=== PATIENT | female | born 1970 | race Caucasian/White ===

== ENCOUNTER 2016-10-10 19:59 | Emergency (ER) | payer MEDICAID ==
[~2016-10-10] VITALS: Ht 172.7 cm; Wt 127.0 kg
[~2016-10-10 19:59] MED LIST: ACYCLOVIR 400M400 MG PO; AMOXICILLIN 50500 MG PO; AMOXICILLIN AND1 TA2 PO; AMOXIL500 M1 PO; AZO STANDARD97.5 MG PO; BACTRIM DS 8001 TAB PO; CIPRO 500MG TA500 MG PO; CLINDAMYCIN HC300 MG PO; Compazine10 MG PO; ESTRADIOL1 EAC3 TD; HYDROCHLOROTH12.5 M1 PO; HYDROCODONE-APA1 TA2 PO; IBU400 MG PO; KEFLEX 500MG.500 MG PO; LISINOPRIL HCTZ1 TAB PO; MEDROL 4MG. DOSE4 MG PO; PREMPRO 0.625 M1 TAB PO; QVAR0.08 MG/AC IH; TORADOL10 MG PO; TYLENOL 8 HOUR650 MG PO; VALIUM 5MG TABLE5 MG PO
--- OUTSIDE RECORDS SUMMARY | 2016-10-10 20:13 | External Medical Summary Rpt ---
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 Name Role Phone [facility] Unavailable Unavailable MEDICAL GROUP, [facility] HERNANDEZ TER, HERNANDEZ TER Unavailable Unavailable JAVIER L, JAVIER L Unavailable Unavailable [facility]available [facility], [facility] MAZARIEGOS ALL, MAZARIEGOS ALL Unavailable Unavailable GAGE, GAGE Unavailable Unavailable GAGE MOTLEY, Unavailable Unavailable GAGE MOTLEY JACOB ARELY, Unavailable Unavailable JACOB ARELY [place] [facility] YOLANDE TOMAS-Zuleyma Unavailable Unavailable CORBINYOLANDE-C CORBIN SPARROW JADEN, SPARROW JADEN Unavailable Unavailable TUCKER, TUCKER Unavailable Unavailable ARAGON, ARAGON Unavailable Unavailable FRYMAN, FRYMAN Unavailable Unavailable FRYMAN EUG, FRYMAN Unavailable Unavailable EUG JEFFRY REESE, JEFFRY Unavailable Unavailable HUGH ROSIBEL ROMAN MD, Unavailable Unavailable ROSIBEL CAPELLANPEL SHASTA, HARPEL Unavailable Unavailable SHASTA [facility] Unavailable Unavailable INC, [facility] Unavailable Unavailable [facility], [facility] Unavailable Unavailable HOSPITAL P, [facility] P [facility], Unavailable Unavailable [facility] CANTRELL AMA, CANTRELL Unavailable Unavailable [facility]MA [facility] Janes Jamison MD, Unavailable Unavailable Janes LOPEZ, Unavailable Unavailable EVENS LOPEZ, Unavailable Unavailable EVENS RAMÍREZ, Unavailable Unavailable HARPER RAMÍREZ [facility] Un[facility], [facility] RENEE PRA, RENEE PRA Unavailable Unavailable PICKLESIMER JR SANTOSH, Unavailable Unavailable [facility]LESIM[facility] JR SANTOSH SHANIKA HEN, SHANIKA Unavailable Unavailable HEN CUNNINGHAM, CUNNINGHAM Unavailable Unavailable SADEK MOH, SADEK MOH Unavailable Unavailable SCHULSTAD CAM, Unavailable Unavailable SCHULSTAD CAM MAURILIO, STONE Unavailable Unavailable SAVANNA BARKER, SAVANNA Unavailable Unavailable LUCERO Purpose Continuity of Care Document - 12-11-2012 through 2016 Problems Code Diagnosis DOS Provider Status [id number] PAIN IN 07-10-2016 [place] RIGHT [facility] SHOULDER C CENTE M5381 OTHER SPEC 07-10-2016 [place] DORSOPATHIE CHIROPRACTI S C CENTE OCCIPITO-AT HEATHER-AXIAL RGN M5386 OTHER 07-10-2016 [place] SPECIFIED [facility]IROPRACTI DORSOPATHIE C CENTE S LUMBAR REGION M5442 LUMBAGO 07-10-2016 [place] WITH [facility] SCIATICA C CENTE LEFT SIDE M546 PAIN IN 07-10-2016 [place] THORACIC [facility] SPINE C CENTE M9906 SEGMENTAL & 07-10-2016 [place] SOMATIC [facility] DYSFUNCTION C CENTE LOWER EXTREMITY [id number] ACUTE 06-29-2016 [facility] SUPPURATIVE PHYSICIANS OM W/O GROUP RUPT EAR DRUM RT EAR R109 UNSPECIFIED 06-29-2016 [facility] ABDOMINAL PHYSICIANS PAIN GROUP J40 BRONCHITIS 05-25-2016 [facility] NOT PHYSICIANS SPECIFIED GROUP ACUTE OR CHRONIC J0100 ACUTE 05-22-2016 [facility] MAXILLARY PHYSICIANS SINUSITIS GROUP UNSPECIFIED Z1231 ENCOUNTER 05-01-2016 [facility] NEOPLASM BREAST N951 MENOPAUSAL 04-25-2016 [facility] AND FEMALE PHYSICIANS CLIMACTERIC GROUP STATES D94316 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[facility] 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 AND 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 EXAM PHYSICIANS GENERAL RTN GROUP W/O ABNORMAL FIND Z1212 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[facility] SCREENING PHYSICIANS MALIGNANT GROUP NEOPLASM RECTUM J0390 ACUTE 04-13-2016 [facility] TONSILLITIS PHYSICIANS GROUP UNSPECIFIED M542 CERVICALGIA 03-30-2016 [place] [facility]ENT[facility] [id number] SPRAIN 03-30-2016 [place] LIGAMENTS CHIROPRACTI LUMBAR C CENTE SPINE INITIAL ENCOUNTER [id number] STRAIN 03-30-2016 [place] MUSCLE [facility]IROPRACTI FASCIA & C CENTE TENDON LOW BACK INITIAL R38347 PAIN IN 03-28-2016 [facility] M7989 OTHER 03-28-2016 [facility] SPECIFIED MEDICAL SOFT TISSUE IMAGING ASS DISORDERS 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 M654 RADIAL 03-15-2016 [facility] STYLOID PHYSICIANS TENOSYNOVIT GROUP IS DE QUERVAIN Q21687 GANGLION 03-15-2016 [facility] RIGHT WRIST PHYSICIANS GROUP N67950 GANGLION 03-15-2016 [facility] LEFT WRIST PHYSICIANS GROUP J029 ACUTE 03-07-2016 [facility] PHARYNGITIS PHYSICIANS GROUP UNSPECIFIED H64727 PAIN IN 03-07-2016 [facility] WRIST [facility] ASS Z01907 GANGLION 03-07-2016 [facility] RIGHT HAND PHYSICIANS GROUP U17921 GANGLION 03-07-2016 [facility] LEFT HAND PHYSICIANS GROUP A41407 PAIN IN 03-07-2016 [facility] M9903 SEGMENTAL & 01-21-2016 [place] SOMATIC CHIROPRACTI DYSFUNCTION C CENTE OF LUMBAR REGION M545 LOW BACK 01-11-2016 [place] PAIN [facility]IROPRACTI C CENTE I10 ESSENTIAL 01-04-2016 [facility] HYPERTENSIO INC N K1120 SIALOADENIT 01-04-2016 [facility], UNSPECIFIED PLLC K1121 ACUTE 01-04-2016 [facility] SIALOADENIT [facility] IS INC J329 CHRONIC 12-27-2015 [facility] J0140 ACUTE 11-22-2015 [facility] S MEDICAL UNSPECIFIED GROUP H6980 OTHER SPEC 11-09-2015 [facility] DISORDERS PHYSICIANS EUSTACHIAN GROUP TUBE UNS EAR V16935 UNSPECIFIED 11-09-2015 [facility] ASTHMA PHYSICIANS UNCOMPLICAT GROUP ED R5383 OTHER 11-09-2015 [facility] FATIGUE PHYSICIANS GROUP Z840 FAMILY 11-09-2015 [facility] HISTORY PHYSICIANS DISEASES GROUP SKIN & SUBQ TISSUE Z0100 ENCOUNTER 11-04-2015 [facility] EXAM EYES & GRE VISION W/O ABNORMAL FIND H6690 OTITIS 09-22-2015 [facility] MEDIA PHYSICIANS UNSPECIFIED GROUP UNSPECIFIED EAR J040 ACUTE 09-22-2015 [facility] LARYNGITIS PHYSICIANS GROUP U45263 OTHER ACUTE 09-12-2015 [facility] OM RECURRENT BILAT J0190 ACUTE 09-12-2015 [facility] J209 ACUTE 09-12-2015 [facility]IS [facility] D259 LEIOMYOMA 06-03-2015 [facility] UNSPECIFIED K660 PERITONEAL 06-03-2015 [facility] ADHESIONS [facility] POSTPROC INC POSTINFECTI ON N736 FEMALE 06-03-2015 [facility] PELVIC PHYSICIANS PERITONEAL GROUP ADHESIONS POSTINFECTI VE N800 ENDOMETRIOS 06-03-2015 [facility] IS OF LLC UTERUS N831 CORPUS 06-03-2015 [facility] LUTEUM CYST LLC N8320 UNSPECIFIED 06-03-2015 [facility] OVARIAN PHYSICIANS CYSTS GROUP N856 INTRAUTERIN 06-03-2015 [facility] E SYNECHIAE LLC N938 OTHER SPEC 06-03-2015 [facility] ABNORMAL PHYSICIANS UTERINE & GROUP VAGINAL BLEEDING R102 PELVIC AND 06-03-2015 [facility] PERINEAL [facility] PAIN INC B9689 OTH SPEC 05-24-2015 ROSIBEL Ceballos BACTERIAL JESSIE BOTELLO AGNT CAUSE DZ CLASSIFIED ELSW N760 ACUTE 05-24-2015 ROSIBEL ROMAN MD X74787 ENCOUNTER 05-24-2015 [facility] FOR OTHER [facility] PREPROCEDUR INC AL EXAMINATION N852 HYPERTROPHY 05-10-2015 [facility] N9489 OTH COND 05-04-2015 [facility] Ceballos ASSOC W/EB ROMAN MD GEN ORGN & MENSTRUAL CYCL 4019 UNSPECIFIED 02-03-2015 [facility] N 89801 ASTHMA, 02-03-2015 [facility] STATUS 5990 URINARY 02-03-2015 [facility] SITE NOT SPECIFIED 33162 ABDOMINAL 01-05-2015 [facility] PAIN OTHER [facility] SPECIFIED INC SITE 91135 OTHER 11-03-2014 [facility] SPECIFIED MEDICAL DISORDER OF IMAGING ASS KIDNEY AND URETER 52299 ABDOMINAL 11-03-2014 [facility] PAIN RIGHT [facility] UPPER INC QUADRANT V1301 PERSONAL 11-03-2014 [facility] HISTORY OF [facility] URINARY INC CALCULI 462 ACUTE 10-07-2014 [facility] PHARYNGITIS [facility] P 31402 ACUTE 10-07-2014 [facility] MENTION OF OBSTRUCTIO 01201 UNSPECIFIED 09-14-2014 ROSIBEL ROMAN MD AND VULVOVAGINI TIS 6262 EXCESSIVE 09-14-2014 ROSIBEL Ceballos OR MELANY ROMAN MD MENSTRUATIO N 0794 HUMAN 08-28-2014 [facility] VIRUS IN CCE & UNS SITE 6268 OTH D/O 08-28-2014 [facility] MENSTRUATIO [facility] N&OTH ABN INC BLEED FE GNT TRACT 6202 OTHER AND 08-27-2014 ROSIBEL Ceballos UNSPECREEMA ROMAN MD OVARIAN CYST V7283 OTHER 08-27-2014 [facility] SPECIFIED [facility] PRE-OPERATI INC VE EXAMINATION 6259 UNSPEC 08-25-2014 [facility] SYMPTOM [facility] ASSOC INC W/FEMALE GENITAL ORGANS 6272 SYMPTOMATIC 07-30-2014 ROSIBEL ROMAN MD MENOPAUSAL/ FEMALE CLIMACTERIC STATES V7612 OTHER 06-16-2014 [facility] SCREENING [facility] MAMMOGRAM INC 401.9 401.9 12-11-2012 [place] HYPERTENSIO [facility] 493.90 493.90 12-11-2012 [facility] K11.21 ACUTE SIALOADENIT IS N73.6 FEMALE [facility] PERITONEAL ADHESIONS (POSTINFECT DOMIN[facility]) R10.9 UNSPECIFIED ABDOMINAL PAIN R16.2 HEPATOMEGAL Y WITH SPLENOMEGAL Y, NOT ELSEWHERE CLASSIFIED Allergies, Adverse Reactions, Alerts Type Drug Allergy Adverse Reaction to Substance Substance Reaction Severity Erythromycin Unknown Unknown Chlorpheniramine Unknown Unknown Ibuprofen Unknown Unknown Hydrocodone Unknown Unknown Clinical Alert Notifications Alert Asthma: no influenza vaccine in the last 365 days Medications Na ND Rx Da Fi Fi Am Da Di Ph RX Ph St me C No te ll ll ou ys ag ar # ys at rm s nt no ma ic us Or Da si cy ia de te s n re d ES 00 03 04 8. 28 00 RI Ac TR 37 -1 -0 00 00 TE ti AD 84 3- 7- 0 01 ve IO 64 20 20 15 AI L 02 17 17 92 D 0. 6 37 PH 1 AR MG MA CY PA TC #3 H 93 8 AM 00 02 03 20 10 00 RI Ac OX 78 -2 -2 .0 00 TE ti IC 12 4- 4- 00 01 ve IL 61 20 20 17 AI LI 30 17 17 27 D N 5 55 PH 50 AR 0 MA MG CY CA #3 PS 93 UL 8 E LI 68 02 03 30 30 00 RI Ac SI 18 -2 -1 .0 00 TE ti NO 00 2- 7- 00 01 ve OR 52 20 20 16 AI IL 00 17 17 26 D -H [address] AR Z MA 20 CY -2 5 #3 MG 93 8 TA B ES 00 02 03 8. 28 00 RI Ac TR 37 -1 -1 00 00 TE ti AD 84 5- 0- 0 01 ve IO 64 20 20 15 AI L 02 17 17 92 D 0. 6 37 PH 1 AR MG MA CY PA TC #3 H 93 8 AM 66 01 02 20 10 00 RI Ac OX 68 -2 -2 .0 00 TE ti -C 51 6- 4- 00 01 ve LA 00 20 20 16 AI V 10 17 17 85 D 87 0 91 PH 5- AR 12 MA 5 CY MG #3 TA 93 BL 8 ET OR 59 01 02 10 5 00 RI Ac ED 74 -2 -2 .0 00 TE ti NI 60 6- 4- 00 01 ve SO 17 20 20 16 AI NE 50 17 17 85 D 6 92 PH 20 AR MA MG CY TA #3 BL 93 ET 8 LI 68 01 02 30 30 00 RI Ac SI 18 -1 -1 .0 00 TE ti NO 00 5- 0- 00 01 ve OR 52 20 20 16 AI IL 00 17 17 26 D -H [address] AR Z MA 20 CY -2 5 #3 MG 93 8 TA B AM 66 01 01 20 10 00 RI Ac OX 68 -0 -2 .0 00 TE ti -C 51 2- 7- 00 01 ve LA 00 20 20 16 AI V 10 17 17 49 D 87 0 65 PH 5- AR 12 MA 5 CY MG #3 TA 93 BL 8 ET ES 00 12 01 8. 28 00 RI Ac TR 37 -2 -2 00 00 TE ti AD 84 6- 0- 0 01 ve IO 64 20 20 15 AI L 02 16 17 92 D 0. 6 37 PH 1 AR MG MA CY PA TC #3 H 93 8 CL 65 12 01 20 10 00 RI Ac AR 86 -2 -2 .0 00 TE ti IT 20 2- 0- 00 01 ve HR 22 20 20 16 AI OM 66 16 17 36 D YC 0 13 PH IN AR MA 50 CY 0 MG #3 93 TA 8 BL ET OR 00 12 01 20 10 00 RI Ac OM 60 -2 -2 0. 00 TE ti ET 31 2- 0- 00 01 ve RAMIRES 58 20 20 0 16 AI ZI 65 16 17 36 D NE 4 14 PH -D AR M MA SY CY RU P #3 93 8 OR 00 12 01 10 5 00 RI Ac ED 14 -2 -2 .0 00 TE ti NI 39 2- 0- 00 01 ve SO 73 20 20 16 AI NE 80 16 17 36 D 1 15 PH 20 AR MA MG CY TA #3 BL 93 ET 8 AL 00 12 01 22 25 00 RI Ac BU 48 -2 -2 5. 00 TE ti TE 79 2- 0- 00 01 ve RO 90 20 20 0 16 AI L 42 16 17 36 D JUAREZ 5 17 PH L AR 1. MA 25 CY MG #3 /3 93 8 ML SO L AM 00 12 01 20 10 00 RI Ac OX 78 -1 -1 .0 00 TE ti IC 12 9- 3- 00 01 ve IL 61 20 20 16 AI LI 30 16 17 31 D N 5 64 PH 50 AR 0 MA MG CY CA #3 PS 93 UL 8 E LI 68 12 01 30 30 00 RI Ac SI 18 -1 -1 .0 00 TE ti NO 00 5- 3- 00 01 ve OR 52 20 20 16 AI IL 00 16 17 26 D -H [address] AR Z MA 20 CY -2 5 #3 MG 93 8 TA B SO 00 07 0 No DI 40 -1 UM 97 0- Lo 98 20 ng CH 30 13 er LO 9 RI Ac DE ti ve 0. 9% SO RUBY TI ON Sa 63 07 0 No li 80 -1 ne 70 0- Lo 10 20 ng Fl 07 13 er us 5 h Ac 10 ti ML ve Sy ri ng e Me 00 07 0 No th 00 -1 yl 90 0- Lo pr 19 20 ng ed 00 13 er ni 9 so Ac lo ti ne ve So d Juarez cc in a KE 00 07 0 No TO 40 -1 RO 93 0- Lo LA 79 20 ng C 50 13 er 30 1 Ac MG ti /M ve L AL AC 51 07 0 No ET 07 -1 AM 90 0- Lo IN 16 20 ng OP 19 13 er HE 9H N Ac W/ ti CO ve DE IN E #3 TA K CE 00 07 0 No FT 40 -1 RI 97 0- Lo AX 33 20 ng ON 30 13 er E 4 1 Ac GM ti ve AL So 00 07 0 No d 07 -1 Ch 47 0- Lo lo 10 20 ng ri 11 13 er de 3 Ac 0. ti 9% ve 50 ML Ad v Vital Signs 12-11-2012 05:25 Name Value Interpretat Reference Comment ion Range Body 99.1 [degF] Temperature BP 90 mm[Hg] Diastolic BP Systolic 164 mm[Hg] Heart 96 /min Rate/Pulse O2% 97 % Respiratory 22 /min Rate Results Labs Lab Lab Date Result Refere Interp Status Commen Order Detail nces retati t Range on STREP SCREEN (RAPID) (12-11-2012 04:31) STREP NEGATIV complet SCREEN 013 E ed (RAPID) 04:31 Procedures Procedure DOS Code Location Performer Comment [facility] 22822 [place] [facility] T[facility] 7 MANIPULAT [facility] SPINAL 1-2 REGIONS MANUAL 99173 [place] [facility] 7 TQS 1/> [facility] REGIONS TIC CENTE EACH 15 MINUTES THERAPEUT 39314 [facility] STONE IC 7 PHYSICIAN PROPHYLAC S GROUP TIC/DX INJECTION SUBQ/IM URNLS DIP 61660 [facility] 7 PHYSICIAN PHYSICIAN STICK/TAB S GROUP S GROUP LET RGNT NON-AUTO W/O MICRSCP INJECTION J0696 [facility] STONE 7 PHYSICIAN CEFTRIAXO S GROUP NE SODIUM PER 250 MG INJECTION J0696 [facility] STONE 6 PHYSICIAN CEFTRIAXO S GROUP NE SODIUM PER 250 MG THERAPEUT 36238 [facility] STONE IC 6 PHYSICIAN PROPHYLAC S GROUP TIC/DX INJECTION SUBQ/IM INJECTION J0696 [facility] FRYMAN 6 PHYSICIAN CEFTRIAXO S GROUP NE SODIUM PER 250 MG THERAPEUT 17275 [facility] FRYMAN IC 6 PHYSICIAN PROPHYLAC S GROUP TIC/DX INJECTION SUBQ/IM SCREENING G0202 [facility] MAMMOGRAP INC INC HY MICHELE INCL CAD WHEN PERFORMD COMPUTER- 62426 [facility] AIDED 6 [facility] DETECTION INC INC SCREENING MAMMOGRAP HY IADNA NOS 62943 BIO BIO 6 REFERNCE REFERNCE AMPLIFIED LABORATOR LABORATOR PROBE TQ IES IES EACH ORGANISM IADNA 91071 BIO BIO NEISSERIA 6 REFERNCE REFERNCE LABORATOR LABORATOR GONORRHOE IES IES AE AMPLIFIED PROBE TQ CYTP C/V 54228 BIO BIO AUTO THIN 6 REFERNCE REFERNCE LYR LABORATOR LABORATOR PREPJ SCR IES IES MNL RESCR PHYS IADNA 81363 [facility] NEISSERIA 6 PHYSICIAN PHYSICIAN S GROUP S GROUP GONORRHOE AE DIRECT PROBE TQ IADNA 07161 BIO BIO CHLAMYDIA 6 REFERNCE REFERNCE LABORATOR LABORATOR TRACHOMAT IES IES IS AMPLIFIED PROBE TQ URINLS 77547 [facility] HARPEL DIP 6 PHYSICIAN SHASTA STICK/TAB S GROUP LET REAGNT NON-AUTO MICRSCPY CULTURE 93568 [facility] HARPEL CHLAMYDIA 6 PHYSICIAN SHASTA ANY S GROUP SOURCE IADNA 16290 BIO BIO TRICHOMON 6 REFERNCE REFERNCE LABORATOR LABORATOR VAGINALIS IES IES AMPLIFIED PROBE TECH INJECTION J0696 [facility] FR[facility]MAN 6 PHYSICIAN EUG CEFTRIAXO S GROUP NE SODIUM PER 250 MG THERAPEUT 50506 [facility] FRYMAN IC 6 PHYSICIAN EUG PROPHYLAC S GROUP TIC/DX INJECTION SUBQ/IM MANUAL 66488 [place] [facility] THERAPY 6 AMA TQS 1/> [facility] REGIONS TIC CENTE EACH 15 MINUTES CHIROPRAC 99847 [place] CANT[facility] TIC 6 AMA MANIPULAT [facility]OP[facility] TX TIC CENTE SPINAL 3-4 REGIONS CHIROPRAC 69647 [place] CANTRELL TIC 6 AMA MANIPLTV CHIROPRAC TX TIC CENTE EXTRASPIN AL 1/> REGION MRI UPPER 61245 [facility] EXTREMITY INC INC OTH THAN JT W/O CONTR MATRL MANUAL 20042 [place] [facility] THERAPY 6 AMA TQS 1/> [facility] REGIONS TIC CENTE EACH 15 MINUTES APPL 74884 [place] C[facility] MODALITY 6 AMA 1/> AREAS CHIROPRAC TIC CENTE ULTRASOUN D EA 15 MIN [facility] 40724 [place] CANTRELL TIC 6 AMA MANIPULAT [facility] TX TIC CENTE SPINAL 3-4 REGIONS APPL 37118 [place] CANTRELL MODALITY 6 AMA 1/> AREAS CHIROPRAC ELEC TIC CENTE STIMJ UNATTENDE D APPL 31301 [place] CANTRELL MODALITY 6 AMA 1/> AREAS CHIROPRAC ELEC TIC CENTE STIMJ UNATTENDE D RADEX 70445 [facility] HAND 2 6 [facility] VIEWS INC INC MANUAL 25075 [place] CANTRELL THERAPY 6 AMA TQS 1/> CHIROPRAC REGIONS TIC CENTE EACH 15 MINUTES APPL 86909 [place] CANTRELL MODALITY 6 AMA 1/> AREAS CHIROPRAC TIC CENTE ULTRASOUN D EA 15 MIN CHIROPRAC 74659 [place] CANTRELL TIC 6 AMA MANIPULAT CHIROPRAC DOMINICK TX TIC CENTE SPINAL 3-4 REGIONS RADEX 04605 [facility] MAZARIEGOS ALL WRIST 2 6 MEDICAL VIEWS IMAGING ASS THERAPEUT 25186 [facility] IC 6 PHYSICIAN PHYSICIAN PROPHYLAC S GROUP S GROUP TIC/DX INJECTION SUBQ/IM APPL 20915 [place] CANTRELL MODALITY 6 AMA 1/> AREAS CHIROPRAC TIC CENTE ULTRASOUN D EA 15 MIN [facility]OP[facility]AC 74030 [place] CANTRELL TIC 6 AMA MANIPULAT CHIROPRAC [facility] TX TIC CENTE SPINAL 3-4 REGIONS MANUAL 04237 [place] CANT[facility]LL THERAPY 6 AMA TQS 1/> CHIROPRAC REGIONS TIC CENTE EACH 15 MINUTES APPL 96993 [place] CANTRELL MODALITY 6 AMA 1/> AREAS CHIROPRAC ELEC TIC CENTE STIMJ UNATTENDE D APPL 24821 [place] CANTRELL MODALITY 6 AMA 1/> AREAS CHIROPRAC ELEC TIC CENTE STIMJ UNATTENDE D MANUAL 36823 [place] CANT[facility]LL THERAPY 6 AMA TQS 1/> CHIROPRAC REGIONS TIC CENTE EACH 15 MINUTES APPL 94958 [place] CANTRELL MODALITY 6 AMA 1/> AREAS CHIROPRAC TIC CENTE ULTRASOUN D EA 15 MIN [facility]AC 36467 [place] CANTRELL TIC 6 AMA MANIPULAT CHIROPRAC [place] TX TIC CENTE SPINAL 3-4 REGIONS APPL 55257 [place] CANT[facility]LL MODALITY 6 AMA 1/> AREAS CHIROPRAC ELEC TIC CENTE STIMJ UNATTENDE D MANUAL 50491 [place] CANT[facility]LL THERAPY 6 AMA TQS 1/> CHIROPRAC REGIONS TIC CENTE EACH 15 MINUTES APPL 74117 [place] CANT[facility]LL MODALITY 6 AMA 1/> AREAS CHIROPRAC TIC CENTE ULTRASOUN D EA 15 MIN [facility]IROPRAC 84975 [place] CANTRELL TIC 6 AMA MANIPULAT CHIROPRAC [place] TX TIC CENTE SPINAL 3-4 REGIONS MANUAL 72956 [place] [facility] THERAPY 6 AMA TQS 1/> CHIROPRAC REGIONS TIC CENTE EACH 15 MINUTES APPL 21756 [place] CANT[facility]LL MODALITY 6 AMA 1/> AREAS CHIROPRAC TIC CENTE ULTRASOUN D EA 15 MIN [facility]OPRAC 25226 [place] CANT[facility]LL TIC 6 AMA MANIPULAT CHIROPRAC DOM[place] TX TIC CENTE SPINAL 3-4 REGIONS APPL 22505 [place] C[facility] MODALITY 6 AMA 1/> AREAS CHIROPRAC ELEC TIC CENTE STIMJ UNATTENDE D APPL 04356 [place] C[facility] MODALITY 6 AMA 1/> AREAS CHIROPRAC ELEC TIC CENTE STIMJ UNATTENDE D MANUAL 18517 [place] [facility] THERAPY 6 AMA TQS 1/> CHIROPRAC REGIONS TIC CENTE EACH 15 MINUTES APPL 60127 [place] [facility] MODALITY 6 AMA 1/> AREAS CHIROPRAC TIC CENTE ULTRASOUN D EA 15 MIN CHIROPRAC 91261 [place] C[facility] TIC 6 AMA MANIPULAT CHIROPRAC [facility] TX TIC CENTE SPINAL 3-4 REGIONS CHIROPRAC 54334 [place] C[facility] TIC 6 AMA MANIPLTV CHIROPRAC TX TIC CENTE EXTRASPIN AL 1/> REGION THERAPEUT 91446 [place] [facility] IC PX 1/> 6 AMA AREAS CHIROPRAC EACH 15 TIC CENTE MIN EXERCISES CHIROPRAC 98803 [place] [facility] TIC 6 AMA MANIPULAT CHIROPRAC [facility] TX TIC CENTE SPINAL 3-4 REGIONS APPL 05633 [place] [facility] MODALITY 6 AMA 1/> AREAS CHIROPRAC ELEC TIC CENTE STIMJ UNATTENDE D APPL 77033 [place] [facility] MODALITY 6 AMA 1/> AREAS CHIROPRAC TRACTION TIC CENTE MECHANICA L CHIROPRAC 90231 [place] [facility] TIC 6 AMA MANIPLTV CHIROPRAC TX TIC CENTE EXTRASPIN AL 1/> REGION MANUAL 14712 [place] [facility] THERAPY 6 AMA TQS 1/> [facility]RAC REGIONS TIC CENTE EACH 15 MINUTES APPL 94817 [place] [facility] MODALITY 6 AMA 1/> AREAS CHIROPRAC TIC CENTE ULTRASOUN D EA 15 MIN MANUAL 64232 [place] [facility] THERAPY 6 AMA TQS 1/> CHIROPRAC REGIONS TIC CENTE EACH 15 MINUTES APPL 89319 [place] [facility] MODALITY 6 AMA 1/> AREAS CHIROPRAC TIC CENTE ULTRASOUN D EA 15 MIN [facility]AC 16296 [place] [facility] TIC 6 AMA MANIPULAT CHIROPRAC [facility] TX TIC CENTE SPINAL 3-4 REGIONS APPL 87451 [place] [facility] MODALITY 6 AMA 1/> AREAS CHIROPRAC ELEC TIC CENTE STIMJ UNATTENDE D APPL 09473 [place] [facility] MODALITY 6 AMA 1/> AREAS CHIROPRAC TRACTION TIC CENTE MECHANICA L CHIROPRAC 00551 [place] [facility] TIC 6 AMA MANIPLTV CHIROPRAC TX TIC CENTE EXTRASPIN AL 1/> REGION APPL 40012 [place] [facility] MODALITY 6 AMA 1/> AREAS CHIROPRAC ELEC TIC CENTE STIMJ UNATTENDE D APPL 86973 [place] [facility] MODALITY 6 AMA 1/> AREAS CHIROPRAC TRACTION TIC CENTE MECHANICA L CHIROPRAC 50700 [place] [facility] TIC 6 AMA MANIPLTV CHIROPRAC TX TIC CENTE EXTRASPIN AL 1/> REGION MANUAL 99385 [place] [facility] THERAPY 6 AMA TQS 1/> CHIROPRAC REGIONS TIC CENTE EACH 15 MINUTES APPL 24490 [place] [facility] MODALITY 6 AMA 1/> AREAS CHIROPRAC TIC CENTE ULTRASOUN D EA 15 MIN CHIROPRAC 94918 [place] TIC 6 AMA MANIPULAT CHIROPRAC DOMINICK TX TIC CENTE SPINAL 3-4 REGIONS APPL 70262 [place] MODALITY 6 AMA 1/> AREAS [facility] ELEC TIC CENTE STIMJ UNATTENDE D APPL 17897 [place] MODALITY 6 AMA 1/> AREAS CHIROPRAC TRACTION TIC CENTE MECHANICA L CHIROPRAC 89398 [place] TIC 6 AMA MANIPLTV CHIROPRAC TX TIC CENTE EXTRASPIN AL 1/> REGION MANUAL 90063 [place] THERAPY 6 AMA TQS 1/> CHIROPRAC REGIONS TIC CENTE EACH 15 MINUTES APPL 45392 [place] MODALITY 6 AMA 1/> AREAS CHIROPRAC TIC CENTE ULTRASOUN D EA 15 MIN CHIROPRAC 04639 [place] TIC 6 AMA MANIPULAT CHIROPRAC [place] TIC CENTE SPINAL 3-4 REGIONS APPL 26263 [place] MODALITY 6 AMA 1/> AREAS CHIROPRAC ELEC TIC CENTE STIMJ UNATTENDE D APPL 44011 [place] MODALITY 6 AMA 1/> AREAS [facility]IR[facility] TRACTION TIC CENTE MECHANICA L RADEX 69015 [place] SPINE 6 AMA LUMBOSACR CHIROPRAC AL 2/3 TIC CENTE VIEWS CHIROPRAC 38878 [place] T[place] 6 AMA MANIPLTV CHIROPRAC TX TIC CENTE EXTRASPIN AL 1/> REGION MANUAL 05939 [place] THERAPY 6 AMA TQS 1/> CHIROPRAC REGIONS TIC CENTE EACH 15 MINUTES APPL 95941 [place] MODALITY 6 AMA 1/> AREAS CHIROPRAC TIC CENTE ULTRASOUN D EA 15 MIN CHIROPRAC 77669 [place] TIC 6 AMA MANIPULAT CHIROPRAC [place] TIC CENTE SPINAL 3-4 REGIONS CHIROPRAC 40720 [place] TIC 6 AMA MANIPULAT CHIROPRAC DOM[place] TIC CENTE SPINAL 3-4 REGIONS APPL 42091 [place] MODALITY 6 AMA 1/> AREAS CHIROPRAC TIC CENTE ULTRASOUN D EA 15 MIN MANUAL 10755 [place] THERAPY 6 AMA TQS 1/> CHIROPRAC REGIONS TIC CENTE EACH 15 MINUTES CHIROPRAC 57779 [place] TIC 6 AMA MANIPLTV CHIROPRAC TX TIC CENTE EXTRASPIN AL 1/> REGION APPL 50233 [place] MODALITY 6 AMA 1/> AREAS CHIROPRAC TRACTION TIC CENTE MECHANICA L APPL 95911 [place] MODALITY 6 AMA 1/> AREAS CHIROPRAC ELEC TIC CENTE STIMJ UNATTENDE D APPL 76048 [place] MODALITY 6 AMA 1/> AREAS CHIROPRAC ELEC TIC CENTE STIMJ UNATTENDE D APPL 39031 [place] MODALITY 6 AMA 1/> AREAS CHIROPRAC TRACTION TIC CENTE MECHANICA L CHIROPRAC 12268 [place] TIC 6 AMA MANIPLTV CHIROPRAC TX TIC CENTE EXTRASPIN AL 1/> REGION MANUAL 96351 [place] THERAPY 6 AMA TQS 1/> CHIROPRAC REGIONS TIC CENTE EACH 15 MINUTES APPL 54261 [place] MODALITY 6 AMA 1/> AREAS CHIROPRAC TIC CENTE ULTRASOUN D EA 15 MIN CHIROPRAC 45174 [place] TIC 6 AMA MANIPULAT CHIROPRAC DOMIN[place] TIC CENTE SPINAL 3-4 REGIONS APPL 32765 [place] MODALITY 6 AMA 1/> AREAS CHIROPRAC ELEC TIC CENTE STIMJ UNATTENDE D APPL 89763 [place] MODALITY 6 AMA 1/> AREAS CHIROPRAC TRACTION TIC CENTE MECHANICA L CHIROPRAC 64039 [place] TIC 6 AMA MANIPLTV CHIROPRAC TX TIC CENTE EXTRASPIN AL 1/> REGION MANUAL 38328 [place] THERAPY 6 AMA TQS 1/> CHIROPRAC REGIONS TIC CENTE EACH 15 MINUTES CHIROPRAC 47202 [place] TIC 6 AMA MANIPULAT CHIROPRAC DOMINICK TX TIC CENTE SPINAL 3-4 REGIONS MANUAL 73444 [place] THERAPY 6 AMA TQS 1/> CHIROPRAC REGIONS TIC CENTE EACH 15 MINUTES CHIROPRAC 85302 [place] TIC 6 AMA MANIPULAT CHIROPRAC DOMINICK TX TIC CENTE SPINAL 3-4 REGIONS APPL 40155 [place] CANT[place] MODALITY 6 AMA 1/> AREAS CHIROPRAC TRACTION TIC CENTE MECHANICA L CHIROPRAC 63009 [place] TIC 6 AMA MANIPLTV CHIROPRAC TX TIC CENTE EXTRASPIN AL 1/> REGION APPL 31951 [place] MODALITY 6 AMA 1/> AREAS CHIROPRAC ELEC TIC CENTE STIMJ UNATTENDE D APPL 11045 [place] MODALITY 6 1/> AREAS CHIROPRAC CHIROPRAC TRACTION TIC CENTE TIC CENTE MECHANICA L CHIROPRAC 40339 [place] TIC 6 AMA MANIPLTV CHIROPRAC TX TIC CENTE EXTRASPIN AL 1/> REGION THERAPEUT 03302 [place] CANT[place] IC PX 1/> 6 AMA AREAS CHIROPRAC EACH 15 TIC CENTE MIN EXERCISES MANUAL 31446 [place] C[place] THERAPY 6 AMA TQS 1/> CHIROPRAC REGIONS TIC CENTE EACH 15 MINUTES APPL 71511 [place] CANT[place] MODALITY 6 AMA 1/> AREAS CHIROPRAC TIC CENTE ULTRASOUN D EA 15 MIN CHIROPRAC 51182 [place] TIC 6 AMA MANIPULAT CHIROPRAC DOMINICK TX TIC CENTE SPINAL 3-4 REGIONS CHIROPRAC 92879 [place] TIC 6 AMA MANIPULAT CHIROPRAC DOMINICK TX TIC CENTE SPINAL 3-4 REGIONS MANUAL 88689 [place] CANT[place] THERAPY 6 AMA TQS 1/> CHIROPRAC REGIONS TIC CENTE EACH 15 MINUTES APPL 63427 [place] CANT[place] MODALITY 6 AMA 1/> AREAS CHIROPRAC TIC CENTE ULTRASOUN D EA 15 MIN APPL 71109 [place] MODALITY 6 1/> AREAS CHIROPRAC CHIROPRAC ELEC TIC CENTE TIC CENTE STIMJ UNATTENDE D APPL 49571 [place] CANT[place] MODALITY 6 AMA 1/> AREAS CHIROPRAC TRACTION TIC CENTE MECHANICA L CHIROPRAC 75468 [place] C[place] TIC 6 AMA MANIPLTV CHIROPRAC TX TIC CENTE EXTRASPIN AL 1/> REGION APPL 88982 [place] CANT[place] MODALITY 6 AMA 1/> AREAS CHIROPRAC ELEC TIC CENTE STIMJ UNATTENDE D APPL 60535 [place] MODALITY 6 1/> AREAS CHIROPRAC CHIROPRAC TRACTION TIC CENTE TIC CENTE MECHANICA L CHIROPRAC 22215 [place] TIC 6 AMA MANIPLTV CHIROPRAC TX TIC CENTE EXTRASPIN AL 1/> REGION MANUAL 88629 [place] C[place] THERAPY 6 AMA TQS 1/> CHIROPRAC REGIONS TIC CENTE EACH 15 MINUTES APPL 68931 [place] CANT[place] MODALITY 6 AMA 1/> AREAS CHIROPRAC TIC CENTE ULTRASOUN D EA 15 MIN CHIROPRAC 58110 [place] C[place] TIC 6 AMA MANIPULAT CHIROPRAC DOMINICK TX TIC CENTE SPINAL 3-4 REGIONS MANUAL 85156 [place] CANTRE[place] THERAPY 6 AMA TQS 1/> CHIROPRAC REGIONS TIC CENTE EACH 15 MINUTES APPL 97866 [place] MODALITY 6 1/> AREAS CHIROPRAC CHIROPRAC TIC CENTE TIC CENTE ULTRASOUN D EA 15 MIN CHIROPRAC 21137 [place] TIC 6 AMA MANIPULAT CHIROPRAC DOMINICK TX TIC CENTE SPINAL 3-4 REGIONS APPL 38755 [place] CANT[place] MODALITY 6 AMA 1/> AREAS CHIROPRAC ELEC TIC CENTE STIMJ UNATTENDE D APPL 19525 [place] CANT[place] MODALITY 6 AMA 1/> AREAS CHIROPRAC TRACTION TIC CENTE MECHANICA L CHIROPRAC 49761 JOSÉTHITYSHAWN BURDICKEL PRA TIC 6 MANIPLTV CHIROPRAC TX TIC CENTE EXTRASPIN AL 1/> REGION APPL 19202 [place] CANT[place] MODALITY 6 AMA 1/> AREAS CHIROPRAC ELEC TIC CENTE STIMJ UNATTENDE D APPL 69070 [place] MODALITY 6 1/> AREAS CHIROPRAC CHIROPRAC TRACTION TIC CENTE TIC CENTE MECHANICA L CHIROPRAC 25164 [place] TIC 6 AMA MANIPLTV CHIROPRAC TX TIC CENTE EXTRASPIN AL 1/> REGION MANUAL 92702 [place] CANT[place] THERAPY 6 AMA TQS 1/> CHIROPRAC REGIONS TIC CENTE EACH 15 MINUTES CHIROPRAC 01833 [place] CANT[place] TIC 6 AMA MANIPULAT CHIROPRAC DOMINICK TX TIC CENTE SPINAL 3-4 REGIONS MANUAL 16035 [place] CANTRELL THERAPY 6 AMA TQS 1/> CHIROPRAC REGIONS TIC CENTE EACH 15 MINUTES CHIROPRAC 23302 [place] CANT[place] TIC 6 AMA MANIPULAT CHIROPRAC DOMINICK TX TIC CENTE SPINAL 3-4 REGIONS APPL 19186 [place] CANTRELL MODALITY 6 AMA 1/> AREAS CHIROPRAC ELEC TIC CENTE STIMJ UNATTENDE D APPL 47127 [place] MODALITY 6 1/> AREAS CHIROPRAC CHIROPRAC TRACTION TIC CENTE TIC CENTE MECHANICA L CHIROPRAC 80906 [place] CANT[place] TIC 6 AMA MANIPLTV CHIROPRAC TX TIC CENTE EXTRASPIN AL 1/> REGION APPL 52080 [place] CANT[place] MODALITY 6 AMA 1/> AREAS CHIROPRAC ELEC TIC CENTE STIMJ UNATTENDE D APPL 85889 [place] CANT[place] MODALITY 6 AMA 1/> AREAS CHIROPRAC TRACTION TIC CENTE MECHANICA L CHIROPRAC 07803 [place] CANT[place] TIC 6 AMA MANIPLTV CHIROPRAC TX TIC CENTE EXTRASPIN AL 1/> REGION MANUAL 01757 [place] CANT[place] THERAPY 6 AMA TQS 1/> CHIROPRAC REGIONS TIC CENTE EACH 15 MINUTES CHIROPRAC 77309 [place] C[place] TIC 6 AMA MANIPULAT CHIROPRAC DOMINICK TX TIC CENTE SPINAL 3-4 REGIONS MANUAL 78357 [place] CANT[place] THERAPY 6 AMA TQS 1/> CHIROPRAC REGIONS TIC CENTE EACH 15 MINUTES CHIROPRAC 23256 [place] CANT[place] TIC 6 AMA MANIPULAT CHIROPRAC DOMINICK TX TIC CENTE SPINAL 3-4 REGIONS APPL 45268 [place] CANT[place] MODALITY 6 AMA 1/> AREAS CHIROPRAC ELEC TIC CENTE STIMJ UNATTENDE D APPL 57387 [place] CANT[place] MODALITY 6 AMA 1/> AREAS CHIROPRAC TRACTION TIC CENTE MECHANICA L CHIROPRAC 43527 [place] C[place] TIC 6 AMA MANIPLTV CHIROPRAC TX TIC CENTE EXTRASPIN AL 1/> [place] [address] [place] CANTRELL 1/> AREAS 6 AMA EACH 15 CHIROPRAC [place] [address] [place] CANTRELL 1/> AREAS 6 AMA EACH 15 CHIROPRAC MIN TIC CENTE NEUROMUSC REEDUCA APPL 88814 [place] CANT[place] MODALITY 6 AMA 1/> AREAS CHIROPRAC ELEC TIC CENTE STIMJ UNATTENDE D APPL 69367 [place] CANT[place] MODALITY 6 AMA 1/> AREAS CHIROPRAC TRACTION TIC CENTE MECHANICA L CHIROPRAC 35229 EMMIE CANTRELL TIC 6 AMA MANIPLTV CHIROPRAC TX TIC CENTE EXTRASPIN AL 1/> REGION MANUAL 64328 EMMIE CANTRELL THERAPY 6 AMA TQS 1/> CHIROPRAC REGIONS TIC CENTE EACH 15 MINUTES CHIROPRAC 20114 EMMIE CANTRELL TIC 6 AMA MANIPULAT CHIROPRAC DOMINICK TX TIC CENTE SPINAL 3-4 REGIONS IAADIADOO 11036 [facility] ORTHODOX SHANIKA 6 [facility] STREPTOCO MEDICAL CCUS GROUP GROUP A ANTINUCLE 07110 ANTONIO ALVAREZ AR 6 [facility] [place] [address] ANTONIO ALVAREZ THYROXINE 6 [facility] TOTAL INC INC COLLECTIO 51287 [facility] YOLANDE N VENOUS 6 PHYSICIAN STONE BLOOD S GROUP PA-Zuleyma ALANIZ VENIPUNCT URE BLOOD 07674 ANTONIO ALVAREZ COUNT 6 [facility] COMPLETE INC INC AUTO&AUTO DIFRNTL WBC DNA 33290 ANTONIO ALVAREZ ANTIBODY 6 [facility] [place]/DO INC INC UBLE STRANDED C-REACTIV 35064 ANTONIO ALVAREZ E PROTEIN 6 [place] [address] ANTONIO ALVAREZ THYROID 6 [facility] STIMULATI INC INC NG HORMONE TSH COMPREHEN 51360 ANTONIO ALVAREZ SIVE 6 [facility] METABOLIC INC INC PANEL SEDIMENTA 65367 ANTONIO ALVAREZ TION RATE 6 [facility] RBC INC INC NON-AUTOM ATED CREATINE 23842 ANTONIO ALVAREZ KINASE 6 [facility] TOTAL INC INC 25 39558 ANTONIO ALVAREZ HYDROXY 6 [facility] INCLUDES INC INC FRACTIONS IF PERFORMED OPHTH 88779 [facility] 6 GRE GRE XM&EVAL COMPRE NEW PT 1/> VST INJECTION J1040 [facility] JEFFRY 6 PHYSICIAN HUGH METHYLPRE S GROUP DNISOLONE ACETATE 80 MG INJECTION J0696 [facility] JEFFRY 6 PHYSICIAN HUGH CEFTRIAXO S GROUP NE SODIUM PER 250 MG THERAPEUT 67919 [facility] IC 6 PHYSICIAN HUGH PROPHYLAC S GROUP TIC/DX INJECTION SUBQ/IM THERAPEUT 14630 [facility] JEFFRY IC 6 PHYSICIAN HUGH PROPHYLAC S GROUP TIC/DX INJECTION SUBQ/IM INJECTION J0696 [facility] 6 PHYSICIAN HUGH CEFTRIAXO S GROUP NE SODIUM PER 250 MG INJECTION J1040 [facility] REG[facility]AL 6 PHYSICIAN HUGH METHYLPRE S GROUP DNISOLONE ACETATE 80 MG INJECTION J1100 [address] SONE SODIUM PHOSPHATE 1 MG THERAPEUT 53225 [facility] IC 6 [facility] TIC/DX INJECTION SUBQ/IM INJECTION J05[address] N G [place] E 955781 UNITS TOTAL 35352 [facility] SCHULSTAD ABDOMINAL 5 PHYSICIAN CAM S GROUP HYSTERECT W/[place] L[place] [address] [facility], PICKLESIM SURG 5 LLC ER [facility] PATHOLOGY GROSS&HUGH ROSCOPIC EXAM ANESTHESI 43522 [facility] SPARROW JADEN A 5 ANESTH INTRAPERI OF THE TONEAL BLUE LOWER ABD W/LAPS NOS COLLECTIO 92601 ANTONIO ALVAREZ N VENOUS 5 [facility] BLOOD INC INC VENIPUNCT URE CULTURE 20848 ANTONIO ALVAREZ BACTERIAL 5 [facility] INC INC QUANTTATI VE COLONY COUNT URINE SMR PRIM 94477 ROSIBEL ROMAN SRC WET 5 JESSIE MEDLEY NFCT AGT SUSCEPTIB 79116 ANTONIO ALVAREZ LTY STDY 5 [facility] ANTIMICRB INC INC IAL MICRO/AGA R DILUTJ BLOOD 51365 ANTONIO ALVAREZ COUNT 5 [facility] COMPLETE INC INC AUTO&AUTO DIFRNTL WBC GONADOTRO 80510 ANTONIO ALVAREZ PIN 5 [facility] CHORIONIC INC INC QUALITATI VE URNLS DIP 76803 ANTONIO ALVAREZ 5 [facility] STICK/TAB INC [place] [address] [facility] TRANSVAGI 5 MEDICAL ARELY NAL IMAGING ASS URINLS 89357 ROSIBEL ROMAN DIP 5 JESSIE BOTELLO SHASTA STICK/TAB LET REAGNT NON-AUTO MICRSCPY APPL 34830 EMMIE SALEEM MODALITY 5 GAR 1/> AREAS CHIROPRAC TRACTION TIC CENTE MECHANICA L CHIROPRAC 50394 [facility] SALE[place] TIC 5 GAR MANIPLTV CHIROPRAC TX TIC CENTE EXTRASPIN AL 1/> REGION CHIROPRAC 44382 [facility] S[place] TIC 5 GAR MANIPULAT CHIROPRAC DOMINICK TX TIC CENTE SPINAL 1-[address] [place] [address] CYNCUATE SALEEM 1/> AREAS 5 GAR EACH 15 CHIROPRAC MIN T[place] [address] CYNJAREDANA HARPER 1/> AREAS 5 GAR EACH 15 CHIROPRAC MIN [place] [address] [place] HARPER 1/> AREAS 5 GAR EACH 15 CHIROPRAC MINUTES TIC CENTE MASSAGE CHIROPRAC 28425 CYNC[place] SALEEM TIC 5 GAR MANIPLTV CHIROPRAC TX TIC CENTE EXTRASPIN AL 1/> REGION CHIROPRAC 08632 CY[place] S[place] TIC 5 GAR MANIPULAT CHIROPRAC DOMINICK TX TIC CENTE SPINAL 1-2 REGIONS CHIROPRAC 02178 CYNC[place] S[place]EM TIC 5 GAR MANIPULAT CHIROPRAC DOMINICK TX TIC CENTE SPINAL 1-[address] [place] [address] CYNJAREDANA HARPER 1/> AREAS 5 GAR EACH 15 CHIROPRAC MIN [place] [address] [place] HARPER 1/> AREAS 5 GAR EACH 15 CHIROPRAC MINUTES TIC CENTE MASSAGE URNLS DIP 91849 ANTONIO BELTRAN 5 [facility] D[facility] LET RGNT NON-AUTO W/O MICRSCP COMPREHEN 14097 ANTONIO ALVAREZ SIVE 5 [facility] METABOLIC INC INC PANEL COLLECTIO 81606 ANTONIO ALVAREZ N VENOUS 5 [facility] BLOOD INC INC VENIPUNCT URE BLOOD 18740 ANTONIO ALVAREZ COUNT 5 [facility] COMPLETE INC INC AUTO&AUTO DIFRNTL WBC URNLS DIP 16054 ANTONIO ALVAREZ 5 [facility] STICK/TAB INC INC LET REAGENT AUTO MICROSCOP Y BLOOD 82457 ANTONIO ALVAREZ COUNT 5 [facility] COMPLETE INC INC AUTO&AUTO DIFRNTL WBC URNLS DIP 93121 ANTONIO ALVAREZ 5 [facility] STICK/TAB INC INC LET REAGENT AUTO MICROSCOP Y COMPREHEN 84157 ANTONIO ALVAREZ SIVE 5 [facility] [place] [address] ANTONIO ALVAREZ ABDOMEN & 5 [facility] PELVIS INC INC W/O CONTRAST MATERIAL COMPREHEN 99732 ANTONIO ALVAREZ SIVE 5 [facility] METABOLIC INC INC PANEL UNCLASSIF J3490 ANTONIO ALVAREZ IED DRUGS 5 [facility] INC INC BLOOD 79312 ANTONIO ALVAREZ COUNT 5 [facility] COMPLETE INC INC AUTO&[place] [address] ANTONIO ALVAREZ INFUSION 5 [facility] THERAPY/P INC INC ROPHYLAXI S /DX 1ST TO 1 HR IMMUNOASS 39958 ANTONIO ALVAREZ AY NFCT 5 [facility] AGT ANTB INC INC QUAL/SEMI ANGIE 1 STEP SMR PRIM 66993 ROSIBEL ROMAN SRC WET 5 JESSIE VEGAS [facility] NFCT AGT HGB 97403 ROSIBEL ROMAN QUANTITAT 5 JESSIE VEGAS DOMINICK TRANSCUTA NEOUS BLOOD 12584 ANTONIO ALVAREZ COUNT 5 [facility] [place] [address] ANTONIO ALVAREZ INFUSION 5 [facility] THERAPY INC INC PROPHYLAX IS/DX EA HOUR UNCLASSIF J3490 ANTONIO ALVAREZ IED DRUGS 5 [facility] INC INC DILATION 35226 ROSIBEL ROMAN & 5 JESSIE VEGAS CURETTAGE DX&/THER NONOBSTET JACQUI BLOOD 67517 ANTONIO ALVAREZ COUNT 5 [facility] HEMATOCRI INC INC T COLLECTIO 63174 ANTONIO ALVAREZ N VENOUS 5 [facility] BLOOD INC INC VENIPUNCT URE INJECTION J2405 ANTONIO ALVAREZ 5 [facility] ONDANSETR INC INC ON HCL [place] 1 [place] [address] [facility], [facility], SURG 5 [facility] PATHOLOGY GROSS&HUGH ROSCOPIC EXAM ANESTHESI 49449 [facility] VAGINAL 5 ANESTH LUCERO OF THE PROCEDURE BLUE W/BIOPSY NOS CULTURE 33492 ANTONIO ALVAREZ BACTERIAL 5 [facility] INC INC QUANTTATI VE COLONY COUNT URINE URINE 43291 ANTONIO ALVAREZ 5 [facility] TEST INC INC VISUAL COLOR CMPRSN METHS COLLECTIO 19729 ANTONIO ALVAREZ N VENOUS 5 [facility] BLOOD INC INC VENIPUNCT URE BLOOD 30867 ANTONIO ALVAREZ COUNT 5 [facility] COMPLETE INC INC AUTO&AUTO DIFRNTL WBC URNLS DIP 58007 ANTONIO ALVAREZ 5 [facility] STICK/TAB INC INC LET REAGENT AUTO MICROSCOP Y BLOOD 51927 ANTONIO ALVAREZ COUNT 5 [facility] COMPLETE INC INC AUTO&[place] [address] ANTONIO ALVAREZ TRANSVAGI 5 [facility] NAL INC INC COLLECTIO 30007 ANTONIO ALVAREZ N VENOUS 5 [facility] BLOOD INC INC VENIPUNCT URE COMPUTER- 47187 ANTONIO ALVAREZ AIDED 5 [facility] DETECTION INC INC SCREENING MAMMOGRAP HY SCREENING G0202 ANTONIO ALVAREZ 5 [facility] MAMMOGRAP INC INC HY MICHELE INCL CAD WHEN PERFORMD Encounters Encounter Start End Date Code Location Performer Type Date OFFICE 59347 [facility] STONE OUTPATIEN 7 7 PHYSICIAN T VISIT S GROUP 25 MINUTES OFFICE 84290 [facility] OUTPATIEN 6 6 PHYSICIAN T VISIT S GROUP 15 MINUTES OFFICE 87104 [facility] [place] OUTPATIEN 6 6 PHYSICIAN T VISIT S GROUP 15 MINUTES HOSPITAL ANTONIO - 6 6 [facility] OUTPATIEN INC T PERIODIC 73585 [facility] HARPEL PREVENTIV 6 6 PHYSICIAN SHASTA E MED EST S GROUP PATIENT 40-64YRS OFFICE 37652 [facility] [place] OUTPATIEN 6 6 PHYSICIAN EUG T VISIT S GROUP 15 MINUTES HOSPITAL ANTONIO - 6 6 [facility] OUTPATIEN INC T OFFICE 46780 [facility] [place] OUTPATIEN 6 6 PHYSICIAN T NEW 30 S GROUP MINUTES HOSPITAL ANTONIO - 6 6 [facility] OUTPATIEN INC T OFFICE 95381 [facility] [place] OUTPATIEN 6 6 PHYSICIAN EUG T VISIT S GROUP 15 MINUTES OFFICE 78705 [facility] [place] OUTPATIEN 6 6 PHYSICIAN T VISIT GROUP 25 MINUTES OFFICE 06899 [place] CANTRELL OUTPATIEN 6 6 AMA T VISIT CHIROPRAC 15 TIC CENTE MINUTES OFFICE 75123 [facility] GAGE OUTPATIEN 6 6 PHYSICIAN T VISIT GROUP 15 MINUTES EMERGENCY 64479 [place] VILLALOBOS [facility] 6 6 PHYSICIAN DEPARTMEN S, PLLC T VISIT MODERATE SEVERITY HOSPITAL ANTONIO - 6 6 [facility] OUTPATIEN INC T OFFICE 44688 [place] CANTRELL OUTPATIEN 6 6 AMA T VISIT CHIROPRAC 15 TIC CENTE MINUTES EMERGENCY 92491 ANTONIO 6 6 [facility] DEPARTMEN INC T VISIT LOW/MODER SEVERITY OFFICE 41375 ANTONIO ALMONTE OUTPATIEN 6 6 [facility] 25 MINUTES OFFICE 58632 [facility] SHANIKA OUTPATIEN 6 6 [facility] T VISIT MEDICAL 15 GROUP MINUTES HOSPITAL ANTONIO - 6 6 [facility] OUTPATIEN INC T OFFICE 46750 [facility] [place] OUTPATIEN 6 6 PHYSICIAN STONE T VISIT S GROUP DOMINGO ALANIZ 25 MINUTES OFFICE 45106 ROSIBEL ROMAN OUTPATIEN 6 6 JESSIE BOTELLO SHASTA T VISIT 15 MINUTES OFFICE 91462 [facility] JEFFRY OUTPATIEN 6 6 PHYSICIAN HUGH T VISIT S GROUP 15 MINUTES OFFICE 56787 [facility] JEFFRY OUTPATIEN 6 6 PHYSICIAN HUGH T VISIT S GROUP 15 MINUTES OFFICE 32897 ANTONIO EASLEY OUTPATIEN 6 6 [facility] VISIT [facility] 15 MINUTES HOSPITAL ANTONIO - 5 6 [facility] INPATIENT INC OFFICE 19929 ROSIBEL ROMAN OUTPATIEN 5 5 JESSIE BOTELLO SHASTA T VISIT 15 MINUTES HOSPITAL ANTONIO - 5 5 [facility] OUTPATIEN INC T [facility]OSPITAL ANTONIO - 5 5 [facility] OUTPATIEN INC T OFFICE 91801 ROSIBEL ROMAN OUTPATIEN 5 5 JESSIE BOTELLO SHASTA T VISIT 25 MINUTES OFFICE 61557 EMMIE SALEEM OUTPATIEN 5 5 [facility] T VISIT CHIROPRAC 10 TIC CENTE MINUTES OFFICE 94465 ANTONIO BELTRAN OUTPATIEN 5 5 [facility] T VISIT [facility] 15 MINUTES HOSPITAL ANTONIO - 5 5 [facility] OUTPATIEN INC T EMERGENCY 10026 [place] JAMISON 5 5 PHYSICIAN HUGH DEPARTMEN S, PLLC T VISIT HIGH/URGE NT SEVERITY HOSPITAL ANTONIO - 5 5 [facility] OUTPATIEN INC T EMERGENCY 28474 ANTONIO 5 5 [facility] DEPARTMEN INC T VISIT MODERATE SEVERITY [facility]OSPITAL ANTONIO - 5 5 [facility] OUTPATIEN INC T EMERGENCY 09419 ANTONIO 5 5 [facility] T VISIT HIGH/URGE NT SEVERITY EMERGENCY 45249 ANTONIO Apodaca 5 5 [facility] T VISIT P MODERATE SEVERITY OFFICE 01228 ROSIBEL ROMAN OUTPATIEN 5 5 JESSIE VEGAS T VISIT 15 MINUTES HOSPITAL ANTONIO - 5 5 [facility] OUTPATIEN INC T HOSPITAL ANTONIO - 5 5 [facility] OUTPATIEN INC T OFFICE 97379 ROSIBEL ROMAN OUTPATIEN 5 5 JESSIE VEGAS T VISIT 15 MINUTES OFFICE 27330 ROSIBEL ROMAN OUTPATIEN 5 5 JESSIE VEGAS T VISIT 15 MINUTES HOSPITAL ANTONIO - 5 5 [facility] OUTPATIEN INC T OFFICE 59103 ROSIBEL ROMAN OUTPATIEN 5 5 JESSIE VEGAS T VISIT 15 MINUTES HOSPITAL ANTONIO - 5 5 [facility] OUTPATIEN INC T Emergency KAMILLE Jamison MD (ER) 3 05:26 3 05:27 [facility]
--- OUTSIDE RECORDS SUMMARY | 2016-10-10 20:13 | External Medical Summary Rpt ---
Author Author , Organization [employer] Address Unknown Phone Unavailable Care Team Providers Care Athletic Scout Name Role Phone [facility] Unavailable Unavailable MEDICAL GROUP, [facility] HERNANDEZ TER, HERNANDEZ TER Unavailable [...] ROSIBEL CAPELLANPEL SHASTA, HARPEL Unavailable Unavailable SHASTA [facility] Unavailable Unavailable INC, [facility] Unavailable Unavailable [facility], [facility] Unavailable Unavailable [facility]PITAL P, [facility] P [facility], Unavailable Unavailable [facility] CANTRELL AMA, CANTRELL Unavailable Unavailable [facility]MA [facility], [facility] Janes Jamison MD, Unavailable Unavailable Janes LOPEZ, Unavailable Unavailable EVENS LOPEZ, Unavailable Unavailable EVENS RAMÍREZ, Unavailable Unavailable HARPER RAMÍREZ [facility] Un[facility], [facility] RENEE PRA, RENEE PRA Unavailable Unavailable [facility] SANTOSH, Unavailable Unavailable [facility] SHANIKA HEN, SHANIKA Unavailable Unavailable HEN [place], C[place] Unavailable Unavailable SADEK MOH, SADEK MOH Unavailable Unavailable SCHULSTAD CAM, Unavailable Unavailable SCHULSTAD CAM MAURILIO, STONE Unavailable Unavailable SAVANNA BARKER, SAVANNA Unavailable Unavailable LUCERO Purpose Continuity of Care Document - 12-11-2012 through 2016 Problems Code Diagnosis DOS Provider Status [id number] PAIN IN 07-10-2016 [place] RIGHT CHIROPRACTI SHOULDER [...] SOMATIC CHIROPRACTI DYSFUNCTION C CENTE LOWER EXTREMITY [id number] ACUTE 06-29-2016 [facility] SUPPURATIVE PHYSICIANS OM W/O GROUP RUPT EAR DRUM RT EAR R109 UNSPECIFIED 06-29-2016 [facility] ABDOMINAL PHYSICIANS PAIN GROUP J40 BRONCHITIS 05-25-2016 [facility] NOT PHYSICIANS SPECIFIED GROUP ACUTE OR CHRONIC J0100 ACUTE 05-22-2016 [facility] MAXILLARY PHYSICIANS SINUSITIS GROUP UNSPECIFIED Z1231 ENCOUNTER 05-01-2016 [place] SCRE[facility]AMMO MALIG IMAGING ASS NEOPLASM BREAST N951 MENOPAUSAL 04-25-2016 [facility] AND FEMALE PHYSICIANS CLIMACTERIC GROUP STATES V04248 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[facility] LOG CUTTER EXAM PHYSICIANS GENERAL RTN GROUP W/O ABNORMAL FIND Z1212 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[facility] SCREENING PHYSICIANS MALIGNANT GROUP NEOPLASM RECTUM J0390 ACUTE 04-13-2016 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 STYLOID PHYSICIANS TENOSYNOVIT GROUP IS DE QUERVAIN G72694 GANGLION 03-15-2016 [facility] RIGHT WRIST PHYSICIANS GROUP S48127 GANGLION 03-15-2016 [facility] LEFT WRIST PHYSICIANS GROUP J029 ACUTE 03-07-2016 [facility] PHARYNGITIS PHYSICIANS GROUP UNSPECIFIED C31588 PAIN IN 03-07-2016 [place] LEFT WRIST [facility] P56808 GANGLION 03-07-2016 [facility] RIGHT HAND PHYSICIANS GROUP O39954 GANGLION 03-07-2016 [facility] LEFT HAND PHYSICIANS GROUP O15049 PAIN IN 03-07-2016 [facility] M9903 SEGMENTAL & 01-21-2016 [place] SOMATIC CHIROPRACTI DYSFUNCTION C CENTE OF LUMBAR REGION M545 LOW BACK 01-11-2016 [place] PAIN CHIROPRACTI C CENTE I10 ESSENTIAL 01-04-[address] [facility] HYPERTENSIO INC N K1120 SIALOADENIT 01-04-2016 [facility], UNSPECIFIED PLLC K1121 ACUTE 01-04-2016 [facility] IS INC J329 CHRONIC 12-27-2015 [facility] AC[facility] 11-22-2015 [facility] S MEDICAL UNSPECIFIED GROUP H6980 OTHER SPEC 11-09-2015 [facility] DISORDERS PHYSICIANS EUSTACHIAN GROUP TUBE UNS EAR [id number] UNSPECIFIED 11-09-2015 [facility] ASTHMA PHYSICIANS UNCOMPLICAT GROUP ED R5383 OTHER 11-09-2015 [facility] FATIGUE PHYSICIANS GROUP Z840 FAMILY 11-09-2015 [facility] HISTORY PHYSICIANS DISEASES GROUP SKIN & SUBQ TISSUE Z0100 ENCOUNTER 11-04-2015 [facility] EXAM EYES & GRE VISION W/O ABNORMAL FIND H6690 OTITIS 09-22-2015 [facility] MEDIA PHYSICIANS UNSPECIFIED GROUP UNSPECIFIED EAR J040 ACUTE 09-22-2015 [facility] LARYNGITIS PHYSICIANS GROUP [id number] OTHER ACUTE 09-12-2015 [facility] DOMINICK OM RECURRENT BILAT J0190 ACUTE 09-12-2015 [facility] J209 ACUTE 09-12-2015 [facility] D259 LEIOMYOMA 06-03-2015 [facility] OF UTERUS LLC UNSPECIFIED K660 PERITONEAL 06-03-2015 [facility]IONS [facility] POSTPROC INC POSTINFECTI ON N736 FEMALE 06-03-2015 [facility] PELVIC PHYSICIANS PERITONEAL GROUP ADHESIONS POSTINFECTI VE N800 ENDOMETRIOS 06-03-2015 [facility] IS OF LLC UTERUS N831 CORPUS 06-03-2015 [facility] LUTEUM CYST LLC N8320 UNSPECIFIED 06-03-2015 [facility] OVARIAN PHYSICIANS CYSTS GROUP N856 INTRAUTERIN 06-03-2015 [facility] E SYNECHIAE LLC N938 OTHER SPEC 06-03-2015 [facility] ABNORMAL PHYSICIANS UTERINE & GROUP VAGINAL BLEEDING R102 PELVIC AND 06-03-2015 [facility] PERINEAL [facility] PAIN INC B9689 OTH SPEC 05-24-2015 ROSIBEL Ceballos BACTERIAL JESSIE BOTELLO AGNT CAUSE DZ CLASSIFIED ELSW N760 ACUTE 05-24-2015 ROSIBEL ROMAN MD L36682 ENCOUNTER 05-24-2015 [facility] FOR OTHER [facility] PREPROCEDUR INC AL EXAMINATION N852 HYPERTROPHY 05-10-2015 [place] [facility] N9489 OTH COND 05-04-2015 [facility] Ceballos ASSOC W/EB ROMAN MD GEN ORGN & MENSTRUAL CYCL 4019 UNSPECIFIED 02-03-2015 [facility] N 31147 ASTHMA, 02-03-2015 [facility] UNSPECIFIED STATUS 5990 URINARY 02-03-2015 [facility] SITE NOT SPECIFIED 67956 ABDOMINAL 01-05-2015 [facility] PAIN OTHER [facility] SPECIFIED INC SITE 34459 OTHER 11-03-2014 [place] SPECIFIED MEDICAL DISORDER OF IMAGING ASS KIDNEY AND URETER 68950 ABDOMINAL 11-03-2014 [facility] PAIN RIGHT [facility] UPPER INC QUADRANT V1301 PERSONAL 11-03-2014 [facility] HISTORY OF [facility] URINARY INC CALCULI 462 ACUTE 10-07-2014 [facility] PHARYNGITIS [facility] P 26496 ACUTE 10-07-2014 [facility] MENTION OF OBSTRUCTIO 41514 UNSPECIFIED 09-14-2014 ROSIBEL ROMAN MD AND VULVOVAGINI TIS 6262 EXCESSIVE 09-14-2014 ROSIBEL Ceabllos OR MELANY ROMAN MD MENSTRUATIO N 0794 [...] [facility] MAMMOGRAM INC 401.9 401.9 12-11-2012 [place] HYPERTENSIO [facility] 493.90 493.90 12-11-2012 [facility] K11.21 ACUTE SIALOADENIT IS N73.6 FEMALE [...] NO 00 2- 7- 00 01 ve TN 52 20 20 16 AI [place] 00 [...] MG #3 TA 93 BL 8 ET TN 59 01 02 10 5 00 RI [...] NO 00 5- 0- 00 01 ve TN 52 20 20 16 AI [place] 00 [...] MG #3 93 TA 8 BL ET TN 00 12 01 20 10 00 RI Ac OM 60 -2 -2 0. 00 TE ti ET 31 2- 0- 00 01 ve RAMIRES 58 20 20 0 16 AI ZI 65 16 17 36 D NE 4 14 PH -D AR M MA SY CY RU P #3 93 8 TN 00 12 01 10 5 00 RI [...] NO 00 5- 3- 00 01 ve TN 52 20 20 16 AI [place] 00 [...] Procedure DOS Code Location Performer Comment CHIROPRAC 63002 [place] TUCKER TIC 7 MANIPULAT CHIROPRAC DOMINICK TX TIC CENTE SPINAL 1-2 REGIONS MANUAL 90664 [place] T[facility]ER THERAPY 7 TQS 1/> CH[facility]OP[facility]AC REGIONS TIC CENTE EACH 15 MINUTES THERAPEUT 12934 [facility] STONE IC 7 PHYSICIAN PROPHYLAC S GROUP TIC/DX INJECTION SUBQ/IM URNLS DIP 47287 [facility] 7 PHYSICIAN PHYSICIAN STICK/TAB S GROUP S GROUP LET RGNT NON-AUTO W/O MICRSCP INJECTION J0696 [facility] STONE 7 PHYSICIAN CEFTRIAXO S GROUP NE SODIUM PER 250 MG INJECTION J0696 [facility] STONE 6 PHYSICIAN CEFTRIAXO S GROUP NE SODIUM PER 250 MG THERAPEUT 02599 [facility] STONE IC 6 PHYSICIAN PROPHYLAC S GROUP TIC/DX INJECTION SUBQ/IM INJECTION J0696 [facility] [place] 6 PHYSICIAN CEFTRIAXO S GROUP NE SODIUM PER 250 MG THERAPEUT 44639 [facility] [place] IC 6 PHYSICIAN PROPHYLAC S GROUP TIC/DX INJECTION SUBQ/IM SCREENING G0202 [facility] 6 [facility] MAMMOGRAP INC INC HY MICHELE INCL CAD WHEN PERFORMD COMPUTER- 39019 [facility] AL[facility] AIDED 6 [facility] DETECTION INC INC SCREENING MAMMOGRAP HY IADNA NOS 54929 BIO BIO 6 REFERNCE REFERNCE AMPLIFIED LABORATOR LABORATOR PROBE TQ IES IES EACH ORGANISM IADNA 51497 BIO BIO NEISSERIA 6 REFERNCE REFERNCE LABORATOR LABORATOR GONORRHOE IES IES AE AMPLIFIED PROBE TQ CYTP C/V 84086 BIO BIO AUTO THIN 6 REFERNCE REFERNCE LYR LABORATOR LABORATOR PREPJ SCR IES IES MNL RESCR PHYS IADNA 53510 [facility] NEISSERIA 6 PHYSICIAN PHYSICIAN S GROUP S GROUP GONORRHOE AE DIRECT PROBE TQ IADNA 18769 BIO BIO CHLAMYDIA 6 REFERNCE REFERNCE LABORATOR LABORATOR TRACHOMAT IES IES IS AMPLIFIED PROBE TQ URINLS 00864 [facility] HARPE[place] DIP 6 PHYSICIAN SHASTA STICK/TAB S GROUP LET REAGNT NON-AUTO MICRSCPY CULTURE 88560 [facility] HAR[place]L CHLAMYDIA 6 PHYSICIAN SHASTA ANY S GROUP SOURCE IADNA 03637 BIO BIO TRICHOMON 6 REFERNCE REFERNCE LABORATOR LABORATOR VAGINALIS IES IES AMPLIFIED PROBE TECH INJECTION J0696 [facility] [place] 6 PHYSICIAN EUG CEFTRIAXO S GROUP NE SODIUM PER 250 MG THERAPEUT 84142 [facility] [place] IC 6 PHYSICIAN EUG PROPHYLAC S GROUP TIC/DX INJECTION SUBQ/IM MANUAL 18183 [place] CANTRELL THERAPY 6 AMA TQS 1/> CHIROPRAC REGIONS TIC CENTE EACH 15 MINUTES CHIROPRAC 47795 [place] CANTRELL TIC 6 AMA MANIPULAT CHIROPRAC DOMINICK TX TIC CENTE SPINAL 3-4 REGIONS CHIROPRAC 84401 [place] CANTRELL TIC 6 AMA MANIPLTV CHIROPRAC TX TIC CENTE EXTRASPIN AL 1/> REGION MRI UPPER 30793 [facility] 6 [facility] EXTREMITY INC INC OTH THAN JT W/O CONTR MATRL MANUAL 17598 [place] CANTRELL THERAPY 6 AMA TQS 1/> [facility] REGIONS TIC CENTE EACH 15 MINUTES APPL 25325 [place] CANTRELL MODALITY 6 AMA 1/> AREAS CHIROPRAC TIC CENTE ULTRASOUN D EA 15 MIN CHIROPRAC 67415 [place] CANTRELL TIC 6 AMA MANIPULAT CHIROPRAC DOMINICK TX TIC CENTE SPINAL 3-4 REGIONS APPL 09183 [place] CANTRELL MODALITY 6 AMA 1/> AREAS CHIROPRAC ELEC TIC CENTE STIMJ UNATTENDE D APPL 61575 [place] CANTRELL MODALITY 6 AMA 1/> AREAS CHIROPRAC ELEC TIC CENTE STIMJ UNATTENDE D RADEX 43679 [facility] HAND 2 6 [facility] VIEWS INC INC MANUAL 48546 [place] CANTRELL THERAPY 6 AMA TQS 1/> CHIROPRAC REGIONS TIC CENTE EACH 15 MINUTES APPL 56442 [place] CANTRELL MODALITY 6 AMA 1/> AREAS CHIROPRAC TIC CENTE ULTRASOUN D EA 15 MIN CHIROPRAC 59266 [place] CANTRELL TIC 6 AMA MANIPULAT CHIROPRAC DOMINICK TX TIC CENTE SPINAL 3-4 REGIONS RADEX 34328 [place] MAZARIEGOS ALL WRIST 2 6 MEDICAL VIEWS IMAGING ASS THERAPEUT 94443 [facility] IC 6 PHYSICIAN PHYSICIAN PROPHYLAC S GROUP S GROUP TIC/DX INJECTION SUBQ/IM APPL 77650 [place] CANTRELL MODALITY 6 AMA 1/> AREAS CHIROPRAC TIC CENTE ULTRASOUN D EA 15 MIN CHIROPRAC 87098 [place] CANTRELL TIC 6 AMA MANIPULAT CHIROPRAC DOMINICK TX TIC CENTE SPINAL 3-4 REGIONS MANUAL 39448 [place] CANTRELL THERAPY 6 AMA TQS 1/> CHIROPRAC REGIONS TIC CENTE EACH 15 MINUTES APPL 34065 [place] CANTRELL MODALITY 6 AMA 1/> AREAS CHIROPRAC ELEC TIC CENTE STIMJ UNATTENDE D APPL 29589 [place] CANTRELL MODALITY 6 AMA 1/> AREAS CHIROPRAC ELEC TIC CENTE STIMJ UNATTENDE D MANUAL 83804 [place] CANTRELL THERAPY 6 AMA TQS 1/> CHIROPRAC REGIONS TIC CENTE EACH 15 MINUTES APPL 35430 [place] CANTRELL MODALITY 6 AMA 1/> AREAS CHIROPRAC TIC CENTE ULTRASOUN D EA 15 MIN CHIROPRAC 34785 [place] CANTRELL TIC 6 AMA MANIPULAT CHIROPRAC DOMINICK TX TIC CENTE SPINAL 3-4 REGIONS APPL 56243 [place] CANTRELL MODALITY 6 AMA 1/> AREAS CHIROPRAC ELEC TIC CENTE STIMJ UNATTENDE D MANUAL 49420 [place] CANTRELL THERAPY 6 AMA TQS 1/> CHIROPRAC REGIONS TIC CENTE EACH 15 MINUTES APPL 72712 [place] CANTRELL MODALITY 6 AMA 1/> AREAS CHIROPRAC TIC CENTE ULTRASOUN D EA 15 MIN CHIROPRAC 93912 [place] CANTRELL TIC 6 AMA MANIPULAT CHIROPRAC DOMINICK TX TIC CENTE SPINAL 3-4 REGIONS MANUAL 11999 [place] CANTRELL THERAPY 6 AMA TQS 1/> CHIROPRAC REGIONS TIC CENTE EACH 15 MINUTES APPL 09201 [place] CANTRELL MODALITY 6 AMA 1/> AREAS CHIROPRAC TIC CENTE ULTRASOUN D EA 15 MIN CHIROPRAC 06987 [place] CANTRELL TIC 6 AMA MANIPULAT CHIROPRAC DOMINICK TX TIC CENTE SPINAL 3-4 REGIONS APPL 61107 [place] CANTRELL MODALITY 6 AMA 1/> AREAS CHIROPRAC ELEC TIC CENTE STIMJ UNATTENDE D APPL 77610 [place] CANTRELL MODALITY 6 AMA 1/> AREAS CHIROPRAC ELEC TIC CENTE STIMJ UNATTENDE D MANUAL 59712 [place] CANTRELL THERAPY 6 AMA TQS 1/> CHIROPRAC REGIONS TIC CENTE EACH 15 MINUTES APPL 04721 [place] CANTRELL MODALITY 6 AMA 1/> AREAS CHIROPRAC TIC CENTE ULTRASOUN D EA 15 MIN CHIROPRAC 29769 [place] CANTRELL TIC 6 AMA MANIPULAT CHIROPRAC DOMINICK TX TIC CENTE SPINAL 3-4 REGIONS CHIROPRAC 25446 [place] CANTRELL TIC 6 AMA MANIPLTV CHIROPRAC TX TIC CENTE EXTRASPIN AL 1/> REGION THERAPEUT 40280 [place] CANTRELL IC PX 1/> 6 AMA AREAS CHIROPRAC EACH 15 TIC CENTE MIN EXERCISES CHIROPRAC 02005 [place] CANTRELL TIC 6 AMA MANIPULAT CHIROPRAC DOMINICK TX TIC CENTE SPINAL 3-4 REGIONS APPL 61169 [place] CANTRELL MODALITY 6 AMA 1/> AREAS CHIROPRAC ELEC TIC CENTE STIMJ UNATTENDE D APPL 56648 [place] CANTRELL MODALITY 6 AMA 1/> AREAS CHIROPRAC TRACTION TIC CENTE MECHANICA L CHIROPRAC 40214 [place] CANTRELL TIC 6 AMA MANIPLTV CHIROPRAC TX TIC CENTE EXTRASPIN AL 1/> REGION MANUAL 40468 [place] CANTRELL THERAPY 6 AMA TQS 1/> CHIROPRAC REGIONS TIC CENTE EACH 15 MINUTES APPL 82035 [place] CANTRELL MODALITY 6 AMA 1/> AREAS CHIROPRAC TIC CENTE ULTRASOUN D EA 15 MIN MANUAL 79079 [place] CANTRELL THERAPY 6 AMA TQS 1/> CHIROPRAC REGIONS TIC CENTE EACH 15 MINUTES APPL 10428 [place] CANTRELL MODALITY 6 AMA 1/> AREAS CHIROPRAC TIC CENTE ULTRASOUN D EA 15 MIN CHIROPRAC 06474 [place] CANTRELL TIC 6 AMA MANIPULAT CHIROPRAC DOMINICK TX TIC CENTE SPINAL 3-4 REGIONS APPL 07167 [place] CANTRELL MODALITY 6 AMA 1/> AREAS CHIROPRAC ELEC TIC CENTE STIMJ UNATTENDE D APPL 64269 [place] CANTRELL MODALITY 6 AMA 1/> AREAS CHIROPRAC TRACTION TIC CENTE MECHANICA L CHIROPRAC 19426 [place] CANTRELL TIC 6 AMA MANIPLTV CHIROPRAC TX TIC CENTE EXTRASPIN AL 1/> REGION APPL 41286 [place] CANTRELL MODALITY 6 AMA 1/> AREAS CHIROPRAC ELEC TIC CENTE STIMJ UNATTENDE D APPL 56811 [place] CANTRELL MODALITY 6 AMA 1/> AREAS CHIROPRAC TRACTION TIC CENTE MECHANICA L CHIROPRAC 25999 [place] CANTRELL TIC 6 AMA MANIPLTV CHIROPRAC TX TIC CENTE EXTRASPIN AL 1/> REGION MANUAL 35671 [place] CANTRELL THERAPY 6 AMA TQS 1/> CHIROPRAC REGIONS TIC CENTE EACH 15 MINUTES APPL 26354 [place] CANTRELL MODALITY 6 AMA 1/> AREAS CHIROPRAC TIC CENTE ULTRASOUN D EA 15 MIN CHIROPRAC 79201 [place] CANTRELL TIC 6 AMA MANIPULAT CHIROPRAC DOMINICK TX TIC CENTE SPINAL 3-4 REGIONS APPL 73059 [place] CANTRELL MODALITY 6 AMA 1/> AREAS CHIROPRAC ELEC TIC CENTE STIMJ UNATTENDE D APPL 47091 [place] CANTRELL MODALITY 6 AMA 1/> AREAS CHIROPRAC TRACTION TIC CENTE MECHANICA L CHIROPRAC 68351 [place] CANTRELL TIC 6 AMA MANIPLTV CHIROPRAC TX TIC CENTE EXTRASPIN AL 1/> REGION MANUAL 75766 [place] CANTRELL THERAPY 6 AMA TQS 1/> CHIROPRAC REGIONS TIC CENTE EACH 15 MINUTES APPL 81874 [place] CANTRELL MODALITY 6 AMA 1/> AREAS CHIROPRAC TIC CENTE ULTRASOUN D EA 15 MIN CHIROPRAC 41061 [place] CANTRELL TIC 6 AMA MANIPULAT CHIROPRAC DOMINICK TX TIC CENTE SPINAL 3-4 REGIONS APPL 38158 [place] CANTRELL MODALITY 6 AMA 1/> AREAS CHIROPRAC ELEC TIC CENTE STIMJ UNATTENDE D APPL 28794 [place] CANTRELL MODALITY 6 AMA 1/> AREAS CHIROPRAC TRACTION TIC CENTE MECHANICA L RADEX 79924 [place] CANTRELL SPINE 6 AMA LUMBOSACR CHIROPRAC AL 2/3 TIC CENTE VIEWS CHIROPRAC 40623 [place] CANTRELL TIC 6 AMA MANIPLTV CHIROPRAC TX TIC CENTE EXTRASPIN AL 1/> REGION MANUAL 75707 [place] CANTRELL THERAPY 6 AMA TQS 1/> CHIROPRAC REGIONS TIC CENTE EACH 15 MINUTES APPL 38525 [place] CANTRELL MODALITY 6 AMA 1/> AREAS CHIROPRAC TIC CENTE ULTRASOUN D EA 15 MIN CHIROPRAC 52808 [place] CANTRELL TIC 6 AMA MANIPULAT CHIROPRAC DOMINICK TX TIC CENTE SPINAL 3-4 REGIONS CHIROPRAC 45582 [place] CANTRELL TIC 6 AMA MANIPULAT CHIROPRAC DOMINICK TX TIC CENTE SPINAL 3-4 REGIONS APPL 75275 [place] CANTRELL MODALITY 6 AMA 1/> AREAS CHIROPRAC TIC CENTE ULTRASOUN D EA 15 MIN MANUAL 85475 [place] CANTRELL THERAPY 6 AMA TQS 1/> CHIROPRAC REGIONS TIC CENTE EACH 15 MINUTES CHIROPRAC 47723 [place] CANTRELL TIC 6 AMA MANIPLTV CHIROPRAC TX TIC CENTE EXTRASPIN AL 1/> REGION APPL 37893 [place] CANTRELL MODALITY 6 AMA 1/> AREAS CHIROPRAC TRACTION TIC CENTE MECHANICA L APPL 04308 [place] CANTRELL MODALITY 6 AMA 1/> AREAS CHIROPRAC ELEC TIC CENTE STIMJ UNATTENDE D APPL 57103 [place] CANTRELL MODALITY 6 AMA 1/> AREAS CHIROPRAC ELEC TIC CENTE STIMJ UNATTENDE D APPL 02241 [place] CANTRELL MODALITY 6 AMA 1/> AREAS CHIROPRAC TRACTION TIC CENTE MECHANICA L CHIROPRAC 63555 [place] CANT[place]LL TIC 6 AMA MANIPLTV CHIROPRAC TX TIC CENTE EXTRASPIN AL 1/> REGION MANUAL 75806 [place] CANTRELL THERAPY 6 AMA TQS 1/> CHIROPRAC REGIONS TIC CENTE EACH 15 MINUTES APPL 10033 [place] CANTRELL MODALITY 6 AMA 1/> AREAS CHIROPRAC TIC CENTE ULTRASOUN D EA 15 MIN CHIROPRAC 98864 [place] CANTRELL TIC 6 AMA MANIPULAT CHIROPRAC DOMINICK TX TIC CENTE SPINAL 3-4 REGIONS APPL 16554 [place] CANTRELL MODALITY 6 AMA 1/> AREAS CHIROPRAC ELEC TIC CENTE STIMJ UNATTENDE D APPL 02177 [place] CANTRELL MODALITY 6 AMA 1/> AREAS CHIROPRAC TRACTION TIC CENTE MECHANICA L CHIROPRAC 64645 [place] CANTRELL TIC 6 AMA MANIPLTV CHIROPRAC TX TIC CENTE EXTRASPIN AL 1/> REGION MANUAL 20414 [place] CANTRELL THERAPY 6 AMA TQS 1/> CHIROPRAC REGIONS TIC CENTE EACH 15 MINUTES CHIROPRAC 98414 [place] CANTRELL TIC 6 AMA MANIPULAT CHIROPRAC DOMINICK TX TIC CENTE SPINAL 3-4 REGIONS MANUAL 45801 [place] CANTRELL THERAPY 6 AMA TQS 1/> CHIROPRAC REGIONS TIC CENTE EACH 15 MINUTES CHIROPRAC 87966 [place] CANTRELL TIC 6 AMA MANIPULAT CHIROPRAC DOMINICK TX T[place] CENT[place] SPINAL 3-4 REGIONS APPL 65857 [place] MODALITY 6 AMA 1/> AREAS CHIROPRAC TRACTION TIC CENTE MECHANICA L CHIROPRAC 66119 [place] TIC 6 AMA MANIPLTV CHIROPRAC TX TIC CENTE EXTRASPIN AL 1/> REGION APPL 32466 [place] MODALITY 6 AMA 1/> AREAS CHIROPRAC ELEC TIC CENTE STIMJ UNATTENDE D APPL 02897 [place] MODALITY 6 1/> AREAS CHIROPRAC CHIROPRAC TRACTION TIC CENTE TIC CENTE MECHANICA L CHIROPRAC 31626 [place] TIC 6 AMA MANIPLTV CHIROPRAC TX TIC CENTE EXTRASPIN AL 1/> REGION THERAPEUT 89883 [place] IC PX 1/> 6 AMA AREAS CHIROPRAC EACH 15 TIC CENTE MIN EXERCISES MANUAL 06463 [place] THERAPY 6 AMA TQS 1/> CHIROPRAC REGIONS TIC CENTE EACH 15 MINUTES APPL 84235 [place] MODALITY 6 AMA 1/> AREAS CHIROPRAC TIC CENTE ULTRASOUN D EA 15 MIN [facility]IROPRAC 86036 [place] TIC 6 AMA MANIPULAT CHIROPRAC [place] T[place] CENT[place] SPINAL 3-4 REGIONS CHIROPRAC 55541 [place] TIC 6 AMA MANIPULAT CHIROPRAC [place] TIC CENT[place] SPINAL 3-4 REGIONS MANUAL 20180 [place] THERAPY 6 AMA TQS 1/> CHIROPRAC REGIONS TIC CENTE EACH 15 MINUTES APPL 04161 [place] MODALITY 6 AMA 1/> AREAS CHIROPRAC TIC CENTE ULTRASOUN D EA 15 MIN APPL 59386 [place] MODALITY 6 1/> AREAS CHIROPRAC CHIROPRAC ELEC TIC CENTE TIC CENTE STIMJ UNATTENDE D APPL 92649 [place] MODALITY 6 AMA 1/> AREAS CHIROPRAC TRACTION TIC CENTE MECHANICA L CHIROPRAC 27779 [place] TIC 6 AMA MANIPLTV CHIROPRAC TX TIC CENTE EXTRASPIN AL 1/> REGION APPL 91547 [place] MODALITY 6 AMA 1/> AREAS CHIROPRAC ELEC TIC CENTE STIMJ UNATTENDE D APPL 58585 [place] MODALITY 6 1/> AREAS CHIROPRAC CHIROPRAC TRACTION TIC CENTE TIC CENTE MECHANICA L CHIROPRAC 49899 [place] TIC 6 AMA MANIPLTV CHIROPRAC TX TIC CENTE EXTRASPIN AL 1/> REGION MANUAL 77774 [place] THERAPY 6 AMA TQS 1/> CHIROPRAC REGIONS TIC CENTE EACH 15 MINUTES APPL 04087 [place] MODALITY 6 AMA 1/> AREAS CHIROPRAC TIC CENTE ULTRASOUN D EA 15 MIN CHIROPRAC 55496 [place] TIC 6 AMA MANIPULAT CHIROPRAC [place] TIC CENTE SPINAL 3-4 REGIONS MANUAL 46619 [place] THERAPY 6 AMA TQS 1/> CHIROPRAC REGIONS TIC CENTE EACH 15 MINUTES APPL 11367 [place] MODALITY 6 1/> AREAS CHIROPRAC CHIROPRAC TIC CENTE TIC CENTE ULTRASOUN D EA 15 MIN CHIROPRAC 67146 [place] TIC 6 AMA MANIPULAT CHIROPRAC [place] TIC CENTE SPINAL 3-4 REGIONS APPL 95108 [place] MODALITY 6 AMA 1/> AREAS CHIROPRAC ELEC TIC CENTE STIMJ UNATTENDE D APPL 83785 [place] MODALITY 6 AMA 1/> AREAS CHIROPRAC TRACTION TIC CENTE MECHANICA L CHIROPRAC 23324 JOSÉTHITYSHAWN BURDICKEL PRA TIC 6 MANIPLTV CHIROPRAC TX TIC CENTE EXTRASPIN AL 1/> REGION APPL 37597 [place] MODALITY 6 AMA 1/> AREAS CHIROPRAC ELEC TIC CENTE STIMJ UNATTENDE D APPL 06289 [place] MODALITY 6 1/> AREAS CHIROPRAC CHIROPRAC TRACTION TIC CENTE TIC CENTE MECHANICA L CHIROPRAC 24632 [place] TIC 6 AMA MANIPLTV CHIROPRAC TX TIC CENTE EXTRASPIN AL 1/> REGION MANUAL 41781 [place] THERAPY 6 AMA TQS 1/> CHIROPRAC REGIONS TIC CENTE EACH 15 MINUTES CHIROPRAC 28305 [place] TIC 6 AMA MANIPULAT CHIROPRAC DOM[place] TIC CENTE SPINAL 3-4 REGIONS MANUAL 36876 [place] THERAPY 6 AMA TQS 1/> CHIROPRAC REGIONS TIC CENTE EACH 15 MINUTES CHIROPRAC 10817 [place] TIC 6 AMA MANIPULAT CHIROPRAC [place] TIC CENTE SPINAL 3-4 REGIONS APPL 76773 [place] MODALITY 6 AMA 1/> AREAS CHIROPRAC ELEC TIC CENTE STIMJ UNATTENDE D APPL 13835 [place] MODALITY 6 1/> AREAS CHIROPRAC CHIROPRAC TRACTION TIC CENTE TIC CENTE MECHANICA L CHIROPRAC 71674 [place] TIC 6 AMA MANIPLTV CHIROPRAC TX TIC CENTE EXTRASPIN AL 1/> REGION APPL 29428 [place] MODALITY 6 AMA 1/> AREAS CHIROPRAC ELEC TIC CENTE STIMJ UNATTENDE D APPL 75213 [place] MODALITY 6 AMA 1/> AREAS CHIROPRAC TRACTION TIC CENTE MECHANICA L CHIROPRAC 15043 [place] TIC 6 AMA MANIPLTV CHIROPRAC TX TIC CENTE EXTRASPIN AL 1/> REGION MANUAL 93971 [place] THERAPY 6 AMA TQS 1/> CHIROPRAC REGIONS TIC CENTE EACH 15 MINUTES CHIROPRAC 13557 [place] TIC 6 AMA MANIPULAT CHIROPRAC DOM[place] TX TIC CENTE SPINAL 3-4 REGIONS MANUAL 35355 [place] THERAPY 6 AMA TQS 1/> CHIROPRAC REGIONS TIC CENTE EACH 15 MINUTES CHIROPRAC 34269 [place] TIC 6 AMA MANIPULAT CHIROPRAC DOMINICK TX TIC CENTE SPINAL 3-4 REGIONS APPL 69734 [place] C[place] MODALITY 6 AMA 1/> AREAS CHIROPRAC ELEC TIC CENTE STIMJ UNATTENDE D APPL 04999 [place] MODALITY 6 AMA 1/> AREAS CHIROPRAC TRACTION TIC CENTE MECHANICA L CHIROPRAC 63777 [place]RE[place] TIC 6 AMA MANIPLTV CHIROPRAC TX TIC CENTE EXTRASPIN AL 1/> [place] [address] [place] 1/> AREAS 6 AMA EACH 15 CHIROPRAC [place] [address] [place] C[place] 1/> AREAS 6 AMA EACH 15 CHIROPRAC MIN TIC CENTE NEUROMUSC REEDUCA APPL 04584 [place] MODALITY 6 AMA 1/> AREAS CHIROPRAC ELEC TIC CENTE STIMJ UNATTENDE D APPL 45176 [place] MODALITY 6 AMA 1/> AREAS CHIROPRAC TRACTION TIC CENTE MECHANICA L CHIROPRAC 38465 EMMIE CANTRELL TIC 6 AMA MANIPLTV CHIROPRAC TX TIC CENTE EXTRASPIN AL 1/> REGION MANUAL 98006 EMMIE CANTRELL THERAPY 6 AMA TQS 1/> CHIROPRAC REGIONS TIC CENTE EACH 15 MINUTES CHIROPRAC 15403 EMMIE CANTRELL TIC 6 AMA MANIPULAT CHIROPRAC DOMINICK TX TIC CENTE SPINAL 3-4 REGIONS IAADIADOO 74872 ORTHODOXY SHANIKA 6 [facility] STREPT[facility] MEDICAL CCUS GROUP GROUP A ANTINUCLE 80845 ANTONIO ALVAREZ AR 6 [facility] [place] [address] ANTONIO ALVAREZ THYROXINE 6 [facility] TOTAL INC INC COLLECTIO 63274 [facility] YOLANDE N VENOUS 6 PHYSICIAN STONE BLOOD S GROUP PA-Zuleyma ALANIZ VENIPUNCT URE BLOOD 34572 ANTONIO ALVAREZ COUNT 6 [facility] COMPLETE INC INC AUTO&AUTO DIFRNTL WBC DNA 16902 ANTONIO ALVAREZ ANTIBODY 6 [facility] PILOT POINT/DO INC INC UBLE STRANDED C-REACTIV 75199 ANTONIO ALVAREZ E PROTEIN 6 [place] [address] ANTONIO ALVAREZ THYROID 6 [facility] STIMULATI INC INC NG HORMONE TSH COMPREHEN 71217 ANTONIO ALVAREZ SIVE 6 [facility] METABOLIC INC INC PANEL SEDIMENTA 82201 ANTONIO ALVAREZ TION RATE 6 [facility] RBC INC INC NON-AUTOM ATED CREATINE 54697 ANTONIO ALVAREZ KINASE 6 [facility] TOTAL INC INC 25 55229 ANTONIO ALVAREZ HYDROXY 6 [facility] INCLUDES INC INC FRACTIONS IF PERFORMED OPHTH 96661 [facility] 6 GRE GRE XM&EVAL COMPRE NEW PT 1/> VST INJECTION J1040 [facility] JEFFRY 6 PHYSICIAN HUGH METHYLPRE S GROUP DNISOLONE ACETATE 80 MG INJECTION J0696 [facility] JEFFRY 6 PHYSICIAN HUGH CEFTRIAXO S GROUP NE SODIUM PER 250 MG THERAPEUT 89435 [facility] IC 6 PHYSICIAN HUGH PROPHYLAC S GROUP TIC/DX INJECTION SUBQ/IM THERAPEUT 18627 [facility] JEFFRY IC 6 PHYSICIAN HUGH PROPHYLAC S GROUP TIC/DX INJECTION SUBQ/IM INJECTION J0696 [facility] 6 PHYSICIAN HUGH CEFTRIAXO S GROUP NE SODIUM PER 250 MG INJECTION J1040 [facility] 6 PHYSICIAN HUGH METHYLPRE S GROUP DNISOLONE ACETATE 80 MG INJECTION J[address] SONE SODIUM PHOSPHATE 1 [address] [facility] IC 6 [facility] TIC/DX INJECTION SUBQ/IM INJECTION J05[address] N G BENZATH[place] E 147194 UNITS TOTAL 08217 [facility] SCHULSTAD ABDOMINAL 5 PHYSICIAN CAM S GROUP HYSTERECT W/[place] L[place] [address] [facility], PICKLESIM SURG 5 LLC ER [facility] PATHOLOGY GROSS&HUGH ROSCOPIC EXAM ANESTHESI 53092 [facility]EN A 5 ANESTH INTRAPERI OF THE TONEAL BLUE LOWER ABD W/LAPS NOS COLLECTIO 22893 ANTONIO ALVAREZ N VENOUS 5 [facility] BLOOD INC INC VENIPUNCT URE CULTURE 20181 ANTONIO ALVAREZ BACTERIAL 5 [facility] INC INC QUANTTATI VE COLONY COUNT URINE SMR PRIM 49670 ROSIBEL ROMAN SRC WET 5 JESSIE MEDLEY NFCT AGT SUSCEPTIB 98599 ANTONIO ALVAREZ LTY STDY 5 [facility] ANTIMICRB INC INC IAL MICRO/AGA R DILUTJ BLOOD 41001 ANTONIO ALVAREZ COUNT 5 [facility] COMPLETE INC INC AUTO&AUTO DIFRNTL WBC GONADOTRO 05847 ANTONIO ALVAREZ PIN 5 [facility] CHORIONIC INC INC QUALITATI VE URNLS DIP 16391 ANTONIO ALVAREZ 5 [facility] STICK/TAB INC [place] [address] [facility]AMES TRANSVAGI 5 MEDICAL ARELY NAL IMAGING ASS URINLS 88395 ROSIBEL ROMAN DIP 5 JESSIE BOTELLO SHASTA STICK/TAB LET REAGNT NON-AUTO MICRSCPY APPL 18963 EMMIE SALEEM MODALITY 5 GAR 1/> AREAS CHIROPRAC TRACTION TIC CENTE MECHANICA L CHIROPRAC 49579 CYNCUATE SALEEM TIC 5 GAR MANIPLTV CHIROPRAC TX TIC CENTE EXTRASPIN AL 1/> REGION CHIROPRAC 63907 CYNCUATE SALEEM TIC 5 GAR MANIPULAT CHIROPRAC DOMINICK TX TIC CENTE SPINAL 1-[address] [place] [address] CYNCUATE SALEEM 1/> AREAS 5 GAR EACH 15 CHIROPRAC [place] [address] CYNJAREDANA HARPER 1/> AREAS 5 GAR EACH 15 CHIROPRAC [place] [address] [place] HARPER 1/> AREAS 5 GAR EACH 15 CHIROPRAC MINUTES TIC CENTE MASSAGE CHIROPRAC 49400 CYNCUATE SALEEM TIC 5 GAR MANIPLTV CHIROPRAC TX TIC CENTE EXTRASPIN AL 1/> REGION CHIROPRAC 15729 CYNCUATE SALEEM TIC 5 GAR MANIPULAT CHIROPRAC DOMINICK TX TIC CENTE SPINAL 1-2 REGIONS CHIROPRAC 73785 CYNCUATE SALEEM TIC 5 GAR MANIPULAT CHIROPRAC DOMINICK TX TIC CENTE SPINAL 1-[address] [place] [address] CYNJAREDANA HARPER 1/> AREAS 5 GAR EACH 15 CHIROPRAC MIN [place] [address] [place] HARPER 1/> AREAS 5 GAR EACH 15 CHIROPRAC MINUTES TIC CENTE MASSAGE URNLS DIP 51834 ANTONIO BELTRAN 5 [facility] LET RGNT NON-AUTO W/O MICRSCP COMPREHEN 50610 ANTONIO ALVAREZ SIVE 5 [facility] METABOLIC INC INC PANEL COLLECTIO 57148 ANTONIO ALVAREZ N VENOUS 5 [facility] BLOOD INC INC VENIPUNCT URE BLOOD 91387 ANTONIO ALVAREZ COUNT 5 [facility] COMPLETE INC INC AUTO&AUTO DIFRNTL WBC URNLS DIP 79825 ANTONIO ALVAREZ 5 [facility] STICK/TAB INC INC LET REAGENT AUTO MICROSCOP Y BLOOD 31371 ANTONIO ALVAREZ COUNT 5 [facility] COMPLETE INC INC AUTO&AUTO DIFRNTL WBC URNLS DIP 48451 ANTONIO ALVAREZ 5 [facility] STICK/TAB INC INC LET REAGENT AUTO MICROSCOP Y COMPREHEN 66835 ANTONIO ALVAREZ SIVE 5 [facility] [address] ANTONIO ALVAREZ ABDOMEN & 5 [facility] PELVIS INC INC W/O CONTRAST MATERIAL COMPREHEN 14340 ANTONIO ALVAREZ SIVE 5 [facility] METABOLIC INC INC PANEL UNCLASSIF J3490 ANTONIO ALVAREZ IED DRUGS 5 [facility] INC INC BLOOD 00752 ANTONIO ALVAREZ COUNT 5 [facility] COMPLETE INC INC AUTO&[place] [address] ANTONIO ALVAREZ INFUSION 5 [facility] THERAPY/P INC INC ROPHYLAXI S /DX 1ST TO 1 HR IMMUNOASS 34230 ANTONIO ALVAREZ AY NFCT 5 [facility] AGT ANTB INC INC QUAL/SEMI ANGIE 1 STEP SMR PRIM 99947 ROSIBEL ROMAN SRC WET 5 JESSIE VEGAS [facility] NFCT AGT HGB 84186 ROSIBEL ROMAN QUANTITAT 5 JSESIE VEGAS DOMINICK TRANSCUTA NEOUS BLOOD 01513 ANTONIO ALVAREZ COUNT 5 [facility] [place] [address] ANTONIO ALVAREZ INFUSION 5 [facility] THERAPY INC INC PROPHYLAX IS/DX EA HOUR UNCLASSIF J3490 ANTONIO ALVAREZ IED DRUGS 5 [facility] INC INC DILATION 62728 ROSIBEL ROMAN & 5 JESSIE VEGAS CURETTAGE DX&/THER NONOBSTET JACQUI BLOOD 34461 ANTONIO ALVAREZ COUNT 5 [facility] HEMATOCRI INC INC T COLLECTIO 45111 ANTONIO ALVAREZ N VENOUS 5 [facility] BLOOD INC INC VENIPUNCT URE INJECTION J2405 ANTONIO ALVAREZ 5 [facility] ONDANSETR INC INC ON HCL [place] 1 [place] [address] [facility], [facility], SURG 5 [facility] GROSS&HUGH ROSCOPIC EXAM ANESTHESI 54195 [facility] VAGINAL 5 ANESTH LUCERO OF THE PROCEDURE BLUE W/BIOPSY NOS CULTURE 63700 ANTONIO ALVAREZ BACTERIAL 5 [facility] INC INC QUANTTATI VE COLONY COUNT URINE URINE 80541 ANTONIO ALVAREZ 5 [facility] TEST INC INC VISUAL COLOR CMPRSN METHS COLLECTIO 52828 ANTONIO ALVAREZ N VENOUS 5 [facility] BLOOD INC INC VENIPUNCT URE BLOOD 34999 ANTONIO ALVAREZ COUNT 5 [facility] COMPLETE INC INC AUTO&AUTO DIFRNTL WBC URNLS DIP 29969 ANTONIO ALVAREZ 5 [facility] STICK/TAB INC INC LET REAGENT AUTO MICROSCOP Y BLOOD 14198 ANTONIO ALVAREZ COUNT 5 [facility] COMPLETE INC INC AUTO&[place] [address] ANTONIO ALVAREZ TRANSVAGI 5 [facility] NAL INC INC COLLECTIO 67970 ANTONIO ALVAREZ N VENOUS 5 [facility] BLOOD INC INC VENIPUNCT URE COMPUTER- 75682 ANTONIO ALVAREZ AIDED 5 [facility] DETECTION INC INC SCREENING MAMMOGRAP HY SCREENING G0202 ANTONIO ALVAREZ 5 [facility] MAMMOGRAP INC INC HY MICHELE INCL CAD WHEN PERFORMD Encounters Encounter Start End Date Code Location Performer Type Date OFFICE 92124 [facility] STONE OUTPATIEN 7 7 PHYSICIAN T VISIT S GROUP 25 MINUTES OFFICE 32353 [facility] OUTPATIEN 6 6 PHYSICIAN T VISIT S GROUP 15 MINUTES OFFICE 32918 [facility] [place] OUTPATIEN 6 6 PHYSICIAN T VISIT S GROUP 15 MINUTES [facility] AN[facility]IO - 6 6 [facility] OUTPATIEN INC T PERIODIC 73694 [facility] [place] PREVENTIV 6 6 PHYSICIAN SHASTA E MED EST S GROUP PATIENT 40-64YRS OFFICE 41941 [facility] [place] OUTPATIEN 6 6 PHYSICIAN EUG T VISIT S GROUP 15 MINUTES HOSPITAL ANTONIO - 6 6 [facility] OUTPATIEN INC T OFFICE 54588 [facility] [place] OUTPATIEN 6 6 PHYSICIAN T NEW 30 S GROUP MINUTES [facility]OSPITAL ANTONIO - 6 6 [facility] OUTPATIEN INC T OFFICE 61520 [facility] [place] OUTPATIEN 6 6 PHYSICIAN EUG T VISIT S GROUP 15 MINUTES OFFICE 51668 [facility] [place] OUTPATIEN 6 6 PHYSICIAN T VISIT GROUP 25 MINUTES OFFICE 00341 [place] CANTRE[place] OUTPATIEN 6 6 AMA T VISIT CHIROPRAC 15 TIC CENTE MINUTES OFFICE 63204 [facility] [place] OUTPATIEN 6 6 PHYSICIAN T VISIT GROUP 15 MINUTES EMERGENCY 31985 ALYSIA VILLALOBOS [facility] 6 6 [facility]YSICIAN DEPART[facility] T VISIT MODERATE SEVERITY [facility]OSPITAL ANTONIO - 6 6 [facility] OUTPATIEN INC T OFFICE 62303 [place] CANTRELL OUTPATIEN 6 6 AMA T VISIT CHIROPRAC 15 TIC CENTE MINUTES EMERGENCY 80309 ANTONIO 6 6 [facility] DEPARTMEN INC T VISIT LOW/MODER SEVERITY OFFICE 08506 ANTONIO ALMONTE OUTPATIEN 6 6 [facility] 25 MINUTES OFFICE 27950 ORTHODOXY SHANIKA OUTPATIEN 6 6 [facility]ALTH [facility] T VISIT MEDICAL 15 GROUP MINUTES HOSPITAL ANTONIO - 6 6 [facility] OUTPATIEN INC T OFFICE 51737 [facility] YOLANDE OUTPATIEN 6 6 PHYSICIAN STONE T VISIT S GROUP DOMINGO ALANIZ 25 MINUTES OFFICE 85441 ROSIBEL ROMAN OUTPATIEN 6 6 JESSIE BOTELLO SHASTA T VISIT 15 MINUTES OFFICE 73623 [facility] JEFFRY OUTPATIEN 6 6 PHYSICIAN HUGH T VISIT S GROUP 15 MINUTES OFFICE 26304 [facility] JEFFRY OUTPATIEN 6 6 PHYSICIAN HUGH T VISIT S GROUP 15 MINUTES OFFICE 25593 ANTONIO EASLEY OUTPATIEN 6 6 [facility] VISIT [facility] 15 MINUTES HOSPITAL ANTONIO - 5 6 [facility] INPATIENT INC OFFICE 09749 ROSIBEL ROMAN OUTPATIEN 5 5 JESSIE BOTELLO SHASTA T VISIT 15 MINUTES HOSPITAL ANTONIO - 5 5 [facility] OUTPATIEN INC T [facility]OSPITAL ANTONIO - 5 5 [facility] OUTPATIEN INC T OFFICE 34231 ROSIBEL ROMAN OUTPATIEN 5 5 JESSIE BOTELLO SHASTA T VISIT 25 MINUTES OFFICE 26223 EMMIE SALEEM OUTPATIEN 5 5 [facility] T VISIT CHIROPRAC 10 TIC CENTE MINUTES OFFICE 63922 ANTONIO BELTRAN OUTPATIEN 5 5 [facility] T VISIT [facility] 15 MINUT[facility] HOSPITAL ANTONIO - 5 5 [facility] OUTPATIEN INC T EMERGENCY 17687 ALYSIA JAMISON 5 5 PHYSICIAN HU[facility]PART[facility] T VISIT HIGH/URGE NT SEVERITY [facility]OSPITAL ANTONIO - 5 5 [facility] OUTPATIEN INC T EMERGENCY 21621 ANTONIO 5 5 [facility] DEPARTMEN INC T VISIT MODERATE SEVERITY [facility]OSPITAL ANTONIO - 5 5 [facility] OUTPATIEN INC T EMERGENCY 92207 ANTONIO 5 5 [facility] T VISIT HIGH/URGE NT SEVERITY EMERGENCY 78296 ANTONIO Apodaca 5 5 [facility] T VISIT P MODERATE SEVERITY OFFICE 75798 ROSIBEL ROMAN OUTPATIEN 5 5 JESSIE VEGAS T VISIT 15 MINUTES HOSPITAL ANTONIO - 5 5 [facility] OUTPATIEN INC T HOSPITAL ANTONIO - 5 5 [facility] OUTPATIEN INC T OFFICE 78600 ROSIBEL ROMAN OUTPATIEN 5 5 JESSIE VEGAS T VISIT 15 MINUTES OFFICE 10788 ROSIBEL ROMAN OUTPATIEN 5 5 JESSIE VEGAS T VISIT 15 MINUTES HOSPITAL ANTONIO - 5 5 [facility] OUTPATIEN INC T OFFICE 99914 ROSIBEL ROMAN OUTPATIEN 5 5 JESSIE VEGAS T VISIT 15 MINUTES HOSPITAL ANTONIO - 5 5 [facility] OUTPATIEN INC T Emergency KAMILLE Jamison MD (ER) 3 05:26 3 05:27 [facility]
--- OUTSIDE RECORDS SUMMARY | 2016-10-10 20:16 | External Medical Summary Rpt ---
Author Author , Organization [employer] Address Unknown Phone Unavailable Care Team Providers Care Valve Maker Name Role Phone [facility], [facility] BEINEKE HARINDER, BEINEKE Unavailable Unavailable HARINDER HERNANDEZ TER, HERNANDEZ TER Unavailable Unavailable JAVIER L, JAVIER L Unavailable Unavailable [facility], [facility] MAZARIEGOS ALL, MAZARIEGOS ALL Unavailable Unavailable GAGE, GAGE Unavailable Unavailable GAGE MOTLEY, Unavailable Unavailable GAGE MOTLEY JACOB, JACOB Unavailable Unavailable JACOB ARELY, Unavailable Unavailable JACOB ARELY [place] [facility] YOLANDE THORPE PA-C Unavailable Unavailable CORBINYOLANDE PA-C CORBIN SPARROW JADEN, SPARROW JADEN Unavailable Unavailable TUCKER, TUCKER Unavailable Unavailable ARAGON, ARAGON Unavailable Unavailable FRYMAN, FRYMAN Unavailable Unavailable FRYMAN EUG, FRYMAN Unavailable Unavailable EUG JEFFRY HUGH, JEFFRY Unavailable Unavailable HUGH ROSIBEL ROMAN MD, Unavailable Unavailable JESSIE LOPEZ MD Unavailable Unavailable [facility] Unavailable Unavailable INC, [facility], [facility] Un[facility], Unavailable Unavailable [facility] CANTRELL AMA, CANTRELL Unavailable Unavailable [facility]MA [facility], Unavailable Unavailable [facility], Unavailable Unavailable [facility] HARPER GAR, Unavailable Unavailable HARPER [facility] Un[facility], [facility] RENEE PRA, RENEE PRA Unavailable Unavailable PICKLESIMER JR SANTOSH, Unavailable Unavailable PICKLESIMER JR SANTOSH SHANIKA HEN, SHANIKA Unavailable Unavailable HEN CUNNINGHAM, CUNNINGHAM Unavailable Unavailable SADEK MOH, SADEK MOH Unavailable Unavailable SCHULSTAD CAM, Unavailable Unavailable SCHULSTAD CAM STONE, STONE Unavailable Unavailable SAVANNA BARKER, SAVANNA Unavailable Brandee BARKER Purpose Continuity of Care Document - 06-16-2014 through 2016 Problems Code Diagnosis DOS Provider Status [id number] PAIN IN 07-10-2016 [place] RIGHT [facility] SHOULDER [...] SOMATIC CHIROPRACTI DYSFUNCTION C CENTE LOWER EXTREMITY [id number] ACUTE 06-29-2016 [facility] SUPPURATIVE PHYSICIANS OM W/O GROUP RUPT EAR DRUM RT EAR R109 UNSPECIFIED 06-29-2016 [facility] ABDOMINAL PHYSICIANS PAIN GROUP J40 BRONCHITIS 05-25-2016 [facility] NOT PHYSICIANS SPECIFIED GROUP ACUTE OR CHRONIC J0100 ACUTE 05-22-2016 [facility] MAXILLARY PHYSICIANS SINUSITIS GROUP UNSPECIFIED Z1231 ENCOUNTER 05-01-2016 [place] [facility] MALIG [facility]AGING ASS NEOPLASM BREAST N951 MENOPAUSAL 04-25-2016 [facility] AND FEMALE PHYSICIANS CLIMACTERIC GROUP STATES G60378 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[facility] 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 PHYSICIANS GENERAL RTN GROUP W/O ABNORMAL FIND Z1212 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[facility] SCREENING PHYSICIANS MALIGNANT GROUP NEOPLASM RECTUM J0390 ACUTE 04-13-2016 [facility] TONSILLITIS PHYSICIANS GROUP UNSPECIFIED M542 CERVICALGIA 03-30-2016 [place] [facility] [id number] SPRAIN 03-30-2016 [place] LIGAMENTS CHIROPRACTI LUMBAR C CENTE SPINE INITIAL ENCOUNTER [id number] STRAIN 03-30-2016 [place] MUSCLE [facility]IR[facility]I FASCIA & C CENTE TENDON LOW BACK INITIAL F13992 PAIN IN 03-28-2016 [place] [facility] M7989 OTHER 03-28-2016 [place] SPECIFIED MEDICAL SOFT TISSUE IMAGING ASS DISORDERS 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 M654 RADIAL 03-15-2016 [facility] STYLOID PHYSICIANS TENOSYNOVIT GROUP IS DE QUERVAIN M99869 GANGLION 03-15-2016 [facility] RIGHT WRIST PHYSICIANS GROUP W34799 GANGLION 03-15-2016 [facility] LEFT WRIST PHYSICIANS GROUP J029 ACUTE 03-07-2016 [facility] PHARYNGITIS PHYSICIANS GROUP UNSPECIFIED C96007 PAIN IN 03-07-2016 [place] [facility]RI[facility] Z50208 GANGLION 03-07-2016 [facility] RIGHT HAND PHYSICIANS GROUP O89332 GANGLION 03-07-2016 [facility] LEFT HAND PHYSICIANS GROUP T27726 PAIN IN 03-07-2016 [facility] M9903 SEGMENTAL & 01-21-2016 [place] SOMATIC CH[facility]OP[facility] DYSFUNCTION C CENTE OF LUMBAR REGION M545 LOW BACK 01-11-2016 [place] PAIN [facility]OP[facility]I C CENTE I10 ESSENTIAL 01-04-2016 [facility] HYPERTENSIO INC N K1120 SIALOADENIT 01-04-2016 [facility], UNSPECIFIED PLLC K1121 ACUTE 01-04-2016 [facility] IS INC J329 CHRONIC 12-27-2015 [facility] SINUSITIS [facility] J0140 ACUTE 11-22-2015 [facility] S MEDICAL UNSPECIFIED GROUP H6980 OTHER SPEC 11-09-2015 [facility] DISORDERS PHYSICIANS EUSTACHIAN GROUP TUBE UNS EAR T36651 UNSPECIFIED 11-09-2015 [facility] ASTHMA PHYSICIANS UNCOMPLICAT GROUP ED R5383 OTHER 11-09-2015 [facility] FATIGUE PHYSICIANS GROUP Z840 FAMILY 11-09-2015 [facility] HISTORY PHYSICIANS DISEASES GROUP SKIN & SUBQ TISSUE Z0100 ENCOUNTER 11-04-2015 [facility] EX[facility] EYES & GRE VISION W/O ABNORMAL FIND H6690 OTITIS 09-22-2015 [facility] MEDIA PHYSICIANS UNSPECIFIED GROUP UNSPECIFIED EAR J040 ACUTE 09-22-2015 [facility] LARYNGITIS PHYSICIANS GROUP Q98232 OTHER ACUTE 09-12-2015 [facility] DOMINICK OM RECURRENT BILAT J0190 ACUTE 09-12-2015 [facility] SINUSITIS [facility] J209 ACUTE 09-12-2015 [facility] BRONCHITIS [facility] D259 LEIOMYOMA 06-03-2015 [facility] UNSPECIFIED K660 PERITONEAL 06-03-2015 [facility] ADHESIONS [facility] POSTPROC INC POSTINFECTI ON N736 FEMALE 06-03-2015 [facility] PELVIC PHYSICIANS PERITONEAL GROUP ADHESIONS POSTINFECTI VE N800 ENDOMETRIOS 06-03-2015 [facility] IS OF LLC UTERUS N831 CORPUS 06-03-2015 [facility] LUTEUM CYST LLC N8320 UNSPECIFIED 06-03-2015 [facility] OVARIAN PHYSICIANS CYSTS GROUP N856 INTRAUTERIN 06-03-2015 [facility] E SYNECHIAE LLC N938 OTHER SPEC 06-03-2015 [facility] ABNORMAL PHYSICIANS UTERINE & GROUP VAGINAL BLEEDING R102 PELVIC AND 06-03-2015 [facility] PERINEAL [facility] PAIN INC B9689 OTH SPEC 05-24-2015 [facility] Ceballos BACTERIAL JESSIE BOTELLO AGNT CAUSE DZ CLASSIFIED ELSW N760 ACUTE 05-24-2015 ROSIBEL Ceballos VAGINIXENA ROMAN MD R50122 ENCOUNTER 05-24-2015 [facility] FOR OTHER [facility] PREPROCEDUR INC AL EXAMINATION N852 HYPERTROPHY 05-10-2015 [place] [facility] N9489 OTH COND 05-04-2015 [facility] Ceballos ASSOC W/FE JESSIE BOTELLO GEN ORGN & MENSTRUAL CYCL 4019 UNSPECIFIED 02-03-2015 [facility] N 36609 ASTHMA, 02-03-2015 [facility] UNSPECIFIED [facility] UNSPECIFIED STATUS 5990 URINARY 02-03-2015 [facility] SITE NOT SPECIFIED 46960 ABDOMINAL 01-05-2015 [facility] PAIN OTHER [facility] SPECIFIED INC SITE 50111 OTHER 11-03-2014 [place] SPECIFIED MEDICAL DISORDER OF IMAGING ASS KIDNEY AND URETER 90880 ABDOMINAL 11-03-2014 [facility] PAIN RIGHT [facility] UPPER INC QUADRANT V1301 PERSONAL 11-03-2014 [facility] HISTORY OF [facility] URINARY INC CALCULI 462 ACUTE 10-07-2014 [facility] PHARYNGITIS [facility] P 43378 ACUTE 10-07-2014 [place] LARYNGITIS, [facility] P MENTION OF OBSTRUCTIO 32317 UNSPECIFIED 09-14-2014 ROSIB[facility] Ceballos VAGINIXENA ROMAN MD AND VULVOVAGINI TIS 6262 EXCESSIVE 09-14-2014 ROS[facility] Ceballos OR MELANY ROMAN MD MENSTRUATIO N 0794 HUMAN 08-28-2014 [facility] VIRUS IN CCE & UNS SITE 6268 OT D/O 08-28-2014 [facility] MENSTRUATIO [facility] N&OTH ABN INC BLEED FE GNT TRACT 6202 OTHER AND 08-27-2014 ROSIBEL Ceballos UNSPECIFIED JESSIE BOTELLO OVARIAN CYST V7283 OTHER 08-27-2014 [facility] SPECIFIED [facility] PRE-OPERATI INC VE EXAMINATION 6259 UNSPEC 08-25-2014 [facility] SYMPTOM [facility] ASSOC INC W/FEMALE GENITAL ORGANS 6272 SYMPTOMATIC 07-30-2014 ROSIBEL ROMAN MD MENOPAUSAL/ FEMALE CLIMACTERIC STATES V7612 OTHER 06-16-2014 [facility] SCREENING [facility] MAMMOGRAM INC Medications Na ND Rx Da Fi Fi [...] NO 00 2- 7- 00 01 ve IA 52 20 20 16 AI IL 00 [...] MG #3 TA 93 BL 8 ET IA 59 01 02 10 5 00 RI [...] NO 00 5- 0- 00 01 ve IA 52 20 20 16 AI IL 00 [...] MG #3 TA 93 BL 8 ET CL 65 12 01 20 10 00 RI Ac AR 86 -2 -2 .0 00 TE ti IT 20 2- 0- 00 01 ve HR 22 20 20 16 AI OM 66 16 17 36 D YC 0 13 PH IN AR MA 50 CY 0 MG #3 93 TA 8 BL ET IA 00 12 01 20 10 00 RI Ac OM 60 -2 -2 0. 00 TE ti ET 31 2- 0- 00 01 ve RAMIRES 58 20 20 0 16 AI ZI 65 16 17 36 D NE 4 14 PH -D AR M MA SY CY RU P #3 93 8 IA 00 12 01 10 5 00 RI [...] AI L 42 16 17 36 D GASCA 5 17 PH L AR 1. MA 25 CY MG #3 /3 93 8 ML SO L ES 00 12 01 8. 28 00 RI Ac TR 37 -2 -2 00 00 TE ti AD 84 6- 0- 0 01 ve IO 64 20 20 15 AI L 02 16 17 92 D 0. 6 37 PH 1 AR MG MA CY PA TC #3 H 93 8 AM 00 12 01 20 10 00 [...] NO 00 5- 3- 00 01 ve IA 52 20 20 16 AI IL 00 16 17 26 D -H [address] AR Z MA 20 CY -2 5 #3 MG 93 8 TA B Procedures Procedure DOS Code Location Performer Comment CH[facility] 63840 [place] [facility] T[facility] 7 MANIPULAT [facility] [place] TIC CENTE SPINAL 1-2 REGIONS MANUAL 84507 [place] [facility]AP[facility] 7 TQS 1/> [facility] REGIONS TIC CENTE EACH 15 MINUTES URNLS DIP 32556 [facility] 7 PHYSICIAN PHYSICIAN STICK/TAB S GROUP S GROUP LET RGNT NON-AUTO W/O MICRSCP THERAPEUT 08656 [facility] STONE IC 7 PHYSICIAN PROPHYLAC S GROUP TIC/DX INJECTION SUBQ/IM INJECTION J0696 [facility] STONE 7 PHYSICIAN CEFTRIAXO S GROUP NE SODIUM PER 250 MG INJECTION J0696 [facility] STONE 6 PHYSICIAN CEFTRIAXO S GROUP NE SODIUM PER 250 MG THERAPEUT 71202 [facility] STONE IC 6 PHYSICIAN PROPHYLAC S GROUP TIC/DX INJECTION SUBQ/IM THERAPEUT 92509 [facility] FRYMAN IC 6 PHYSICIAN PROPHYLAC S GROUP TIC/DX INJECTION SUBQ/IM INJECTION J0696 [facility] FRYMAN 6 PHYSICIAN CEFTRIAXO S GROUP NE SODIUM PER 250 MG SCREENING G0202 [facility] 6 [facility] MAMMOGRAP INC INC HY MICHELE INCL CAD WHEN PERFORMD COMPUTER- 57582 [facility] AIDED 6 [facility] DETECTION INC INC SCREENING MAMMOGRAP HY CULTURE 43404 [facility] HARPEL CHLAMYDIA 6 PHYSICIAN SHASTA ANY S GROUP SOURCE IADNA 25442 BIO BIO CHLAMYDIA 6 REFERNCE 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 TRACHOMAT IES IES IS AMPLIFIED PROBE TQ URINLS 89016 [facility] HARPEL DIP 6 PHYSICIAN SHASTA STICK/TAB S GROUP LET REAGNT NON-AUTO MICRSCPY IADNA 16421 [facility] NEISSERIA 6 PHYSICIAN PHYSICIAN S GROUP S GROUP GONORRHOE AE DIRECT PROBE TQ CYTP C/V 69526 BIO BIO AUTO THIN 6 REFERNCE REFERNCE LYR LABORATOR LABORATOR PREPJ SCR IES IES MNL RESCR PHYS IADNA 21151 BIO BIO NEISSERIA 6 REFERNCE REFERNCE LABORATOR LABORATOR GONORRHOE IES IES AE AMPLIFIED PROBE TQ IADNA NOS 14160 BIO BIO 6 REFERNCE REFERNCE AMPLIFIED LABORATOR LABORATOR PROBE TQ IES IES EACH ORGANISM IADNA 27867 BIO BIO TRICHOMON 6 REFERNCE REFERNCE LABORATOR LABORATOR VAGINALIS IES IES AMPLIFIED PROBE TECH THERAPEUT 25994 [facility] IC 6 PHYSICIAN EUG PROPHYLAC S GROUP TIC/DX INJECTION SUBQ/IM INJECTION J0696 [facility] FR[facility] 6 PHYSICIAN EUG CEFTRIAXO S GROUP NE SODIUM PER 250 MG CHIROPRAC 43123 [place] CANTRELL TIC 6 AMA MANIPULAT CHIROPRAC [place] TX TIC CENTE SPINAL 3-4 REGIONS MANUAL 02024 [place] CANTRELL THERAPY 6 AMA TQS 1/> CHIROPRAC REGIONS TIC CENTE EACH 15 MINUTES CHIROPRAC 38065 [place] CANTRELL TIC 6 AMA MANIPLTV CHIROPRAC TX TIC CENTE EXTRASPIN AL 1/> REGION MRI UPPER 87176 [place] JACOB 6 MEDICAL EXTREMITY IMAGING OTH THAN ASS JT W/O CONTR MATRL APPL 12916 [place] CANTRELL MODALITY 6 AMA 1/> AREAS CHIROPRAC ELEC TIC CENTE STIMJ UNATTENDE D CHIROPRAC 21643 [place] CANTRELL TIC 6 AMA MANIPULAT CHIROPRAC [place] TX TIC CENTE SPINAL 3-4 REGIONS APPL 51713 [place] CANTRELL MODALITY 6 AMA 1/> AREAS CHIROPRAC TIC CENTE ULTRASOUN D EA 15 MIN MANUAL 55692 [place] CANTRELL THERAPY 6 AMA TQS 1/> CHIROPRAC REGIONS TIC CENTE EACH 15 MINUTES THERAPEUT 05520 [facility] IC 6 PHYSICIAN PHYSICIAN PROPHYLAC S GROUP S GROUP TIC/DX INJECTION SUBQ/IM RADEX 28152 [place] MAZARIEGOS ALL HAND 2 6 MEDICAL VIEWS IMAGING ASS RADEX 22975 [place] MAZARIEGOS ALL WRIST 2 6 MEDICAL VIEWS IMAGING ASS APPL 78980 [place] CANTRELL MODALITY 6 AMA 1/> AREAS CHIROPRAC ELEC TIC CENTE STIMJ UNATTENDE D CHIROPRAC 54961 [place] CANTRELL TIC 6 AMA MANIPULAT CHIROPRAC [place] TX TIC CENTE SPINAL 3-4 REGIONS APPL 70891 [place] CANTRELL MODALITY 6 AMA 1/> AREAS CHIROPRAC TIC CENTE ULTRASOUN D EA 15 MIN MANUAL 66619 [place] CANTRELL THERAPY 6 AMA TQS 1/> CHIROPRAC REGIONS TIC CENTE EACH 15 MINUTES CHIROPRAC 36784 [place] CANTRELL TIC 6 AMA MANIPULAT CHIROPRAC DOM[place] TX TIC CENTE SPINAL 3-4 REGIONS APPL 02147 [place] CANTRELL MODALITY 6 AMA 1/> AREAS CHIROPRAC TIC CENTE ULTRASOUN D EA 15 MIN MANUAL 77425 [place] CANTRELL THERAPY 6 AMA TQS 1/> CHIROPRAC REGIONS TIC CENTE EACH 15 MINUTES APPL 00449 [place] CANTRELL MODALITY 6 AMA 1/> AREAS CHIROPRAC ELEC TIC CENTE STIMJ UNATTENDE D APPL 53613 [place] CANTRELL MODALITY 6 AMA 1/> AREAS CHIROPRAC ELEC TIC CENTE STIMJ UNATTENDE D CHIROPRAC 97895 [place] CANTRELL TIC 6 AMA MANIPULAT CHIROPRAC [place] TX TIC CENTE SPINAL 3-4 REGIONS APPL 46282 [place] CANTRELL MODALITY 6 AMA 1/> AREAS CHIROPRAC TIC CENTE ULTRASOUN D EA 15 MIN MANUAL 07341 [place] CANTRELL THERAPY 6 AMA TQS 1/> CHIROPRAC REGIONS TIC CENTE EACH 15 MINUTES CHIROPRAC 77094 [place] CANTRELL TIC 6 AMA MANIPULAT CHIROPRAC DOM[place] TX TIC CENTE SPINAL 3-4 REGIONS APPL 25132 [place] CANTRELL MODALITY 6 AMA 1/> AREAS CHIROPRAC TIC CENTE ULTRASOUN D EA 15 MIN MANUAL 97393 [place] CANTRELL THERAPY 6 AMA TQS 1/> CHIROPRAC REGIONS TIC CENTE EACH 15 MINUTES APPL 52306 [place] CANTRELL MODALITY 6 AMA 1/> AREAS CHIROPRAC ELEC TIC CENTE STIMJ UNATTENDE D APPL 86564 [place] CANTRELL MODALITY 6 AMA 1/> AREAS CHIROPRAC ELEC TIC CENTE STIMJ UNATTENDE D CHIROPRAC 52002 [place] CANTRELL TIC 6 AMA MANIPULAT CHIROPRAC DOM[place] TX TIC CENTE SPINAL 3-4 REGIONS APPL 60176 [place] CANTRELL MODALITY 6 AMA 1/> AREAS CHIROPRAC TIC CENTE ULTRASOUN D EA 15 MIN MANUAL 71577 [place] CANTRELL THERAPY 6 AMA TQS 1/> CHIROPRAC REGIONS TIC CENTE EACH 15 MINUTES CHIROPRAC 81372 [place] CANTRELL TIC 6 AMA MANIPLTV CHIROPRAC TX TIC CENTE EXTRASPIN AL 1/> REGION APPL 36445 [place] CANTRELL MODALITY 6 AMA 1/> AREAS CHIROPRAC ELEC TIC CENTE STIMJ UNATTENDE D CHIROPRAC 38654 [place] CANTRELL TIC 6 AMA MANIPULAT CHIROPRAC DOM[place] TX TIC CENTE SPINAL 3-4 REGIONS APPL 30949 [place] CANTRELL MODALITY 6 AMA 1/> AREAS CHIROPRAC TIC CENTE ULTRASOUN D EA 15 MIN MANUAL 95355 [place] CANTRELL THERAPY 6 AMA TQS 1/> CHIROPRAC REGIONS TIC CENTE EACH 15 MINUTES THERAPEUT 27345 [place] CANTRE[facility] IC PX 1/> 6 AMA AREAS CHIROPRAC EACH 15 TIC CENTE MIN EXERCISES CHIROPRAC 05138 [place] CANT[facility] TIC 6 AMA MANIPLTV CHIROPRAC TX TIC CENTE EXTRASPIN AL 1/> REGION APPL 09842 [place] CANT[facility]LL MODALITY 6 AMA 1/> AREAS CHIROPRAC TRACTION TIC CENTE MECHANICA L APPL 20770 [place] CANTRELL MODALITY 6 AMA 1/> AREAS CHIROPRAC ELEC TIC CENTE STIMJ UNATTENDE D MANUAL 56603 [place] CANT[facility]LL THERAPY 6 AMA TQS 1/> CHIROPRAC REGIONS TIC CENTE EACH 15 MINUTES CHIROPRAC 83882 [place] CANT[facility]LL TIC 6 AMA MANIPULAT CHIROPRAC DOM[place] TX TIC CENTE SPINAL 3-4 REGIONS APPL 26282 [place] CANTRELL MODALITY 6 AMA 1/> AREAS CHIROPRAC TIC CENTE ULTRASOUN D EA 15 MIN CHIROPRAC 38511 [place] CANT[facility]LL TIC 6 AMA MANIPLTV CHIROPRAC TX TIC CENTE EXTRASPIN AL 1/> REGION APPL 59644 [place] CANT[facility]LL MODALITY 6 AMA 1/> AREAS CHIROPRAC TRACTION TIC CENTE MECHANICA L APPL 18092 [place] CANTRELL MODALITY 6 AMA 1/> AREAS CHIROPRAC ELEC TIC CENTE STIMJ UNATTENDE D CHIROPRAC 59590 [place] CANTRELL TIC 6 AMA MANIPULAT CHIROPRAC DOM[place] TX TIC CENTE SPINAL 3-4 REGIONS APPL 41856 [place] CANTRELL MODALITY 6 AMA 1/> AREAS CHIROPRAC TIC CENTE ULTRASOUN D EA 15 MIN MANUAL 60440 [place] C[facility]LL THERAPY 6 AMA TQS 1/> CHIROPRAC REGIONS TIC CENTE EACH 15 MINUTES CHIROPRAC 63941 [place] CANT[facility]LL TIC 6 AMA MANIPULAT CHIROPRAC DOM[place] TX TIC CENTE SPINAL 3-4 REGIONS APPL 41286 [place] CANTRELL MODALITY 6 AMA 1/> AREAS CHIROPRAC TIC CENTE ULTRASOUN D EA 15 MIN MANUAL 00286 [place] CANT[facility]LL THERAPY 6 AMA TQS 1/> CHIROPRAC REGIONS TIC CENTE EACH 15 MINUTES CHIROPRAC 44680 [place] CANT[facility]LL TIC 6 AMA MANIPLTV CHIROPRAC TX TIC CENTE EXTRASPIN AL 1/> REGION APPL 13147 [place] CANT[facility]LL MODALITY 6 AMA 1/> AREAS CHIROPRAC TRACTION TIC CENTE MECHANICA L APPL 74200 [place] CANTRELL MODALITY 6 AMA 1/> AREAS CHIROPRAC ELEC TIC CENTE STIMJ UNATTENDE D CHIROPRAC 84281 [place] CANT[facility]LL TIC 6 AMA MANIPLTV CHIROPRAC TX TIC CENTE EXTRASPIN AL 1/> REGION APPL 59145 [place] CANT[facility]LL MODALITY 6 AMA 1/> AREAS CHIROPRAC TRACTION TIC CENTE MECHANICA L APPL 26271 [place] CANT[facility]LL MODALITY 6 AMA 1/> AREAS CHIROPRAC ELEC TIC CENTE STIMJ UNATTENDE D CHIROPRAC 76333 [place] CANT[facility]LL TIC 6 AMA MANIPULAT CHIROPRAC DOMIN[place] TX TIC CENTE SPINAL 3-4 REGIONS APPL 07703 [place] CANT[facility]LL MODALITY 6 AMA 1/> AREAS CHIROPRAC TIC CENTE ULTRASOUN D EA 15 MIN MANUAL 80695 [place] CANT[facility]LL THERAPY 6 AMA TQS 1/> CHIROPRAC REGIONS TIC CENTE EACH 15 MINUTES CHIROPRAC 75054 [place] CANT[place]LL TIC 6 AMA MANIPULAT CHIROPRAC DOMIN[place] TX TIC CENTE SPINAL 3-4 REGIONS APPL 03799 [place] CANT[facility]LL MODALITY 6 AMA 1/> AREAS CHIROPRAC TIC CENTE ULTRASOUN D EA 15 MIN MANUAL 26699 [place] CANT[facility]LL THERAPY 6 AMA TQS 1/> CHIROPRAC REGIONS TIC CENTE EACH 15 MINUTES CHIROPRAC 02910 [place] C[facility] TIC 6 AMA MANIPLTV CHIROPRAC TX TIC CENTE EXTRASPIN AL 1/> REGION RADEX 30915 [place] [facility] SPINE 6 AMA LUMBOSACR CHIROPRAC AL 2/3 TIC CENTE VIEWS APPL 23348 [place] [facility] MODALITY 6 AMA 1/> AREAS CHIROPRAC TRACTION TIC CENTE MECHANICA L APPL 99897 [place] CANT[facility] MODALITY 6 AMA 1/> AREAS CHIROPRAC ELEC TIC CENTE STIMJ UNATTENDE D APPL 79270 [place] CANT[facility] MODALITY 6 AMA 1/> AREAS CHIROPRAC ELEC TIC CENTE STIMJ UNATTENDE D APPL 98615 [place] CANT[place]LL MODALITY 6 AMA 1/> AREAS CHIROPRAC TRACTION TIC CENTE MECHANICA L CHIROPRAC 27416 [place] [facility] TIC 6 AMA MANIPLTV CHIROPRAC TX TIC CENTE EXTRASPIN AL 1/> REGION MANUAL 37077 [place] C[facility] THERAPY 6 AMA TQS 1/> CHIROPRAC REGIONS TIC CENTE EACH 15 MINUTES APPL 56191 [place] C[facility] MODALITY 6 AMA 1/> AREAS CHIROPRAC TIC CENTE ULTRASOUN D EA 15 MIN CHIROPRAC 88828 [place] TIC 6 AMA MANIPULAT CHIROPRAC DOM[place] TX TIC CENTE SPINAL 3-4 REGIONS CHIROPRAC 20656 [place] TIC 6 AMA MANIPULAT CHIROPRAC DOMIN[place] TX TIC CENTE SPINAL 3-4 REGIONS APPL 88526 [place] [facility] MODALITY 6 AMA 1/> AREAS CHIROPRAC TIC CENTE ULTRASOUN D EA 15 MIN MANUAL 75973 [place] C[facility] THERAPY 6 AMA TQS 1/> CHIROPRAC REGIONS TIC CENTE EACH 15 MINUTES CHIROPRAC 30929 [place] TIC 6 AMA MANIPLTV CHIROPRAC TX TIC CENTE EXTRASPIN AL 1/> REGION APPL 43595 [place] C[facility] MODALITY 6 AMA 1/> AREAS CHIROPRAC TRACTION TIC CENTE MECHANICA L APPL 12513 [place] C[facility] MODALITY 6 AMA 1/> AREAS CHIROPRAC ELEC TIC CENTE STIMJ UNATTENDE D CHIROPRAC 63737 [place] TIC 6 AMA MANIPLTV CHIROPRAC TX TIC CENTE EXTRASPIN AL 1/> REGION APPL 76321 [place] CANT[facility] MODALITY 6 AMA 1/> AREAS CHIROPRAC TRACTION TIC CENTE MECHANICA L APPL 32454 [place] CANT[facility] MODALITY 6 AMA 1/> AREAS CHIROPRAC ELEC TIC CENTE STIMJ UNATTENDE D CHIROPRAC 85858 [place] CANT[place] TIC 6 AMA MANIPULAT CHIROPRAC DOMIN[place] TX TIC CENTE SPINAL 3-4 REGIONS MANUAL 54998 [place] CANT[facility] THERAPY 6 AMA TQS 1/> CHIROPRAC REGIONS TIC CENTE EACH 15 MINUTES CHIROPRAC 96688 [place] C[place] TIC 6 AMA MANIPULAT CHIROPRAC [place] TIC CENTE SPINAL 3-4 REGIONS MANUAL 52493 [place] THERAPY 6 AMA TQS 1/> CHIROPRAC REGIONS TIC CENTE EACH 15 MINUTES CHIROPRAC 35449 [place] TIC 6 AMA MANIPLTV CHIROPRAC TX TIC CENTE EXTRASPIN AL 1/> REGION APPL 01556 [place] MODALITY 6 AMA 1/> AREAS CHIROPRAC TRACTION TIC CENTE MECHANICA L CHIROPRAC 15252 [place] TIC 6 AMA MANIPLTV CHIROPRAC TX TIC CENTE EXTRASPIN AL 1/> REGION APPL 92232 [place] MODALITY 6 1/> AREAS CHIROPRAC CHIROPRAC TRACTION TIC CENTE TIC CENTE MECHANICA L APPL 98694 [place] MODALITY 6 AMA 1/> AREAS CHIROPRAC ELEC TIC CENTE STIMJ UNATTENDE D CHIROPRAC 51138 [place] TIC 6 AMA MANIPULAT CHIROPRAC [place] TIC CENT[place] SPINAL 3-4 REGIONS APPL 24369 [place] MODALITY 6 AMA 1/> AREAS CHIROPRAC TIC CENTE ULTRASOUN D EA 15 MIN MANUAL 09369 [place] THERAPY 6 AMA TQS 1/> CHIROPRAC REGIONS TIC CENTE EACH 15 MINUTES THERAPEUT 56548 [place] IC PX 1/> 6 AMA AREAS CHIROPRAC EACH 15 TIC CENTE MIN EXERCISES CHIROPRAC 42683 [place] TIC 6 AMA MANIPULAT CHIROPRAC [place] TIC CENTE SPINAL 3-4 REGIONS APPL 51719 [place] MODALITY 6 AMA 1/> AREAS CHIROPRAC TIC CENTE ULTRASOUN D EA 15 MIN MANUAL 11340 [place] THERAPY 6 AMA TQS 1/> CHIROPRAC REGIONS TIC CENTE EACH 15 MINUTES CHIROPRAC 32451 [place] TIC 6 AMA MANIPLTV CHIROPRAC TX TIC CENTE EXTRASPIN AL 1/> REGION APPL 39777 [place] MODALITY 6 AMA 1/> AREAS CHIROPRAC TRACTION TIC CENTE MECHANICA L APPL 25327 [place] MODALITY 6 1/> AREAS CHIROPRAC CHIROPRAC ELEC TIC CENTE TIC CENTE STIMJ UNATTENDE D CHIROPRAC 51072 [place] TIC 6 AMA MANIPLTV CHIROPRAC TX TIC CENTE EXTRASPIN AL 1/> REGION APPL 81301 [place] MODALITY 6 1/> AREAS CHIROPRAC CHIROPRAC TRACTION TIC CENTE TIC CENTE MECHANICA L APPL 77407 [place] MODALITY 6 AMA 1/> AREAS CHIROPRAC ELEC TIC CENTE STIMJ UNATTENDE D CHIROPRAC 42522 [place] TIC 6 AMA MANIPULAT CHIROPRAC [place] TIC CENTE SPINAL 3-4 REGIONS APPL 05637 [place] MODALITY 6 AMA 1/> AREAS CHIROPRAC TIC CENTE ULTRASOUN D EA 15 MIN MANUAL 86526 [place] THERAPY 6 AMA TQS 1/> CHIROPRAC REGIONS TIC CENTE EACH 15 MINUTES CHIROPRAC 22461 [place] TIC 6 AMA MANIPULAT CHIROPRAC DOMINICK TX TIC CENTE SPINAL 3-4 REGIONS APPL 78635 [place] MODALITY 6 1/> AREAS CHIROPRAC CHIROPRAC TIC CENTE TIC CENTE ULTRASOUN D EA 15 MIN MANUAL 36580 [place] THERAPY 6 AMA TQS 1/> CHIROPRAC REGIONS TIC CENTE EACH 15 MINUTES CHIROPRAC 29935 [place] BURDICKEL PRA TIC 6 MANIPLTV CHIROPRAC TX TIC CENTE EXTRASPIN AL 1/> REGION APPL 63174 [place] MODALITY 6 AMA 1/> AREAS CHIROPRAC TRACTION TIC CENTE MECHANICA L APPL 81470 [place] MODALITY 6 AMA 1/> AREAS CHIROPRAC ELEC TIC CENTE STIMJ UNATTENDE D CHIROPRAC 58657 [place] TIC 6 AMA MANIPLTV CHIROPRAC TX TIC CENTE EXTRASPIN AL 1/> REGION APPL 67372 [place] MODALITY 6 1/> AREAS CHIROPRAC CHIROPRAC TRACTION TIC CENTE TIC CENTE MECHANICA L APPL 78531 [place] MODALITY 6 AMA 1/> AREAS CHIROPRAC ELEC TIC CENTE STIMJ UNATTENDE D CHIROPRAC 49193 [place] TIC 6 AMA MANIPULAT CHIROPRAC DOMINICK TX TIC CENTE SPINAL 3-4 REGIONS MANUAL 81386 [place] THERAPY 6 AMA TQS 1/> CHIROPRAC REGIONS TIC CENTE EACH 15 MINUTES CHIROPRAC 16678 [place] TIC 6 AMA MANIPLTV CHIROPRAC TX TIC CENTE EXTRASPIN AL 1/> REGION APPL 07971 [place] MODALITY 6 1/> AREAS CHIROPRAC CHIROPRAC TRACTION TIC CENTE TIC CENTE MECHANICA L APPL 43604 [place] MODALITY 6 AMA 1/> AREAS CHIROPRAC ELEC TIC CENTE STIMJ UNATTENDE D CHIROPRAC 97760 [place] CANTRELL TIC 6 AMA MANIPULAT CHIROPRAC [place] TIC CENTE SPINAL 3-4 REGIONS MANUAL 51799 [place] CANTRELL THERAPY 6 AMA TQS 1/> CHIROPRAC REGIONS TIC CENTE EACH 15 MINUTES CHIROPRAC 52153 [place] CANTRELL TIC 6 AMA MANIPULAT CHIROPRAC [place] TX TIC CENTE SPINAL 3-4 REGIONS MANUAL 86197 [place] CANTRELL THERAPY 6 AMA TQS 1/> CHIROPRAC REGIONS TIC CENTE EACH 15 MINUTES CHIROPRAC 03063 [place] CANTRELL TIC 6 AMA MANIPLTV CHIROPRAC TX TIC CENTE EXTRASPIN AL 1/> REGION APPL 11717 [place] CANTRELL MODALITY 6 AMA 1/> AREAS CHIROPRAC TRACTION TIC CENTE MECHANICA L APPL 82376 [place] CANTRELL MODALITY 6 AMA 1/> AREAS CHIROPRAC ELEC TIC CENTE STIMJ UNATTENDE D CHIROPRAC 63655 [place] CANTRELL TIC 6 AMA MANIPLTV CHIROPRAC TX TIC CENTE EXTRASPIN AL 1/> REGION APPL 69446 [place] CANTRELL MODALITY 6 AMA 1/> AREAS CHIROPRAC TRACTION TIC CENTE MECHANICA L APPL 27507 [place] CANTRELL MODALITY 6 AMA 1/> AREAS CHIROPRAC ELEC TIC CENTE STIMJ UNATTENDE D CHIROPRAC 01243 [place] CANTRELL TIC 6 AMA MANIPULAT CHIROPRAC DOMINICK TX TIC CENTE SPINAL 3-4 REGIONS MANUAL 77827 [place] CANTRELL THERAPY 6 AMA TQS 1/> CHIROPRAC REGIONS TIC [place]ENT[place] [address] [place] CANTRELL 1/> AREAS 6 AMA EACH 15 [place]OPR[place] [address] [place] CANTRELL 1/> AREAS 6 AMA EACH 15 CHIROPRAC MIN TIC CENTE NEUROMUSC REEDUCA CHIROPRAC 33561 [place] CANTRELL TIC 6 AMA MANIPLTV CHIROPRAC TX TIC CENTE EXTRASPIN AL 1/> REGION APPL 83816 [place] CANTRELL MODALITY 6 AMA 1/> AREAS CHIROPRAC TRACTION TIC CENTE MECHANICA L APPL 21082 [place] CANTRELL MODALITY 6 AMA 1/> AREAS CHIROPRAC ELEC TIC CENTE STIMJ UNATTENDE D CHIROPRAC 43243 EMMIE CANTRELL TIC 6 AMA MANIPULAT CHIROPRAC DOMINICK TX TIC CENTE SPINAL 3-4 REGIONS MANUAL 96704 EMMIE CANTRELL THERAPY 6 AMA TQS 1/> CHIROPRAC REGIONS TIC CENTE EACH 15 MINUTES IAADIADOO 16440 RESTORATIONISM SHANIKA 6 [facility] STREPTOCO MEDICAL CCUS GROUP GROUP A BLOOD 19637 ANTONIO ALVAREZ COUNT 6 [facility] COMPLETE INC INC AUTO&AUTO DIFRNTL WBC 25 14600 ANTONIO ALVAREZ HYDROXY 6 [facility] INCLUDES INC INC FRACTIONS IF PERFORMED CREATINE 79796 ANTONIO ALVAREZ KINASE 6 [facility] TOTAL INC INC SEDIMENTA 14881 ANTONIO ALVAREZ TION RATE 6 [facility] RBC INC INC NON-AUTOM ATED COMPREHEN 81842 ANTONIO ALVAREZ SIVE 6 [facility] [address] ANTONIO ALVAREZ THYROID 6 [facility] STIMULATI INC INC NG HORMONE TSH C-REACTIV 54557 ANTONIO ALVAREZ E PROTEIN 6 [facility] INC INC DNA 58180 ANTONIO ALVAREZ ANTIBODY 6 [facility] NUNAKAUYARMIUT/DO INC INC UBLE STRANDED COLLECTIO 81354 [facility] YOLANDE N VENOUS 6 PHYSICIAN STONE BLOOD S GROUP PA-[place] [address] ANTONIO ALVAREZ THYROXINE 6 [facility] TOTAL INC INC ANTINUCLE 75454 ANTONIO ALVAREZ AR 6 [facility] ANTIBODIE INC INC S TYSHAWN OPHTH 36876 [facility] 6 GRE GRE XM&EVAL COMPRE NEW PT 1/> VST THERAPEUT 61648 [facility] JEFFRY IC 6 PHYSICIAN HUGH PROPHYLAC S GROUP TIC/DX INJECTION SUBQ/IM INJECTION J0696 [facility] JEFFRY 6 PHYSICIAN HUGH CEFTRIAXO S GROUP NE SODIUM PER 250 MG INJECTION J1040 [facility] 6 PHYSICIAN HUGH METHYLPRE S GROUP DNISOLONE ACETATE 80 MG INJECTION J1040 [facility] 6 PHYSICIAN HUGH METHYLPRE S GROUP DNISOLONE ACETATE 80 MG INJECTION J0696 [facility] 6 PHYSICIAN HUGH CEFTRIAXO S GROUP NE SODIUM PER 250 MG THERAPEUT 71230 [facility] IC 6 PHYSICIAN HUGH PROPHYLAC S GROUP TIC/DX INJECTION SUBQ/IM INJECTION J0561 [facility] 6 [facility] N G BENZATHIN E 426698 UNITS THERAPEUT 05173 [facility] IC 6 [facility] TIC/DX INJECTION SUBQ/IM INJECTION J1100 [address] SONE SODIUM PHOSPHATE 1 [place] V 11440 [facility], PICKLESIM SURG 5 [facility] GROSS&HUGH ROSCOPIC EXAM ANESTHESI 24297 [facility] SPARROW JADEN A 5 ANESTH INTRAPERI OF THE TONEAL BLUE LOWER ABD W/LAPS NOS TOTAL 74497 [facility] SCHULSTAD ABDOMINAL 5 PHYSICIAN CAM S GROUP HYSTERECT W/WO RMVL TUBE OVARY COLLECTIO 06731 ANTONIO ALVAREZ N VENOUS 5 [facility] BLOOD INC INC VENIPUNCT URE SMR PRIM 59106 ROSIBEL ROMAN SRC WET 5 JESSIE MEDLEY NFCT AGT CULTURE 21623 ANTONIO ALVAREZ BACTERIAL 5 [facility] INC INC QUANTTATI VE COLONY COUNT URINE URNLS DIP 01520 ANTONIO ALVAREZ 5 [facility] STICK/TAB INC INC LET REAGENT AUTO MICROSCOP Y GONADOTRO 21988 ANTONIO ALVAREZ PIN 5 [facility] CHORIONIC INC INC QUALITATI VE BLOOD 64696 ANTONIO ALVAREZ COUNT 5 [facility] COMPLETE INC INC AUTO&AUTO DIFRNTL WBC SUSCEPTIB 70320 ANTONIO ALVAREZ LTY STDY 5 [facility] ANTIMICRB INC INC IAL MICRO/[place] [address] ANTONIO ALVAREZ TRANSVAGI 5 [facility] NAL INC INC URINLS 62214 ROSIBEL ROMAN DIP 5 JESSIE BOTELLO SHASTA STICK/TAB LET REAGNT NON-AUTO MICRSCPY CHIROPRAC 22255 EMMIE SALEEM TIC 5 GAR MANIPULAT CHIROPRAC DOMINICK TX TIC CENTE SPINAL 1-2 REGIONS CHIROPRAC 36570 EMMIE SALEEM TIC 5 GAR MANIPLTV CHIROPRAC TX TIC CENTE EXTRASPIN AL 1/> REGION APPL 86073 EMMIE SALEEM MODALITY 5 GAR 1/> AREAS [place]IROPRAC [place] [address] EMMIE HARPER 1/> AREAS 5 GAR EACH 15 CHIROPRAC [place] [address] CYNCUATE SALEEM 1/> AREAS 5 GAR EACH 15 CHIROPRAC MIN TIC CENTE NEUROMUSC REEDUCA CHIROPRAC 21036 EMMIE SALEEM TIC 5 GAR MANIPULAT CHIROPRAC DOMINICK TX TIC CENTE SPINAL 1-2 REGIONS CHIROPRAC 79486 EMMIE SALEEM TIC 5 GAR MANIPLTV CHIROPRAC TX TIC CENTE EXTRASPIN AL 1/> [place] [address] CYNCUATE SALEEM 1/> AREAS 5 GAR EACH 15 CHIROPRAC [place] [address] CYNCUATE SALEEM 1/> AREAS 5 GAR EACH 15 CHIROPRAC MINUTES TIC CENTE MASSAGE CHIROPRAC 58076 EMMIE SALEEM TIC 5 GAR MANIPULAT CHIROPRAC DOMINICK TX TIC CENTE SPINAL 1-[place] [address] EMMIE SALEEM 1/> AREAS 5 GAR EACH 15 CHIROPRAC MIN TIC CENTE NEUROMUSC REEDUCA URNLS DIP 39814 ANTONIO BELTRAN 5 [facility] STICK/[facility] LET RGNT NON-AUTO W/O MICRSCP COLLECTIO 47824 ANTONIO ALVAREZ N VENOUS 5 [facility] BLOOD INC INC VENIPUNCT URE COMPREHEN 59529 ANTONIO ALVAREZ SIVE 5 [facility] METABOLIC INC INC PANEL URNLS DIP 86406 ANTONIO ALVAREZ 5 [facility] STICK/TAB INC INC LET REAGENT AUTO MICROSCOP Y BLOOD 58075 ANTONIO ALVAREZ COUNT 5 [facility] COMPLETE INC INC AUTO&AUTO DIFRNTL WBC URNLS DIP 49736 ANTONIO ALVAREZ 5 [facility] STICK/TAB INC INC LET REAGENT AUTO MICROSCOP Y BLOOD 56028 ANTONIO ALVAREZ COUNT 5 [facility] COMPLETE INC INC AUTO&AUTO DIFRNTL WBC COMPREHEN 95023 ANTONIO ALVAREZ SIVE 5 [facility] [place] [address] [facility] ABDOMEN & 5 MEDICAL ARELY PELVIS IMAGING W/O ASS CONTRAST MATERIAL IMMUNOASS 16402 ANTONIO ALVAREZ AY NFCT 5 [facility] AGT ANTB INC INC QUAL/SEMI ANGIE 1 STEP UNCLASSIF J3490 ANTONIO ANTONIO IED DRUGS 5 [facility] INC INC COMPREHEN 24186 ANTONIO ALVAREZ SIVE 5 [facility] [place] [address] ANTONIODIAZ ALVAREZ INFUSION 5 [facility] THERAPY/P INC INC ROPHYLAXI S /DX 1ST TO 1 HR BLOOD 30466 ANTONIO ALVAREZ COUNT 5 [facility] COMPLETE INC INC AUTO&AUTO DIFRNTL WBC HGB 92335 ROSIBEL ROMAN QUANTITAT 5 JESSIE VEGAS DOMINICK TRANSCUTA NEOUS SMR PRIM 36972 ROSIBEL ROMAN SRC WET 5 JESSIE VEGAS [facility] [place] [address] [facility], [facility], SURG 5 [facility] PATHOLOGY GROSS&HUGH ROSCOPIC EXAM ANESTHESI 39422 [facility] SAVANNA A VAGINAL 5 ANESTH LUCERO OF THE PROCEDURE BLUE W/BIOPSY NOS BLOOD 47939 ANTONIODIAZ UGARTEON COUNT 5 [facility] HEMOGLOBI INC INC N UNCLASSIF J3490 ANTONIO ALVAREZ IED DRUGS 5 [place] [address] ANTONIODIAZ ALVAREZ INFUSION 5 [facility] THERAPY INC INC PROPHYLAX IS/DX EA HOUR INJECTION J2405 ANTONIO ANTONIO 5 [facility] ONDANSETR INC INC ON HCL PER 1 MG COLLECTIO 61689 ANTONIO ALVAREZ N VENOUS 5 [facility] BLOOD INC INC VENIPUNCT URE BLOOD 21767 ANTONIO ALVAREZ COUNT 5 [facility] HEMATOCRI INC INC T DILATION 70527 ANTONIO ALVAREZ & 5 [facility] CURETTAGE INC INC DX&/THER NONOBSTET JACQUI URNLS DIP 00681 ANTONIO ALVAREZ 5 [facility] STICK/TAB INC INC LET REAGENT AUTO MICROSCOP Y BLOOD 43798 ANTONIO ALVAREZ COUNT 5 [facility] COMPLETE INC INC AUTO&AUTO DIFRNTL WBC URINE 62673 ANTONIO ALVAREZ 5 [facility] TEST INC INC VISUAL COLOR CMPRSN METHS CULTURE 82479 ANTONIO ALVAREZ BACTERIAL 5 [facility] INC INC QUANTTATI VE COLONY COUNT URINE COLLECTIO 47076 ANTONIO ALVAREZ N VENOUS 5 [facility] BLOOD INC INC VENIPUNCT URE COLLECTIO 35093 ANTONIO ALVAREZ N VENOUS 5 [facility] [place] [address] [facility] TRANSVAGI 5 MEDICAL HARINDER NAL IMAGING ASS BLOOD 01112 ANTONIO ALVAREZ COUNT 5 [facility] COMPLETE INC INC AUTO&AUTO DIFRNTL WBC COMPUTER- 78800 ANTONIO ALVAREZ AIDED 5 [facility] DETECTION INC INC SCREENING MAMMOGRAP HY SCREENING G0202 ANTONIO ALVAREZ 5 [facility] MAMMOGRAP INC INC HY MICHELE INCL CAD WHEN PERFORMD Encounters Encounter Start End Date Code Location Performer Type Date OFFICE 07208 [facility] OUTPATIEN 7 7 PHYSICIAN T VISIT S GROUP 25 MINUTES OFFICE 86718 [facility] OUTPATIEN 6 6 PHYSICIAN T VISIT S GROUP 15 MINUTES OFFICE 32012 [facility] [place] OUTPATIEN 6 6 PHYSICIAN T VISIT S GROUP 15 MINUTES [facility]OSPITAL ANTONIO - 6 6 [facility] OUTPATI[facility] INC T PERIODIC 47673 [facility] [place] PREVENTIV 6 6 PHYSICIAN SHASTA E MED EST S GROUP PATIENT 40-64YRS OFFICE 08631 [facility] [place] OUTPATIEN 6 6 PHYSICIAN EUG T VISIT S GROUP 15 MINUTES HOSPITAL ANTONIO - 6 6 [facility] OUTPAT[facility] INC T OFFICE 62996 [facility] [place] OUTPATIEN 6 6 PHYSICIAN T NEW 30 S GROUP MINUTES HOSPITAL ANTONIO - 6 6 [facility] OUTPATI[facility] INC T OFFICE 70673 [facility] [place] OUTPATIEN 6 6 PHYSICIAN EUG T VISIT S GROUP 15 MINUTES OFFICE 50179 [facility] [place] OUTPATIEN 6 6 PHYSICIAN T VISIT GROUP 25 MINUTES OFFICE 97097 [place] T[place] OUTPATIEN 6 6 AMA T VISIT [facility]IROPRAC 15 TIC CENTE MINUTES OFFICE 93916 [facility] [place] OUTPATIEN 6 6 PHYSICIAN T VISIT GROUP 15 MINUTES [facility]ERGENCY 63042 [facility] DEPARTMEN S, PLL[facility] T VISIT MODERATE SEVERITY [facility]OSPITAL ANTONIO - 6 6 [facility] OUTPATIEN INC T EMERGENCY 26423 ANTONIO 6 6 [facility] DEPARTMEN INC T VISIT LOW/MODER SEVERITY OFFICE 73604 EMMIE CANTRELL OUTPATIEN 6 6 AMA T VISIT [facility]IROP[facility] 15 TIC CENTE MINUTES OFFICE 83414 ANTONIO GERMANETT OUTPATIEN 6 6 [facility] 25 MINUTES OFFICE 95368 RESTORATIONISM SHANIKA OUTPATIEN 6 6 [facility]ALTH [facility] T VISIT MEDICAL 15 GROUP MINUTES OFFICE 48940 [facility] YOLANDE OUTPATIEN 6 6 PHYSICIAN STONE T VISIT S GROUP PA-C CORBIN 25 MINUTES HOSPITAL ANTONIO - 6 6 [facility] OUTPATIEN INC T OFFICE 13803 ROSIBEL ROMAN OUTPATIEN 6 6 JESSIE BOTELLO SHASTA T VISIT 15 MINUTES OFFICE 92872 [facility] JEFFRY OUTPATIEN 6 6 PHYSICIAN HUGH T VISIT S GROUP 15 MINUTES OFFICE 69687 [facility] JEFFRY OUTPATIEN 6 6 PHYSICIAN HUGH T VISIT S GROUP 15 MINUTES OFFICE 77816 ANTONIO EASLEY OUTPATIEN 6 6 [facility] VISIT [facility] 15 MINUTES HOSPITAL ANTONIO - 5 6 [facility] INPATIENT [facility] ANTONIO - 5 5 [facility] OUTPATIEN INC T OFFICE 20681 ROSIBEL ROMAN OUTPATIEN 5 5 JESSIE BOTELLO SHASTA T VISIT 15 MINUTES HOSPITAL ANTONIO - 5 5 [facility] OUTPATIEN INC T OFFICE 35085 ROSIBEL ROMAN OUTPATIEN 5 5 JESSIE BOTELLO SHASTA T VISIT 25 MINUTES OFFICE 80296 EMMIE SALEEM OUTPATIEN 5 5 [facility] T VISIT [facility] 10 TIC CENTE MINUTES OFFICE 99509 ANTONIO BELTRAN OUTPATIEN 5 5 [facility] VISIT [facility] 15 MINUTES HOSPITAL ANTONIO - 5 5 [facility] OUTPATIEN INC T EMERGENCY 01622 ALYSIA TERAN 5 5 PHYSICIAN HUGH DEPARTMEN S, [facility] T VISIT HIGH/URGE NT SEVERITY HOSPITAL ANTONIO - 5 5 [facility] OUTPATIEN INC T EMERGENCY 56198 ANTONIO 5 5 [facility] DEPARTMEN INC T VISIT MODERATE SEVERITY EMERGENCY 85291 ANTONIO 5 5 [facility] DEPARTMEN INC T VISIT HIGH/URGE NT SEVERITY HOSPITAL ANTONIO - 5 5 [facility] OUTPATIEN INC T EMERGENCY 11063 ANTONIO Apodaca 5 5 [facility] T VISIT P MODERATE SEVERITY OFFICE 16152 ROSIBEL ROSALESPATIEN 5 5 JESSIE VEGAS T VISIT 15 MINUTES HOSPITAL ANTONIO - 5 5 [facility] OUTPATIEN [facility] ANTONIO - 5 5 [facility] OUTPATIEN INC T OFFICE 60771 ROSIBEL ROMAN OUTPATIEN 5 5 JESSIE VEGAS T VISIT 15 MINUTES OFFICE 89029 ROSIBEL ROMAN OUTPATIEN 5 5 JESSIE VEGAS T VISIT 15 MINUTES HOSPITAL ANTONIO - 5 5 [facility] OUTPATIEN [facility] T OFFICE 70755 ROSIBEL ROMAN OUTPATIEN 5 5 JESSIE VEGAS T VISIT 15 MINUTES HOSPITAL ANTONIO - 5 5 [facility] OUTPATIEN INC T
--- OUTSIDE RECORDS SUMMARY | 2016-10-10 20:16 | External Medical Summary Rpt ---
Author Author , Organization [employer] Address Unknown Phone Unavailable Care Team Providers Care Clerk Rating Name Role Phone [facility] Unavailable Unavailable MEDICAL GROUP, [facility] BEINEKE HARINDER, BEINEKE Unavailable Unavailable [...] Unavailable JESSIE LOPEZ MD Unavailable Unavailable [facility] Unavailable Unavailable INC, [facility] Unavailable Unavailable HOSPITAL, [facility] Unavailable Unavailable HOSPITAL P, [facility]PITAL P [facility], Unavailable Unavailable [facility] CANTRELL AMA, CANTRELL Unavailable Unavailable [facility]MA [facility], [facility], Unavailable Unavailable [...] 2016 Problems Code Diagnosis DOS Provider Status [id number] PAIN IN 07-10-2016 [place] RIGHT [facility]IROP[facility]CTI SHOULDER [...] SOMATIC CHIROPRACTI DYSFUNCTION C CENTE LOWER EXTREMITY [id number] ACUTE 06-29-2016 [facility] SUPPURATIVE PHYSICIANS OM W/O GROUP RUPT EAR DRUM RT EAR R109 UNSPECIFIED 06-29-2016 [facility] ABDOMINAL PHYSICIANS PAIN GROUP J40 BRONCHITIS 05-25-2016 [facility] NOT PHYSICIANS SPECIFIED GROUP ACUTE OR CHRONIC J0100 ACUTE 05-22-2016 [facility] MAXILLARY PHYSICIANS SINUSITIS GROUP UNSPECIFIED Z1231 ENCOUNTER 05-01-2016 [place] [facility]CRE[facility] MAMMO MALIG IMAGING ASS NEOPLASM BREAST N951 MENOPAUSAL 04-25-2016 [facility] AND FEMALE PHYSICIANS CLIMACTERIC GROUP STATES [id number] 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[facility] ELECTRONIC ORGAN TECHNICIAN EXAM PHYSICIANS GENERAL RTN GROUP W/O ABNORMAL FIND Z1212 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[facility] SCREENING PHYSICIANS MALIGNANT GROUP NEOPLASM RECTUM J0390 ACUTE 04-13-2016 [facility] TONSILLITIS PHYSICIANS GROUP UNSPECIFIED M542 CERVICALGIA 03-30-2016 [place] CHIROP[facility] C CENTE [id number] SPRAIN 03-30-2016 [place] LIGAMENTS CHIROPRACTI LUMBAR C CENTE SPINE INITIAL ENCOUNTER [id number] STRAIN 03-30-2016 [place] MUSCLE CHIROPRACTI FASCIA & C CENTE TENDON LOW BACK INITIAL Z80885 PAIN IN 03-28-2016 [place] [facility] M7989 OTHER 03-28-2016 [place] SPECIFIED MEDICAL SOFT TISSUE IMAGING ASS DISORDERS 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 M654 RADIAL 03-15-2016 [facility] STYLOID PHYSICIANS TENOSYNOVIT GROUP IS DE QUERVAIN B36618 GANGLION 03-15-2016 [facility] RIGHT WRIST PHYSICIANS GROUP X74006 GANGLION 03-15-2016 [facility] LEFT WRIST PHYSICIANS GROUP J029 ACUTE 03-07-2016 [facility] PHARYNGITIS PHYSICIANS GROUP UNSPECIFIED P93711 PAIN IN 03-07-2016 [place] LEFT WRIST MEDICAL IMAGING ASS R68752 GANGLION 03-07-2016 [facility] RIGHT HAND PHYSICIANS GROUP [id number] GANGLION 03-07-2016 [facility] LEFT HAND PHYSICIANS GROUP J87797 PAIN IN 03-07-2016 [place] [facility] M9903 SEGMENTAL & 01-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 HYPERTENSIO INC N K1120 SIALOADENIT 01-04-2016 [place] [facility], UNSPECIFIED PLLC K1121 ACUTE 01-04-2016 [place] [facility] IS INC J329 CHRONIC 12-27-[address] [place] [address] [facility] J0140 ACUTE 11-22-2015 [facility] S MEDICAL UNSPECIFIED GROUP H6980 OTHER SPEC 11-09-2015 [facility] DISORDERS PHYSICIANS EUSTACHIAN GROUP TUBE UNS EAR A15823 UNSPECIFIED 11-09-2015 [facility] ASTHMA PHYSICIANS UNCOMPLICAT GROUP ED R5383 OTHER 11-09-2015 [facility] FATIGUE PHYSICIANS GROUP Z840 FAMILY 11-09-2015 [facility] HISTORY PHYSICIANS DISEASES GROUP SKIN & SUBQ TISSUE Z0100 ENCOUNTER 11-04-2015 [place] EXAM EYES & GRE VISION W/O ABNORMAL FIND H6690 OTITIS 09-22-2015 [facility] MEDIA PHYSICIANS UNSPECIFIED GROUP UNSPECIFIED EAR J040 ACUTE 09-22-2015 [facility] LARYNGITIS PHYSICIANS GROUP [id number] OTHER ACUTE 09-12-2015 [facility] DOMINICK OM RECURRENT BILAT J0190 ACUTE 09-12-[address] [place] [address] [facility] J209 ACUTE 09-12-[address] [place] [address] [facility] D259 LEIOMYOMA 06-03-2015 [facility] UNSPECIFIED K660 PERITONEAL 06-03-2015 [place] ADHESIONS [facility] POSTPROC INC POSTINFECTI ON N736 FEMALE 06-03-2015 [facility] PELVIC PHYSICIANS PERITONEAL GROUP ADHESIONS POSTINFECTI VE N800 ENDOMETRIOS 06-03-2015 [facility] IS OF [facility] UTERUS N831 CORPUS 06-03-2015 [facility] LUTEUM [facility]ST [facility] N8320 UNSPECIFIED 06-03-2015 [facility] OVARIAN PHYSICIANS CYSTS GROUP N856 INTRAUTERIN 06-03-2015 [facility] E [facility]NECH[facility] N938 OTHER SPEC 06-03-2015 [facility] ABNORMAL PHYSICIANS UTERINE & GROUP VAGINAL BLEEDING R102 PELVIC AND 06-03-2015 [facility] PAIN INC B9689 OTH SPEC 05-24-2015 [facility] C[facility]all[facility] BACTERIAL JESSIE BOTELLO AGNT CAUSE DZ CLASSIFIED ELSW N760 ACUTE 05-24-2015 [facility] Ceballos VAGINIXENA ROMAN MD B99486 ENCOUNTER 05-24-2015 [facility] FOR OTHER [facility] PREPROCEDUR INC AL EXAMINATION N852 HYPERTROPHY 05-10-2015 [place] [facility] N9489 OTH COND 05-04-2015 [facility] ASSOC W/FE JESSIE BOTELLO GEN ORGN & MENSTRUAL CYCL 4019 UNSPECIFIED 02-03-2015 [facility] N 89397 ASTHMA, 02-03-2015 [place] UNSPECIFIED [facility] UNSPECIFIED STATUS 5990 URINARY 02-03-2015 [facility] INFECTION HOSPITAL SITE NOT SPECIFIED 90345 ABDOMINAL 01-05-2015 [facility] PAIN OTHER [facility] SPECIFIED INC SITE 95188 OTHER 11-03-2014 [place] SPECIFIED MEDICAL DISORDER OF IMAGING ASS KIDNEY AND URETER 46968 ABDOMINAL 11-03-2014 [facility] PAIN RIGHT [facility] UPPER INC QUADRANT V1301 PERSONAL 11-03-2014 [facility] HISTORY OF [facility] URINARY INC CALCULI 462 ACUTE 10-07-2014 [place] PHARYNGITIS [facility] P 06067 ACUTE 10-07-2014 [place] LARYNGITIS, [facility] P MENTION OF OBSTRUCTIO 57458 UNSPECIFIED 09-14-2014 [facility] Ceballos VAGINIXENA ROMAN MD [...] NO 00 2- 7- 00 01 ve AR 52 20 20 16 AI IL 00 [...] MG #3 TA 93 [address] 8 ET AR 59 01 02 10 5 00 RI [...] NO 00 5- 0- 00 01 ve AR 52 20 20 16 AI IL 00 [...] MG #3 93 TA 8 BL ET AR 00 12 01 20 10 00 RI Ac OM 60 -2 -2 0. 00 TE ti ET 31 2- 0- 00 01 ve RAMIRES 58 20 20 0 16 AI ZI 65 16 17 36 D NE 4 14 PH -D AR M MA SY CY RU P #3 93 8 AR 00 12 01 10 5 00 RI [...] NO 00 5- 3- 00 01 ve AR 52 20 20 16 AI IL 00 16 17 26 D -H [address] AR Z MA 20 CY -2 5 #3 MG 93 8 TA B Procedures Procedure DOS Code Location Performer Comment CH[facility]OP[facility]AC 55261 [place] [facility] TIC 7 MANIPULAT CH[facility]OP[facility] [place] TIC CENTE SPINAL 1-2 REGIONS MANUAL 05158 [place] [facility] THERAPY 7 TQS 1/> [facility] REGIONS TIC CENTE EACH 15 MINUTES URNLS DIP 31017 [facility] 7 PHYSICIAN PHYSICIAN STICK/TAB S GROUP S GROUP LET RGNT NON-AUTO W/O MICRSCP THERAPEUT 00655 [facility] STONE IC 7 PHYSICIAN PROPHYLAC S GROUP TIC/DX INJECTION SUBQ/IM INJECTION J0696 [facility] STONE 7 PHYSICIAN CEFTRIAXO S GROUP NE SODIUM PER 250 MG INJECTION J0696 [facility] STONE 6 PHYSICIAN CEFTRIAXO S GROUP NE SODIUM PER 250 MG THERAPEUT 52693 [facility] STONE IC 6 PHYSICIAN PROPHYLAC S GROUP TIC/DX INJECTION SUBQ/IM THERAPEUT 50756 [facility] FRYMAN IC 6 PHYSICIAN PROPHYLAC S GROUP TIC/DX INJECTION SUBQ/IM INJECTION J0696 [facility] FRYMAN 6 PHYSICIAN CEFTRIAXO S GROUP NE SODIUM PER 250 MG SCREENING G0202 [facility] 6 [facility] MAMMOGRAP INC INC HY MICHELE INCL CAD WHEN PERFORMD COMPUTER- 74873 [facility] ALVAREZ AIDED 6 [facility] DETECTION INC INC SCREENING MAMMOGRAP HY CULTURE 93277 [facility] HARPEL CHLAMYDIA 6 PHYSICIAN SHASTA ANY S GROUP SOURCE IADNA 52192 BIO BIO CHLAMYDIA 6 REFERNCE REFERNCE 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 TRACHOMAT IES IES IS AMPLIFIED PROBE TQ URINLS 71872 [facility] HARPEL DIP 6 PHYSICIAN SHASTA STICK/TAB S GROUP LET REAGNT NON-AUTO MICRSCPY IADNA 07739 [facility] NEISSERIA 6 PHYSICIAN PHYSICIAN S GROUP S GROUP GONORRHOE AE DIRECT PROBE TQ CYTP C/V 98085 BIO BIO AUTO THIN 6 REFERNCE REFERNCE LYR LABORATOR LABORATOR PREPJ SCR IES IES MNL RESCR PHYS IADNA 51712 BIO BIO NEISSERIA 6 REFERNCE REFERNCE LABORATOR LABORATOR GONORRHOE IES IES AE AMPLIFIED PROBE TQ IADNA NOS 30631 BIO BIO 6 REFERNCE REFERNCE AMPLIFIED LABORATOR LABORATOR PROBE TQ IES IES EACH ORGANISM IADNA 60152 BIO BIO TRICHOMON 6 REFERNCE REFERNCE LABORATOR LABORATOR VAGINALIS IES IES AMPLIFIED PROBE TECH THERAPEUT 37489 [facility] FRYMAN IC 6 PHYSICIAN EUG PROPHYLAC S GROUP TIC/DX INJECTION SUBQ/IM INJECTION J0696 [facility] FRYMAN 6 PHYSICIAN EUG CEFTRIAXO S GROUP NE SODIUM PER 250 MG CHIROPRAC 93219 [place] CANTRELL TIC 6 AMA MANIPULAT CHIROPRAC DOM[place] TX TIC CENTE SPINAL 3-4 REGIONS MANUAL 08551 [place] CANTRELL THERAPY 6 AMA TQS 1/> CHIROPRAC REGIONS TIC CENTE EACH 15 MINUTES CHIROPRAC 90253 [place] CANTRELL TIC 6 AMA MANIPLTV CHIROPRAC TX TIC CENTE EXTRASPIN AL 1/> REGION MRI UPPER 05768 [place] JACOB 6 MEDICAL EXTREMITY IMAGING OTH THAN ASS JT W/O CONTR MATRL APPL 00716 [place] CANTRELL MODALITY 6 AMA 1/> AREAS CHIROPRAC ELEC TIC CENTE STIMJ UNATTENDE D CHIROPRAC 94936 [place] CANTRELL TIC 6 AMA MANIPULAT CHIROPRAC DOM[place] TX TIC CENTE SPINAL 3-4 REGIONS APPL 27936 [place] CANTRELL MODALITY 6 AMA 1/> AREAS CHIROPRAC TIC CENTE ULTRASOUN D EA 15 MIN MANUAL 84830 [place] CANTRELL THERAPY 6 AMA TQS 1/> [facility] REGIONS TIC CENTE EACH 15 MINUTES THERAPEUT 41774 [facility] IC 6 PHYSICIAN PHYSICIAN PROPHYLAC S GROUP S GROUP TIC/DX INJECTION SUBQ/IM RADEX 78347 [place] MAZARIEGOS ALL HAND 2 6 MEDICAL VIEWS IMAGING ASS RADEX 42002 [place] MAZARIEGOS ALL WRIST 2 6 MEDICAL VIEWS IMAGING ASS APPL 86522 [place] CANTRELL MODALITY 6 AMA 1/> AREAS CHIROPRAC ELEC TIC CENTE STIMJ UNATTENDE D CHIROPRAC 76710 [place] CANTRELL TIC 6 AMA MANIPULAT CHIROPRAC DOMIN[place] TX TIC CENTE SPINAL 3-4 REGIONS APPL 42461 [place] CANTRELL MODALITY 6 AMA 1/> AREAS CHIROPRAC TIC CENTE ULTRASOUN D EA 15 MIN MANUAL 60238 [place] CANTRELL THERAPY 6 AMA TQS 1/> CHIROPRAC REGIONS TIC CENTE EACH 15 MINUTES CHIROPRAC 71145 [place] CANTRELL TIC 6 AMA MANIPULAT CHIROPRAC DOMIN[place] TX TIC CENTE SPINAL 3-4 REGIONS APPL 53851 [place] CANTRELL MODALITY 6 AMA 1/> AREAS CHIROPRAC TIC CENTE ULTRASOUN D EA 15 MIN MANUAL 41566 [place] CANTRELL THERAPY 6 AMA TQS 1/> CHIROPRAC REGIONS TIC CENTE EACH 15 MINUTES APPL 24872 [place] CANTRELL MODALITY 6 AMA 1/> AREAS CHIROPRAC ELEC TIC CENTE STIMJ UNATTENDE D APPL 72998 [place] CANTRELL MODALITY 6 AMA 1/> AREAS CHIROPRAC ELEC TIC CENTE STIMJ UNATTENDE D CHIROPRAC 60398 [place] CANTRELL TIC 6 AMA MANIPULAT CHIROPRAC DOMIN[place] TX TIC CENTE SPINAL 3-4 REGIONS APPL 11311 [place] CANTRELL MODALITY 6 AMA 1/> AREAS CHIROPRAC TIC CENTE ULTRASOUN D EA 15 MIN MANUAL 40560 [place] CANTRELL THERAPY 6 AMA TQS 1/> CHIROPRAC REGIONS TIC CENTE EACH 15 MINUTES CHIROPRAC 63564 [place] CANTRELL TIC 6 AMA MANIPULAT CHIROPRAC DOMIN[place] TX TIC CENTE SPINAL 3-4 REGIONS APPL 82908 [place] CANTRELL MODALITY 6 AMA 1/> AREAS CHIROPRAC TIC CENTE ULTRASOUN D EA 15 MIN MANUAL 16456 [place] CANTRELL THERAPY 6 AMA TQS 1/> CHIROPRAC REGIONS TIC CENTE EACH 15 MINUTES APPL 55777 [place] CANTRELL MODALITY 6 AMA 1/> AREAS CHIROPRAC ELEC TIC CENTE STIMJ UNATTENDE D APPL 76931 [place] CANTRELL MODALITY 6 AMA 1/> AREAS CHIROPRAC ELEC TIC CENTE STIMJ UNATTENDE D CHIROPRAC 78456 [place] CANTRELL TIC 6 AMA MANIPULAT CHIROPRAC DOMIN[place] TX TIC CENTE SPINAL 3-4 REGIONS APPL 35074 [place] CANTRELL MODALITY 6 AMA 1/> AREAS CHIROPRAC TIC CENTE ULTRASOUN D EA 15 MIN MANUAL 43586 [place] CANTRELL THERAPY 6 AMA TQS 1/> CHIROPRAC REGIONS TIC CENTE EACH 15 MINUTES CHIROPRAC 03235 [place] CANTRELL TIC 6 AMA MANIPLTV CHIROPRAC TX TIC CENTE EXTRASPIN AL 1/> REGION APPL 93572 [place] CANTRELL MODALITY 6 AMA 1/> AREAS CHIROPRAC ELEC TIC CENTE STIMJ UNATTENDE D CHIROPRAC 69423 [place] CANTRELL TIC 6 AMA MANIPULAT CHIROPRAC DOMIN[place] TX TIC CENTE SPINAL 3-4 REGIONS APPL 07205 [place] CANTRELL MODALITY 6 AMA 1/> AREAS CHIROPRAC TIC CENTE ULTRASOUN D EA 15 MIN MANUAL 77421 [place] CANTRELL THERAPY 6 AMA TQS 1/> CHIROPRAC REGIONS TIC CENTE EACH 15 MINUTES THERAPEUT 90186 [place] CANTRELL IC PX 1/> 6 AMA AREAS CHIROPRAC EACH 15 TIC CENTE MIN EXERCISES CHIROPRAC 70394 [place] CANTRELL TIC 6 AMA MANIPLTV CHIROPRAC TX TIC CENTE EXTRASPIN AL 1/> REGION APPL 83532 [place] CANTRELL MODALITY 6 AMA 1/> AREAS CHIROPRAC TRACTION TIC CENTE MECHANICA L APPL 15426 [place] CANTRELL MODALITY 6 AMA 1/> AREAS CHIROPRAC ELEC TIC CENTE STIMJ UNATTENDE D MANUAL 84773 [place] CANTRELL THERAPY 6 AMA TQS 1/> CHIROPRAC REGIONS TIC CENTE EACH 15 MINUTES CHIROPRAC 34328 [place] CANTRELL TIC 6 AMA MANIPULAT CHIROPRAC DOMIN[place] TX TIC CENTE SPINAL 3-4 REGIONS APPL 54635 [place] CANTRELL MODALITY 6 AMA 1/> AREAS CHIROPRAC TIC CENTE ULTRASOUN D EA 15 MIN CHIROPRAC 94964 [place] CANTRELL TIC 6 AMA MANIPLTV CHIROPRAC TX TIC CENTE EXTRASPIN AL 1/> REGION APPL 96804 [place] CANTRELL MODALITY 6 AMA 1/> AREAS CHIROPRAC TRACTION TIC CENTE MECHANICA L APPL 33151 [place] CANTRELL MODALITY 6 AMA 1/> AREAS CHIROPRAC ELEC TIC CENTE STIMJ UNATTENDE D CHIROPRAC 38092 [place] CANTRELL TIC 6 AMA MANIPULAT CHIROPRAC DOMIN[place] TX TIC CENTE SPINAL 3-4 REGIONS APPL 52331 [place] CANTRELL MODALITY 6 AMA 1/> AREAS CHIROPRAC TIC CENTE ULTRASOUN D EA 15 MIN MANUAL 94804 [place] CANTRELL THERAPY 6 AMA TQS 1/> CHIROPRAC REGIONS TIC CENTE EACH 15 MINUTES CHIROPRAC 00824 [place] CANTRELL TIC 6 AMA MANIPULAT CHIROPRAC DOMIN[place] TX TIC CENTE SPINAL 3-4 REGIONS APPL 40991 [place] CANTRELL MODALITY 6 AMA 1/> AREAS CHIROPRAC TIC CENTE ULTRASOUN D EA 15 MIN MANUAL 56793 [place] CANTRELL THERAPY 6 AMA TQS 1/> CHIROPRAC REGIONS TIC CENTE EACH 15 MINUTES CHIROPRAC 45968 [place] CANTRELL TIC 6 AMA MANIPLTV CHIROPRAC TX TIC CENTE EXTRASPIN AL 1/> REGION APPL 29253 [place] CANTRELL MODALITY 6 AMA 1/> AREAS CHIROPRAC TRACTION TIC CENTE MECHANICA L APPL 58399 [place] CANTRELL MODALITY 6 AMA 1/> AREAS CHIROPRAC ELEC TIC CENTE STIMJ UNATTENDE D CHIROPRAC 05574 [place] CANTRELL TIC 6 AMA MANIPLTV CHIROPRAC TX TIC CENTE EXTRASPIN AL 1/> REGION APPL 02136 [place] CANTRELL MODALITY 6 AMA 1/> AREAS CHIROPRAC TRACTION TIC CENTE MECHANICA L APPL 36656 [place] CANTRELL MODALITY 6 AMA 1/> AREAS CHIROPRAC ELEC TIC CENTE STIMJ UNATTENDE D CHIROPRAC 04417 [place] CANTRELL TIC 6 AMA MANIPULAT CHIROPRAC DOMIN[place] TX TIC CENTE SPINAL 3-4 REGIONS APPL 70926 [place] CANTRELL MODALITY 6 AMA 1/> AREAS CHIROPRAC TIC CENTE ULTRASOUN D EA 15 MIN MANUAL 11497 [place] CANTRELL THERAPY 6 AMA TQS 1/> CHIROPRAC REGIONS TIC CENTE EACH 15 MINUTES CHIROPRAC 55187 [place] CANTRELL TIC 6 AMA MANIPULAT CHIROPRAC DOMIN[place] TX TIC CENTE SPINAL 3-4 REGIONS APPL 48071 [place] CANTRELL MODALITY 6 AMA 1/> AREAS CHIROPRAC TIC CENTE ULTRASOUN D EA 15 MIN MANUAL 10908 [place] CANTRELL THERAPY 6 AMA TQS 1/> CHIROPRAC REGIONS TIC CENTE EACH 15 MINUTES CHIROPRAC 03542 [place] CANTRELL TIC 6 AMA MANIPLTV CHIROPRAC TX TIC CENTE EXTRASPIN AL 1/> REGION RADEX 95030 [place] CANTRELL SPINE 6 AMA LUMBOSACR CHIROPRAC AL 2/3 TIC CENTE VIEWS APPL 00461 [place] CANTRELL MODALITY 6 AMA 1/> AREAS CHIROPRAC TRACTION TIC CENTE MECHANICA L APPL 90787 [place] CANTRELL MODALITY 6 AMA 1/> AREAS CHIROPRAC ELEC TIC CENTE STIMJ UNATTENDE D APPL 48889 [place] CANTRELL MODALITY 6 AMA 1/> AREAS CHIROPRAC ELEC TIC CENTE STIMJ UNATTENDE D APPL 95155 [place] CANTRELL MODALITY 6 AMA 1/> AREAS CHIROPRAC TRACTION TIC CENTE MECHANICA L CHIROPRAC 64554 [place] CANTRELL TIC 6 AMA MANIPLTV CHIROPRAC TX TIC CENTE EXTRASPIN AL 1/> REGION MANUAL 97415 [place] CANTRELL THERAPY 6 AMA TQS 1/> CHIROPRAC REGIONS TIC CENTE EACH 15 MINUTES APPL 49904 [place] CANTRELL MODALITY 6 AMA 1/> AREAS CHIROPRAC TIC CENTE ULTRASOUN D EA 15 MIN CHIROPRAC 65545 [place] CANT[place]LL TIC 6 AMA MANIPULAT CHIROPRAC DOMIN[place] TX TIC CENTE SPINAL 3-4 REGIONS CHIROPRAC 02099 [place] CANTRELL TIC 6 AMA MANIPULAT CHIROPRAC DOMIN[place] TX TIC CENTE SPINAL 3-4 REGIONS APPL 30095 [place] CANTRELL MODALITY 6 AMA 1/> AREAS CHIROPRAC TIC CENTE ULTRASOUN D EA 15 MIN MANUAL 20863 [place] CANTRELL THERAPY 6 AMA TQS 1/> CHIROPRAC REGIONS TIC CENTE EACH 15 MINUTES CHIROPRAC 20674 [place] CANTRELL TIC 6 AMA MANIPLTV CHIROPRAC TX TIC CENTE EXTRASPIN AL 1/> REGION APPL 92025 [place] CANTRELL MODALITY 6 AMA 1/> AREAS CHIROPRAC TRACTION TIC CENTE MECHANICA L APPL 06291 [place] CANTRELL MODALITY 6 AMA 1/> AREAS CHIROPRAC ELEC TIC CENTE STIMJ UNATTENDE D CHIROPRAC 10151 [place] CANTRELL TIC 6 AMA MANIPLTV CHIROPRAC TX TIC CENTE EXTRASPIN AL 1/> REGION APPL 65162 [place] CANTRELL MODALITY 6 AMA 1/> AREAS CHIROPRAC TRACTION TIC CENTE MECHANICA L APPL 88364 [place] CANTRELL MODALITY 6 AMA 1/> AREAS CHIROPRAC ELEC TIC CENTE STIMJ UNATTENDE D CHIROPRAC 36729 [place] CANTRELL TIC 6 AMA MANIPULAT CHIROPRAC DOMIN[place] TX TIC CENTE SPINAL 3-4 REGIONS MANUAL 51121 [place] CANTRELL THERAPY 6 AMA TQS 1/> CHIROPRAC REGIONS TIC CENTE EACH 15 MINUTES CHIROPRAC 73562 [place] CANT[place]LL TIC 6 AMA MANIPULAT CHIROPRAC DOMIN[place] TX TIC CENTE SPINAL 3-4 REGIONS MANUAL 85716 [place] CANTRELL THERAPY 6 AMA TQS 1/> CHIROPRAC REGIONS TIC CENTE EACH 15 MINUTES CHIROPRAC 15627 [place] CANT[place]LL TIC 6 AMA MANIPLTV CHIROPRAC TX TIC CENTE EXTRASPIN AL 1/> REGION APPL 41239 [place] CANTRELL MODALITY 6 AMA 1/> AREAS CHIROPRAC TRACTION TIC CENTE MECHANICA L CHIROPRAC 94830 [place] CANTRELL TIC 6 AMA MANIPLTV CHIROPRAC TX TIC CENTE EXTRASPIN AL 1/> REGION APPL 52934 [place] MODALITY 6 1/> AREAS CHIROPRAC CHIROPRAC TRACTION TIC CENTE TIC CENTE MECHANICA L APPL 37639 [place] CANTRELL MODALITY 6 AMA 1/> AREAS CHIROPRAC ELEC TIC CENTE STIMJ UNATTENDE D CHIROPRAC 64442 [place] CANTRELL TIC 6 AMA MANIPULAT CHIROPRAC DOMIN[place] TX TIC CENTE SPINAL 3-4 REGIONS APPL 26260 [place] CANTRELL MODALITY 6 AMA 1/> AREAS CHIROPRAC TIC CENTE ULTRASOUN D EA 15 MIN MANUAL 92163 [place] CANTRELL THERAPY 6 AMA TQS 1/> CHIROPRAC REGIONS TIC CENTE EACH 15 MINUTES THERAPEUT 68317 [place] CANT[place] IC PX 1/> 6 AMA AREAS CHIROPRAC EACH 15 TIC CENTE MIN EXERCISES CHIROPRAC 55749 [place] CANT[place]LL TIC 6 AMA MANIPULAT CHIROPRAC DOMIN[place] TX TIC CENTE SPINAL 3-4 REGIONS APPL 33212 [place] CANTRELL MODALITY 6 AMA 1/> AREAS CHIROPRAC TIC CENTE ULTRASOUN D EA 15 MIN MANUAL 22429 [place] CANTRELL THERAPY 6 AMA TQS 1/> CHIROPRAC REGIONS TIC CENTE EACH 15 MINUTES CHIROPRAC 24284 [place] CANTRELL TIC 6 AMA MANIPLTV CHIROPRAC TX TIC CENTE EXTRASPIN AL 1/> REGION APPL 98518 [place] CANTRELL MODALITY 6 AMA 1/> AREAS CHIROPRAC TRACTION TIC CENTE MECHANICA L APPL 23324 [place] MODALITY 6 1/> AREAS CHIROPRAC CHIROPRAC ELEC TIC CENTE TIC CENTE STIMJ UNATTENDE D CHIROPRAC 07474 [place] CANT[place]LL TIC 6 AMA MANIPLTV CHIROPRAC TX TIC CENTE EXTRASPIN AL 1/> REGION APPL 74089 [place] MODALITY 6 1/> AREAS [facility] CHIROPRAC TRACTION TIC CENTE TIC CENTE MECHANICA L APPL 15448 [place] CANTRE[place] MODALITY 6 AMA 1/> AREAS [facility]OP[facility] ELEC TIC CENTE STIMJ UNATTENDE D CHIROPRAC 61243 [place] CANT[place] TIC 6 AMA MANIPULAT CHIROPRAC DOMINICK TX TIC CENTE SPINAL 3-4 REGIONS APPL 96689 [place] CANT[place] MODALITY 6 AMA 1/> AREAS CHIROPRAC TIC CENTE ULTRASOUN D EA 15 MIN MANUAL 32579 [place] CANT[place] THERAPY 6 AMA TQS 1/> CH[facility] REGIONS TIC CENTE EACH 15 MINUTES CHIROPRAC 33869 [place] CANT[place] TIC 6 AMA MANIPULAT CHIROPRAC DOMIN[place] TIC CENTE SPINAL 3-4 REGIONS APPL 88019 [place] MODALITY 6 1/> AREAS CHIROPR[facility] CHIROPRAC TIC CENTE TIC CENTE ULTRASOUN D EA 15 MIN MANUAL 09282 [place] CANT[place] THERAPY 6 AMA TQS 1/> CHIROPRAC REGIONS TIC CENTE EACH 15 MINUTES CHIROPRAC 58563 [place] BURDICKEL PRA TIC 6 MANIPLTV [facility]IR[facility]AC TX TIC CENTE EXTRASPIN AL 1/> REGION APPL 14791 [place] CANT[place] MODALITY 6 AMA 1/> AREAS CHIROPRAC TRACTION TIC CENTE MECHANICA L APPL 33060 [place] C[place] MODALITY 6 AMA 1/> AREAS CHIROPRAC ELEC TIC CENTE STIMJ UNATTENDE D CHIROPRAC 53585 [place] CANT[place] TIC 6 AMA MANIPLTV CHIROPRAC TX TIC CENTE EXTRASPIN AL 1/> REGION APPL 09059 [place] MODALITY 6 1/> AREAS [facility]IROPR[facility] CHIROPRAC TRACTION TIC CENTE TIC CENTE MECHANICA L APPL 03601 [place] CANT[place] MODALITY 6 AMA 1/> AREAS CHIROPRAC ELEC TIC CENTE STIMJ UNATTENDE D CHIROPRAC 36784 [place] CANT[place] TIC 6 AMA MANIPULAT CHIROPRAC DOMINICK TX TIC CENTE SPINAL 3-4 REGIONS MANUAL 55084 [place] CANT[place] THERAPY 6 AMA TQS 1/> CHIROPRAC REGIONS TIC CENTE EACH 15 MINUTES CHIROPRAC 49521 [place] CANT[place] TIC 6 AMA MANIPLTV CHIROPRAC TX TIC CENTE EXTRASPIN AL 1/> REGION APPL 51500 [place] MODALITY 6 1/> AREAS CHIROPRAC CHIROPRAC TRACTION TIC CENTE TIC CENTE MECHANICA L APPL 52438 [place] CANT[place] MODALITY 6 AMA 1/> AREAS CHIROPRAC ELEC TIC CENTE STIMJ UNATTENDE D CHIROPRAC 80793 [place] CANT[place]LL TIC 6 AMA MANIPULAT CHIROPRAC DOMINICK TX TIC CENTE SPINAL 3-4 REGIONS MANUAL 18411 [place] CANT[place] THERAPY 6 AMA TQS 1/> CHIROPRAC REGIONS TIC CENTE EACH 15 MINUTES CHIROPRAC 04369 [place] CANT[place] TIC 6 AMA MANIPULAT CHIROPRAC DOMINICK TX TIC CENTE SPINAL 3-4 REGIONS MANUAL 85890 [place] CANT[place] THERAPY 6 AMA TQS 1/> CHIROPRAC REGIONS TIC CENTE EACH 15 MINUTES CHIROPRAC 17844 [place] C[place] TIC 6 AMA MANIPLTV CHIROPRAC TX TIC CENTE EXTRASPIN AL 1/> REGION APPL 56368 [place] C[place] MODALITY 6 AMA 1/> AREAS CHIROPRAC TRACTION TIC CENTE MECHANICA L APPL 58146 [place] CANT[place] MODALITY 6 AMA 1/> AREAS CHIROPRAC ELEC TIC CENTE STIMJ UNATTENDE D CHIROPRAC 66535 [place] CANT[place]LL TIC 6 AMA MANIPLTV CHIROPRAC TX TIC CENTE EXTRASPIN AL 1/> REGION APPL 95809 [place] C[place] MODALITY 6 AMA 1/> AREAS CHIROPRAC TRACTION TIC CENTE MECHANICA L APPL 96335 [place] CANT[place] MODALITY 6 AMA 1/> AREAS CHIROPRAC ELEC TIC CENTE STIMJ UNATTENDE D CHIROPRAC 64031 [place] CANT[place] TIC 6 AMA MANIPULAT CHIROPRAC DOMINICK TX TIC CENTE SPINAL 3-4 REGIONS MANUAL 65740 [place] CANTRELL THERAPY 6 AMA TQS 1/> CHIROPRAC REGIONS TIC CENTE [place] [address] [place] [address] [place] CANTRELL 1/> AREAS 6 AMA EACH 15 CHIROPRAC [place] [address] [place] CANTRELL 1/> AREAS 6 AMA EACH 15 CHIROPRAC MIN TIC CENTE NEUROMUSC REEDUCA CHIROPRAC 24177 [place] CANT[place] TIC 6 AMA MANIPLTV CHIROPRAC TX TIC CENTE EXTRASPIN AL 1/> REGION APPL 16041 [place] CANT[place] MODALITY 6 AMA 1/> AREAS CHIROPRAC TRACTION TIC CENTE MECHANICA L APPL 64972 [place] CANT[place] MODALITY 6 AMA 1/> AREAS CHIROPRAC ELEC TIC CENTE STIMJ UNATTENDE D CHIROPRAC 87879 EMMIE CANTRELL TIC 6 AMA MANIPULAT CHIROPRAC DOMINICK TX TIC CENTE SPINAL 3-4 REGIONS MANUAL 82079 EMMIE CANTRELL THERAPY 6 AMA TQS 1/> CHIROPRAC REGIONS TIC CENTE EACH 15 MINUTES IAADIADOO 49143 GNOSTICIST SHANIKA 6 [facility] CCUS [facility] GROUP A BLOOD 40111 ANTONIO ALVAREZ COUNT 6 [facility] COMPLETE INC INC AUTO&AUTO DIFRNTL WBC 25 [id number] ANTON[facility] HYDROXY 6 [facility] INCLUDES INC INC FRACTIONS IF PERFORMED CREATINE 47377 ANTONIO [facility] KINASE 6 [facility] TOTAL INC INC SEDIMENTA 00339 ANTONIO ALVAREZ TION RATE [facility] RBC INC INC NON-AUTOM ATED COMPREHEN 63128 ANTONIO ALVAREZ SIVE 6 [facility] [address] ANTONIO ALVAREZ THYROID 6 [facility] STIMULATI INC INC NG HORMONE TSH C-REACTIV 95246 ANTONIO ALVAREZ E PROTEIN 6 [facility] INC INC DNA 70734 ANTONIO ALVAREZ ANTIBODY 6 [facility] [place] INC INC UBLE STRANDED COLLECTIO 25328 [facility] YOLANDE N VENOUS 6 PHYSICIAN STONE BLOOD S GROUP PA-[place] [address] ANTONIO ALVAREZ THYROXINE 6 [facility] TOTAL INC INC ANTINUCLE 94924 ANTONIO ALVAREZ AR 6 [facility] ANTIBODIE INC INC S TYSHAWN OPHTH 00319 [facility] 6 GRE GRE XM&EVAL COMPRE NEW PT 1/> VST THERAPEUT 91630 [facility] JEFFRY IC 6 PHYSICIAN HUGH PROPHYLAC S GROUP TIC/DX INJECTION SUBQ/IM INJECTION [id number] [facility] JEFFRY 6 PHYSICIAN HUGH CEFTRIAXO S GROUP NE SODIUM PER 250 MG INJECTION J1040 [facility] 6 PHYSICIAN HUGH METHYLPRE S GROUP DNISOLONE ACETATE 80 MG INJECTION J1040 [facility] 6 PHYSICIAN HUGH METHYLPRE S GROUP DNISOLONE ACETATE 80 MG INJECTION J0696 [facility] 6 PHYSICIAN HUGH CEFTRIAXO S GROUP NE SODIUM PER 250 MG THERAPEUT 07961 [facility] IC 6 PHYSICIAN HUGH PROPHYLAC S GROUP TIC/DX INJECTION SUBQ/IM INJECTION J05[address] [facility] 6 [facility] N G BENZATHIN E 976602 UNITS THERAPEUT [address] [facility] IC 6 [facility] TIC/DX INJECTION SUBQ/IM INJECTION J1100 [address] SONE SODIUM PHOSPHATE 1 MG LEVEL V 49428 [facility], PICKLESIM SURG 5 [facility] GROSS&HUGH ROSCOPIC EXAM ANESTHESI 53734 [facility] SPARROW JADEN A 5 ANESTH INTRAPERI OF THE TONEAL BLUE LOWER ABD W/LAPS NOS TOTAL 55254 [facility] SCHULSTAD ABDOMINAL 5 PHYSICIAN CAM S GROUP HYSTERECT W/WO RMVL TUBE OVARY COLLECTIO 90766 ANTONIO ALVAREZ N VENOUS 5 [facility] BLOOD INC INC VENIPUNCT URE SMR PRIM 20142 ROSIBEL ROMAN SRC WET 5 JESSIE MEDLEY NFCT AGT CULTURE 90126 ANTONIO ALVAREZ BACTERIAL 5 [facility] INC INC QUANTTATI VE COLONY COUNT URINE URNLS DIP 33169 ANTONIO ALVAREZ 5 [facility] STICK/TAB INC INC LET REAGENT AUTO MICROSCOP Y GONADOTRO 92526 ANTONIO ALVAREZ PIN 5 [facility] CHORIONIC INC INC QUALITATI VE BLOOD 16577 ANTONIO ALVAREZ COUNT 5 [facility] COMPLETE INC INC AUTO&AUTO DIFRNTL WBC SUSCEPTIB 75846 ANTONIO ALVAREZ LTY STDY 5 [facility] ANTIMICRB INC INC IAL MICRO/[place] [address] ANTONIO ALVAREZ TRANSVAGI 5 [facility] NAL INC INC URINLS 51555 ROSIBEL ROMAN DIP 5 JESSIE BOTELLO SHASTA STICK/TAB LET REAGNT NON-AUTO MICRSCPY CHIROPRAC 05318 EMMIE SALEEM TIC 5 GAR MANIPULAT CHIROPRAC DOMINICK TX TIC CENTE SPINAL 1-2 REGIONS CHIROPRAC 04071 EMMIE SALEEM TIC 5 GAR MANIPLTV CHIROPRAC TX TIC CENTE EXTRASPIN AL 1/> REGION APPL 70612 EMMIE SALEEM MODALITY 5 GAR 1/> AREAS [place]IROPRAC [place] [address] EMMIE HARPER 1/> AREAS 5 GAR EACH 15 CHIROPRAC MIN [place] [address] CYNCUATE SALEEM 1/> AREAS 5 GAR EACH 15 CHIROPRAC MIN TIC CENTE NEUROMUSC REEDUCA CHIROPRAC 06777 EMMIE SALEEM TIC 5 GAR MANIPULAT CHIROPRAC DOMINICK TX TIC CENTE SPINAL 1-2 REGIONS CHIROPRAC 35748 EMMIE SALEEM TIC 5 GAR MANIPLTV CHIROPRAC TX TIC CENTE EXTRASPIN AL 1/> [place] [address] CYNCUATE SALEEM 1/> AREAS 5 GAR EACH 15 CHIROPRAC [place] [address] CYNCUATE SALEEM 1/> AREAS 5 GAR EACH 15 CHIROPRAC MINUTES TIC CENTE MASSAGE CHIROPRAC 20673 EMMIE SALEEM TIC 5 GAR MANIPULAT CHIROPRAC DOMIINCK TX TIC CENTE SPINAL 1-2 [place] [address] EMMIE SALEEM 1/> AREAS 5 GAR EACH 15 CHIROPRAC MIN TIC CENTE NEUROMUSC REEDUCA URNLS DIP 66116 ANTONIO BELTRAN 5 [facility] STICK/[facility] LET RGNT NON-AUTO W/O MICRSCP COLLECTIO 51707 ANTONIO ALVAREZ N VENOUS 5 [facility] BLOOD INC INC VENIPUNCT URE COMPREHEN 59305 ANTONIO ALVAREZ SIVE 5 [facility] METABOLIC INC INC PANEL URNLS DIP 67271 ANTONIO ALVAREZ 5 [facility] STICK/TAB INC INC LET REAGENT AUTO MICROSCOP Y BLOOD 10073 ANTONIO ALVAREZ COUNT 5 [facility] COMPLETE INC INC AUTO&AUTO DIFRNTL WBC URNLS DIP 49814 ANTONIO ALVAREZ 5 [facility] STICK/TAB INC INC LET REAGENT AUTO MICROSCOP Y BLOOD 26506 ANTONIO ALVAREZ COUNT 5 [facility] COMPLETE INC INC AUTO&AUTO DIFRNTL WBC COMPREHEN 13363 ANTONIO ALVAREZ SIVE 5 [facility] [place] [address] [facility] ABDOMEN & 5 MEDICAL ARELY PELVIS IMAGING W/O ASS CONTRAST MATERIAL IMMUNOASS 46914 ANTONIO ALVAREZ AY NFCT 5 [facility] AGT ANTB INC INC QUAL/SEMI ANGIE 1 STEP UNCLASSIF J3490 ANTONIO ANTONIO IED DRUGS 5 [facility] INC INC COMPREHEN 81301 ANTONIO ALVAREZ SIVE 5 [facility] [place] [address] ANTONIODIAZ ALVAREZ INFUSION 5 [facility] THERAPY/P INC INC ROPHYLAXI S /DX 1ST TO 1 HR BLOOD 67340 ANTONIO ALVAREZ COUNT 5 [facility] COMPLETE INC INC AUTO&AUTO DIFRNTL WBC HGB 05798 ROSIBEL ROMAN QUANTITAT 5 JESSIE VEGAS DOMINICK TRANSCUTA NEOUS SMR PRIM 51976 ROSIBEL ROMAN SRC WET 5 JESSIE VEGAS [facility] [place] [address] P&C LABS, P&C LABS, SURG 5 [facility] PATHOLOGY GROSS&HUGH ROSCOPIC EXAM ANESTHESI 22398 [facility] SAVANNA A VAGINAL 5 ANESTH LUCERO OF THE PROCEDURE BLUE W/BIOPSY NOS BLOOD 76974 ANTONIODIAZ UGARTEON COUNT 5 [facility] HEMOGLOBI INC INC N UNCLASSIF J3490 ANTONIO ALVAREZ IED DRUGS 5 [place] [address] ANTONIODIAZ ALVAREZ INFUSION 5 [facility] THERAPY INC INC PROPHYLAX IS/DX EA HOUR INJECTION J2405 ANTONIO ANTONIO 5 [facility] ONDANSETR INC INC ON HCL PER 1 MG COLLECTIO 51881 ANTONIO ALVAREZ N VENOUS 5 [facility] BLOOD INC INC VENIPUNCT URE BLOOD 90713 ANTONIO ALVAREZ COUNT 5 [facility] HEMATOCRI INC INC T DILATION 61900 ANTONIO ALVAREZ & 5 [facility] CURETTAGE INC INC DX&/THER NONOBSTET JACQUI URNLS DIP 53260 ANTONIO ALVAREZ 5 [facility] STICK/TAB INC INC LET REAGENT AUTO MICROSCOP Y BLOOD 21592 ANTONIO ALVAREZ COUNT 5 [facility] COMPLETE INC INC AUTO&AUTO DIFRNTL WBC URINE 25545 ANTONIO ALVAREZ 5 [facility] TEST INC INC VISUAL COLOR CMPRSN METHS CULTURE 94733 ANTONIO ALVAREZ BACTERIAL 5 [facility] INC INC QUANTTATI VE COLONY COUNT URINE COLLECTIO 80207 ANTONIO ALVAREZ N VENOUS 5 [facility] BLOOD INC INC VENIPUNCT URE COLLECTIO 25051 ANTONIO ALVAREZ N VENOUS 5 [facility] [place] [address] [facility] TRANSVAGI 5 MEDICAL HARINDER NAL IMAGING ASS BLOOD 86804 ANTONIO ALVAREZ COUNT 5 [facility] COMPLETE INC INC AUTO&AUTO DIFRNTL WBC COMPUTER- 87782 ANTONIO ALVAREZ AIDED 5 [facility] DETECTION INC INC SCREENING MAMMOGRAP HY SCREENING G0202 ANTONIO ALVAREZ 5 [facility] MAMMOGRAP INC INC HY MICHELE INCL CAD WHEN PERFORMD Encounters Encounter Start End Date Code Location Performer Type Date OFFICE 92303 [facility] STONE OUTPATIEN 7 7 PHYSICIAN T VISIT S GROUP 25 MINUTES OFFICE 27145 [facility] OUTPATIEN 6 6 PHYSICIAN T VISIT S GROUP 15 MINUTES OFFICE 12218 [facility] FRYMAN OUTPATIEN 6 6 PHYSICIAN T VISIT S GROUP 15 MINUTES HOSPITAL ANTONIO - 6 6 [facility] OUTPATIEN INC T PERIODIC 86993 [facility] HARPEL PREVENTIV 6 6 PHYSICIAN SHASTA E MED EST S GROUP PATIENT 40-64YRS OFFICE 96057 [facility] [place] OUTPATIEN 6 6 PHYSICIAN EUG T VISIT S GROUP 15 MINUTES HOSPITAL ANTONIO - 6 6 [facility] OUTPATIEN INC T OFFICE 76050 [facility] [place] OUTPATIEN 6 6 PHYSICIAN T NEW 30 S GROUP MINUTES HOSPITAL ANTONIO - 6 6 [facility] OUTPATIEN INC T OFFICE 17555 [facility] [place]MAN OUTPATIEN 6 6 PHYSICIAN EUG T VISIT S GROUP 15 MINUTES OFFICE 80511 [facility] [place] OUTPATIEN 6 6 PHYSICIAN T VISIT GROUP 25 MINUTES OFFICE 64473 [facility] OUTPATIEN 6 6 AMA T VISIT CHIROPRAC 15 TIC CENTE MINUTES OFFICE 23734 [facility] GAGE OUTPATIEN 6 6 PHYSICIAN T VISIT GROUP 15 MINUTES EMERGENCY 50006 [facility] 6 6 [facility] T VISIT MODERATE SEVERITY HOSPITAL ANTONIO - 6 6 [facility] OUTPATIEN INC T EMERGENCY 60404 ANTONIO 6 6 [facility] DEPARTMEN INC T VISIT LOW/MODER SEVERITY OFFICE 68410 EMMIE CANTRELL OUTPATIEN 6 6 AMA T VISIT CHIROPRAC 15 TIC CENTE MINUTES OFFICE 04560 ANTONIO GERMANETT OUTPATIEN 6 6 [facility] 25 MINUTES OFFICE 98960 [facility] OUTPATIEN 6 6 [facility] T VISIT MEDICAL 15 GROUP MINUTES OFFICE 28345 [facility] YOLANDE OUTPATIEN 6 6 PHYSICIAN STONE T VISIT S GROUP PA-C CORBIN 25 MINUTES HOSPITAL ANTONIO - 6 6 [facility] OUTPATIEN INC T OFFICE 12160 ROSIBEL ROMAN OUTPATIEN 6 6 JESSIE BOTELLO SHASTA T VISIT 15 MINUTES OFFICE 48730 [facility] JEFFRY OUTPATIEN 6 6 PHYSICIAN HUGH T VISIT S GROUP 15 MINUTES OFFICE 22991 [facility] JEFFRY OUTPATIEN 6 6 PHYSICIAN HUGH T VISIT S GROUP 15 MINUTES OFFICE 73832 ANTONIO EASLEY OUTPATIEN 6 6 [facility] VISIT [facility] 15 MINUTES HOSPITAL ANTONIO - 5 6 [facility] INPATIENT [facility] ANTONIO - 5 5 [facility] OUTPATIEN INC T OFFICE 15256 ROSIBEL ROMAN OUTPATIEN 5 5 JESSIE BOTELLO SHASTA T VISIT 15 MINUTES HOSPITAL ANTONIO - 5 5 [facility] OUTPATIEN INC T OFFICE 75281 ROSIBEL ROMAN OUTPATIEN 5 5 JESSIE BOTELLO SHASTA T VISIT 25 MINUTES OFFICE 28836 EMMIE SALEEM OUTPATIEN 5 5 [facility] T VISIT CHIROPRAC 10 TIC CENTE MINUTES OFFICE 62991 ANTONIO BELTRAN OUTPATIEN 5 5 [facility] VISIT [facility] 15 MINUTES HOSPITAL ANTONIO - 5 5 [facility] OUTPATIEN INC T EMERGENCY 88379 ALYSIA TERAN 5 5 PHYSICIAN HUGH DEPARTMEN S, [facility] T VISIT HIGH/URGE NT SEVERITY HOSPITAL ANTONIO - 5 5 [facility] OUTPATIEN INC T EMERGENCY 35470 ANTONIO 5 5 [facility] DEPARTMEN INC T VISIT MODERATE SEVERITY EMERGENCY 09368 ANTONIO 5 5 [facility]PART[facility] T VISIT HIGH/URGE NT SEVERITY HOSPITAL ANTONIO - 5 5 [facility] OUTPATIEN INC T EMERGENCY 15225 ANTONIO Apodaca [address] [facility] T VISIT P MODERATE SEVERITY OFFICE 94981 ROSIBEL ROSALESPATIEN 5 5 JESSIE VEGAS T VISIT 15 MINUTES HOSPITAL ANTONIO - 5 5 [facility] OUTPATIEN [facility] ANTONIO - 5 5 [facility] OUTPATIEN INC T OFFICE 62404 ROSIBEL ROMAN OUTPATIEN 5 5 JESSIE VEGAS T VISIT 15 MINUTES OFFICE 05929 ROSIBEL ROMAN OUTPATIEN 5 5 JESSIE VEGAS T VISIT 15 MINUTES HOSPITAL ANTONIO - 5 5 [facility] OUTPATIEN [facility] T OFFICE 88242 ROSIBEL ROMAN OUTPATIEN 5 5 JESSIE VEGAS T VISIT 15 MINUTES HOSPITAL ANTONIO - 5 5 [facility] OUTPATIEN INC T
--- OUTSIDE RECORDS SUMMARY | 2016-10-10 20:17 | External Medical Summary Rpt ---
Author Author OMAIRA Webb, [employer] Organization [employer] Address Unknown Phone Unavailable
--- OUTSIDE RECORDS SUMMARY | 2016-10-10 20:17 | External Medical Summary Rpt ---
Demographics Preferred Language Iraqi Marital Status Unknown Jain Affiliation Unknown Race Unknown Ethnic Group Unknown Author Author , Organization [employer] Address Unknown Phone Unavailable Purpose Continuity of Care Document - through 2016 Immunization No patient found.
--- OUTSIDE RECORDS SUMMARY | 2016-10-10 20:17 | External Medical Summary Rpt ---
Demographics Preferred Language Prydeinig Marital Status Unknown Mandaeism Affiliation Unknown Race Unknown Ethnic Group Unknown Author Author , Organization [employer] Address Unknown Phone Unavailable Purpose Continuity of Care Document - through 2016 Immunization No patient found.
--- NOTE | 2016-10-10 20:30 | Urgent Treatment Center Report ---
History of Present Issue Date/Time Seen by Provider 10/10/162014 Visit Reason Pt arrived:Walked Presenting Problem:PT C/O LEFT FOOT PAIN X10 DAYS. PT ADVISES SHE STEPPED OFF HER FRONT PORCH AND TWISTED HER FOOT. PT DENIES ANY ANKLE PAIN Location if Accident: Onset of symptoms date/time:/ or onset unknown for:MEDICAL HX UNKNOWN Have you (or family members/close friends) recently traveled outside the [place]? N If Yes, where/when: Have you had exposure to infectious disease within the past month? TB? Other? Specify: c/o left foot pain progressively getting worse over the last 10 days. Reporting she stepped off her porch and twisted her foot, not ankle. "Just felt sprained". Continued to work 14 hour shifts, tried dedra wrap, different muscle rubs including tiger balm but pain has continued to get worse each day. Today pain "approaching 10 out of 10 and I am not one to cry but I cried today". Pain located on lateral/little toe side of foot starting at toe and radiating back to mid foot. Described as constant ache w/ intermittent sharp "turn my stomach" pain w/ certain movements. Feels best flat on the floor, pain with lifting foot off floor. Limping but only able to walk on heel. Denies N/T. Swelling worse after accident but still "some" at times. Source patient Exam Limitations clinical condition (pain) ALLERGIES Coded Allergies: erythromycin base (Intermediate, I-HIVES 06/03/15) ibuprofen (Intermediate, SWELLING 06/03/15) levofloxacin (From LEVAQUIN) (S-DIFF. BREATHING 01/04/16) Home Medications Active Scripts Clindamycin Hcl (Clindamycin 300MG) 300 MG PO Q8 #21 CAP Prov: 01/04/16 Reported Medications LISINOPRIL/HYDROCHLOROTHIAZIDE (Lisinopril-Hctz 20-25 MG Tab) 1 TAB PO DAILY #30 AMOXICILLIN/POTASSIUM CLAV (Amox Tr-K Clv 875-125 MG Tab) 1 TAB PO BID #20 Estradiol 1 EACH TD 2 X WEEK #16 History Medical History General CAD? No Angina: No GA: No Hypertension? Yes Hyperlipidemia? No CHF? No DVT? No PE? No COPD? No Asthma? Yes Anemia? No GERD? No Gastric ulcers? No GI Bleed? No Hernia? No Thyroid Problems? No Hypothyroidism? No CVA? No Seizures? No Diabetes? No Renal Insuffiency? No UTI? Yes Stones? Yes BPH? No GB Disease: Yes Nephritic Syndrome? No Asplenia? No Hepatitis? No Sickle Cell Disease? No Arthritis? No Migraines? No Cataracts? No Glaucoma? No MRSA? No HIV? No TB? No Anxiety? No Depression? No Cancer? No More? No Immunization HX DT/Tetanus < 1 Year Ago Flu Refused Pneumonia Refuses Surgical Hx Previous Surgery?Y C SECTION X 2 TUBAL ORAL SURGERY/WISDOM TEETH GALLBLADDER PARTIAL HYST Family History Family HX Diabetes Yes CAD Yes Hypertension Yes Hyperlipidemia No Cancer Yes TB No Social History Smoking Hx Smoker: Never Smoker Tobacco: No Packs/day N/A Alcohol Alcohol: No Review of Systems All Other Systems Reviewed and Negative Musculoskeletal see HPI, denies other (ankle, leg or other pain) Skin see HPI Psychiatric/Neurological see HPI Physical Exam Vital Signs Vital Signs Date Time Temp Pulse Resp B/P Pulse O2 O2 Flow FiO2 Ox Delivery Rate 10/10 2009 99.5 90 20 108/65 97 General Appearance mild distress (seen limping, guarding foot) Respiratory Status No: respiratory distress. Cardiovascular no peripheral edema Peripheral Pulses Pulses normal Yes (pedal) Back gait abnormality (limp, favoring lt foot) Extremities normal range of motion (all digits), limited range of motion (pain worse w/ dorsiflexion), swelling (lateral left foot), tenderness 5th metatarsal and cuboid Neurologic alert, no motor/sensory deficits Skin normal color, warm/dry, abrasion to top of lt mid foot region, pt reporting d/t tape/DEDRA and not accident Medical Decision Making LABS/Meds/Orders Pt receiving controlled substance in ED? No Results/Orders Current Medication Orders Sig/Asher Start time Last Medication Dose Route Stop Time Status Admin Acetaminophen 0 .STK-MED ONE 10/11 2015 DC PO Acetaminophen 975 MG ONCE ONE 10/10 2014 DC 10/10 PO 10/10 2016 2018 Orders Procedure Date/time Status STABILIZE JOINT 10/10 2101 Active FOOT-LT-3 VIEWS 10/10 2012 Active XRAY/CT/US XRAY/CT/US XRAY foot (left) XR interpretation by reviewed by me (w/ Dr. Jamison, CAMILO BOTELLO) Xray Results questionable fracture base of 5th metatarsal Departure Departure Time of Disposition 2101 Disposition DC Home or Self Care(routine) Clinical Impression Primary Impression: Fracture of fifth metatarsal bone of left foot Qualifiers: Encounter type: initial encounter Fracture type: closed Fracture alignment: nondisplaced Qualified Code: S92.355A - Nondisplaced fracture of fifth metatarsal bone, left foot, initial encounter for closed fracture Condition STABLE Referrals TUCKER MONIQUE (Family) Call office tomorrow for final xray results and additional POC. Patient Instructions DI for Foot Fracture, How to Use a Walking Boot Additional Instructions * weight bearing as tolerated but ONLY in walking boot * Rest * ice 15-20 mins 3-4 times a day * walking boot until told otherwise by ortho or PCP * Elevate as discussed as much as possible to help reduce swelling and therefore , pain * tylenol every 4 hours as needed as long as your primary care provider has told you it is ok to take Follow up IMMEDIATELY for new or worsening symptoms AND call primary care in morning for final xray results Discharge Counseling Counseled pt/family regarding diagnosis, test results, medications/RX, home care, follow up needs at [phone]
[2016-10-10 21:05] VITALS: BP 108/65
--- NOTE | 2016-10-11 05:15 | RADIOLOGY REPORT PS360 ---
FOOT-LT-3 VIEWS HISTORY: Posttraumatic pain TWISTED FOOT X10 DAYS AGO STEPPING OFF PORCH; INCREASE TEVIN ORDERING PHYSICIAN: CARLOS AMADOR APRN PATIENT AGE: 46 years COMPARISON: None FINDINGS: No fracture or dislocation. No lytic or blastic change. There is normal mineralization.. The joint spaces are well-preserved. . No erosive changes evident. Hypertrophic changes are present at the Achilles insertion, plantar aspect of the calcaneus, and at the base of the fifth metatarsal. Minimal osteoarthritic changes involve the first metatarsophalangeal joint. IMPRESSION: 1. No acute finding. 2. Mild degenerative changes
== END 2016-10-10 21:06 | disposition home or self-care (01) ==
LOC: UTC 19:59
DX: S92.355A Nondisplaced fracture of fifth metatarsal bone, left foot, initial encounter for closed fracture (principal); W17.89XA Other fall from one level to another, initial encounter

== ENCOUNTER 2016-10-16 19:33 | Emergency (ER) | payer MEDICAID ==
[~2016-10-16] VITALS: Ht 172.7 cm; Wt 117.9 kg
--- OUTSIDE RECORDS SUMMARY | 2016-10-16 19:42 | External Medical Summary Rpt ---
Author Author , Organization [employer] Address Unknown Phone Unavailable Care Team Providers Care Ramp Service Employee Name Role Phone [facility] Un[facility], [facility] BEINEKE HARINDER, BEINEKE Unavailable Unavailable [...] Unavailable JESSIE LOPEZ MD Unavailable Unavailable SHASTA [facility] Unavailable Unavailable INC, [facility] Unavailable [facility]available H[facility]PITAL, [facility] Unavailable Unavailable [facility]PITAL P, [facility]ITAL P [facility], Unavailable Unavailable [facility] CANTRELL AMA, CANTRELL Unavailable Unavailable [facility] Janes Jamison MD, Unavailable Unavailable Janes LOPEZ, Unavailable Unavailable EVENS LOPEZ, Unavailable Unavailable EVENS RAMÍREZ, Unavailable Unavailable HARPER RAMÍREZ [facility] Un[facility] Unavailable Unavailable PLL[facility], [facility], [facility] RENEE PRA, RENEE PRA Unavailable Unavailable PICKLESIMER JR SANTOSH, Unavailable Unavailable PICKLESIMER JR SANTOSH SHANIKA HEN, SHANIKA Unavailable Unavailable HEN [place]UN[place], CUNNINGHAM Unavailable Unavailable SADEK MOH, SADEK MOH Unavailable Unavailable SCHULSTAD CAM, Unavailable Unavailable SCHULSTAD CAM STONE, STONE Unavailable Unavailable SAVANNA MANZOF, SAVANNA Unavailable Unavailable L[facility] Purpose Continuity of Care Document - 12-11-2012 through 2016 Problems Code Diagnosis DOS Provider Status [id number] PAIN IN 07-10-2016 [place] RIGHT CHIROPRACTI SHOULDER [...] SOMATIC CHIROPRACTI DYSFUNCTION C CENTE LOWER EXTREMITY [id number] ACUTE 06-29-2016 [facility] SUPPURATIVE PHYSICIANS OM W/O GROUP RUPT EAR DRUM RT EAR R109 UNSPECIFIED 06-29-2016 [facility] ABDOMINAL PHYSICIANS PAIN GROUP J40 BRONCHITIS 05-25-2016 [facility] NOT PHYSICIANS SPECIFIED GROUP ACUTE OR CHRONIC J0100 ACUTE 05-22-2016 [facility] MAXILLARY PHYSICIANS SINUSITIS GROUP UNSPECIFIED Z1231 ENCOUNTER 05-01-2016 [facility]IG IMAGING ASS NEOPLASM BREAST N951 MENOPAUSAL 04-25-2016 [facility] AND FEMALE PHYSICIANS CLIMACTERIC GROUP STATES C75299 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[facility]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 GENERAL RTN GROUP W/O ABNORMAL FIND Z1212 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[facility] SCREENING PHYSICIANS MALIGNANT GROUP NEOPLASM RECTUM J0390 ACUTE 04-13-2016 [facility] TONSILLITIS PHYSICIANS GROUP UNSPECIFIED M542 CERVICALGIA 03-30-2016 [place] CHIROPRACTI C CENTE D796IZT SPRAIN 03-30-2016 [place] LIGAMENTS CHIROPRACTI LUMBAR C CENTE SPINE INITIAL ENCOUNTER [id number] STRAIN 03-30-2016 [place] MUSCLE CHIROPRACTI FASCIA & C CENTE TENDON LOW BACK INITIAL J88236 PAIN IN 03-28-2016 [facility] M7989 OTHER 03-28-2016 [facility] SPECIFIED MEDICAL SOFT TISSUE IMAGING ASS DISORDERS 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 M654 RADIAL 03-15-2016 [facility] STYLOID PHYSICIANS TENOSYNOVIT GROUP IS DE QUERVAIN W51397 GANGLION 03-15-2016 [facility] RIGHT WRIST PHYSICIANS GROUP E31883 GANGLION 03-15-2016 [facility] LEFT WRIST PHYSICIANS GROUP J029 ACUTE 03-07-2016 [facility] PHARYNGITIS PHYSICIANS GROUP UNSPECIFIED C89199 PAIN IN 03-07-2016 [place] WRIST [facility] E01023 GANGLION 03-07-2016 [facility] RIGHT HAND PHYSICIANS GROUP I70139 GANGLION 03-07-2016 [facility] LEFT HAND PHYSICIANS GROUP P11679 PAIN IN 03-07-2016 [facility] M9903 SEGMENTAL & 01-21-2016 [place] SOMATIC CHIROPRACTI DYSFUNCTION C CENTE OF LUMBAR REGION M545 LOW BACK 01-11-2016 [place] PAIN CHIROPRACTI C CENTE I10 ESSENTIAL 01-04-2016 [facility] HYP[facility] N K1120 SIALOADENIT 01-04-2016 [facility], UNSPECIFIED PLLC K1121 ACUTE 01-04-2016 [facility] IS INC J329 CHRONIC 12-27-2015 [facility] J0140 ACUTE 11-22-2015 [facility] MEDICAL UNSPECIFIED GROUP H6980 OTHER SPEC 11-09-2015 [facility] DISORDERS PHYSICIANS EUSTACHIAN GROUP TUBE UNS EAR N44765 UNSPECIFIED 11-09-2015 [facility] ASTHMA PHYSICIANS UNCOMPLICAT GROUP ED R5383 OTHER 11-09-2015 [facility] FATIGUE PHYSICIANS GROUP Z840 FAMILY 11-09-2015 [facility] HISTORY PHYSICIANS DISEASES GROUP SKIN & SUBQ TISSUE Z0100 ENCOUNTER 11-04-2015 [facility] EXAM EYES & GRE VISION W/O ABNORMAL FIND H6690 OTITIS 09-22-2015 [facility] MEDIA PHYSICIANS UNSPECIFIED GROUP UNSPECIFIED EAR J040 ACUTE 09-22-2015 [facility] LARYNGITIS PHYSICIANS GROUP L84390 OTHER ACUTE 09-12-2015 [facility] DOMINICK OM RECURRENT BILAT J0190 ACUTE 09-12-2015 [facility] SINUSITIS [facility] UNSPECIFIED HOSPITAL J209 ACUTE 09-12-2015 [facility] BRONCHITIS [facility] D259 LEIOMYOMA 06-03-2015 [facility] UNSPECIFIED K660 PERITONEAL 06-03-2015 [facility]HESIONS [facility] POSTPROC INC POSTINFECTI ON N736 FEMALE 06-03-2015 [facility] PELVIC PHYSICIANS PERITONEAL GROUP ADHESIONS POSTINFECTI VE N800 ENDOMETRIOS 06-03-2015 [facility] IS OF LLC UTERUS N831 CORPUS 06-03-2015 [facility] LUTEUM CYST LLC N8320 UNSPECIFIED 06-03-2015 [facility] OVARIAN PHYSICIANS CYSTS GROUP N856 INTRAUTERIN 06-03-2015 [facility] E SYNECHIAE LLC N938 OTHER SPEC 06-03-2015 [facility] ABNORMAL PHYSICIANS UTERINE & GROUP VAGINAL BLEEDING R102 PELVIC AND 06-03-2015 [facility] PERINEAL [facility] PAIN INC B9689 OTH SPEC 05-24-2015 [facility] Ceballos BACTERIAL JESSIE BOTELLO AGNT CAUSE DZ CLASSIFIED ELSW N760 ACUTE 05-24-2015 ROSIBEL ROMAN MD A93117 ENCOUNTER 05-24-2015 [facility] FOR OTHER [facility] PREPROCEDUR INC AL EXAMINATION N852 HYPERTROPHY 05-10-2015 [place] [facility] N9489 OTH COND 05-04-2015 [facility] Ceballos ASSOC W/EB ROMAN MD GEN ORGN & MENSTRUAL CYCL 4019 UNSPECIFIED 02-03-2015 [facility] N 81403 ASTHMA, 02-03-2015 [facility] UNSPECIFIED [facility] UNSPECIFIED STATUS 5990 URINARY 02-03-2015 [facility] TRACT [facility] IN[facility]CTION [facility] SITE NOT SPECIFIED 33849 ABDOMINAL 01-05-2015 [facility] PAIN OTHER [facility] SPECIFIED INC SITE 35939 OTHER 11-03-2014 [place] SPECIFIED MEDICAL DISORDER OF IMAGING ASS KIDNEY AND URETER 82926 ABDOMINAL 11-03-2014 [facility] PAIN RIGHT [facility] UPPER INC QUADRANT V1301 PERSONAL 11-03-2014 [facility] HISTORY OF [facility] URINARY INC CALCULI 462 ACUTE 10-07-[address] [facility] P 80391 ACUTE 10-07-2014 [facility] LARYNGITIS, [facility] P MENTION OF OBSTRUCTIO 58186 UNSPECIFIED 09-14-2014 [facility] ROMAN MD AND VULVOVAGINI TIS 6262 EXCESSIVE 09-14-2014 [facility] Ceballos OR FREQUENT JESSIE BOTELLO MENSTRUATIO N 0794 HUMAN 08-28-2014 [facility] [...] STATES V7612 OTHER 06-16-2014 [facility] SCREENING [facility] MAMMOGRAM INC 401.9 401.9 12-11-2012 [place] HYPERTENSIO [facility] NOS Hospital 493.90 493.90 12-11-2012 [place] ASTHMA, [facility] UNSPECIFIED Hospital K11.21 ACUTE SIALOADENIT IS N73.6 FEMALE [...] te s n re d ES 00 04 05 8. 28 00 RI Ac TR 37 -1 -1 00 00 TE ti AD 84 3- 2- 0 01 ve IO 64 20 20 15 AI L 02 17 17 92 D 0. 6 37 PH 1 AR MG MA CY PA TC #3 H 93 8 ES 00 03 04 8. 28 00 [...] NO 00 2- 7- 00 01 ve SD 52 20 20 16 AI IL 00 [...] MG #3 TA 93 BL 8 ET SD 59 01 02 10 5 00 RI [...] NO 00 5- 0- 00 01 ve SD 52 20 20 16 AI IL 00 [...] CY PA TC #3 H 93 8 SD 00 12 01 20 10 00 RI Ac OM 60 -2 -2 0. 00 TE ti ET 31 2- 0- 00 01 ve RAMIRES 58 20 20 0 16 AI ZI 65 16 17 36 D NE 4 14 PH -D AR M MA SY CY RU P #3 93 8 SD 00 12 01 10 5 00 RI [...] #3 /3 93 8 ML SO L CL 65 12 01 20 10 00 RI Ac AR 86 -2 -2 .0 00 TE ti IT 20 2- 0- 00 01 ve HR 22 20 20 16 AI OM 66 16 17 36 D YC 0 13 PH IN AR MA 50 CY 0 MG #3 93 TA 8 BL ET AM 00 12 01 20 10 00 [...] NO 00 5- 3- 00 01 ve SD 52 20 20 16 AI IL 00 [...] Procedures Procedure DOS Code Location Performer Comment MANUAL 23847 [place] [facility] 7 TQS 1/> CHIROPRAC REGIONS TIC CENTE EACH 15 MINUTES CHIROPRAC 30642 [place] [facility] TIC 7 MANIPULAT CHIROPRAC DOMINICK TX TIC CENTE SPINAL 1-2 REGIONS INJECTION J0696 [facility] STONE 7 PHYSICIAN CEFTRIAXO S GROUP NE SODIUM PER 250 MG URNLS DIP 86402 [facility] 7 PHYSICIAN PHYSICIAN STICK/TAB S GROUP S GROUP LET RGNT NON-AUTO W/O MICRSCP THERAPEUT 75015 [facility] STONE IC 7 PHYSICIAN PROPHYLAC S GROUP TIC/DX INJECTION SUBQ/IM THERAPEUT 15037 [facility] STONE IC 6 PHYSICIAN PROPHYLAC S GROUP TIC/DX INJECTION SUBQ/IM INJECTION J0696 [facility] STONE 6 PHYSICIAN CEFTRIAXO S GROUP NE SODIUM PER 250 MG INJECTION J0696 [facility] FRYMAN 6 PHYSICIAN CEFTRIAXO S GROUP NE SODIUM PER 250 MG THERAPEUT 07458 [facility] FRYMAN IC 6 PHYSICIAN PROPHYLAC S GROUP TIC/DX INJECTION SUBQ/IM COMPUTER- 89478 [facility] AIDED 6 [facility] DETECTION INC INC SCREENING MAMMOGRAP HY SCREENING G0202 [facility] 6 [facility] MAMMOGRAP INC INC HY MICHELE INCL CAD WHEN PERFORMD IADNA 22710 BIO BIO TRICHOMON 6 REFERNCE REFERNCE LABORATOR LABORATOR VAGINALIS IES IES AMPLIFIED PROBE TECH CULTURE 52560 [facility] HARPEL CHLAMYDIA 6 PHYSICIAN SHASTA ANY S GROUP SOURCE CYTP C/V 09575 BIO BIO AUTO THIN 6 REFERNCE REFERNCE LYR LABORATOR LABORATOR PREPJ SCR IES IES MNL RESCR PHYS IADNA 84254 BIO BIO CHLAMYDIA 6 REFERNCE REFERNCE LABORATOR LABORATOR TRACHOMAT IES IES IS AMPLIFIED PROBE TQ URINLS 94074 [facility] HARPEL DIP 6 PHYSICIAN SHASTA STICK/TAB S GROUP LET REAGNT NON-AUTO MICRSCPY IADNA 76582 [facility] NEISSERIA 6 PHYSICIAN PHYSICIAN S GROUP S GROUP GONORRHOE AE DIRECT PROBE TQ IADNA 82257 BIO BIO NEISSERIA 6 REFERNCE REFERNCE LABORATOR LABORATOR GONORRHOE IES IES AE AMPLIFIED PROBE TQ IADNA NOS 55332 BIO BIO 6 REFERNCE REFERNCE AMPLIFIED LABORATOR LABORATOR PROBE TQ IES IES EACH ORGANISM THERAPEUT 64222 [facility] FRYMAN IC 6 PHYSICIAN EUG PROPHYLAC S GROUP TIC/DX INJECTION SUBQ/IM INJECTION J0696 [facility] FRYMAN 6 PHYSICIAN EUG CEFTRIAXO S GROUP NE SODIUM PER 250 MG MANUAL 15995 [facility] CANTRELL THERAPY 6 AMA TQS 1/> CHIROPRAC REGIONS TIC CENTE EACH 15 MINUTES CHIROPRAC 22309 EMMIE CANTRELL TIC 6 AMA MANIPULAT CHIROPRAC DOMINICK TX TIC CENTE SPINAL 3-4 REGIONS CHIROPRAC 84801 EMMIE CANTRELL TIC 6 AMA MANIPLTV CHIROPRAC TX TIC CENTE EXTRASPIN AL 1/> REGION MRI UPPER 74306 [facility] JAMES 6 MEDICAL EXTREMITY IMAGING OTH THAN ASS JT W/O CONTR MATRL APPL 93625 EMMIE CANTRELL MODALITY 6 AMA 1/> AREAS CHIROPRAC ELEC TIC CENTE STIMJ UNATTENDE D CHIROPRAC 35544 EMMIE CANTRELL TIC 6 AMA MANIPULAT CHIROPRAC DOMINICK TX TIC CENTE SPINAL 3-4 REGIONS MANUAL 52831 [place] CANTRELL THERAPY 6 AMA TQS 1/> CHIROPRAC REGIONS TIC CENTE EACH 15 MINUTES APPL 76174 [place] CANTRELL MODALITY 6 AMA 1/> AREAS CHIROPRAC TIC CENTE ULTRASOUN D EA 15 MIN APPL 87867 [place] CANTRELL MODALITY 6 AMA 1/> AREAS CHIROPRAC TIC CENTE ULTRASOUN D EA 15 MIN MANUAL 21645 [place] CANTRELL THERAPY 6 AMA TQS 1/> CHIROPRAC REGIONS TIC CENTE EACH 15 MINUTES CHIROPRAC 33933 [place] CANTRELL TIC 6 AMA MANIPULAT CHIROPRAC DOMINICK TX TIC CENTE SPINAL 3-4 REGIONS RADEX 50736 [place] MAZARIEGOS ALL HAND 2 6 MEDICAL VIEWS IMAGING ASS THERAPEUT 13744 [facility] IC 6 PHYSICIAN PHYSICIAN PROPHYLAC S GROUP S GROUP TIC/DX INJECTION SUBQ/IM APPL 55487 [place] CANTRELL MODALITY 6 AMA 1/> AREAS CHIROPRAC ELEC TIC CENTE STIMJ UNATTENDE D RADEX 53995 [place] MAZARIEGOS ALL WRIST 2 6 MEDICAL VIEWS IMAGING ASS APPL 85460 [place] CANTRELL MODALITY 6 AMA 1/> AREAS CHIROPRAC ELEC TIC CENTE STIMJ UNATTENDE D CHIROPRAC 05775 [place] CANTRELL TIC 6 AMA MANIPULAT CHIROPRAC DOMINICK TX TIC CENTE SPINAL 3-4 REGIONS MANUAL 50845 [place] CANTRELL THERAPY 6 AMA TQS 1/> CHIROPRAC REGIONS TIC CENTE EACH 15 MINUTES APPL 57431 [place] CANTRELL MODALITY 6 AMA 1/> AREAS CHIROPRAC TIC CENTE ULTRASOUN D EA 15 MIN APPL 77491 [place] CANTRELL MODALITY 6 AMA 1/> AREAS CHIROPRAC TIC CENTE ULTRASOUN D EA 15 MIN MANUAL 91170 [place] CANTRELL THERAPY 6 AMA TQS 1/> CHIROPRAC REGIONS TIC CENTE EACH 15 MINUTES CHIROPRAC 86422 [place] CANTRELL TIC 6 AMA MANIPULAT CHIROPRAC DOMINICK TX TIC CENTE SPINAL 3-4 REGIONS APPL 86580 [place] CANTRELL MODALITY 6 AMA 1/> AREAS CHIROPRAC ELEC TIC CENTE STIMJ UNATTENDE D APPL 83676 [place] CANTRELL MODALITY 6 AMA 1/> AREAS CHIROPRAC ELEC TIC CENTE STIMJ UNATTENDE D CHIROPRAC 47064 [place] CANTRELL TIC 6 AMA MANIPULAT CHIROPRAC DOMINICK TX TIC CENTE SPINAL 3-4 REGIONS MANUAL 06172 [place] CANTRELL THERAPY 6 AMA TQS 1/> CHIROPRAC REGIONS TIC CENTE EACH 15 MINUTES APPL 24744 [place] CANTRELL MODALITY 6 AMA 1/> AREAS CHIROPRAC TIC CENTE ULTRASOUN D EA 15 MIN APPL 31556 [place] CANTRELL MODALITY 6 AMA 1/> AREAS CHIROPRAC TIC CENTE ULTRASOUN D EA 15 MIN MANUAL 57666 [place] CANTRELL THERAPY 6 AMA TQS 1/> CHIROPRAC REGIONS TIC CENTE EACH 15 MINUTES CHIROPRAC 68984 [place] CANTRELL TIC 6 AMA MANIPULAT CHIROPRAC DOMINICK TX TIC CENTE SPINAL 3-4 REGIONS APPL 03759 [place] CANTRELL MODALITY 6 AMA 1/> AREAS CHIROPRAC ELEC TIC CENTE STIMJ UNATTENDE D APPL 59039 [place] CANTRELL MODALITY 6 AMA 1/> AREAS CHIROPRAC ELEC TIC CENTE STIMJ UNATTENDE D CHIROPRAC 38953 [place] CANTRELL TIC 6 AMA MANIPLTV CHIROPRAC TX TIC CENTE EXTRASPIN AL 1/> REGION CHIROPRAC 69835 [place] CANTRELL TIC 6 AMA MANIPULAT CHIROPRAC DOMINICK TX TIC CENTE SPINAL 3-4 REGIONS MANUAL 79869 [place] CANTRELL THERAPY 6 AMA TQS 1/> CHIROPRAC REGIONS TIC CENTE EACH 15 MINUTES APPL 28557 [place] CANTRELL MODALITY 6 AMA 1/> AREAS CHIROPRAC TIC CENTE ULTRASOUN D EA 15 MIN THERAPEUT 72082 [place] CANTRELL IC PX 1/> 6 AMA AREAS CHIROPRAC EACH 15 TIC CENTE MIN EXERCISES APPL 50012 [place] CANTRELL MODALITY 6 AMA 1/> AREAS CHIROPRAC TIC CENTE ULTRASOUN D EA 15 MIN CHIROPRAC 12083 [place] CANTRELL TIC 6 AMA MANIPULAT CHIROPRAC DOMINICK TX TIC CENTE SPINAL 3-4 REGIONS MANUAL 82296 [place] CANTRELL THERAPY 6 AMA TQS 1/> CHIROPRAC REGIONS TIC CENTE EACH 15 MINUTES CHIROPRAC 65351 [place] CANTRELL TIC 6 AMA MANIPLTV CHIROPRAC TX TIC CENTE EXTRASPIN AL 1/> REGION APPL 09880 [place] CANTRELL MODALITY 6 AMA 1/> AREAS CHIROPRAC ELEC TIC CENTE STIMJ UNATTENDE D APPL 57754 [place] CANTRELL MODALITY 6 AMA 1/> AREAS CHIROPRAC TRACTION TIC CENTE MECHANICA L APPL 66949 [place] CANTRELL MODALITY 6 AMA 1/> AREAS CHIROPRAC TRACTION TIC CENTE MECHANICA L CHIROPRAC 14122 [place] CANTRELL TIC 6 AMA MANIPLTV CHIROPRAC TX TIC CENTE EXTRASPIN AL 1/> REGION APPL 11336 [place] CANTRELL MODALITY 6 AMA 1/> AREAS CHIROPRAC ELEC TIC CENTE STIMJ UNATTENDE D CHIROPRAC 10985 [place] CANTRELL TIC 6 AMA MANIPULAT CHIROPRAC DOMINICK TX TIC CENTE SPINAL 3-4 REGIONS MANUAL 20914 [place] CANTRELL THERAPY 6 AMA TQS 1/> CHIROPRAC REGIONS TIC CENTE EACH 15 MINUTES APPL 14087 [place] CANTRELL MODALITY 6 AMA 1/> AREAS CHIROPRAC TIC CENTE ULTRASOUN D EA 15 MIN APPL 60923 [place] CANTRELL MODALITY 6 AMA 1/> AREAS CHIROPRAC TIC CENTE ULTRASOUN D EA 15 MIN CHIROPRAC 13590 [place] CANTRELL TIC 6 AMA MANIPULAT CHIROPRAC DOMINICK TX TIC CENTE SPINAL 3-4 REGIONS MANUAL 76136 [place] CANTRELL THERAPY 6 AMA TQS 1/> CHIROPRAC REGIONS TIC CENTE EACH 15 MINUTES APPL 42028 [place] CANTRELL MODALITY 6 AMA 1/> AREAS CHIROPRAC ELEC TIC CENTE STIMJ UNATTENDE D CHIROPRAC 65414 [place] CANTRELL TIC 6 AMA MANIPLTV CHIROPRAC TX TIC CENTE EXTRASPIN AL 1/> REGION APPL 11547 [place] CANTRELL MODALITY 6 AMA 1/> AREAS CHIROPRAC TRACTION TIC CENTE MECHANICA L APPL 96791 [place] CANTRELL MODALITY 6 AMA 1/> AREAS CHIROPRAC TRACTION TIC CENTE MECHANICA L CHIROPRAC 64484 [place] CANTRELL TIC 6 AMA MANIPLTV CHIROPRAC TX TIC CENTE EXTRASPIN AL 1/> REGION APPL 89245 [place] CANTRELL MODALITY 6 AMA 1/> AREAS CHIROPRAC ELEC TIC CENTE STIMJ UNATTENDE D CHIROPRAC 82725 [place] CANTRELL TIC 6 AMA MANIPULAT CHIROPRAC DOMINICK TX TIC CENTE SPINAL 3-4 REGIONS APPL 87439 [place] CANTRELL MODALITY 6 AMA 1/> AREAS CHIROPRAC TIC CENTE ULTRASOUN D EA 15 MIN MANUAL 79876 [place] CANTRELL THERAPY 6 AMA TQS 1/> CHIROPRAC REGIONS TIC CENTE EACH 15 MINUTES MANUAL 37347 [place] CANTRELL THERAPY 6 AMA TQS 1/> CHIROPRAC REGIONS TIC CENTE EACH 15 MINUTES APPL 92426 [place] CANTRELL MODALITY 6 AMA 1/> AREAS CHIROPRAC TIC CENTE ULTRASOUN D EA 15 MIN CHIROPRAC 65656 [place] CANTRELL TIC 6 AMA MANIPULAT CHIROPRAC DOMINICK TX TIC CENTE SPINAL 3-4 REGIONS APPL 02083 [place] CANTRELL MODALITY 6 AMA 1/> AREAS CHIROPRAC ELEC TIC CENTE STIMJ UNATTENDE D CHIROPRAC 75572 [place] CANTRELL TIC 6 AMA MANIPLTV CHIROPRAC TX TIC CENTE EXTRASPIN AL 1/> REGION APPL 84119 [place] CANTRELL MODALITY 6 AMA 1/> AREAS CHIROPRAC TRACTION TIC CENTE MECHANICA L RADEX 33799 [place] CANTRELL SPINE 6 AMA LUMBOSACR CHIROPRAC AL 2/3 TIC CENTE VIEWS APPL 58948 [place] CANTRELL MODALITY 6 AMA 1/> AREAS CHIROPRAC TRACTION TIC CENTE MECHANICA L CHIROPRAC 39868 [place] CANT[facility]LL TIC 6 AMA MANIPLTV CHIROPRAC TX TIC CENTE EXTRASPIN AL 1/> REGION APPL 44476 [place] CANT[place]LL MODALITY 6 AMA 1/> AREAS CHIROPRAC ELEC TIC CENTE STIMJ UNATTENDE D CHIROPRAC 22492 [place] CANTRELL TIC 6 AMA MANIPULAT CHIROPRAC DOMINICK TX TIC CENTE SPINAL 3-4 REGIONS APPL 05714 [place] CANTRELL MODALITY 6 AMA 1/> AREAS CHIROPRAC TIC CENTE ULTRASOUN D EA 15 MIN MANUAL 36890 [place] CANTRELL THERAPY 6 AMA TQS 1/> CHIROPRAC REGIONS TIC CENTE EACH 15 MINUTES APPL 78891 [place] CANTRELL MODALITY 6 AMA 1/> AREAS CHIROPRAC TIC CENTE ULTRASOUN D EA 15 MIN MANUAL 68664 [place] CANTRELL THERAPY 6 AMA TQS 1/> CHIROPRAC REGIONS TIC CENTE EACH 15 MINUTES APPL 08573 [place] CANTRELL MODALITY 6 AMA 1/> AREAS CHIROPRAC ELEC TIC CENTE STIMJ UNATTENDE D CHIROPRAC 50448 [place] CANTRELL TIC 6 AMA MANIPLTV CHIROPRAC TX TIC CENTE EXTRASPIN AL 1/> REGION APPL 56210 [place] CANTRELL MODALITY 6 AMA 1/> AREAS CHIROPRAC TRACTION TIC CENTE MECHANICA L CHIROPRAC 30530 [place] CANTRELL TIC 6 AMA MANIPULAT CHIROPRAC DOMINICK TX TIC CENTE SPINAL 3-4 REGIONS APPL 65886 [place] CANTRELL MODALITY 6 AMA 1/> AREAS CHIROPRAC TRACTION TIC CENTE MECHANICA L CHIROPRAC 12806 [place] CANTRELL TIC 6 AMA MANIPLTV CHIROPRAC TX TIC CENTE EXTRASPIN AL 1/> REGION APPL 42129 [place] CANTRELL MODALITY 6 AMA 1/> AREAS CHIROPRAC ELEC TIC CENTE STIMJ UNATTENDE D MANUAL 73605 [place] CANTRELL THERAPY 6 AMA TQS 1/> CHIROPRAC REGIONS TIC CENTE EACH 15 MINUTES CHIROPRAC 34961 [place] CANTRELL TIC 6 AMA MANIPULAT CHIROPRAC DOMINICK TX TIC CENTE SPINAL 3-4 REGIONS CHIROPRAC 36271 [place] CANTRELL TIC 6 AMA MANIPULAT CHIROPRAC DOMINICK TX TIC CENTE SPINAL 3-4 REGIONS MANUAL 01170 [place] CANTRELL THERAPY 6 AMA TQS 1/> [facility] REGIONS TIC CENTE EACH 15 MINUTES [facility] 50025 [place] TIC 6 AMA MANIPLTV [facility] TX TIC CENTE EXTRASPIN AL 1/> REGION APPL 44907 [place] MODALITY 6 AMA 1/> AREAS CHIROPRAC TRACTION TIC CENTE MECHANICA L APPL 72252 [place] MODALITY 6 1/> AREAS [facility]OP[facility] CHIROPRAC TRACTION TIC CENTE TIC CENTE MECHANICA L CHIROPRAC 21957 [place] TIC 6 AMA MANIPLTV CHIROP[facility]AC TX TIC CENTE EXTRASPIN AL 1/> REGION APPL 12741 [place] MODALITY 6 AMA 1/> AREAS [facility] ELEC TIC CENTE STIMJ UNATTENDE D MANUAL 34662 [place] THERAPY 6 AMA TQS 1/> [facility] REGIONS TIC CENTE EACH 15 MINUTES [facility]OP[facility]AC 59082 [place] TIC 6 AMA MANIPULAT CHIROPRAC DOM[place] TX TIC CENTE SPINAL 3-4 REGIONS APPL 82667 [place] MODALITY 6 AMA 1/> AREAS [facility]OP[facility] TIC CENTE ULTRASOUN D EA 15 MIN THERAPEUT 63991 [place] IC PX 1/> 6 AMA AREAS [facility] EACH 15 TIC CENTE MIN EXERCISES APPL 15080 [place] MODALITY 6 AMA 1/> AREAS [facility] TIC CENTE ULTRASOUN D EA 15 MIN [facility]OP[facility]AC 06513 [place] TIC 6 AMA MANIPULAT [facility]IR[facility] [place] TIC CENTE SPINAL 3-4 REGIONS MANUAL 53047 [place] THERAPY 6 AMA TQS 1/> CHIROPRAC REGIONS TIC CENTE EACH 15 MINUTES APPL 26661 [place] MODALITY 6 1/> AREAS [facility] CHIROPRAC ELEC TIC CENTE TIC CENTE STIMJ UNATTENDE D [facility]IROPRAC 85227 [place] TIC 6 AMA MANIPLTV CHIROPRAC TX TIC CENTE EXTRASPIN AL 1/> REGION APPL 00524 [place] MODALITY 6 AMA 1/> AREAS [facility] TRACTION TIC CENTE MECHANICA L APPL 20407 [place] MODALITY 6 1/> AREAS [facility]OPR[facility] CHIROPRAC TRACTION TIC CENTE TIC CENTE MECHANICA L CHIROPRAC 40125 [place] TIC 6 AMA MANIPLTV CHIROPRAC TX TIC CENTE EXTRASPIN AL 1/> REGION APPL 92031 [place] MODALITY 6 AMA 1/> AREAS [facility] ELEC TIC CENTE STIMJ UNATTENDE D MANUAL 36827 [place] THERAPY 6 AMA TQS 1/> CH[facility] REGIONS TIC CENTE EACH 15 MINUTES CHIROPRAC 62576 [place] TIC 6 AMA MANIPULAT CHIROPRAC DOMIN[place] TX TIC CENTE SPINAL 3-4 REGIONS APPL 50440 [place] MODALITY 6 AMA 1/> AREAS CHIROPRAC TIC CENTE ULTRASOUN D EA 15 MIN APPL 31583 [place] MODALITY 6 1/> AREAS CHIROPRAC CHIROPRAC TIC CENTE TIC CENTE ULTRASOUN D EA 15 MIN [facility]IROP[facility]AC 74917 [place] TIC 6 AMA MANIPULAT CHIROPRAC DOMINICK TX TIC CENTE SPINAL 3-4 REGIONS MANUAL 07811 [place] THERAPY 6 AMA TQS 1/> CHIROPRAC REGIONS TIC CENTE EACH 15 MINUTES CHIROPRAC 14841 EMMIE RENEE PRA TIC 6 MANIPLTV [facility] TX TIC CENTE EXTRASPIN AL 1/> REGION APPL 77010 [place] MODALITY 6 AMA 1/> AREAS [facility] ELEC TIC CENTE STIMJ UNATTENDE D APPL 77843 [place] MODALITY 6 AMA 1/> AREAS CHIROPRAC TRACTION TIC CENTE MECHANICA L APPL 51246 [place] MODALITY 6 1/> AREAS CHIROPRAC CHIROPRAC TRACTION TIC CENTE TIC CENTE MECHANICA L APPL 24456 [place] MODALITY 6 AMA 1/> AREAS CHIROPRAC ELEC TIC CENTE STIMJ UNATTENDE D [facility]IROPRAC 54708 [place] TIC 6 AMA MANIPLTV CHIROPRAC TX TIC CENTE EXTRASPIN AL 1/> REGION MANUAL 48968 [place] THERAPY 6 AMA TQS 1/> CHIROPRAC REGIONS TIC CENTE EACH 15 MINUTES CHIROPRAC 82476 [place] TIC 6 AMA MANIPULAT CHIROPRAC DOMINICK TX TIC CENTE SPINAL 3-4 REGIONS CHIROPRAC 44095 [place] TIC 6 AMA MANIPULAT CHIROPRAC DOMINICK TX TIC CENTE SPINAL 3-4 REGIONS MANUAL 28695 [place] THERAPY 6 AMA TQS 1/> CHIROPRAC REGIONS TIC CENTE EACH 15 MINUTES CHIROPRAC 31405 [place] TIC 6 AMA MANIPLTV CHIROPRAC TX TIC CENTE EXTRASPIN AL 1/> REGION APPL 19898 [place] MODALITY 6 AMA 1/> AREAS CHIROPRAC ELEC TIC CENTE STIMJ UNATTENDE D APPL 37797 [place] MODALITY 6 1/> AREAS CHIROPRAC CHIROPRAC TRACTION TIC CENTE TIC CENTE MECHANICA L APPL 32612 [place] MODALITY 6 AMA 1/> AREAS CHIROPRAC TRACTION TIC CENTE MECHANICA L APPL 54106 [place] CANTRELL MODALITY 6 AMA 1/> AREAS CHIROPRAC ELEC TIC CENTE STIMJ UNATTENDE D CHIROPRAC 54436 [place] CANT[place] TIC 6 AMA MANIPLTV CHIROPRAC TX TIC CENTE EXTRASPIN AL 1/> REGION MANUAL 97668 [place] CANTRE[place] THERAPY 6 AMA TQS 1/> CHIROPRAC REGIONS TIC CENTE EACH 15 MINUTES CHIROPRAC 87837 [place] CANRTELL TIC 6 AMA MANIPULAT CHIROPRAC DOMINICK TX TIC CENTE SPINAL 3-4 REGIONS CHIROPRAC 23118 [place] CANT[place] TIC 6 AMA MANIPULAT CHIROPRAC DOMINICK TX TIC CENTE SPINAL 3-4 REGIONS MANUAL 43298 [place] CANTRELL THERAPY 6 AMA TQS 1/> CHIROPRAC REGIONS T[place] [address] [place] CANTRELL 1/> AREAS 6 AMA EACH 15 CHIROPRAC MIN TIC CENTE NEUROMUSC REEDUCA CHIROPRAC 68283 [place] CANTRELL TIC 6 AMA MANIPLTV CHIROPRAC TX TIC CENTE EXTRASPIN AL 1/> REGION APPL 38173 [place] CANT[place]LL MODALITY 6 AMA 1/> AREAS CHIROPRAC ELEC TIC CENTE STIMJ UNATTENDE D APPL 38876 [place] CANTRELL MODALITY 6 AMA 1/> AREAS CHIROPRAC TRACTION TIC CENTE MECHANICA L APPL 17302 EMMIE CANTRELL MODALITY 6 AMA 1/> AREAS CHIROPRAC TRACTION TIC CENTE MECHANICA L APPL 24718 EMMIE CANTRELL MODALITY 6 AMA 1/> AREAS CHIROPRAC ELEC TIC CENTE STIMJ UNATTENDE D CHIROPRAC 59573 EMMIE CANTRELL TIC 6 AMA MANIPLTV CHIROPRAC TX TIC CENTE EXTRASPIN AL 1/> [place] [address] EMMIE CANTRELL 1/> AREAS 6 AMA EACH 15 CHIROPRAC MIN TIC CENTE NEUROMUSC REEDUCA MANUAL 82965 EMMIE CANTRELL THERAPY 6 AMA TQS 1/> CHIROPRAC REGIONS TIC CENTE EACH 15 MINUTES CHIROPRAC 24647 EMMIE CANTRELL TIC 6 AMA MANIPULAT CHIROPRAC DOMINICK TX TIC CENTE SPINAL 3-4 REGIONS IAADIADOO 90909 JEHOVAH'S WITNESS SHANIKA 6 [facility] GROUP A BLOOD 08240 ANTONIO ALVAREZ COUNT 6 [facility] COMPLETE INC INC AUTO&AUTO DIFRNTL WBC SEDIMENTA 61477 ANTONIO ALVAREZ TION RATE 6 [facility] RBC INC INC NON-AUTOM ATED 25 36831 ANTONIO ALVAREZ HYDROXY 6 [facility] INCLUDES INC INC FRACTIONS IF PERFORMED CREATINE 91780 ANTONIO ALVAREZ KINASE 6 [facility] [place] [address] ANTONIO ALVAREZ THYROXINE 6 [facility] TOTAL INC INC ANTINUCLE 67298 ANTONIO ALVAREZ AR 6 [facility] ANTIBODIE INC INC S TYSHAWN COMPREHEN 03423 ANTONIO ALVAREZ SIVE 6 [facility] [place] [address] ANTONIO ALVAREZ THYROID 6 [facility] STIMULATI INC INC NG HORMONE TSH C-REACTIV 13249 ANTONIO ALVAREZ E PROTEIN 6 [facility] INC INC DNA 95487 ANTONIO ALVAREZ ANTIBODY 6 [facility] NUNAPITCHUK/DO INC INC UBLE STRANDED COLLECTIO 47864 [facility] YOLANDE N VENOUS 6 PHYSICIAN STONE BLOOD S GROUP DOMINGO ALANIZ VENIPUNCT URE OPHTH 07685 [facility] 6 GRE GRE XM&EVAL COMPRE NEW PT 1/> VST INJECTION J0696 [facility] JEFFRY 6 PHYSICIAN HUGH CEFTRIAXO S GROUP NE SODIUM PER 250 MG THERAPEUT 09778 [facility] JEFFRY IC 6 PHYSICIAN HUGH PROPHYLAC S GROUP TIC/DX INJECTION SUBQ/IM INJECTION J1040 [facility] JEFFRY 6 PHYSICIAN HUGH METHYLPRE S GROUP DNISOLONE ACETATE 80 MG INJECTION J1040 [facility] JEFFRY 6 PHYSICIAN HUGH METHYLPRE S GROUP DNISOLONE ACETATE 80 MG THERAPEUT 39354 [facility] JEFFRY IC 6 PHYSICIAN HUGH PROPHYLAC S GROUP TIC/DX INJECTION SUBQ/IM INJECTION J0696 [facility] JEFFYR 6 PHYSICIAN HUGH CEFTRIAXO S GROUP NE SODIUM PER 250 MG INJECTION J1100 [facility] 6 [facility] SONE SODIUM PHOSPHATE 1 MG THERAPEUT 05306 [facility] IC 6 [facility] TIC/DX INJECTION SUBQ/IM INJECTION J05[address] G [place] E 114511 UNITS ANESTHESI 82876 [facility] SPARROW JADEN A 5 ANESTH INTRAPERI OF THE TONEAL BLUE LOWER ABD W/LAPS NOS TOTAL 76396 [facility] SCHULSTAD ABDOMINAL 5 PHYSICIAN CAM S GROUP HYSTERECT W/[place] L[place] [address] [facility], PICKLESIM SURG 5 [facility] ER [facility] PATHOLOGY GROSS&HUGH ROSCOPIC EXAM COLLECTIO 01266 ANTONIO ALVAREZ N VENOUS 5 [facility] BLOOD INC INC VENIPUNCT URE URNLS DIP 06928 ANTONIO ALVAREZ 5 [facility] STICK/TAB INC INC LET REAGENT AUTO MICROSCOP Y SMR PRIM 34976 ROSIBEL ROMAN SRC WET 5 JESSIE MEDLEY NFCT AGT CULTURE 89816 ANTONIO ALVAREZ BACTERIAL 5 [facility] INC INC QUANTTATI VE COLONY COUNT URINE SUSCEPTIB 45942 ANTONIO ALVAREZ LTY STDY 5 [facility] ANTIMICRB INC INC IAL MICRO/AGA R DILUTJ BLOOD 36816 ANTONIO ALVAREZ COUNT 5 [facility] COMPLETE INC INC AUTO&AUTO DIFRNTL WBC GONADOTRO 52322 ANTONIO ALVAREZ PIN 5 [facility] [place] [address] ANTONIO ALVAREZ TRANSVAGI 5 [facility] NAL INC INC URINLS 28776 ROSIBEL ROMAN DIP 5 JESSIE VEGAS STICK/[place] [address] TYLERTYSHAWN SALEEM 1/> AREAS 5 GAR EACH 15 CHIROPRAC MIN TIC CENTE NEUROMUSC REEDUCA APPL 16529 EMMIE SALEEM MODALITY 5 GAR 1/> AREAS CHIROPRAC TRACTION TIC CENTE MECHANICA L CHIROPRAC 79810 JOSÉJAREDTYSHAWN SALEEM TIC 5 GAR MANIPLTV CHIROPRAC TX TIC CENTE EXTRASPIN AL 1/> REGION CHIROPRAC 58219 CYNCUATE HARPER TIC 5 GAR MANIPULAT CHIROPRAC DOMINICK TX TIC CENTE SPINAL 1-2 REGIONS CHIROPRAC 33308 EMMIE HARPER TIC 5 GAR MANIPULAT CHIROPRAC DOMINICK TX TIC CENTE SPINAL 1-2 REGIONS CHIROPRAC 50415 EMMIE HARPER TIC 5 GAR MANIPLTV CHIROPRAC TX TIC CENTE EXTRASPIN AL 1/> [place] [address] JOSÉJAREDTYSHAWN SALEEM 1/> AREAS 5 GAR EACH 15 CHIROPRAC [place] [address] JOSÉJAREDTYSHAWN SALEEM 1/> AREAS 5 GAR EACH 15 [place] [address] CYNCUATE SALEEM 1/> AREAS 5 GAR EACH 15 [place] [address] EMMIE SALEEM 1/> AREAS 5 GAR EACH 15 CHIROPRAC MIN TIC CENTE NEUROMUSC REEDUCA CHIROPRAC 15007 EMMIE SALEEM TIC 5 GAR MANIPULAT CHIROPRAC DOMINICK TX TIC CENTE SPINAL 1-2 REGIONS URNLS DIP 90352 ANTONIO BELTRAN 5 [facility] STICK/[facility] LET RGNT NON-AUTO W/O MICRSCP COMPREHEN 99718 ANTONIO ALVAREZ SIVE 5 [facility] METABOLIC INC INC PANEL URNLS DIP 02131 ANTONIO ALVAREZ 5 [facility] STICK/TAB INC INC LET REAGENT AUTO MICROSCOP Y COLLECTIO 11191 ANTONIO Cevallos VENOUS 5 [facility] BLOOD INC INC VENIPUNCT URE BLOOD 83257 ANTONIO ALVAREZ COUNT 5 [facility] COMPLETE INC INC AUTO&AUTO DIFRNTL WBC BLOOD 59489 ANTONIO ALVAREZ COUNT 5 [facility] COMPLETE INC INC AUTO&[place] [address] [facility] COCHRANUTCHER ABDOMEN & 5 MEDICAL ARELY PELVIS IMAGING W/O ASS CONTRAST MATERIAL COMPREHEN 36809 ANTONIO ALVAREZ SIVE 5 [facility] METABOLIC INC INC PANEL URNLS DIP 01329 ANTONIO ALVAREZ 5 [facility] STICK/TAB INC [place] [address] ANTONIODIAZ ALVAREZ INFUSION 5 [facility] THERAPY/P INC INC ROPHYLAXI S /DX 1ST TO 1 HR COMPREHEN 13980 ANTONIO ALVAREZ SIVE 5 [facility] METABOLIC INC INC PANEL IMMUNOASS 26584 ANTONIODIAZ ALVAREZ AY NFCT 5 [facility] AGT ANTB INC INC QUAL/SEMI ANGIE 1 STEP BLOOD 57748 ANTONIODIAZ ALVAREZ COUNT 5 [facility] COMPLETE INC INC AUTO&AUTO DIFRNTL WBC UNCLASSIF J3490 ANTONIO ALVAREZ IED DRUGS 5 [facility] INC INC SMR PRIM 36687 ROSIBEL ROMAN SRC WET 5 JESSIE [place] NFCT AGT HGB 87201 ROSIBEL ROMAN QUANTITAT 5 JESSIE VEGAS DOMINICK TRANSCUTA NEOUS UNCLASSIF J3490 ANTONIO ALVAREZ IED DRUGS 5 [place] [address] ANTONIO ALVAREZ INFUSION 5 [facility] THERAPY INC INC PROPHYLAX IS/DX EA HOUR BLOOD 95475 ANTONIO ANTONIO COUNT 5 [facility] HEMOGLOBI INC INC N ANESTHESI 10813 [facility] VAGINAL 5 ANESTH LUCERO OF THE PROCEDURE BLUE W/BIOPSY NOS DILATION 55096 ANTONIO ANTONIO & 5 [facility] CURETTAGE INC INC DX&/THER NONOBSTET JACQUI BLOOD 01403 ANTONIO ALVAREZ COUNT 5 [facility] HEMATOCRI INC INC T INJECTION J2405 ANTONIO ANTONIO 5 [facility] ONDANSETR INC INC ON HCL PER 1 MG COLLECTIO 65581 ANTONIO ALVAREZ N VENOUS 5 [facility] [place]OD [place] [address] [facility], [facility], SURG 5 [facility] PATHOLOGY GROSS&HUGH ROSCOPIC EXAM COLLECTIO 90510 ANTONIO ALVAREZ N VENOUS 5 [facility] BLOOD INC INC VENIPUNCT URE URNLS DIP 29072 ANTONIO ALVAREZ 5 [facility] STICK/TAB INC INC LET REAGENT AUTO MICROSCOP Y BLOOD 72173 ANTONIO ALVAREZ COUNT 5 [facility] COMPLETE INC INC AUTO&AUTO DIFRNTL WBC URINE 36605 ANTONIO ALVAREZ 5 [facility] TEST INC INC VISUAL COLOR CMPRSN METHS CULTURE 87421 ANTONIO ALVAREZ BACTERIAL 5 [facility] INC INC QUANTTATI VE COLONY COUNT URINE BLOOD 16283 ANTONIO ALVAREZ COUNT 5 [facility] COMPLETE INC INC AUTO&[place] [address] [facility] TRANSVAGI 5 MEDICAL HARINDER NAL IMAGING ASS COLLECTIO 34976 ANTONIO ALVAREZ N VENOUS 5 [facility] BLOOD INC INC VENIPUNCT URE COMPUTER- 04412 ANTONIO ALVAREZ AIDED 5 [facility] DETECTION INC INC SCREENING MAMMOGRAP HY SCREENING G0202 ANTONIO ALVAREZ 5 [facility] MAMMOGRAP INC INC HY MICHELE INCL CAD WHEN PERFORMD Encounters Encounter Start End Date Code Location Performer Type Date OFFICE 57407 [facility] STONE OUTPATIEN 7 7 PHYSICIAN T VISIT S GROUP 25 MINUTES OFFICE 75053 [facility] OUTPATIEN 6 6 PHYSICIAN T VISIT S GROUP 15 MINUTES OFFICE 92662 [facility] [place] OUTPATIEN 6 6 PHYSICIAN T VISIT S GROUP 15 MINUTES HOSPITAL NATONIO - 6 6 [facility] OUTPATIEN INC T PERIODIC 42369 [facility] HARPEL PREVENTIV 6 6 PHYSICIAN SHASTA E MED EST S GROUP PATIENT 40-64YRS OFFICE 09665 [facility] [place] OUTPATIEN 6 6 PHYSICIAN EUG T VISIT S GROUP 15 MINUTES HOSPITAL ANTONIO - 6 6 [facility] OUTPATIEN INC T OFFICE 54126 [facility] [place] OUTPATIEN 6 6 PHYSICIAN T NEW 30 S GROUP MINUTES OFFICE 00584 [facility] [place] OUTPATIEN 6 6 PHYSICIAN EUG T VISIT S GROUP 15 MINUTES HOSPITAL ANTONIO - 6 6 [facility] OUTPATIEN INC T OFFICE 71783 [facility] [place] OUTPATIEN 6 6 PHYSICIAN T VISIT GROUP 25 MINUTES OFFICE 58850 [place] CANTRELL OUTPATIEN 6 6 AMA T VISIT CHIROPRAC 15 TIC CENTE MINUTES OFFICE 42153 [facility] GAGE OUTPATIEN 6 6 PHYSICIAN T VISIT GROUP 15 MINUTES EMERGENCY 04320 [place] VILLALOBOS [facility] 6 6 [facility]YSICIAN DEPARTMEN [facility] PLL[facility] T VISIT MODERATE SEVERITY HOSPITAL ANTONIO - 6 6 [facility] OUTPATIEN INC T OFFICE 10865 [place] CANTRELL OUTPATIEN 6 6 AMA T VISIT CHIROPRAC 15 TIC CENTE MINUTES EMERGENCY 57358 ANTONIO 6 6 [facility] DEPARTMEN INC T VISIT LOW/MODER SEVERITY OFFICE 47995 ANTONIO ALMONTE OUTPATIEN 6 6 [facility] T VISIT HOSPITAL 25 MINUTES OFFICE 60706 [facility] OUTPATIEN 6 6 [facility] T VISIT MEDICAL 15 GROUP MINUTES OFFICE 78745 [facility] YOLANDE OUTPATIEN 6 6 PHYSICIAN STONE T VISIT S GROUP PA-Zuleyma CORBIN 25 MINUTES [facility] ANTONIO - 6 6 [facility] OUTPATIEN INC T OFFICE 44479 ROSIBEL ROMAN OUTPATIEN 6 6 JESSIE BOTELLO SHASAT T VISIT 15 MINUTES OFFICE 14149 [facility] JEFFRY OUTPATIEN 6 6 PHYSICIAN HUGH T VISIT S GROUP 15 MINUTES OFFICE 70742 [facility] JEFFRY OUTPATIEN 6 6 PHYSICIAN HUGH T VISIT S GROUP 15 MINUTES OFFICE 81931 ANTONIO EASLEY OUTPATIEN 6 6 [facility] 15 MINUTES HOSPITAL ANTONIO - 5 6 [facility] INPATIENT [facility] ANTONIO - 5 5 [facility] OUTPATIEN INC T OFFICE 74867 ROSIBEL ROMAN OUTPATIEN 5 5 JESSIE BOTELLO SHASTA T VISIT 15 MINUTES [facility] ANTONIO - 5 5 [facility] OUTPATIEN INC T OFFICE 58226 ROSIBEL ROMAN OUTPATIEN 5 5 JESSIE BOTELLO SHASTA T VISIT 25 MINUTES OFFICE 77990 EMMIE SALEEM OUTPATIEN 5 5 GAR T VISIT CHIROPRAC 10 TIC CENTE MINUTES OFFICE 94952 ANTONIO BELTRAN OUTPATIEN 5 5 [facility] 15 MINUTES [facility] ANTONIO - 5 5 [facility] OUTPATIEN INC T EMERGENCY 44595 [place] JAMISON 5 5 PHYSICIAN HU[facility] DEPARTMEN S[facility] PLL[facility] T VISIT HIGH/URGE NT SEVERITY [facility]OSPITAL ANTONIO - 5 5 [facility] OUTPATIEN INC T EMERGENCY 20832 [facility] 5 [facility] T VISIT MODERATE SEVERITY EMERGENCY 06199 ANTONIO 5 5 [facility] DEPARTMEN INC T VISIT HIGH/URGE NT SEVERITY EMERGENCY 50305 ANTONIO JAVIER L 5 5 [facility] T VISIT P MODERATE SEVERITY HOSPITAL ANTONIO - 5 5 [facility] OUTPATIEN INC T OFFICE 03174 ROSIBEL ROMAN OUTPATIEN 5 5 JESSIE VEGAS T VISIT 15 MINUTES HOSPITAL ANTONIO - 5 5 [facility] OUTPATIEN INC T OFFICE 16801 ROSIBEL ROMAN OUTPATIEN 5 5 JESSIE VEGAS T VISIT 15 MINUTES HOSPITAL ANTONIO - 5 5 [facility] OUTPATI[facility] INC T HOSPITAL ANTONIO - 5 5 [facility] OUTPATIEN INC T OFFICE 84456 ROSIBEL ROMAN OUTPATIEN 5 5 JESSIE VEGAS T VISIT 15 MINUTES OFFICE 34121 ROSIBEL ROMAN OUTPATIEN 5 5 JESSIE VEGAS T VISIT 15 MINUTES HOSPITAL ANTONIO - 5 5 [facility] OUTPATIEN INC T Emergency KAMILLE Jamison MD (ER) 3 05:26 3 05:27 [facility]
--- OUTSIDE RECORDS SUMMARY | 2016-10-16 19:42 | External Medical Summary Rpt ---
Author Author , Organization [employer] Address Unknown Phone Unavailable Care Team Providers Care Toolman Name Role Phone [facility] Unavailable Unavailable MEDICAL GROUP, [facility] BEINEKE HARINDER, BEINEKE Unavailable [...] Unavailable JESSIE LOPEZ MD Unavailable Unavailable SHASTA [facility] Unavailable Unavailable INC, [facility], [facility] Unavailable Un[facility] P, [facility], Unavailable Unavailable [facility] CANTRELL AMA, CANTRELL Unavailable Unavailable [facility] Janes Jamison MD, Unavailable Unavailable Janes LOPEZ, Unavailable Unavailable EVENS LOPEZ, Unavailable Unavailable EVENS RAMÍREZ, Unavailable Unavailable HARPER RAMÍREZ [facility] Un[facility], Unavailable Unavailable PLL[facility], [facility], [facility] R[facility] PRA, RENEE PRA Unavailable Unavailable PICKLESIMER JR SANTOSH, Unavailable Unavailable [facility]LESIM[facility] JR SANTOSH SHANIKA HEN, SHANIKA Unavailable Unavailable HEN [place]UN[place]AM, CUNNINGHAM Unavailable Unavailable SADEK MOH, SADEK MOH Unavailable Unavailable SCHULSTAD CAM, Unavailable Unavailable SCHULSTAD CAM STONE, STONE Unavailable Unavailable SAVANNA MANZOF, SAVANNA Unavailable Unavailable LUCERO Purpose Continuity of Care Document - 12-11-2012 through 2016 Problems Code Diagnosis DOS Provider Status [id number] PAIN IN 07-10-2016 [place] RIGHT CHIROPRACTI SHOULDER [...] SOMATIC CHIROPRACTI DYSFUNCTION C CENTE LOWER EXTREMITY [id number] ACUTE 06-29-2016 [facility] SUPPURATIVE PHYSICIANS OM W/O GROUP RUPT EAR DRUM RT EAR R109 UNSPECIFIED 06-29-2016 [facility] ABDOMINAL PHYSICIANS PAIN GROUP J40 BRONCHITIS 05-25-2016 [facility] NOT PHYSICIANS SPECIFIED GROUP ACUTE OR CHRONIC J0100 ACUTE 05-22-2016 [facility] MAXILLARY PHYSICIANS SINUSITIS GROUP UNSPECIFIED Z1231 ENCOUNTER 05-01-2016 [place] [facility] MALIG IMAGING ASS NEOPLASM BREAST N951 MENOPAUSAL 04-25-2016 [facility] AND [facility]EM[facility] PHYSICIANS CLIMACTERIC GROUP STATES [id number] 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[facility] 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 EXAM PHYSICIANS GENERAL RTN GROUP W/O ABNORMAL FIND Z1212 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[facility] SCREENING PHYSICIANS MALIGNANT GROUP NEOPLASM RECTUM J0390 ACUTE 04-13-2016 [facility] TONSILLITIS PHYSICIANS GROUP UNSPECIFIED M542 CERVICALGIA 03-30-2016 [place] CHIROPRACTI C CENTE [id number] SPRAIN 03-30-2016 [place] LIGAMENTS CHIROPRACTI LUMBAR C CENTE SPINE INITIAL ENCOUNTER [id number] STRAIN 03-30-2016 [place] MUSCLE CHIROPRACTI FASCIA & C CENTE TENDON LOW BACK INITIAL Z71914 PAIN IN 03-28-2016 [facility] M7989 OTHER 03-28-2016 [place] SPECIFIED MEDICAL SOFT TISSUE IMAGING ASS DISORDERS 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 M654 RADIAL 03-15-2016 [facility] STYLOID PHYSICIANS TENOSYNOVIT GROUP IS DE QUERVAIN [id number] GANGLION 03-15-2016 [facility] RIGHT WRIST PHYSICIANS GROUP [id number] GANGLION 03-15-2016 [facility] LEFT WRIST PHYSICIANS GROUP J029 ACUTE 03-07-2016 [facility] PHARYNGITIS PHYSICIANS GROUP UNSPECIFIED [id number] PAIN IN 03-07-2016 [place] LEFT WRIST [facility] V68261 GANGLION 03-07-2016 [facility] RIGHT HAND PHYSICIANS GROUP M17358 GANGLION 03-07-2016 [facility] LEFT HAND PHYSICIANS GROUP [id number] PAIN IN 03-07-2016 [facility] M9903 SEGMENTAL & 01-21-2016 [place] SOMATIC CHIROPRACTI DYSFUNCTION C CENTE OF LUMBAR REGION M545 LOW BACK 01-11-2016 [place] PAIN CHIROPRACTI C CENTE I10 ESSENTIAL 01-04-2016 [facility] HYPERT[facility] N K1120 SIALOADENIT 01-04-2016 [facility], UNSPECIFIED PLLC K1121 ACUTE 01-04-2016 [facility] IS INC J329 CHRONIC 12-27-2015 [facility] J[facility]40 ACUTE 11-22-2015 [facility] MEDICAL UNSPECIFIED GROUP H6980 OTHER SPEC 11-09-2015 [facility] DISORDERS PHYSICIANS EUSTACHIAN GROUP TUBE UNS EAR Z85948 UNSPECIFIED 11-09-2015 [facility] ASTHMA PHYSICIANS UNCOMPLICAT GROUP ED R5383 OTHER 11-09-2015 [facility] FATIGUE PHYSICIANS GROUP Z840 FAMILY 11-09-2015 [facility] HISTORY PHYSICIANS DISEASES GROUP SKIN & SUBQ TISSUE Z0100 ENCOUNTER 11-04-2015 [facility] EXAM EYES & GRE VISION W/O ABNORMAL FIND H6690 OTITIS 09-22-2015 [facility] MEDIA PHYSICIANS UNSPECIFIED GROUP UNSPECIFIED EAR J040 ACUTE 09-22-2015 [facility] LARYNGITIS PHYSICIANS GROUP [id number] OTHER ACUTE 09-12-2015 [facility] DOMINICK OM RECURRENT BILAT J0190 ACUTE 09-12-2015 [facility] SINUSITIS [facility]PEC[facility]IED [facility]PITAL J209 ACUTE 09-12-2015 [facility] BRONCHITIS [facility] D259 LEIOMYOMA 06-03-2015 [facility] UNSPECIFIED K660 PERITONEAL 06-03-2015 [facility] ADHESIONS [facility] POSTPROC INC POSTINFECTI ON N736 FEMALE 06-03-2015 [facility] PELVIC PHYSICIANS PERITONEAL GROUP ADHESIONS POSTINFECTI VE N800 ENDOMETRIOS 06-03-2015 [facility] IS OF LLC UTERUS N831 CORPUS 06-03-2015 [facility] LUTEUM CYST LLC N8320 UNSPECIFIED 06-03-2015 [facility] OVARIAN PHYSICIANS CYSTS GROUP N856 INTRAUTERIN 06-03-2015 [facility] E SYNECHIAE LLC N938 OTHER SPEC 06-03-2015 [facility] ABNORMAL PHYSICIANS UTERINE & GROUP VAGINAL BLEEDING R102 PELVIC AND 06-03-2015 [facility] PERINEAL [facility] PAIN INC B9689 OTH SPEC 05-24-2015 [facility] Ceballos BACTERIAL JESSEI BOTELLO AGNT CAUSE DZ CLASSIFIED ELSW N760 ACUTE 05-24-2015 ROS[facility] ROMAN MD F47781 ENCOUNTER 05-24-2015 [facility] FOR OTHER [facility] PREPROCEDUR INC AL EXAMINATION N852 HYPERTROPHY 05-10-2015 [place] [facility] N9489 OTH COND 05-04-2015 [facility] Ceballos ASSOC W/EB ROMAN MD GEN ORGN & MENSTRUAL CYCL 4019 UNSPECIFIED 02-03-2015 [facility] N 51470 ASTHMA, 02-03-2015 [facility] UNSPECIFIED [facility] UNSPECIFIED STATUS 5990 URINARY 02-03-2015 [facility] TRACT [facility] SITE NOT SPECIFIED 16149 ABDOMINAL 01-05-2015 [facility] PAIN OTHER [facility] SPECIFIED INC SITE 54727 OTHER 11-03-2014 [place] SPECIFIED MEDICAL DISORDER OF IMAGING ASS KIDNEY AND URETER 85283 ABDOMINAL 11-03-2014 [facility] PAIN RIGHT [facility] UPPER INC QUADRANT V1301 PERSONAL 11-03-2014 [facility] HISTORY OF [facility] URINARY INC CALCULI 462 ACUTE 10-07-2014 [facility] PHARYNGITIS [facility] P 31927 ACUTE 10-07-2014 [place] LARYNGITIS, [facility] P MENTION OF OBSTRUCTIO 00734 UNSPECIFIED 09-14-2014 [facility] ROMAN MD AND VULVOVAGINI [...] STATES V7612 OTHER 06-16-2014 [facility] SCREENING [facility] MAMMOGRAM INC 401.9 401.9 12-11-2012 [place] HYPERTENSIO [facility] NOS Hospital 493.90 493.90 12-11-2012 [place] ASTHMA, [facility] UNSPECIFIED Hospital K11.21 ACUTE SIALOADENIT IS N73.6 [...] NO 00 2- 7- 00 01 ve DE 52 20 20 16 AI [place] 00 [...] MG #3 TA 93 [address] 8 ET DE 59 01 02 10 5 00 RI [...] NO 00 5- 0- 00 01 ve DE 52 20 20 16 AI [place] 00 [...] CY PA TC #3 H 93 8 DE 00 12 01 20 10 00 RI Ac OM 60 -2 -2 0. 00 TE ti ET 31 2- 0- 00 01 ve RAMIRES 58 20 20 0 16 AI ZI 65 16 17 36 D NE 4 14 PH -D AR M MA SY CY RU P #3 93 8 DE 00 12 01 10 5 00 RI [...] NO 00 5- 3- 00 01 ve DE 52 20 20 16 AI [place] 00 [...] Procedure DOS Code Location Performer Comment MANUAL 20057 [place] TUCKER THERAPY 7 TQS 1/> CHIROPRAC REGIONS TIC CENTE EACH 15 MINUTES CHIROPRAC 09214 [place] T[facility]ER TIC 7 MANIPULAT CHIROPRAC DOMINICK TX TIC CENTE SPINAL 1-2 REGIONS INJECTION J0696 [facility] STONE 7 PHYSICIAN CEFTRIAXO S GROUP NE SODIUM PER 250 MG URNLS DIP 67876 [facility] 7 PHYSICIAN PHYSICIAN STICK/TAB S GROUP S GROUP LET RGNT NON-AUTO W/O MICRSCP THERAPEUT 95929 [facility] STONE IC 7 PHYSICIAN PROPHYLAC S GROUP TIC/DX INJECTION SUBQ/IM THERAPEUT 17565 [facility] STONE IC 6 PHYSICIAN PROPHYLAC S GROUP TIC/DX INJECTION SUBQ/IM INJECTION J0696 [facility] STONE 6 PHYSICIAN CEFTRIAXO S GROUP NE SODIUM PER 250 MG INJECTION J0696 [facility] FRYMAN 6 PHYSICIAN CEFTRIAXO S GROUP NE SODIUM PER 250 MG THERAPEUT 61654 [facility] FRYMAN IC 6 PHYSICIAN PROPHYLAC S GROUP TIC/DX INJECTION SUBQ/IM COMPUTER- 39657 [facility] ALVARE[facility] AIDED 6 [facility] DETECTION INC INC SCREENING MAMMOGRAP HY SCREENING G0202 [facility] ALV[facility]Z 6 [facility] MAMMOGRAP INC INC HY MICHELE INCL CAD WHEN PERFORMD IADNA 69668 BIO BIO TRICHOMON 6 REFERNCE REFERNCE 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 VAGINALIS IES IES AMPLIFIED PROBE TECH CULTURE 58488 [facility] HARPEL CHLAMYDIA 6 PHYSICIAN SHASTA ANY S GROUP SOURCE CYTP C/V 32551 BIO BIO AUTO THIN 6 REFERNCE REFERNCE LYR LABORATOR LABORATOR PREPJ SCR IES IES MNL RESCR PHYS IADNA 43330 BIO BIO CHLAMYDIA 6 REFERNCE REFERNCE LABORATOR LABORATOR TRACHOMAT IES IES IS AMPLIFIED PROBE TQ URINLS 52057 [facility] HARPEL DIP 6 PHYSICIAN SHASTA STICK/TAB S GROUP LET REAGNT NON-AUTO MICRSCPY IADNA 75083 [facility] NEISSERIA 6 PHYSICIAN PHYSICIAN S GROUP S GROUP GONORRHOE AE DIRECT PROBE TQ IADNA 47188 BIO BIO NEISSERIA 6 REFERNCE REFERNCE LABORATOR LABORATOR GONORRHOE IES IES AE AMPLIFIED PROBE TQ IADNA NOS 98576 BIO BIO 6 REFERNCE REFERNCE AMPLIFIED LABORATOR LABORATOR PROBE TQ IES IES EACH ORGANISM THERAPEUT 32714 [facility] FRYMAN IC 6 PHYSICIAN EUG PROPHYLAC S GROUP TIC/DX INJECTION SUBQ/IM INJECTION J0696 [facility] FRYMAN 6 PHYSICIAN EUG CEFTRIAXO S GROUP NE SODIUM PER 250 MG MANUAL 58590 EMMIE CANTRELL THERAPY 6 AMA TQS 1/> CHIROPRAC REGIONS TIC CENTE EACH 15 MINUTES CHIROPRAC 18558 EMMIE CANTRELL TIC 6 AMA MANIPULAT CHIROPRAC DOMINICK TX TIC CENTE SPINAL 3-4 REGIONS CHIROPRAC 95584 EMMIE CANTRELL TIC 6 AMA MANIPLTV CHIROPRAC TX TIC CENTE EXTRASPIN AL 1/> REGION MRI UPPER 11934 [facility] JAMES 6 MEDICAL EXTREMITY IMAGING OTH THAN ASS JT W/O CONTR MATRL APPL 88483 EMMIE CANTRELL MODALITY 6 AMA 1/> AREAS CHIROPRAC ELEC TIC CENTE STIMJ UNATTENDE D CHIROPRAC 65953 EMMIE CANTRELL TIC 6 AMA MANIPULAT CHIROPRAC DOMINICK TX TIC CENTE SPINAL 3-4 REGIONS MANUAL 96320 [place] CANTRELL THERAPY 6 AMA TQS 1/> CHIROPRAC REGIONS TIC CENTE EACH 15 MINUTES APPL 57732 [place] CANTRELL MODALITY 6 AMA 1/> AREAS CHIROPRAC TIC CENTE ULTRASOUN D EA 15 MIN APPL 49263 [place] CANTRELL MODALITY 6 AMA 1/> AREAS CHIROPRAC TIC CENTE ULTRASOUN D EA 15 MIN MANUAL 24356 [place] CANTRELL THERAPY 6 AMA TQS 1/> CHIROPRAC REGIONS TIC CENTE EACH 15 MINUTES CHIROPRAC 07049 [place] CANTRELL TIC 6 AMA MANIPULAT CHIROPRAC DOMINICK TX TIC CENTE SPINAL 3-4 REGIONS RADEX 90226 [place] MAZARIEGOS ALL HAND 2 6 MEDICAL VIEWS IMAGING ASS THERAPEUT 04091 [facility] IC 6 PHYSICIAN PHYSICIAN PROPHYLAC S GROUP S GROUP TIC/DX INJECTION SUBQ/IM APPL 31748 [place] CANTRELL MODALITY 6 AMA 1/> AREAS CHIROPRAC ELEC TIC CENTE STIMJ UNATTENDE D RADEX 78747 [place] MAZARIEGOS ALL WRIST 2 6 MEDICAL VIEWS IMAGING ASS APPL 80385 [place] CANTRELL MODALITY 6 AMA 1/> AREAS CHIROPRAC ELEC TIC CENTE STIMJ UNATTENDE D CHIROPRAC 32323 [place] CANTRELL TIC 6 AMA MANIPULAT CHIROPRAC DOMINICK TX TIC CENTE SPINAL 3-4 REGIONS MANUAL 02976 [place] CANTRELL THERAPY 6 AMA TQS 1/> CHIROPRAC REGIONS TIC CENTE EACH 15 MINUTES APPL 97025 [place] CANTRELL MODALITY 6 AMA 1/> AREAS CHIROPRAC TIC CENTE ULTRASOUN D EA 15 MIN APPL 27618 [place] CANTRELL MODALITY 6 AMA 1/> AREAS CHIROPRAC TIC CENTE ULTRASOUN D EA 15 MIN MANUAL 83579 [place] CANTRELL THERAPY 6 AMA TQS 1/> CHIROPRAC REGIONS TIC CENTE EACH 15 MINUTES CHIROPRAC 83219 [place] CANTRELL TIC 6 AMA MANIPULAT CHIROPRAC DOMINICK TX TIC CENTE SPINAL 3-4 REGIONS APPL 32773 [place] CANTRELL MODALITY 6 AMA 1/> AREAS CHIROPRAC ELEC TIC CENTE STIMJ UNATTENDE D APPL 76632 [place] CANTRELL MODALITY 6 AMA 1/> AREAS CHIROPRAC ELEC TIC CENTE STIMJ UNATTENDE D CHIROPRAC 58615 [place] CANTRELL TIC 6 AMA MANIPULAT CHIROPRAC DOMINICK TX TIC CENTE SPINAL 3-4 REGIONS MANUAL 47368 [place] CANTRELL THERAPY 6 AMA TQS 1/> CHIROPRAC REGIONS TIC CENTE EACH 15 MINUTES APPL 52735 [place] CANTRELL MODALITY 6 AMA 1/> AREAS CHIROPRAC TIC CENTE ULTRASOUN D EA 15 MIN APPL 33503 [place] CANTRELL MODALITY 6 AMA 1/> AREAS CHIROPRAC TIC CENTE ULTRASOUN D EA 15 MIN MANUAL 66844 [place] CANTRELL THERAPY 6 AMA TQS 1/> CHIROPRAC REGIONS TIC CENTE EACH 15 MINUTES CHIROPRAC 26755 [place] CANTRELL TIC 6 AMA MANIPULAT CHIROPRAC DOMINICK TX TIC CENTE SPINAL 3-4 REGIONS APPL 98167 [place] CANTRELL MODALITY 6 AMA 1/> AREAS CHIROPRAC ELEC TIC CENTE STIMJ UNATTENDE D APPL 79733 [place] CANTRELL MODALITY 6 AMA 1/> AREAS CHIROPRAC ELEC TIC CENTE STIMJ UNATTENDE D CHIROPRAC 74729 [place] CANTRELL TIC 6 AMA MANIPLTV CHIROPRAC TX TIC CENTE EXTRASPIN AL 1/> REGION CHIROPRAC 11155 [place] CANTRELL TIC 6 AMA MANIPULAT CHIROPRAC DOMINICK TX TIC CENTE SPINAL 3-4 REGIONS MANUAL 13331 [place] CANTRELL THERAPY 6 AMA TQS 1/> CHIROPRAC REGIONS TIC CENTE EACH 15 MINUTES APPL 57968 [place] CANTRELL MODALITY 6 AMA 1/> AREAS CHIROPRAC TIC CENTE ULTRASOUN D EA 15 MIN THERAPEUT 60034 [place] CANTRELL IC PX 1/> 6 AMA AREAS CHIROPRAC EACH 15 TIC CENTE MIN EXERCISES APPL 41273 [place] CANTRELL MODALITY 6 AMA 1/> AREAS CHIROPRAC TIC CENTE ULTRASOUN D EA 15 MIN CHIROPRAC 72474 [place] CANTRELL TIC 6 AMA MANIPULAT CHIROPRAC DOMINICK TX TIC CENTE SPINAL 3-4 REGIONS MANUAL 08295 [place] CANTRELL THERAPY 6 AMA TQS 1/> CHIROPRAC REGIONS TIC CENTE EACH 15 MINUTES CHIROPRAC 40111 [place] CANTRELL TIC 6 AMA MANIPLTV CHIROPRAC TX TIC CENTE EXTRASPIN AL 1/> REGION APPL 62944 [place] CANTRELL MODALITY 6 AMA 1/> AREAS CHIROPRAC ELEC TIC CENTE STIMJ UNATTENDE D APPL 64818 [place] CANTRELL MODALITY 6 AMA 1/> AREAS CHIROPRAC TRACTION TIC CENTE MECHANICA L APPL 86038 [place] CATNRELL MODALITY 6 AMA 1/> AREAS CHIROPRAC TRACTION TIC CENTE MECHANICA L CHIROPRAC 79299 [place] CANTRELL TIC 6 AMA MANIPLTV CHIROPRAC TX TIC CENTE EXTRASPIN AL 1/> REGION APPL 17729 [place] CANTRELL MODALITY 6 AMA 1/> AREAS CHIROPRAC ELEC TIC CENTE STIMJ UNATTENDE D CHIROPRAC 98435 [place] CANTRELL TIC 6 AMA MANIPULAT CHIROPRAC DOMINICK TX TIC CENTE SPINAL 3-4 REGIONS MANUAL 79874 [place] CANTRELL THERAPY 6 AMA TQS 1/> CHIROPRAC REGIONS TIC CENTE EACH 15 MINUTES APPL 32269 [place] CANTRELL MODALITY 6 AMA 1/> AREAS CHIROPRAC TIC CENTE ULTRASOUN D EA 15 MIN APPL 51728 [place] CANTRELL MODALITY 6 AMA 1/> AREAS CHIROPRAC TIC CENTE ULTRASOUN D EA 15 MIN CHIROPRAC 44539 [place] CANTRELL TIC 6 AMA MANIPULAT CHIROPRAC DOMINICK TX TIC CENTE SPINAL 3-4 REGIONS MANUAL 60656 [place] CANTRELL THERAPY 6 AMA TQS 1/> CHIROPRAC REGIONS TIC CENTE EACH 15 MINUTES APPL 99383 [place] CANTRELL MODALITY 6 AMA 1/> AREAS CHIROPRAC ELEC TIC CENTE STIMJ UNATTENDE D CHIROPRAC 32155 [place] CANTRELL TIC 6 AMA MANIPLTV CHIROPRAC TX TIC CENTE EXTRASPIN AL 1/> REGION APPL 11118 [place] CANTRELL MODALITY 6 AMA 1/> AREAS CHIROPRAC TRACTION TIC CENTE MECHANICA L APPL 06429 [place] CANTRELL MODALITY 6 AMA 1/> AREAS CHIROPRAC TRACTION TIC CENTE MECHANICA L CHIROPRAC 69286 [place] CANTRELL TIC 6 AMA MANIPLTV CHIROPRAC TX TIC CENTE EXTRASPIN AL 1/> REGION APPL 48411 [place] CANTRELL MODALITY 6 AMA 1/> AREAS CHIROPRAC ELEC TIC CENTE STIMJ UNATTENDE D CHIROPRAC 46860 [place] CANTRELL TIC 6 AMA MANIPULAT CHIROPRAC DOMINICK TX TIC CENTE SPINAL 3-4 REGIONS APPL 27767 [place] CANTRELL MODALITY 6 AMA 1/> AREAS CHIROPRAC TIC CENTE ULTRASOUN D EA 15 MIN MANUAL 46848 [place] CANTRELL THERAPY 6 AMA TQS 1/> CHIROPRAC REGIONS TIC CENTE EACH 15 MINUTES MANUAL 09026 [place] CANTRELL THERAPY 6 AMA TQS 1/> CHIROPRAC REGIONS TIC CENTE EACH 15 MINUTES APPL 75479 [place] CANTRELL MODALITY 6 AMA 1/> AREAS CHIROPRAC TIC CENTE ULTRASOUN D EA 15 MIN CHIROPRAC 80609 [place] CANTRELL TIC 6 AMA MANIPULAT CHIROPRAC DOMINICK TX TIC CENTE SPINAL 3-4 REGIONS APPL 94002 [place] CANTRELL MODALITY 6 AMA 1/> AREAS CHIROPRAC ELEC TIC CENTE STIMJ UNATTENDE D CHIROPRAC 20459 [place] CANTRELL TIC 6 AMA MANIPLTV CHIROPRAC TX TIC CENTE EXTRASPIN AL 1/> REGION APPL 06347 [place] CANTRELL MODALITY 6 AMA 1/> AREAS CHIROPRAC TRACTION TIC CENTE MECHANICA L RADEX 20630 [place] CANTRELL SPINE 6 AMA LUMBOSACR CHIROPRAC AL 2/3 TIC CENTE VIEWS APPL 13878 [place] CANTRELL MODALITY 6 AMA 1/> AREAS CHIROPRAC TRACTION TIC CENTE MECHANICA L CHIROPRAC 83282 [place] CANTRELL TIC 6 AMA MANIPLTV CHIROPRAC TX TIC CENTE EXTRASPIN AL 1/> REGION APPL 15184 [place] CANTRELL MODALITY 6 AMA 1/> AREAS CHIROPRAC ELEC TIC CENTE STIMJ UNATTENDE D CHIROPRAC 65798 [place] CANTRELL TIC 6 AMA MANIPULAT CHIROPRAC DOMINICK TX TIC CENTE SPINAL 3-4 REGIONS APPL 81483 [place] CANTRELL MODALITY 6 AMA 1/> AREAS CHIROPRAC TIC CENTE ULTRASOUN D EA 15 MIN MANUAL 84183 [place] CANTRELL THERAPY 6 AMA TQS 1/> CHIROPRAC REGIONS TIC CENTE EACH 15 MINUTES APPL 98446 [place] CANTRELL MODALITY 6 AMA 1/> AREAS CHIROPRAC TIC CENTE ULTRASOUN D EA 15 MIN MANUAL 81442 [place] CANTRELL THERAPY 6 AMA TQS 1/> CHIROPRAC REGIONS TIC CENTE EACH 15 MINUTES APPL 60022 [place] CANTRELL MODALITY 6 AMA 1/> AREAS CHIROPRAC ELEC TIC CENTE STIMJ UNATTENDE D CHIROPRAC 45881 [place] CANTRELL TIC 6 AMA MANIPLTV CHIROPRAC TX TIC CENTE EXTRASPIN AL 1/> REGION APPL 88394 [place] CANTRELL MODALITY 6 AMA 1/> AREAS CHIROPRAC TRACTION TIC CENTE MECHANICA L CHIROPRAC 44472 [place] CANTRELL TIC 6 AMA MANIPULAT CHIROPRAC DOMINICK TX TIC CENTE SPINAL 3-4 REGIONS APPL 25135 [place] CANTRELL MODALITY 6 AMA 1/> AREAS CHIROPRAC TRACTION TIC CENTE MECHANICA L CHIROPRAC 79344 [place] CANTRELL TIC 6 AMA MANIPLTV CHIROPRAC TX TIC CENTE EXTRASPIN AL 1/> REGION APPL 84050 [place] CANTRELL MODALITY 6 AMA 1/> AREAS CHIROPRAC ELEC TIC CENTE STIMJ UNATTENDE D MANUAL 39783 [place] CANTRELL THERAPY 6 AMA TQS 1/> CHIROPRAC REGIONS TIC CENTE EACH 15 MINUTES CHIROPRAC 75837 [place] CANTRELL TIC 6 AMA MANIPULAT CHIROPRAC DOMINICK TX TIC CENTE SPINAL 3-4 REGIONS CHIROPRAC 19558 [place] CANTRELL TIC 6 AMA MANIPULAT CHIROPRAC DOMINICK TX TIC CENTE SPINAL 3-4 REGIONS MANUAL 94502 [place] CANTRELL THERAPY 6 AMA TQS 1/> CHIROPRAC REGIONS TIC CENTE EACH 15 MINUTES CHIROPRAC 21272 [place] CANTRELL TIC 6 AMA MANIPLTV CHIROPRAC TX TIC CENTE EXTRASPIN AL 1/> REGION APPL 17973 [place] CANTRELL MODALITY 6 AMA 1/> AREAS CHIROPRAC TRACTION TIC CENTE MECHANICA L APPL 68554 [place] MODALITY 6 1/> AREAS CHIROPRAC CHIROPRAC TRACTION TIC CENTE TIC CENTE MECHANICA L CHIROPRAC 71760 [place] CANTRELL TIC 6 AMA MANIPLTV CHIROPRAC TX TIC CENTE EXTRASPIN AL 1/> REGION APPL 06702 [place] CANT[place] MODALITY 6 AMA 1/> AREAS [facility] ELEC TIC CENTE STIMJ UNATTENDE D MANUAL 98774 [place] CANT[place] THERAPY 6 AMA TQS 1/> CHIROPRAC REGIONS TIC CENTE EACH 15 MINUTES [place]AC 04038 [place] CANT[place] TIC 6 AMA MANIPULAT CHIROPRAC DOMINICK TX TIC CENTE SPINAL 3-4 REGIONS APPL 06231 [place] CANTRE[place] MODALITY 6 AMA 1/> AREAS [facility] TIC CENTE ULTRASOUN D EA 15 MIN THERAPEUT 19767 [place] CANTRE[place] IC PX 1/> 6 AMA AREAS CHIROPR[facility] EACH 15 TIC CENTE MIN EXERCISES APPL 05949 [place] CANT[place] MODALITY 6 AMA 1/> AREAS [facility] TIC CENTE ULTRASOUN D EA 15 MIN CHIROPRAC 65371 [place] CANT[place] TIC 6 AMA MANIPULAT CHIROPRAC DOMINICK TX TIC CENTE SPINAL 3-4 REGIONS MANUAL 15455 [place] CANT[place] THERAPY 6 AMA TQS 1/> CHIROPRAC REGIONS TIC CENTE EACH 15 MINUTES APPL 45631 [place] MODALITY 6 1/> AREAS [facility] CHIROPRAC ELEC TIC CENTE TIC CENTE STIMJ UNATTENDE D CHIROPRAC 66910 [place] CANT[place] TIC 6 AMA MANIPLTV CHIROPRAC TX TIC CENTE EXTRASPIN AL 1/> REGION APPL 12105 [place] CANT[place] MODALITY 6 AMA 1/> AREAS CHIROPRAC TRACTION TIC CENTE MECHANICA L APPL 47946 [place] MODALITY 6 1/> AREAS CHIROPRAC CHIROPRAC TRACTION TIC CENTE TIC CENTE MECHANICA L CHIROPRAC 03263 [place] CANTRE[place] TIC 6 AMA MANIPLTV CHIROPRAC TX TIC CENTE EXTRASPIN AL 1/> REGION APPL 12626 [place] CANT[place] MODALITY 6 AMA 1/> AREAS CHIROPRAC ELEC TIC CENTE STIMJ UNATTENDE D MANUAL 94413 [place] CANT[place] THERAPY 6 AMA TQS 1/> CHIROPRAC REGIONS TIC CENTE EACH 15 MINUTES CHIROPRAC 96929 [place] CANT[place] TIC 6 AMA MANIPULAT CHIROPRAC DOMINICK TX TIC CENTE SPINAL 3-4 REGIONS APPL 85434 [place] CANTRE[place] MODALITY 6 AMA 1/> AREAS CHIROPRAC TIC CENTE ULTRASOUN D EA 15 MIN APPL 41201 [place] MODALITY 6 1/> AREAS CHIROPRAC CHIROPRAC TIC CENTE TIC CENTE ULTRASOUN D EA 15 MIN CHIROPRAC 53806 [place] CANTRELL TIC 6 AMA MANIPULAT CHIROPRAC DOMINICK TX TIC CENTE SPINAL 3-4 REGIONS MANUAL 09605 [place] CANTRE[place] THERAPY 6 AMA TQS 1/> CHIROPRAC REGIONS TIC CENTE EACH 15 MINUTES CHIROPRAC 23166 EMMIE RENEE PRA TIC 6 MANIPLTV CHIROPRAC TX TIC CENTE EXTRASPIN AL 1/> REGION APPL 12080 [place] CANT[place] MODALITY 6 AMA 1/> AREAS CHIROPRAC ELEC TIC CENTE STIMJ UNATTENDE D APPL 62189 [place] CANT[place] MODALITY 6 AMA 1/> AREAS CHIROPRAC TRACTION TIC CENTE MECHANICA L APPL 60602 [place] MODALITY 6 1/> AREAS CHIROPRAC CHIROPRAC TRACTION TIC CENTE TIC CENTE MECHANICA L APPL 16331 [place] CANT[place] MODALITY 6 AMA 1/> AREAS CHIROPRAC ELEC TIC CENTE STIMJ UNATTENDE D CHIROPRAC 22587 [place] CANT[place] TIC 6 AMA MANIPLTV CHIROPRAC TX TIC CENTE EXTRASPIN AL 1/> REGION MANUAL 53288 [place] CANTRE[place] THERAPY 6 AMA TQS 1/> CHIROPRAC REGIONS TIC CENTE EACH 15 MINUTES CHIROPRAC 46978 [place] CANT[place] TIC 6 AMA MANIPULAT CHIROPRAC DOMINICK TX TIC CENTE SPINAL 3-4 REGIONS CHIROPRAC 13385 [place] CANTRE[place] TIC 6 AMA MANIPULAT CHIROPRAC DOMINICK TX TIC CENTE SPINAL 3-4 REGIONS MANUAL 15502 [place] CANTRE[place] THERAPY 6 AMA TQS 1/> CHIROPRAC REGIONS TIC CENTE EACH 15 MINUTES CHIROPRAC 37149 [place] CANT[place] TIC 6 AMA MANIPLTV CHIROPRAC TX TIC CENTE EXTRASPIN AL 1/> REGION APPL 17906 [place] CANTRE[place] MODALITY 6 AMA 1/> AREAS CHIROPRAC ELEC TIC CENTE STIMJ UNATTENDE D APPL 72262 [place] MODALITY 6 1/> AREAS CHIROPRAC CHIROPRAC TRACTION TIC CENTE TIC CENTE MECHANICA L APPL 31354 [place] CANTRELL MODALITY 6 AMA 1/> AREAS CHIROPRAC TRACTION TIC CENTE MECHANICA L APPL 64026 [place] CANTRE[place] MODALITY 6 AMA 1/> AREAS CHIROPRAC ELEC TIC CENTE STIMJ UNATTENDE D CHIROPRAC 15743 [place] CANTRE[place] TIC 6 AMA MANIPLTV CHIROPRAC TX TIC CENTE EXTRASPIN AL 1/> REGION MANUAL 63706 [place] CANTRE[place] THERAPY 6 AMA TQS 1/> CHIROPRAC REGIONS TIC CENTE EACH 15 MINUTES CHIROPRAC 33006 [place] CANTRELL TIC 6 AMA MANIPULAT CHIROPRAC DOMINICK TX TIC CENTE SPINAL 3-4 REGIONS [place]OPRAC 16523 [place] CANTRELL TIC 6 AMA MANIPULAT CHIROPRAC [place] TIC CENT[place] SPINAL 3-4 REGIONS MANUAL 62063 [place] CANTRELL THERAPY 6 AMA TQS 1/> CHIROPRAC REGIONS TIC CENT[place] 15 [place] [address] [place] CANTRELL 1/> AREAS 6 AMA EACH 15 CHIROPRAC MIN TIC CENTE NEUROMUSC REEDUCA CHIROPRAC 26412 [place] CANTRELL TIC 6 AMA MANIPLTV CHIROPRAC TX TIC CENTE EXTRASPIN AL 1/> REGION APPL 37354 [place] CANTRELL MODALITY 6 AMA 1/> AREAS CHIROPRAC ELEC TIC CENTE STIMJ UNATTENDE D APPL 63240 [place] CANTRELL MODALITY 6 AMA 1/> AREAS CHIROPRAC TRACTION TIC CENTE MECHANICA L APPL 14248 EMMIE CANTRELL MODALITY 6 AMA 1/> AREAS CHIROPRAC TRACTION TIC CENTE MECHANICA L APPL 62049 EMMIE CANTRELL MODALITY 6 AMA 1/> AREAS CHIROPRAC ELEC TIC CENTE STIMJ UNATTENDE D CHIROPRAC 49245 EMMIE CANTRELL TIC 6 AMA MANIPLTV CHIROPRAC TX TIC CENTE EXTRASPIN AL 1/> [place] [address] EMMIE CANTRELL 1/> AREAS 6 AMA EACH 15 CHIROPRAC MIN TIC CENTE NEUROMUSC REEDUCA MANUAL 16838 EMMIE CANTRELL THERAPY 6 AMA TQS 1/> CHIROPRAC REGIONS TIC CENTE EACH 15 MINUTES CHIROPRAC 87484 EMMIE CANTRELL TIC 6 AMA MANIPULAT CHIROPRAC DOMINICK TX TIC CENTE SPINAL 3-4 REGIONS IAADIADOO 73303 TEMPLE SHANIKA 6 [facility] CC[facility] GROUP GROUP A BLOOD 43460 ANTONIO ALVAREZ COUNT 6 [facility] COMPLETE INC INC AUTO&AUTO DIFRNTL WBC SEDIMENTA 59331 ANTONIO ALVAREZ TION RATE 6 [facility] RBC INC INC NON-AUTOM ATED 25 84718 ANTONIO ALVAREZ HYDROXY 6 [facility] INCLUDES INC INC FRACTIONS IF PERFORMED CREATINE 02328 ANTONIO ALVAREZ KINASE 6 [facility] [place] [address] ANTONIO ALVAREZ THYROXINE 6 [facility] TOTAL INC INC ANTINUCLE 90440 ANTONIO ALVAREZ AR 6 [facility] ANTIBODIE INC INC S TYSHAWN COMPREHEN 32887 ANTONIO ALVAREZ SIVE 6 [facility] [address] ANTONIO ALVAREZ THYROID 6 [facility] STIMULATI INC INC NG HORMONE TSH C-REACTIV 06488 ANTONIO ALVAREZ E PROTEIN 6 [facility] INC INC DNA 01449 ANTONIO ALVAREZ ANTIBODY 6 [facility] YOMBA SHOSHONE/DO INC INC UBLE STRANDED COLLECTIO 88881 [facility] YOLANDE N VENOUS 6 PHYSICIAN STONE BLOOD S GROUP DOMINGO ALANIZ VENIPUNCT URE OPHTH 95503 [facility] 6 GRE GRE XM&EVAL COMPRE NEW PT 1/> VST INJECTION J0696 [facility] JEFFRY 6 PHYSICIAN HUGH CEFTRIAXO S GROUP NE SODIUM PER 250 MG THERAPEUT 16017 [facility] JEFFRY IC 6 PHYSICIAN HUGH PROPHYLAC S GROUP TIC/DX INJECTION SUBQ/IM INJECTION J1040 [facility] JEFFRY 6 PHYSICIAN HUGH METHYLPRE S GROUP DNISOLONE ACETATE 80 MG INJECTION J1040 [facility] JEFFRY 6 PHYSICIAN HUGH METHYLPRE S GROUP DNISOLONE ACETATE 80 MG THERAPEUT 25810 [facility] JEFFRY IC 6 PHYSICIAN HUGH PROPHYLAC S GROUP TIC/DX INJECTION SUBQ/IM INJECTION J0696 [facility] JEFFRY 6 PHYSICIAN HUGH CEFTRIAXO S GROUP NE SODIUM PER 250 MG INJECTION J1100 [facility] 6 [facility] SONE SODIUM PHOSPHATE 1 MG THERAPEUT 78647 [facility] IC 6 [facility] TIC/DX INJECTION SUBQ/IM INJECTION [id number] G [place] E 227269 UNITS ANESTHESI 94137 [facility] SPARROW JADEN A 5 ANESTH INTRAPERI OF THE TONEAL BLUE LOWER ABD W/LAPS NOS TOTAL 95848 [facility] SCHULSTAD ABDOMINAL 5 PHYSICIAN CAM S GROUP HYSTERECT W/[place] [address] [facility], PICKLESIM SURG 5 [facility] ER [facility] PATHOLOGY GROSS&HUGH ROSCOPIC EXAM COLLECTIO 86816 ANTONIO ALVAREZ N VENOUS 5 [facility] BLOOD INC INC VENIPUNCT URE URNLS DIP 41347 ANTONIO ALVAREZ 5 [facility] STICK/TAB INC INC LET REAGENT AUTO MICROSCOP Y SMR PRIM 26259 ROSIBEL ROMAN SRC WET 5 JESSIE MEDLEY NFCT AGT CULTURE 54463 ANTONIO ALVAREZ BACTERIAL 5 [facility] INC INC QUANTTATI VE COLONY COUNT URINE SUSCEPTIB 77871 ANTONIO ALVAREZ LTY STDY 5 [facility] ANTIMICRB INC INC IAL MICRO/AGA R DILUTJ BLOOD 61233 ANTONIO ALVAREZ COUNT 5 [facility] COMPLETE INC INC AUTO&AUTO DIFRNTL WBC GONADOTRO 64434 ANTONIO ALVAREZ PIN 5 [facility] [place] [address] ANTONIO ALVAREZ TRANSVAGI 5 [facility] NAL INC INC URINLS 27242 ROSIBEL ROMAN DIP 5 JESSIE VEGAS STICK/TAB [place] [address] TYLERTYSHAWN SALEEM 1/> AREAS 5 GAR EACH 15 CHIROPRAC MIN TIC CENTE NEUROMUSC REEDUCA APPL 81538 EMMIE SALEEM MODALITY 5 GAR 1/> AREAS CHIROPRAC TRACTION TIC CENTE MECHANICA L CHIROPRAC 80862 JOSÉJAREDTYSHAWN SALEEM TIC 5 GAR MANIPLTV CHIROPRAC TX TIC CENTE EXTRASPIN AL 1/> REGION CHIROPRAC 48667 CYNCUATE HARPER TIC 5 GAR MANIPULAT CHIROPRAC DOMINICK TX TIC CENTE SPINAL 1-2 REGIONS CHIROPRAC 24038 EMMIE HARPER TIC 5 GAR MANIPULAT CHIROPRAC DOMINICK TX TIC CENTE SPINAL 1-2 REGIONS CHIROPRAC 83633 EMMIE HARPER TIC 5 GAR MANIPLTV CHIROPRAC TX TIC CENTE EXTRASPIN AL 1/> [place] [address] JOSÉJAREDTYSHAWN SALEEM 1/> AREAS 5 GAR EACH 15 CHIROPRAC [place] [address] JOSÉJAREDTYSHAWN SALEEM 1/> AREAS 5 GAR EACH 15 [place]OPRAC [place] [address] CYNCUATE SALEEM 1/> AREAS 5 GAR EACH 15 [place]IROPRAC [place] [address] EMMIE SALEEM 1/> AREAS 5 GAR EACH 15 CHIROPRAC MIN TIC CENTE NEUROMUSC REEDUCA CHIROPRAC 96810 EMMIE SALEEM TIC 5 GAR MANIPULAT CHIROPRAC DOMINICK TX TIC CENTE SPINAL 1-2 REGIONS URNLS DIP 34277 ANTONIO BELTRAN 5 [facility] STICK/[facility] LET RGNT NON-AUTO W/O MICRSCP COMPREHEN 73354 ANTONIO ALVAREZ SIVE 5 [facility] METABOLIC INC INC PANEL URNLS DIP 43736 ANTONIO ALVAREZ 5 [facility] STICK/TAB INC INC LET REAGENT AUTO MICROSCOP Y COLLECTIO 37831 ANTONIO eCvallos VENOUS 5 [facility] BLOOD INC INC VENIPUNCT URE BLOOD 64961 ANTONIO ALVAREZ COUNT 5 [facility] COMPLETE INC INC AUTO&AUTO DIFRNTL WBC BLOOD 08606 ANTONIO ALVAREZ COUNT 5 [facility] COMPLETE INC INC AUTO&[place] [address] [facility]URENT COCHRANUTCHER ABDOMEN & 5 MEDICAL ARELY PELVIS IMAGING W/O ASS CONTRAST MATERIAL COMPREHEN 11193 ANTONIO ALVAREZ SIVE 5 [facility] METABOLIC INC INC PANEL URNLS DIP 99981 ANTONIO ALVAREZ 5 [facility] STICK/TAB INC [place] [address] ANTONIOIDAZ ALVAREZ INFUSION 5 [facility] THERAPY/P INC INC ROPHYLAXI S /DX 1ST TO 1 HR COMPREHEN 77621 ANTONIO ALVAREZ SIVE 5 [facility] METABOLIC INC INC PANEL IMMUNOASS 74101 ANTONIODIAZ ALVAREZ AY NFCT 5 [facility] AGT ANTB INC INC QUAL/SEMI ANGIE 1 STEP BLOOD 26839 ANTONIODIAZ ALVAREZ COUNT 5 [facility] COMPLETE INC INC AUTO&AUTO DIFRNTL WBC UNCLASSIF J3490 ANTONIO ALVAREZ IED DRUGS 5 [facility] INC INC SMR PRIM 11543 ROSIBEL ROMAN SRC WET 5 JESSIE VE[place]AS [place] NFCT AGT HGB 53652 ROSIBEL ROMAN QUANTITAT 5 JESSIE VEGAS DOMINICK TRANSCUTA NEOUS UNCLASSIF J3490 ANTONIO ALVAREZ IED DRUGS 5 [place] [address] ANTONIO ALVAREZ INFUSION 5 [facility] THERAPY INC INC PROPHYLAX IS/DX EA HOUR BLOOD 13617 ANTONIO ANTONIO COUNT 5 [facility] HEMOGLOBI INC INC N ANESTHESI 27147 [facility] VAGINAL 5 ANESTH LUCERO OF THE PROCEDURE BLUE W/BIOPSY NOS DILATION 79528 ANTONIO ANTONIO & 5 [facility] CURETTAGE INC INC DX&/THER NONOBSTET JACQUI BLOOD 99274 ANTONIO ALVAREZ COUNT 5 [facility] HEMATOCRI INC INC T INJECTION J2405 ANTONIO ANTONIO 5 [facility] ONDANSETR INC INC ON HCL PER 1 MG COLLECTIO 21387 ANTONIO ALVAREZ N VENOUS 5 [facility] [place]LOOD [place] [address] [facility], [facility], SURG 5 [facility] PATHOLOGY GROSS&HUGH ROSCOPIC EXAM COLLECTIO 77047 ANTONIO ALVAREZ N VENOUS 5 [facility] BLOOD INC INC VENIPUNCT URE URNLS DIP 25582 ANTONIO ALVAREZ 5 [facility] STICK/TAB INC INC LET REAGENT AUTO MICROSCOP Y BLOOD 28148 ANTONIO ALVAREZ COUNT 5 [facility] COMPLETE INC INC AUTO&AUTO DIFRNTL WBC URINE 60969 ANTONIO ALVAREZ 5 [facility] TEST INC INC VISUAL COLOR CMPRSN METHS CULTURE 77663 ANTONIO ALVAREZ BACTERIAL 5 [facility] INC INC QUANTTATI VE COLONY COUNT URINE BLOOD 46885 ANTONIO ALVAREZ COUNT 5 [facility] COMPLETE INC INC AUTO&[place] [address] [facility] TRANSVAGI 5 MEDICAL HARINDER NAL IMAGING ASS COLLECTIO 29373 ANTONIO ALVAREZ N VENOUS 5 [facility] BLOOD INC INC VENIPUNCT URE COMPUTER- 49658 ANTONIO ALVAREZ AIDED 5 [facility] DETECTION INC INC SCREENING MAMMOGRAP HY SCREENING G0202 ANTONIO ALVAREZ 5 [facility] MAMMOGRAP INC INC HY MICHELE INCL CAD WHEN PERFORMD Encounters Encounter Start End Date Code Location Performer Type Date OFFICE 63102 [facility] STONE OUTPATIEN 7 7 PHYSICIAN T VISIT S GROUP 25 MINUTES OFFICE 91111 [facility] OUTPATIEN 6 6 PHYSICIAN T VISIT S GROUP 15 MINUTES OFFICE 55856 [facility] [place] OUTPATIEN 6 6 PHYSICIAN T VISIT S GROUP 15 MINUTES HOSPITAL ANTONIO - 6 6 [facility] OUTPATIEN INC T PERIODIC 53403 [facility] HARPEL PREVENTIV 6 6 PHYSICIAN SHASTA E MED EST S GROUP PATIENT 40-64YRS OFFICE 52546 [facility] [place] OUTPATIEN 6 6 PHYSICIAN EUG T VISIT S GROUP 15 MINUTES HOSPITAL ANTONIO - 6 6 [facility] OUTPATIEN INC T OFFICE 32465 [facility] [place] OUTPATIEN 6 6 PHYSICIAN T NEW 30 S GROUP MINUTES OFFICE 40029 [facility] [place] OUTPATIEN 6 6 PHYSICIAN EUG T VISIT S GROUP 15 MINUTES HOSPITAL ANTONIO - 6 6 [facility] OUTPATIEN INC T OFFICE 39390 [facility] [place] OUTPATIEN 6 6 PHYSICIAN T VISIT GROUP 25 MINUTES OFFICE 31705 [place] CANTRELL OUTPATIEN 6 6 AMA T VISIT CHIROPRAC 15 TIC CENTE MINUTES OFFICE 87052 [facility] GAGE OUTPATIEN 6 6 PHYSICIAN T VISIT GROUP 15 MINUTES EMERGENCY 53548 [place] [facility] 6 6 PHYSICIAN DEPARTMEN [facility] PLL[facility] T VISIT MODERATE SEVERITY HOSPITAL ANTONIO - 6 6 [facility] OUTPATIEN INC T OFFICE 53887 [place] CANTRELL OUTPATIEN 6 6 AMA T VISIT CHIROPRAC 15 TIC CENTE MINUTES EMERGENCY 70519 ANTONIO 6 6 [facility] DEPARTMEN INC T VISIT LOW/MODER SEVERITY OFFICE 67332 ANTONIO ALMONTE OUTPATIEN 6 6 [facility] T VISIT HOSPITAL 25 MINUTES OFFICE 59673 TEMPLE SHANIKA OUTPATIEN 6 6 HEALTH HEN T VISIT MEDICAL 15 GROUP MINUTES OFFICE 19141 [facility] YOLANDE OUTPATIEN 6 6 PHYSICIAN STONE T VISIT S GROUP PA-Zuleyma CORBIN 25 MINUTES [facility] ANTONIO - 6 6 [facility] OUTPATIEN INC T OFFICE 39571 ROSIBEL ROMAN OUTPATIEN 6 6 JESSIE BOTELLO SHASTA T VISIT 15 MINUTES OFFICE 65738 [facility] JEFFRY OUTPATIEN 6 6 PHYSICIAN HUGH T VISIT S GROUP 15 MINUTES OFFICE 34573 [facility] JEFFRY OUTPATIEN 6 6 PHYSICIAN HUGH T VISIT S GROUP 15 MINUTES OFFICE 83317 ANTONIO EASLEY OUTPATIEN 6 6 [facility] 15 MINUTES HOSPITAL ANTONIO - 5 6 [facility] ANTONIO - 5 5 [facility] OUTPATIEN INC T OFFICE 10098 ROSIBEL ROMAN OUTPATIEN 5 5 JESSIE BOTELLO SHASTA T VISIT 15 MINUTES [facility] ANTONIO - 5 5 [facility] OUTPATIEN INC T OFFICE 10906 ROSIBEL ROMAN OUTPATIEN 5 5 JESSIE BOTELLO SHASTA T VISIT 25 MINUTES OFFICE 76573 EMMIE SALEEM OUTPATIEN 5 5 GAR T VISIT CHIROPRAC 10 TIC CENTE MINUTES OFFICE 24868 ANTONIO BELTRAN OUTPATIEN [address] [facility] 15 MINUTES [facility] ANTONIO - 5 5 [facility] OUTPATIEN INC T EMERGENCY 29041 [place] JAMISON 5 5 PHYSICIAN [facility] DEPARTMEN [facility] T VISIT HIGH/URGE NT SEVERITY HOSPITAL ANTONIO - 5 5 [facility] OUTPATIEN INC T EMERGENCY 20013 [facility]TONIO 5 5 [facility] MODERATE SEVERITY EMERGENCY 34633 ANTONIO 5 5 [facility] DEPARTMEN INC T VISIT HIGH/URGE NT SEVERITY EMERGENCY 84363 ANTONIO JAVIER L 5 5 [facility] T VISIT P MODERATE SEVERITY HOSPITAL ANTONIO - 5 5 [facility] OUTPATIEN INC T OFFICE 14836 ROSIBEL ROMAN OUTPATIEN 5 5 JESSIE VEGAS T VISIT 15 MINUTES HOSPITAL ANTONIO - 5 5 [facility] OUTPATIEN INC T OFFICE 22256 ROSIBEL ROMAN OUTPATIEN 5 5 JESSIE VGEAS T VISIT 15 MINUTES HOSPITAL ANTONIO - 5 5 [facility] OUTPATIEN INC T HOSPITAL ANTONIO - 5 5 [facility] OUTPATIEN INC T OFFICE 32052 ROSIBEL ROMAN OUTPATIEN 5 5 JESSIE VEGAS T VISIT 15 MINUTES OFFICE 03488 ROSIBEL ROMAN OUTPATIEN 5 5 JESSIE VEGAS T VISIT 15 MINUTES HOSPITAL ANTONIO - 5 5 [facility] OUTPATIEN INC T Emergency KAMILLE Jamison MD (ER) 3 05:26 3 05:27 [facility]
--- OUTSIDE RECORDS SUMMARY | 2016-10-16 19:46 | External Medical Summary Rpt ---
Author Author , Organization [employer] Address Unknown Phone Unavailable Care Team Providers Care Machine Ii Cutter Name Role Phone [facility] Unavailable Un[facility], [facility] BEINEKE HARINDER, BEINEKE Unavailable Unavailable [...] Unavailable JESSIE LOPEZ MD Unavailable Unavailable [facility] Unavailable Unavailable INC, [facility] Unavailable [facility]available [facility], [facility] Unavailable Unavailable [facility]OSPITAL P, [facility], Unavailable Unavailable [facility] CANTRELL AMA, CANTRELL Unavailable Unavailable [facility], Unavailable Unavailable [...] 2016 Problems Code Diagnosis DOS Provider Status [id number] PAIN IN 07-10-2016 [place] RIGHT [facility] SHOULDER [...] SOMATIC CHIROPRACTI DYSFUNCTION C CENTE LOWER EXTREMITY [id number] ACUTE 06-29-2016 [facility] SUPPURATIVE PHYSICIANS OM W/O GROUP RUPT EAR DRUM RT EAR R109 UNSPECIFIED 06-29-2016 [facility] ABDOMINAL PHYSICIANS PAIN GROUP J40 BRONCHITIS 05-25-2016 [facility] NOT PHYSICIANS SPECIFIED GROUP ACUTE OR CHRONIC J0100 ACUTE 05-22-2016 [facility] MAXILLARY PHYSICIANS SINUSITIS GROUP UNSPECIFIED Z1231 ENCOUNTER 05-01-2016 [facility] NEOPLASM BREAST N951 MENOPAUSAL 04-25-2016 [facility] AND FEMALE PHYSICIANS CLIMACTERIC GROUP STATES [id number] 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[facility] DAY CARE PROVIDER EXAM PHYSICIANS GENERAL RTN GROUP W/O ABNORMAL FIND Z1212 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[facility] SCREENING PHYSICIANS MALIGNANT GROUP NEOPLASM RECTUM J0390 ACUTE 04-13-2016 [facility] TONSILLITIS PHYSICIANS GROUP UNSPECIFIED M542 CERVICALGIA 03-30-2016 [place] [facility] [id number] SPRAIN 03-30-2016 [place] LIGAMENTS CHIROPRACTI LUMBAR C CENTE SPINE INITIAL ENCOUNTER [id number] STRAIN 03-30-2016 [place] MUSCLE CHIROPRACTI FASCIA & C CENTE TENDON LOW BACK INITIAL [id number] PAIN IN 03-28-2016 [facility] M7989 OTHER 03-28-2016 [facility] SPECIFIED [facility]ICAL SOFT TISSUE IMAGING ASS DISORDERS 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 M654 RADIAL 03-15-2016 [facility] STYLOID PHYSICIANS TENOSYNOVIT GROUP IS DE QUERVAIN K10442 GANGLION 03-15-2016 [facility] RIGHT WRIST PHYSICIANS GROUP P00122 GANGLION 03-15-2016 [facility] LEFT WRIST PHYSICIANS GROUP J029 ACUTE 03-07-2016 [facility] PHARYNGITIS PHYSICIANS GROUP UNSPECIFIED [id number] PAIN IN 03-07-2016 [facility] V21338 GANGLION 03-07-2016 [facility] RIGHT HAND PHYSICIANS GROUP [id number] GANGLION 03-07-2016 [facility] LEFT HAND PHYSICIANS GROUP S94557 PAIN IN 03-07-2016 [facility] M9903 SEGMENTAL & 01-21-2016 [place] SOMATIC CH[facility]OP[facility] DYSFUNCTION C CENTE OF LUMBAR REGION M545 LOW BACK 01-11-2016 [place] PAIN CHIROPRACTI C CENTE I10 ESSENTIAL 01-04-2016 [facility] HYPERTENSIO INC N K1120 SIALOADENIT 01-04-2016 [facility], UNSPECIFIED PLLC K1121 ACUTE 01-04-2016 [place] [facility] IS INC J329 CHRONIC 12-27-2015 [place] SINUSITIS [facility] J0140 ACUTE 11-22-2015 [facility] S MEDICAL UNSPECIFIED GROUP H6980 OTHER SPEC 11-09-2015 [facility] DISORDERS PHYSICIANS EUSTACHIAN GROUP TUBE UNS EAR Y83035 UNSPECIFIED 11-09-2015 [facility] ASTHMA PHYSICIANS UNCOMPLICAT GROUP ED R5383 OTHER 11-09-2015 [facility] FATIGUE PHYSICIANS GROUP Z840 FAMILY 11-09-2015 [facility] HISTORY PHYSICIANS DISEASES GROUP SKIN & SUBQ TISSUE Z0100 ENCOUNTER 11-04-2015 [facility] EX[facility]YES [facility] GRE VISION W/O ABNORMAL FIND H6690 OTITIS 09-22-2015 [facility] MEDIA PHYSICIANS UNSPECIFIED GROUP UNSPECIFIED EAR J040 ACUTE 09-22-2015 [facility] LARYNGITIS PHYSICIANS GROUP [id number] OTHER ACUTE 09-12-2015 [facility] DOMINICK OM RECURRENT BILAT J0190 ACUTE 09-12-2015 [place] SINUSITIS [facility] J209 ACUTE 09-12-2015 [place] BRONCHITIS [facility] D259 LEIOMYOMA 06-03-2015 [facility] UNSPECIFIED K660 PERITONEAL 06-03-2015 [place] ADHESIONS [facility] POSTPROC INC POSTINFECTI ON N736 FEMALE 06-03-2015 [facility] PELVIC PHYSICIANS PERITONEAL GROUP ADHESIONS POSTINFECTI VE N800 ENDOMETRIOS 06-03-2015 [facility] IS OF [facility] UTERUS N831 CORPUS 06-03-2015 [facility] L[facility]ST [facility] N8320 UNSPECIFIED 06-03-2015 [facility] OVARIAN PHYSICIANS CYSTS GROUP N856 INTRAUTERIN 06-03-2015 [facility] E [facility]NECH[facility] N938 OTHER SPEC 06-03-2015 [facility] ABNORMAL PHYSICIANS UTERINE & GROUP VAGINAL BLEEDING R102 PELVIC AND 06-03-2015 [facility] PAIN INC B9689 OTH SPEC 05-24-2015 [facility] C[facility]all[facility] BACTERIAL JESSIE BOTELLO AGNT CAUSE DZ CLASSIFIED ELSW N760 ACUTE 05-24-2015 [facility] Ceballos VAGINIXENA ROMAN MD K21623 ENCOUNTER 05-24-2015 [facility] FOR OTHER [facility] PREPROCEDUR INC AL EXAMINATION N852 HYPERTROPHY 05-10-2015 [place] [facility] N9489 OTH COND 05-04-2015 [facility] ASSOC W/FE JESSIE BOTELLO GEN ORGN & MENSTRUAL CYCL 4019 UNSPECIFIED 02-03-2015 [facility] N 82232 ASTHMA, 02-03-2015 [place] UNSPECIFIED [facility] UNSPECIFIED STATUS 5990 URINARY 02-03-2015 [facility] INFECTION HOSPITAL SITE NOT SPECIFIED 02687 ABDOMINAL 01-05-2015 [facility] PAIN OTHER [facility] SPECIFIED INC SITE 81476 OTHER 11-03-2014 [place] SPECIFIED [facility]ICAL DISORDER OF IMAGING ASS KIDNEY AND URETER 16625 ABDOMINAL 11-03-2014 [facility] PAIN RIGHT [facility] UPPER INC QUADRANT V1301 PERSONAL 11-03-2014 [facility] HISTORY OF [facility] URINARY INC CALCULI 462 ACUTE 10-07-2014 [place] PHARYNGITIS [facility] P 52792 ACUTE 10-07-2014 [place] LARYNGITIS, [facility] P MENTION OF OBSTRUCTIO 06296 UNSPECIFIED 09-14-2014 [facility] Ceballos VAGINIXENA ROMAN MD [...] NO 00 2- 7- 00 01 ve IL 52 20 20 16 AI IL 00 [...] MG #3 TA 93 BL 8 ET IL 59 01 02 10 5 00 RI [...] NO 00 5- 0- 00 01 ve IL 52 20 20 16 AI IL 00 [...] MG #3 TA 93 BL 8 ET AL 00 12 01 22 25 00 [...] MG #3 93 TA 8 BL ET IL 00 12 01 20 10 00 RI Ac OM 60 -2 -2 0. 00 TE ti ET 31 2- 0- 00 01 ve RAMIRES 58 20 20 0 16 AI ZI 65 16 17 36 D NE 4 14 PH -D AR M MA SY CY RU P #3 93 8 IL 00 12 01 10 5 00 RI Ac ED 14 -2 -2 .0 00 TE ti NI 39 2- 0- 00 01 ve SO 73 20 20 16 AI NE 80 16 17 36 D 1 15 PH 20 AR MA MG CY TA #3 BL 93 ET 8 AM 00 12 01 20 10 [...] NO 00 5- 3- 00 01 ve IL 52 20 20 16 AI IL 00 16 17 26 D -H [address] AR Z MA 20 CY -2 5 #3 MG 93 8 TA B Procedures Procedure DOS Code Location Performer Comment MANUAL 68411 [place] [facility] 7 TQS 1/> [facility] REGIONS TIC CENTE EACH 15 MINUTES CHIROP[facility]AC 11092 [place] [facility] TIC 7 MANIPULAT CHIROPRAC DOMINICK TX TIC CENTE SPINAL 1-2 REGIONS INJECTION J0696 [facility] STONE 7 PHYSICIAN CEFTRIAXO S GROUP NE SODIUM PER 250 MG URNLS DIP 70371 [facility] 7 PHYSICIAN PHYSICIAN STICK/TAB S GROUP S GROUP LET RGNT NON-AUTO W/O MICRSCP THERAPEUT 93091 [facility] STONE IC 7 PHYSICIAN PROPHYLAC S GROUP TIC/DX INJECTION SUBQ/IM THERAPEUT 67135 [facility] STONE IC 6 PHYSICIAN PROPHYLAC S GROUP TIC/DX INJECTION SUBQ/IM INJECTION J0696 [facility] STONE 6 PHYSICIAN CEFTRIAXO S GROUP NE SODIUM PER 250 MG INJECTION J0696 [facility] FRYMAN 6 PHYSICIAN CEFTRIAXO S GROUP NE SODIUM PER 250 MG THERAPEUT 08898 [facility] FRYMAN IC 6 PHYSICIAN PROPHYLAC S GROUP TIC/DX INJECTION SUBQ/IM SCREENING G0202 [facility] MAMMOGRAP INC INC HY MICHELE INCL CAD WHEN PERFORMD COMPUTER- 16271 [facility] AIDED 6 [facility] DETECTION INC INC SCREENING MAMMOGRAP HY CULTURE 38930 [facility] HARPEL CHLAMYDIA 6 PHYSICIAN SHASTA ANY S GROUP SOURCE CYTP C/V 03053 BIO BIO AUTO THIN 6 REFERNCE REFERNCE LYR LABORATOR LABORATOR PREPJ SCR IES IES MNL RESCR PHYS IADNA 44401 BIO BIO TRICHOMON 6 REFERNCE REFERNCE LABORATOR LABORATOR VAGINALIS IES IES AMPLIFIED PROBE TECH IADNA 28223 BIO BIO CHLAMYDIA 6 REFERNCE REFERNCE LABORATOR LABORATOR TRACHOMAT IES IES IS AMPLIFIED PROBE TQ URINLS 01716 [facility] HARPEL DIP 6 PHYSICIAN SHASTA STICK/TAB S GROUP LET REAGNT NON-AUTO MICRSCPY IADNA 48478 [facility] NEISSERIA 6 PHYSICIAN PHYSICIAN S GROUP S GROUP GONORRHOE AE DIRECT PROBE TQ IADNA 60110 BIO BIO NEISSERIA 6 REFERNCE REFERNCE LABORATOR LABORATOR GONORRHOE IES IES AE AMPLIFIED PROBE TQ IADNA NOS 06194 BIO BIO 6 REFERNCE REFERNCE AMPLIFIED LABORATOR LABORATOR PROBE TQ IES IES EACH ORGANISM INJECTION J0696 [facility] FRYMAN 6 PHYSICIAN EUG CEFTRIAXO S GROUP NE SODIUM PER 250 MG THERAPEUT 01355 [facility] FRYMAN IC 6 PHYSICIAN EUG PROPHYLAC S GROUP TIC/DX INJECTION SUBQ/IM MANUAL 28801 [place] CANTRELL THERAPY 6 AMA TQS 1/> CHIROPRAC REGIONS TIC CENTE EACH 15 MINUTES CHIROPRAC 39959 [place] CANTRELL TIC 6 AMA MANIPULAT CHIROPRAC DOMINICK TX TIC CENTE SPINAL 3-4 REGIONS CHIROPRAC 27209 [place] CANTRELL TIC 6 AMA MANIPLTV CHIROPRAC TX TIC CENTE EXTRASPIN AL 1/> REGION MRI UPPER 30837 [place] [facility] 6 MEDICAL EXTREMITY IMAGING OTH THAN ASS JT W/O CONTR MATRL APPL 94724 [place] CANTRELL MODALITY 6 AMA 1/> AREAS CHIROPRAC ELEC TIC CENTE STIMJ UNATTENDE D CHIROPRAC 83826 [place] CANTRELL TIC 6 AMA MANIPULAT CHIROPRAC DOMINICK TX TIC CENTE SPINAL 3-4 REGIONS MANUAL 52509 [place] CANTRELL THERAPY 6 AMA TQS 1/> CHIROPRAC REGIONS TIC CENTE EACH 15 MINUTES APPL 50852 [place] CANTRELL MODALITY 6 AMA 1/> AREAS CHIROPRAC TIC CENTE ULTRASOUN D EA 15 MIN APPL 39028 [place] CANTRELL MODALITY 6 AMA 1/> AREAS CHIROPRAC TIC CENTE ULTRASOUN D EA 15 MIN MANUAL 09361 [place] CANTRELL THERAPY 6 AMA TQS 1/> CHIROPRAC REGIONS TIC CENTE EACH 15 MINUTES CHIROPRAC 83774 [place] CANTRELL TIC 6 AMA MANIPULAT CHIROPRAC DOMINICK TX TIC CENTE SPINAL 3-4 REGIONS RADEX 89548 [place] MAZARIEG[facility] ALL WRIST 2 6 MEDICAL VIEWS IMAGING ASS THERAPEUT 21550 [facility] IC 6 PHYSICIAN PHYSICIAN PROPHYLAC S GROUP S GROUP TIC/DX INJECTION SUBQ/IM RADEX 68260 [place] MAZARIE[facility] ALL HAND 2 6 MEDICAL VIEWS IMAGING ASS APPL 78705 [place] CANTRELL MODALITY 6 AMA 1/> AREAS CHIROPRAC ELEC TIC CENTE STIMJ UNATTENDE D APPL 68334 [place] CANTRELL MODALITY 6 AMA 1/> AREAS CHIROPRAC ELEC TIC CENTE STIMJ UNATTENDE D CHIROPRAC 17837 [place] CANTRELL TIC 6 AMA MANIPULAT CHIROPRAC DOMINICK TX TIC CENTE SPINAL 3-4 REGIONS MANUAL 99924 [place] CANTRELL THERAPY 6 AMA TQS 1/> CHIROPRAC REGIONS TIC CENTE EACH 15 MINUTES APPL 56674 [place] CANTRELL MODALITY 6 AMA 1/> AREAS CHIROPRAC TIC CENTE ULTRASOUN D EA 15 MIN APPL 89497 [place] CANTRELL MODALITY 6 AMA 1/> AREAS CHIROPRAC TIC CENTE ULTRASOUN D EA 15 MIN MANUAL 09540 [place] CANTRELL THERAPY 6 AMA TQS 1/> CHIROPRAC REGIONS TIC CENTE EACH 15 MINUTES CHIROPRAC 34168 [place] CANTRELL TIC 6 AMA MANIPULAT CHIROPRAC DOMINICK TX TIC CENTE SPINAL 3-4 REGIONS APPL 85467 [place] CANTRELL MODALITY 6 AMA 1/> AREAS CHIROPRAC ELEC TIC CENTE STIMJ UNATTENDE D APPL 74917 [place] CANTRELL MODALITY 6 AMA 1/> AREAS CHIROPRAC ELEC TIC CENTE STIMJ UNATTENDE D CHIROPRAC 09034 [place] CANTRELL TIC 6 AMA MANIPULAT CHIROPRAC DOMINICK TX TIC CENTE SPINAL 3-4 REGIONS MANUAL 62338 [place] CANTRELL THERAPY 6 AMA TQS 1/> CHIROPRAC REGIONS TIC CENTE EACH 15 MINUTES APPL 37030 [place] CANTRELL MODALITY 6 AMA 1/> AREAS CHIROPRAC TIC CENTE ULTRASOUN D EA 15 MIN APPL 22972 [place] CANTRELL MODALITY 6 AMA 1/> AREAS CHIROPRAC TIC CENTE ULTRASOUN D EA 15 MIN MANUAL 20008 [place] CANTRELL THERAPY 6 AMA TQS 1/> CHIROPRAC REGIONS TIC CENTE EACH 15 MINUTES CHIROPRAC 48073 [place] CANTRELL TIC 6 AMA MANIPULAT CHIROPRAC DOMINICK TX TIC CENTE SPINAL 3-4 REGIONS APPL 96362 [place] CANTRELL MODALITY 6 AMA 1/> AREAS CHIROPRAC ELEC TIC CENTE STIMJ UNATTENDE D APPL 35690 [place] CANTRELL MODALITY 6 AMA 1/> AREAS CHIROPRAC ELEC TIC CENTE STIMJ UNATTENDE D CHIROPRAC 99370 [place] ACNTRELL TIC 6 AMA MANIPLTV CHIROPRAC TX TIC CENTE EXTRASPIN AL 1/> REGION CHIROPRAC 52122 [place] CANTRELL TIC 6 AMA MANIPULAT CHIROPRAC DOMINICK TX TIC CENTE SPINAL 3-4 REGIONS MANUAL 09343 [place] CANTRELL THERAPY 6 AMA TQS 1/> CHIROPRAC REGIONS TIC CENTE EACH 15 MINUTES APPL 93511 [place] CANTRELL MODALITY 6 AMA 1/> AREAS CHIROPRAC TIC CENTE ULTRASOUN D EA 15 MIN THERAPEUT 70019 [place] CANTRELL IC PX 1/> 6 AMA AREAS CHIROPRAC EACH 15 TIC CENTE MIN EXERCISES APPL 41145 [place] CANTRELL MODALITY 6 AMA 1/> AREAS CHIROPRAC TIC CENTE ULTRASOUN D EA 15 MIN MANUAL 06513 [place] CANTRELL THERAPY 6 AMA TQS 1/> CHIROPRAC REGIONS TIC CENTE EACH 15 MINUTES CHIROPRAC 60149 [place] CANTRELL TIC 6 AMA MANIPULAT CHIROPRAC DOMINICK TX TIC CENTE SPINAL 3-4 REGIONS CHIROPRAC 26430 [place] CANTRELL TIC 6 AMA MANIPLTV CHIROPRAC TX TIC CENTE EXTRASPIN AL 1/> REGION APPL 92151 [place] CANTRLEL MODALITY 6 AMA 1/> AREAS CHIROPRAC ELEC TIC CENTE STIMJ UNATTENDE D APPL 49600 [place] CANTRELL MODALITY 6 AMA 1/> AREAS CHIROPRAC TRACTION TIC CENTE MECHANICA L APPL 71120 [place] CANTRELL MODALITY 6 AMA 1/> AREAS CHIROPRAC TRACTION TIC CENTE MECHANICA L APPL 51005 [place] CANTRELL MODALITY 6 AMA 1/> AREAS CHIROPRAC ELEC TIC CENTE STIMJ UNATTENDE D CHIROPRAC 31020 [place] CANTRELL TIC 6 AMA MANIPLTV CHIROPRAC TX TIC CENTE EXTRASPIN AL 1/> REGION CHIROPRAC 32402 [place] CANTRELL TIC 6 AMA MANIPULAT CHIROPRAC DOMINICK TX TIC CENTE SPINAL 3-4 REGIONS MANUAL 97805 [place] CANTRELL THERAPY 6 AMA TQS 1/> CHIROPRAC REGIONS TIC CENTE EACH 15 MINUTES APPL 78834 [place] CANTRELL MODALITY 6 AMA 1/> AREAS CHIROPRAC TIC CENTE ULTRASOUN D EA 15 MIN APPL 18870 [place] CANTRELL MODALITY 6 AMA 1/> AREAS CHIROPRAC TIC CENTE ULTRASOUN D EA 15 MIN MANUAL 53707 [place] CANTRELL THERAPY 6 AMA TQS 1/> CHIROPRAC REGIONS TIC CENTE EACH 15 MINUTES CHIROPRAC 62084 [place] CANTRELL TIC 6 AMA MANIPULAT CHIROPRAC DOMINICK TX TIC CENTE SPINAL 3-4 REGIONS CHIROPRAC 04751 [place] CANTRELL TIC 6 AMA MANIPLTV CHIROPRAC TX TIC CENTE EXTRASPIN AL 1/> REGION APPL 68867 [place] CANTRELL MODALITY 6 AMA 1/> AREAS CHIROPRAC ELEC TIC CENTE STIMJ UNATTENDE D APPL 75643 [place] CANTRELL MODALITY 6 AMA 1/> AREAS CHIROPRAC TRACTION TIC CENTE MECHANICA L APPL 42572 [place] CANTRELL MODALITY 6 AMA 1/> AREAS CHIROPRAC ELEC TIC CENTE STIMJ UNATTENDE D APPL 82414 [place] CANTRELL MODALITY 6 AMA 1/> AREAS CHIROPRAC TRACTION TIC CENTE MECHANICA L CHIROPRAC 99013 [place] CANTRELL TIC 6 AMA MANIPLTV CHIROPRAC TX TIC CENTE EXTRASPIN AL 1/> REGION CHIROPRAC 42798 [place] CANTRELL TIC 6 AMA MANIPULAT CHIROPRAC DOMINICK TX TIC CENTE SPINAL 3-4 REGIONS MANUAL 54935 [place] CANTRELL THERAPY 6 AMA TQS 1/> CHIROPRAC REGIONS TIC CENTE EACH 15 MINUTES APPL 84423 [place] CANTRELL MODALITY 6 AMA 1/> AREAS CHIROPRAC TIC CENTE ULTRASOUN D EA 15 MIN APPL 75205 [place] CANTRELL MODALITY 6 AMA 1/> AREAS CHIROPRAC TIC CENTE ULTRASOUN D EA 15 MIN MANUAL 55799 [place] CANTRELL THERAPY 6 AMA TQS 1/> CHIROPRAC REGIONS TIC CENTE EACH 15 MINUTES CHIROPRAC 09060 [place] CANTRELL TIC 6 AMA MANIPULAT CHIROPRAC DOMINICK TX TIC CENTE SPINAL 3-4 REGIONS RADEX 32723 [place] CANT[facility]LL SPINE 6 AMA LUMBOSACR CHIROPRAC AL 2/3 TIC CENTE VIEWS CHIROPRAC 16140 [place] CANT[facility]LL TIC 6 AMA MANIPLTV CHIROPRAC TX TIC CENTE EXTRASPIN AL 1/> REGION APPL 19548 [place] CANTRELL MODALITY 6 AMA 1/> AREAS CHIROPRAC TRACTION TIC CENTE MECHANICA L APPL 09410 [place] CANTRELL MODALITY 6 AMA 1/> AREAS CHIROPRAC ELEC TIC CENTE STIMJ UNATTENDE D APPL 14932 [place] CANTRELL MODALITY 6 AMA 1/> AREAS CHIROPRAC ELEC TIC CENTE STIMJ UNATTENDE D APPL 54120 [place] CANTRLEL MODALITY 6 AMA 1/> AREAS CHIROPRAC TRACTION TIC CENTE MECHANICA L CHIROPRAC 02231 [place] CANTRELL TIC 6 AMA MANIPLTV CHIROPRAC TX TIC CENTE EXTRASPIN AL 1/> REGION CHIROPRAC 48864 [place] CANT[place]LL TIC 6 AMA MANIPULAT CHIROPRAC DOMINICK TX TIC CENTE SPINAL 3-4 REGIONS MANUAL 93406 [place] CANTRELL THERAPY 6 AMA TQS 1/> CHIROPRAC REGIONS TIC CENTE EACH 15 MINUTES APPL 36034 [place] CANTRELL MODALITY 6 AMA 1/> AREAS CHIROPRAC TIC CENTE ULTRASOUN D EA 15 MIN APPL 59363 [place] CANTRELL MODALITY 6 AMA 1/> AREAS CHIROPRAC TIC CENTE ULTRASOUN D EA 15 MIN CHIROPRAC 38241 [place] CANT[place]LL TIC 6 AMA MANIPULAT CHIROPRAC DOMINICK TX TIC CENTE SPINAL 3-4 REGIONS MANUAL 71977 [place] CANT[facility]LL THERAPY 6 AMA TQS 1/> CHIROPRAC REGIONS TIC CENTE EACH 15 MINUTES CHIROPRAC 11041 [place] CANT[facility]LL TIC 6 AMA MANIPLTV CHIROPRAC TX TIC CENTE EXTRASPIN AL /> REGION APPL 46967 [place] CANT[facility]LL MODALITY 6 AMA 1/> AREAS CHIROPRAC ELEC TIC CENTE STIMJ UNATTENDE D APPL 63875 [place] CANTRELL MODALITY 6 AMA 1/> AREAS CHIROPRAC TRACTION TIC CENTE MECHANICA L APPL 90677 [place] CANTRELL MODALITY 6 AMA 1/> AREAS CHIROPRAC ELEC TIC CENTE STIMJ UNATTENDE D APPL 97924 [place] CANTRELL MODALITY 6 AMA 1/> AREAS CHIROPRAC TRACTION TIC CENTE MECHANICA L CHIROPRAC 58909 [place] CANTRELL TIC 6 AMA MANIPLTV CHIROPRAC TX TIC CENTE EXTRASPIN AL 1/> REGION MANUAL 35684 [place] CANTRELL THERAPY 6 AMA TQS 1/> CHIROPRAC REGIONS TIC CENTE EACH 15 MINUTES CHIROPRAC 37651 [place] CANTRELL TIC 6 AMA MANIPULAT CHIROPRAC DOMINICK TX TIC CENTE SPINAL 3-4 REGIONS CHIROPRAC 80385 [place] CANTRELL TIC 6 AMA MANIPULAT CHIROPRAC DOMINICK TX TIC CENTE SPINAL 3-4 REGIONS MANUAL 67592 [place] CANTRELL THERAPY 6 AMA TQS 1/> CHIROPRAC REGIONS TIC CENTE EACH 15 MINUTES CHIROPRAC 25892 [place] CANTRELL TIC 6 AMA MANIPLTV CHIROPRAC TX TIC CENTE EXTRASPIN AL 1/> REGION APPL 72475 [place] CANTRELL MODALITY 6 AMA 1/> AREAS CHIROPRAC TRACTION TIC CENTE MECHANICA L APPL 02080 [place] MODALITY 6 1/> AREAS CHIROPRAC CHIROPRAC TRACTION TIC CENTE TIC CENTE MECHANICA L APPL 60936 [place] CANTRELL MODALITY 6 AMA 1/> AREAS CHIROPRAC ELEC TIC CENTE STIMJ UNATTENDE D CHIROPRAC 44995 [place] CANTRELL TIC 6 AMA MANIPLTV CHIROPRAC TX TIC CENTE EXTRASPIN AL 1/> REGION MANUAL 53583 [place] CANTRELL THERAPY 6 AMA TQS 1/> CHIROPRAC REGIONS TIC CENTE EACH 15 MINUTES CHIROPRAC 50393 [place] CANTRELL TIC 6 AMA MANIPULAT CHIROPRAC DOMINICK TX TIC CENTE SPINAL 3-4 REGIONS APPL 35980 [place] CANTRELL MODALITY 6 AMA 1/> AREAS CHIROPRAC TIC CENTE ULTRASOUN D EA 15 MIN THERAPEUT 70995 [place] CANTRELL IC PX 1/> 6 AMA AREAS CHIROPRAC EACH 15 TIC CENTE MIN EXERCISES APPL 22631 [place] CANTRELL MODALITY 6 AMA 1/> AREAS CHIROPRAC TIC CENTE ULTRASOUN D EA 15 MIN CHIROPRAC 28032 [place] CANT[place]LL TIC 6 AMA MANIPULAT CHIROPRAC DOMINICK TX TIC CENTE SPINAL 3-4 REGIONS MANUAL 41108 [place] CANTRELL THERAPY 6 AMA TQS 1/> CHIROPRAC REGIONS TIC CENTE EACH 15 MINUTES CHIROPRAC 92051 [place] CANTRELL TIC 6 AMA MANIPLTV CHIROPRAC TX TIC CENTE EXTRASPIN AL 1/> REGION APPL 36933 [place] MODALITY 6 1/> AREAS CHIROPRAC CHIROPRAC ELEC TIC CENTE TIC CENTE STIMJ UNATTENDE D APPL 27007 [place]ANT[place] MODALITY 6 AMA 1/> AREAS CHIROPRAC TRACTION TIC CENTE MECHANICA L APPL 32354 [place] MODALITY 6 1/> AREAS [facility]IROP[facility] CHIROPRAC TRACTION TIC CENTE TIC CENTE MECHANICA L APPL 72281 [place] CANT[place] MODALITY 6 AMA 1/> AREAS CHIROPRAC ELEC TIC CENTE STIMJ UNATTENDE D CHIROPRAC 17101 [place] TIC 6 AMA MANIPLTV CHIROPRAC TX TIC CENTE EXTRASPIN AL 1/> REGION CHIROPRAC 36906 [place] TIC 6 AMA MANIPULAT CHIROPRAC DOMINICK TX TIC CENTE SPINAL 3-4 REGIONS MANUAL 24951 [place]ANT[place] THERAPY 6 AMA TQS 1/> CHIROPRAC REGIONS TIC CENTE EACH 15 MINUTES APPL 20268 [place] MODALITY 6 AMA 1/> AREAS CHIROPRAC TIC CENTE ULTRASOUN D EA 15 MIN APPL 02539 [place] MODALITY 6 1/> AREAS CHIROPRAC CHIROPRAC TIC CENTE TIC CENTE ULTRASOUN D EA 15 MIN MANUAL 88287 [place] CANT[place] THERAPY 6 AMA TQS 1/> CHIROPRAC REGIONS TIC CENTE EACH 15 MINUTES CHIROPRAC 56532 [place] TIC 6 AMA MANIPULAT CHIROPRAC DOMINICK TX TIC CENTE SPINAL 3-4 REGIONS CHIROPRAC 53475 [place] PRA TIC 6 MANIPLTV CHIROPRAC TX TIC CENTE EXTRASPIN AL 1/> REGION APPL 86261 [place] MODALITY 6 AMA 1/> AREAS CHIROPRAC ELEC TIC CENTE STIMJ UNATTENDE D APPL 90600 [place] MODALITY 6 AMA 1/> AREAS CHIROPRAC TRACTION TIC CENTE MECHANICA L APPL 40700 [place] MODALITY 6 AMA 1/> AREAS CHIROPRAC ELEC TIC CENTE STIMJ UNATTENDE D APPL 32058 [place] MODALITY 6 1/> AREAS CHIROPRAC CHIROPRAC TRACTION TIC CENTE TIC CENTE MECHANICA L CHIROPRAC 24114 [place] TIC 6 AMA MANIPLTV CHIROPRAC TX TIC CENTE EXTRASPIN AL 1/> REGION CHIROPRAC 24902 [place] TIC 6 AMA MANIPULAT CHIROPRAC DOMINICK TX TIC CENTE SPINAL 3-4 REGIONS MANUAL 42111 [place] C[place] THERAPY 6 AMA TQS 1/> CHIROPRAC REGIONS TIC CENTE EACH 15 MINUTES MANUAL 90688 [place] THERAPY 6 AMA TQS 1/> CHIROPRAC REGIONS TIC CENTE EACH 15 MINUTES CHIROPRAC 67456 [place] TIC 6 AMA MANIPULAT CHIROPRAC DOMINICK TX TIC CENTE SPINAL 3-4 REGIONS CHIROPRAC 87900 [place]ANT[place] TIC 6 AMA MANIPLTV CHIROPRAC TX TIC CENTE EXTRASPIN AL 1/> REGION APPL 95061 [place] MODALITY 6 1/> AREAS CHIROPRAC CHIROPRAC TRACTION TIC CENTE TIC CENTE MECHANICA L APPL 67299 [place] MODALITY 6 AMA 1/> AREAS CHIROPRAC ELEC TIC CENTE STIMJ UNATTENDE D APPL 57651 [place] MODALITY 6 AMA 1/> AREAS CHIROPRAC ELEC TIC CENTE STIMJ UNATTENDE D APPL 52848 [place] MODALITY 6 AMA 1/> AREAS CHIROPRAC TRACTION TIC CENTE MECHANICA L CHIROPRAC 75227 [place] TIC 6 AMA MANIPLTV CHIROPRAC TX TIC CENTE EXTRASPIN AL 1/> REGION CHIROPRAC 29634 [place] TIC 6 AMA MANIPULAT CHIROPRAC DOMINICK TX TIC CENTE SPINAL 3-4 REGIONS MANUAL 49081 [place] THERAPY 6 AMA TQS 1/> CHIROPRAC REGIONS TIC CENTE EACH 15 MINUTES MANUAL 38079 [place] C[place] THERAPY 6 AMA TQS 1/> CHIROPRAC REGIONS TIC CENTE EACH 15 MINUTES CHIROPRAC 21588 [place] TIC 6 AMA MANIPULAT CHIROPRAC DOMINICK TX TIC CENT[place] SPINAL 3-[place] [address] [place] CANT[place] 1/> AREAS 6 AMA EACH 15 CHIROPRAC MIN TIC CENTE NEUROMUSC REEDUCA CHIROPRAC 60639 [place] TIC 6 AMA MANIPLTV CHIROPRAC TX TIC CENTE EXTRASPIN AL 1/> REGION APPL 99687 [place] MODALITY 6 AMA 1/> AREAS CHIROPRAC TRACTION TIC CENTE MECHANICA L APPL 24026 [place] MODALITY 6 AMA 1/> AREAS CHIROPRAC ELEC TIC CENTE STIMJ UNATTENDE D APPL 90015 [place] MODALITY 6 AMA 1/> AREAS CHIROPRAC ELEC TIC CENTE STIMJ UNATTENDE D APPL 46575 [place] MODALITY 6 AMA 1/> AREAS CHIROPRAC TRACTION TIC CENTE MECHANICA L CHIROPRAC 60773 EMMIE CANTRELL TIC 6 AMA MANIPLTV CHIROPRAC TX TIC CENTE EXTRASPIN AL 1/> [place] [address] EMMIE HUFFELL 1/> AREAS 6 AMA EACH 15 CHIROPRAC MIN TIC CENTE NEUROMUSC REEDUCA CHIROPRAC 67238 EMMIE CANTRELL TIC 6 AMA MANIPULAT CHIROPRAC DOMINICK TX TIC CENTE SPINAL 3-4 REGIONS MANUAL 47866 EMMIE CANTRELL THERAPY 6 AMA TQS 1/> CHIROPRAC REGIONS TIC CENTE EACH 15 MINUTES IAADIADOO 29710 [facility] A BLOOD 73843 ANTONIO ALVAREZ COUNT 6 [facility] COMPLETE INC INC AUTO&AUTO DIFRNTL WBC SEDIMENTA [id number] ANTONIO ALVAREZ TIDIAZ RATE 6 [facility] RBC INC INC NON-AUTOM ATED 25 [id number] ANTONIO ALVAREZ HYDROXY 6 [facility] INCLUDES INC INC FRACTIONS IF PERFORMED CREATINE 90246 ANTONIO ALVAREZ KINASE 6 [facility] [place] [address] ANTONIO ALVAREZ THYROXINE 6 [facility] TOTAL INC INC ANTINUCLE 30580 ANTONIO ALVAREZ AR 6 [facility] ANTIBODIE INC INC S TYSHAWN COLLECTIO 76079 [facility] LANIER N VENOUS 6 PHYSICIAN STONE BLOOD S GROUP PA-[place] [address] ANTONIO ALVAREZ THYROID 6 [facility] STIMULATI INC INC NG HORMONE TSH C-REACTIV 66296 ANTONIO ALVAREZ E PROTEIN 6 [facility] INC INC DNA 57320 ANTONIO ALVAREZ ANTIBODY 6 [facility] [place]/DO INC INC UBLE STRANDED COMPREHEN 27695 ANTONIO ALVAREZ SIVE 6 [facility] METABOLIC INC INC PANEL OPHTH 90902 [facility] 6 GRE GRE XM&EVAL COMPRE NEW PT 1/> VST THERAPEUT 90394 [facility] JEFFRY IC 6 PHYSICIAN HUGH PROPHYLAC S GROUP TIC/DX INJECTION SUBQ/IM INJECTION J0696 [facility] JEFFRY 6 PHYSICIAN HUGH CEFTRIAXO S GROUP NE SODIUM PER 250 MG INJECTION J1040 [facility] JEFFRY 6 PHYSICIAN HUGH METHYLPRE S GROUP DNISOLONE ACETATE 80 MG INJECTION J1040 [facility] JEFFRY 6 PHYSICIAN HUGH METHYLPRE S GROUP DNISOLONE ACETATE 80 MG THERAPEUT 87120 [facility] JEFFRY IC 6 PHYSICIAN HUGH PROPHYLAC S GROUP TIC/DX INJECTION SUBQ/IM INJECTION J0696 [facility] JEFFRY 6 PHYSICIAN HUGH CEFTRIAXO S GROUP NE SODIUM PER 250 MG INJECTION J1100 [facility] SODIUM PHOSPHATE 1 MG THERAPEUT 88979 [facility] IC 6 [facility] TIC/DX INJECTION SUBQ/IM INJECTION J0561 [address] [place] E [id number] [place] [address] [facility], PICKLESIM SURG 5 [facility] GROSS&HUGH ROSCOPIC EXAM TOTAL 06284 [facility] SCHULSTAD ABDOMINAL 5 PHYSICIAN CAM S GROUP HYSTERECT W/WO RMVL TUBE OVARY ANESTHESI 52349 [facility] SP[facility]OW JADEN A 5 ANESTH INTRAPERI OF THE TONEAL BLUE LOWER ABD W/LAPS NOS COLLECTIO 34503 ANTONIO Cevallos VENOUS 5 [facility] BLOOD INC INC VENIPUNCT URE SMR PRIM 52695 ROSIBEL ROMAN SRC WET 5 JESSIE BOTELLO [facility] NFCT AGT CULTURE 62782 ANTONIO ALVAREZ BACTERIAL 5 [facility] INC INC QUANTTATI VE COLONY COUNT URINE URNLS DIP 89716 AN[facility] ALVAREZ 5 [facility] STICK/TAB INC INC LET REAGENT AUTO MICROSCOP Y BLOOD 05277 ANTONIO ALVAREZ COUNT 5 [facility] COMPLETE INC INC AUTO&AUTO DIFRNTL WBC GONADOTRO 72513 ANTONIO ALVAREZ PIN 5 [facility] CHORIONIC INC INC QUALITATI VE SUSCEPTIB 18831 ANTONIO ALVAREZ LTY STDY 5 [facility] ANTIMICRB INC INC IAL MICRO/AGA R DILUTJ 04945 ANTONIO UGARTEON TRANSVAGI 5 [facility] NAL INC INC URINLS 12292 ROSIBEL ROMAN DIP 5 JESSIE BOTELLO SHASTA STICK/TAB [place] [address] EMMIE HARPER 1/> AREAS 5 GAR EACH 15 CHIROPRAC MIN TIC CENTE NEUROMUSC REEDUCA APPL 67191 CYNCUATE HARPER MODALITY 5 GAR 1/> AREAS CHIROPRAC TRACTION TIC CENTE MECHANICA L CHIROPRAC 11226 CYNCUATE HARPER TIC 5 GAR MANIPULAT CHIROPRAC DOMINICK TX TIC CENTE SPINAL 1-2 REGIONS CHIROPRAC 65827 CYNCUATE HARPER TIC 5 GAR MANIPLTV CHIROPRAC TX TIC CENTE EXTRASPIN AL 1/> REGION CHIROPRAC 76715 CYNCUATE HARPER TIC 5 GAR MANIPLTV CHIROPRAC TX TIC CENTE EXTRASPIN AL 1/> REGION CHIROPRAC 46713 CYNCUATE HARPER TIC 5 GAR MANIPULAT CHIROPRAC DOMINICK TX TIC CENTE SPINAL 1-[address] [place] [address] CYNCUATE HARPER 1/> AREAS 5 GAR EACH 15 CHIROPRAC MIN [place] [address] CYNCUATE HARPER 1/> AREAS 5 GAR EACH 15 [place]OPR[place] [address] CYNJAREDANA HARPER 1/> AREAS 5 GAR EACH 15 [place]OPR[place] [address] CYNJAREDANA HARPER 1/> AREAS 5 GAR EACH 15 CHIROPRAC MIN TIC CENTE NEUROMUSC REEDUCA CHIROPRAC 68415 CYNCUATE HARPER TIC 5 GAR MANIPULAT CHIROPRAC DOMINICK TX TIC CENTE SPINAL 1-2 REGIONS URNLS DIP 64769 ANTONIO FRYMAN 5 [facility] STICK/TAB HOSPITAL LET RGNT NON-AUTO W/O MICRSCP COMPREHEN 15354 ANTONIO UGARTEON SIVE 5 [facility] METABOLIC INC INC PANEL COLLECTIO 93768 ANTONIO ALVAREZ N VENOUS 5 [facility] BLOOD INC INC VENIPUNCT URE URNLS DIP 12624 ANTONIO ALVAREZ 5 [facility] STICK/TAB INC INC LET REAGENT AUTO MICROSCOP Y BLOOD 00063 ANTONIO ALVAREZ COUNT 5 [facility] COMPLETE INC INC AUTO&AUTO DIFRNTL WBC BLOOD 56113 ANTONIO ALVAREZ COUNT 5 [facility] COMPLETE INC INC AUTO&AUTO DIFRNTL WBC URNLS DIP 20780 ANTONIO ALVAREZ 5 [facility] STICK/TAB INC [place] [address] [facility] COCHRANJACOB ABDOMEN & 5 MEDICAL ARELY PELVIS IMAGING W/O ASS CONTRAST MATERIAL COMPREHEN 04613 ANTONIO ALVAREZ SIVE 5 [facility] METABOLIC INC INC PANEL COMPREHEN 35755 ANTONIO ALVAREZ SIVE 5 [facility] [place] [address] ANTONIO ALVAREZ INFUSION 5 [facility] THERAPY/P INC INC ROPHYLAXI S /DX 1ST TO 1 HR IMMUNOASS 25528 ANTONIO ALVAREZ AY NFCT 5 [facility] AGT ANTB INC INC QUAL/SEMI ANGIE 1 STEP BLOOD 73967 ANTONIO ALVAREZ COUNT 5 [facility] COMPLETE INC INC AUTO&AUTO DIFRNTL WBC UNCLASSIF J3490 ANTONIO ALVAREZ IED DRUGS 5 [facility] INC INC SMR PRIM 79712 ROSIBEL ROMAN SRC WET 5 JESSIE VEGAS [facility] NFCT AGT HGB 27818 ROSIBEL ROMAN QUANTITAT 5 J[place] [address] ANTONIO ALVAREZ INFUSION 5 [facility] THERAPY INC INC PROPHYLAX IS/DX EA HOUR UNCLASSIF J3490 ANTONIO ALVAREZ IED DRUGS 5 [facility] INC INC BLOOD 84326 ANTONIO ALVAREZ COUNT 5 [facility] HEMOGLOBI INC INC N INJECTION J2405 ANTONIODIAZ ALVAREZ 5 [facility] ONDANSETR INC INC ON HCL PER 1 MG BLOOD 19424 ANTONIO ALVAREZ COUNT 5 [facility] [place] [address] P&[facility] LABS, P&C LABS, SURG 5 [facility] PATH[facility]Y GROSS&HUGH ROSCOPIC EXAM COLLECTIO 83293 ANTONIO ALVAREZ N VENOUS 5 [facility] BLOOD INC INC VENIPUNCT URE DILATION 68218 ANTONIO ALVAREZ & 5 [facility] CURETTAGE INC INC DX&/THER NONOBSTET JACQUI ANESTHESI 78203 [facility] VAGINAL 5 ANESTH LUCERO OF THE PROCEDURE BLUE W/BIOPSY NOS COLLECTIO 73142 ANTONIO ALVAREZ N VENOUS 5 [facility] BLOOD INC INC VENIPUNCT URE BLOOD 94418 ANTONIO ALVAREZ COUNT 5 [facility] COMPLETE INC INC AUTO&AUTO DIFRNTL WBC URNLS DIP 02745 ANTONIO ALVAREZ 5 [facility] STICK/TAB INC INC LET REAGENT AUTO MICROSCOP Y CULTURE 05037 ANTONIO ALVAREZ BACTERIAL 5 [facility] INC INC QUANTTATI VE COLONY COUNT URINE URINE 00029 ANTONIO ALVAREZ 5 [facility] TEST INC INC VISUAL COLOR CMPRSN METHS 79111 [facility] TRANSVAGI 5 MEDICAL HARINDER NAL IMAGING ASS BLOOD 69458 ANTONIO ALVAREZ COUNT 5 [facility] COMPLETE INC INC AUTO&AUTO DIFRNTL WBC COLLECTIO 70185 ANTONIO ALVAREZ N VENOUS 5 [facility] BLOOD INC INC VENIPUNCT URE SCREENING G0202 ANTONIO ALVAREZ 5 [facility] MAMMOGRAP INC INC HY MICHELE INCL CAD WHEN PERFORMD COMPUTER- 31573 ANTONIO ALVAREZ AIDED 5 [facility] DETECTION INC INC SCREENING MAMMOGRAP HY Encounters Encounter Start End Date Code Location Performer Type Date OFFICE 03159 [facility] STONE OUTPATIEN 7 7 PHYSICIAN T VISIT S GROUP 25 MINUTES OFFICE 78669 H OUTPATIEN 6 6 PHYSICIAN T VISIT S GROUP 15 MINUTES OFFICE 43305 [facility] FRYMAN OUTPATIEN 6 6 PHYSICIAN T VISIT S GROUP 15 MINUTES [facility]OSPITAL ANTONIO - 6 6 [facility] OUTPATIEN INC T PERIODIC 91717 [facility] HARPEL PREVENTIV 6 6 PHYSICIAN SHASTA E MED EST S GROUP PATIENT 40-64YRS OFFICE 57705 [facility] FRYMAN OUTPATIEN 6 6 PHYSICIAN EUG T VISIT S GROUP 15 MINUTES HOSPITAL ANTONIO - 6 6 [facility] OUTPATIEN INC T OFFICE 12911 [facility] [place] OUTPATIEN 6 6 PHYSICIAN T NEW 30 S GROUP MINUTES HOSPITAL ANTONIO - 6 6 [facility] OUTPATIEN INC T OFFICE 75959 [facility] FRYMAN OUTPATIEN 6 6 PHYSICIAN EUG T VISIT S GROUP 15 MINUTES OFFICE 62111 [facility] [place] OUTPATIEN 6 6 PHYSICIAN T VISIT GROUP 25 MINUTES OFFICE 37831 JOSÉTHITYSHAWN CANTRELL OUTPATIEN 6 6 AMA T VISIT CHIROPRAC 15 TIC CENTE MINUTES OFFICE 87526 [facility] GAGE OUTPATIEN 6 6 PHYSICIAN T VISIT GROUP 15 MINUTES EMERGENCY 30983 ANTONIO 6 6 [facility] DEPARTMEN INC T VISIT LOW/MODER SEVERITY HOSPITAL ANTONIO - 6 6 [facility] OUTPATIEN INC T EMERGENCY 88109 [facility] 6 6 PHYSICIAN DEPARTMEN S, PLL[facility] T VISIT MODERATE SEVERITY OFFICE 43632 EMMIE CANTRELL OUTPATIEN 6 6 AMA T VISIT CHIROPRAC 15 TIC CENTE MINUTES OFFICE 62137 ANTONIO ALMONTE OUTPATIEN 6 6 [facility] 25 MINUTES OFFICE 83974 [facility] 6 6 [facility] T VISIT MEDICAL 15 GROUP MINUTES HOSPITAL ANTONIO - 6 6 [facility] OUTPATIEN INC T OFFICE 76639 [facility] YOLANDE OUTPATIEN 6 6 PHYSICIAN STONE T VISIT S GROUP DOMINGO ALANIZ 25 MINUTES OFFICE 78486 ROSIBEL ROMAN OUTPATIEN 6 6 JESSIE BOTELLO SHASTA T VISIT 15 MINUTES OFFICE 95697 [facility] JEFFRY OUTPATIEN 6 6 PHYSICIAN HUGH T VISIT S GROUP 15 MINUTES OFFICE 57778 [facility] JEFFRY OUTPATIEN 6 6 PHYSICIAN HUGH T VISIT S GROUP 15 MINUTES OFFICE 49473 ANTONIO EASLEY OUTPATIEN 6 6 [facility] ANTONIO - 5 6 [facility] INPATIENT INC OFFICE 72000 ROSIBEL ROMAN OUTPATIEN 5 5 JESSIE BOTELLO SHASTA T VISIT 15 MINUTES HOSPITAL ANTONIO - 5 5 [facility] OUTPATIEN INC T HOSPITAL ANTONIO - 5 5 [facility] OUTPATIEN INC T OFFICE 05951 ROSIBEL ROMAN OUTPATIEN 5 5 JESSIE BOTELLO SHASTA T VISIT 25 MINUTES OFFICE 56191 EMMIE SALEEM OUTPATIEN 5 5 [facility] T VISIT CHIROPRAC 10 TIC CENTE MINUTES OFFICE 92839 ANTONIO BELTRAN OUTPATIEN 5 5 [facility] VISIT [facility] 15 MINUTES [facility] AN[facility] - 5 5 [facility] OUTPATIEN INC T EMERGENCY 14992 [facility] TERAN 5 5 PHYSICIAN HUGH DEPARTMEN [facility], [facility] T VISIT HIGH/URGE NT SEVERITY HOSPITAL ANTONIO - 5 5 [facility] OUTPATIEN INC T EMERGENCY 47546 ANTONIO 5 5 [facility] DEPARTMEN INC T VISIT MODERATE SEVERITY EMERGENCY 06264 ANTONIO Apodaca 5 5 [facility] T VISIT P MODERATE SEVERITY EMERGENCY 34640 ANTONIO 5 5 [facility] T VISIT HIGH/URGE NT SEVERITY [facility] AN[facility] - 5 5 [facility] T OFFICE 61328 ROSIBEL ROMAN OUTPATIEN 5 5 JESSIE VEGAS T VISIT 15 MINUTES HOSPITAL ANTONIO - 5 5 [facility] OUTPATIEN [facility] T OFFICE 36862 ROSIBEL ROMAN OUTPATIEN 5 5 JESSIE VEGAS T VISIT 15 MINUTES HOSPITAL ANTONIO - 5 5 [facility] OUTPATIEN [facility] T HOSPITAL ANTONIO - 5 5 [facility] OUTPATIEN [facility] T OFFICE 38693 ROSIBEL ROMAN OUTPATIEN 5 5 JESSIE VEGAS T VISIT 15 MINUTES OFFICE 36743 ROSIBEL ROMAN OUTPATIEN 5 5 JESSIE VEGAS T VISIT 15 MINUTES HOSPITAL ANTONIO - 5 5 [facility] OUTPATIEN [facility] T
--- OUTSIDE RECORDS SUMMARY | 2016-10-16 19:46 | External Medical Summary Rpt ---
Demographics Preferred Language Swazi Marital Status Unknown Shinto Affiliation Unknown Race Unknown Ethnic Group Unknown Author Author , Organization [employer] Address Unknown Phone Unavailable Purpose Continuity of Care Document - through 2016 Immunization No patient found.
--- OUTSIDE RECORDS SUMMARY | 2016-10-16 19:46 | External Medical Summary Rpt ---
Demographics Preferred Language Luxembourger Marital Status Unknown Anabaptism Affiliation Unknown Race Unknown Ethnic Group Unknown Author Author , Organization [employer] Address Unknown Phone Unavailable Purpose Continuity of Care Document - through 2016 Immunization No patient found.
--- OUTSIDE RECORDS SUMMARY | 2016-10-16 19:46 | External Medical Summary Rpt ---
Author Author , Organization [employer] Address Unknown Phone Unavailable Care Team Providers Care Hay Stacker Operator Name Role Phone [facility] Unavailable Unavailable MEDICAL GROUP, [facility] BEINEKE HARINDER, BEINEKE Unavailable [...] Unavailable JESSIE LOPEZ MD Unavailable Unavailable SHASTA [facility] Unavailable Unavailable INC, [facility] Unavailable [facility]available [facility]PITAL, [facility] Unavailable Unavailable [facility]PITAL P, [facility] P [facility], Unavailable Unavailable [facility] CANTRELL AMA, CANTRELL Unavailable Unavailable [facility], Unavailable Unavailable [facility], Unavailable Unavailable [facility], Unavailable Unavailable [facility] Un[facility], [facility] RNEEE PRA, RENEE PRA Unavailable Unavailable PICKLESIMER JR SANTOSH, Unavailable Unavailable [facility]ICKLESIMER JR SANTOSH SHANIKA HEN, SHANIKA Unavailable Unavailable HEN CUNNINGHAM, CUNNINGHAM Unavailable Unavailable SADEK MOH, SADEK MOH Unavailable Unavailable SCHULSTAD CAM, Unavailable Unavailable SCHULSTAD CAM STONE, STONE Unavailable Unavailable SAVANNA BARKER, SAVANNA Unavailable Brandee BARKER Purpose Continuity of Care Document - 06-16-2014 through 2016 Problems Code Diagnosis DOS Provider Status [id number] PAIN IN 07-10-2016 [place] RIGHT CHIROPRACTI SHOULDER [...] SOMATIC CHIROPRACTI DYSFUNCTION C CENTE LOWER EXTREMITY [id number] ACUTE 06-29-2016 [facility] SUPPURATIVE PHYSICIANS OM W/O GROUP RUPT EAR DRUM RT EAR R109 UNSPECIFIED 06-29-2016 [facility] ABDOMINAL PHYSICIANS PAIN GROUP J40 BRONCHITIS 05-25-2016 [facility] NOT PHYSICIANS SPECIFIED GROUP ACUTE OR CHRONIC J0100 ACUTE 05-22-2016 [facility] MAXILLARY PHYSICIANS SINUSITIS GROUP UNSPECIFIED Z1231 ENCOUNTER 05-01-2016 [place] SCREENING MEDICAL MAMMO MALIG IMAGING ASS NEOPLASM BREAST N951 MENOPAUSAL 04-25-2016 [facility] AND FEMALE PHYSICIANS CLIMACTERIC GROUP STATES [id number] 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[facility] 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 GENERAL RTN GROUP W/O ABNORMAL FIND Z1212 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[facility] SCREENING PHYSICIANS MALIGNANT GROUP NEOPLASM RECTUM J0390 ACUTE 04-13-2016 [facility] TONSILLITIS PHYSICIANS GROUP UNSPECIFIED M542 CERVICALGIA 03-30-2016 [place] CHIROPRACTI C CENTE N252EED SPRAIN 03-30-2016 [place] LIGAMENTS CHIROPRACTI LUMBAR C CENTE SPINE INITIAL ENCOUNTER [id number] STRAIN 03-30-2016 [place] MUSCLE CHIROPRACTI FASCIA & C CENTE TENDON LOW BACK INITIAL W61696 PAIN IN 03-28-2016 [place] LEFT HAND MEDICAL IMAGING ASS M7989 OTHER 03-28-2016 [place] SPECIFIED MEDICAL SOFT TISSUE IMAGING ASS DISORDERS 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 M654 RADIAL 03-15-2016 [facility] STYLOID PHYSICIANS TENOSYNOVIT GROUP IS DE QUERVAIN A72964 GANGLION 03-15-2016 [facility] RIGHT WRIST PHYSICIANS GROUP [id number] GANGLION 03-15-2016 [facility] LEFT WRIST PHYSICIANS GROUP J029 ACUTE 03-07-2016 [facility] PHARYNGITIS PHYSICIANS GROUP UNSPECIFIED B80751 PAIN IN 03-07-2016 [place] LEFT WRIST MEDICAL IMAGING ASS [id number] GANGLION 03-07-2016 [facility] RIGHT HAND PHYSICIANS GROUP X59493 GANGLION 03-07-2016 [facility] LEFT HAND PHYSICIANS GROUP L65317 PAIN IN 03-07-2016 [place] [facility]ICAL [facility] ASS M9903 SEGMENTAL & 01-21-2016 [place] SOMATIC CHIROPRACTI DYSFUNCTION C CENTE OF LUMBAR REGION M545 LOW BACK 01-11-2016 [place] PAIN CHIROPRACTI C CENTE I10 ESSENTIAL 01-04-2016 [facility] HYPERTENSIO INC N K1120 SIALOADENIT 01-04-2016 [facility], UNSPECIFIED PLLC K1121 ACUTE 01-04-2016 [facility]IALOADENIT [facility] IS INC J329 CHRONIC 12-27-2015 [facility] SINUSITIS [facility] J0140 ACUTE 11-22-2015 [facility] S MEDICAL UNSPECIFIED GROUP H6980 OTHER SPEC 11-09-2015 [facility] DISORDERS PHYSICIANS EUSTACHIAN GROUP TUBE UNS EAR Y87885 UNSPECIFIED 11-09-2015 [facility] ASTHMA PHYSICIANS UNCOMPLICAT GROUP ED R5383 OTHER 11-09-2015 [facility] FATIGUE PHYSICIANS GROUP Z840 FAMILY 11-09-2015 [facility] HISTORY PHYSICIANS DISEASES GROUP SKIN & SUBQ TISSUE Z0100 ENCOUNTER 11-04-2015 [facility] EXAM EYES & GRE VISION W/O ABNORMAL FIND H6690 OTITIS 09-22-2015 [facility] MEDIA PHYSICIANS UNSPECIFIED GROUP UNSPECIFIED EAR J040 ACUTE 09-22-2015 [facility] LARYNGITIS PHYSICIANS GROUP [id number] OTHER ACUTE 09-12-2015 [facility] DOMINICK OM RECURRENT BILAT J0190 ACUTE 09-12-2015 [facility] SINUSITIS [facility] J209 ACUTE 09-12-2015 [facility] BRONCHITIS [facility] D259 LEIOMYOMA 06-03-2015 [facility] OF [facility] LLC UNSPECIFIED K660 PERITONEAL 06-03-2015 [facility] ADHESIONS [facility] POSTPROC INC POSTINFECTI ON N736 FEMALE 06-03-2015 [facility] PELVIC PHYSICIANS PERITONEAL GROUP ADHESIONS POSTINFECTI VE N800 ENDOMETRIOS 06-03-2015 [facility] IS OF LLC UTERUS N831 CORPUS 06-03-2015 [facility] LUTEUM CYST LLC N8320 UNSPECIFIED 06-03-2015 [facility] OVARIAN PHYSICIANS CYSTS GROUP N856 INTRAUTERIN 06-03-2015 [facility] E SYNECHIAE LLC N938 OTHER SPEC 06-03-2015 [facility] ABNORMAL PHYSICIANS UTERINE & GROUP VAGINAL BLEEDING R102 PELVIC AND 06-03-2015 [facility] PERINEAL [facility] PAIN INC B9689 OTH SPEC 05-24-2015 [facility] Ceballos BACTERIAL JESSIE BOTELLO AGNT CAUSE DZ CLASSIFIED ELSW N760 ACUTE 05-24-2015 [facility] Ceballos VAGINIXENA ROMAN MD B08152 ENCOUNTER 05-24-2015 [facility] FOR OTHER [facility] PREPROCEDUR INC AL EXAMINATION N852 HYPERTROPHY 05-10-2015 [place] [facility] N9489 OTH COND 05-04-2015 [facility] Ceball[facility] ASSOC W/FE JESSIE BOTELLO GEN ORGN & MENSTRUAL CYCL 4019 UNSPECIFIED 02-03-2015 [facility] N 73710 ASTHMA, 02-03-2015 [facility] UNSPECIFIED [facility] UNSPECIFIED STATUS 5990 URINARY 02-03-2015 [facility] SITE NOT SPECIFIED 54815 ABDOMINAL 01-05-2015 [facility] PAIN OTHER [facility] SPECIFIED INC SITE 64761 OTHER 11-03-2014 [place] SPECIFIED MEDICAL DISORDER OF IMAGING ASS KIDNEY AND URETER 90031 ABDOMINAL 11-03-2014 [facility] PAIN RIGHT [facility] UPPER INC QUADRANT V1301 PERSONAL 11-03-2014 [facility] HISTORY OF [facility] URINARY INC CALCULI 462 ACUTE 10-07-2014 [facility] PHARYNGITIS [facility] P 56711 ACUTE 10-07-2014 [facility] LARYNG[address], [facility] P MENTION OF OBSTRUCTIO 40630 UNSPECIFIED 09-14-2014 ROSIBEL Ceballos VAGINIXENA ROMAN MD [...] NO 00 2- 7- 00 01 ve MS 52 20 20 16 AI [place] 00 [...] MG #3 TA 93 BL 8 ET MS 59 01 02 10 5 00 RI [...] NO 00 5- 0- 00 01 ve MS 52 20 20 16 AI IL 00 [...] MG #3 93 TA 8 BL ET MS 00 12 01 20 10 00 RI Ac OM 60 -2 -2 0. 00 TE ti ET 31 2- 0- 00 01 ve RAMIRES 58 20 20 0 16 AI ZI 65 16 17 36 D NE 4 14 PH -D AR M MA SY CY RU P #3 93 8 MS 00 12 01 10 5 00 RI [...] NO 00 5- 3- 00 01 ve MS 52 20 20 16 AI IL 00 16 17 26 D -H [address] AR Z MA 20 CY -2 5 #3 MG 93 8 TA B Procedures Procedure DOS Code Location Performer Comment MANUAL 51328 [place] [facility] THERAP[facility] 7 TQS 1/> CH[facility]OP[facility] REGIONS TIC CENTE EACH 15 MINUTES CHIROPRAC 11292 [place] T[facility] TIC 7 MANIPULAT CHIROPRAC DOMINICK TX TIC CENTE SPINAL 1-2 REGIONS INJECTION J0696 [facility] STONE 7 PHYSICIAN CEFTRIAXO S GROUP NE SODIUM PER 250 MG URNLS DIP 80749 [facility] 7 PHYSICIAN PHYSICIAN STICK/TAB S GROUP S GROUP LET RGNT NON-AUTO W/O MICRSCP THERAPEUT 72063 [facility] STONE IC 7 PHYSICIAN PROPHYLAC S GROUP TIC/DX INJECTION SUBQ/IM THERAPEUT 22209 [facility] STONE IC 6 PHYSICIAN PROPHYLAC S GROUP TIC/DX INJECTION SUBQ/IM INJECTION J0696 [facility] STONE 6 PHYSICIAN CEFTRIAXO S GROUP NE SODIUM PER 250 MG INJECTION J0696 [facility] FRYMAN 6 PHYSICIAN CEFTRIAXO S GROUP NE SODIUM PER 250 MG THERAPEUT 66401 [facility] FRYMAN IC 6 PHYSICIAN PROPHYLAC S GROUP TIC/DX INJECTION SUBQ/IM SCREENING G0202 [facility] 6 [facility] MAMMOGRAP INC INC HY MICHELE INCL CAD WHEN PERFORMD COMPUTER- 02410 [facility] AIDED 6 [facility] DETECTION INC INC SCREENING MAMMOGRAP HY CULTURE 70222 [facility] HARPEL CHLAMYDIA 6 PHYSICIAN SHASTA ANY S GROUP SOURCE CYTP C/V 77354 BIO BIO AUTO THIN 6 REFERNCE REFERNCE LYR 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 LABORATOR PREPJ SCR IES IES MNL RESCR PHYS IADNA 66578 BIO BIO TRICHOMON 6 REFERNCE REFERNCE LABORATOR LABORATOR VAGINALIS IES IES AMPLIFIED PROBE TECH IADNA 41650 BIO BIO CHLAMYDIA 6 REFERNCE REFERNCE LABORATOR LABORATOR TRACHOMAT IES IES IS AMPLIFIED PROBE TQ URINLS 16718 [facility] HARPEL DIP 6 PHYSICIAN SHASTA STICK/TAB S GROUP LET REAGNT NON-AUTO MICRSCPY IADNA 47635 [facility] NEISSERIA 6 PHYSICIAN PHYSICIAN S GROUP S GROUP GONORRHOE AE DIRECT PROBE TQ IADNA 79906 BIO BIO NEISSERIA 6 REFERNCE REFERNCE LABORATOR LABORATOR GONORRHOE IES IES AE AMPLIFIED PROBE TQ IADNA NOS 67429 BIO BIO 6 REFERNCE REFERNCE AMPLIFIED LABORATOR LABORATOR PROBE TQ IES IES EACH ORGANISM INJECTION J0696 [facility] FRYMAN 6 PHYSICIAN EUG CEFTRIAXO S GROUP NE SODIUM PER 250 MG THERAPEUT 46984 [facility] FRYMAN IC 6 PHYSICIAN EUG PROPHYLAC S GROUP TIC/DX INJECTION SUBQ/IM MANUAL 07996 [place] CANTRELL THERAPY 6 AMA TQS 1/> CHIROPRAC REGIONS TIC CENTE EACH 15 MINUTES CHIROPRAC 88345 [place] CANTRELL TIC 6 AMA MANIPULAT CHIROPRAC DOMINICK TX TIC CENTE SPINAL 3-4 REGIONS CHIROPRAC 73543 [place] CANTRELL TIC 6 AMA MANIPLTV CHIROPRAC TX TIC CENTE EXTRASPIN AL 1/> REGION MRI UPPER 05161 [place] JACOB 6 MEDICAL EXTREMITY IMAGING OTH THAN ASS JT W/O CONTR MATRL APPL 63235 [place] CANTRELL MODALITY 6 AMA 1/> AREAS CHIROPRAC ELEC TIC CENTE STIMJ UNATTENDE D CHIROPRAC 34480 [place] CANTRELL TIC 6 AMA MANIPULAT CHIROPRAC DOMINICK TX TIC CENTE SPINAL 3-4 REGIONS MANUAL 68157 [place] CANTRELL THERAPY 6 AMA TQS 1/> CHIROPRAC REGIONS TIC CENTE EACH 15 MINUTES APPL 15415 [place] CANTRELL MODALITY 6 AMA 1/> AREAS CHIROPRAC TIC CENTE ULTRASOUN D EA 15 MIN APPL 29137 [place] CANTRELL MODALITY 6 AMA 1/> AREAS CHIROPRAC TIC CENTE ULTRASOUN D EA 15 MIN MANUAL 16351 [place] CANTRELL THERAPY 6 AMA TQS 1/> CHIROPRAC REGIONS TIC CENTE EACH 15 MINUTES CHIROPRAC 43080 [place] CANTRELL TIC 6 AMA MANIPULAT CHIROPRAC DOMINICK TX TIC CENTE SPINAL 3-4 REGIONS RADEX 38073 [place] MAZARIEGOS ALL WRIST 2 6 MEDICAL VIEWS IMAGING ASS THERAPEUT 83926 [facility] IC 6 PHYSICIAN PHYSICIAN PROPHYLAC S GROUP S GROUP TIC/DX INJECTION SUBQ/IM RADEX 83904 [place] MAZARIEGOS ALL HAND 2 6 MEDICAL VIEWS IMAGING ASS APPL 49430 [place] CANTRELL MODALITY 6 AMA 1/> AREAS CHIROPRAC ELEC TIC CENTE STIMJ UNATTENDE D APPL 48057 [place] CANTRELL MODALITY 6 AMA 1/> AREAS CHIROPRAC ELEC TIC CENTE STIMJ UNATTENDE D CHIROPRAC 82896 [place] CANTRELL TIC 6 AMA MANIPULAT CHIROPRAC DOMINICK TX TIC CENTE SPINAL 3-4 REGIONS MANUAL 15637 [place] CANTRELL THERAPY 6 AMA TQS 1/> CHIROPRAC REGIONS TIC CENTE EACH 15 MINUTES APPL 99265 [place] CANTRELL MODALITY 6 AMA 1/> AREAS CHIROPRAC TIC CENTE ULTRASOUN D EA 15 MIN APPL 77732 [place] CANTRELL MODALITY 6 AMA 1/> AREAS CHIROPRAC TIC CENTE ULTRASOUN D EA 15 MIN MANUAL 73662 [place] CANTRELL THERAPY 6 AMA TQS 1/> CHIROPRAC REGIONS TIC CENTE EACH 15 MINUTES CHIROPRAC 20671 [place] CANTRELL TIC 6 AMA MANIPULAT CHIROPRAC DOMINICK TX TIC CENTE SPINAL 3-4 REGIONS APPL 67065 [place] CANTRELL MODALITY 6 AMA 1/> AREAS CHIROPRAC ELEC TIC CENTE STIMJ UNATTENDE D APPL 11073 [place] CANTRELL MODALITY 6 AMA 1/> AREAS CHIROPRAC ELEC TIC CENTE STIMJ UNATTENDE D CHIROPRAC 96588 [place] CANTRELL TIC 6 AMA MANIPULAT CHIROPRAC DOMINICK TX TIC CENTE SPINAL 3-4 REGIONS MANUAL 68972 [place] CANTRELL THERAPY 6 AMA TQS 1/> CHIROPRAC REGIONS TIC CENTE EACH 15 MINUTES APPL 36776 [place] CANTRELL MODALITY 6 AMA 1/> AREAS CHIROPRAC TIC CENTE ULTRASOUN D EA 15 MIN APPL 42539 [place] CANTRELL MODALITY 6 AMA 1/> AREAS CHIROPRAC TIC CENTE ULTRASOUN D EA 15 MIN MANUAL 34946 [place] CANTRELL THERAPY 6 AMA TQS 1/> CHIROPRAC REGIONS TIC CENTE EACH 15 MINUTES CHIROPRAC 69165 [place] CANTRELL TIC 6 AMA MANIPULAT CHIROPRAC DOMINICK TX TIC CENTE SPINAL 3-4 REGIONS APPL 62520 [place] CANTRELL MODALITY 6 AMA 1/> AREAS CHIROPRAC ELEC TIC CENTE STIMJ UNATTENDE D APPL 40069 [place] CANTRELL MODALITY 6 AMA 1/> AREAS CHIROPRAC ELEC TIC CENTE STIMJ UNATTENDE D CHIROPRAC 27630 [place] CANTRELL TIC 6 AMA MANIPLTV CHIROPRAC TX TIC CENTE EXTRASPIN AL 1/> REGION CHIROPRAC 98623 [place] CANTRELL TIC 6 AMA MANIPULAT CHIROPRAC DOMINICK TX TIC CENTE SPINAL 3-4 REGIONS MANUAL 93105 [place] CANTRELL THERAPY 6 AMA TQS 1/> CHIROPRAC REGIONS TIC CENTE EACH 15 MINUTES APPL 01523 [place] CANTRELL MODALITY 6 AMA 1/> AREAS CHIROPRAC TIC CENTE ULTRASOUN D EA 15 MIN THERAPEUT 65144 [place] CANTRELL IC PX 1/> 6 AMA AREAS CHIROPRAC EACH 15 TIC CENTE MIN EXERCISES APPL 72152 [place] CANTRELL MODALITY 6 AMA 1/> AREAS CHIROPRAC TIC CENTE ULTRASOUN D EA 15 MIN MANUAL 78289 [place] CANTRELL THERAPY 6 AMA TQS 1/> CHIROPRAC REGIONS TIC CENTE EACH 15 MINUTES CHIROPRAC 60792 [place] CANTRELL TIC 6 AMA MANIPULAT CHIROPRAC DOMINICK TX TIC CENTE SPINAL 3-4 REGIONS CHIROPRAC 44726 [place] CANTRELL TIC 6 AMA MANIPLTV CHIROPRAC TX TIC CENTE EXTRASPIN AL 1/> REGION APPL 81497 [place] CANTRELL MODALITY 6 AMA 1/> AREAS CHIROPRAC ELEC TIC CENTE STIMJ UNATTENDE D APPL 74771 [place] CANTRELL MODALITY 6 AMA 1/> AREAS CHIROPRAC TRACTION TIC CENTE MECHANICA L APPL 08891 [place] CANTRELL MODALITY 6 AMA 1/> AREAS CHIROPRAC TRACTION TIC CENTE MECHANICA L APPL 66320 [place] CANTRELL MODALITY 6 AMA 1/> AREAS CHIROPRAC ELEC TIC CENTE STIMJ UNATTENDE D CHIROPRAC 55058 [place] CANTRELL TIC 6 AMA MANIPLTV CHIROPRAC TX TIC CENTE EXTRASPIN AL 1/> REGION CHIROPRAC 03929 [place] CANTRELL TIC 6 AMA MANIPULAT CHIROPRAC DOMINICK TX TIC CENTE SPINAL 3-4 REGIONS MANUAL 30274 [place] CANTRELL THERAPY 6 AMA TQS 1/> CHIROPRAC REGIONS TIC CENTE EACH 15 MINUTES APPL 89139 [place] CANTRELL MODALITY 6 AMA 1/> AREAS CHIROPRAC TIC CENTE ULTRASOUN D EA 15 MIN APPL 89208 [place] CANTRELL MODALITY 6 AMA 1/> AREAS CHIROPRAC TIC CENTE ULTRASOUN D EA 15 MIN MANUAL 32996 [place] CANTRELL THERAPY 6 AMA TQS 1/> CHIROPRAC REGIONS TIC CENTE EACH 15 MINUTES CHIROPRAC 64538 [place] CANTRELL TIC 6 AMA MANIPULAT CHIROPRAC DOMINICK TX TIC CENTE SPINAL 3-4 REGIONS CHIROPRAC 30492 [place] CANTRELL TIC 6 AMA MANIPLTV CHIROPRAC TX TIC CENTE EXTRASPIN AL 1/> REGION APPL 67349 [place] CANTRELL MODALITY 6 AMA 1/> AREAS CHIROPRAC ELEC TIC CENTE STIMJ UNATTENDE D APPL 29703 [place] CANTRELL MODALITY 6 AMA 1/> AREAS CHIROPRAC TRACTION TIC CENTE MECHANICA L APPL 45604 [place] CANTRELL MODALITY 6 AMA 1/> AREAS CHIROPRAC ELEC TIC CENTE STIMJ UNATTENDE D APPL 48367 [place] CANTRELL MODALITY 6 AMA 1/> AREAS CHIROPRAC TRACTION TIC CENTE MECHANICA L CHIROPRAC 31513 [place] CANTRELL TIC 6 AMA MANIPLTV CHIROPRAC TX TIC CENTE EXTRASPIN AL 1/> REGION CHIROPRAC 63886 [place] CANTRELL TIC 6 AMA MANIPULAT CHIROPRAC DOMINICK TX TIC CENTE SPINAL 3-4 REGIONS MANUAL 00280 [place] CANTRELL THERAPY 6 AMA TQS 1/> CHIROPRAC REGIONS TIC CENTE EACH 15 MINUTES APPL 05184 [place] CANTRELL MODALITY 6 AMA 1/> AREAS CHIROPRAC TIC CENTE ULTRASOUN D EA 15 MIN APPL 06993 [place] CANTRELL MODALITY 6 AMA 1/> AREAS CHIROPRAC TIC CENTE ULTRASOUN D EA 15 MIN MANUAL 76470 [place] CANTRELL THERAPY 6 AMA TQS 1/> CHIROPRAC REGIONS TIC CENTE EACH 15 MINUTES CHIROPRAC 39694 [place] CANTRELL TIC 6 AMA MANIPULAT CHIROPRAC DOMINICK TX TIC CENTE SPINAL 3-4 REGIONS RADEX 78194 [place] CANT[facility] SPINE 6 AMA LUMBOSACR CHIROPRAC AL 2/3 TIC CENTE VIEWS CHIROPRAC 07904 [place] CANT[facility]LL TIC 6 AMA MANIPLTV CHIROPRAC TX TIC CENTE EXTRASPIN AL 1/> REGION APPL 41623 [place] CANT[facility]LL MODALITY 6 AMA 1/> AREAS CHIROPRAC TRACTION TIC CENTE MECHANICA L APPL 18699 [place] CANTRELL MODALITY 6 AMA 1/> AREAS CHIROPRAC ELEC TIC CENTE STIMJ UNATTENDE D APPL 49117 [place] CANT[place]LL MODALITY 6 AMA 1/> AREAS CHIROPRAC ELEC TIC CENTE STIMJ UNATTENDE D APPL 93160 [place] CANTRELL MODALITY 6 AMA 1/> AREAS CHIROPRAC TRACTION TIC CENTE MECHANICA L CHIROPRAC 66348 [place] CANT[place]LL TIC 6 AMA MANIPLTV CHIROPRAC TX TIC CENTE EXTRASPIN AL 1/> REGION CHIROPRAC 10726 [place] CANT[place]LL TIC 6 AMA MANIPULAT CHIROPRAC DOMINICK TX TIC CENTE SPINAL 3-4 REGIONS MANUAL 86900 [place] CANT[facility]LL THERAPY 6 AMA TQS 1/> CHIROPRAC REGIONS TIC CENTE EACH 15 MINUTES APPL 93692 [place] CANTRELL MODALITY 6 AMA 1/> AREAS CHIROPRAC TIC CENTE ULTRASOUN D EA 15 MIN APPL 41854 [place] CANTRELL MODALITY 6 AMA 1/> AREAS CHIROPRAC TIC CENTE ULTRASOUN D EA 15 MIN CHIROPRAC 18374 [place] CANTRELL TIC 6 AMA MANIPULAT CHIROPRAC DOMNIICK TX TIC CENTE SPINAL 3-4 REGIONS MANUAL 01015 [place] CANT[place]LL THERAPY 6 AMA TQS 1/> CHIROPRAC REGIONS TIC CENTE EACH 15 MINUTES CHIROPRAC 94183 [place] CANTRELL TIC 6 AMA MANIPLTV CHIROPRAC TX TIC CENTE EXTRASPIN AL /> REGION APPL 12880 [place] CANTRELL MODALITY 6 AMA 1/> AREAS CHIROPRAC ELEC TIC CENTE STIMJ UNATTENDE D APPL 70112 [place] CANTRELL MODALITY 6 AMA 1/> AREAS CHIROPRAC TRACTION TIC CENTE MECHANICA L APPL 77493 [place] CANTRELL MODALITY 6 AMA 1/> AREAS CHIROPRAC ELEC TIC CENTE STIMJ UNATTENDE D APPL 61161 [place] CANT[place]LL MODALITY 6 AMA 1/> AREAS CHIROPRAC TRACTION TIC CENTE MECHANICA L CHIROPRAC 37581 [place] CANT[place]LL TIC 6 AMA MANIPLTV CHIROPRAC TX TIC CENTE EXTRASPIN AL 1/> REGION MANUAL 64269 [place] CANTRELL THERAPY 6 AMA TQS 1/> CHIROPRAC REGIONS TIC CENTE EACH 15 MINUTES CHIROPRAC 01472 [place] CANT[place]LL TIC 6 AMA MANIPULAT CHIROPRAC DOMINICK TX TIC CENTE SPINAL 3-4 REGIONS CHIROPRAC 83828 [place] CANTRELL TIC 6 AMA MANIPULAT CHIROPRAC DOMINICK TX TIC CENTE SPINAL 3-4 REGIONS MANUAL 82571 [place] CANTRELL THERAPY 6 AMA TQS 1/> CHIROPRAC REGIONS TIC CENTE EACH 15 MINUTES CHIROPRAC 29611 [place] CANTRELL TIC 6 AMA MANIPLTV CHIROPRAC TX TIC CENTE EXTRASPIN AL 1/> REGION APPL 70376 [place] CANTRELL MODALITY 6 AMA 1/> AREAS CHIROPRAC TRACTION TIC CENTE MECHANICA L APPL 79864 [place] MODALITY 6 1/> AREAS CHIROPRAC CHIROPRAC TRACTION TIC CENTE TIC CENTE MECHANICA L APPL 02479 [place] CANTRELL MODALITY 6 AMA 1/> AREAS CHIROPRAC ELEC TIC CENTE STIMJ UNATTENDE D CHIROPRAC 91299 [place] CANTRELL TIC 6 AMA MANIPLTV CHIROPRAC TX TIC CENTE EXTRASPIN AL 1/> REGION MANUAL 23305 [place] CANTRELL THERAPY 6 AMA TQS 1/> CHIROPRAC REGIONS TIC CENTE EACH 15 MINUTES CHIROPRAC 16953 [place] CANTRELL TIC 6 AMA MANIPULAT CHIROPRAC DOMINICK TX TIC CENTE SPINAL 3-4 REGIONS APPL 30817 [place] CANTRELL MODALITY 6 AMA 1/> AREAS CHIROPRAC TIC CENTE ULTRASOUN D EA 15 MIN THERAPEUT 58110 [place] CANT[place] IC PX 1/> 6 AMA AREAS CHIROPRAC EACH 15 TIC CENTE MIN EXERCISES APPL 01122 [place] CANT[facility]LL MODALITY 6 AMA 1/> AREAS CHIROPRAC TIC CENTE ULTRASOUN D EA 15 MIN CHIROPRAC 53741 [place] TIC 6 AMA MANIPULAT CHIROPRAC DOMINICK TX TIC CENTE SPINAL 3-4 REGIONS MANUAL 53705 [place] THERAPY 6 AMA TQS 1/> CHIROPRAC REGIONS TIC CENTE EACH 15 MINUTES CHIROPRAC 52933 [place] TIC 6 AMA MANIPLTV CHIROPRAC TX TIC CENTE EXTRASPIN AL 1/> REGION APPL 64256 [place] MODALITY 6 1/> AREAS CHIROPRAC CHIROPRAC ELEC TIC CENTE TIC CENTE STIMJ UNATTENDE D APPL 65268 [place] MODALITY 6 AMA 1/> AREAS CHIROPRAC TRACTION TIC CENTE MECHANICA L APPL 43348 [place] MODALITY 6 1/> AREAS CHIROPRAC CHIROPRAC TRACTION TIC CENTE TIC CENTE MECHANICA L APPL 90378 [place] MODALITY 6 AMA 1/> AREAS CHIROPRAC ELEC TIC CENTE STIMJ UNATTENDE D CHIROPRAC 55879 [place] TIC 6 AMA MANIPLTV CHIROPRAC TX TIC CENTE EXTRASPIN AL 1/> REGION CHIROPRAC 17861 [place] TIC 6 AMA MANIPULAT CHIROPRAC DOMINICK TX TIC CENTE SPINAL 3-4 REGIONS MANUAL 61810 [place] THERAPY 6 AMA TQS 1/> CHIROPRAC REGIONS TIC CENTE EACH 15 MINUTES APPL 97059 [place] MODALITY 6 AMA 1/> AREAS CHIROPRAC TIC CENTE ULTRASOUN D EA 15 MIN APPL 67285 [place] MODALITY 6 1/> AREAS CHIROPRAC CHIROPRAC TIC CENTE TIC CENTE ULTRASOUN D EA 15 MIN MANUAL 51685 [place] THERAPY 6 AMA TQS 1/> CHIROPRAC REGIONS TIC CENTE EACH 15 MINUTES CHIROPRAC 51090 [place] TIC 6 AMA MANIPULAT CHIROPRAC DOMINICK TX TIC CENTE SPINAL 3-4 REGIONS CHIROPRAC 30866 [place] PRA TIC 6 MANIPLTV CHIROPRAC TX TIC CENTE EXTRASPIN AL 1/> REGION APPL 13025 [place] MODALITY 6 AMA 1/> AREAS CHIROPRAC ELEC TIC CENTE STIMJ UNATTENDE D APPL 22185 [place] MODALITY 6 AMA 1/> AREAS CHIROPRAC TRACTION TIC CENTE MECHANICA L APPL 35580 [place] MODALITY 6 AMA 1/> AREAS CHIROPRAC ELEC TIC CENTE STIMJ UNATTENDE D APPL 37713 [place] MODALITY 6 1/> AREAS CHIROPRAC CHIROPRAC TRACTION TIC CENTE TIC CENTE MECHANICA L CHIROPRAC 36329 [place] TIC 6 AMA MANIPLTV CHIROPRAC TX TIC CENTE EXTRASPIN AL 1/> REGION CHIROPRAC 53884 [place] TIC 6 AMA MANIPULAT CHIROPRAC DOMINICK TX TIC CENTE SPINAL 3-4 REGIONS MANUAL 04275 [place] THERAPY 6 AMA TQS 1/> CHIROPRAC REGIONS TIC CENTE EACH 15 MINUTES MANUAL 02126 [place] THERAPY 6 AMA TQS 1/> CHIROPRAC REGIONS TIC CENTE EACH 15 MINUTES CHIROPRAC 12435 [place] TIC 6 AMA MANIPULAT CHIROPRAC DOMINICK TX TIC CENTE SPINAL 3-4 REGIONS CHIROPRAC 84861 [place] TIC 6 AMA MANIPLTV CHIROPRAC TX TIC CENTE EXTRASPIN AL 1/> REGION APPL 22529 [place] MODALITY 6 1/> AREAS CHIROPRAC CHIROPRAC TRACTION TIC CENTE TIC CENTE MECHANICA L APPL 00479 [place] MODALITY 6 AMA 1/> AREAS CHIROPRAC ELEC TIC CENTE STIMJ UNATTENDE D APPL 16619 [place] MODALITY 6 AMA 1/> AREAS CHIROPRAC ELEC TIC CENTE STIMJ UNATTENDE D APPL 58653 [place] MODALITY 6 AMA 1/> AREAS CHIROPRAC TRACTION TIC CENTE MECHANICA L CHIROPRAC 31390 [place] TIC 6 AMA MANIPLTV CHIROPRAC TX TIC CENTE EXTRASPIN AL 1/> REGION CHIROPRAC 28853 [place] TIC 6 AMA MANIPULAT CHIROPRAC DOMINICK TX TIC CENTE SPINAL 3-4 REGIONS MANUAL 52232 [place] THERAPY 6 AMA TQS 1/> CHIROPRAC REGIONS TIC CENTE EACH 15 MINUTES MANUAL 75793 [place] THERAPY 6 AMA TQS 1/> CHIROPRAC REGIONS TIC CENTE EACH 15 MINUTES CHIROPRAC 44383 [place] TIC 6 AMA MANIPULAT CHIROPRAC DOMINICK TX TIC C[place] SPINAL 3-[place] [address] [place] 1/> AREAS 6 AMA EACH 15 CHIROPRAC MIN TIC CENTE NEUROMUSC REEDUCA CHIROPRAC 67803 [place] TIC 6 AMA MANIPLTV CHIROPRAC TX TIC CENTE EXTRASPIN AL 1/> REGION APPL 21078 [place] MODALITY 6 AMA 1/> AREAS CHIROPRAC TRACTION TIC CENTE MECHANICA L APPL 50472 [place] MODALITY 6 AMA 1/> AREAS CHIROPRAC ELEC TIC CENTE STIMJ UNATTENDE D APPL 65846 [place] MODALITY 6 AMA 1/> AREAS CHIROPRAC ELEC TIC CENTE STIMJ UNATTENDE D APPL 85982 [place] MODALITY 6 AMA 1/> AREAS CHIROPRAC TRACTION TIC CENTE MECHANICA L CHIROPRAC 26911 EMMIE CANTRELL TIC 6 AMA MANIPLTV CHIROPRAC TX TIC CENTE EXTRASPIN AL 1/> [place] [address] EMMIE HUFFELL 1/> AREAS 6 AMA EACH 15 CHIROPRAC MIN TIC CENTE NEUROMUSC REEDUCA CHIROPRAC 43403 EMMIE CANTRELL TIC 6 AMA MANIPULAT CHIROPRAC DOMINICK TX TIC CENTE SPINAL 3-4 REGIONS MANUAL 48476 EMMIE CANTRELL THERAPY 6 AMA TQS 1/> CHIROPRAC REGIONS TIC CENTE EACH 15 MINUTES IAADIADOO 08414 SI[facility] SHANIKA 6 [facility] CC[facility] GROUP GROUP A BLOOD 10583 ANTONIO ALVAREZ COUNT 6 [facility] COMPLETE INC INC AUTO&AUTO DIFRNTL WBC SEDIMENTA 73206 ANTONIO ALVAREZ TIDIAZ RATE 6 [facility] RBC INC INC NON-AUTOM ATED 25 21508 ANTONIO ALVAREZ HYDROXY 6 [facility] INCLUDES INC INC FRACTIONS IF PERFORMED CREATINE 55213 ANTONIO ALVAREZ KINASE 6 [facility] [place] [address] ANTONIO ALVAREZ THYROXINE 6 [facility] TOTAL INC INC ANTINUCLE 85238 ANTONIO ALVAREZ AR 6 [facility] ANTIBODIE INC INC S TYSHAWN COLLECTIO 92361 [facility] LANIER N VENOUS 6 PHYSICIAN STONE BLOOD S GROUP [place] [address] ANTONIO ALVAREZ THYROID 6 [facility] STIMULATI INC INC NG HORMONE TSH C-REACTIV 51850 ANTONIO ALVAREZ E PROTEIN 6 [facility] INC INC DNA 90693 ANTONIO ALVAREZ ANTIBODY 6 [facility] COW CREEK/DO INC INC UBLE STRANDED COMPREHEN 16279 ANTONIO ALVAREZ SIVE 6 [facility] METABOLIC INC INC PANEL OPHTH 34396 [facility] 6 GRE GRE XM&EVAL COMPRE NEW PT 1/> VST THERAPEUT 94006 [facility] JEFFRY IC 6 PHYSICIAN HUGH PROPHYLAC S GROUP TIC/DX INJECTION SUBQ/IM INJECTION J0696 [facility] JEFFRY 6 PHYSICIAN HUGH CEFTRIAXO S GROUP NE SODIUM PER 250 MG INJECTION J1040 [facility] JEFFRY 6 PHYSICIAN HUGH METHYLPRE S GROUP DNISOLONE ACETATE 80 MG INJECTION J1040 [facility] JEFFRY 6 PHYSICIAN HUGH METHYLPRE S GROUP DNISOLONE ACETATE 80 MG THERAPEUT 54311 [facility] JEFFRY IC 6 PHYSICIAN HUGH PROPHYLAC S GROUP TIC/DX INJECTION SUBQ/IM INJECTION J0696 [facility] JEFFRY 6 PHYSICIAN HUGH CEFTRIAXO S GROUP NE SODIUM PER 250 MG INJECTION J1100 [facility]IS[facility] 6 [facility] SONE SODIUM PHOSPHATE 1 MG THERAPEUT 30572 [facility] IC 6 [facility] TIC/DX INJECTION SUBQ/IM INJECTION J0561 [address] G [place] E [id number] [place] [address] P&[facility] LABS, PICKLESIM SURG 5 [facility] PATHOLOGY GROSS&HUGH ROSCOPIC EXAM TOTAL 74561 [facility] SCHULSTAD ABDOMINAL 5 PHYSICIAN CAM S GROUP HYSTERECT W/WO RMVL TUBE OVARY ANESTHESI 95533 [facility] A 5 ANESTH INTRAPERI OF THE TONEAL BLUE LOWER ABD W/LAPS NOS COLLECTIO 94516 ANTONIO Cevallos VENOUS 5 [facility] BLOOD INC INC VENIPUNCT URE SMR PRIM 51354 ROSIBEL ROMAN SRC WET 5 JESSIE BOTELLO [facility] NFCT AGT CULTURE 45614 ANTONIO ALVAREZ BACTERIAL 5 [facility] INC INC QUANTTATI VE COLONY COUNT URINE URNLS DIP 50037 ANTONIO ALVAREZ 5 [facility] STICK/TAB INC INC LET REAGENT AUTO MICROSCOP Y BLOOD 51352 ANTONIO ALVAREZ COUNT 5 [facility] COMPLETE INC INC AUTO&AUTO DIFRNTL WBC GONADOTRO 07026 ANTONIO ALVAREZ PIN 5 [facility] CHORIONIC INC INC QUALITATI VE SUSCEPTIB 65247 ANTONIO ALVAREZ LTY STDY 5 [facility] ANTIMICRB INC INC IAL MICRO/AGA R DILUTJ 37579 ANTONIO UGARTEON TRANSVAGI 5 [facility] NAL INC INC URINLS 61993 ROSIBEL ROMAN DIP 5 JESSIE BOTELLO SHASTA STICK/TAB [place] [address] EMMIE HARPER 1/> AREAS 5 GAR EACH 15 CHIROPRAC MIN TIC CENTE NEUROMUSC REEDUCA APPL 29612 CYNCUATE HARPER MODALITY 5 GAR 1/> AREAS CHIROPRAC TRACTION TIC CENTE MECHANICA L CHIROPRAC 39912 CYNCUATE HARPER TIC 5 GAR MANIPULAT CHIROPRAC DOMINICK TX TIC CENTE SPINAL 1-2 REGIONS CHIROPRAC 50047 CYNCUATE HARPER TIC 5 GAR MANIPLTV CHIROPRAC TX TIC CENTE EXTRASPIN AL 1/> REGION CHIROPRAC 06040 CYNCUATE HARPER TIC 5 GAR MANIPLTV CHIROPRAC TX TIC CENTE EXTRASPIN AL 1/> REGION CHIROPRAC 62200 CYNCUATE HARPER TIC 5 GAR MANIPULAT CHIROPRAC DOMINICK TX TIC CENTE SPINAL 1-2 [place] [address] CYNCUATE HARPER 1/> AREAS 5 GAR EACH 15 CHIROPRAC MIN [place] [address] CYNCUATE HARPER 1/> AREAS 5 GAR EACH 15 [place]OP[place] [address] CYNJAREDANA HARPER 1/> AREAS 5 GAR EACH 15 [place]OPR[place] [address] CYNJAREDANA HARPER 1/> AREAS 5 GAR EACH 15 CHIROPRAC MIN TIC CENTE NEUROMUSC REEDUCA CHIROPRAC 08875 CYNCUATE HARPER TIC 5 GAR MANIPULAT CHIROPRAC DOMINICK TX TIC CENTE SPINAL 1-2 REGIONS URNLS DIP 63010 ANTONIO FRYMAN 5 [facility] STICK/TAB HOSPITAL LET RGNT NON-AUTO W/O MICRSCP COMPREHEN 19120 ANTONIO UGARTEON SIVE 5 [facility] METABOLIC INC INC PANEL COLLECTIO 21754 ANTONIO ALVAREZ N VENOUS 5 [facility] BLOOD INC INC VENIPUNCT URE URNLS DIP 80621 ANTONIO ALVAREZ 5 [facility] STICK/TAB INC INC LET REAGENT AUTO MICROSCOP Y BLOOD 65562 ANTONIO ALVAREZ COUNT 5 [facility] COMPLETE INC INC AUTO&AUTO DIFRNTL WBC BLOOD 87134 ANTONIO ALVAREZ COUNT 5 [facility] COMPLETE INC INC AUTO&AUTO DIFRNTL WBC URNLS DIP 97462 ANTONIO ALVAREZ 5 [facility] STICK/TAB INC [place] [address] [facility] [place] COCHRANJACOB ABDOMEN & 5 MEDICAL ARELY PELVIS IMAGING W/O ASS CONTRAST MATERIAL COMPREHEN 30615 ANTONIO ALVAREZ SIVE 5 [facility] METABOLIC INC INC PANEL COMPREHEN 19787 ANTONIO ALVAREZ SIVE 5 [facility] [place] [address] ANTONIO ALVAREZ INFUSION 5 [facility] THERAPY/P INC INC ROPHYLAXI S /DX 1ST TO 1 HR IMMUNOASS 20259 ANTONIO ALVAREZ AY NFCT 5 [facility] AGT ANTB INC INC QUAL/SEMI ANGIE 1 STEP BLOOD 73126 ANTONIO ALVAREZ COUNT 5 [facility] COMPLETE INC INC AUTO&AUTO DIFRNTL WBC UNCLASSIF J3490 ANTONIO ALVAREZ IED DRUGS 5 [facility] INC INC SMR PRIM 67333 ROSIBEL ROMAN SRC WET 5 [facility] NFCT AGT HGB 06894 ROSIBEL ROMAN QUANTITAT 5 [place] [address] ANTONIO ALVAREZ INFUSION 5 [facility] THERAPY INC INC PROPHYLAX IS/DX EA HOUR UNCLASSIF J3490 ANTONIO ALVAREZ IED DRUGS 5 [facility] INC INC BLOOD 06230 ANTONIO ALVAREZ COUNT 5 [facility] HEMOGLOBI INC INC N INJECTION J2405 ANTONIODIAZ ALVAREZ 5 [facility] ONDANSETR INC INC ON HCL PER 1 MG BLOOD 94276 ANTONIO ALVAREZ COUNT 5 [facility] [place] [address] P&C LABS, P&C LABS, SURG 5 [facility] PATHOLOGY GROSS&HUGH ROSCOPIC EXAM COLLECTIO 68251 ANTONIO ALVAREZ N VENOUS 5 [facility] BLOOD INC INC VENIPUNCT URE DILATION 42177 ANTONIO ALVAREZ & 5 [facility] CURETTAGE INC INC DX&/THER NONOBSTET JACQUI ANESTHESI 59707 [facility] VAGINAL 5 ANESTH LUCERO OF THE PROCEDURE BLUE W/BIOPSY NOS COLLECTIO 98364 ANTONIO ALVAREZ N VENOUS 5 [facility] BLOOD INC INC VENIPUNCT URE BLOOD 58601 ANTONIO ALVAREZ COUNT 5 [facility] COMPLETE INC INC AUTO&AUTO DIFRNTL WBC URNLS DIP 06556 ANTONIO ALVAREZ 5 [facility] STICK/TAB INC INC LET REAGENT AUTO MICROSCOP Y CULTURE 53204 ANTONIO ALVAREZ BACTERIAL 5 [facility] INC INC QUANTTATI VE COLONY COUNT URINE URINE 51044 ANTONIO ALVAREZ 5 [facility] H[facility] TEST INC INC VISUAL COLOR CMPRSN METHS 59583 [facility] TRANSVAGI 5 MEDICAL HARINDER NAL IMAGING ASS BLOOD 84674 ANTONIO ALVAREZ COUNT 5 [facility] COMPLETE INC INC AUTO&AUTO DIFRNTL WBC COLLECTIO 43598 ANTONIO ALVAREZ N VENOUS 5 [facility] BLOOD INC INC VENIPUNCT URE SCREENING G0202 ANTONIO ALVAREZ 5 [facility] MAMMOGRAP INC INC HY MICHELE INCL CAD WHEN PERFORMD COMPUTER- 37231 ANTONIO ALVAREZ AIDED 5 [facility] DETECTION INC INC SCREENING MAMMOGRAP HY Encounters Encounter Start End Date Code Location Performer Type Date OFFICE 83521 [facility] STONE OUTPATIEN 7 7 PHYSICIAN T VISIT S GROUP 25 MINUTES OFFICE 78075 H OUTPATIEN 6 6 PHYSICIAN T VISIT S GROUP 15 MINUTES OFFICE 57622 [facility] FRYMAN OUTPATIEN 6 6 PHYSICIAN T VISIT S GROUP 15 MINUTES HOSPITAL ANTONIO - 6 6 [facility] OUTPATIEN INC T PERIODIC 37210 [facility] HARPEL PREVENTIV 6 6 PHYSICIAN SHASTA E MED EST S GROUP PATIENT 40-64YRS OFFICE 84150 [facility] FRYMAN OUTPATIEN 6 6 PHYSICIAN EUG T VISIT S GROUP 15 MINUTES HOSPITAL ANTONIO - 6 6 [facility] OUTPATIEN INC T OFFICE 86060 [facility] [place] OUTPATIEN 6 6 PHYSICIAN T NEW 30 S GROUP MINUTES HOSPITAL ANTONIO - 6 6 [facility] OUTPATIEN INC T OFFICE 95889 [facility] FRYMAN OUTPATIEN 6 6 PHYSICIAN EUG T VISIT S GROUP 15 MINUTES OFFICE 62059 [facility] ARAGON OUTPATIEN 6 6 PHYSICIAN T VISIT GROUP 25 MINUTES OFFICE 37640 JOSÉTHITYSHAWN CANTRELL OUTPATIEN 6 6 AMA T VISIT CHIROPRAC 15 TIC CENTE MINUTES OFFICE 83670 [facility] GAGE OUTPATIEN 6 6 PHYSICIAN T VISIT GROUP 15 MINUTES EMERGENCY 95190 ANTONIO 6 6 [facility] DEPARTMEN INC T VISIT LOW/MODER SEVERITY HOSPITAL ANTONIO - 6 6 [facility] OUTPATIEN INC T EMERGENCY 22776 ALYSIA VILLALOBOS [facility] 6 6 [facility]YSICIAN DEPARTMEN [facility] T VISIT MODERATE SEVERITY OFFICE 83756 EMMIE CANTRELL OUTPATIEN 6 6 AMA T VISIT CHIROPRAC 15 TIC CENTE MINUTES OFFICE 81492 ANTONIO ALMONTE OUTPATIEN 6 6 [facility] 25 MINUTES OFFICE 46816 [facility] SHANIKA OUTPATIEN 6 6 [facility] T VISIT MEDICAL 15 GROUP MINUTES HOSPITAL ANTONIO - 6 6 [facility] OUTPATIEN INC T OFFICE 33942 [facility] YOLANDE OUTPATIEN 6 6 PHYSICIAN STONE T VISIT S GROUP DOMINGO ALANIZ 25 MINUTES OFFICE 01101 ROSIBEL ROMAN OUTPATIEN 6 6 JESSIE BOTELLO SHASTA T VISIT 15 MINUTES OFFICE 54605 [facility] JEFFRY OUTPATIEN 6 6 PHYSICIAN HUGH T VISIT S GROUP 15 MINUTES OFFICE 41631 [facility] JEFFRY OUTPATIEN 6 6 PHYSICIAN HUGH T VISIT S GROUP 15 MINUTES OFFICE 47175 ANTONIO EASLEY OUTPATIEN 6 6 [facility] 15 [facility] ANTONIO - 5 6 [facility] INPATIENT INC OFFICE 42124 ROSIBEL ROMAN OUTPATIEN 5 5 JESSIE BOTELLO SHASTA T VISIT 15 MINUTES HOSPITAL ANTONIO - 5 5 [facility] OUTPATIEN INC T HOSPITAL ANTONIO - 5 5 [facility] OUTPATIEN INC T OFFICE 84787 ROSIBEL ROMAN OUTPATIEN 5 5 JESSIE BOTELLO SHASTA T VISIT 25 MINUTES OFFICE 96359 EMMIE SALEEM OUTPATIEN 5 5 [facility] T VISIT CHIROPRAC 10 TIC CENTE MINUTES OFFICE 83455 ANTONIO BELTRAN OUTPATIEN [address] [facility] - 5 5 [facility] OUTPATIEN INC T EMERGENCY 47948 ALYSIA TERAN 5 5 PHYSICIAN HUGH DEPARTMEN S, [facility] T VISIT HIGH/URGE NT SEVERITY HOSPITAL ANTONIO - 5 5 [facility] OUTPATIEN INC T EMERGENCY 54156 ANTONIO 5 5 [facility] DEPARTMEN INC T VISIT MODERATE SEVERITY EMERGENCY 90697 ANTONIO Apodaca 5 5 [facility] T VISIT P MODERATE SEVERITY EMERGENCY 44182 ANTONIO 5 5 [facility] T VISIT HIGH/URGE NT SEVERITY [facility] - 5 5 [facility] T OFFICE 42153 ROSIBEL ROMAN OUTPATIEN 5 5 JESSIE VEGAS T VISIT 15 MINUTES HOSPITAL ANTONIO - 5 5 [facility] OUTPATIEN [facility] T OFFICE 95198 ROSIBEL ROMAN OUTPATIEN 5 5 JESSIE VEGAS T VISIT 15 MINUTES HOSPITAL ANTNOIO - 5 5 [facility] OUTPATIEN [facility] T HOSPITAL ANTONIO - 5 5 [facility] OUTPATIEN [facility] T OFFICE 56243 ROSIBEL ROMAN OUTPATIEN 5 5 JESSIE VEGAS T VISIT 15 MINUTES OFFICE 24466 ROSIBEL ROMAN OUTPATIEN 5 5 JESSIE VEGAS T VISIT 15 MINUTES HOSPITAL ANTONIO - 5 5 [facility] OUTPATIEN [facility] T
--- NOTE | 2016-10-16 19:57 | Urgent Treatment Center Report ---
History of Present Issue Date/Time Seen by Provider 10/16/161946 Visit Reason Pt arrived:Walked Presenting Problem:P/T C/O OF CHILLS, BODYACHES, SORE THROAT AND SORE EARS FOR 2 DAYS Location if Accident: Onset of symptoms date/time:10/14/16/ or onset unknown for:MEDICAL HX UNKNOWN Have you (or family members/close friends) recently traveled outside the [place]? N If Yes, where/when: Have you had exposure to infectious disease within the past month? TB? Other? Specify: c/o not feeling well since yesterday evening "and going down hill every since". Started w/ general malaise and sore throat yesterday. Today, aches, chills, subjective fever, worsening sore throat, bilateral ear pressure. Tylenol helps "somewhat". Multiple sick contacts. "With everything from strep, to ear infections, to colds. you name it and I have been around it.". Source patient Exam Limitations no limitations ALLERGIES Coded Allergies: erythromycin base (Intermediate, I-HIVES 06/03/15) ibuprofen (Intermediate, SWELLING 06/03/15) levofloxacin (From LEVAQUIN) (S-DIFF. BREATHING 01/04/16) Home Medications Active Scripts Clindamycin Hcl (Clindamycin 300MG) 300 MG PO Q8 #21 CAP Prov: 01/04/16 Reported Medications LISINOPRIL/HYDROCHLOROTHIAZIDE (Lisinopril-Hctz 20-25 MG Tab) 1 TAB PO DAILY #30 AMOXICILLIN/POTASSIUM CLAV (Amox Tr-K Clv 875-125 MG Tab) 1 TAB PO BID #20 Estradiol 1 EACH TD 2 X WEEK #16 History Medical History General CAD? No Angina: No [place]: No Hypertension? Yes Hyperlipidemia? No CHF? No DVT? No PE? No COPD? No Asthma? Yes Anemia? No GERD? No Gastric ulcers? No GI Bleed? No Hernia? No Thyroid Problems? No Hypothyroidism? No CVA? No Seizures? No Diabetes? No Renal Insuffiency? No UTI? Yes Stones? Yes BPH? No GB Disease: Yes Nephritic Syndrome? No Asplenia? No Hepatitis? No Sickle Cell Disease? No Arthritis? No Migraines? No Cataracts? No Glaucoma? No MRSA? No HIV? No TB? No Anxiety? No Depression? No Cancer? No More? No Immunization HX DT/Tetanus < 1 Year Ago Flu Refused Pneumonia Refuses Surgical Hx Previous Surgery?Y C SECTION X 2 TUBAL ORAL SURGERY/WISDOM TEETH GALLBLADDER PARTIAL HYST Family History Family HX Diabetes Yes CAD Yes Hypertension Yes Hyperlipidemia No Cancer Yes TB No Social History Smoking Hx Smoker: Never Smoker Tobacco: No Packs/day N/A Alcohol Alcohol: No Review of Systems All Other Systems Reviewed and Negative Constitutional see HPI Eyes denies drainage ENT see HPI, nose discharge, nose congestion, other (hoarse). denies: ear discharge , throat swelling. Respiratory cough (mild, occasional), denies shortness of breath, denies stridor, denies wheezing Cardiovascular denies chest pain Gastrointestinal denies no symptoms reported Musculoskeletal see HPI Skin denies rash Psychiatric/Neurological denies headache, denies other (dizziness) Physical Exam Vital Signs Vital Signs Date Time Temp Pulse Resp B/P Pulse O2 O2 Flow FiO2 Ox Delivery Rate 10/17 1939 97.9 95 20 151/90 97 General Appearance no apparent distress, obese Eye Exam - bilateral eye normal exam Ear, Nose, Throat normal ENT inspection (x/ mild nasal congestion) Neck non-tender, supple Respiratory Status No: respiratory distress (no cough in clinic). Lung Sounds anterior: lungs clear. posterior: lungs clear. bilateral: lungs clear. Cardiovascular regular rate/rhythm, no peripheral edema, no murmur Neurologic normal exam Skin normal color, warm/dry Lymphatic no adenopathy (anterior cervical) Medical Decision Making LABS/Meds/Orders Pt receiving controlled substance in ED? No Results/Orders Laboratory Tests 10/16/161939: Influenza Type A Ag NOT DETECTED, Influenza Type B Ag NOT DETECTED, Group A Strep Screen NOT DETECTED Orders Procedure Date/time Status [facility] STREP SCREEN 10/17 1943 Complete [facility] FLU A,B 10/17 1943 Complete Departure Departure Time of Disposition 2016 Disposition DC Home or Self Care(routine) Clinical Impression Primary Impression: Upper respiratory infection, viral Condition STABLE Referrals Yaquelin BOTELLO,Heath Frazier (Family) Follow up IMMEDIATELY for new or worsening symptoms OR no noticeable improvement over the next 48-72 hours. 911 for difficulty breathing or swallowing. Patient Instructions DI for Viral Upper Respiratory Infection -- Adult Additional Instructions * No sign of bacterial infection. Likely viral. Virus can take 7-14 days to run their course * Monitor Temp. Tylenol every 4 hours as needed and/or ibuprofen every 6 hours as needed (as long as your primary care doctor has told you that it is ok to take both) for fever/aches/pain. ER if fever no less than 101 despite tylenol and ibuprofen * Encourage fluids, water, gatorade, powerade, pedialyte if infant/toddler/child * warm salt water gargles * warm fluids * sore throat lozenges * sleep elevated * humidifier/vaporizer * flonase 2 sprays each nostril daily but may take 2-3 days to notice improvement with it. * Bromfed may cause drowsiness. Know how it effects you (or your child) before driving, caring for small children, or sending your child to school * * Your throat swab was sent for culture. Those results are typically sent to your primary care. Be sure to follow up in 2-3 days if no improvement so they can review those results and treat if necessary. If you don't have primary care, I recommend you get one but in the mean time, you will have to return to a walk in clinic. Follow up IMMEDIATELY for new or worsening symptoms OR no noticeable improvement over the next 48-72 hours. 911 for difficulty breathing or swallowing. Discharge Counseling Counseled pt/family regarding diagnosis, test results, medications/RX, home care, follow up needs at 2018
[2016-10-16 20:10] LABS: UTC STREP SCREEN NOT DETECTED (NOTDETECTED)
[2016-10-16 20:19] VITALS: BP 151/90
== END 2016-10-16 20:21 | disposition home or self-care (01) ==
LOC: UTC 19:33
PROVIDERS: Nurse Practitioner Family
DX: J06.9 Acute upper respiratory infection, unspecified (principal); I10 Essential (primary) hypertension

== ENCOUNTER 2017-01-12 09:41 | Emergency (ER) | payer MEDICAID ==
[~2017-01-12] VITALS: Ht 172.7 cm; Wt 131.1 kg
[~2017-01-12 09:41] MED LIST changes: +CARVEDILOL3.125 M1 PO; +FUROSEMIDE 40MG40 M1 PO
--- OUTSIDE RECORDS SUMMARY | 2017-01-12 09:52 | External Medical Summary Rpt ---
Author Author , OMAIRA Hannah OMAIRA Address Unknown Phone [email or web address] Care Team Providers Care Fishery Division Chief Name Role Phone [facility] Unavailable Unavailable MEDICAL GROUP, [facility] HERNANDEZ TER, HERNANDEZ TER Unavailable Unavailable JAVIER L, JAVIER L Unavailable Unavailable BESSON, BESSON Unavailable Unavailable [facility]available [facility]available [facility], [facility] MAZARIEGOS, MAZARIEGOS Unavailable Unavailable MAZARIEGOS ALL, MAZARIEGOS ALL Unavailable Unavailable TYSON, TYSON Unavailable Unavailable GAGE, GAGE Unavailable Unavailable GAGE MOTLEY, Unavailable Unavailable GAGE MOTLEY JACOB ARELY, Unavailable Unavailable JACOB ARELY [place] [facility] YOLANDE TOMAS-Zuleyma Unavailable Unavailable YOLANDE ALANIZ-C CORBIN SPARROW JADEN, SPARROW JADEN Unavailable Unavailable TUCKER, TUCKER Unavailable Unavailable ARAGON, ARAGON Unavailable Unavailable FRYMAN, FRYMAN Unavailable Unavailable FRYMAN EUG, FRYMAN Unavailable Unavailable EUG JEFFRY HUGH, JEFFRY Unavailable Unavailable HUGH ROSIBEL ROMAN MD, Unavailable Unavailable ROSIBEL ROMAN SHASTA, HARPEL Unavailable Unavailable SHASTA [facility] Unavailable Unavailable INC, [facility] Unavailable [facility]available H[facility]PITAL, [facility] Unavailable Unavailable HOSPITAL P, [facility] P [facility], Unavailable Unavailable [facility] CANTRELL AMA, CANTRELL Unavailable Unavailable AMA DEY, DEY Unavailable Unavailable [facility] Un[facility], [facility] Janes Jamison MD, Unavailable Unavailable Janes LOPEZ, Unavailable Unavailable EVENS LOPEZ, Unavailable Unavailable EVENS RAMÍREZ, Unavailable Unavailable HARPER RAMÍREZ [facility] Un[facility] Unavailable Unavailable [facility], [facility] MARSHALL, [facility] RENEE PRA, RENEE PRA Unavailable Unavailable PICKLESIMER JR SANTOSH, Unavailable Unavailable [facility] SHANIKA HEN, SHANIKA Unavailable Unavailable HEN CUNNINGHAM, CUNNINGHAM Unavailable Unavailable SADEK MOH, SADEK MOH Unavailable Unavailable SCHULSTAD CAM, Unavailable Unavailable SCHULSTAD CAM STONE, STONE Unavailable Unavailable SAVANNA LUCERO, SAVANNA Unavailable Unavailable LUCERO Purpose Continuity of Care Document - 12-11-2012 through 2016 Problems Code Diagnosis DOS Provider Status R002 PALPITATION 12-01-2016 [facility] MARSHALL, [facility] R079 CHEST PAIN 12-01-2016 [facility] E8770 FLUID 11-29-2016 [facility] OVERLOAD [facility] UNSPECIFIED INC Z0389 ENCOUNTER 11-16-2016 [facility] OT MEDICAL SUSPCT DZ & IMAGING ASS COND RULED OUT [id number] SPRAIN UNS 10-20-2016 [facility] LIGAMENT PHYSICIANS LEFT ANKLE GROUP INITIAL ENCOUNTER I10 ESSENTIAL 10-16-2016 [place] PRIMARY [facility] HYPERTENSIO INC N J069 ACUTE UPPER 10-16-2016 [facility] RESPIRATORY INC INFECTION UNSPECIFIED [id number] PRIMARY 10-10-2016 [facility] OSTEOARTHRI MEDICAL TIS LEFT IMAGING ASS ANKLE AND FOOT J51336 PAIN IN 10-10-2016 [place] RIGHT CHIROPRACTI SHOULDER C CENTE M5381 OTHER SPEC 10-10-2016 [place] DORSOPATHIE CHIROPRACTI S C CENTE OCCIPITO-AT HEATHER-AXIAL RGN M5386 OTHER 10-10-2016 [place] SPECIFIED CHIROPRACTI DORSOPATHIE C CENTE S LUMBAR REGION M5442 LUMBAGO 10-10-2016 [place] WITH CHIROPRACTI SCIATICA C CENTE LEFT SIDE M546 PAIN IN 10-10-2016 [place] THORACIC CHIROPRACTI SPINE C CENTE Q29178 PAIN IN 10-10-2016 [facility] LEFT FOOT MEDICAL IMAGING ASS M9906 SEGMENTAL & 10-10-2016 [place] SOMATIC CHIROPRACTI DYSFUNCTION C CENTE LOWER EXTREMITY J0101 ACUTE 07-28-2016 [facility] RECURRENT PHYSICIANS MAXILLARY GROUP SINUSITIS J040 ACUTE 07-28-2016 [facility] LARYNGITIS PHYSICIANS GROUP [id number] ACUTE 06-29-2016 [facility] SUPPURATIVE PHYSICIANS OM W/O GROUP RUPT EAR DRUM RT EAR R109 UNSPECIFIED 06-29-2016 [facility] ABDOMINAL PHYSICIANS PAIN GROUP J0100 ACUTE 06-05-2016 [facility] MAXILLARY PHYSICIANS SINUSITIS GROUP UNSPECIFIED J40 BRONCHITIS 05-25-2016 [facility] NOT PHYSICIANS SPECIFIED GROUP ACUTE OR CHRONIC J029 ACUTE 05-04-2016 [facility] PHARYNGITIS PHYSICIANS GROUP UNSPECIFIED Z1231 ENCOUNTER 05-01-2016 [facility] SCREENING MEDICAL MAMMO MALIG IMAGING ASS NEOPLASM BREAST N951 MENOPAUSAL 04-25-2016 [facility] AND FEMALE PHYSICIANS CLIMACTERIC GROUP STATES X28730 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[facility] PHOTOGRAPHERS' MODEL EXAM PHYSICIANS GENERAL RTN GROUP W/O ABNORMAL FIND Z1212 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[facility] SCREENING PHYSICIANS MALIGNANT GROUP NEOPLASM RECTUM J0390 ACUTE 04-13-2016 [facility] TONSILLITIS PHYSICIANS GROUP UNSPECIFIED M542 CERVICALGIA 03-30-2016 [place] CHIROPRACTI C CENTE K890FLH SPRAIN 03-30-2016 [place] LIGAMENTS CHIROPRACTI LUMBAR C CENTE SPINE INITIAL ENCOUNTER P95601M STRAIN 03-30-2016 [place] MUSCLE CHIROPRACTI FASCIA & C CENTE TENDON LOW BACK INITIAL M45282 PAIN IN 03-28-2016 [facility] LEFT HAND MEDICAL IMAGING ASS M7989 OTHER 03-28-2016 [facility] SPECIFIED MEDICAL SOFT TISSUE IMAGING ASS DISORDERS 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 M654 RADIAL 03-15-2016 [facility] STYLOID PHYSICIANS TENOSYNOVIT GROUP IS DE QUERVAIN E62858 GANGLION 03-15-2016 [facility] RIGHT WRIST PHYSICIANS GROUP H73049 GANGLION 03-15-2016 [facility] LEFT WRIST PHYSICIANS GROUP W71571 PAIN IN 03-07-2016 [facility] LEFT WRIST MEDICAL IMAGING ASS P19583 GANGLION 03-07-2016 [facility] RIGHT HAND PHYSICIANS GROUP G22185 GANGLION 03-07-2016 [facility] LEFT HAND PHYSICIANS GROUP P61333 PAIN IN 03-07-2016 [facility] RIGHT HAND MEDICAL IMAGING ASS M9903 SEGMENTAL & 01-21-2016 [place] SOMATIC CHIROPRACTI DYSFUNCTION C CENTE OF LUMBAR REGION M545 LOW BACK 01-11-2016 [place] PAIN CHIROPRACTI C CENTE K1120 SIALOADENIT 01-04-2016 [facility] IS [facility]YSICIANS, UNSPECIFIED PLLC K1121 ACUTE 01-04-2016 [place] [facility]ADENIT [facility] IS INC J329 CHRONIC 12-27-2015 [place] SINUSITIS [facility] J0140 ACUTE 11-22-2015 [facility] UNSPECIFIED GROUP H6980 OTHER SPEC 11-09-2015 [facility] DISORDERS PHYSICIANS EUSTACHIAN GROUP TUBE UNS EAR M13496 UNSPECIFIED 11-09-2015 [facility] ASTHMA PHYSICIANS UNCOMPLICAT GROUP ED R5383 OTHER 11-09-2015 [facility] FATIGUE PHYSICIANS GROUP Z840 FAMILY 11-09-2015 [facility] HISTORY PHYSICIANS DISEASES GROUP SKIN & SUBQ TISSUE Z0100 ENCOUNTER 11-04-2015 [place] EXAM EYES & GRE VISION W/O ABNORMAL FIND H6690 OTITIS 09-22-2015 [facility] MEDIA PHYSICIANS UNSPECIFIED GROUP UNSPECIFIED EAR D12013 OTHER ACUTE 09-12-2015 [facility] DOMINICK OM RECURRENT BILAT J0190 ACUTE 09-12-2015 [place] [facility] J209 ACUTE 09-12-2015 [place] BRONCHITIS [facility] D259 LEIOMYOMA 06-03-2015 [facility] OF UTERUS LLC UNSPECIFIED K660 PERITONEAL 06-03-2015 [place] ADHESIONS [facility] POSTPROC INC POSTINFECTI ON N736 FEMALE 06-03-2015 [facility] PELVIC PHYSICIANS PERITONEAL GROUP ADHESIONS POSTINFECTI VE N800 ENDOMETRIOS 06-03-2015 [facility] IS OF LLC UTERUS N831 CORPUS 06-03-2015 [facility] LUTEUM CYST LLC N8320 UNSPECIFIED 06-03-2015 [facility] OVARIAN PHYSICIANS CYSTS GROUP N856 INTRAUTERIN 06-03-2015 [facility] E SYNECHIAE LLC N938 OTHER SPEC 06-03-2015 [facility] ABNORMAL PHYSICIANS UTERINE & GROUP VAGINAL BLEEDING R102 PELVIC AND 06-03-2015 [place] PERINEAL [facility] PAIN INC B9689 OTH SPEC 05-24-2015 ROSIBEL Ceballos BACTERIAL JESSIE BOTELLO AGNT CAUSE DZ CLASSIFIED ELSW N760 ACUTE 05-24-2015 ROSIB[facility] Ceballos VAGINITIS JESSIE BOTELLO X72587 ENCOUNTER 05-24-2015 [place] FOR OTHER [facility] PREPROCEDUR INC AL EXAMINATION N852 HYPERTROPHY 05-10-2015 [facility] IM[facility] ASS N9489 OTH COND 05-04-2015 ROSIBEL Ceballos ASSOC W/FE JESSIE BOTELLO GEN ORGN & MENSTRUAL CYCL 4019 UNSPECIFIED 02-03-2015 [facility] N 34936 ASTHMA, 02-03-2015 [place] UNSPECIFIED [facility] UNSPECIFIED STATUS 5990 URINARY 02-03-2015 [place] [facility] IN[facility]OSPITAL SITE NOT SPECIFIED 49512 ABDOMINAL 01-05-2015 [facility] PAIN OTHER [facility] SPECIFIED INC SITE 66927 OTHER 11-03-2014 [facility] SPECIFIED MEDICAL DISORDER OF IMAGING ASS KIDNEY AND URETER 47584 ABDOMINAL 11-03-2014 [facility] PAIN RIGHT [facility] UPPER INC QUADRANT V1301 PERSONAL 11-03-2014 [facility] HISTORY OF [facility] URINARY INC CALCULI 462 ACUTE 10-07-2014 [place] PHARYNGITIS [facility] P 52092 ACUTE 10-07-2014 [place] LARYNGITIS, [facility] P MENTION OF OBSTRUCTIO 12369 UNSPECIFIED 09-14-2014 ROSIBEL Ceballos VAGINITIS JESSIE BOTELLO AND VULVOVAGINI TIS 6262 EXCESSIVE 09-14-2014 ROSIBEL [...] CLIMACTERIC STATES V7612 OTHER 06-16-2014 [facility] SCREENING [facility] MAMMOGRAM INC 401.9 401.9 12-11-2012 [facility] 493.90 493.90 12-11-2012 [facility] Allergies, Adverse Reactions, Alerts Type Drug Allergy Adverse Reaction to Substance Substance Reaction Severity Erythromycin Unknown Unknown Chlorpheniramine Unknown Unknown Ibuprofen Unknown Unknown Hydrocodone Unknown Unknown Medications Na ND Rx Da Fi Fi Am Da Di Ph RX Ph St me C No te ll ll ou ys ag ar # ys at s nt no ma ic us Or Da si cy ia de te s n re d FU 00 06 07 30 30 00 RI Ac RO 37 -1 -1 .0 00 TE ti SE 80 5- 4- 00 01 ve OR 21 20 20 18 AI DE 61 17 17 81 D 0 64 PH 40 AR MA MG CY TA #3 BL 93 ET 8 PO 00 06 07 30 30 00 RI Ac TA 78 -1 -1 .0 00 TE ti SS 15 5- 4- 00 01 ve IU 72 20 20 18 AI M 00 17 17 81 D CL 1 65 PH AR ER MA CY 20 #3 ME 93 Q 8 TA BL ET ES 00 06 07 8. 28 00 RI Ac TR 37 -1 -1 00 00 TE ti AD 84 5- 4- 0 01 ve IO 64 20 20 15 AI L 02 17 17 92 D 0. 6 37 PH 1 AR MG MA CY PA TC #3 H 93 8 CA 68 06 07 60 30 00 RI Ac RV 38 -2 -1 .0 00 TE ti ED 20 0- 4- 00 01 ve IL 09 20 20 18 AI OL 20 17 17 87 D 1 43 PH 3. AR 12 MA 5 CY MG #3 TA 93 BL 8 ET LI 68 06 07 30 30 00 RI Ac SI 18 -1 -1 .0 00 TE ti NO 00 9- 4- 00 01 ve FL 52 20 20 17 AI IL 00 17 17 85 D -H [address] AR Z MA 20 CY -2 5 #3 MG 93 8 TA B LI 68 05 06 30 30 00 RI Ac SI 18 -2 -1 .0 00 TE ti NO 00 3- 6- 00 01 ve FL 52 20 20 17 AI IL 00 17 17 85 D -H [address] AR Z MA 20 CY -2 5 #3 MG 93 8 TA B ES 00 05 06 8. 28 00 RI Ac TR 37 -1 -0 00 00 TE ti AD 84 6- 9- 0 01 ve IO 64 20 20 15 AI L 02 17 17 92 D 0. 6 37 PH 1 AR MG MA CY PA TC #3 H 93 8 LI 68 04 05 30 30 00 RI Ac SI 18 -2 -1 .0 00 TE ti NO 00 6- 9- 00 01 ve FL 52 20 20 17 AI IL 00 17 17 85 D -H [address] AR Z MA 20 CY -2 5 #3 MG 93 8 TA B ES 00 04 05 8. 28 00 [...] NO 00 2- 7- 00 01 ve FL 52 20 20 16 AI IL 00 [...] CY PA TC #3 H 93 8 FL 59 01 02 10 5 00 RI Ac ED 74 -2 -2 .0 00 TE ti NI 60 6- 4- 00 01 ve SO 17 20 20 16 AI NE 50 17 17 85 D 6 92 PH 20 AR MA MG CY TA #3 BL 93 ET 8 AM 66 01 02 20 10 00 RI Ac OX 68 -2 -2 .0 00 TE ti -C 51 6- 4- 00 01 ve LA 00 20 20 16 AI V 10 17 17 85 D 87 0 91 PH 5- AR 12 MA 5 CY MG #3 TA 93 BL 8 ET LI 68 01 02 30 30 00 RI Ac SI 18 -1 -1 .0 00 TE ti NO 00 5- 0- 00 01 ve FL 52 20 20 16 AI IL 00 [...] MG #3 93 TA 8 BL ET FL 00 12 01 20 10 00 RI Ac OM 60 -2 -2 0. 00 TE ti ET 31 2- 0- 00 01 ve RAMIRES 58 20 20 0 16 AI ZI 65 16 17 36 D NE 4 14 PH -D AR M MA SY CY RU P #3 93 8 FL 00 12 01 10 5 00 RI Ac ED 14 -2 -2 .0 00 TE ti NI 39 2- 0- 00 01 ve SO 73 20 20 16 AI NE 80 16 17 36 D 1 15 PH 20 AR MA MG CY TA #3 BL 93 ET 8 LI 68 12 01 30 30 00 RI Ac SI 18 -1 -1 .0 00 TE ti NO 00 5- 3- 00 01 ve FL 52 20 20 16 AI IL 00 16 17 26 D -H [address] AR Z MA 20 CY -2 5 #3 MG 93 8 TA B AM 00 12 01 20 10 00 RI Ac OX 78 -1 -1 .0 00 TE ti IC 12 9- 3- 00 01 ve IL 61 20 20 16 AI LI 30 16 17 31 D N 5 64 PH 50 AR 0 MA MG CY CA #3 PS 93 UL 8 E SO 00 07 0 No DI 40 [...] Order Detail nces retati t Range on Influenza virus A+B Ag [Presence] in Unspecified specimen (10-16-2016 19:40) Influen NOT NOT complet za 017 DETECTE DETECTD ed virus A 19:40 D Ag [Presen ce] in Unspeci fied specime n INFLUEN NOT NOT complet ZA B 017 DETECTE DETECTD ed ANTIGEN 19:40 D Streptococcus pyogenes Ag [Presence] in Unspecified specimen (10-16-2016 19:40) Strepto NOT NOTDETE complet coccus 017 DETECTE CTED ed pyogene 19:40 D s Ag [Presen ce] in Unspeci fied specime n STREP SCREEN (RAPID) (12-11-2012 04:31) STREP NEGATIV complet SCREEN 013 E ed (RAPID) 04:31 Procedures Procedure DOS Code Location Performer Comment ECG 78505 ALYSIA DEY ROUTINE 7 PHYSICIAN ECG S, PLLC W/LEAST 12 LDS I&R ONLY RADIOLOGI 88458 [facility] 7 MEDICAL EXAMINATI IMAGING ON CHEST ASS SINGLE VIEW FRONTAL ECHO 85032 [facility] ALVAREZ TTHRC R-T 7 [facility] 2D INC INC W/WOM-MOD E COMPL SPEC&COLR D ECG 52410 AN[facility]IO TREADWELL ROUTINE 7 [facility] W/LEAST P 12 LDS I&R ONLY ECG 18578 [facility] ALVAREZ ROUTINE 7 [facility] ECG INC INC W/LEAST 12 LDS TRCG ONLY W/O I&R RHYTHM 63071 [facility] STONE ECG 1-3 7 PHYSICIAN LEADS S GROUP W/INTERPR ETATION & REPORT BLOOD 70811 [facility]IO COUNT 7 [facility] COMPLETE INC INC AUTO&AUTO DIFRNTL WBC COLLECTIO 74779 [facility] STONE N VENOUS 7 PHYSICIAN BLOOD S GROUP VENIPUNCT URE COMPREHEN 40514 [facility] ALVAREZ SIVE 7 [facility] METABOLIC INC INC PANEL NATRIURET 07756 [facility]IO IC 7 [facility] PEPTIDE INC INC RADIOLOGI 33100 [facility] EXAM 7 MEDICAL CHEST 2 IMAGING VIEWS ASS FRONTAL&L ATERAL IAADIADOO 51741 [facility] ALVAREZ 7 [facility] INFLUENZA INC INC IAADIADOO 95869 [facility] ANTONIO 7 [facility] STREPTOCO INC INC CCUS GROUP A MANUAL 93065 [place] [facility] THERAPY 7 TQS 1/> CHIROPRAC REGIONS TIC CENTE EACH 15 MINUTES RADEX 18579 [facility] FOOT 7 MEDICAL COMPLETE IMAGING MINIMUM 3 ASS VIEWS CHIROPRAC 65668 [place] T[facility]ER TIC 7 MANIPLTV CHIROPRAC TX TIC CENTE EXTRASPIN AL 1/> [place] [address] [place] T[facility]ER 1/> AREAS 7 EACH 15 CHIROPRAC MIN TIC CENTE NEUROMUSC REEDUCA CHIROPRAC 29696 [place] T[facility] TIC 7 MANIPULAT CHIROPRAC DOMINICK TX TIC CENTE SPINAL 1-2 REGIONS THERAPEUT 41494 [facility] [place] IC 7 PHYSICIAN PROPHYLAC S GROUP TIC/DX INJECTION SUBQ/IM INJECTION J1100 [facility] 7 PHYSICIAN DEXAMETHO S GROUP SONE SODIUM PHOSPHATE 1 MG MANUAL 47026 EMMIE TUCKER THERAPY 7 TQS 1/> CHIROPRAC REGIONS TIC CENTE EACH 15 MINUTES CHIROPRAC 30180 EMMIE TUCKER TIC 7 MANIPULAT CHIROPRAC DOMINICK TX TIC CENTE SPINAL 1-2 REGIONS THERAPEUT 98499 [facility] STONE IC 7 PHYSICIAN PROPHYLAC S GROUP TIC/DX INJECTION SUBQ/IM URNLS DIP 37358 [facility] 7 PHYSICIAN PHYSICIAN STICK/TAB S GROUP S GROUP LET RGNT NON-AUTO W/O MICRSCP INJECTION J0696 [facility] STONE 7 PHYSICIAN CEFTRIAXO S GROUP NE SODIUM PER 250 MG INJECTION J0696 [facility] STONE 6 PHYSICIAN CEFTRIAXO S GROUP NE SODIUM PER 250 MG THERAPEUT 75489 [facility] ST[facility] IC 6 PHYSICIAN PROPHYLAC S GROUP TIC/DX INJECTION SUBQ/IM THERAPEUT 62789 [facility] FRYMAN IC 6 PHYSICIAN PROPHYLAC S GROUP TIC/DX INJECTION SUBQ/IM INJECTION J0696 [facility] FRYMAN 6 PHYSICIAN CEFTRIAXO S GROUP NE SODIUM PER 250 MG SCREENING G0202 [facility] JACOB 6 MEDICAL ARELY MAMMOGRAP IMAGING HY MICHELE ASS INCL CAD WHEN PERFORMD COMPUTER- 48298 [facility] AIDED 6 MEDICAL ARELY DETECTION IMAGING ASS SCREENING MAMMOGRAP HY URINLS 16130 [facility] HARPEL DIP 6 PHYSICIAN SHASTA STICK/TAB S GROUP LET REAGNT NON-AUTO MICRSCPY CULTURE 52138 [facility] HAR[facility] CHLAMYDIA 6 PHYSICIAN SHASTA ANY S GROUP SOURCE CYTP C/V 84240 BIO BIO AUTO THIN 6 REFERNCE REFERNCE LYR LABORATOR LABORATOR PREPJ SCR IES IES MNL RESCR PHYS IADNA 68586 BIO BIO TRICHOMON 6 REFERNCE REFERNCE LABORATOR LABORATOR VAGINALIS IES IES AMPLIFIED PROBE TECH IADNA 94235 BIO BIO CHLAMYDIA 6 REFERNCE REFERNCE LABORATOR LABORATOR TRACHOMAT IES IES IS AMPLIFIED PROBE TQ IADNA 25145 [facility] NEISSERIA 6 PHYSICIAN PHYSICIAN S GROUP S GROUP GONORRHOE AE DIRECT PROBE TQ IADNA 47804 BIO BIO NEISSERIA 6 REFERNCE REFERNCE LABORATOR LABORATOR GONORRHOE IES IES AE AMPLIFIED PROBE TQ IADNA NOS 63742 BIO BIO 6 REFERNCE REFERNCE AMPLIFIED LABORATOR LABORATOR PROBE TQ IES IES EACH ORGANISM INJECTION J0696 [facility] FRYMAN 6 PHYSICIAN EUG CEFTRIAXO S GROUP NE SODIUM PER 250 MG THERAPEUT 35344 [facility] FR[facility]MAN IC 6 PHYSICIAN EUG PROPHYLAC S GROUP TIC/DX INJECTION SUBQ/IM CHIROPRAC 55801 [place] CANTRELL TIC 6 AMA MANIPLTV CHIROPRAC TX TIC CENTE EXTRASPIN AL 1/> REGION CHIROPRAC 22107 [place] CANTRELL TIC 6 AMA MANIPULAT CHIROPRAC DOMINICK TX TIC CENTE SPINAL 3-4 REGIONS MANUAL 55162 [place] CANTRELL THERAPY 6 AMA TQS 1/> CHIROPRAC REGIONS TIC CENTE EACH 15 MINUTES MRI UPPER 12658 [facility] ALVAREZ 6 [facility] EXTREMITY INC INC OTH THAN JT W/O CONTR MATRL APPL 79015 [place] CANTRELL MODALITY 6 AMA 1/> AREAS CHIROPRAC TIC CENTE ULTRASOUN D EA 15 MIN APPL 88845 [place] CANTRELL MODALITY 6 AMA 1/> AREAS CHIROPRAC ELEC TIC CENTE STIMJ UNATTENDE D CHIROPRAC 76932 [place] CANTRELL TIC 6 AMA MANIPULAT CHIROPRAC DOMINICK TX TIC CENTE SPINAL 3-4 REGIONS MANUAL 08930 [place] CANTRELL THERAPY 6 AMA TQS 1/> CHIROPRAC REGIONS TIC CENTE EACH 15 MINUTES MANUAL 72492 [place] CANTRELL THERAPY 6 AMA TQS 1/> CHIROPRAC REGIONS TIC CENTE EACH 15 MINUTES CHIROPRAC 80105 [place] CANTRELL TIC 6 AMA MANIPULAT CHIROPRAC DOMINICK TX TIC CENTE SPINAL 3-4 REGIONS APPL 83848 [place] CANTRELL MODALITY 6 AMA 1/> AREAS CHIROPRAC ELEC TIC CENTE STIMJ UNATTENDE D THERAPEUT 39190 [facility] IC 6 PHYSICIAN PHYSICIAN PROPHYLAC S GROUP S GROUP TIC/DX INJECTION SUBQ/IM APPL 81049 [place] CANTRELL MODALITY 6 AMA 1/> AREAS CHIROPRAC TIC CENTE ULTRASOUN D EA 15 MIN RADEX 28334 LAURENT MAZARIEGOS ALL WRIST 2 6 MEDICAL VIEWS IMAGING ASS RADEX 01653 [facility]IO ALVAREZ HAND 2 6 [facility] VIEWS INC INC APPL 82725 [place] CANTRELL MODALITY 6 AMA 1/> AREAS CHIROPRAC TIC CENTE ULTRASOUN D EA 15 MIN APPL 19311 [place] CANTRELL MODALITY 6 AMA 1/> AREAS CHIROPRAC ELEC TIC CENTE STIMJ UNATTENDE D MANUAL 69759 [place] CANTRELL THERAPY 6 AMA TQS 1/> CHIROPRAC REGIONS TIC CENTE EACH 15 MINUTES CHIROPRAC 09344 [place] CANTRELL TIC 6 AMA MANIPULAT CHIROPRAC DOMINICK TX TIC CENTE SPINAL 3-4 REGIONS CHIROPRAC 76312 [place] CANTRELL TIC 6 AMA MANIPULAT CHIROPRAC DOMINICK TX TIC CENTE SPINAL 3-4 REGIONS MANUAL 91572 [place] CANTRELL THERAPY 6 AMA TQS 1/> CHIROPRAC REGIONS TIC CENTE EACH 15 MINUTES APPL 18679 [place] CANTRELL MODALITY 6 AMA 1/> AREAS CHIROPRAC TIC CENTE ULTRASOUN D EA 15 MIN APPL 58680 [place] CANTRELL MODALITY 6 AMA 1/> AREAS CHIROPRAC ELEC TIC CENTE STIMJ UNATTENDE D APPL 78713 [place] CANTRELL MODALITY 6 AMA 1/> AREAS CHIROPRAC TIC CENTE ULTRASOUN D EA 15 MIN APPL 21534 [place] CANTRELL MODALITY 6 AMA 1/> AREAS CHIROPRAC ELEC TIC CENTE STIMJ UNATTENDE D MANUAL 09250 [place] CANTRELL THERAPY 6 AMA TQS 1/> CHIROPRAC REGIONS TIC CENTE EACH 15 MINUTES CHIROPRAC 00473 [place] CANTRELL TIC 6 AMA MANIPULAT CHIROPRAC DOMINICK TX TIC CENTE SPINAL 3-4 REGIONS CHIROPRAC 08587 [place] CANTRELL TIC 6 AMA MANIPULAT CHIROPRAC DOMINICK TX TIC CENTE SPINAL 3-4 REGIONS MANUAL 80467 [place] CANTRELL THERAPY 6 AMA TQS 1/> CHIROPRAC REGIONS TIC CENTE EACH 15 MINUTES APPL 06017 [place] CANTRELL MODALITY 6 AMA 1/> AREAS CHIROPRAC ELEC TIC CENTE STIMJ UNATTENDE D APPL 15197 [place] CANTRELL MODALITY 6 AMA 1/> AREAS CHIROPRAC TIC CENTE ULTRASOUN D EA 15 MIN APPL 08357 [place] CANTRELL MODALITY 6 AMA 1/> AREAS CHIROPRAC TIC CENTE ULTRASOUN D EA 15 MIN CHIROPRAC 48231 [place] CANTRELL TIC 6 AMA MANIPLTV CHIROPRAC TX TIC CENTE EXTRASPIN AL 1/> REGION APPL 65951 [place] CANTRELL MODALITY 6 AMA 1/> AREAS CHIROPRAC ELEC TIC CENTE STIMJ UNATTENDE D THERAPEUT 50188 [place] CANTRELL IC PX 1/> 6 AMA AREAS CHIROPRAC EACH 15 TIC CENTE MIN EXERCISES MANUAL 40872 [place] CANTRELL THERAPY 6 AMA TQS 1/> CHIROPRAC REGIONS TIC CENTE EACH 15 MINUTES CHIROPRAC 98699 [place] CANTRELL TIC 6 AMA MANIPULAT CHIROPRAC DOMINICK TX TIC CENTE SPINAL 3-4 REGIONS MANUAL 20978 [place] THERAPY 6 AMA TQS 1/> CHIROPRAC REGIONS TIC CENTE EACH 15 MINUTES CHIROPRAC 15159 [place] TIC 6 AMA MANIPULAT CHIROPRAC DOMINICK TX TIC CENTE SPINAL 3-4 REGIONS APPL 67650 [place] MODALITY 6 AMA 1/> AREAS CHIROPRAC TRACTION TIC CENTE MECHANICA L APPL 50529 [place] MODALITY 6 AMA 1/> AREAS CHIROPRAC ELEC TIC CENTE STIMJ UNATTENDE D CHIROPRAC 49440 [place] TIC 6 AMA MANIPLTV CHIROPRAC TX TIC CENTE EXTRASPIN AL 1/> REGION APPL 04351 [place] MODALITY 6 AMA 1/> AREAS CHIROPRAC TIC CENTE ULTRASOUN D EA 15 MIN APPL 02867 [place] MODALITY 6 AMA 1/> AREAS CHIROPRAC TIC CENTE ULTRASOUN D EA 15 MIN CHIROPRAC 11378 [place] TIC 6 AMA MANIPLTV CHIROPRAC TX TIC CENTE EXTRASPIN AL 1/> REGION APPL 06227 [place] MODALITY 6 AMA 1/> AREAS CHIROPRAC ELEC TIC CENTE STIMJ UNATTENDE D APPL 91725 [place] MODALITY 6 AMA 1/> AREAS CHIROPRAC TRACTION TIC CENTE MECHANICA L MANUAL 79896 [place] THERAPY 6 AMA TQS 1/> CHIROPRAC REGIONS TIC CENTE EACH 15 MINUTES CHIROPRAC 24601 [place] TIC 6 AMA MANIPULAT CHIROPRAC DOMINICK TX TIC CENTE SPINAL 3-4 REGIONS CHIROPRAC 98262 [place] TIC 6 AMA MANIPULAT CHIROPRAC DOMINICK TX TIC CENTE SPINAL 3-4 REGIONS MANUAL 93561 [place] THERAPY 6 AMA TQS 1/> CHIROPRAC REGIONS TIC CENTE EACH 15 MINUTES APPL 26769 [place] MODALITY 6 AMA 1/> AREAS CHIROPRAC TRACTION TIC CENTE MECHANICA L APPL 81370 [place] MODALITY 6 AMA 1/> AREAS CHIROPRAC ELEC TIC CENTE STIMJ UNATTENDE D CHIROPRAC 12720 [place] TIC 6 AMA MANIPLTV CHIROPRAC TX TIC CENTE EXTRASPIN AL 1/> REGION APPL 24467 [place] MODALITY 6 AMA 1/> AREAS CHIROPRAC TIC CENTE ULTRASOUN D EA 15 MIN APPL 70628 [place] MODALITY 6 AMA 1/> AREAS CHIROPRAC TIC CENTE ULTRASOUN D EA 15 MIN CHIROPRAC 70494 [place] TIC 6 AMA MANIPLTV CHIROPRAC TX TIC CENTE EXTRASPIN AL 1/> REGION APPL 99562 [place] MODALITY 6 AMA 1/> AREAS CHIROPRAC TRACTION TIC CENTE MECHANICA L APPL 70141 [place] MODALITY 6 AMA 1/> AREAS CHIROPRAC ELEC TIC CENTE STIMJ UNATTENDE D MANUAL 12906 [place] THERAPY 6 AMA TQS 1/> CHIROPRAC REGIONS TIC CENTE EACH 15 MINUTES CHIROPRAC 59093 [place] TIC 6 AMA MANIPULAT CHIROPRAC DOMINICK TX TIC CENTE SPINAL 3-4 REGIONS CHIROPRAC 99095 [place] TIC 6 AMA MANIPULAT CHIROPRAC DOMINICK TX TIC CENTE SPINAL 3-4 REGIONS MANUAL 69407 [place] THERAPY 6 AMA TQS 1/> CHIROPRAC REGIONS TIC CENTE EACH 15 MINUTES APPL 69397 [place] MODALITY 6 AMA 1/> AREAS CHIROPRAC TIC CENTE ULTRASOUN D EA 15 MIN APPL 96456 [place] MODALITY 6 AMA 1/> AREAS CHIROPRAC TRACTION TIC CENTE MECHANICA L RADEX 76289 [place] SPINE 6 AMA LUMBOSACR CHIROPRAC AL 2/3 TIC CENTE VIEWS APPL 43615 [place] MODALITY 6 AMA 1/> AREAS CHIROPRAC ELEC TIC CENTE STIMJ UNATTENDE D CHIROPRAC 93630 [place] TIC 6 AMA MANIPLTV CHIROPRAC TX TIC CENTE EXTRASPIN AL 1/> REGION CHIROPRAC 99140 [place] C[place] TIC 6 AMA MANIPLTV CHIROPRAC TX TIC CENTE EXTRASPIN AL 1/> REGION APPL 31684 [place] MODALITY 6 AMA 1/> AREAS CHIROPRAC TIC CENTE ULTRASOUN D EA 15 MIN APPL 41987 [place] CANT[place] MODALITY 6 AMA 1/> AREAS CHIROPRAC ELEC TIC CENTE STIMJ UNATTENDE D APPL 56052 [place] MODALITY 6 AMA 1/> AREAS CHIROPRAC TRACTION TIC CENTE MECHANICA L MANUAL 21285 [place] THERAPY 6 AMA TQS 1/> CHIROPRAC REGIONS TIC CENTE EACH 15 MINUTES CHIROPRAC 90671 [place] TIC 6 AMA MANIPULAT CHIROPRAC DOMINICK TX TIC CENTE SPINAL 3-4 REGIONS CHIROPRAC 11148 [place] C[place] TIC 6 AMA MANIPULAT CHIROPRAC DOMINICK TX TIC CENTE SPINAL 3-4 REGIONS MANUAL 49540 [place] THERAPY 6 AMA TQS 1/> CHIROPRAC REGIONS TIC CENTE EACH 15 MINUTES APPL 79629 [place] CANT[place] MODALITY 6 AMA 1/> AREAS CHIROPRAC TRACTION TIC CENTE MECHANICA L APPL 99257 [place] CANT[place] MODALITY 6 AMA 1/> AREAS CHIROPRAC ELEC TIC CENTE STIMJ UNATTENDE D APPL 30381 [place] CANT[place] MODALITY 6 AMA 1/> AREAS CHIROPRAC TIC CENTE ULTRASOUN D EA 15 MIN CHIROPRAC 70608 [place] CANT[place] TIC 6 AMA MANIPLTV CHIROPRAC TX TIC CENTE EXTRASPIN AL 1/> REGION CHIROPRAC 46402 [place] CANT[place] TIC 6 AMA MANIPLTV CHIROPRAC TX TIC CENTE EXTRASPIN AL 1/> REGION APPL 77258 [place] CANT[place] MODALITY 6 AMA 1/> AREAS CHIROPRAC ELEC TIC CENTE STIMJ UNATTENDE D APPL 63512 [place] CANT[place] MODALITY 6 AMA 1/> AREAS CHIROPRAC TRACTION TIC CENTE MECHANICA L MANUAL 76351 [place] CANT[place] THERAPY 6 AMA TQS 1/> CHIROPRAC REGIONS TIC CENTE EACH 15 MINUTES CHIROPRAC 94964 [place] CANT[place] TIC 6 AMA MANIPULAT CHIROPRAC DOMINICK TX TIC CENTE SPINAL 3-4 REGIONS CHIROPRAC 22664 [place] CANT[place] TIC 6 AMA MANIPULAT CHIROPRAC DOMINICK TX TIC CENTE SPINAL 3-4 REGIONS MANUAL 27576 [place] CANT[place] THERAPY 6 AMA TQS 1/> CHIROPRAC REGIONS TIC CENTE EACH 15 MINUTES APPL 96854 [place] CANT[place] MODALITY 6 AMA 1/> AREAS CHIROPRAC TRACTION TIC CENTE MECHANICA L CHIROPRAC 49753 [place] C[place] TIC 6 AMA MANIPLTV CHIROPRAC TX TIC CENTE EXTRASPIN AL 1/> REGION CHIROPRAC 83780 [place] C[place] TIC 6 AMA MANIPLTV CHIROPRAC TX TIC CENTE EXTRASPIN AL 1/> REGION APPL 80724 [place] CANT[place] MODALITY 6 AMA 1/> AREAS CHIROPRAC TIC CENTE ULTRASOUN D EA 15 MIN THERAPEUT 93164 [place] CANT[place] IC PX 1/> 6 AMA AREAS CHIROPRAC EACH 15 TIC CENTE MIN EXERCISES APPL 28727 [place] MODALITY 6 1/> AREAS CHIROPRAC CHIROPRAC TRACTION TIC CENTE TIC CENTE MECHANICA L APPL 70803 [place] CANT[place] MODALITY 6 AMA 1/> AREAS CHIROPRAC ELEC TIC CENTE STIMJ UNATTENDE D MANUAL 10740 [place] CANT[place] THERAPY 6 AMA TQS 1/> CHIROPRAC REGIONS TIC CENTE EACH 15 MINUTES CHIROPRAC 21977 [place] CANT[place] TIC 6 AMA MANIPULAT CHIROPRAC DOMINICK TX TIC CENTE SPINAL 3-4 REGIONS CHIROPRAC 75351 [place] CANT[place] TIC 6 AMA MANIPULAT CHIROPRAC DOMINICK TX TIC CENTE SPINAL 3-4 REGIONS MANUAL 75104 [place] CANTRE[place] THERAPY 6 AMA TQS 1/> CHIROPRAC REGIONS TIC CENTE EACH 15 MINUTES APPL 10110 [place] MODALITY 6 1/> AREAS CHIROPRAC CHIROPRAC ELEC TIC CENTE TIC CENTE STIMJ UNATTENDE D APPL 74545 [place] CANT[place] MODALITY 6 AMA 1/> AREAS CHIROPRAC TRACTION TIC CENTE MECHANICA L APPL 39838 [place] CANT[place] MODALITY 6 AMA 1/> AREAS CHIROPRAC TIC CENTE ULTRASOUN D EA 15 MIN CHIROPRAC 37438 [place] CANT[place] TIC 6 AMA MANIPLTV CHIROPRAC TX TIC CENTE EXTRASPIN AL 1/> REGION CHIROPRAC 12256 [place] CANT[place] TIC 6 AMA MANIPLTV CHIROPRAC TX TIC CENTE EXTRASPIN AL 1/> REGION APPL 78362 [place] CANT[place]LL MODALITY 6 AMA 1/> AREAS CHIROPRAC TIC CENTE ULTRASOUN D EA 15 MIN APPL 50384 [place] MODALITY 6 1/> AREAS CHIROPRAC CHIROPRAC TRACTION TIC CENTE TIC CENTE MECHANICA L APPL 47937 [place] CANT[place] MODALITY 6 AMA 1/> AREAS CHIROPRAC ELEC TIC CENTE STIMJ UNATTENDE D MANUAL 22039 [place] CANT[place] THERAPY 6 AMA TQS 1/> CHIROPRAC REGIONS TIC CENTE EACH 15 MINUTES CHIROPRAC 58794 [place] CANT[place] TIC 6 AMA MANIPULAT CHIROPRAC DOMINICK TX TIC CENTE SPINAL 3-4 REGIONS CHIROPRAC 24590 [place] CANT[place] TIC 6 AMA MANIPULAT CHIROPRAC DOMINICK TX TIC CENTE SPINAL 3-4 REGIONS MANUAL 01409 [place] CANTRE[place] THERAPY 6 AMA TQS 1/> CHIROPRAC REGIONS TIC CENTE EACH 15 MINUTES APPL 26038 [place] CANT[place] MODALITY 6 AMA 1/> AREAS CHIROPRAC ELEC TIC CENTE STIMJ UNATTENDE D APPL 29205 [place] CANT[place] MODALITY 6 AMA 1/> AREAS CHIROPRAC TRACTION TIC CENTE MECHANICA L APPL 54979 CY[place] MODALITY 6 1/> AREAS CHIROPRAC CHIROPRAC TIC CENTE TIC CENTE ULTRASOUN D EA 15 MIN CHIROPRAC 06822 EMMIE RENEE PRA TIC 6 MANIPLTV CHIROPRAC TX TIC CENTE EXTRASPIN AL 1/> REGION CHIROPRAC 78303 [place] CANT[place] TIC 6 AMA MANIPLTV CHIROPRAC TX TIC CENTE EXTRASPIN AL 1/> REGION APPL 67116 [place] CANT[place] MODALITY 6 AMA 1/> AREAS CHIROPRAC ELEC TIC CENTE STIMJ UNATTENDE D APPL 43397 [place] MODALITY 6 1/> AREAS CHIROPRAC CHIROPRAC TRACTION TIC CENTE TIC CENTE MECHANICA L MANUAL 55361 [place] CANTRELL THERAPY 6 AMA TQS 1/> CHIROPRAC REGIONS TIC CENTE EACH 15 MINUTES CHIROPRAC 04099 [place] CANT[place] TIC 6 AMA MANIPULAT CHIROPRAC DOMINICK TX TIC CENTE SPINAL 3-4 REGIONS MANUAL 34491 [place] CANT[place]LL THERAPY 6 AMA TQS 1/> CHIROPRAC REGIONS TIC CENTE EACH 15 MINUTES CHIROPRAC 03291 [place] CANT[place] TIC 6 AMA MANIPULAT CHIROPRAC DOMINICK TX TIC CENTE SPINAL 3-4 REGIONS APPL 89920 CY[place] MODALITY 6 1/> AREAS CHIROPRAC CHIROPRAC TRACTION TIC CENTE TIC CENTE MECHANICA L CHIROPRAC 24956 [place] CANT[place] TIC 6 AMA MANIPLTV CHIROPRAC TX TIC CENTE EXTRASPIN AL 1/> REGION APPL 17120 [place] CANT[place] MODALITY 6 AMA 1/> AREAS CHIROPRAC ELEC TIC CENTE STIMJ UNATTENDE D CHIROPRAC 91723 [place] CANT[place] TIC 6 AMA MANIPLTV CHIROPRAC TX TIC CENTE EXTRASPIN AL 1/> REGION APPL 00963 [place] CANT[place] MODALITY 6 AMA 1/> AREAS CHIROPRAC TRACTION TIC CENTE MECHANICA L APPL 40654 [place] CANT[place] MODALITY 6 AMA 1/> AREAS CHIROPRAC ELEC TIC CENTE STIMJ UNATTENDE D CHIROPRAC 96617 [place] CANT[place] TIC 6 AMA MANIPULAT CHIROPRAC DOMINICK TX TIC CENTE SPINAL 3-4 REGIONS MANUAL 18631 [place] CANTRE[place] THERAPY 6 AMA TQS 1/> CHIROPRAC REGIONS TIC CENTE EACH 15 MINUTES MANUAL 77839 [place] CANTRE[place] THERAPY 6 AMA TQS 1/> CHIROPRAC REGIONS TIC CENTE EACH 15 MINUTES CHIROPRAC 89311 [place] C[place] TIC 6 AMA MANIPULAT CHIROPRAC DOMINIKC TX TIC CENTE SPINAL 3-4 REGIONS APPL 95796 [place] CANT[place] MODALITY 6 AMA 1/> AREAS CHIROPRAC ELEC TIC CENTE STIMJ UNATTENDE D APPL 82842 [place] CANT[place] MODALITY 6 AMA 1/> AREAS CHIROPR[place] [address] [place] CANT[place]LL 1/> AREAS 6 AMA EACH 15 CHIROPRAC MIN TIC CENTE NEUROMUSC REEDUCA CHIROPRAC 30404 [place] CANT[place] TIC 6 AMA MANIPLTV CHIROPRAC TX TIC CENTE EXTRASPIN AL 1/> REGION CHIROPRAC 97587 [place] CANT[place] TIC 6 AMA MANIPLTV CHIROPRAC TX TIC CENTE EXTRASPIN AL 1/> [place] [address] [place] CANTRELL 1/> AREAS 6 AMA EACH 15 CHIROPRAC MIN TIC CENTE NEUROMUSC REEDUCA APPL 17132 [place] CANT[place] MODALITY 6 AMA 1/> AREAS CHIROPRAC TRACTION TIC CENTE MECHANICA L APPL 06164 [place] CANT[place] MODALITY 6 AMA 1/> AREAS CHIROPRAC ELEC TIC CENTE STIMJ UNATTENDE D CHIROPRAC 89430 [place] CANT[place] TIC 6 AMA MANIPULAT CHIROPRAC DOMINICK TX TIC CENTE SPINAL 3-4 REGIONS MANUAL 92196 JOSÉJAREDTYSHAWN CANTRELL THERAPY 6 AMA TQS 1/> CHIROPRAC REGIONS TIC CENTE EACH 15 MINUTES IAADIADOO 20814 GNOSTICISM SHANIKA 6 [facility] [address] [facility] [place] [address] ANTONIO ALVAREZ THYROXINE 6 [facility] TOTAL INC INC ANTINUCLE 46295 ANTONIO ALVAREZ AR 6 [facility] ANTIBODIE INC INC S TYSHAWN DNA 12704 ANTONIO ALVAREZ ANTIBODY 6 [facility] INC UBLE STRANDED 25 10964 ANTONIO ALVAREZ HYDROXY 6 [facility] INCLUDES INC INC FRACTIONS IF PERFORMED CREATINE 66912 ANTONIO ALVAREZ KINASE 6 [facility] TOTAL INC INC COLLECTIO 90026 [facility] N VENOUS 6 PHYSICIAN STONE BLOOD S GROUP PA-C CORBIN VENIPUNCT URE COMPREHEN 41485 ANTONIO ALVAREZ SIVE 6 [facility] METABOLIC INC INC PANEL C-REACTIV 88534 ANTONIO ALVAREZ E PROTEIN 6 [place] [address] ANTONIO ALVAREZ THYROID 6 [facility] STIMULATI INC INC NG HORMONE TSH SEDIMENTA 94102 ANTONIO ALVAREZ TION RATE 6 [facility] RBC INC INC NON-AUTOM ATED BLOOD 58733 ANTONIO ALVAREZ COUNT 6 [facility] COMPLETE INC INC AUTO&AUTO DIFRNTL WBC OPHTH 04007 [facility] 6 GRE GRE XM&EVAL COMPRE NEW PT 1/> VST INJECTION J1040 [facility] JEFFRY 6 PHYSICIAN HUGH METHYLPRE S GROUP DNISOLONE ACETATE 80 MG INJECTION J0696 [facility] JEFFRY 6 PHYSICIAN HUGH CEFTRIAXO S GROUP NE SODIUM PER 250 MG THERAPEUT 52018 [facility] JEFFRY IC 6 PHYSICIAN HUGH PROPHYLAC S GROUP TIC/DX INJECTION SUBQ/IM THERAPEUT 62742 [facility] JEFFRY IC 6 PHYSICIAN HGUH PROPHYLAC S GROUP TIC/DX INJECTION SUBQ/IM INJECTION J0696 [facility] JEFFRY 6 PHYSICIAN HUGH CEFTRIAXO S GROUP NE SODIUM PER 250 MG INJECTION J1040 [facility] 6 PHYSICIAN HUGH METHYLPRE S GROUP DNISOLONE ACETATE 80 MG INJECTION J0561 [address] [place] 755521 UNITS INJECTION J[address] [facility] SODI[facility] PHOSPHATE 1 MG THERAPEUT 87786 [facility] IC 6 [facility] TIC/DX INJECTION SUBQ/IM TOTAL 56985 [facility] SCHULSTAD ABDOMINAL 5 PHYSICIAN CAM S GROUP HYSTERECT W/[place] [address] [facility], PICKLESIM SURG 5 [facility] PATHOLOGY GROSS&HUGH ROSCOPIC EXAM ANESTHESI 88978 PENDING SALE TO [facility] A 5 ANESTH INTRAPERI OF THE TONEAL BLUE LOWER ABD W/LAPS NOS SUSCEPTIB 66750 ANTONIO ALVAREZ LTY STDY 5 [facility] ANTIMICRB INC INC IAL MICRO/AGA R DILUTJ SMR PRIM 17226 ROSIBEL ROMAN SRC WET 5 JESSIE BOTELLO [facility] NFCT AGT CULTURE 78158 ANTONIO ALVAREZ BACTERIAL 5 [facility] INC INC QUANTTATI VE COLONY COUNT URINE COLLECTIO 28142 ANTONIO ALVAREZ N VENOUS 5 [facility] BLOOD INC INC VENIPUNCT URE BLOOD 80807 ANTONIO ALVAREZ COUNT 5 [facility] COMPLETE INC INC AUTO&AUTO DIFRNTL WBC URNLS DIP 69760 ANTONIO ALVAREZ 5 [facility] STICK/TAB INC INC LET REAGENT AUTO MICROSCOP Y GONADOTRO 74262 ANTONIO ALVAREZ PIN 5 [facility] [place] [address] [facility] TRANSVAGI 5 MEDICAL ARELY NAL IMAGING ASS URINLS 25303 ROSIBEL ROMAN DIP 5 JESSIE VEGAS STICK/TAB LET REAGNT NON-AUTO MICRSCPY CHIROPRAC 58091 EMMIE SALEEM TIC 5 GAR MANIPLTV CHIROPRAC TX TIC CENTE EXTRASPIN AL 1/> [place] [address] EMMIE SALEEM 1/> AREAS 5 GAR EACH 15 CHIROPRAC MIN TIC CENTE NEUROMUSC REEDUCA CHIROPRAC 22074 EMMIE SALEEM TIC 5 GAR MANIPULAT CHIROPRAC DOMINICK TX TIC CENTE SPINAL 1-2 REGIONS APPL 57963 EMMIE SALEEM MODALITY 5 GAR 1/> AREAS CHIROPRAC TRACTION TIC CENTE MECHANICA L CHIROPRAC 43539 EMMIE SALEEM TIC 5 GAR MANIPULAT CHIROPRAC DOMINICK TX TIC CENTE SPINAL 1-2 [place] [address] EMMIE HARPER 1/> AREAS 5 GAR EACH 15 CHIROPRAC MIN TIC CENTE NEUROMUSC REEDUCA CHIROPRAC 59975 EMMIE SALEEM TIC 5 GAR MANIPLTV CHIROPRAC TX TIC CENTE EXTRASPIN AL 1/> [place] [address] EMMIE HARPER 1/> AREAS 5 GAR EACH 15 [place] [address] EMMIE HARPER 1/> AREAS 5 GAR EACH 15 [place]IROP[place] [address] EMMIE HARPER 1/> AREAS 5 GAR EACH 15 CHIROPRAC MIN TIC CENTE NEUROMUSC REEDUCA CHIROPRAC 21315 EMMIE SALEEM TIC 5 GAR MANIPULAT CHIROPRAC DOMINICK TX TIC CENTE SPINAL 1-2 REGIONS URNLS DIP 53505 ANTONIO BELTRAN 5 [facility] LET RGNT NON-AUTO W/O MICRSCP COMPREHEN 97768 ANTONIO ALVAREZ SIVE 5 [facility] METABOLIC INC INC PANEL COLLECTIO 82056 ANTONIO ALVAREZ N VENOUS 5 [facility] BLOOD INC INC VENIPUNCT URE URNLS DIP 04928 ANTONIO ALVAREZ 5 [facility] STICK/TAB INC INC LET REAGENT AUTO MICROSCOP Y BLOOD 42124 ANTONIO ALVAREZ COUNT 5 [facility] COMPLETE INC INC AUTO&AUTO DIFRNTL WBC URNLS DIP 08335 ANTONIO ALVAREZ 5 [facility] STICK/TAB INC [place] [address] ANTONIO ALVAREZ ABDOMEN & 5 [facility] PELVIS INC INC W/O CONTRAST MATERIAL COMPREHEN 19689 ANTONIO ALVAREZ SIVE 5 [facility] METABOLIC INC INC PANEL BLOOD 32820 ANTONIO ALVAREZ COUNT 5 [facility] COMPLETE INC INC AUTO&AUTO DIFRNTL WBC BLOOD 06950 ANTONIO ALVAREZ COUNT 5 [facility] COMPLETE INC INC AUTO&AUTO DIFRNTL WBC UNCLASSIF J3490 ANTONIO ALVAREZ IED DRUGS 5 [facility] INC INC COMPREHEN 38299 ANTONIO ALVAREZ SIVE 5 [facility] METABOLIC INC INC PANEL IMMUNOASS 65975 ANTONIO ALVAREZ AY NFCT 5 [facility] AGT ANTB INC INC QUAL/SEMI ANGIE 1 [place] [address] ANTONIO ANTONIO INFUSION 5 [facility] THERAPY/P INC INC ROPHYLAXI S /DX 1ST TO 1 HR HGB 23624 ROSIBEL ROMAN QUANTITAT 5 JESSIE VEGAS DOMINICK TRANSCUTA NEOUS SMR PRIM 49159 ROSIBEL ROMAN SRC WET 5 JESSIE BOTELLO [facility] NFCT AGT UNCLASSIF J3490 ANTONIO ANTONIO IED DRUGS 5 [facility] INC INC ANESTHESI 81146 [facility] A VAGINAL 5 ANESTH LUCERO OF THE PROCEDURE BLUE W/BIOPSY NOS INJECTION J2405 ANTONIO ALVAREZ 5 [facility] ONDANSETR INC INC ON HCL [place] 1 [place] [address] [facility], [facility]C LABS, SURG 5 [facility] PATHOLOGY GROSS&HUGH ROSCOPIC EXAM BLOOD 60302 ANTONIO ALVAREZ COUNT 5 [facility] HEMATOCRI INC INC T BLOOD 81155 ANTONIO ANTONIO COUNT 5 [facility] [place] [address] ANTONIO ANTONIO INFUSION 5 [facility] THERAPY INC INC PROPHYLAX IS/DX EA HOUR DILATION 59647 ROSIBEL ROMAN & 5 JESSIE VEGAS CURETTAGE DX&/THER NONOBSTET JACQUI COLLECTIO 17600 ANTONIO ALVAREZ N VENOUS 5 [facility] BLOOD INC INC VENIPUNCT URE COLLECTIO 33313 ANTONIO ALVAREZ N VENOUS 5 [facility] BLOOD INC INC VENIPUNCT URE URINE 02686 ANTONIO ALVAREZ 5 [facility] TEST INC INC VISUAL COLOR CMPRSN METHS BLOOD 99157 ANTONIO ALVAREZ COUNT 5 [facility] COMPLETE INC INC AUTO&AUTO DIFRNTL WBC URNLS DIP 61493 ANTONIO ALVAREZ 5 [facility] STICK/TAB INC INC LET REAGENT AUTO MICROSCOP Y CULTURE 74231 ANTONIO ALVAREZ BACTERIAL 5 [facility] INC INC QUANTTATI VE COLONY COUNT URINE BLOOD 24656 ANTONIO ALVAREZ COUNT 5 [facility] COMPLETE INC INC AUTO&[place] [address] ANTONIO ALVAREZ TRANSVAGI 5 [facility] NAL INC INC COLLECTIO 31377 ANTONIO ALVAREZ N VENOUS 5 [facility] BLOOD INC INC VENIPUNCT URE SCREENING G0202 ANTONIO ALVAREZ 5 [facility] MAMMOGRAP INC INC HY MICHELE INCL CAD WHEN PERFORMD 72907 ANTONIO ALVAREZ AIDED 5 [facility] DETECTION INC INC SCREENING MAMMOGRAP HY Encounters Encounter Start End Date Code Location Performer Type Date EMERGENCY 85743 [place] DEY DEPT 7 7 PHYSICIAN VISIT S, PLLC HIGH SEVERITY& THREAT [facility] ANTONIO - 7 7 [facility] OUTPATIEN INC T OFFICE 70868 [facility] STONE OUTPATIEN 7 7 PHYSICIAN T VISIT S GROUP 15 MINUTES OFFICE 65310 [facility] OUTPATIEN 7 7 PHYSICIAN T VISIT S GROUP 25 MINUTES [facility] ANTONIO - 7 7 [facility] OUTPATIEN INC T OFFICE 95181 [facility] OUTPATIEN 7 7 PHYSICIAN T VISIT S GROUP 15 MINUTES [facility] ANTONIO - 7 7 [facility] OUTPATIEN INC T OFFICE 87674 ANTONIO OUTPATIEN 7 7 [facility] T VISIT 5 INC MINUTES OFFICE 46535 [facility] [place] OUTPATIEN 7 7 PHYSICIAN T VISIT S GROUP 25 MINUTES OFFICE 84039 [facility] OUTPATIEN 7 7 PHYSICIAN T VISIT S GROUP 25 MINUTES OFFICE 87544 [facility] OUTPATIEN 7 7 PHYSICIAN T VISIT S GROUP 25 MINUTES OFFICE 21728 [facility] OUTPATIEN 6 6 PHYSICIAN T VISIT S GROUP 15 MINUTES OFFICE 33440 [facility] [place] OUTPATIEN 6 6 PHYSICIAN T VISIT S GROUP 15 MINUTES OFFICE 38412 [facility] [place] OUTPATIEN 6 6 PHYSICIAN T VISIT S GROUP 25 MINUTES [facility]OSPITAL ANTONIO - 6 6 [facility] OUTPATIEN INC T PERIODIC 10149 [facility] PREVENTIV 6 6 PHYSICIAN SHASTA E MED EST S GROUP PATIENT 40-64YRS OFFICE 15375 [facility] [place] OUTPATIEN 6 6 PHYSICIAN EUG T VISIT S GROUP 15 MINUTES [facility]OSPITAL ANTONIO - 6 6 [facility] OUTPATIEN INC T OFFICE 49994 [facility] OUTPATIEN 6 6 PHYSICIAN T NEW 30 S GROUP MINUTES HOSPITAL ANTONIO - 6 6 [facility] OUTPATIEN INC T OFFICE 18527 [facility] OUTPATIEN 6 6 PHYSICIAN EUG T VISIT S GROUP 15 MINUTES OFFICE 32325 [facility] [place] OUTPATIEN 6 6 PHYSICIAN T VISIT GROUP 25 MINUTES OFFICE 28695 EMMIE CANTRELL OUTPATIEN 6 6 AMA T VISIT CHIROPRAC 15 TIC CENTE MINUTES OFFICE 64971 [facility] [place] OUTPATIEN 6 6 PHYSICIAN T VISIT GROUP 15 MINUTES EMERGENCY 06231 ANTONIO 6 6 [facility] DEPARTMEN INC T VISIT LOW/MODER SEVERITY EMERGENCY 92066 [facility] 6 6 PHYSICIAN DEPARTMEN S, PLLC T VISIT MODERATE SEVERITY HOSPITAL ANTONIO - 6 6 [facility] OUTPATIEN INC T OFFICE 30216 EMMIE CANTRELL OUTPATIEN 6 6 AMA T VISIT CHIROPRAC 15 TIC CENTE MINUTES OFFICE 27524 ANTONIO ALMONTE OUTPATIEN 6 6 [facility] T VISIT HOSPITAL 25 MINUTES OFFICE 69755 GNOSTICISM SHANIKA OUTPATIEN 6 6 [facility]ALTH [facility] T VISIT MEDICAL 15 GROUP MINUTES OFFICE 44923 [facility] OUTPATIEN 6 6 PHYSICIAN STONE T VISIT S GROUP DOMINGO ALANIZ 25 MINUTES [facility] ANTONIO - 6 6 [facility] OUTPATIEN INC T OFFICE 59637 ROSIBEL ROMAN OUTPATIEN 6 6 JESSIE BOTELLO SHASTA T VISIT 15 MINUTES OFFICE 40714 [facility] JEFFRY OUTPATIEN 6 6 PHYSICIAN HUGH T VISIT S GROUP 15 MINUTES OFFICE 55609 [facility] JEFFRY OUTPATIEN 6 6 PHYSICIAN HUGH T VISIT S GROUP 15 MINUTES OFFICE 34041 ANTONIO HERNANDEZ [facility] OUTPATIEN 6 6 [facility] 15 MINUTES [facility]OSPITAL ANTONIO - 5 6 [facility] INPATIENT INC [facility] ANTONIO - 5 5 [facility] OUTPATIEN INC T OFFICE 24103 ROSIBEL ROMAN OUTPATIEN 5 5 JESSIE BOTELLO SHASTA T VISIT 15 MINUTES HOSPITAL ANTONIO - 5 5 [facility] OUTPATIEN INC T OFFICE 83542 ROSIBEL ROMAN OUTPATIEN 5 5 JESSIE VEGAS T VISIT 25 MINUTES OFFICE 68327 EMMIE SALEEM OUTPATIEN 5 5 [facility] T VISIT CHIROPRAC 10 TIC CENTE MINUTES OFFICE 35190 ANTONIO BELTRAN OUTPATIEN 5 5 [facility] T VISIT HOSPITAL 15 MINUTES HOSPITAL ANTONIO - 5 5 [facility] OUTPAT[facility]EN [facility] T [facility]OSPITAL ANTONIO - 5 5 [facility] OUTPATIEN INC T EMERGENCY 87053 ANTONIO 5 5 [facility] T VISIT MODERATE SEVERITY EMERGENCY 03101 [place] JAMISON 5 5 PHYSICIAN [facility] T VISIT HIGH/URGE NT SEVERITY HOSPITAL ANTONIO - 5 5 [facility] OUTPATIEN [facility] T EMERGENCY 57251 ANTONIO Apodaca 5 5 [facility] T VISIT P MODERATE SEVERITY EMERGENCY 99966 ANTONIO 5 5 [facility] T VISIT HIGH/URGE NT SEVERITY OFFICE 67300 ROSIBEL ROMAN OUTPATIEN 5 5 JESSIE VEGAS T VISIT 15 MINUTES HOSPITAL ANTONIO - 5 5 [facility] T [facility]PITAL ANTONIO - 5 5 [facility] OUTPATIEN INC T OFFICE 81194 ROSIBEL ROMAN OUTPATIEN 5 5 JESSIE VEGAS T VISIT 15 MINUTES OFFICE 56099 ROSIBEL ROMAN OUTPATIEN 5 5 JESSIE VEGAS T VISIT 15 MINUTES HOSPITAL ANTONIO - 5 5 [facility] OUTPATIEN INC T OFFICE 60060 ROSIBEL ROMAN OUTPATIEN 5 5 JESSIE VEGAS T VISIT 15 MINUTES HOSPITAL ANTONIO - 5 5 [facility] OUTPATIEN INC T Emergency KAMILLE Jamison MD (ER) 3 05:26 3 05:27 [facility]
--- OUTSIDE RECORDS SUMMARY | 2017-01-12 09:52 | External Medical Summary Rpt ---
Author Author , OMAIRA Hannah OMAIRA Address Unknown Phone [email or web address] Care Team Providers Care Netsuite Consultant Name Role Phone [facility] Unavailable Unavailable MEDICAL GROUP, [facility] HERNANDEZ TER, HERNANDEZ TER Unavailable [...] ROSIBEL ROMAN SHASTA, HARPEL Unavailable Unavailable SHASTA [facility] Unavailable Unavailable INC, [facility] Unavailable Unavailable HOSPITAL, [facility] Unavailable Unavailable HOSPITAL P, [facility] H[facility]PITAL P [facility], Unavailable Unavailable [facility] CANTRELL AMA, CANTRELL Unavailable Unavailable AMA DEY, DEY Unavailable Unavailable [facility] Janes Jamison MD, Unavailable Unavailable Janes OLPEZ, Unavailable Unavailable EVENS LOPEZ, Unavailable Unavailable EVENS RAMÍREZ, Unavailable Unavailable HARPER RAMÍREZ [facility] Unavailable Unavailable [facility], ALYSIA MARSHALL, [facility] RENEE PRA, RENEE PRA Unavailable Unavailable [facility] [...] Provider Status R002 PALPITATION 12-01-2016 [facility] MARSHALL, [facility] R079 CHEST PAIN 12-01-2016 [place] [facility] E8770 FLUID 11-29-2016 [facility] OVERLOAD [facility] UNSPECIFIED INC Z0389 ENCOUNTER 11-16-2016 [facility] OT MEDICAL SUSPCT DZ & IMAGING ASS COND RULED OUT [id number] SPRAIN UNS 10-20-2016 [facility] LIGAMENT PHYSICIANS LEFT ANKLE GROUP INITIAL ENCOUNTER I10 ESSENTIAL 10-16-2016 [facility] HYPERTENSIO INC N J069 ACUTE UPPER 10-16-2016 [facility] RESPIRATORY INC INFECTION UNSPECIFIED [id number] PRIMARY 10-10-2016 [place] [facility] LEFT IMAGING ASS ANKLE AND FOOT V14764 PAIN IN 10-10-2016 [place] RIGHT CHIROPRACTI SHOULDER C CENTE M5381 OTHER SPEC 10-10-2016 [place] DORSOPATHIE CHIROPRACTI S C CENTE OCCIPITO-AT HEATHER-AXIAL RGN M5386 OTHER 10-10-2016 [place] SPECIFIED CHIROPRACTI DORSOPATHIE C CENTE S LUMBAR REGION M5442 LUMBAGO 10-10-2016 [place] WITH CHIROPRACTI SCIATICA C CENTE LEFT SIDE M546 PAIN IN 10-10-2016 [place] THORACIC CHIROPRACTI SPINE C CENTE [id number] PAIN IN 10-10-2016 [place] LEFT FOOT MEDICAL IM[facility]ING ASS M9906 SEGMENTAL & 10-10-2016 [place] SOMATIC CHIROPRACTI DYSFUNCTION C CENTE LOWER EXTREMITY J0101 ACUTE 07-28-2016 [facility] RECURRENT PHYSICIANS MAXILLARY GROUP SINUSITIS J040 ACUTE 07-28-2016 [facility] LARYNGITIS PHYSICIANS GROUP U69397 ACUTE 06-29-2016 [facility] SUPPURATIVE PHYSICIANS OM W/O GROUP RUPT EAR DRUM RT EAR R109 UNSPECIFIED 06-29-2016 [facility] ABDOMINAL PHYSICIANS PAIN GROUP J0100 ACUTE 06-05-2016 [facility] MAXILLARY PHYSICIANS SINUSITIS GROUP UNSPECIFIED J40 BRONCHITIS 05-25-2016 [facility] NOT PHYSICIANS SPECIFIED GROUP ACUTE OR CHRONIC J029 ACUTE 05-04-2016 [facility] PHARYNGITIS PHYSICIANS GROUP UNSPECIFIED Z1231 ENCOUNTER 05-01-2016 [place] SCREENING [facility]ICAL MAMMO MALIG IMAGING ASS NEOPLASM BREAST N951 MENOPAUSAL 04-25-2016 [facility] AND FEMALE PHYSICIANS CLIMACTERIC GROUP STATES [id number] 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[facility] BREWER HELPER EXAM PHYSICIANS GENERAL RTN GROUP W/O ABNORMAL FIND Z1212 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[facility] SCREENING PHYSICIANS MALIGNANT GROUP NEOPLASM RECTUM J0390 ACUTE 04-13-2016 [facility] TONSILLITIS PHYSICIANS GROUP UNSPECIFIED M542 CERVICALGIA 03-30-2016 [place] CHIROPRACTI C CENTE H397HBI SPRAIN 03-30-2016 [place] LIGAMENTS CHIROPRACTI LUMBAR C CENTE SPINE INITIAL ENCOUNTER [id number] STRAIN 03-30-2016 [place] MUSCLE CHIROPRACTI FASCIA & C CENTE TENDON LOW BACK INITIAL F83073 PAIN IN 03-28-2016 [place] [facility] HAND [facility] M7989 OTHER 03-28-2016 [place] SPECIFIED MEDICAL SOFT TISSUE IMAGING ASS DISORDERS 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 M654 RADIAL 03-15-2016 [facility] STYLOID PHYSICIANS TENOSYNOVIT GROUP IS DE QUERVAIN Y81630 GANGLION 03-15-2016 [facility] RIGHT WRIST PHYSICIANS GROUP O59794 GANGLION 03-15-2016 [facility] LEFT WRIST PHYSICIANS GROUP S91695 PAIN IN 03-07-2016 [place] LEFT WRIST MEDICAL IMAGING ASS J58231 GANGLION 03-07-2016 [facility] RIGHT HAND PHYSICIANS GROUP V54538 GANGLION 03-07-2016 [facility] LEFT HAND PHYSICIANS GROUP F16355 PAIN IN 03-07-2016 [place] [facility] HAND [facility]ICAL IM[facility] ASS M9903 SEGMENTAL & 01-21-2016 [place] SOMATIC CHIROPRACTI DYSFUNCTION C CENTE OF LUMBAR REGION M545 LOW BACK 01-11-2016 [place] PAIN CHIROPRACTI C CENTE K1120 SIALOADENIT 01-04-2016 [facility]IC[facility]ANS, UNSPECIFIED PLLC K1121 ACUTE 01-04-2016 [facility] INC J329 CHRONIC 12-27-2015 [facility] SINUSITIS [facility] J0140 ACUTE 11-22-2015 [facility] MEDICAL UNSPECIFIED GROUP H6980 OTHER SPEC 11-09-2015 [facility] DISORDERS PHYSICIANS EUSTACHIAN GROUP TUBE UNS EAR I23899 UNSPECIFIED 11-09-2015 [facility] ASTHMA PHYSICIANS UNCOMPLICAT GROUP ED R5383 OTHER 11-09-2015 [facility] FATIGUE PHYSICIANS GROUP Z840 FAMILY 11-09-2015 [facility] HISTORY PHYSICIANS DISEASES GROUP SKIN & SUBQ TISSUE Z0100 ENCOUNTER 11-04-2015 [place] EXAM EYES & GRE VISION W/O ABNORMAL FIND H6690 OTITIS 09-22-2015 [facility] MEDIA PHYSICIANS UNSPECIFIED GROUP UNSPECIFIED EAR D54866 OTHER ACUTE 09-12-2015 [facility] DOMINICK OM RECURRENT BILAT J0190 ACUTE 09-12-2015 [facility] J209 ACUTE 09-12-2015 [facility] BRONCHITIS [facility] D259 LEIOMYOMA 06-03-2015 [facility] OF UTERUS [facility] UNSPECIFIED K660 PERITONEAL 06-03-2015 [facility] ADHESIONS [facility] POSTPROC INC POSTINFECTI ON N736 FEMALE 06-03-2015 [facility] PELVIC PHYSICIANS PERITONEAL GROUP ADHESIONS POSTINFECTI VE N800 ENDOMETRIOS 06-03-2015 [facility] IS OF LLC UTERUS N831 CORPUS 06-03-2015 [facility] LUTEUM CYST LLC N8320 UNSPECIFIED 06-03-2015 [facility] OVARIAN PHYSICIANS CYSTS GROUP N856 INTRAUTERIN 06-03-2015 [facility] E SYNECHIAE LLC N938 OTHER SPEC 06-03-2015 [facility] ABNORMAL PHYSICIANS UTERINE & GROUP VAGINAL BLEEDING R102 PELVIC AND 06-03-2015 [facility] PERINEAL [facility] PAIN INC B9689 OTH SPEC 05-24-2015 ROSIBEL Ceballos BACTERIAL JESSIE BOTELLO AGNT CAUSE DZ CLASSIFIED ELSW N760 ACUTE 05-24-2015 [facility] Ceballos VAGINITIS JESSIE BOTELLO Z67843 ENCOUNTER 05-24-2015 [facility] FOR OTHER [facility] PREPROCEDUR INC AL EXAMINATION N852 HYPERTROPHY 05-10-2015 [facility] OF UTERUS MEDICAL IMAGING ASS N9489 OTH COND 05-04-2015 ROSIBEL Ceballos ASSOC W/FE JESSIE BOTELLO GEN ORGN & MENSTRUAL CYCL 4019 UNSPECIFIED 02-03-2015 [facility] N 78558 ASTHMA, 02-03-2015 [facility] UNSPECIFIED [facility] UNSPECIFIED STATUS 5990 URINARY 02-03-2015 [facility] TRACT [facility] INFECTION HOSPITAL SITE NOT SPECIFIED 81099 ABDOMINAL 01-05-2015 [facility] PAIN OTHER [facility] SPECIFIED INC SITE 61098 OTHER 11-03-2014 [place] SPECIFIED MEDICAL DISORDER OF IMAGING ASS KIDNEY AND URETER 76947 ABDOMINAL 11-03-2014 [facility] PAIN RIGHT [facility] UPPER INC QUADRANT V1301 PERSONAL 11-03-2014 [facility] HISTORY OF [facility] URINARY INC CALCULI 462 ACUTE 10-07-2014 [facility] PHARYNGITIS [facility] P 81880 ACUTE 10-07-2014 [facility] LARYNGITIS, [facility] P MENTION OF OBSTRUCTIO 09200 UNSPECIFIED 09-14-2014 ROSIBEL Ceballos VAGINITIS JESSIE BOTELLO [...] CLIMACTERIC STATES V7612 OTHER 06-16-2014 [facility] SCREENING [facility] MAMMOGRAM INC 401.9 401.9 12-11-2012 [facility] 493.90 493.90 12-11-2012 [facility] Allergies, Adverse Reactions, Alerts Type Drug [...] SE 80 5- 4- 00 01 ve [place] 21 20 20 18 AI DE 61 [...] NO 00 9- 4- 00 01 ve SD 52 20 20 17 AI [place] 00 17 17 85 D -H [address] AR Z MA 20 CY -2 5 #3 MG 93 8 TA B LI 68 05 06 30 30 00 RI Ac SI 18 -2 -1 .0 00 TE ti NO 00 3- 6- 00 01 ve SD 52 20 20 17 AI IL 00 [...] NO 00 6- 9- 00 01 ve SD 52 20 20 17 AI [place] 00 [...] PA TC #3 H 93 8 SD 59 01 02 10 5 00 [...] MG #3 93 TA 8 BL ET SD 00 12 01 20 10 00 [...] Procedure DOS Code Location Performer Comment ECG 96206 ALYSIA DEY ROUTINE 7 PHYSICIAN ECG S, PLLC W/LEAST 12 LDS I&R ONLY RADIOLOGI 78434 [facility] 7 MEDICAL EXAMINATI IMAGING ON CHEST ASS SINGLE VIEW FRONTAL ECHO 81363 [facility] ALVAREZ TTHRC R-T 7 [facility] 2D INC INC W/WOM-MOD E COMPL SPEC&COLR D ECG 74014 AN[facility]IO TREADWELL ROUTINE [address] [facility] W/LEAST P 12 LDS I&R ONLY ECG 96620 [facility] ALVAREZ ROUTINE 7 [facility] ECG INC INC W/LEAST 12 LDS TRCG ONLY W/O I&R RHYTHM 72569 [facility] STONE ECG 1-3 7 PHYSICIAN LEADS S GROUP W/INTERPR ETATION & REPORT BLOOD 71444 [facility] COUNT 7 [facility] COMPLETE INC INC AUTO&AUTO DIFRNTL WBC COLLECTIO 29802 [facility] STONE N VENOUS 7 PHYSICIAN BLOOD S GROUP VENIPUNCT URE COMPREHEN 35876 [facility] ALVAREZ SIVE 7 [facility] METABOLIC INC INC PANEL NATRIURET 00650 [facility] AN[facility]IO IC 7 [facility] PEPTIDE INC INC RADIOLOGI 21237 [facility] EXAM 7 MEDICAL CHEST 2 IMAGING VIEWS ASS FRONTAL&L ATERAL IAADIADOO 84374 [facility] ALVAREZ 7 [facility] INFLUENZA INC INC IAADIADOO 79062 [facility] ANTONIO 7 [facility] STREPTOCO INC INC CCUS GROUP A MANUAL 06970 [place] [facility] THERAPY 7 TQS 1/> CHIROPRAC REGIONS TIC CENTE EACH 15 MINUTES RADEX 03208 [facility] FOOT 7 MEDICAL COMPLETE IMAGING MINIMUM 3 ASS VIEWS CHIROPRAC 44429 [place] T[facility] TIC 7 MANIPLTV CHIROPRAC TX TIC CENTE EXTRASPIN AL 1/> [place] [address] [place] T[facility] 1/> AREAS 7 EACH 15 CHIROPRAC MIN TIC CENTE NEUROMUSC REEDUCA CHIROPRAC 03947 [place] [facility] TIC 7 MANIPULAT CHIROPRAC DOMINICK TX TIC CENTE SPINAL 1-2 REGIONS THERAPEUT 11661 [facility] [place] IC 7 PHYSICIAN PROPHYLAC S GROUP TIC/DX INJECTION SUBQ/IM INJECTION J1100 [facility] [place] 7 PHYSICIAN DEXAMETHO S GROUP SONE SODIUM PHOSPHATE 1 MG MANUAL 81229 [facility] TUCKER THERAPY 7 TQS 1/> CHIROPRAC REGIONS TIC CENTE EACH 15 MINUTES CHIROPRAC 63473 EM[facility] TUCKER TIC 7 MANIPULAT CHIROPRAC DOMINICK TX TIC CENTE SPINAL 1-2 REGIONS THERAPEUT 48019 [facility] STONE IC 7 PHYSICIAN PROPHYLAC S GROUP TIC/DX INJECTION SUBQ/IM URNLS DIP 16988 [facility] 7 PHYSICIAN PHYSICIAN STICK/TAB S GROUP S GROUP LET RGNT NON-AUTO W/O MICRSCP INJECTION J0696 [facility] STONE 7 PHYSICIAN CEFTRIAXO S GROUP NE SODIUM PER 250 MG INJECTION J0696 [facility] STONE 6 PHYSICIAN CEFTRIAXO S GROUP NE SODIUM PER 250 MG THERAPEUT 03116 [facility] STONE IC 6 PHYSICIAN PROPHYLAC S GROUP TIC/DX INJECTION SUBQ/IM THERAPEUT 80570 [facility] [place] IC 6 PHYSICIAN PROPHYLAC S GROUP TIC/DX INJECTION SUBQ/IM INJECTION J0696 [facility] FR[place] 6 PHYSICIAN CEFTRIAXO S GROUP NE SODIUM PER 250 MG SCREENING G0202 [place] JACOB 6 MEDICAL ARELY MAMMOGRAP IMAGING HY MICHELE ASS INCL CAD WHEN PERFORMD COMPUTER- 88635 [facility] AIDED 6 MEDICAL ARELY DETECTION IMAGING ASS SCREENING MAMMOGRAP HY URINLS 57529 [facility] HAR[place] DIP 6 PHYSICIAN SHASTA STICK/TAB S GROUP LET REAGNT NON-AUTO MICRSCPY CULTURE 03249 [facility] [place] CHLAMYDIA 6 PHYSICIAN SHASTA ANY S GROUP SOURCE CYTP C/V 74956 BIO BIO AUTO THIN 6 REFERNCE REFERNCE LYR LABORATOR LABORATOR PREPJ SCR IES IES MNL RESCR PHYS IADNA 08065 BIO BIO TRICHOMON 6 REFERNCE REFERNCE LABORATOR LABORATOR VAGINALIS IES IES AMPLIFIED PROBE TECH IADNA 38319 BIO BIO CHLAMYDIA 6 REFERNCE REFERNCE LABORATOR LABORATOR TRACHOMAT IES IES IS AMPLIFIED PROBE TQ IADNA 84566 [facility] NEISSERIA 6 PHYSICIAN PHYSICIAN S GROUP S GROUP GONORRHOE AE DIRECT PROBE TQ IADNA 14114 BIO BIO NEISSERIA 6 REFERNCE REFERNCE LABORATOR LABORATOR GONORRHOE IES IES AE AMPLIFIED PROBE TQ IADNA NOS 83273 BIO BIO 6 REFERNCE REFERNCE AMPLIFIED LABORATOR LABORATOR PROBE TQ IES IES EACH ORGANISM INJECTION J0696 [facility] FRYMAN 6 PHYSICIAN EUG CEFTRIAXO S GROUP NE SODIUM PER 250 MG THERAPEUT 64205 [facility] [place] IC 6 PHYSICIAN EUG PROPHYLAC S GROUP TIC/DX INJECTION SUBQ/IM CHIROPRAC 38000 [place] CANTRELL TIC 6 AMA MANIPLTV CHIROPRAC TX TIC CENTE EXTRASPIN AL 1/> REGION CHIROPRAC 70450 [place] CANTRELL TIC 6 AMA MANIPULAT CHIROPRAC DOMINICK TX TIC CENTE SPINAL 3-4 REGIONS MANUAL 93034 [place] CANTRELL THERAPY 6 AMA TQS 1/> CHIROPRAC REGIONS TIC CENTE EACH 15 MINUTES MRI UPPER 07382 [facility] AL[facility]Z 6 [facility] EXTREMITY INC INC OTH THAN JT W/O CONTR MATRL APPL 04859 [place] CANTRELL MODALITY 6 AMA 1/> AREAS CHIROPRAC TIC CENTE ULTRASOUN D EA 15 MIN APPL 32561 [place] CANTRELL MODALITY 6 AMA 1/> AREAS CHIROPRAC ELEC TIC CENTE STIMJ UNATTENDE D CHIROPRAC 14038 [place] CANTRELL TIC 6 AMA MANIPULAT CHIROPRAC DOMINICK TX TIC CENTE SPINAL 3-4 REGIONS MANUAL 63014 [place] CANTRELL THERAPY 6 AMA TQS 1/> CHIROPRAC REGIONS TIC CENTE EACH 15 MINUTES MANUAL 20283 [place] CANTRELL THERAPY 6 AMA TQS 1/> CHIROPRAC REGIONS TIC CENTE EACH 15 MINUTES CHIROPRAC 67055 [place] CANTRELL TIC 6 AMA MANIPULAT CHIROPRAC DOMIN[place] TX TIC CENTE SPINAL 3-4 REGIONS APPL 50166 [place] CANTRELL MODALITY 6 AMA 1/> AREAS CHIROPRAC ELEC TIC CENTE STIMJ UNATTENDE D THERAPEUT 19605 [facility] IC 6 PHYSICIAN PHYSICIAN PROPHYLAC S GROUP S GROUP TIC/DX INJECTION SUBQ/IM APPL 52093 [place] CANTRELL MODALITY 6 AMA 1/> AREAS CHIROPRAC TIC CENTE ULTRASOUN D EA 15 MIN RADEX 43347 LAURENT MAZARIEGOS ALL WRIST 2 6 MEDICAL VIEWS IMAGING ASS RADEX 05907 AN[facility]IO ALVAREZ HAND 2 6 [facility] VIEWS INC INC APPL 00314 [place] CANTRELL MODALITY 6 AMA 1/> AREAS CHIROPRAC TIC CENTE ULTRASOUN D EA 15 MIN APPL 85139 [place] CANTRELL MODALITY 6 AMA 1/> AREAS CHIROPRAC ELEC TIC CENTE STIMJ UNATTENDE D MANUAL 12502 [place] CANTRELL THERAPY 6 AMA TQS 1/> CHIROPRAC REGIONS TIC CENTE EACH 15 MINUTES CHIROPRAC 12294 [place] CANTRELL TIC 6 AMA MANIPULAT CHIROPRAC DOMINICK TX TIC CENTE SPINAL 3-4 REGIONS CHIROPRAC 32997 [place] CANTRELL TIC 6 AMA MANIPULAT CHIROPRAC DOMINICK TX TIC CENTE SPINAL 3-4 REGIONS MANUAL 89907 [place] CANTRELL THERAPY 6 AMA TQS 1/> CHIROPRAC REGIONS TIC CENTE EACH 15 MINUTES APPL 15408 [place] CANTRELL MODALITY 6 AMA 1/> AREAS CHIROPRAC TIC CENTE ULTRASOUN D EA 15 MIN APPL 00740 [place] CANTRELL MODALITY 6 AMA 1/> AREAS CHIROPRAC ELEC TIC CENTE STIMJ UNATTENDE D APPL 51866 [place] CANTRELL MODALITY 6 AMA 1/> AREAS CHIROPRAC TIC CENTE ULTRASOUN D EA 15 MIN APPL 26543 [place] CANTRELL MODALITY 6 AMA 1/> AREAS CHIROPRAC ELEC TIC CENTE STIMJ UNATTENDE D MANUAL 13710 [place] CANTRELL THERAPY 6 AMA TQS 1/> CHIROPRAC REGIONS TIC CENTE EACH 15 MINUTES CHIROPRAC 40893 [place] CANTRELL TIC 6 AMA MANIPULAT CHIROPRAC DOMINICK TX TIC CENTE SPINAL 3-4 REGIONS CHIROPRAC 62448 [place] CANTRELL TIC 6 AMA MANIPULAT CHIROPRAC DOMINICK TX TIC CENTE SPINAL 3-4 REGIONS MANUAL 92000 [place] CANTRELL THERAPY 6 AMA TQS 1/> CHIROPRAC REGIONS TIC CENTE EACH 15 MINUTES APPL 35511 [place] CANTRELL MODALITY 6 AMA 1/> AREAS CHIROPRAC ELEC TIC CENTE STIMJ UNATTENDE D APPL 09228 [place] CANTRELL MODALITY 6 AMA 1/> AREAS CHIROPRAC TIC CENTE ULTRASOUN D EA 15 MIN APPL 37739 [place] CANTRELL MODALITY 6 AMA 1/> AREAS CHIROPRAC TIC CENTE ULTRASOUN D EA 15 MIN CHIROPRAC 33600 [place] CANTRELL TIC 6 AMA MANIPLTV CHIROPRAC TX TIC CENTE EXTRASPIN AL 1/> REGION APPL 22578 [place] CANT[facility]LL MODALITY 6 AMA 1/> AREAS CHIROPRAC ELEC TIC CENTE STIMJ UNATTENDE D THERAPEUT 25508 [place] CANTRELL IC PX 1/> 6 AMA AREAS CHIROPRAC EACH 15 TIC CENTE MIN EXERCISES MANUAL 51699 [place] CANTRELL THERAPY 6 AMA TQS 1/> CHIROPRAC REGIONS TIC CENTE EACH 15 MINUTES CHIROPRAC 64789 [place] CANTRELL TIC 6 AMA MANIPULAT CHIROPRAC DOMINICK TX TIC CENTE SPINAL 3-4 REGIONS MANUAL 36233 [place] CANTRELL THERAPY 6 AMA TQS 1/> CHIROPRAC REGIONS TIC CENTE EACH 15 MINUTES CHIROPRAC 12043 [place] CANTRELL TIC 6 AMA MANIPULAT CHIROPRAC DOMINICK TX TIC CENTE SPINAL 3-4 REGIONS APPL 13489 [place] CANTRELL MODALITY 6 AMA 1/> AREAS CHIROPRAC TRACTION TIC CENTE MECHANICA L APPL 33047 [place] CANT[facility]LL MODALITY 6 AMA 1/> AREAS CHIROPRAC ELEC TIC CENTE STIMJ UNATTENDE D CHIROPRAC 15050 [place] CANTRELL TIC 6 AMA MANIPLTV CHIROPRAC TX TIC CENTE EXTRASPIN AL 1/> REGION APPL 22760 [place] CANTRELL MODALITY 6 AMA 1/> AREAS CHIROPRAC TIC CENTE ULTRASOUN D EA 15 MIN APPL 87099 [place] CANTRELL MODALITY 6 AMA 1/> AREAS CHIROPRAC TIC CENTE ULTRASOUN D EA 15 MIN CHIROPRAC 49801 [place] CANTRELL TIC 6 AMA MANIPLTV CHIROPRAC TX TIC CENTE EXTRASPIN AL 1/> REGION APPL 44276 [place] CANT[place]LL MODALITY 6 AMA 1/> AREAS CHIROPRAC ELEC TIC CENTE STIMJ UNATTENDE D APPL 01294 [place] CANT[facility]LL MODALITY 6 AMA 1/> AREAS CHIROPRAC TRACTION TIC CENTE MECHANICA L MANUAL 71911 [place] CANTRELL THERAPY 6 AMA TQS 1/> CHIROPRAC REGIONS TIC CENTE EACH 15 MINUTES CHIROPRAC 09460 [place] CANTRELL TIC 6 AMA MANIPULAT CHIROPRAC DOMINICK TX TIC CENTE SPINAL 3-4 REGIONS CHIROPRAC 89266 [place] CANTRELL TIC 6 AMA MANIPULAT CHIROPRAC DOMINICK TX TIC CENTE SPINAL 3-4 REGIONS MANUAL 64274 [place] CANTRELL THERAPY 6 AMA TQS 1/> CHIROPRAC REGIONS TIC CENTE EACH 15 MINUTES APPL 70381 [place] CANT[facility]LL MODALITY 6 AMA 1/> AREAS CHIROPRAC TRACTION TIC CENTE MECHANICA L APPL 40835 [place] CANT[facility]LL MODALITY 6 AMA 1/> AREAS CHIROPRAC ELEC TIC CENTE STIMJ UNATTENDE D CHIROPRAC 48697 [place] CANT[facility]LL TIC 6 AMA MANIPLTV CHIROPRAC TX TIC CENTE EXTRASPIN AL 1/> REGION APPL 30937 [place] CANT[facility]LL MODALITY 6 AMA 1/> AREAS CHIROPRAC TIC CENTE ULTRASOUN D EA 15 MIN APPL 52271 [place] CANTRELL MODALITY 6 AMA 1/> AREAS CHIROPRAC TIC CENTE ULTRASOUN D EA 15 MIN CHIROPRAC 26261 [place] CANTRELL TIC 6 AMA MANIPLTV CHIROPRAC TX TIC CENTE EXTRASPIN AL 1/> REGION APPL 65438 [place] CANT[facility]LL MODALITY 6 AMA 1/> AREAS CHIROPRAC TRACTION TIC CENTE MECHANICA L APPL 24690 [place] CANT[facility] MODALITY 6 AMA 1/> AREAS CHIROPRAC ELEC TIC CENTE STIMJ UNATTENDE D MANUAL 93138 [place] CANTRELL THERAPY 6 AMA TQS 1/> CHIROPRAC REGIONS TIC CENTE EACH 15 MINUTES CHIROPRAC 75469 [place] CANTRELL TIC 6 AMA MANIPULAT CHIROPRAC DOMINICK TX TIC CENTE SPINAL 3-4 REGIONS CHIROPRAC 10043 [place] CANTRELL TIC 6 AMA MANIPULAT CHIROPRAC DOMINICK TX TIC CENTE SPINAL 3-4 REGIONS MANUAL 07606 [place] C[place] THERAPY 6 AMA TQS 1/> [facility] REGIONS TIC CENTE EACH 15 MINUTES APPL 98948 [place] MODALITY 6 AMA 1/> AREAS [facility]OP[facility] TIC CENTE ULTRASOUN D EA 15 MIN APPL 63858 [place] MODALITY 6 AMA 1/> AREAS [facility]IR[facility] TRACTION TIC CENTE MECHANICA L RADEX 00210 [place] SPINE 6 AMA LUMBOSACR CHIROPRAC AL 2/3 TIC CENTE VIEWS APPL 93147 [place] MODALITY 6 AMA 1/> AREAS [facility] ELEC TIC CENTE STIMJ UNATTENDE D [facility]AC 50329 [place] TIC 6 AMA MANIPLTV [facility]IR[facility] TX TIC CENTE EXTRASPIN AL 1/> REGION CHIROPRAC 48544 [place] TIC 6 AMA MANIPLTV [facility]IROP[facility] TX TIC CENTE EXTRASPIN AL 1/> REGION APPL 54890 [place] MODALITY 6 AMA 1/> AREAS CHIROPRAC TIC CENTE ULTRASOUN D EA 15 MIN APPL 70117 [place] MODALITY 6 AMA 1/> AREAS [facility]IR[facility] ELEC TIC CENTE STIMJ UNATTENDE D APPL 07707 [place] MODALITY 6 AMA 1/> AREAS [facility]IROP[facility] TRACTION TIC CENTE MECHANICA L MANUAL 23106 [place] THERAPY 6 AMA TQS 1/> [facility] REGIONS TIC CENTE EACH 15 MINUTES CHIROPRAC 22694 [place] TIC 6 AMA MANIPULAT [facility]IROP[facility] [place] TIC CENTE SPINAL 3-4 REGIONS CHIROPRAC 06807 [place] TIC 6 AMA MANIPULAT CHIROPRAC [place] TIC CENTE SPINAL 3-4 REGIONS MANUAL 98709 [place] THERAPY 6 AMA TQS 1/> CHIROPRAC REGIONS TIC CENTE EACH 15 MINUTES APPL 43814 [place] MODALITY 6 AMA 1/> AREAS CHIROPR[facility] TRACTION TIC CENTE MECHANICA L APPL 57053 [place] MODALITY 6 AMA 1/> AREAS CHIROPRAC ELEC TIC CENTE STIMJ UNATTENDE D APPL 92057 [place] MODALITY 6 AMA 1/> AREAS CHIROPRAC TIC CENTE ULTRASOUN D EA 15 MIN CHIROPRAC 90410 [place] TIC 6 AMA MANIPLTV CHIROPRAC TX TIC CENTE EXTRASPIN AL 1/> REGION CHIROPRAC 85321 [place] TIC 6 AMA MANIPLTV CHIROPRAC TX TIC CENTE EXTRASPIN AL 1/> REGION APPL 27857 [place] MODALITY 6 AMA 1/> AREAS CHIROPRAC ELEC TIC CENTE STIMJ UNATTENDE D APPL 16118 [place] MODALITY 6 AMA 1/> AREAS CHIROPRAC TRACTION TIC CENTE MECHANICA L MANUAL 62346 [place] THERAPY 6 AMA TQS 1/> CHIROPRAC REGIONS TIC CENTE EACH 15 MINUTES CHIROPRAC 73624 [place] TIC 6 AMA MANIPULAT CHIROPRAC [place] TIC CENTE SPINAL 3-4 REGIONS CHIROPRAC 41775 [place] TIC 6 AMA MANIPULAT CHIROPRAC [place] TIC CENTE SPINAL 3-4 REGIONS MANUAL 59733 [place] THERAPY 6 AMA TQS 1/> CHIROPRAC REGIONS TIC CENTE EACH 15 MINUTES APPL 04555 [place] MODALITY 6 AMA 1/> AREAS CHIROPRAC TRACTION TIC CENTE MECHANICA L CHIROPRAC 36882 [place] TIC 6 AMA MANIPLTV CHIROPRAC TX TIC CENTE EXTRASPIN AL 1/> REGION CHIROPRAC 70620 [place] TIC 6 AMA MANIPLTV CHIROPRAC TX TIC CENTE EXTRASPIN AL 1/> REGION APPL 91435 [place] MODALITY 6 AMA 1/> AREAS CHIROPRAC TIC CENTE ULTRASOUN D EA 15 MIN THERAPEUT 48906 [place] IC PX 1/> 6 AMA AREAS CHIROPR[facility] EACH 15 TIC CENTE MIN EXERCISES APPL 34099 [place] MODALITY 6 1/> AREAS CHIROPRAC CHIROPRAC TRACTION TIC CENTE TIC CENTE MECHANICA L APPL 82706 [place] MODALITY 6 AMA 1/> AREAS CHIROPRAC ELEC TIC CENTE STIMJ UNATTENDE D MANUAL 20536 [place] THERAPY 6 AMA TQS 1/> CHIROPRAC REGIONS TIC CENTE EACH 15 MINUTES CHIROPRAC 35398 [place] TIC 6 AMA MANIPULAT CHIROPRAC [place] TX TIC CENTE SPINAL 3-4 REGIONS CHIROPRAC 40888 [place] TIC 6 AMA MANIPULAT CHIROPRAC [place] TIC CENTE SPINAL 3-4 REGIONS MANUAL 24093 [place] THERAPY 6 AMA TQS 1/> CHIROPRAC REGIONS TIC CENTE EACH 15 MINUTES APPL 97282 [place] MODALITY 6 1/> AREAS CHIROPRAC CHIROPRAC ELEC TIC CENTE TIC CENTE STIMJ UNATTENDE D APPL 84451 [place] MODALITY 6 AMA 1/> AREAS CHIROPRAC TRACTION TIC CENTE MECHANICA L APPL 27065 [place] MODALITY 6 AMA 1/> AREAS CHIROPRAC TIC CENTE ULTRASOUN D EA 15 MIN CHIROPRAC 55228 [place] CANTRELL TIC 6 AMA MANIPLTV CHIROPRAC TX TIC CENTE EXTRASPIN AL 1/> REGION CHIROPRAC 58658 [place] CANTRELL TIC 6 AMA MANIPLTV CHIROPRAC TX TIC CENTE EXTRASPIN AL 1/> REGION APPL 14669 [place] CANTRELL MODALITY 6 AMA 1/> AREAS CHIROPRAC TIC CENTE ULTRASOUN D EA 15 MIN APPL 46884 [place] MODALITY 6 1/> AREAS CHIROPRAC CHIROPRAC TRACTION TIC CENTE TIC CENTE MECHANICA L APPL 83979 [place] CANTRELL MODALITY 6 AMA 1/> AREAS CHIROPRAC ELEC TIC CENTE STIMJ UNATTENDE D MANUAL 29608 [place] CANTRELL THERAPY 6 AMA TQS 1/> CHIROPRAC REGIONS TIC CENTE EACH 15 MINUTES CHIROPRAC 11094 [place] CANTRELL TIC 6 AMA MANIPULAT CHIROPRAC DOMINICK TX TIC CENTE SPINAL 3-4 REGIONS CHIROPRAC 36404 [place] CANTRELL TIC 6 AMA MANIPULAT CHIROPRAC DOMINICK TX TIC CENTE SPINAL 3-4 REGIONS MANUAL 40587 [place] CANTRELL THERAPY 6 AMA TQS 1/> CHIROPRAC REGIONS TIC CENTE EACH 15 MINUTES APPL 81325 [place] CANTRELL MODALITY 6 AMA 1/> AREAS CHIROPRAC ELEC TIC CENTE STIMJ UNATTENDE D APPL 06834 [place] CANTRELL MODALITY 6 AMA 1/> AREAS CHIROPRAC TRACTION TIC CENTE MECHANICA L APPL 83355 CYNCUATE [place] MODALITY 6 1/> AREAS CHIROPRAC CHIROPRAC TIC CENTE TIC CENTE ULTRASOUN D EA 15 MIN CHIROPRAC 68490 EMMIE RENEE PRA TIC 6 MANIPLTV CHIROPRAC TX TIC CENTE EXTRASPIN AL 1/> REGION CHIROPRAC 81211 [place] CANTRELL TIC 6 AMA MANIPLTV CHIROPRAC TX TIC CENTE EXTRASPIN AL 1/> REGION APPL 39748 [place] CANTRELL MODALITY 6 AMA 1/> AREAS CHIROPRAC ELEC TIC CENTE STIMJ UNATTENDE D APPL 62167 [place] MODALITY 6 1/> AREAS CHIROPRAC CHIROPRAC TRACTION TIC CENTE TIC CENTE MECHANICA L MANUAL 22067 [place] CANTRELL THERAPY 6 AMA TQS 1/> CHIROPRAC REGIONS TIC CENTE EACH 15 MINUTES CHIROPRAC 83951 [place] CANTRELL TIC 6 AMA MANIPULAT CHIROPRAC DOMINICK TX TIC CENTE SPINAL 3-4 REGIONS MANUAL 30753 [place] CANTRELL THERAPY 6 AMA TQS 1/> CHIROPRAC REGIONS TIC CENTE EACH 15 MINUTES CHIROPRAC 22754 [place] CANTRELL TIC 6 AMA MANIPULAT CHIROPRAC DOMINICK TX TIC CENTE SPINAL 3-4 REGIONS APPL 45266 CYNCUATE [place] MODALITY 6 1/> AREAS CHIROPRAC CHIROPRAC TRACTION TIC CENTE TIC CENTE MECHANICA L CHIROPRAC 17375 [place] CANTRELL TIC 6 AMA MANIPLTV CHIROPRAC TX TIC CENTE EXTRASPIN AL 1/> REGION APPL 22658 [place] CANTRELL MODALITY 6 AMA 1/> AREAS CHIROPRAC ELEC TIC CENTE STIMJ UNATTENDE D CHIROPRAC 82647 [place] CANTRELL TIC 6 AMA MANIPLTV CHIROPRAC TX TIC CENTE EXTRASPIN AL 1/> REGION APPL 01758 [place] CANTRELL MODALITY 6 AMA 1/> AREAS CHIROPRAC TRACTION TIC CENTE MECHANICA L APPL 78813 [place] CANTRELL MODALITY 6 AMA 1/> AREAS CHIROPRAC ELEC TIC CENTE STIMJ UNATTENDE D CHIROPRAC 26004 [place] CANTRELL TIC 6 AMA MANIPULAT CHIROPRAC DOMINICK TX TIC CENTE SPINAL 3-4 REGIONS MANUAL 90933 [place] CANTRELL THERAPY 6 AMA TQS 1/> CHIROPRAC REGIONS TIC CENTE EACH 15 MINUTES MANUAL 18014 [place] CANTRELL THERAPY 6 AMA TQS 1/> CHIROPRAC REGIONS TIC CENTE EACH 15 MINUTES CHIROPRAC 52497 [place] CANTRELL TIC 6 AMA MANIPULAT CHIROPRAC DOMINICK TX TIC CENTE SPINAL 3-4 REGIONS APPL 17055 [place] CANTRELL MODALITY 6 AMA 1/> AREAS CHIROPRAC ELEC TIC CENTE STIMJ UNATTENDE D APPL 44736 [place] CANTRELL MODALITY 6 AMA 1/> AREAS [place] [address] [place] CANTRELL 1/> AREAS 6 AMA EACH 15 CHIROPRAC MIN TIC CENTE NEUROMUSC REEDUCA CHIROPRAC 01219 [place] CANTRELL TIC 6 AMA MANIPLTV CHIROPRAC TX TIC CENTE EXTRASPIN AL 1/> REGION CHIROPRAC 68846 [place] CANTRELL TIC 6 AMA MANIPLTV CHIROPRAC TX TIC CENTE EXTRASPIN AL 1/> [place] [address] [place] CANTRELL 1/> AREAS 6 AMA EACH 15 CHIROPRAC MIN TIC CENTE NEUROMUSC REEDUCA APPL 67738 [place] CANTRELL MODALITY 6 AMA 1/> AREAS CHIROPRAC TRACTION TIC CENTE MECHANICA L APPL 71654 [place] CANTRELL MODALITY 6 AMA 1/> AREAS CHIROPRAC ELEC TIC CENTE STIMJ UNATTENDE D CHIROPRAC 31755 [place] CANTRELL TIC 6 AMA MANIPULAT CHIROPRAC DOMINICK TX TIC CENTE SPINAL 3-4 REGIONS MANUAL 70757 JOSÉJAREDTYSHAWN CANTRELL THERAPY 6 AMA TQS 1/> CHIROPRAC REGIONS TIC CENTE EACH 15 MINUTES IAADIADOO 96740 BAHAI SHANIKA [facility] [address] ANTONIO ALVAREZ THYROXINE 6 [facility] TOTAL INC INC ANTINUCLE 16945 ANTONIO ALVAREZ AR 6 [facility] ANTIBODIE INC INC S TYSHAWN DNA 24330 ANTONIO ALVAREZ ANTIBODY 6 [facility] [place]/DO INC INC UBLE STRANDED 25 90094 ANTONIO ALVAREZ HYDROXY 6 [facility] INCLUDES INC INC FRACTIONS IF PERFORMED CREATINE 81354 ANTONIO ALVAREZ KINASE 6 [facility] TOTAL INC INC COLLECTIO 99952 [facility] N VENOUS 6 PHYSICIAN STONE BLOOD S GROUP PA-C CORBIN VENIPUNCT URE COMPREHEN 95991 ANTONIO ALVAREZ SIVE 6 [facility] METABOLIC INC INC PANEL C-REACTIV 21196 ANTONIO ALVAREZ E PROTEIN 6 [place] [address] ANTONIO ALVAREZ THYROID 6 [facility] STIMULATI INC INC NG HORMONE TSH SEDIMENTA 33183 ANTONIO ALVAREZ TION RATE 6 [facility] RBC INC INC NON-AUTOM ATED BLOOD 92470 ANTONIO ALVAREZ COUNT 6 [facility] COMPLETE INC INC AUTO&AUTO DIFRNTL WBC OPHTH 13060 [facility] 6 GRE GRE XM&EVAL COMPRE NEW PT 1/> VST INJECTION J1040 [facility] JEFFRY 6 PHYSICIAN HUGH METHYLPRE S GROUP DNISOLONE ACETATE 80 MG INJECTION J0696 [facility] JEFFRY 6 PHYSICIAN HUGH CEFTRIAXO S GROUP NE SODIUM PER 250 MG THERAPEUT 62578 [facility] JEFFRY IC 6 PHYSICIAN HUGH PROPHYLAC S GROUP TIC/DX INJECTION SUBQ/IM THERAPEUT 31397 [facility] JEFFRY IC 6 PHYSICIAN HUGH PROPHYLAC S GROUP TIC/DX INJECTION SUBQ/IM INJECTION J0696 [facility] JEFFRY 6 PHYSICIAN HUGH CEFTRIAXO S GROUP NE SODIUM PER 250 MG INJECTION J1040 [facility] 6 PHYSICIAN HUGH METHYLPRE S GROUP DNISOLONE ACETATE 80 MG INJECTION J0561 [address] [place] E 699487 UNITS INJECTION J1100 [address] [facility] SODIUM PHOSPHATE 1 MG THERAPEUT 00900 [facility] IC 6 [facility] TIC/DX INJECTION SUBQ/IM TOTAL 11729 [facility] SCHULSTAD ABDOMINAL 5 PHYSICIAN CAM S GROUP HYSTERECT W/WO RM[place] L[place] [address] [facility], PICKLESIM SURG 5 [facility] PATHOLOGY GROSS&HUGH ROSCOPIC EXAM ANESTHESI 60271 [facility] SPARROW JADEN A 5 ANESTH INTRAPERI OF THE TONEAL BLUE LOWER ABD W/LAPS NOS SUSCEPTIB 50551 ANTONIO ALVAREZ LTY STDY 5 [facility] ANTIMICRB INC INC IAL MICRO/AGA R DILUTJ SMR PRIM 01612 ROSIBEL ROMAN SRC WET 5 JESSIE BOTELLO [facility] NFCT AGT CULTURE 67392 ANTONIO ALVAREZ BACTERIAL 5 [facility] INC INC QUANTTATI VE COLONY COUNT URINE COLLECTIO 37337 ANTONIO ALVAREZ N VENOUS 5 [facility] BLOOD INC INC VENIPUNCT URE BLOOD 21875 ANTONIO ALVAREZ COUNT 5 [facility] COMPLETE INC INC AUTO&AUTO DIFRNTL WBC URNLS DIP 36606 ANTONIO ALVAREZ 5 [facility] STICK/TAB INC INC LET REAGENT AUTO MICROSCOP Y GONADOTRO 09943 ANTONIO ALVAREZ PIN 5 [facility] [place] [address] [place] TRANSVAGI 5 MEDICAL ARELY NAL IMAGING ASS URINLS 07846 ROSIBEL ROMAN DIP 5 JESSIE VEGAS STICK/TAB LET REAGNT NON-AUTO MICRSCPY CHIROPRAC 37168 EMMIE SALEEM TIC 5 GAR MANIPLTV CHIROPRAC TX TIC CENTE EXTRASPIN AL 1/> [place] [address] EMMIE SALEEM 1/> AREAS 5 GAR EACH 15 CHIROPRAC MIN TIC CENTE NEUROMUSC REEDUCA CHIROPRAC 58584 EMMIE SALEEM TIC 5 GAR MANIPULAT CHIROPRAC DOMINICK TX TIC CENTE SPINAL 1-2 REGIONS APPL 61037 EMMIE SALEEM MODALITY 5 GAR 1/> AREAS CHIROPRAC TRACTION TIC CENTE MECHANICA L CHIROPRAC 67271 EMMIE SALEEM TIC 5 GAR MANIPULAT CHIROPRAC DOMINICK TX TIC CENTE SPINAL 1-2 [place] [address] EMMIE HARPER 1/> AREAS 5 GAR EACH 15 CHIROPRAC MIN TIC CENTE NEUROMUSC REEDUCA CHIROPRAC 81321 EMMIE SALEEM TIC 5 GAR MANIPLTV CHIROPRAC TX TIC CENTE EXTRASPIN AL 1/> [place] [address] EMMIE HARPER 1/> AREAS 5 GAR EACH 15 [place] [address] EMMIE HARPER 1/> AREAS 5 GAR EACH 15 [place]IROPR[place] [address] EMMIE HARPER 1/> AREAS 5 GAR EACH 15 CHIROPRAC MIN TIC CENTE NEUROMUSC REEDUCA CHIROPRAC 98813 EMMIE SALEEM TIC 5 GAR MANIPULAT CHIROPRAC DOMINICK TX TIC CENTE SPINAL 1-2 REGIONS URNLS DIP 18932 ANTONIO BELTRAN 5 [facility] LET RGNT NON-AUTO W/O MICRSCP COMPREHEN 73217 ANTONIO ALVAREZ SIVE 5 [facility] METABOLIC INC INC PANEL COLLECTIO 44043 ANTONIO ALVAREZ N VENOUS 5 [facility] BLOOD INC INC VENIPUNCT URE URNLS DIP 85594 ANTONIO ALVAREZ 5 [facility] STICK/TAB INC INC LET REAGENT AUTO MICROSCOP Y BLOOD 25704 ANTONIO ALVAREZ COUNT 5 [facility] COMPLETE INC INC AUTO&AUTO DIFRNTL WBC URNLS DIP 12005 ANTONIO ALVAREZ 5 [facility] STICK/TAB INC [place] [address] ANTONIO ALVAREZ ABDOMEN & 5 [facility] PELVIS INC INC W/O CONTRAST MATERIAL COMPREHEN 54252 ANTONIO ALVAREZ SIVE 5 [facility] METABOLIC INC INC PANEL BLOOD 57533 ANTONIO ALVAREZ COUNT 5 [facility] COMPLETE INC INC AUTO&AUTO DIFRNTL WBC BLOOD 23464 ANTONIO ALVAREZ COUNT 5 [facility] COMPLETE INC INC AUTO&AUTO DIFRNTL WBC UNCLASSIF J3490 ANTONIO ALVAREZ IED DRUGS 5 [facility] INC INC COMPREHEN 11970 ANTONIO ALVAREZ SIVE 5 [facility] METABOLIC INC INC PANEL IMMUNOASS 69666 ANTONIO ALVAREZ AY NFCT 5 [facility] AGT ANTB INC INC QUAL/SEMI ANGIE 1 [place] [address] ANTONIO ANTONIO INFUSION 5 [facility] THERAPY/P INC INC ROPHYLAXI S /DX 1ST TO 1 HR HGB 26987 ROSIBEL ROMAN QUANTITAT 5 JESSIE VEGAS DOMINICK TRANSCUTA NEOUS SMR PRIM 90962 ROSIBEL ROMAN SRC WET 5 JESSIE BOTELLO [facility] NFCT AGT UNCLASSIF J3490 ANTONIO ANTONIO IED DRUGS 5 [facility] INC INC ANESTHESI 88894 [facility] A VAGINAL 5 ANESTH LUCERO OF THE PROCEDURE BLUE W/BIOPSY NOS INJECTION J2405 ANTONIO ALVAREZ 5 [facility] ONDANSETR INC INC ON HCL [place] 1 [place] [address] [facility], P&C LABS, SURG 5 [facility] PATHOLOGY GROSS&HUGH ROSCOPIC EXAM BLOOD 23027 ANTONIO ALVAREZ COUNT 5 [facility] HEMATOCRI INC INC T BLOOD 74389 ANTONIO ANTONIO COUNT 5 [facility] [place] [address] ANTONIO ANTONIO INFUSION 5 [facility] THERAPY INC INC PROPHYLAX IS/DX EA HOUR DILATION 56978 ROSIBEL ROMAN & 5 JESSIE VEGAS CURETTAGE DX&/THER NONOBSTET JACQUI COLLECTIO 68643 ANTONIO ALVAREZ N VENOUS 5 [facility] BLOOD INC INC VENIPUNCT URE COLLECTIO 65243 ANTONIO ALVAREZ N VENOUS 5 [facility] BLOOD INC INC VENIPUNCT URE URINE 71857 ANTONIO ALVAREZ 5 [facility] TEST INC INC VISUAL COLOR CMPRSN METHS BLOOD 13059 ANTONIO ALVAREZ COUNT 5 [facility] COMPLETE INC INC AUTO&AUTO DIFRNTL WBC URNLS DIP 74422 ANTONIO ALVAREZ 5 [facility] STICK/TAB INC INC LET REAGENT AUTO MICROSCOP Y CULTURE 88424 ANTONIO ALVAREZ BACTERIAL 5 [facility] INC INC QUANTTATI VE COLONY COUNT URINE BLOOD 81737 ANTONIO ALVAREZ COUNT 5 [facility] COMPLETE INC INC AUTO&[place] [address] ANTONIO ALVAREZ TRANSVAGI 5 [facility] NAL INC INC COLLECTIO 44399 ANTONIO ALVAREZ N VENOUS 5 [facility] BLOOD INC INC VENIPUNCT URE SCREENING G0202 ANTONIO ALVAREZ 5 [facility] MAMMOGRAP INC INC HY MICHELE INCL CAD WHEN PERFORMD 84030 ANTONIO ALVAREZ AIDED 5 [facility] DETECTION INC INC SCREENING MAMMOGRAP HY Encounters Encounter Start End Date Code Location Performer Type Date EMERGENCY 47797 [place] DEY DEPT 7 7 PHYSICIAN VISIT S, PLL[facility] HIGH SEVERITY& THREAT [facility] ANTONIO - 7 7 [facility] OUTPATIEN INC T OFFICE 47852 [facility] STONE OUTPATIEN 7 7 PHYSICIAN T VISIT S GROUP 15 MINUTES OFFICE 48176 [facility] STONE OUTPATIEN 7 7 PHYSICIAN T VISIT S GROUP 25 MINUTES [facility] ANTONIO - 7 7 [facility] OUTPATIEN INC T OFFICE 13054 [facility] [place] OUTPATIEN 7 7 PHYSICIAN T VISIT S GROUP 15 MINUTES [facility] ANTONIO - 7 7 [facility] OUTPATIEN INC T OFFICE 55024 ANTONIO OUTPATIEN 7 7 [facility] T VISIT 5 INC MINUTES OFFICE 26754 [facility] [place] OUTPATIEN 7 7 PHYSICIAN T VISIT S GROUP 25 MINUTES OFFICE 27438 [facility] STONE OUTPATIEN 7 7 PHYSICIAN T VISIT S GROUP 25 MINUTES OFFICE 03408 [facility] [place] OUTPATIEN 7 7 PHYSICIAN T VISIT S GROUP 25 MINUTES OFFICE 09027 [facility] OUTPATIEN 6 6 PHYSICIAN T VISIT S GROUP 15 MINUTES OFFICE 83657 [facility] [place] OUTPATIEN 6 6 PHYSICIAN T VISIT S GROUP 15 MINUTES OFFICE 96056 [facility] [place] OUTPATIEN 6 6 PHYSICIAN T VISIT S GROUP 25 MINUTES [facility]OSPITAL ANTONIO - 6 6 [facility] OUTPATIEN INC T PERIODIC 25687 [facility] HARPEL PREVENTIV 6 6 PHYSICIAN SHASTA E MED EST S GROUP PATIENT 40-64YRS OFFICE 47290 [facility] [place] OUTPATIEN 6 6 PHYSICIAN EUG T VISIT S GROUP 15 MINUTES HOSPITAL ANTONIO - 6 6 [facility] OUTPATIEN INC T OFFICE 14610 [facility] [place] OUTPATIEN 6 6 PHYSICIAN T NEW 30 S GROUP MINUTES HOSPITAL ANTONIO - 6 6 [facility] OUTPATIEN INC T OFFICE 07675 [facility] [place] OUTPATIEN 6 6 PHYSICIAN EUG T VISIT S GROUP 15 MINUTES OFFICE 61041 [facility] [place] OUTPATIEN 6 6 PHYSICIAN T VISIT GROUP 25 MINUTES OFFICE 62526 EMMIE CANTRELL OUTPATIEN 6 6 AMA T VISIT CHIROPRAC 15 TIC CENTE MINUTES OFFICE 72476 [facility] [place] OUTPATIEN 6 6 PHYSICIAN T VISIT GROUP 15 MINUTES EMERGENCY 09646 ANTONIO 6 6 [facility] DEPARTMEN INC T VISIT LOW/MODER SEVERITY EMERGENCY 55511 [place] VILLALOBOS [facility] 6 6 PHYSICIAN DEPARTMEN S, PLLC T VISIT MODERATE SEVERITY HOSPITAL ANTONIO - 6 6 [facility] OUTPATIEN INC T OFFICE 88603 EMMIE CANTRELL OUTPATIEN 6 6 AMA T VISIT CHIROPRAC 15 TIC CENTE MINUTES OFFICE 42506 ANTONIO ALMONTE OUTPATIEN 6 6 [facility] T VISIT HOSPITAL 25 MINUTES OFFICE 52912 BAHAI SHANIKA OUTPATIEN 6 6 HEALTH HEN T VISIT MEDICAL 15 GROUP MINUTES OFFICE 65386 [facility] Y[place]ANDE OUTPATIEN 6 6 PHYSICIAN STONE T VISIT S GROUP DOMINGO ALANIZ 25 MINUTES [facility] ANTONIO - 6 6 [facility] OUTPATIEN INC T OFFICE 52646 ROSIBEL ROMAN OUTPATIEN 6 6 JESSIE BOTELLO SHASTA T VISIT 15 MINUTES OFFICE 32924 [facility] JEFFRY OUTPATIEN 6 6 PHYSICIAN HUGH T VISIT S GROUP 15 MINUTES OFFICE 07637 [facility] JEFFRY OUTPATIEN 6 6 PHYSICIAN HUGH T VISIT S GROUP 15 MINUTES OFFICE 32729 ANTONIO HERNANDEZ [facility] OUTPATIEN 6 6 [facility] 15 MINUTES HOSPITAL ANTONIO - 5 6 [facility] INPATIENT INC [facility] ANTONIO - 5 5 [facility] OUTPATIEN INC T OFFICE 31981 ROSIBEL ROMAN OUTPATIEN 5 5 JESSIE BOTELLO SHASTA T VISIT 15 MINUTES HOSPITAL ANTONIO - 5 5 [facility] OUTPATIEN INC T OFFICE 63467 ROSIBEL ROMAN OUTPATIEN 5 5 JESSIE VEGAS T VISIT 25 MINUTES OFFICE 73253 EMMIE SALEEM OUTPATIEN 5 5 [facility] T VISIT CHIROPRAC 10 TIC CENTE MINUTES OFFICE 05168 ANTONIO BELTRAN OUTPATIEN 5 5 [facility] 15 MINUTES [facility]OSPITAL ANTONIO - 5 5 [facility] OUTPATIEN INC T HOSPITAL ANTONIO - 5 5 [facility] OUTPATIEN INC T EMERGENCY 11159 ANTONIO 5 5 [facility]NOTE 3] T VISIT MODERATE SEVERITY EMERGENCY 49708 [place] JAMISON 5 5 PHYSICIAN [facility] T VISIT HIGH/URGE NT SEVERITY HOSPITAL ANTONIO - 5 5 [facility] OUTPATIEN [facility] T EMERGENCY 55914 ANTONIO Apodaca 5 5 [facility] T VISIT P MODERATE SEVERITY EMERGENCY 94757 ANTONIO 5 5 [facility]NOTE 3] T VISIT HIGH/URGE NT SEVERITY OFFICE 55466 ROSIBEL ROMAN OUTPATIEN 5 5 JESSIE VEGAS T VISIT 15 MINUTES HOSPITAL ANTONIO - 5 5 [facility]EN [facility] T [facility]OSPITAL ANTONIO - 5 5 [facility] OUTPATIEN INC T OFFICE 66219 ROSIBEL ROMAN OUTPATIEN 5 5 JESSIE VEGAS T VISIT 15 MINUTES OFFICE 69818 ROSIBEL ROMAN OUTPATIEN 5 5 JESSIE VEGAS T VISIT 15 MINUTES HOSPITAL ANTONIO - 5 5 [facility] OUTPATIEN INC T OFFICE 33803 ROSIBEL ROMAN OUTPATIEN 5 5 JESSIE VEGAS T VISIT 15 MINUTES HOSPITAL ANTONIO - 5 5 [facility] OUTPATIEN INC T Emergency KAMILLE Jamison MD (ER) 3 05:26 3 05:27 [facility]
--- OUTSIDE RECORDS SUMMARY | 2017-01-12 09:57 | External Medical Summary Rpt ---
Author Author , OMAIRA Hannah OMAIRA Address Unknown Phone [email or web address] Care Team Providers Care Automat Watcher Name Role Phone [facility] Unavailable Unavailable MEDICAL GROUP, [facility] BEINEKE HARINDER, BEINEKE Unavailable [...] ROSIBEL ROMAN SHASTA, HARPEL Unavailable Unavailable SHASTA [facility] Unavailable Unavailable INC, [facility] Unavailable Unavailable HOSPITAL, [facility] Unavailable Unavailable HOSPITAL P, [facility] P [facility], Unavailable Unavailable [facility] CANTRELL AMA, CANTRELL Unavailable Unavailable AMA DEY, DEY Unavailable Unavailable [facility], [facility], Unavailable Unavailable [facility], Unavailable Unavailable [facility] S[facility], Unavailable Unavailable [facility] Un[facility], [facility] RENEE PRA, RENEE PRA Unavailable Unavailable PICKSHIMA MOONEY SANTOSH, Unavailable Unavailable PICKSHIM[facility] MOONEY SANTOSH SHANIKA HEN, SHANIKA Unavailable Unavailable HEN CUNNINGHAM, CUNNINGHAM Unavailable Unavailable SADEK MOH, SADEK MOH Unavailable Unavailable [facility] CAM, Unavailable Unavailable [facility] STONE, STONE Unavailable Unavailable SAVANNA BARKER, SAVANNA Unavailable Unavailable [facility] Purpose Continuity of Care Document - 06-16-2014 through 2016 Problems Code Diagnosis DOS Provider Status R002 PALPITATION 12-01-2016 [facility] MARSHALL, [facility] R079 CHEST PAIN 12-01-2016 [facility] [place] E8770 FLUID 11-29-2016 [facility] UNSPECIFIED INC Z0389 ENCOUNTER 11-16-2016 [place] OBSERV OT MEDICAL SUSPCT DZ & IMAGING ASS COND RULED OUT [id number] SPRAIN UNS 10-20-2016 [facility] LIGAMENT PHYSICIANS LEFT ANKLE GROUP INITIAL ENCOUNTER I10 ESSENTIAL 10-16-2016 [place] [facility] HYPERTENSIO INC N J069 ACUTE UPPER 10-16-2016 [facility] RESPIRATORY INC INFECTION UNSPECIFIED [id number] PRIMARY 10-10-2016 [place] OSTEOARTHRI MEDICAL TIS LEFT IMAGING ASS ANKLE AND FOOT N79876 PAIN IN 10-10-2016 [place] RIGHT CHIROPRACTI SHOULDER C CENTE M5381 OTHER SPEC 10-10-2016 [place] DORSOPATHIE CHIROPRACTI S C CENTE OCCIPITO-AT HEATHER-AXIAL RGN M5386 OTHER 10-10-2016 [place] SPECIFIED CHIROPRACTI DORSOPATHIE C CENTE S LUMBAR REGION M5442 LUMBAGO 10-10-2016 [place] WITH CHIROPRACTI SCIATICA C CENTE LEFT SIDE M546 PAIN IN 10-10-2016 [place] THORACIC CHIROPRACTI SPINE C CENTE G21550 PAIN IN 10-10-2016 [place] LEFT FOOT MEDICAL IM[facility]ING ASS M9906 SEGMENTAL & 10-10-2016 [place] SOMATIC CHIROPRACTI DYSFUNCTION C CENTE LOWER EXTREMITY J0101 ACUTE 07-28-2016 [facility] RECURRENT PHYSICIANS MAXILLARY GROUP SINUSITIS J040 ACUTE 07-28-2016 [facility] LARYNGITIS PHYSICIANS GROUP [id number] ACUTE 06-29-2016 [facility] SUPPURATIVE PHYSICIANS OM W/O GROUP RUPT EAR DRUM RT EAR R109 UNSPECIFIED 06-29-2016 [facility] ABDOMINAL PHYSICIANS PAIN GROUP J0100 ACUTE 06-05-2016 [facility] MAXILLARY PHYSICIANS SINUSITIS GROUP UNSPECIFIED J40 BRONCHITIS 05-25-2016 [facility] NOT PHYSICIANS SPECIFIED GROUP ACUTE OR CHRONIC J029 ACUTE 05-04-2016 [facility] PHARYNGITIS PHYSICIANS GROUP UNSPECIFIED Z1231 ENCOUNTER 05-01-2016 [place] SCREENING MEDICAL MAMMO MALIG IMAGING ASS NEOPLASM BREAST N951 MENOPAUSAL 04-25-2016 [facility] AND FEMALE PHYSICIANS CLIMACTERIC GROUP STATES N93605 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 PHYSICIANS GENERAL RTN GROUP W/O ABNORMAL FIND Z1212 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[facility] SCREENING PHYSICIANS MALIGNANT GROUP NEOPLASM RECTUM J0390 ACUTE 04-13-2016 [facility] TONSILLITIS PHYSICIANS GROUP UNSPECIFIED M542 CERVICALGIA 03-30-2016 [place] CHIROPRACTI C CENTE A823VGD SPRAIN 03-30-2016 [place] LIGAMENTS CHIROPRACTI LUMBAR C CENTE SPINE INITIAL ENCOUNTER [id number] STRAIN 03-30-2016 [place] MUSCLE CHIROPRACTI FASCIA & C CENTE TENDON LOW BACK INITIAL Y93439 PAIN IN 03-28-2016 [place] LEFT HAND [facility]ICAL [facility] ASS M7989 OTHER 03-28-2016 [place] SPECIFIED MEDICAL SOFT TISSUE IMAGING ASS DISORDERS 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 M654 RADIAL 03-15-2016 [facility] STYLOID PHYSICIANS TENOSYNOVIT GROUP IS DE QUERVAIN V31847 GANGLION 03-15-2016 [facility] RIGHT WRIST PHYSICIANS GROUP Y57336 GANGLION 03-15-2016 [facility] LEFT WRIST PHYSICIANS GROUP Q18016 PAIN IN 03-07-2016 [place] LEFT WRIST MEDICAL IMAGING ASS D58830 GANGLION 03-07-2016 [facility] RIGHT HAND PHYSICIANS GROUP U22668 GANGLION 03-07-2016 [facility] LEFT HAND PHYSICIANS GROUP R51760 PAIN IN 03-07-2016 [place] RIGHT HAND [facility]ICAL IM[facility]ING ASS M9903 SEGMENTAL & 01-21-2016 [place] SOMATIC CHIROPRACTI DYSFUNCTION C CENTE OF LUMBAR REGION M545 LOW BACK 01-11-2016 [place] PAIN CHIROPRACTI C CENTE K1120 SIALOADENIT 01-04-2016 [facility], UNSPECIFIED PLLC K1121 ACUTE 01-04-2016 [facility] SIALOADENIT [facility] IS INC J329 CHRONIC 12-27-2015 [place] SINUSITIS [facility] J0140 ACUTE 11-22-2015 [facility] MEDICAL UNSPECIFIED GROUP H6980 OTHER SPEC 11-09-2015 [facility] DISORDERS PHYSICIANS EUSTACHIAN GROUP TUBE UNS EAR C25793 UNSPECIFIED 11-09-2015 [facility] ASTHMA PHYSICIANS UNCOMPLICAT GROUP ED R5383 OTHER 11-09-2015 [facility] FATIGUE PHYSICIANS GROUP Z840 FAMILY 11-09-2015 [facility] HISTORY PHYSICIANS DISEASES GROUP SKIN & SUBQ TISSUE Z0100 ENCOUNTER 11-04-2015 [facility] EXAM EYES & GRE VISION W/O ABNORMAL FIND H6690 OTITIS 09-22-2015 [facility] MEDIA PHYSICIANS UNSPECIFIED GROUP UNSPECIFIED EAR S06521 OTHER ACUTE 09-12-2015 [facility] DOM[facility] OM RECURRENT BILAT J0190 ACUTE 09-12-2015 [place] SINUSITIS [facility] J209 ACUTE 09-12-2015 [place] BRONCHITIS [facility] D259 LEIOMYOMA 06-03-2015 [facility] OF [facility] UNSPECIFIED K660 PERITONEAL 06-03-2015 [place] ADHESIONS [facility] POSTPROC INC POSTINFECTI ON N736 FEMALE 06-03-2015 [facility] PELVIC PHYSICIANS PERITONEAL GROUP ADHESIONS POSTINFECTI VE N800 ENDOMETRIOS 06-03-2015 [facility] IS OF LLC UTERUS N831 CORPUS 06-03-2015 [facility] LUTEUM CYST LLC N8320 UNSPECIFIED 06-03-2015 [facility] OVARIAN PHYSICIANS CYSTS GROUP N856 INTRAUTERIN 06-03-2015 [facility] E SYNECHIAE LLC N938 OTHER SPEC 06-03-2015 [facility] ABNORMAL PHYSICIANS UTERINE & GROUP VAGINAL BLEEDING R102 PELVIC AND 06-03-2015 [place] PERINEAL [facility] PAIN INC B9689 OTH SPEC 05-24-2015 [facility] Ceballos BACTERIAL JESSIE BOTELLO AGNT CAUSE DZ CLASSIFIED ELSW N760 ACUTE 05-24-2015 [facility] Ceballos VAGINITIS JESSIE BOTELLO F74304 ENCOUNTER 05-24-2015 [place] FOR OTHER [facility] PREPROCEDUR INC AL EXAMINATION N852 HYPERTROPHY 05-10-2015 [place] [facility] N9489 OTH COND 05-04-2015 [facility] Ceballos ASSOC W/FE JESSIE BOTELLO GEN ORGN & MENSTRUAL CYCL 4019 UNSPECIFIED 02-03-2015 [facility] N 61044 ASTHMA, 02-03-2015 [facility] UNSPECIFIED STATUS 5990 URINARY 02-03-2015 [facility] SITE NOT SPECIFIED 21612 ABDOMINAL 01-05-2015 [facility] PAIN OTHER [facility] SPECIFIED INC SITE 67528 OTHER 11-03-2014 [place] SPECIFIED MEDICAL DISORDER OF IMAGING ASS KIDNEY AND URETER 39729 ABDOMINAL 11-03-2014 [facility] PAIN RIGHT [facility] UPPER INC QUADRANT V1301 PERSONAL 11-03-2014 [facility] HISTORY OF [facility] URINARY INC CALCULI 462 ACUTE 10-07-2014 [facility] PHARYNGITIS [facility] P 87347 ACUTE 10-07-2014 [facility] LARYNGITIS, [facility] P MENTION OF OBSTRUCTIO 40683 UNSPECIFIED 09-14-2014 [facility]IB[facility] Ceballos VAGINITIS JESSIE BOTELLO AND VULVOVAGINI TIS 6262 EXCESSIVE 09-14-2014 ROSIBEL Ceballos OR FREQUENT JESSIE BOTELLO MENSTRUATIO N 0794 HUMAN 08-28-2014 [facility] VIRUS IN CCE & UNS SITE 6268 OTH D/O 08-28-2014 [facility] MENSTRUATIO [facility] N&OTH ABN INC BLEED FE GNT TRACT 6202 OTHER AND 08-27-2014 ROSIBEL ROMAN MD OVARIAN CYST V7283 OTHER 08-27-2014 [...] SE 80 5- 4- 00 01 ve IL 21 20 20 18 AI DE 61 [...] TC #3 H 93 8 LI 68 06 07 30 30 00 RI Ac SI 18 -1 -1 .0 00 TE ti NO 00 9- 4- 00 01 ve TX 52 20 20 17 AI IL 00 17 17 85 D -H [address] AR Z MA 20 CY -2 5 #3 MG 93 8 TA B CA 68 06 07 60 30 00 RI Ac RV 38 -2 -1 .0 00 TE ti ED 20 0- 4- 00 01 ve IL 09 20 20 18 AI OL 20 17 17 87 D 1 43 PH 3. AR 12 MA 5 CY MG #3 TA 93 BL 8 ET LI 68 05 06 30 30 00 RI Ac SI 18 -2 -1 .0 00 TE ti NO 00 3- 6- 00 01 ve TX 52 20 20 17 AI IL 00 [...] NO 00 6- 9- 00 01 ve TX 52 20 20 17 AI IL 00 [...] NO 00 2- 7- 00 01 ve TX 52 20 20 16 AI IL 00 [...] MG #3 TA 93 BL 8 ET TX 59 01 02 10 5 00 RI [...] NO 00 5- 0- 00 01 ve TX 52 20 20 16 AI IL 00 [...] MG #3 93 TA 8 BL ET TX 00 12 01 20 10 00 RI Ac OM 60 -2 -2 0. 00 TE ti ET 31 2- 0- 00 01 ve RAMIRES 58 20 20 0 16 AI ZI 65 16 17 36 D NE 4 14 PH -D AR M MA SY CY RU P #3 93 8 TX 00 12 01 10 5 00 RI [...] NO 00 5- 3- 00 01 ve TX 52 20 20 16 AI IL 00 16 17 26 D -H [address] AR Z MA 20 CY -2 5 #3 MG 93 8 TA B Procedures Procedure DOS Code Location Performer Comment ECG 04786 [facility] DEY ROUTINE 7 PHYSICIAN ECG S, PLLC W/LEAST 12 LDS I&R ONLY RADIOLOGI 41891 [facility] 7 MEDICAL EXAMINATI IMAGING ON CHEST ASS SINGLE VIEW FRONTAL ECHO 48475 [facility] UGARTEON TTHRC R-T 7 [facility] HOS[facility] 2D INC INC W/WOM-MOD E COMPL SPEC&COLR D ECG 04849 [facility] TREADWELL ROUTINE 7 [facility] W/LEAST P 12 LDS I&R ONLY RADIOLOGI 26329 [facility] EXAM 7 MEDICAL CHEST 2 IMAGING VIEWS ASS FRONTAL&L ATERAL ECG 70560 [facility] ALVAREZ ROUTINE 7 [facility] H[facility]OS[facility] ECG INC INC W/LEAST 12 LDS TRCG ONLY W/O I&R RHYTHM 77008 [facility] STONE ECG 1-3 7 PHYSICIAN LEADS S GROUP W/INTERPR ETATION & REPORT COLLECTIO 85791 [facility] STONE N VENOUS 7 PHYSICIAN BLOOD S GROUP VENIPUNCT URE COMPREHEN 12061 [facility] ALVAREZ SIVE 7 [facility] METABOLIC INC INC PANEL NATRIURET 54610 [facility] IC 7 [facility] PEPTIDE INC INC BLOOD 55183 [facility] ALVAREZ COUNT 7 [facility] COMPLETE INC INC AUTO&AUTO DIFRNTL WBC IAADIADOO 90443 [facility] ALVAREZ 7 [facility] STREPTOCO INC INC CCUS GROUP A IAADIADOO 36174 [facility] ALVAREZ 7 [facility] INFLUENZA INC INC CHIROPRAC 87959 [place] T[facility] TIC 7 MANIPULAT CHIROPRAC DOMINICK TX TIC CENTE SPINAL 1-2 REGIONS RADEX 39906 [place] MAZARIEGOS FOOT 7 MEDICAL COMPLETE IMAGING MINIMUM 3 [place] [address] [place] TUCKER 1/> AREAS 7 EACH 15 CH[facility]OP[facility] MIN TIC CENTE NEUROMUSC REEDUCA CHIROPRAC 45046 [place] T[facility] TIC 7 MANIPLTV CHIROPRAC TX TIC CENTE EXTRASPIN AL 1/> REGION MANUAL 70401 [place] [facility] THERAPY 7 TQS 1/> CHIROPRAC REGIONS TIC CENTE EACH 15 MINUTES THERAPEUT 70134 [facility] [place] IC 7 PHYSICIAN PROPHYLAC S GROUP TIC/DX INJECTION SUBQ/IM INJECTION J1100 [facility] [place] 7 PHYSICIAN DEXAMETHO S GROUP SONE SODIUM PHOSPHATE 1 MG CHIROPRAC 50545 [place] T[place] TIC 7 MANIPULAT CHIROPRAC DOMINICK TX TIC CENTE SPINAL 1-2 REGIONS MANUAL 03046 [place] T[facility]ER THERAPY 7 TQS 1/> CHIROPRAC REGIONS TIC CENTE EACH 15 MINUTES URNLS DIP 64499 [facility] 7 PHYSICIAN PHYSICIAN STICK/TAB S GROUP S GROUP LET RGNT NON-AUTO W/O MICRSCP INJECTION J0696 [facility] STONE 7 PHYSICIAN CEFTRIAXO S GROUP NE SODIUM PER 250 MG THERAPEUT 90148 [facility] STONE IC 7 PHYSICIAN PROPHYLAC S GROUP TIC/DX INJECTION SUBQ/IM THERAPEUT 73664 [facility] STONE IC 6 PHYSICIAN PROPHYLAC S GROUP TIC/DX INJECTION SUBQ/IM INJECTION J0696 [facility] STONE 6 PHYSICIAN CEFTRIAXO S GROUP NE SODIUM PER 250 MG INJECTION J0696 [facility] FRYMAN 6 PHYSICIAN CEFTRIAXO S GROUP NE SODIUM PER 250 MG THERAPEUT 02520 [facility] FRYMAN IC 6 PHYSICIAN PROPHYLAC S GROUP TIC/DX INJECTION SUBQ/IM SCREENING G0202 [facility] ALVAREZ 6 [facility] MAMMOGRAP INC INC HY MICHELE INCL CAD WHEN PERFORMD - 05589 [facility] ALVAREZ AIDED 6 [facility] DETECTION INC INC SCREENING MAMMOGRAP HY CULTURE 81084 [facility] HARPEL CHLAMYDIA 6 PHYSICIAN SHASTA ANY S GROUP SOURCE CYTP C/V 51051 BIO BIO AUTO THIN 6 REFERNCE REFERNCE LYR 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 PREPJ SCR IES IES MNL RESCR PHYS IADNA 66594 [facility] NEISSERIA 6 PHYSICIAN PHYSICIAN S GROUP S GROUP GONORRHOE AE DIRECT PROBE TQ IADNA 65547 BIO BIO NEISSERIA 6 REFERNCE REFERNCE LABORATOR LABORATOR GONORRHOE IES IES AE AMPLIFIED PROBE TQ IADNA NOS 69626 BIO BIO 6 REFERNCE REFERNCE AMPLIFIED LABORATOR LABORATOR PROBE TQ IES IES EACH ORGANISM IADNA 72241 BIO BIO TRICHOMON 6 REFERNCE REFERNCE LABORATOR LABORATOR VAGINALIS IES IES AMPLIFIED PROBE TECH IADNA 50338 BIO BIO CHLAMYDIA 6 REFERNCE REFERNCE LABORATOR LABORATOR TRACHOMAT IES IES IS AMPLIFIED PROBE TQ URINLS 88172 [facility] HARPEL DIP 6 PHYSICIAN SHASTA STICK/TAB S GROUP LET REAGNT NON-AUTO MICRSCPY INJECTION J0696 [facility] FRYMAN 6 PHYSICIAN EUG CEFTRIAXO S GROUP NE SODIUM PER 250 MG THERAPEUT 43544 [facility] FRYMAN IC 6 PHYSICIAN EUG PROPHYLAC S GROUP TIC/DX INJECTION SUBQ/IM CHIROPRAC 38652 [place] CANTRELL TIC 6 AMA MANIPLTV CHIROPRAC TX TIC CENTE EXTRASPIN AL 1/> REGION MANUAL 62028 [place] CANTRELL THERAPY 6 AMA TQS 1/> CHIROPRAC REGIONS TIC CENTE EACH 15 MINUTES CHIROPRAC 70124 [place] CANTRELL TIC 6 AMA MANIPULAT CHIROPRAC DOMINICK TX TIC CENTE SPINAL 3-4 REGIONS MRI UPPER 39888 [place] JACOB 6 MEDICAL EXTREMITY IMAGING OTH THAN ASS JT W/O CONTR MATRL APPL 89391 [place] CANTRELL MODALITY 6 AMA 1/> AREAS CHIROPRAC ELEC TIC CENTE STIMJ UNATTENDE D CHIROPRAC 92409 [place] CANTRELL TIC 6 AMA MANIPULAT CHIROPRAC DOMINICK TX TIC CENTE SPINAL 3-4 REGIONS MANUAL 41108 [place] CANTRELL THERAPY 6 AMA TQS 1/> CHIROPRAC REGIONS TIC CENTE EACH 15 MINUTES APPL 63178 [place] CANTRELL MODALITY 6 AMA 1/> AREAS CHIROPRAC TIC CENTE ULTRASOUN D EA 15 MIN APPL 43133 [place] CANTRELL MODALITY 6 AMA 1/> AREAS CHIROPRAC TIC CENTE ULTRASOUN D EA 15 MIN MANUAL 93654 [place] CANTRELL THERAPY 6 AMA TQS 1/> CHIROPRAC REGIONS TIC CENTE EACH 15 MINUTES CHIROPRAC 72300 [place] CANTRELL TIC 6 AMA MANIPULAT CHIROPRAC DOMINICK TX TIC CENTE SPINAL 3-4 REGIONS APPL 79093 [place] CANTRELL MODALITY 6 AMA 1/> AREAS CHIROPRAC ELEC TIC CENTE STIMJ UNATTENDE D THERAPEUT 07374 [facility] IC 6 PHYSICIAN PHYSICIAN PROPHYLAC S GROUP S GROUP TIC/DX INJECTION SUBQ/IM RADEX 54939 [place] [facility] ALL WRIST 2 6 MEDICAL VIEWS IMAGING ASS RADEX 02076 [place] [facility] ALL HAND 2 6 MEDICAL VIEWS IMAGING ASS APPL 25170 [place] CANTRELL MODALITY 6 AMA 1/> AREAS CHIROPRAC ELEC TIC CENTE STIMJ UNATTENDE D CHIROPRAC 34765 [place] CANTRELL TIC 6 AMA MANIPULAT CHIROPRAC DOMINICK TX TIC CENTE SPINAL 3-4 REGIONS MANUAL 30550 [place] CANTRELL THERAPY 6 AMA TQS 1/> CHIROPRAC REGIONS TIC CENTE EACH 15 MINUTES APPL 07623 [place] CANTRELL MODALITY 6 AMA 1/> AREAS CHIROPRAC TIC CENTE ULTRASOUN D EA 15 MIN APPL 73265 [place] CANTRELL MODALITY 6 AMA 1/> AREAS CHIROPRAC TIC CENTE ULTRASOUN D EA 15 MIN MANUAL 39287 [place] CANTRELL THERAPY 6 AMA TQS 1/> CHIROPRAC REGIONS TIC CENTE EACH 15 MINUTES CHIROPRAC 20487 [place] CANTRELL TIC 6 AMA MANIPULAT CHIROPRAC DOMINICK TX TIC CENTE SPINAL 3-4 REGIONS APPL 99528 [place] CANTRELL MODALITY 6 AMA 1/> AREAS CHIROPRAC ELEC TIC CENTE STIMJ UNATTENDE D APPL 74764 [place] CANTRELL MODALITY 6 AMA 1/> AREAS CHIROPRAC ELEC TIC CENTE STIMJ UNATTENDE D CHIROPRAC 36431 [place] CANTRELL TIC 6 AMA MANIPULAT CHIROPRAC DOMINICK TX TIC CENTE SPINAL 3-4 REGIONS MANUAL 68179 [place] CANTRELL THERAPY 6 AMA TQS 1/> CHIROPRAC REGIONS TIC CENTE EACH 15 MINUTES APPL 56682 [place] CANTRELL MODALITY 6 AMA 1/> AREAS CHIROPRAC TIC CENTE ULTRASOUN D EA 15 MIN APPL 27710 [place] CANTRELL MODALITY 6 AMA 1/> AREAS CHIROPRAC TIC CENTE ULTRASOUN D EA 15 MIN MANUAL 98250 [place] CANTRELL THERAPY 6 AMA TQS 1/> CHIROPRAC REGIONS TIC CENTE EACH 15 MINUTES CHIROPRAC 40995 [place] CANTRELL TIC 6 AMA MANIPULAT CHIROPRAC DOMINICK TX TIC CENTE SPINAL 3-4 REGIONS APPL 89603 [place] CANTRELL MODALITY 6 AMA 1/> AREAS CHIROPRAC ELEC TIC CENTE STIMJ UNATTENDE D APPL 97009 [place] CANTRELL MODALITY 6 AMA 1/> AREAS CHIROPRAC ELEC TIC CENTE STIMJ UNATTENDE D THERAPEUT 83696 [place] CANT[facility]LL IC PX 1/> 6 AMA AREAS CHIROPRAC EACH 15 TIC CENTE MIN EXERCISES CHIROPRAC 66470 [place] CANT[facility]LL TIC 6 AMA MANIPULAT CHIROPRAC DOMINICK TX TIC CENTE SPINAL 3-4 REGIONS MANUAL 27845 [place] CANTRELL THERAPY 6 AMA TQS 1/> CHIROPRAC REGIONS TIC CENTE EACH 15 MINUTES APPL 88940 [place] CANTRELL MODALITY 6 AMA 1/> AREAS CHIROPRAC TIC CENTE ULTRASOUN D EA 15 MIN CHIROPRAC 08062 [place] CANTRELL TIC 6 AMA MANIPLTV CHIROPRAC TX TIC CENTE EXTRASPIN AL 1/> REGION CHIROPRAC 83920 [place] CANTRELL TIC 6 AMA MANIPLTV CHIROPRAC TX TIC CENTE EXTRASPIN AL 1/> REGION APPL 82382 [place] CANT[facility]LL MODALITY 6 AMA 1/> AREAS CHIROPRAC TIC CENTE ULTRASOUN D EA 15 MIN MANUAL 59093 [place] CANT[facility]LL THERAPY 6 AMA TQS 1/> CHIROPRAC REGIONS TIC CENTE EACH 15 MINUTES CHIROPRAC 63987 [place] CANTRELL TIC 6 AMA MANIPULAT CHIROPRAC DOMINICK TX TIC CENTE SPINAL 3-4 REGIONS APPL 62786 [place] C[facility] MODALITY 6 AMA 1/> AREAS CHIROPRAC ELEC TIC CENTE STIMJ UNATTENDE D APPL 73098 [place] C[facility] MODALITY 6 AMA 1/> AREAS CHIROPRAC TRACTION TIC CENTE MECHANICA L APPL 03263 [place] C[facility] MODALITY 6 AMA 1/> AREAS CHIROPRAC TRACTION TIC CENTE MECHANICA L APPL 70819 [place] C[facility] MODALITY 6 AMA 1/> AREAS CHIROPRAC ELEC TIC CENTE STIMJ UNATTENDE D CHIROPRAC 74802 [place] CANT[facility]LL TIC 6 AMA MANIPULAT CHIROPRAC DOMINICK TX TIC CENTE SPINAL 3-4 REGIONS MANUAL 79228 [place] CANT[facility]LL THERAPY 6 AMA TQS 1/> CHIROPRAC REGIONS TIC CENTE EACH 15 MINUTES APPL 41338 [place] CANT[facility]LL MODALITY 6 AMA 1/> AREAS CHIROPRAC TIC CENTE ULTRASOUN D EA 15 MIN CHIROPRAC 97264 [place] CANT[facility]LL TIC 6 AMA MANIPLTV CHIROPRAC TX TIC CENTE EXTRASPIN AL 1/> REGION CHIROPRAC 18176 [place] C[facility] TIC 6 AMA MANIPLTV CHIROPRAC TX TIC CENTE EXTRASPIN AL 1/> REGION APPL 01776 [place] C[facility] MODALITY 6 AMA 1/> AREAS CHIROPRAC TIC CENTE ULTRASOUN D EA 15 MIN MANUAL 35326 [place] CANT[facility]LL THERAPY 6 AMA TQS 1/> CHIROPRAC REGIONS TIC CENTE EACH 15 MINUTES CHIROPRAC 87239 [place] CANT[facility]LL TIC 6 AMA MANIPULAT CHIROPRAC DOMINICK TX TIC CENTE SPINAL 3-4 REGIONS APPL 17232 [place] C[facility] MODALITY 6 AMA 1/> AREAS CHIROPRAC ELEC TIC CENTE STIMJ UNATTENDE D APPL 30534 [place] C[facility] MODALITY 6 AMA 1/> AREAS CHIROPRAC TRACTION TIC CENTE MECHANICA L APPL 83514 [place] C[facility] MODALITY 6 AMA 1/> AREAS CHIROPRAC TRACTION TIC CENTE MECHANICA L APPL 27902 [place] CANT[facility]LL MODALITY 6 AMA 1/> AREAS CHIROPRAC ELEC TIC CENTE STIMJ UNATTENDE D CHIROPRAC 90323 [place] TIC 6 AMA MANIPULAT CHIROPRAC DOMINICK TX TIC CENTE SPINAL 3-4 REGIONS MANUAL 74600 [place] THERAPY 6 AMA TQS 1/> CHIROPRAC REGIONS TIC CENTE EACH 15 MINUTES APPL 71080 [place] MODALITY 6 AMA 1/> AREAS CHIROPRAC TIC CENTE ULTRASOUN D EA 15 MIN CHIROPRAC 10623 [place] TIC 6 AMA MANIPLTV CHIROPRAC TX TIC CENTE EXTRASPIN AL 1/> REGION APPL 26378 [place] MODALITY 6 AMA 1/> AREAS CHIROPRAC TIC CENTE ULTRASOUN D EA 15 MIN CHIROPRAC 36746 [place] TIC 6 AMA MANIPLTV CHIROPRAC TX TIC CENTE EXTRASPIN AL 1/> REGION MANUAL 84099 [place] THERAPY 6 AMA TQS 1/> CHIROPRAC REGIONS TIC CENTE EACH 15 MINUTES CHIROPRAC 29986 [place] TIC 6 AMA MANIPULAT CHIROPRAC DOMINICK TX TIC CENTE SPINAL 3-4 REGIONS APPL 51482 [place] MODALITY 6 AMA 1/> AREAS CHIROPRAC ELEC TIC CENTE STIMJ UNATTENDE D APPL 16940 [place] MODALITY 6 AMA 1/> AREAS CHIROPRAC TRACTION TIC CENTE MECHANICA L RADEX 85268 [place] SPINE 6 AMA LUMBOSACR CHIROPRAC AL 2/3 TIC CENTE VIEWS APPL 88980 [place] MODALITY 6 AMA 1/> AREAS CHIROPRAC TRACTION TIC CENTE MECHANICA L APPL 14228 [place] MODALITY 6 AMA 1/> AREAS CHIROPRAC ELEC TIC CENTE STIMJ UNATTENDE D CHIROPRAC 44123 [place] TIC 6 AMA MANIPULAT CHIROPRAC DOMINICK TX TIC CENTE SPINAL 3-4 REGIONS MANUAL 52028 [place] THERAPY 6 AMA TQS 1/> CHIROPRAC REGIONS TIC CENTE EACH 15 MINUTES CHIROPRAC 98868 [place] TIC 6 AMA MANIPLTV CHIROPRAC TX TIC CENTE EXTRASPIN AL 1/> REGION APPL 81941 [place] MODALITY 6 AMA 1/> AREAS CHIROPRAC TIC CENTE ULTRASOUN D EA 15 MIN APPL 35212 [place] MODALITY 6 AMA 1/> AREAS CHIROPRAC TIC CENTE ULTRASOUN D EA 15 MIN CHIROPRAC 12857 [place] TIC 6 AMA MANIPLTV CHIROPRAC TX TIC CENTE EXTRASPIN AL 1/> REGION MANUAL 90775 [place] THERAPY 6 AMA TQS 1/> CHIROPRAC REGIONS TIC CENTE EACH 15 MINUTES CHIROPRAC 29558 [place] TIC 6 AMA MANIPULAT CHIROPRAC DOMINICK TX TIC CENTE SPINAL 3-4 REGIONS APPL 68869 [place] MODALITY 6 AMA 1/> AREAS CHIROPRAC ELEC TIC CENTE STIMJ UNATTENDE D APPL 33596 [place] MODALITY 6 AMA 1/> AREAS CHIROPRAC TRACTION TIC CENTE MECHANICA L APPL 49030 [place] MODALITY 6 AMA 1/> AREAS CHIROPRAC ELEC TIC CENTE STIMJ UNATTENDE D APPL 82544 [place] MODALITY 6 AMA 1/> AREAS CHIROPRAC TRACTION TIC CENTE MECHANICA L CHIROPRAC 09936 [place] TIC 6 AMA MANIPULAT CHIROPRAC DOMINICK TX TIC CENTE SPINAL 3-4 REGIONS MANUAL 98954 [place] THERAPY 6 AMA TQS 1/> CHIROPRAC REGIONS TIC CENTE EACH 15 MINUTES CHIROPRAC 87033 [place] TIC 6 AMA MANIPLTV CHIROPRAC TX TIC CENTE EXTRASPIN AL 1/> REGION CHIROPRAC 87774 [place] TIC 6 AMA MANIPLTV CHIROPRAC TX TIC CENTE EXTRASPIN AL 1/> REGION MANUAL 27329 [place] THERAPY 6 AMA TQS 1/> CHIROPRAC REGIONS TIC CENTE EACH 15 MINUTES CHIROPRAC 89358 [place] TIC 6 AMA MANIPULAT CHIROPRAC DOMINICK TX TIC CENTE SPINAL 3-4 REGIONS APPL 69589 [place] MODALITY 6 AMA 1/> AREAS CHIROPRAC TRACTION TIC CENTE MECHANICA L APPL 01011 [place] MODALITY 6 1/> AREAS CHIROPRAC CHIROPRAC TRACTION TIC CENTE TIC CENTE MECHANICA L APPL 12138 [place] MODALITY 6 AMA 1/> AREAS CHIROPRAC ELEC TIC CENTE STIMJ UNATTENDE D THERAPEUT 42920 [place] IC PX 1/> 6 AMA AREAS CHIROPRAC EACH 15 TIC CENTE MIN EXERCISES CHIROPRAC 59044 [place] TIC 6 AMA MANIPULAT CHIROPRAC DOMINICK TX TIC CENTE SPINAL 3-4 REGIONS MANUAL 32601 [place] THERAPY 6 AMA TQS 1/> CHIROPRAC REGIONS TIC CENTE EACH 15 MINUTES CHIROPRAC 85590 [place] CANTRELL TIC 6 AMA MANIPLTV CHIROPRAC TX TIC CENTE EXTRASPIN AL 1/> REGION APPL 51403 [place] CANTRELL MODALITY 6 AMA 1/> AREAS CHIROPRAC TIC CENTE ULTRASOUN D EA 15 MIN APPL 06694 [place] CANTRELL MODALITY 6 AMA 1/> AREAS CHIROPRAC TIC CENTE ULTRASOUN D EA 15 MIN CHIROPRAC 85930 [place] CANT[place] TIC 6 AMA MANIPLTV CHIROPRAC TX TIC CENTE EXTRASPIN AL 1/> REGION MANUAL 95493 [place] CANT[place] THERAPY 6 AMA TQS 1/> CHIROPRAC REGIONS TIC CENTE EACH 15 MINUTES CHIROPRAC 94236 [place] CANTRELL TIC 6 AMA MANIPULAT CHIROPRAC DOMINICK TX TIC CENTE SPINAL 3-4 REGIONS APPL 92487 [place] MODALITY 6 1/> AREAS CHIROPRAC CHIROPRAC ELEC TIC CENTE TIC CENTE STIMJ UNATTENDE D APPL 64793 [place] CANTRELL MODALITY 6 AMA 1/> AREAS CHIROPRAC TRACTION TIC CENTE MECHANICA L APPL 37944 [place] MODALITY 6 1/> AREAS CHIROPRAC CHIROPRAC TRACTION TIC CENTE TIC CENTE MECHANICA L APPL 94248 [place] CANTRELL MODALITY 6 AMA 1/> AREAS CHIROPRAC ELEC TIC CENTE STIMJ UNATTENDE D CHIROPRAC 85124 [place] CANTRELL TIC 6 AMA MANIPULAT CHIROPRAC DOMINICK TX TIC CENTE SPINAL 3-4 REGIONS MANUAL 37765 [place] CANTRELL THERAPY 6 AMA TQS 1/> CHIROPRAC REGIONS TIC CENTE EACH 15 MINUTES CHIROPRAC 14848 [place] CANTRELL TIC 6 AMA MANIPLTV CHIROPRAC TX TIC CENTE EXTRASPIN AL 1/> REGION APPL 52646 [place] CANTRELL MODALITY 6 AMA 1/> AREAS CHIROPRAC TIC CENTE ULTRASOUN D EA 15 MIN APPL 09117 [place] MODALITY 6 1/> AREAS CHIROPRAC CHIROPRAC TIC CENTE TIC CENTE ULTRASOUN D EA 15 MIN CHIROPRAC 37562 [place]WN BURDICKEL PRA TIC 6 MANIPLTV CHIROPRAC TX TIC CENTE EXTRASPIN AL 1/> REGION MANUAL 93727 [place] CANTRELL THERAPY 6 AMA TQS 1/> CHIROPRAC REGIONS TIC CENTE EACH 15 MINUTES CHIROPRAC 79058 [place] CANTRELL TIC 6 AMA MANIPULAT CHIROPRAC DOMINICK TX TIC CENTE SPINAL 3-4 REGIONS APPL 33340 [place] CANTRELL MODALITY 6 AMA 1/> AREAS CHIROPRAC ELEC TIC CENTE STIMJ UNATTENDE D APPL 26289 [place] CANTRELL MODALITY 6 AMA 1/> AREAS CHIROPRAC TRACTION TIC CENTE MECHANICA L APPL 83676 [place] MODALITY 6 1/> AREAS CHIROPRAC CHIROPRAC TRACTION TIC CENTE TIC CENTE MECHANICA L APPL 95753 [place] CANTRELL MODALITY 6 AMA 1/> AREAS CHIROPRAC ELEC TIC CENTE STIMJ UNATTENDE D CHIROPRAC 50549 [place] CANTRELL TIC 6 AMA MANIPULAT CHIROPRAC DOMINICK TX TIC CENTE SPINAL 3-4 REGIONS MANUAL 88146 [place] CANTRELL THERAPY 6 AMA TQS 1/> CHIROPRAC REGIONS TIC CENTE EACH 15 MINUTES CHIROPRAC 48126 [place] CANTRELL TIC 6 AMA MANIPLTV CHIROPRAC TX TIC CENTE EXTRASPIN AL 1/> REGION MANUAL 75357 [place] CANTRELL THERAPY 6 AMA TQS 1/> CHIROPRAC REGIONS TIC CENTE EACH 15 MINUTES CHIROPRAC 08622 [place] CANT[place]LL TIC 6 AMA MANIPULAT CHIROPRAC DOMINICK TX TIC CENTE SPINAL 3-4 REGIONS APPL 95052 [place] CANTRELL MODALITY 6 AMA 1/> AREAS CHIROPRAC ELEC TIC CENTE STIMJ UNATTENDE D CHIROPRAC 88173 [place] CANTRELL TIC 6 AMA MANIPLTV CHIROPRAC TX TIC CENTE EXTRASPIN AL 1/> REGION APPL 86193 [place] MODALITY 6 1/> AREAS CHIROPRAC CHIROPRAC TRACTION TIC CENTE TIC CENTE MECHANICA L APPL 98432 [place] CANTRELL MODALITY 6 AMA 1/> AREAS CHIROPRAC TRACTION TIC CENTE MECHANICA L CHIROPRAC 51008 [place] CANTRELL TIC 6 AMA MANIPLTV CHIROPRAC TX TIC CENTE EXTRASPIN AL 1/> REGION APPL 26292 [place] CANTRELL MODALITY 6 AMA 1/> AREAS CHIROPRAC ELEC TIC CENTE STIMJ UNATTENDE D CHIROPRAC 30814 [place] CANTRELL TIC 6 AMA MANIPULAT CHIROPRAC DOMINICK TX TIC CENTE SPINAL 3-4 REGIONS MANUAL 89948 [place] CANTRELL THERAPY 6 AMA TQS 1/> CHIROPRAC REGIONS TIC CENTE EACH 15 MINUTES MANUAL 09161 [place] CANTRELL THERAPY 6 AMA TQS 1/> CHIROPRAC REGIONS TIC CENTE EACH 15 MINUTES CHIROPRAC 77780 [place] CANTRELL TIC 6 AMA MANIPULAT CHIROPRAC DOMINICK TX TIC CENTE SPINAL 3-4 REGIONS APPL 60040 [place] CANTRELL MODALITY 6 AMA 1/> AREAS CHIROPRAC ELEC TIC CENTE STIMJ UNATTENDE D CHIROPRAC 64059 [place] CANTRELL TIC 6 AMA MANIPLTV CHIROPRAC TX TIC CENTE EXTRASPIN AL 1/> REGION APPL 53008 [place] CANTRELL MODALITY 6 AMA 1/> AREAS [place] [address] [place] CANTRELL 1/> AREAS 6 AMA EACH 15 CHIROPRAC [place] [address] [place] CANTRELL 1/> AREAS 6 AMA EACH 15 CHIROPRAC MIN TIC CENTE NEUROMUSC REEDUCA APPL 43816 [place] CANTRELL MODALITY 6 AMA 1/> AREAS CHIROPRAC TRACTION TIC CENTE MECHANICA L CHIROPRAC 03001 [place] CANTRELL TIC 6 AMA MANIPLTV CHIROPRAC TX TIC CENTE EXTRASPIN AL 1/> REGION APPL 87952 [place] CANTRELL MODALITY 6 AMA 1/> AREAS CHIROPRAC ELEC TIC CENTE STIMJ UNATTENDE D CHIROPRAC 01619 [place] CANTRELL TIC 6 AMA MANIPULAT CHIROPRAC DOMINICK TX TIC CENTE SPINAL 3-4 REGIONS MANUAL 67182 [place] CANTRELL THERAPY 6 AMA TQS 1/> CHIROPRAC REGIONS TIC CENTE EACH 15 MINUTES IAADIADOO 67082 [facility]ATIONIST SHANIKA [facility] GROUP A BLOOD 12323 ANTONIO ALVAREZ COUNT 6 [facility] COMPLETE INC INC AUTO&[place] [address] ANTONIO ALVAREZ THYROXINE 6 [facility] TOTAL INC INC ANTINUCLE 19646 ANTONIO ALVAREZ AR 6 [facility] ANTIBODIE INC INC S TYSHAWN COMPREHEN 35810 ANTONIO ALVAREZ SIVE 6 [facility] METABOLIC INC INC PANEL C-REACTIV 32027 ANTONIO ALVAREZ E PROTEIN 6 [facility] INC INC DNA 19047 ANTONIO ALVAREZ ANTIBODY 6 [facility] INUPIAT/DO INC INC UBLE STRANDED COLLECTIO 57001 [facility] N VENOUS 6 PHYSICIAN STONE BLOOD S GROUP PA-Zule[place] [address] ANTONIO ALVAREZ THYROID 6 [facility] STIMULATI INC INC NG HORMONE TSH SEDIMENTA 81133 ANTONIO ALVAREZ TIDIAZ RATE 6 [facility] RBC INC INC NON-AUTOM ATED 25 28931 ANTONIO ALVAREZ HYDROXY 6 [facility] INCLUDES INC INC FRACTIONS IF PERFORMED CREATINE 11298 ANTONIO ALVAREZ KINASE 6 [facility] TOTAL INC INC OPHTH 42272 [facility] 6 GRE GRE XM&EVAL COMPRE NEW PT 1/> VST THERAPEUT 51924 [facility] IC 6 PHYSICIAN HUGH PROPHYLAC S GROUP TIC/DX INJECTION SUBQ/IM INJECTION J1040 [facility] 6 PHYSICIAN HUGH METHYLPRE S GROUP DNISOLONE ACETATE 80 MG INJECTION J0696 [facility] 6 PHYSICIAN HUGH CEFTRIAXO S GROUP NE SODIUM PER 250 MG INJECTION J0696 [facility] 6 PHYSICIAN HUGH CEFTRIAXO S GROUP NE SODIUM PER 250 MG INJECTION J1040 [facility] 6 PHYSICIAN HUGH METHYLPRE S GROUP DNISOLONE ACETATE 80 MG THERAPEUT 33717 [facility] IC 6 PHYSICIAN HUGH PROPHYLAC S GROUP TIC/DX INJECTION SUBQ/IM THERAPEUT [address] IC 6 [facility] TIC/DX INJECTION SUBQ/IM INJECTION J[address] 6 [facility] SONE SODIUM PHOSPHATE 1 MG INJECTION J0561 ANTONIO [facility] N G BENZATHIN E 813372 UNITS TOTAL 53996 [facility] SCHULSTAD ABDOMINAL 5 PHYSICIAN CAM S GROUP HYSTERECT W/WO RMVL TUBE OVARY ANESTHESI 53343 [facility] JADEN A 5 ANESTH INTRAPERI OF THE TONEAL BLUE LOWER ABD W/[place] [address] [facility], PICKLESIM SURG 5 [facility] PATHOLOGY GROSS&HUGH ROSCOPIC EXAM COLLECTIO 57516 ANTONIO ALVAREZ N VENOUS 5 [facility] BLOOD INC INC VENIPUNCT URE GONADOTRO 62678 ANTONIO ALVAREZ PIN 5 [facility] CHORIONIC INC INC QUALITATI VE CULTURE 84968 ANTONIO ALVAREZ BACTERIAL 5 [facility] INC INC QUANTTATI VE COLONY COUNT URINE BLOOD 65486 ANTONIO ALVAREZ COUNT 5 [facility] COMPLETE INC INC AUTO&AUTO DIFRNTL WBC URNLS DIP 74516 ANTONIO ALVAREZ 5 [facility] STICK/TAB INC INC LET REAGENT AUTO MICROSCOP Y SUSCEPTIB 56692 ANTONIO ALVAREZ LTY STDY 5 [facility] ANTIMICRB INC INC IAL MICRO/AGA R DILUTJ SMR PRIM 08687 ROSIBEL ROMAN SRC WET 5 JESSIE VEGAS [facility] [place] [address] ANTONIO ALVAREZ TRANSVAGI 5 [facility] NAL INC INC URINLS 92663 ROSIBEL ROMAN DIP 5 JESSIE VEGAS STICK/TAB [place] [address] EMMIE SALEEM 1/> AREAS 5 GAR EACH 15 CHIROPRAC MIN TIC CENTE NEUROMUSC REEDUCA APPL 61076 EMMIE SALEEM MODALITY 5 GAR 1/> AREAS CHIROPRAC TRACTION TIC CENTE MECHANICA L CHIROPRAC 89327 EMMIE SALEEM TIC 5 GAR MANIPLTV CHIROPRAC TX TIC CENTE EXTRASPIN AL 1/> REGION CHIROPRAC 97363 EMMIE SALEEM TIC 5 GAR MANIPULAT CHIROPRAC DOMINICK TX TIC CENTE SPINAL 1-2 REGIONS CHIROPRAC 20766 EMMIE SALEEM TIC 5 GAR MANIPLTV CHIROPRAC TX TIC CENTE EXTRASPIN AL 1/> REGION CHIROPRAC 84235 EMMIE SALEEM TIC 5 GAR MANIPULAT CHIROPRAC DOMINICK TX TIC CENTE SPINAL 1-2 [place] [address] EMMIE SALEEM 1/> AREAS 5 GAR EACH 15 CHIROPRAC MIN [place] [address] EMMIE SALEEM 1/> AREAS 5 GAR EACH 15 [place] [address] EMMIE SALEEM 1/> AREAS 5 GAR EACH 15 [place]OPR[place] [address] EMMIE SALEEM 1/> AREAS 5 GAR EACH 15 CHIROPRAC MIN TIC CENTE NEUROMUSC REEDUCA CHIROPRAC 18052 EMMIE SALEEM TIC 5 GAR MANIPULAT CHIROPRAC DOMINICK TX TIC CENTE SPINAL 1-2 REGIONS URNLS DIP 13996 ANTONOI BELTRAN 5 [facility] LET RGNT NON-AUTO W/O MICRSCP COMPREHEN 68110 ANTONIO NICHOLSONE 5 [facility] METABOLIC INC INC PANEL COLLECTIO 45885 ANTONIO Cevallos VENOUS 5 [facility] BLOOD INC INC VENIPUNCT URE BLOOD 81677 ANTONIO ALVAREZ COUNT 5 [facility] COMPLETE INC INC AUTO&AUTO DIFRNTL WBC URNLS DIP 97084 ANTONIO ALVAREZ 5 [facility] STICK/TAB INC INC LET REAGENT AUTO MICROSCOP Y URNLS DIP 96798 ANTONIO ALVAREZ 5 [facility] STICK/TAB INC INC LET REAGENT AUTO MICROSCOP Y BLOOD 13706 ANTONIO ALVAREZ COUNT 5 [facility] COMPLETE INC INC AUTO&[place] [address] [place] [facility] ABDOMEN & 5 MEDICAL ARELY PELVIS IMAGING W/O ASS CONTRAST MATERIAL COMPREHEN 23164 ANTONIO ALVAREZ SIVE 5 [facility] METABOLIC INC INC PANEL COMPREHEN 36647 ANTONIO ALVAREZ SIVE 5 [facility] METABOLIC INC INC PANEL IMMUNOASS 76764 ANTONIO ALVAREZ AY NFCT 5 [facility] AGT ANTB INC INC QUAL/SEMI ANGIE 1 STEP BLOOD 50339 ANTONIO ALVAREZ COUNT 5 [facility] COMPLETE INC INC AUTO&[place] [address] ANTONIO ALVAREZ INFUSION 5 [facility] THERAPY/P INC INC ROPHYLAXI S /DX 1ST TO 1 HR UNCLASSIF J3490 ANTONIO ALVAREZ IED DRUGS 5 [facility] INC INC HGB 82455 ROSIBEL ROMAN QUANTITAT 5 JESSIE VEGAS DOMINICK TRANSCUTA NEOUS SMR PRIM 91864 ROSIBEL ROMAN SRC WET 5 JESSIE VEGAS [facility] NFCT AGT UNCLASSIF J3490 ANTONIO ALVAREZ IED DRUGS 5 [place] [address] ANTONIO ALVAREZ INFUSION 5 [facility] THERAPY INC INC PROPHYLAX IS/DX EA HOUR BLOOD 78692 ANTONIO ALVAREZ COUNT 5 [facility] HEMOGLOBI INC INC N DILATION 05651 ANTONIO UGARTEON & 5 [facility] CURETTAGE INC INC DX&/THER NONOBSTET JACQUI ANESTHESI 50418 [facility] VAGINAL 5 ANESTH LUCERO OF THE PROCEDURE BLUE W/BIOPSY NOS INJECTION J2405 ANTONIODIAZ ALVAREZ 5 [facility] ONDANSETR INC INC ON HCL PER 1 MG BLOOD 82049 ANTONIO ALVAREZ COUNT 5 [facility] HEMATOCRI INC INC T COLLECTIO 37865 ANTONIO ALVAREZ N VENOUS 5 [facility] [place] [address] [facility], P[facility] LABS, SURG 5 [facility] PATHOLOGY GROSS&HUGH ROSCOPIC EXAM COLLECTIO 14705 ANTONIO ALVAREZ N VENOUS 5 [facility] BLOOD INC INC VENIPUNCT URE BLOOD 12296 ANTONIO ALVAREZ COUNT 5 [facility] COMPLETE INC INC AUTO&AUTO DIFRNTL WBC URINE 57243 ANTONIO ALVAREZ 5 [facility] TEST INC INC VISUAL COLOR CMPRSN METHS CULTURE 77499 ANTONIO ALVAREZ BACTERIAL 5 [facility] INC INC QUANTTATI VE COLONY COUNT URINE URNLS DIP 72934 ANTONIO ANTONIO 5 [facility] STICK/TAB INC [place] [address] [facility] TRANSVAGI 5 MEDICAL HARINDER NAL IMAGING ASS BLOOD 11189 ANTONIO ANTONIO COUNT 5 [facility] COMPLETE INC INC AUTO&AUTO DIFRNTL WBC COLLECTIO 69524 ANTONIO ALVAREZ N VENOUS 5 [facility] BLOOD INC INC VENIPUNCT URE SCREENING G0202 ANTONIO ALVAREZ 5 [facility] MAMMOGRAP INC INC HY MICHELE INCL CAD WHEN PERFORMD COMPUTER- 38632 ANTONIO ALVAREZ AIDED [address] [facility] HOSP DETECTION INC INC SCREENING MAMMOGRAP HY Encounters Encounter Start End Date Code Location Performer Type Date EMERGENCY 55996 [facility] DEY DEPT 7 7 PHYSICIAN VISIT S, [facility] HIGH [facility]VERITY& THREAT [facility] ANTONIO - 7 7 [facility] OUTPATIEN INC T OFFICE 07840 [facility] STONE OUTPATIEN 7 7 PHYSICIAN T VISIT S GROUP 15 MINUTES OFFICE 91783 [facility] STONE OUTPATIEN 7 7 PHYSICIAN T VISIT S GROUP 25 MINUTES [facility] ANTONIO - 7 7 [facility] OUTPATIEN INC T OFFICE 93304 [facility] [place] OUTPATIEN 7 7 PHYSICIAN T VISIT S GROUP 15 MINUTES OFFICE 69164 ANTONIO OUTPATIEN 7 7 [facility] T VISIT 5 INC MINUTES [facility] ANTONIO - 7 7 [facility] OUTPATIEN INC T OFFICE 08365 [facility] [place] OUTPATIEN 7 7 PHYSICIAN T VISIT S GROUP 25 MINUTES OFFICE 32895 [facility] STONE OUTPATIEN 7 7 PHYSICIAN T VISIT S GROUP 25 MINUTES OFFICE 49862 [facility] [place] OUTPATIEN 7 7 PHYSICIAN T VISIT S GROUP 25 MINUTES OFFICE 52444 [facility] OUTPATIEN 6 6 PHYSICIAN T VISIT S GROUP 15 MINUTES OFFICE 07844 [facility] [place] OUTPATIEN 6 6 PHYSICIAN T VISIT S GROUP 15 MINUTES OFFICE 09150 [facility] [place] OUTPATIEN 6 6 PHYSICIAN T VISIT S GROUP 25 MINUTES HOSPITAL ANTONIO - 6 6 [facility] OUTPATIEN INC T PERIODIC 41119 [facility] HARPEL PREVENTIV 6 6 PHYSICIAN SHASTA E MED EST S GROUP PATIENT [id number] OFFICE 60877 [facility] [place] OUTPATIEN 6 6 PHYSICIAN EUG T VISIT S GROUP 15 MINUTES HOSPITAL ANTONIO - 6 6 [facility] OUTPATIEN INC T OFFICE 14526 [facility] [place] OUTPATIEN 6 6 PHYSICIAN T NEW 30 S GROUP MINUTES HOSPITAL ANTONIO - 6 6 [facility] OUTPATIEN INC T OFFICE 97755 [facility] [place] OUTPATIEN 6 6 PHYSICIAN EUG T VISIT S GROUP 15 MINUTES OFFICE 78723 [facility] [place] OUTPATIEN 6 6 PHYSICIAN T VISIT GROUP 25 MINUTES OFFICE 50175 JOSÉTHITYSHAWN HUFFELL OUTPATIEN 6 6 AMA T VISIT CHIROPRAC 15 TIC CENTE MINUTES OFFICE 88850 [facility] GAGE OUTPATIEN 6 6 PHYSICIAN T VISIT GROUP 15 MINUTES EMERGENCY 42923 [facility] 6 6 PHYSICIAN DEPARTMEN S, PLLC T VISIT MODERATE SEVERITY OFFICE 76592 EMMIE HUFFELL OUTPATIEN 6 6 AMA T VISIT CHIROPRAC 15 TIC CENTE MINUTES HOSPITAL ANTONIO - 6 6 [facility] OUTPATIEN INC T EMERGENCY 70343 ANTONIO 6 6 [facility] DEPARTMEN INC T VISIT LOW/MODER SEVERITY OFFICE 08606 ANTONIO ALMONTE OUTPATIEN 6 6 [facility] VIS[facility] HOSPITAL 25 MINUTES OFFICE 51240 [facility]ORATIONIST SHANIKA OUTPATIEN 6 6 [facility] T VISIT MEDICAL 15 GROUP MINUTES HOSPITAL ANTONIO - 6 6 [facility] OUTPATIEN INC T OFFICE 46785 [facility] LANIER OUTPATIEN 6 6 PHYSICIAN STONE T VISIT S GROUP PA-Zuleyma CORBIN 25 MINUTES OFFICE 20971 ROSIBEL ROMAN OUTPATIEN 6 6 JESSIE BOTELLO SHASTA T VISIT 15 MINUTES OFFICE 51517 [facility] JEFFRY OUTPATIEN 6 6 PHYSICIAN HUHG T VISIT S GROUP 15 MINUTES OFFICE 40974 [facility] JEFFRY OUTPATIEN 6 6 PHYSICIAN HUGH T VISIT S GROUP 15 MINUTES OFFICE 83882 ANTONIO EASLEY OUTPATIEN 6 6 [facility] VISIT HOSPITAL 15 MINUTES HOSPITAL ANTONIO - 5 6 [facility] INPATIENT [facility] ANTONIO - 5 5 [facility] OUTPATIEN INC T OFFICE 82974 ROSIBEL ROMAN OUTPATIEN 5 5 JESSIE VEGAS T VISIT 15 MINUTES HOSPITAL ANTONIO - 5 5 [facility] OUTPATIEN INC T OFFICE 62127 ROSIBEL ROMAN OUTPATIEN 5 5 JESSIE BOTELLO SHASTA T VISIT 25 MINUTES OFFICE 04666 EMMIE SALEEM OUTPATIEN 5 5 [facility] T VISIT CHIROPRAC 10 TIC CENTE MINUTES OFFICE 05015 ANTONIO BELTRAN OUTPATIEN 5 5 [facility] VISIT [facility] 15 MINUTES [facility] ANTONIO - 5 5 [facility] OUTPATIEN INC T EMERGENCY 93992 ANTONIO 5 5 [facility] DEPARTMEN INC T VISIT MODERATE SEVERITY EMERGENCY 32393 [facility]IA TERAN 5 5 PHYSICIAN [facility] T VISIT HIGH/URGE NT SEVERITY HOSPITAL ANTONIO - 5 5 [facility] OUTPATIEN [facility] T EMERGENCY 93684 ANTONIO Apodaca 5 5 [facility] T VISIT P MODERATE SEVERITY EMERGENCY 02386 ANTONIO 5 5 [facility] T VISIT HIGH/URGE NT SEVERITY HOSPITAL ANTONIO - 5 5 [facility] OUTPATIEN [facility] T OFFICE 77937 ROSIBEL ROMAN OUTPATIEN 5 5 JESSIE VEGAS T VISIT 15 MINUTES HOSPITAL ANTONIO - 5 5 [facility] OUTPATIEN INC HOSPITAL ANTONIO - 5 5 [facility] OUTPATIEN [facility] T OFFICE 95713 ROSIBEL ROMAN OUTPATIEN 5 5 JESSIE VEGAS T VISIT 15 MINUTES OFFICE 38777 ROSIBEL ROMAN OUTPATIEN 5 5 JESSIE VEGAS T VISIT 15 MINUTES HOSPITAL ANTONIO - 5 5 [facility] OUTPATIEN INC T OFFICE 77245 ROSIBEL ROMAN OUTPATIDWIGHT 5 5 JESSIE VEGAS T VISIT 15 MINUTES HOSPITAL ANTONIO - 5 5 [facility] OUTPATIEN INC T
--- OUTSIDE RECORDS SUMMARY | 2017-01-12 09:57 | External Medical Summary Rpt ---
Author Author , OMAIRA Hannah OMAIRA Address Unknown Phone [email or web address] Care Team Providers Care Dedenter Name Role Phone [facility] Unavailable Unavailable MEDICAL GROUP, [facility] BEINEKE HARINDER, BEINEKE Unavailable [...] ROSIBEL ROMAN SHASTA, HARPEL Unavailable Unavailable SHASTA [facility] Unavailable Unavailable INC, [facility] Unavailable Unavailable HOSPITAL, [facility] Unavailable Unavailable HOSPITAL P, [facility] H[facility]PITAL P [facility], Unavailable Unavailable [facility] CANTRELL AMA, CANTRELL Unavailable Unavailable AMA DEY, DEY Unavailable Unavailable [facility], [facility], Unavailable Unavailable [facility], Unavailable Unavailable [facility] S[facility], Unavailable Unavailable [facility] Un[facility], [facility] ERNEE PRA, RENEE PRA Unavailable Unavailable PICKSHIMA MOONEY SANTOSH, Unavailable Unavailable PICKSHIMA MOOENY SANTOSH SHANIKA HEN, SHANIKA Unavailable Unavailable HEN CUNNINGHAM, CUNNINGHAM Unavailable Unavailable SADEK MOH, SADEK MOH Unavailable Unavailable SCHULST[facility] CAM, Unavailable Unavailable [facility] CAM STONE, STONE Unavailable Unavailable SAVANNA BARKER, SAVANNA Unavailable Unavailable [facility] Purpose Continuity of Care Document - 06-16-2014 through 2016 Problems Code Diagnosis DOS Provider Status R002 PALPITATION 12-01-2016 [facility] MARSHALL, [facility] R079 CHEST PAIN 12-01-2016 [facility] E8770 FLUID 11-29-2016 [facility] OVERLOAD [facility] UNSPECIFIED INC Z0389 ENCOUNTER 11-16-2016 [facility] OBSERV OT MEDICAL SUSPCT DZ & IMAGING ASS COND RULED OUT [id number] SPRAIN UNS 10-20-2016 [facility] LIG[facility]ENT [facility] LEFT ANKLE GROUP INITIAL ENCOUNTER I10 ESSENTIAL 10-16-2016 [facility] HYPERTENSIO INC N J069 ACUTE UPPER 10-16-2016 [facility] RESP[facility] INC INFECTION UNSPECIFIED [id number] PRIMARY 10-10-2016 [facility] OSTEOARTHRI MEDICAL TIS LEFT IMAGING ASS ANKLE AND FOOT Z82222 PAIN IN 10-10-2016 [place] RIGHT CHIROPRACTI SHOULDER C CENTE M5381 OTHER SPEC 10-10-2016 [place] DORSOPATHIE CHIROPRACTI S C CENTE OCCIPITO-AT HEATHER-AXIAL RGN M5386 OTHER 10-10-2016 [place] SPECIFIED CHIROPRACTI DORSOPATHIE C CENTE S LUMBAR REGION M5442 LUMBAGO 10-10-2016 [place] WITH CHIROPRACTI SCIATICA C CENTE LEFT SIDE M546 PAIN IN 10-10-2016 [place] THORACIC CHIROPRACTI SPINE C CENTE C87270 PAIN IN 10-10-2016 [facility] LEFT FOOT [facility]ICAL IM[facility] M9906 SEGMENTAL & 10-10-2016 [place] SOMATIC CHIROPRACTI DYSFUNCTION C CENTE LOWER EXTREMITY J0101 ACUTE 07-28-2016 [facility] RECURRENT PHYSICIANS MAXILLARY GROUP SINUSITIS J040 ACUTE 07-28-2016 [facility] LARYNGITIS PHYSICIANS GROUP [id number] ACUTE 06-29-2016 [facility] SUPPURATIVE PHYSICIANS OM W/O GROUP RUPT EAR DRUM RT EAR R109 UNSPECIFIED 06-29-2016 [facility] ABDOMINAL PHYSICIANS PAIN GROUP J0100 ACUTE 06-05-2016 [facility] MAXILLARY PHYSICIANS SINUSITIS GROUP UNSPECIFIED J40 BRONCHITIS 05-25-2016 [facility] NOT PHYSICIANS SPECIFIED GROUP ACUTE OR CHRONIC J029 ACUTE 05-04-2016 [facility] PHARYNGITIS PHYSICIANS GROUP UNSPECIFIED Z1231 ENCOUNTER 05-01-2016 [facility] SCREENING [facility]ICAL MAMMO MALIG IMAGING ASS NEOPLASM BREAST N951 MENOPAUSAL 04-25-2016 [facility] AND FEMALE PHYSICIANS CLIMACTERIC GROUP STATES X64962 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[facility] SAFETY INSPECTOR EXAM PHYSICIANS GENERAL RTN GROUP W/O ABNORMAL FIND Z1212 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[facility] SCREENING PHYSICIANS MALIGNANT GROUP NEOPLASM RECTUM J0390 ACUTE 04-13-2016 [facility] TONSILLITIS PHYSICIANS GROUP UNSPECIFIED M542 CERVICALGIA 03-30-2016 [place] CHIROPRACTI C CENTE [id number] SPRAIN 03-30-2016 [place] LIGAMENTS CHIROPRACTI LUMBAR C CENTE SPINE INITIAL ENCOUNTER [id number] STRAIN 03-30-2016 [place] MUSCLE CHIROPRACTI FASCIA & C CENTE TENDON LOW BACK INITIAL T06543 PAIN IN 03-28-2016 [facility] LEFT HAND [facility] M7989 OTHER 03-28-2016 [facility] SPECIFIED MEDICAL SOFT TISSUE IMAGING ASS DISORDERS 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 M654 RADIAL 03-15-2016 [facility] STYLOID PHYSICIANS TENOSYNOVIT GROUP IS DE QUERVAIN M68084 GANGLION 03-15-2016 [facility] RIGHT WRIST PHYSICIANS GROUP M68496 GANGLION 03-15-2016 [facility] LEFT WRIST PHYSICIANS GROUP U56397 PAIN IN 03-07-2016 [place] LEFT WRIST [facility] IM[facility]ING ASS N18203 GANGLION 03-07-2016 [facility] RIGHT HAND PHYSICIANS GROUP V83792 GANGLION 03-07-2016 [facility] LEFT HAND PHYSICIANS GROUP X58670 PAIN IN 03-07-2016 [facility] RIGHT HAND [facility] M9903 SEGMENTAL & 01-21-2016 [place] SOMATIC CHIROPRACTI DYSFUNCTION C CENTE OF LUMBAR REGION M545 LOW BACK 01-11-2016 [place] PAIN CHIROPRACTI C CENTE K1120 SIALOADENIT 01-04-2016 [facility], UNSPECIFIED PLLC K1121 ACUTE 01-04-2016 [facility]IALOADENIT [facility] IS INC J329 CHRONIC 12-27-2015 [facility] SINUSITIS [facility] J0140 ACUTE 11-22-2015 [facility] UNSPECIFIED GROUP H6980 OTHER SPEC 11-09-2015 [facility] DISORDERS PHYSICIANS EUSTACHIAN GROUP TUBE UNS EAR G46829 UNSPECIFIED 11-09-2015 [facility] ASTHMA PHYSICIANS UNCOMPLICAT GROUP ED R5383 OTHER 11-09-2015 [facility] FATIGUE PHYSICIANS GROUP Z840 FAMILY 11-09-2015 [facility] HISTORY PHYSICIANS DISEASES GROUP SKIN & SUBQ TISSUE Z0100 ENCOUNTER 11-04-2015 [facility] EXAM EYES & GRE VISION W/O ABNORMAL FIND H6690 OTITIS 09-22-2015 [facility] MEDIA PHYSICIANS UNSPECIFIED GROUP UNSPECIFIED EAR R90059 OTHER ACUTE 09-12-2015 [facility] DOM[facility]ICK OM RECURRENT BILAT J0190 ACUTE 09-12-2015 [facility] SINUSITIS [facility] J209 ACUTE 09-12-2015 [facility] BRONCHITIS [facility] D259 LEIOMYOMA 06-03-2015 [facility] UNSPECIFIED K660 PERITONEAL 06-03-2015 [facility] ADHESIONS [facility] POSTPROC INC POSTINFECTI ON N736 FEMALE 06-03-2015 [facility] PELVIC PHYSICIANS PERITONEAL GROUP ADHESIONS POSTINFECTI VE N800 ENDOMETRIOS 06-03-2015 [facility] IS OF LLC UTERUS N831 CORPUS 06-03-2015 [facility] LUTEUM CYST LLC N8320 UNSPECIFIED 06-03-2015 [facility] OVARIAN PHYSICIANS CYSTS GROUP N856 INTRAUTERIN 06-03-2015 [facility] E SYNECHIAE LLC N938 OTHER SPEC 06-03-2015 [facility] ABNORMAL PHYSICIANS UTERINE & GROUP VAGINAL BLEEDING R102 PELVIC AND 06-03-2015 [facility] PERINEAL [facility] PAIN INC B9689 OTH SPEC 05-24-2015 [facility] Ceballos BACTERIAL JESSIE BOTELLO AGNT CAUSE DZ CLASSIFIED ELSW N760 ACUTE 05-24-2015 [facility] Ceballos VAGINITIS JESSIE BOTELLO H20425 ENCOUNTER 05-24-2015 [facility] FOR OTHER [facility] PREPROCEDUR INC AL EXAMINATION N852 HYPERTROPHY 05-10-2015 [place] [facility] N9489 OTH COND 05-04-2015 [facility] Ceballos ASSOC W/FE JESSIE BOTELLO GEN ORGN & MENSTRUAL CYCL 4019 UNSPECIFIED 02-03-2015 [facility] N 24035 ASTHMA, 02-03-2015 [facility] UNSPECIFIED STATUS 5990 URINARY 02-03-2015 [facility] INFECTION HOSPITAL SITE NOT SPECIFIED 62405 ABDOMINAL 01-05-2015 [facility] PAIN OTHER [facility] SPECIFIED INC SITE 85062 OTHER 11-03-2014 [place] SPECIFIED MEDICAL DISORDER OF IMAGING ASS KIDNEY AND URETER 67904 ABDOMINAL 11-03-2014 [facility] PAIN RIGHT [facility] UPPER INC QUADRANT V1301 PERSONAL 11-03-2014 [facility] HISTORY OF [facility] URINARY INC CALCULI 462 ACUTE 10-07-2014 [facility] PHARYNGITIS [facility] P 29376 ACUTE 10-07-2014 [facility] LARYNGITIS, [facility] P MENTION OF OBSTRUCTIO 54186 UNSPECIFIED 09-14-2014 ROSIBEL Ceballos VAGINITIS JESSIE BOTELLO [...] SE 80 5- 4- 00 01 ve ND 21 20 20 18 AI DE 61 [...] NO 00 9- 4- 00 01 ve UT 52 20 20 17 AI IL 00 [...] NO 00 3- 6- 00 01 ve UT 52 20 20 17 AI IL 00 [...] NO 00 6- 9- 00 01 ve UT 52 20 20 17 AI IL 00 [...] NO 00 2- 7- 00 01 ve UT 52 20 20 16 AI IL 00 [...] MG #3 TA 93 BL 8 ET UT 59 01 02 10 5 00 RI [...] NO 00 5- 0- 00 01 ve UT 52 20 20 16 AI IL 00 [...] MG #3 93 TA 8 BL ET UT 00 12 01 20 10 00 RI Ac OM 60 -2 -2 0. 00 TE ti ET 31 2- 0- 00 01 ve RAMIRES 58 20 20 0 16 AI ZI 65 16 17 36 D NE 4 14 PH -D AR M MA SY CY RU P #3 93 8 UT 00 12 01 10 5 00 RI [...] NO 00 5- 3- 00 01 ve UT 52 20 20 16 AI IL 00 16 17 26 D -H [address] AR Z MA 20 CY -2 5 #3 MG 93 8 TA B Procedures Procedure DOS Code Location Performer Comment ECG 37581 [facility] DEY ROUTINE 7 PHYSICIAN ECG S, PLLC W/LEAST 12 LDS I&R ONLY RADIOLOGI 73224 PSYCHIATRIC 7 MEDICAL EXAMINATI IMAGING ON CHEST ASS SINGLE VIEW FRONTAL ECHO 69866 [facility] UGARTEON TTHRC R-T 7 [facility] 2D INC INC W/WOM-MOD E COMPL SPEC&COLR D ECG 57679 [facility] TREADWELL ROUTINE 7 [facility] W/LEAST P 12 LDS I&R ONLY RADIOLOGI 26703 PSYCHIATRIC EXAM 7 MEDICAL CHEST 2 IMAGING VIEWS ASS FRONTAL&L ATERAL ECG 39610 [facility] ALVAREZ ROUTINE 7 [facility] ECG INC INC W/LEAST 12 LDS TRCG ONLY W/O I&R RHYTHM 75756 [facility] STONE ECG 1-3 7 PHYSICIAN LEADS S GROUP W/INTERPR ETATION & REPORT COLLECTIO 76522 [facility] N VENOUS 7 PHYSICIAN BLOOD S GROUP VENIPUNCT URE COMPREHEN 06336 [facility] ALVAREZ SIVE 7 [facility] METABOLIC INC INC PANEL NATRIURET 30860 [facility] IC 7 [facility] PEPTIDE INC INC BLOOD 93989 [facility] ALVAREZ COUNT 7 [facility] COMPLETE INC INC AUTO&AUTO DIFRNTL WBC IAADIADOO 59587 [facility] ALVAREZ 7 [facility] STREPTOCO INC INC CCUS GROUP A IAADIADOO 98221 [facility] ALVAREZ 7 [facility] INFLUENZA INC INC CHIROPRAC 51406 [place] TUCKER TIC 7 MANIPULAT CHIROPRAC DOMINICK TX TIC CENTE SPINAL 1-2 REGIONS RADEX 74934 [facility] MAZARIEGOS FOOT 7 MEDICAL COMPLETE IMAGING MINIMUM [address] [place] [address] [place] TUCKER 1/> AREAS 7 EACH 15 CHIROPRAC MIN TIC CENTE NEUROMUSC REEDUCA CHIROPRAC 08643 [place] TUCKER TIC 7 MANIPLTV CHIROPRAC TX TIC CENTE EXTRASPIN AL 1/> REGION MANUAL 57223 [place] TUCKER THERAPY 7 TQS 1/> CHIROPRAC REGIONS TIC CENTE EACH 15 MINUTES THERAPEUT 88601 [facility] IC 7 PHYSICIAN PROPHYLAC S GROUP TIC/DX INJECTION SUBQ/IM INJECTION J1100 [facility] [place] 7 PHYSICIAN DEXAMETHO S GROUP SONE SODIUM PHOSPHATE 1 MG CHIROPRAC 09217 [place] TUCKER TIC 7 MANIPULAT CHIROPRAC DOMINICK TX TIC CENTE SPINAL 1-2 REGIONS MANUAL 67956 [place] TUCKER THERAPY 7 TQS 1/> CHIROPRAC REGIONS TIC CENTE EACH 15 MINUTES URNLS DIP 10706 [facility] 7 PHYSICIAN PHYSICIAN STICK/TAB S GROUP S GROUP LET RGNT NON-AUTO W/O MICRSCP INJECTION J0696 [facility] STONE 7 PHYSICIAN CEFTRIAXO S GROUP NE SODIUM PER 250 MG THERAPEUT 37658 [facility] IC 7 PHYSICIAN PROPHYLAC S GROUP TIC/DX INJECTION SUBQ/IM THERAPEUT 67447 [facility] IC 6 PHYSICIAN PROPHYLAC S GROUP TIC/DX INJECTION SUBQ/IM INJECTION J0696 [facility] ST[facility] 6 PHYSICIAN CEFTRIAXO S GROUP NE SODIUM PER 250 MG INJECTION J0696 [facility] [place] 6 PHYSICIAN CEFTRIAXO S GROUP NE SODIUM PER 250 MG THERAPEUT 37117 [facility] IC 6 PHYSICIAN PROPHYLAC S GROUP TIC/DX INJECTION SUBQ/IM SCREENING G0202 [facility] ALVAREZ 6 [facility] MAMMOGRAP INC INC HY MICHELE INCL CAD WHEN PERFORMD - 15571 [facility] ALVAREZ AIDED 6 [facility] DETECTION INC INC SCREENING MAMMOGRAP HY CULTURE 98663 [facility] CHLAMYDIA 6 PHYSICIAN SHASTA ANY S GROUP SOURCE CYTP C/V 76270 BIO BIO AUTO THIN 6 REFERNCE REFERNCE LYR LABORATOR LABORATOR PREPJ SCR IES IES MNL RESCR PHYS IADNA 41977 [facility] NEISSERIA 6 PHYSICIAN PHYSICIAN S GROUP S GROUP GONORRHOE AE DIRECT PROBE TQ IADNA 62339 BIO BIO NEISSERIA 6 REFERNCE REFERNCE LABORATOR LABORATOR GONORRHOE IES IES AE AMPLIFIED PROBE TQ IADNA NOS 09707 BIO BIO 6 REFERNCE REFERNCE AMPLIFIED LABORATOR LABORATOR PROBE TQ IES IES EACH ORGANISM IADNA 24159 BIO BIO TRICHOMON 6 REFERNCE REFERNCE LABORATOR LABORATOR VAGINALIS IES IES AMPLIFIED PROBE TECH IADNA 55703 BIO BIO CHLAMYDIA 6 REFERNCE REFERNCE LABORATOR LABORATOR TRACHOMAT IES IES IS AMPLIFIED PROBE TQ URINLS 06529 [facility] DIP 6 PHYSICIAN SHASTA STICK/TAB S GROUP LET REAGNT NON-AUTO MICRSCPY INJECTION J0696 [facility] 6 PHYSICIAN EUG CEFTRIAXO S GROUP NE SODIUM PER 250 MG THERAPEUT 91539 [facility] IC 6 PHYSICIAN EUG PROPHYLAC S GROUP TIC/DX INJECTION SUBQ/IM CHIROPRAC 98096 [place] CANTRELL TIC 6 AMA MANIPLTV CHIROPRAC TX TIC CENTE EXTRASPIN AL 1/> REGION MANUAL 09847 [place] CANTRELL THERAPY 6 AMA TQS 1/> CHIROPRAC REGIONS TIC CENTE EACH 15 MINUTES CHIROPRAC 73890 [place] CANTRELL TIC 6 AMA MANIPULAT CHIROPRAC DOMINICK TX TIC CENTE SPINAL 3-4 REGIONS MRI UPPER 66133 [place] JACOB 6 MEDICAL EXTREMITY IMAGING OTH THAN ASS JT W/O CONTR MATRL APPL 64004 [place] CANTRELL MODALITY 6 AMA 1/> AREAS CHIROPRAC ELEC TIC CENTE STIMJ UNATTENDE D CHIROPRAC 86111 [place] CANTRELL TIC 6 AMA MANIPULAT CHIROPRAC DOMINICK TX TIC CENTE SPINAL 3-4 REGIONS MANUAL 29682 [place] CANTRELL THERAPY 6 AMA TQS 1/> CHIROPRAC REGIONS TIC CENTE EACH 15 MINUTES APPL 40201 [place] CANTRELL MODALITY 6 AMA 1/> AREAS CHIROPRAC TIC CENTE ULTRASOUN D EA 15 MIN APPL 00443 [place] CANTRELL MODALITY 6 AMA 1/> AREAS CHIROPRAC TIC CENTE ULTRASOUN D EA 15 MIN MANUAL 07895 [place] CANTRELL THERAPY 6 AMA TQS 1/> CHIROPRAC REGIONS TIC CENTE EACH 15 MINUTES CHIROPRAC 16790 [place] CANTRELL TIC 6 AMA MANIPULAT CHIROPRAC DOMINICK TX TIC CENTE SPINAL 3-4 REGIONS APPL 10131 [place] CANTRELL MODALITY 6 AMA 1/> AREAS CHIROPRAC ELEC TIC CENTE STIMJ UNATTENDE D THERAPEUT 08632 [facility] IC 6 PHYSICIAN PHYSICIAN PROPHYLAC S GROUP S GROUP TIC/DX INJECTION SUBQ/IM RADEX 78576 [facility] MAZARIEG[facility] ALL WRIST 2 6 MEDICAL VIEWS IMAGING ASS RADEX 97647 [place] MAZARIEG[facility] ALL HAND 2 6 MEDICAL VIEWS IMAGING ASS APPL 24154 [place] CANTRELL MODALITY 6 AMA 1/> AREAS CHIROPRAC ELEC TIC CENTE STIMJ UNATTENDE D CHIROPRAC 58284 [place] CANTRELL TIC 6 AMA MANIPULAT CHIROPRAC DOMINICK TX TIC CENTE SPINAL 3-4 REGIONS MANUAL 59223 [place] CANTRELL THERAPY 6 AMA TQS 1/> CHIROPRAC REGIONS TIC CENTE EACH 15 MINUTES APPL 30425 [place] CANTRELL MODALITY 6 AMA 1/> AREAS CHIROPRAC TIC CENTE ULTRASOUN D EA 15 MIN APPL 32361 [place] CANTRELL MODALITY 6 AMA 1/> AREAS CHIROPRAC TIC CENTE ULTRASOUN D EA 15 MIN MANUAL 12687 [place] CANTRELL THERAPY 6 AMA TQS 1/> CHIROPRAC REGIONS TIC CENTE EACH 15 MINUTES CHIROPRAC 84463 [place] CANTRELL TIC 6 AMA MANIPULAT CHIROPRAC DOMINICK TX TIC CENTE SPINAL 3-4 REGIONS APPL 53431 [place] CANTRELL MODALITY 6 AMA 1/> AREAS CHIROPRAC ELEC TIC CENTE STIMJ UNATTENDE D APPL 52307 [place] CANTRELL MODALITY 6 AMA 1/> AREAS CHIROPRAC ELEC TIC CENTE STIMJ UNATTENDE D CHIROPRAC 76620 [place] CANTRELL TIC 6 AMA MANIPULAT CHIROPRAC DOMINICK TX TIC CENTE SPINAL 3-4 REGIONS MANUAL 65185 [place] CANTRELL THERAPY 6 AMA TQS 1/> CHIROPRAC REGIONS TIC CENTE EACH 15 MINUTES APPL 12686 [place] CANTRELL MODALITY 6 AMA 1/> AREAS CHIROPRAC TIC CENTE ULTRASOUN D EA 15 MIN APPL 96408 [place] CANTRELL MODALITY 6 AMA 1/> AREAS CHIROPRAC TIC CENTE ULTRASOUN D EA 15 MIN MANUAL 20707 [place] CANTRELL THERAPY 6 AMA TQS 1/> CHIROPRAC REGIONS TIC CENTE EACH 15 MINUTES CHIROPRAC 95978 [place] CANTRELL TIC 6 AMA MANIPULAT CHIROPRAC DOMINICK TX TIC CENTE SPINAL 3-4 REGIONS APPL 82519 [place] CANTRELL MODALITY 6 AMA 1/> AREAS CHIROPRAC ELEC TIC CENTE STIMJ UNATTENDE D APPL 92786 [place] CANTRELL MODALITY 6 AMA 1/> AREAS CHIROPRAC ELEC TIC CENTE STIMJ UNATTENDE D THERAPEUT 74502 [place] CANTRELL IC PX 1/> 6 AMA AREAS CHIROPRAC EACH 15 TIC CENTE MIN EXERCISES CHIROPRAC 96262 [place] CANTRELL TIC 6 AMA MANIPULAT CHIROPRAC DOMINICK TX TIC CENTE SPINAL 3-4 REGIONS MANUAL 33753 [place] CANTRELL THERAPY 6 AMA TQS 1/> CHIROPRAC REGIONS TIC CENTE EACH 15 MINUTES APPL 89834 [place] CANTRELL MODALITY 6 AMA 1/> AREAS CHIROPRAC TIC CENTE ULTRASOUN D EA 15 MIN CHIROPRAC 12643 [place] CANTRELL TIC 6 AMA MANIPLTV CHIROPRAC TX TIC CENTE EXTRASPIN AL 1/> REGION CHIROPRAC 11014 [place] CANTRELL TIC 6 AMA MANIPLTV CHIROPRAC TX TIC CENTE EXTRASPIN AL 1/> REGION APPL 74274 [place] CANTRELL MODALITY 6 AMA 1/> AREAS CHIROPRAC TIC CENTE ULTRASOUN D EA 15 MIN MANUAL 10396 [place] CANTRELL THERAPY 6 AMA TQS 1/> CHIROPRAC REGIONS TIC CENTE EACH 15 MINUTES CHIROPRAC 36056 [place] CANTRELL TIC 6 AMA MANIPULAT CHIROPRAC DOMINICK TX TIC CENTE SPINAL 3-4 REGIONS APPL 40761 [place] CANTRELL MODALITY 6 AMA 1/> AREAS CHIROPRAC ELEC TIC CENTE STIMJ UNATTENDE D APPL 35918 [place] CANTRELL MODALITY 6 AMA 1/> AREAS CHIROPRAC TRACTION TIC CENTE MECHANICA L APPL 11448 [place] CANTRELL MODALITY 6 AMA 1/> AREAS CHIROPRAC TRACTION TIC CENTE MECHANICA L APPL 25649 [place] CANTRELL MODALITY 6 AMA 1/> AREAS CHIROPRAC ELEC TIC CENTE STIMJ UNATTENDE D CHIROPRAC 67320 [place] CANTRELL TIC 6 AMA MANIPULAT CHIROPRAC DOMINICK TX TIC CENTE SPINAL 3-4 REGIONS MANUAL 61230 [place] CANTRELL THERAPY 6 AMA TQS 1/> CHIROPRAC REGIONS TIC CENTE EACH 15 MINUTES APPL 77399 [place] CANTRELL MODALITY 6 AMA 1/> AREAS CHIROPRAC TIC CENTE ULTRASOUN D EA 15 MIN CHIROPRAC 34328 [place] CANTRELL TIC 6 AMA MANIPLTV CHIROPRAC TX TIC CENTE EXTRASPIN AL 1/> REGION CHIROPRAC 49837 [place] CANTRELL TIC 6 AMA MANIPLTV CHIROPRAC TX TIC CENTE EXTRASPIN AL 1/> REGION APPL 11575 [place] CANTRELL MODALITY 6 AMA 1/> AREAS CHIROPRAC TIC CENTE ULTRASOUN D EA 15 MIN MANUAL 16761 [place] CANTRELL THERAPY 6 AMA TQS 1/> CHIROPRAC REGIONS TIC CENTE EACH 15 MINUTES CHIROPRAC 79053 [place] CANTRELL TIC 6 AMA MANIPULAT CHIROPRAC DOMINICK TX TIC CENTE SPINAL 3-4 REGIONS APPL 15815 [place] CANTRELL MODALITY 6 AMA 1/> AREAS CHIROPRAC ELEC TIC CENTE STIMJ UNATTENDE D APPL 20773 [place] CANTRELL MODALITY 6 AMA 1/> AREAS CHIROPRAC TRACTION TIC CENTE MECHANICA L APPL 33094 [place] CANTRELL MODALITY 6 AMA 1/> AREAS CHIROPRAC TRACTION TIC CENTE MECHANICA L APPL 33533 [place] CANTRELL MODALITY 6 AMA 1/> AREAS CHIROPRAC ELEC TIC CENTE STIMJ UNATTENDE D CHIROPRAC 01271 [place] CANTRELL TIC 6 AMA MANIPULAT CHIROPRAC DOMINICK TX TIC CENTE SPINAL 3-4 REGIONS MANUAL 38773 [place] CANTRELL THERAPY 6 AMA TQS 1/> CHIROPRAC REGIONS TIC CENTE EACH 15 MINUTES APPL 42995 [place] CANTRELL MODALITY 6 AMA 1/> AREAS CHIROPRAC TIC CENTE ULTRASOUN D EA 15 MIN CHIROPRAC 04435 [place] CANTRELL TIC 6 AMA MANIPLTV CHIROPRAC TX TIC CENTE EXTRASPIN AL 1/> REGION APPL 65556 [place] CANT[facility]LL MODALITY 6 AMA 1/> AREAS CHIROPRAC TIC CENTE ULTRASOUN D EA 15 MIN CHIROPRAC 09598 [place] CANTRELL TIC 6 AMA MANIPLTV CHIROPRAC TX TIC CENTE EXTRASPIN AL 1/> REGION MANUAL 47193 [place] CANTRELL THERAPY 6 AMA TQS 1/> CHIROPRAC REGIONS TIC CENTE EACH 15 MINUTES CHIROPRAC 76674 [place] CANTRELL TIC 6 AMA MANIPULAT CHIROPRAC DOMINICK TX TIC CENTE SPINAL 3-4 REGIONS APPL 22630 [place] CANTRELL MODALITY 6 AMA 1/> AREAS CHIROPRAC ELEC TIC CENTE STIMJ UNATTENDE D APPL 98349 [place] CANTRELL MODALITY 6 AMA 1/> AREAS CHIROPRAC TRACTION TIC CENTE MECHANICA L RADEX 85060 [place] C[facility]LL SPINE 6 AMA LUMBOSACR CHIROPRAC AL 2/3 TIC CENTE VIEWS APPL 36382 [place] CANTRELL MODALITY 6 AMA 1/> AREAS CHIROPRAC TRACTION TIC CENTE MECHANICA L APPL 94053 [place] CANTRELL MODALITY 6 AMA 1/> AREAS CHIROPRAC ELEC TIC CENTE STIMJ UNATTENDE D CHIROPRAC 94571 [place] TIC 6 AMA MANIPULAT CHIROPRAC DOMINICK TX TIC CENTE SPINAL 3-4 REGIONS MANUAL 98546 [place] THERAPY 6 AMA TQS 1/> CHIROPRAC REGIONS TIC CENTE EACH 15 MINUTES CHIROPRAC 43567 [place] TIC 6 AMA MANIPLTV CHIROPRAC TX TIC CENTE EXTRASPIN AL 1/> REGION APPL 62073 [place] MODALITY 6 AMA 1/> AREAS CHIROPRAC TIC CENTE ULTRASOUN D EA 15 MIN APPL 49310 [place] MODALITY 6 AMA 1/> AREAS CHIROPRAC TIC CENTE ULTRASOUN D EA 15 MIN CHIROPRAC 83993 [place] TIC 6 AMA MANIPLTV CHIROPRAC TX TIC CENTE EXTRASPIN AL 1/> REGION MANUAL 37947 [place] THERAPY 6 AMA TQS 1/> CHIROPRAC REGIONS TIC CENTE EACH 15 MINUTES CHIROPRAC 24047 [place] TIC 6 AMA MANIPULAT CHIROPRAC DOMINICK TX TIC CENTE SPINAL 3-4 REGIONS APPL 24622 [place] MODALITY 6 AMA 1/> AREAS CHIROPRAC ELEC TIC CENTE STIMJ UNATTENDE D APPL 42399 [place] MODALITY 6 AMA 1/> AREAS CHIROPRAC TRACTION TIC CENTE MECHANICA L APPL 72736 [place] MODALITY 6 AMA 1/> AREAS CHIROPRAC ELEC TIC CENTE STIMJ UNATTENDE D APPL 98967 [place] MODALITY 6 AMA 1/> AREAS CHIROPRAC TRACTION TIC CENTE MECHANICA L CHIROPRAC 77096 [place] TIC 6 AMA MANIPULAT CHIROPRAC DOMINICK TX TIC CENTE SPINAL 3-4 REGIONS MANUAL 90540 [place] THERAPY 6 AMA TQS 1/> CHIROPRAC REGIONS TIC CENTE EACH 15 MINUTES CHIROPRAC 43261 [place] TIC 6 AMA MANIPLTV CHIROPRAC TX TIC CENTE EXTRASPIN AL 1/> REGION CHIROPRAC 96805 [place] TIC 6 AMA MANIPLTV CHIROPRAC TX TIC CENTE EXTRASPIN AL 1/> REGION MANUAL 84004 [place] THERAPY 6 AMA TQS 1/> CHIROPRAC REGIONS TIC CENTE EACH 15 MINUTES CHIROPRAC 21558 [place] TIC 6 AMA MANIPULAT CHIROPRAC DOMINICK TX TIC CENTE SPINAL 3-4 REGIONS APPL 85725 [place] MODALITY 6 AMA 1/> AREAS CHIROPRAC TRACTION TIC CENTE MECHANICA L APPL 36387 [place] MODALITY 6 1/> AREAS CHIROPRAC CHIROPRAC TRACTION TIC CENTE TIC CENTE MECHANICA L APPL 82522 [place] MODALITY 6 AMA 1/> AREAS CHIROPRAC ELEC TIC CENTE STIMJ UNATTENDE D THERAPEUT 65023 [place] IC PX 1/> 6 AMA AREAS CHIROPRAC EACH 15 TIC CENTE MIN EXERCISES CHIROPRAC 35917 [place] TIC 6 AMA MANIPULAT CHIROPRAC DOMINICK TX TIC CENTE SPINAL 3-4 REGIONS MANUAL 21322 [place] THERAPY 6 AMA TQS 1/> CHIROPRAC REGIONS TIC CENTE EACH 15 MINUTES CHIROPRAC 09133 [place] TIC 6 AMA MANIPLTV CHIROPRAC TX TIC CENTE EXTRASPIN AL 1/> REGION APPL 53684 [place] MODALITY 6 AMA 1/> AREAS CHIROPRAC TIC CENTE ULTRASOUN D EA 15 MIN APPL 16666 [place] MODALITY 6 AMA 1/> AREAS CHIROPRAC TIC CENTE ULTRASOUN D EA 15 MIN CHIROPRAC 13758 [place] TIC 6 AMA MANIPLTV CHIROPRAC TX TIC CENTE EXTRASPIN AL 1/> REGION MANUAL 11419 [place] THERAPY 6 AMA TQS 1/> CHIROPRAC REGIONS TIC CENTE EACH 15 MINUTES CHIROPRAC 62670 [place] TIC 6 AMA MANIPULAT CHIROPRAC DOMINICK TX TIC CENTE SPINAL 3-4 REGIONS APPL 55646 [place] MODALITY 6 1/> AREAS CHIROPRAC CHIROPRAC ELEC TIC CENTE TIC CENTE STIMJ UNATTENDE D APPL 80112 [place] MODALITY 6 AMA 1/> AREAS CHIROPRAC TRACTION TIC CENTE MECHANICA L APPL 18881 [place] MODALITY 6 1/> AREAS CHIROPRAC CHIROPRAC TRACTION TIC CENTE TIC CENTE MECHANICA L APPL 66923 [place] MODALITY 6 AMA 1/> AREAS CHIROPRAC ELEC TIC CENTE STIMJ UNATTENDE D CHIROPRAC 22644 [place] TIC 6 AMA MANIPULAT CHIROPRAC DOMINICK TX TIC CENTE SPINAL 3-4 REGIONS MANUAL 06838 [place] THERAPY 6 AMA TQS 1/> CHIROPRAC REGIONS TIC CENTE EACH 15 MINUTES CHIROPRAC 88165 [place] TIC 6 AMA MANIPLTV CHIROPRAC TX TIC CENTE EXTRASPIN AL 1/> REGION APPL 70730 [place] MODALITY 6 AMA 1/> AREAS CHIROPRAC TIC CENTE ULTRASOUN D EA 15 MIN APPL 60393 [place] [place] MODALITY 6 1/> AREAS CHIROPRAC CHIROPRAC TIC CENTE TIC CENTE ULTRASOUN D EA 15 MIN CHIROPRAC 20022 [place]ITY[place]WN BURDICKEL PRA TIC 6 MANIPLTV CHIROPRAC TX TIC CENTE EXTRASPIN AL 1/> REGION MANUAL 97510 [place] CANTRELL THERAPY 6 AMA TQS 1/> CHIROPRAC REGIONS TIC CENTE EACH 15 MINUTES CHIROPRAC 72215 [place] CANTRELL TIC 6 AMA MANIPULAT CHIROPRAC DOMINICK TX TIC CENTE SPINAL 3-4 REGIONS APPL 08637 [place] CANTRELL MODALITY 6 AMA 1/> AREAS CHIROPRAC ELEC TIC CENTE STIMJ UNATTENDE D APPL 39881 [place] CANTRELL MODALITY 6 AMA 1/> AREAS CHIROPRAC TRACTION TIC CENTE MECHANICA L APPL 81566 [place] MODALITY 6 1/> AREAS CHIROPRAC CHIROPRAC TRACTION TIC CENTE TIC CENTE MECHANICA L APPL 15674 [place] CANTRELL MODALITY 6 AMA 1/> AREAS CHIROPRAC ELEC TIC CENTE STIMJ UNATTENDE D CHIROPRAC 00685 [place] CANTRELL TIC 6 AMA MANIPULAT CHIROPRAC DOMINICK TX TIC CENTE SPINAL 3-4 REGIONS MANUAL 11903 [place] CANTRELL THERAPY 6 AMA TQS 1/> CHIROPRAC REGIONS TIC CENTE EACH 15 MINUTES CHIROPRAC 48348 [place] CANTRELL TIC 6 AMA MANIPLTV CHIROPRAC TX TIC CENTE EXTRASPIN AL 1/> REGION MANUAL 92604 [place] CANTRELL THERAPY 6 AMA TQS 1/> CHIROPRAC REGIONS TIC CENTE EACH 15 MINUTES CHIROPRAC 57213 [place] CANTRELL TIC 6 AMA MANIPULAT CHIROPRAC DOMINICK TX TIC CENTE SPINAL 3-4 REGIONS APPL 11226 [place] CANTRELL MODALITY 6 AMA 1/> AREAS CHIROPRAC ELEC TIC CENTE STIMJ UNATTENDE D CHIROPRAC 14716 [place] CANTRELL TIC 6 AMA MANIPLTV CHIROPRAC TX TIC CENTE EXTRASPIN AL 1/> REGION APPL 86372 [place] MODALITY 6 1/> AREAS CHIROPRAC CHIROPRAC TRACTION TIC CENTE TIC CENTE MECHANICA L APPL 70340 [place] CANTRELL MODALITY 6 AMA 1/> AREAS CHIROPRAC TRACTION TIC CENTE MECHANICA L CHIROPRAC 71687 [place] CANTRELL TIC 6 AMA MANIPLTV CHIROPRAC TX TIC CENTE EXTRASPIN AL 1/> REGION APPL 45831 [place] CANTRELL MODALITY 6 AMA 1/> AREAS CHIROPRAC ELEC TIC CENTE STIMJ UNATTENDE D CHIROPRAC 44810 [place] CANTRELL TIC 6 AMA MANIPULAT CHIROPRAC DOMINICK TX TIC CENTE SPINAL 3-4 REGIONS MANUAL 61991 [place] CANTRELL THERAPY 6 AMA TQS 1/> CHIROPRAC REGIONS TIC CENTE EACH 15 MINUTES MANUAL 59715 [place] CANTRELL THERAPY 6 AMA TQS 1/> CHIROPRAC REGIONS TIC CENTE EACH 15 MINUTES CHIROPRAC 48404 [place] CANTRELL TIC 6 AMA MANIPULAT CHIROPRAC DOMINICK TX TIC CENTE SPINAL 3-4 REGIONS APPL 42851 [place] CANTRELL MODALITY 6 AMA 1/> AREAS CHIROPRAC ELEC TIC CENTE STIMJ UNATTENDE D CHIROPRAC 43152 [place] CANTRELL TIC 6 AMA MANIPLTV CHIROPRAC TX TIC CENTE EXTRASPIN AL 1/> REGION APPL 75050 [place] CANTRELL MODALITY 6 AMA 1/> AREAS [place] [address] [place] CANTRELL 1/> AREAS 6 AMA EACH 15 CHIROPRAC [place] [address] [place] CANTRELL 1/> AREAS 6 AMA EACH 15 CHIROPRAC MIN TIC CENTE NEUROMUSC REEDUCA APPL 52218 [place] CANTRELL MODALITY 6 AMA 1/> AREAS CHIROPRAC TRACTION TIC CENTE MECHANICA L CHIROPRAC 59064 [place] CANTRELL TIC 6 AMA MANIPLTV CHIROPRAC TX TIC CENTE EXTRASPIN AL 1/> REGION APPL 24088 [place] CANTRELL MODALITY 6 AMA 1/> AREAS CHIROPRAC ELEC TIC CENTE STIMJ UNATTENDE D CHIROPRAC 11449 [place] CANTRELL TIC 6 AMA MANIPULAT CHIROPRAC DOMINICK TX TIC CENTE SPINAL 3-4 REGIONS MANUAL 72016 [place] CANTRELL THERAPY 6 AMA TQS 1/> CHIROPRAC REGIONS TIC CENTE EACH 15 MINUTES IAADIADOO 23399 ALEVISM SHANIKA 6 [facility] GROUP A BLOOD 21220 ANTONIO ALVAREZ COUNT 6 [facility] COMPLETE INC INC AUTO&[place] [address] ANTONIO ALVAREZ THYROXINE 6 [facility] TOTAL INC INC ANTINUCLE 27953 ANTONIO ALVAREZ AR 6 [facility] ANTIBODIE INC INC S TYSHAWN COMPREHEN 72526 ANTONIO ALVAREZ SIVE 6 [facility] METABOLIC INC INC PANEL C-REACTIV 12528 ANTONIO ALVAREZ E PROTEIN 6 [facility] INC INC DNA 81966 ANTONIO ALVAREZ ANTIBODY 6 [facility] [place]/DO INC INC UBLE STRANDED COLLECTIO 17566 [facility] N VENOUS 6 PHYSICIAN STONE BLOOD S GROUP PA-Zule[place] [address] ANTONIO ALVAREZ THYROID 6 [facility] STIMULATI INC INC NG HORMONE TSH SEDIMENTA 12540 ANTONIO ALVAREZ TIDIAZ RATE 6 [facility] RBC INC INC NON-AUTOM ATED 25 21909 ANTONIO ALVAREZ HYDROXY 6 [facility] INCLUDES INC INC FRACTIONS IF PERFORMED CREATINE 44409 ANTONIO ALVAREZ KINASE 6 [facility] TOTAL INC INC OPHTH 58973 [facility] 6 GRE GRE XM&EVAL COMPRE NEW PT 1/> VST THERAPEUT 16564 [facility] IC 6 PHYSICIAN HUGH PROPHYLAC S GROUP TIC/DX INJECTION SUBQ/IM INJECTION J1040 [facility] HUGH METHYLPRE S GROUP DNISOLONE ACETATE 80 MG INJECTION J0696 [facility] CEFTRIAXO S GROUP NE SODIUM PER 250 MG INJECTION J0696 [facility] 6 [facility]YSICIAN HUGH CEFTRIAXO S GROUP NE SODIUM PER 250 MG INJECTION J1040 [facility] 6 PHYSICIAN HUGH METHYLPRE S GROUP DNISOLONE ACETATE 80 MG THERAPEUT 01979 [facility] IC 6 PHYSICIAN HUGH PROPHYLAC S GROUP TIC/DX INJECTION SUBQ/IM THERAPEUT [address] IC 6 [facility] TIC/DX INJECTION SUBQ/IM INJECTION J[address] 6 [facility] SONE SODIUM PHOSPHATE 1 MG INJECTION J0561 ANTONIO [facility] 6 [facility] N G BENZATHIN E 084206 UNITS TOTAL 90699 [facility] ABDOMINAL 5 PHYSICIAN CAM S GROUP HYSTERECT W/WO RMVL TUBE OVARY ANESTHESI 05246 [facility] JADEN A 5 ANESTH INTRAPERI OF THE TONEAL BLUE LOWER ABD W/[place] L[place] [address] [facility], PICKLESIM SURG 5 [facility] PATHOLOGY GROSS&HUGH ROSCOPIC EXAM COLLECTIO 95026 ANTONIO ALVAREZ N VENOUS 5 [facility] BLOOD INC INC VENIPUNCT URE GONADOTRO 70760 ANTONIO ALVAREZ PIN 5 [facility] CHORIONIC INC INC QUALITATI VE CULTURE 98603 ANTONIO ALVAREZ BACTERIAL 5 [facility] INC INC QUANTTATI VE COLONY COUNT URINE BLOOD 79179 ANTONIO ALVAREZ COUNT 5 [facility] COMPLETE INC INC AUTO&AUTO DIFRNTL WBC URNLS DIP 14504 ANTONIO ALVAREZ 5 [facility] STICK/TAB INC INC LET REAGENT AUTO MICROSCOP Y SUSCEPTIB 75560 ANTONIO ALVAREZ LTY STDY 5 [facility] ANTIMICRB INC INC IAL MICRO/AGA R DILUTJ SMR PRIM 09962 ROSIBEL ROMAN SRC WET 5 JESSIE VEGAS [facility] [place] [place] [address] ANTONIO ALVAREZ TRANSVAGI 5 [facility] NAL INC INC URINLS 73998 ROSIBEL ROMAN DIP 5 JESSIE VEGAS STICK/TAB [place] [address] EMMIE SALEEM 1/> AREAS 5 GAR EACH 15 CHIROPRAC MIN TIC CENTE NEUROMUSC REEDUCA APPL 38926 EMMIE SALEEM MODALITY 5 GAR 1/> AREAS CHIROPRAC TRACTION TIC CENTE MECHANICA L CHIROPRAC 81935 EMMIE SALEEM TIC 5 GAR MANIPLTV CHIROPRAC TX TIC CENTE EXTRASPIN AL 1/> REGION CHIROPRAC 22960 EMMIE SALEEM TIC 5 GAR MANIPULAT CHIROPRAC DOMINICK TX TIC CENTE SPINAL 1-2 REGIONS CHIROPRAC 55176 EMMIE SALEEM TIC 5 GAR MANIPLTV CHIROPRAC TX TIC CENTE EXTRASPIN AL 1/> REGION CHIROPRAC 43437 EMMIE SALEEM TIC 5 GAR MANIPULAT CHIROPRAC DOMINICK TX TIC CENTE SPINAL 1-2 [place] [address] EMMIE SALEEM 1/> AREAS 5 GAR EACH 15 CHIROPRAC MIN [place] [address] EMMIE SALEEM 1/> AREAS 5 GAR EACH 15 [place] [address] EMMIE SALEEM 1/> AREAS 5 GAR EACH 15 CHIROPR[place] [address] EMMIE SALEEM 1/> AREAS 5 GAR EACH 15 CHIROPRAC MIN TIC CENTE NEUROMUSC REEDUCA CHIROPRAC 88430 EMMIE SALEEM TIC 5 GAR MANIPULAT CHIROPRAC DOMINICK TX TIC CENTE SPINAL 1-2 REGIONS URNLS DIP 92628 ANTONIO BELTRAN 5 [facility] LET RGNT NON-AUTO W/O MICRSCP COMPREHEN 57716 ANTONIO NICHOLSONE 5 [facility] METABOLIC INC INC PANEL COLLECTIO 71638 ANTONIO Cevallos VENOUS 5 [facility] BLOOD INC INC VENIPUNCT URE BLOOD 13157 ANTONIO ALVAREZ COUNT 5 [facility] COMPLETE INC INC AUTO&AUTO DIFRNTL WBC URNLS DIP 81288 ANTONIO ALVAREZ 5 [facility] STICK/TAB INC INC LET REAGENT AUTO MICROSCOP Y URNLS DIP 53306 ANTONIO ALVAREZ 5 [facility] STICK/TAB INC INC LET REAGENT AUTO MICROSCOP Y BLOOD 00843 ANTONIO ALVAREZ COUNT 5 [facility] COMPLETE INC INC AUTO&[place] [address] [place] ABDOMEN & 5 MEDICAL ARELY PELVIS IMAGING W/O ASS CONTRAST MATERIAL COMPREHEN 87921 ANTONIO ALVAREZ SIVE 5 [facility] METABOLIC INC INC PANEL COMPREHEN 54963 ANTONIO ALVAREZ SIVE 5 [facility] METABOLIC INC INC PANEL IMMUNOASS 34340 ANTONIO ALVAREZ AY NFCT 5 [facility] AGT ANTB INC INC QUAL/SEMI ANGIE 1 STEP BLOOD 77372 ANTONIO ALVAREZ COUNT 5 [facility] COMPLETE INC INC AUTO&[place] [address] ANTONIO ALVAREZ INFUSION 5 [facility] THERAPY/P INC INC ROPHYLAXI S /DX 1ST TO 1 HR UNCLASSIF J3490 ANTONIO ALVAREZ IED DRUGS 5 [facility] INC INC HGB 91721 ROSIBEL ROMAN QUANTITAT 5 JESSIE VEGAS DOMINICK TRANSCUTA NEOUS SMR PRIM 33522 ROSIBEL ROMAN SRC WET 5 JESSIE VEGAS [facility] NFCT AGT UNCLASSIF J3490 ANTONIO ALVAREZ IED DRUGS 5 [place] [address] ANTONIO ALVAREZ INFUSION 5 [facility] THERAPY INC INC PROPHYLAX IS/DX EA HOUR BLOOD 78065 ANTONIO ALVAREZ COUNT 5 [facility] HEMOGLOBI INC INC N DILATION 84228 ANTONIO UGARTEON & 5 [facility] CURETTAGE INC INC DX&/THER NONOBSTET JACQUI ANESTHESI 45333 [facility] VAGINAL 5 ANESTH LUCERO OF THE PROCEDURE BLUE W/BIOPSY NOS INJECTION J2405 ANTONIODIAZ ALVAREZ 5 [facility] ONDANSETR INC INC ON HCL PER 1 MG BLOOD 64520 ANTONIO ALVAREZ COUNT 5 [facility] HEMATOCRI INC INC T COLLECTIO 69107 ANTONIO ALVAREZ N VENOUS 5 [facility] [place] [address] [facility], [facility] LABS, SURG 5 [facility] PATHOLOGY GROSS&HUGH ROSCOPIC EXAM COLLECTIO 09257 ANTONIO ALVAREZ N VENOUS 5 [facility] BLOOD INC INC VENIPUNCT URE BLOOD 03700 ANTONIO ALVAREZ COUNT 5 [facility] COMPLETE INC INC AUTO&AUTO DIFRNTL WBC URINE 99184 ANTONIO ALVAREZ 5 [facility] TEST INC INC VISUAL COLOR CMPRSN METHS CULTURE 96509 ANTONIO ALVAREZ BACTERIAL 5 [facility] INC INC QUANTTATI VE COLONY COUNT URINE URNLS DIP 69267 ANTONIO ANTONIO 5 [facility] STICK/TAB INC [place] [address] [facility] TRANSVAGI 5 [facility]ICAL [facility] NAL IMAGING ASS BLOOD 02736 ANTONIO ANTONIO COUNT 5 [facility] COMPLETE INC INC AUTO&AUTO DIFRNTL WBC COLLECTIO 60988 ANTONIO ALVAREZ N VENOUS 5 [facility] BLOOD INC INC VENIPUNCT URE SCREENING G0202 ANTONIO ALVAREZ 5 [facility] MAMMOGRAP INC INC HY MICHELE INCL CAD WHEN PERFORMD COMPUTER- 31030 ANTONIO ALVAREZ AIDED [address] [facility] DETECTION INC INC SCREENING MAMMOGRAP HY Encounters Encounter Start End Date Code Location Performer Type Date EMERGENCY 40909 [facility] DEY DEPT 7 7 PHYSICIAN VISIT S, [facility] HIGH SEVERITY& THREAT [facility] - 7 7 [facility] OUTPATIEN INC T OFFICE 22629 [facility] 7 7 PHYSICIAN T VISIT S GROUP 15 MINUTES OFFICE 90509 [facility] OUT[facility] 7 7 PHYSICIAN T VISIT S GROUP 25 MINUTES [facility] ANTONIO - 7 7 [facility] OUTPATIEN INC T OFFICE 30012 [facility] OUTPATIEN 7 7 PHYSICIAN T VISIT S GROUP 15 MINUTES OFFICE 19706 ANTONIO OUTPATIEN 7 7 [facility] T VISIT 5 INC MINUTES [facility] ANTONIO - 7 7 [facility] OUTPATIEN INC T OFFICE 04009 [facility] OUTPATI[facility] 7 7 PHYSICIAN T VISIT S GROUP 25 MINUTES OFFICE 59623 [facility] OUT[facility] 7 7 PHYSICIAN T VISIT S GROUP 25 MINUTES OFFICE 54522 [facility] OUTPATI[facility] 7 7 PHYSICIAN T VISIT S GROUP 25 MINUTES OFFICE 18803 [facility] OUT[facility] 6 6 PHYSICIAN T VISIT S GROUP 15 MINUTES OFFICE 21386 [facility] [place] OUTPATIEN 6 6 PHYSICIAN T VISIT S GROUP 15 MINUTES OFFICE 97319 [facility] OUTPATIEN 6 6 PHYSICIAN T VISIT S GROUP 25 MINUTES [facility]OSPITAL ANTONIO - 6 6 [facility] OUTPATIEN INC T PERIODIC 97900 [facility] PREVENTIV 6 6 PHYSICIAN SHASTA E MED EST S GROUP PATIENT 40-64YRS OFFICE 19057 [facility] OUTPATIEN 6 6 PHYSICIAN EUG T VISIT S GROUP 15 MINUTES [facility]OSPITAL ANTONIO - 6 6 [facility] OUTPATIEN INC T OFFICE 47263 [facility] OUTPATIEN 6 6 PHYSICIAN T NEW 30 S GROUP MINUTES [facility]OSPITAL ANTONIO - 6 6 [facility] OUTPATIEN INC T OFFICE 90649 [facility] OUTPATIEN 6 6 PHYSICIAN EUG T VISIT S GROUP 15 MINUTES OFFICE 53886 [facility] [place] OUTPATIEN 6 6 PHYSICIAN T VISIT GROUP 25 MINUTES OFFICE 57879 JOSÉTHITYSHAWN HUFFELL OUTPATIEN 6 6 AMA T VISIT CHIROPRAC 15 TIC CENTE MINUTES OFFICE 53608 [facility] OUTPATIEN 6 6 PHYSICIAN T VISIT GROUP 15 MINUTES EMERGENCY 71417 ALYSIA VILLALOBOS [facility] 6 6 PHYSICIAN DEPARTMEN S, PLLC T VISIT MODERATE SEVERITY OFFICE 90051 EMMIE HUFFELL OUTPATIEN 6 6 AMA T VISIT CHIROPRAC 15 TIC CENTE MINUTES HOSPITAL ANTONIO - 6 6 [facility] OUTPATIEN INC T EMERGENCY 35598 ANTONIO 6 6 [facility] DEPARTMEN INC T VISIT LOW/MODER SEVERITY OFFICE 33568 ANTONIO ALMONTE OUTPATIEN 6 6 [facility] T VISIT HOSPITAL 25 MINUTES OFFICE 03437 ALEVISM SHANIKA OUTPATIEN 6 6 [facility] T VISIT MEDICAL 15 GROUP MINUTES HOSPITAL ANTONIO - 6 6 [facility] OUTPATIEN INC T OFFICE 13967 [facility] OUTPATIEN 6 6 PHYSICIAN STONE T VISIT S GROUP PA-Zuleyma CORBIN 25 MINUTES OFFICE 18236 ROSIBEL ROMAN OUTPATIEN 6 6 JESSIE BOTELLO SHASTA T VISIT 15 MINUTES OFFICE 03529 [facility] JE[facility] OUTPATIEN 6 6 PHYSICIAN HUGH T VISIT S GROUP 15 MINUTES OFFICE 87565 [facility] JE[facility] OUTPATIEN 6 6 PHYSICIAN HUGH T VISIT S GROUP 15 MINUTES OFFICE 60702 ANTONIO EASLEY OUTPATIEN 6 6 [facility] VISIT HOSPITAL 15 MINUTES HOSPITAL ANTONIO - 5 6 [facility] INPATIENT [facility] ANTONIO - 5 5 [facility] OUTPATIEN INC T OFFICE 92070 ROSIBEL ROMAN OUTPATIEN 5 5 JESSIE VEGAS T VISIT 15 MINUTES HOSPITAL ANTONIO - 5 5 [facility] OUTPATIEN INC T OFFICE 89655 ROSIBEL ROMAN OUTPATIEN 5 5 JESSIE BOTELLO SHASTA T VISIT 25 MINUTES OFFICE 06596 EMMIE SALEEM OUTPATIEN 5 5 [facility] VISIT CHIROP[facility] 10 TIC CENTE MINUTES OFFICE 40656 ANTONIO BELTRAN OUTPATIEN 5 5 [facility] VISIT [facility] 15 MINUTES [facility] ANTONIO - 5 5 [facility] OUTPATIEN INC T EMERGENCY 15390 ANTONIO 5 5 [facility] DEPARTMEN INC T VISIT MODERATE SEVERITY EMERGENCY 89878 ALYSIA TERAN 5 5 [facility] T VISIT HIGH/URGE NT SEVERITY HOSPITAL ANTONIO - 5 5 [facility] OUTPATIEN [facility] T EMERGENCY 71573 ANTONIO Apodaca 5 5 [facility] T VISIT P MODERATE SEVERITY EMERGENCY 38592 ANTONIO 5 5 MEM [facility] T VISIT HIGH/URGE NT SEVERITY HOSPITAL ANTONIO - 5 5 [facility] OUTPATIEN [facility] T OFFICE 79245 ROSIBEL ROMAN OUTPATIEN 5 5 JESSIE VEGAS T VISIT 15 MINUTES HOSPITAL ANTONIO - 5 5 [facility] OUTPATIEN INC [facility]OSPITAL ANTONIO - 5 5 [facility] OUTPATIEN [facility] T OFFICE 44152 ROSIBEL ROMAN OUTPATIEN 5 5 JESSIE VEGAS T VISIT 15 MINUTES OFFICE 11399 ROSIBEL ROMAN OUTPATIEN 5 5 JESSIE VEGAS T VISIT 15 MINUTES HOSPITAL ANTONIO - 5 5 [facility] OUTPATIEN INC T OFFICE 64374 ROSIBEL ROMAN OUTPATIDWIGHT 5 5 JESSIE VEGAS T VISIT 15 MINUTES HOSPITAL ANTONIO - 5 5 [facility] OUTPATIEN INC T
--- OUTSIDE RECORDS SUMMARY | 2017-01-12 09:58 | External Medical Summary Rpt ---
Demographics Preferred Language Maori Marital Status Unknown Denominational Affiliation Unknown Race Unknown Ethnic Group Unknown Author Author OMAIRA Address Unknown Phone Immunization No patient found.
--- OUTSIDE RECORDS SUMMARY | 2017-01-12 09:58 | External Medical Summary Rpt ---
Author Author [employer], [employer] Organization [employer] Address Unknown Phone Unavailable Results Basic metabolic panel in Blood Observa Value Referen Units Interpr Notes Date tion ce etation Range Urea 7 - 18 mg/dL No No Dec 02 nitrogen informati informati 2017 6:05 [Mass/vol on in on in AM ume] in source source Serum or data data Plasma Calcium 8.5 - mg/dL Normal No Dec 02 [Mass/vol 10.1 informati 2016 6:05 ume] in on in AM Serum or source Plasma data Chloride 98 - 107 mmoL/L Normal No Dec 02 [Moles/vo informati 2016 6:05 lume] in on in AM Serum or source Plasma data Carbon 21.0 - mmoL/L Normal No Dec 02 dioxide, 32.0 informati 2017 6:05 total on in AM [Moles/vo source lume] in data Serum or Plasma Creatinin 0.55 - mg/dL Normal No Dec 02 e 1.02 informati 2017 6:05 [Mass/vol on in AM ume] in source Serum or data Plasma Creatinin 50 - 200 ML/MIN High No Dec 02 e renal informati 2017 6:05 clearance on in AM source predicted data by Cockcroft -Gault formula Estimated 59- ML/MIN No REFERENCE Dec 02 informati RANGE: 2017 6:05 glomerula on in >60 AM r source ML/MIN/1. filtratio data 73 SQUARE n rate METERSIf (GF this patient is -A merican, then multiply theresult by 1.210. Glucose 74 - 106 mg/dL High No Dec 02 [Mass/vol informati 2016 6:05 ume] in on in AM Serum or source Plasma data Potassium 3.5 - 5.1 mmoL/L Low No Dec 02 informati 2017 6:05 [Moles/vo on in AM lume] in source Serum or data Plasma Sodium 136 - 145 mmoL/L Low No Dec 02 [Moles/vo informati 2017 6:05 lume] in on in AM Serum or source Plasma data CBC W Auto Differential panel in Blood Observa Value Referen Units Interpr Notes Date tion ce etation Range Basophils 0 - 0.2 K/MM3 Normal No Dec 02 informati 2016 6:05 [#/volume on in AM ] in source Blood by data Automated count Basophils 0.1 - 2.0 % Normal No Dec 02 /100 informati 2017 6:05 leukocyte on in AM s in source Blood by data Automated count Eosinophi 0.0 - 0.4 K/mm3 Normal No Dec 02 ls informati 2016 6:05 [#/volume on in AM ] in source Blood by data Automated count Eosinophi 0.1 - % Normal No Dec 02 ls/100 12.0 informati 2017 6:05 leukocyte on in AM s in source Blood by data Automated count Granulocy 1.8 - 7.8 K/mm3 Normal No Dec 02 mick informati 2016 6:05 [#/volume on in AM ] in source Blood by data Automated count Granulocy 37.0 - % Normal No Dec 02 mick/100 80.0 informati 2016 6:05 leukocyte on in AM s in source Blood by data Automated count Hematocri 37.0 - % Low No Dec 02 t [Volume 47.0 informati 2016 6:05 on in AM Fraction] source of Blood data Hemoglobi 12.2 - g/dL Low No Dec 02 n 16.2 informati 2017 6:05 [Mass/vol on in AM ume] in source Blood data Lymphocyt 0.7 - 4.5 K/mm3 Normal No Dec 02 es informati 2017 6:05 [#/volume on in AM ] in source Unspecifi data ed specimen by Automated count Lymphocyt 10 - 50.0 % Normal No Dec 02 es informati 2017 6:05 [#/volume on in AM ] in source Unspecifi data ed specimen by Automated count Erythrocy 27 - 31.2 pg Normal No Dec 02 te mean informati 2017 6:05 corpuscul on in AM ar source hemoglobi data n [Entitic mass] Erythrocy 31.8 - g/dl Normal No Dec 02 te mean 35.4 informati 2017 6:05 corpuscul on in AM ar source hemoglobi data n concentra tion [Mass/vol ume] by Automated count Erythrocy 82.2 - fl Normal No Dec 02 te mean 97.8 informati 2016 6:05 corpuscul on in AM ar volume source [Entitic data volume] by Automated count Monocytes 0.1 - 1.0 K/mm3 Normal No Dec 02 informati 2016 6:05 [#/volume on in AM ] in source Blood by data Automated count Monocytes 1.7 - 9.3 % Normal No Dec 1 /100 informati 2017 6:05 leukocyte on in AM s in source Blood by data Automated count Platelet 7.4 - fl Normal No Dec 02 mean 10.4 informati 2016 6:05 volume on in AM [Entitic source volume] data in Blood by Automated count Platelets 142 - 424 K/mm3 Normal No Dec 02 informati 2016 6:05 [#/volume on in AM ] in source Blood data Erythrocy 4.2 - 5.4 M/mm3 Low No Dec 02 mick informati 2016 6:05 [#/volume on in AM ] in source Amniotic data fluid Erythrocy 11.5 - % Normal No Dec 02 te 17.5 informati 2016 6:05 distribut on in AM ion width source [Entitic data volume] by Automated count Leukocyte 4.8 - K/MM3 No Dec 02 s 10.8 informati informati 2017 6:05 [#/volume on in on in AM ] in source source Blood data data Free T4 & TSH panel in Serum or Plasma Observa Value Referen Units Interpr Notes Date tion ce etation Range Thyroxine 5.93 - ug/dl Normal No Dec 01 (T4) 13.13 informati 2016 2:37 free on in PM index in source Serum or data Plasma Triiodoth 31 - 39 % Normal No Dec 01 yronine informati 2016 2:37 (T3) on in PM resin source uptake in data Serum or Plasma Thyroxine 4.7 - ug/dl Normal No Dec 01 (T4) 13.3 informati 2016 2:37 [Mass/vol on in PM ume] in source Serum or data Plasma Thyrotrop 0.358 - uIU/ml Normal No Dec 01 in 3.740 informati 2016 2:37 [Units/vo on in PM lume] in source Serum or data Plasma CBC W Auto Differential panel in Blood Observa Value Referen Units Interpr Notes Date tion ce etation Range Basophils 0 - 0.2 K/MM3 Normal No Dec 01 informati 2016 1:25 [#/volume on in PM ] in source Blood by data Automated count Basophils 0.1 - 2.0 % Normal No Nov 30 /100 informati 2016 1:25 leukocyte on in PM s in source Blood by data Automated count Eosinophi 0.0 - 0.4 K/mm3 Normal No Nov 30 ls informati 2016 1:25 [#/volume on in PM ] in source Blood by data Automated count Eosinophi 0.1 - % Normal No Dec 01 ls/100 12.0 informati 2016 1:25 leukocyte on in PM s in source Blood by data Automated count Granulocy 1.8 - 7.8 K/mm3 Normal No Dec 01 mick informati 2016 1:25 [#/volume on in PM ] in source Blood by data Automated count Granulocy 37.0 - % Normal No Dec 01 mick/100 80.0 informati 2016 1:25 leukocyte on in PM s in source Blood by data Automated count Hematocri 37.0 - % Low No Dec 01 t [Volume 47.0 informati 2016 1:25 on in PM Fraction] source of Blood data Hemoglobi 12.2 - g/dL Low No Dec 01 n 16.2 informati 2016 1:25 [Mass/vol on in PM ume] in source Blood data Lymphocyt 0.7 - 4.5 K/mm3 Normal No Dec 01 es informati 2016 1:25 [#/volume on in PM ] in source Unspecifi data ed specimen by Automated count Lymphocyt 10 - 50.0 % Normal No Dec 01 es inform2016 1:25 [#/volume on in PM ] in source Unspecifi data ed specimen by Automated count Erythrocy 27 - 31.2 pg Normal No Dec 01 te mean informati 2016 1:25 corpuscul on in PM ar source hemoglobi data n [Entitic mass] Erythrocy 31.8 - g/dl Normal No Dec 01 te mean 35.4 informati 2016 1:25 corpuscul on in PM ar source hemoglobi data n concentra tion [Mass/vol ume] by Automated count Erythrocy 82.2 - fl Low No Dec 01 te mean 97.8 informati 2016 1:25 corpuscul on in PM ar volume source [Entitic data volume] by Automated count Monocytes 0.1 - 1.0 K/mm3 Normal No Dec 01 inform2016 1:25 [#/volume on in PM ] in source Blood by data Automated count Monocytes 1.7 - 9.3 % Normal No Nov 30 /100 informati 2017 1:25 leukocyte on in PM s in source Blood by data Automated count Platelet 7.4 - fl Normal No Nov 30 mean 10.4 informati 2016 1:25 volume on in PM [Entitic source volume] data in Blood by Automated count Platelets 142 - 424 K/mm3 Normal No Nov 30 informati 2016 1:25 [#/volume on in PM ] in source Blood data Erythrocy 4.2 - 5.4 M/mm3 Normal No Nov 30 mick informati 2017 1:25 [#/volume on in PM ] in source Amniotic data fluid Erythrocy 11.5 - % Normal No Dec 01 te 17.5 informati 2016 1:25 distribut on in PM ion width source [Entitic data volume] by Automated count Leukocyte 4.8 - K/MM3 Normal No Nov 30 s 10.8 informati 2016 1:25 [#/volume on in PM ] in source Blood data Natriutietic peptide B [Mass/volume] in Serum or Plasma Observa Value Referen Units Interpr Notes Date tion ce etation Range Natriutie 0 - 100 pg/mL Normal No Nov 15 tic informati 2016 3:25 peptide B on in PM source [Mass/vol data ume] in Serum or Plasma Comprehensive metabolic 2000 panel in Serum or Plasma Observa Value Referen Units Interpr Notes Date tion ce etation Range Albumin/G 1.1 - 1.8 No Normal No Nov 16 lobulin informati informati 2016 3:25 [Mass on in on in PM ratio] in source source Serum or data data Plasma Albumin 3.4 - 5.0 gm/dL Normal No Nov 16 [Mass/vol informati 2016 3:25 ume] in on in PM Serum or source Plasma data Alkaline 46 - 116 U/L Normal No Nov 16 phosphata informati 2017 3:25 se on in PM [Enzymati source c data activity/ volume] in Serum or Plasma Bilirubin 0.2 - 1.0 mg/dL Normal No Nov 15 .total informati 2017 3:25 [Mass/vol on in PM ume] in source Serum or data Plasma Urea 7 - 18 mg/dL Normal No Nov 16 nitrogen informati 2017 3:25 [Mass/vol on in PM ume] in source Serum or data Plasma Calcium 8.5 - mg/dL Normal No Nov 16 [Mass/vol 10.1 inform2016 3:25 ume] in on in PM Serum or source Plasma data Chloride 98 - 107 mmoL/L Normal No Nov 15 [Moles/vo informati 2016 3:25 lume] in on in PM Serum or source Plasma data Carbon 21.0 - mmoL/L Normal No Nov 16 dioxide, 32.0 informati 2016 3:25 total on in PM [Moles/vo source lume] in data Serum or Plasma Creatinin 0.55 - mg/dL Normal No Nov 16 e 1.02 informati 2016 3:25 [Mass/vol on in PM ume] in source Serum or data Plasma Estimated 59- ML/MIN No REFERENCE Nov 16 informati RANGE: 2016 3:25 glomerula on in >60 PM r source ML/MIN/1. filtratio data 73 SQUARE n rate METERSIf (GF this patient is -A merican, then multiply theresult by 1.210. Globulin 1.3 - 3.2 gm/dL High No Nov 16 [Mass/vol informati 2016 3:25 ume] in on in PM Serum source data Glucose 74 - 106 mg/dL High No Nov 16 [Mass/vol informati 2016 3:25 ume] in on in PM Serum or source Plasma data Potassium 3.5 - 5.1 mmoL/L Normal No Nov 16 inform2016 3:25 [Moles/vo on in PM lume] in source Serum or data Plasma Sodium 136 - 145 mmoL/L Normal No Nov 16 [Moles/vo informati 2016 3:25 lume] in on in PM Serum or source Plasma data Aspartate 15 - 37 U/L Normal No Nov 16 inform2016 3:25 aminotran on in PM sferase source [Enzymati data c activity/ volume] in Serum or Plasma Alanine 12 - 78 U/L Normal No Nov 16 aminotran informati 2016 3:25 sferase on in PM [Enzymati source c data activity/ volume] in Serum or Plasma Protein 6.4 - 8.2 gm/dL Normal No Nov 15 [Mass/vol informati 2016 3:25 ume] in on in PM Serum or source Plasma data Thyroxine (T4) free [Mass/volume] in Serum or Plasma Observa Value Referen Units Interpr Notes Date tion ce etation Range Thyroxine 0.76 - ng/dL Normal No Nov 15 (T4) 1.46 informati 2016 3:25 free on in PM [Mass/vol source ume] in data Serum or Plasma Thyrotropin [Units/volume] in Serum or Plasma Observa Value Referen Units Interpr Notes Date tion ce etation Range Thyrotrop 0.358 - uIU/ml Normal No Nov 15 in 3.740 informati 2016 3:25 [Units/vo on in PM lume] in source Serum or data Plasma CBC W Auto Differential panel in Blood Observa Value Referen Units Interpr Notes Date tion ce etation Range Basophils 0 - 0.2 K/MM3 Normal No Nov 15 informati 2016 3:25 [#/volume on in PM ] in source Blood by data Automated count Basophils 0.1 - 2.0 % Normal No Nov 15 /100 informati 2016 3:25 leukocyte on in PM s in source Blood by data Automated count Eosinophi 0.0 - 0.4 K/mm3 Normal No Nov 15 ls informati 2016 3:25 [#/volume on in PM ] in source Blood by data Automated count Eosinophi 0.1 - % Normal No Nov 15 ls/100 12.0 informati 2016 3:25 leukocyte on in PM s in source Blood by data Automated count Granulocy 1.8 - 7.8 K/mm3 Normal No Nov 15 mick informati 2016 3:25 [#/volume on in PM ] in source Blood by data Automated count Granulocy 37.0 - % Normal No Nov 15 mick/100 80.0 informati 2016 3:25 leukocyte on in PM s in source Blood by data Automated count Hematocri 37.0 - % Low No Nov 16 t [Volume 47.0 informati 2016 3:25 on in PM Fraction] source of Blood data Hemoglobi 12.2 - g/dL Normal No Nov 15 n 16.2 informati 2016 3:25 [Mass/vol on in PM ume] in source Blood data Lymphocyt 0.7 - 4.5 K/mm3 Normal No Nov 15 es informati 2016 3:25 [#/volume on in PM ] in source Unspecifi data ed specimen by Automated count Lymphocyt 10 - 50.0 % Normal No Nov 15 es informati 2016 3:25 [#/volume on in PM ] in source Unspecifi data ed specimen by Automated count Erythrocy 27 - 31.2 pg Normal No Nov 15 te mean informati 2016 3:25 corpuscul on in PM ar source hemoglobi data n [Entitic mass] Erythrocy 31.8 - g/dl Normal No Nov 16 te mean 35.4 informati 2016 3:25 corpuscul on in PM ar source hemoglobi data n concentra tion [Mass/vol ume] by Automated count Erythrocy 82.2 - fl Normal No Nov 16 te mean 97.8 informati 2016 3:25 corpuscul on in PM ar volume source [Entitic data volume] by Automated count Monocytes 0.1 - 1.0 K/mm3 Normal No Nov 15 informati 2016 3:25 [#/volume on in PM ] in source Blood by data Automated count Monocytes 1.7 - 9.3 % Normal No Nov 15 /100 informati 2016 3:25 leukocyte on in PM s in source Blood by data Automated count Platelet 7.4 - fl Normal No Nov 16 mean 10.4 informati 2016 3:25 volume on in PM [Entitic source volume] data in Blood by Automated count Platelets 142 - 424 K/mm3 Normal No Nov 15 informati 2016 3:25 [#/volume on in PM ] in source Blood data Erythrocy 4.2 - 5.4 M/mm3 Normal No Nov 15 mick informati 2017 3:25 [#/volume on in PM ] in source Amniotic data fluid Erythrocy 11.5 - % Normal No Nov 15 te 17.5 informati 2016 3:25 distribut on in PM ion width source [Entitic data volume] by Automated count Leukocyte 4.8 - K/MM3 Normal No Nov 15 s 10.8 informati 2016 3:25 [#/volume on in PM ] in source Blood data Influenza virus A+B Ag [Presence] in Unspecified specimen Observa Value Referen Units Interpr Notes Date tion ce etation Range Influen NOT NOT No No No October 16 za DETECTE DETECTD informa informa informa 2017 virus A D tion in tion in tion in 7:40 PM Ag source source source [Presen data data data ce] in Unspeci fied specime n INFLUEN NOT NOT No No LOT # October 16 ZA B DETECTE DETECTD informa informa @[id number] ANTIGEN D tion in tion in 5 EXP 7:40 PM source source DATE data data @2019-0 9-30 Streptococcus pyogenes Ag [Presence] in Unspecified specimen Observa Value Referen Units Interpr Notes Date tion ce etation Range Strepto NOT NOTDETE No No LOT # October 16 coccus DETECTE CTED informa informa N/A EXP 2017 pyogene D tion in tion in DATE 7:40 PM s Ag source source N/A [Presen data data ce] in Unspeci fied specime n
--- OUTSIDE RECORDS SUMMARY | 2017-01-12 09:58 | External Medical Summary Rpt ---
[...] 16 ZA B DETECTE DETECTD informa informa @[id number] ANTIGEN D tion in tion in 5 [...]
--- OUTSIDE RECORDS SUMMARY | 2017-01-12 09:58 | External Medical Summary Rpt ---
Demographics Preferred Language Uzbek Marital Status Unknown Caodaism Affiliation Unknown Race Unknown Ethnic Group Unknown Author Author OMAIRA Address Unknown Phone Immunization No patient found.
--- NOTE | 2017-01-12 10:08 | Urgent Treatment Center Report ---
History of Present Issue Date/Time Seen by Provider 01/12/17 1007 Visit Reason Pt arrived:Walked Presenting Problem:PT STATES HEAD CONGESTION THAT BEGAN ON SUNDAY. STATES BEING SEEN AT [facility] ON SUNDAY AND WAS PRESCRIBED AUGMENTIN. STATES NO IMPROVEMENT Location if Accident: Onset of symptoms date/time:01/06/17/ or onset unknown for:MEDICAL HX UNKNOWN Have you (or family members/close friends) recently traveled outside the [place]? N If Yes, where/when: Have you had exposure to infectious disease within the past month? TB? Other? Specify: c/o "I feel like ". Nasal congestion, rhinorrhea, head pressure, paul intermittent ear pains all starting Sunday. Was seen at [facility] "sunday or Sunday". Started Augmentin and has been taking tylenol for headaches. Feels worse rather than better. Fever and chills starting day after starting augmentin. Now PND causing nausea and occasional vomiting. diarrhea x 2 days. Cough. Mostly nonproductive but twice, thick brown sputum. Occasional chest discomfort with deep breaths. SOA w/ exertion. Denies wheezing. Cough worse w/ exertion or deep breathing. Continued head symptoms. "I feel like my head is going to explode". No known sick contacts. Source patient Exam Limitations no limitations ALLERGIES Coded Allergies: erythromycin base (Intermediate, I-HIVES 06/03/15) ibuprofen (Intermediate, SWELLING 06/03/15) levofloxacin (From LEVAQUIN) (S-DIFF. BREATHING 01/04/16) Home Medications Reported Medications Furosemide 40 MG PO DAILY #30 Carvedilol 3.125 MG PO BID #60 LISINOPRIL/HYDROCHLOROTHIAZIDE (Lisinopril-Hctz 20-25 MG Tab) 1 TAB PO DAILY #30 Estradiol 1 EACH TD 2 X WEEK #16 History Medical History General CAD? No Angina: No DE: No Hypertension? Yes Hyperlipidemia? No CHF? No DVT? No PE? No COPD? No Asthma? Yes Anemia? No GERD? No Gastric ulcers? No GI Bleed? No Hernia? No Thyroid Problems? No Hypothyroidism? No CVA? No Seizures? No Diabetes? No Renal Insuffiency? No UTI? Yes Stones? Yes BPH? No GB Disease: Yes Nephritic Syndrome? No Asplenia? No Hepatitis? No Sickle Cell Disease? No Arthritis? No Migraines? No Cataracts? No Glaucoma? No MRSA? No HIV? No TB? No Anxiety? No Depression? No Cancer? No More? No Immunization HX DT/Tetanus 1-4 Years Ago Flu Refused Pneumonia Refuses Surgical Hx Previous Surgery?Y C SECTION X 2 TUBAL ORAL SURGERY/WISDOM TEETH GALLBLADDER PARTIAL HYST Family History Family HX Diabetes Yes CAD Yes Hypertension Yes Hyperlipidemia No Cancer Yes TB No Social History Smoking Hx Smoker: Never Smoker Tobacco: No Packs/day N/A Alcohol Alcohol: No Review of Systems All Other Systems Reviewed and Negative Constitutional see HPI Eyes denies drainage, denies vision change ENT see HPI, ear pain (right worse ), throat pain ("more irritated" only AM & PM). denies: ear discharge, epistaxis, throat swelling. Respiratory see HPI Cardiovascular denies edema, denies palpitations, denies syncope Gastrointestinal see HPI, denies abdominal pain Musculoskeletal other ("not really aches, just blah") Skin denies rash Psychiatric/Neurological see HPI, denies other (dizziness) Physical Exam Vital Signs Vital Signs Date Time Temp Pulse Resp B/P Pulse O2 O2 Flow FiO2 Ox Delivery Rate 01/12 0950 98.2 83 18 154/90 97 General Appearance no apparent distress, obese Eye Exam - bilateral eye normal exam Ear, Nose, Throat nasal congestion (mild), paul EACs and TMs normal, clear PND w/ cobblestoning Neck non-tender, supple Respiratory Status Yes: trachea midline, chest symmetrical, non tender chest, pain on inspiration, non productive cough (worse w/ deep breaths). No: respiratory distress, use of accessory muscles, pain on expiration. Lung Sounds anterior: lungs clear. posterior: lungs clear. bilateral: lungs clear, decreased breath sounds (bases only). Cardiovascular regular rate/rhythm, no peripheral edema, no murmur Gastrointestinal normal bowel sounds, non tender, soft Neurologic alert, oriented x 3 Mental status normal mood/affect Skin normal color, warm/dry Lymphatic no adenopathy Medical Decision Making LABS/Meds/Orders Pt receiving controlled substance in ED? No Results/Orders Orders Procedure Date/time Status CHEST(2 VIEWS-NOT PORTABLE) 01/12 1032 Active XRAY/CT/US XRAY/CT/US XRAY chest XR interpretation by reviewed by me (w/ Dr. hernandez, CAMILO BOTELLO) Xray Results patchy right suggestive of possible pneumonia Comment Dr. Hernandez suggest changing antibiotics and starting steroids. Departure Departure Time of Disposition 1102 Disposition DC Home or Self Care(routine) Clinical Impression Primary Impression: Upper respiratory infection Qualifiers: URI type: unspecified URI Qualified Code: J06.9 - Acute upper respiratory infection, unspecified Secondary Impressions: Pneumonia involving right lung Qualifiers: Pneumonia type: due to unspecified organism Lung location: unspecified part of lung Qualified Code: J18.9 - Pneumonia, unspecified organism Condition STABLE Referrals TUCKER MONIQUE (Family) Follow up with Primary Care Sunday to ensure improvement. Return to [facility] this weekend for new or worsening symptoms. 911 for difficulty breathing. Patient Instructions DI for Pneumonia -- Adult, DI for Viral Upper Respiratory Infection -- Adult Additional Instructions STOP augmentin Start probiotic. Helps replenish gut sergei and therefore, decrease GI side effects of antibiotics. Start azithromycin immediately. Be sure to complete entire prescription even if feeling better. * Monitor Temp. Tylenol every 4 hours as needed and/or ibuprofen every 6 hours as needed (as long as your primary care doctor has told you that it is ok to take both) for fever/aches/pain. ER if fever no less than 101 despite tylenol and ibuprofen * humidifier/vaporizer/hot steamy shower * Encourage fluids, water, gatorade, powerade, pedialyte if infant/toddler/child * warm salt water gargles * warm fluids * sore throat lozenges * sleep elevated * Inhaler every 4-6 hours as needed like we discussed. If unsure how to use it, ask pharmacist to demonstrate how. Should help open airways and improve cough, wheezing, shortness of breath. * Mucinex during the day for your cough and cough suppressant only at night. Be sure to drink lots of water. Insurance may not cover a prescription of mucinex. Might be cheaper to get 400mg tablets and take 2 tablets morning, midday and evening all with lots of water. * Start steroid today. Helps with inflammation therefore, cough and Shortness of breath. Follow directions on package. Rvwd side effects. Pt reports they have taken them before. Follow up IMMEDIATELY for new or worsening symptoms OR no noticeable improvement over the next 48-72 hours. 911 for difficulty breathing. Discharge Counseling Counseled pt/family regarding diagnosis, test results, medications/RX, home care, follow up needs Prescriptions Current Visit Scripts Doxycycline Hyclate (Vibramycin) 100 MG PO BID #20 CAP Methylprednisolone (Medrol Dose Dean) 4 MG PO UD #1 DEAN TAKE DIRECTED ON PACKAGING ALBUTEROL (Proventil Hfa Inhaler) 1-2 PUFF IH Q4-6H PRN PRN SOA, wheezing #1 CAN at 1114
--- NOTE | 2017-01-12 11:09 | RADIOLOGY REPORT PS360 ---
CHEST(2 VIEWS-NOT PORTABLE) HISTORY: cough, SOA x 5 days, nonsmoker, on augmentin ORDERING PHYSICIAN: CARLOS AMADOR APRN PATIENT AGE: 46 years COMPARISON: 12/01/2016 FINDINGS: The cardiomediastinal silhouette and pulmonary vascularity are within normal limits. The lungs are clear without infiltrates, suspicious nodules, or pleural effusions. No acute bony abnormalities. There are degenerative changes in the thoracic spine IMPRESSION: No change with no acute finding
[2017-01-12] MEDS ORDERED: MEDROL 4MG. DOSE4 MG PO (11:12)
[2017-01-12] MEDS ORDERED: PROVENTIL0.09 MG/A1 IH (11:12)
[2017-01-12] MEDS ORDERED: DOXYCYCLINE HY100 M4 PO (11:12)
[2017-01-12 11:16] VITALS: BP 154/90
== END 2017-01-12 11:18 | disposition home or self-care (01) ==
LOC: UTC 09:41
DX: J18.9 Pneumonia, unspecified organism (principal); I10 Essential (primary) hypertension

== ENCOUNTER 2017-03-08 18:37 | Emergency (ER) | payer MEDICAID ==
[~2017-03-08 18:37] MED LIST changes: +DOXYCYCLINE HY100 M4 PO; +PROVENTIL0.09 MG/A1 IH
--- OUTSIDE RECORDS SUMMARY | 2017-03-15 22:07 | External Medical Summary Rpt | CCD ---
Author Author , OMAIRA Organization PATRICIARAJI Address Unknown Phone [email or web address] Care Team Providers Care Ore Storage Drier Name Role Phone [facility] Unavailable Unavailable MEDICAL GROUP, [facility] HERNANDEZ TER, HERNANDEZ TER Unavailable [...] Unavailable [facility] YOLANDE HTORPE PA-C Unavailable Unavailable YOLANDE ALANIZ PA-C CORBIN SPARROW JADEN, SPARROW JADEN Unavailable Unavailable TUCKER, TUCKER Unavailable Unavailable ARAGON, ARAGON Unavailable Unavailable FRYMAN, FRYMAN Unavailable Unavailable FRYMAN EUG, FRYMAN Unavailable Unavailable EUG JEFFRY, JEFFRY Unavailable Unavailable JEFFRY HUGH, JEFFRY Unavailable Unavailable HUGH ROSIBEL ROMAN MD, Unavailable Unavailable ROSIBEL ROMAN SHASTA, HARPEL Unavailable Unavailable SHASTA [facility] Unavailable Unavailable INC, [facility] Un[facility] Un[facility], [facility] Un[facility] Un[facility], [facility], Unavailable [facility]available [facility], Unavailable Unavailable [facility] CANTRELL AMA, CANTRELL Unavailable Unavailable AMA DEY, DEY Unavailable Unavailable [facility], [facility] Janes Jamison MD, Unavailable Unavailable Janes LOPEZ, Unavailable Unavailable EVENS LOPEZ, Unavailable Unavailable EVENS GRE HARPER GAR, Unavailable [...] Unavailable SADEK MOH, SADEK MOH Unavailable Unavailable STONE, STONE Unavailable Unavailable SAVANNA LUCERO, SAVANNA Unavailable Unavailable LUCERO Purpose Continuity of Care Document - 12-11-2012 through 2016 Problems Code Diagnosis DOS Provider Status E6609 OTHER 01-25-2017 [facility] OBESITY DUE PHYSICIANS TO EXCESS GROUP CALORIES J4520 MILD 01-25-2017 [facility] INTERMITTEN PHYSICIANS T ASTHMA GROUP UNCOMPLICAT ED M2550 PAIN IN 01-25-2017 [facility] UNSPECIFIED PHYSICIANS JOINT GROUP R739 HYPERGLYCEM 01-25-2017 [facility] IA PHYSICIANS UNSPECIFIED GROUP Z6841 BODY MASS 01-25-2017 [facility] INDEX BMI PHYSICIANS 40.0-44.9 GROUP ADULT R0602 SHORTNESS 01-24-2017 [facility] R0989 OTH SPEC SX 01-24-2017 [facility] SIGNS MEDICAL INVLV THE IMAGING ASS CIRC & RESP SYS J40 BRONCHITIS 01-16-2017 [facility] NOT PHYSICIANS SPECIFIED GROUP ACUTE OR CHRONIC R5381 OTHER 01-15-2017 [facility] MALAISE PHYSICIANS GROUP I10 ESSENTIAL 01-14-2017 [facility] PRIMARY PHYSICIANS, HYPERTENSIO PLLC N J040 ACUTE 01-14-2017 [place] [facility] J209 ACUTE 01-14-2017 [facility] BRONCHITIS PHYSICIANS, UNSPECIFIED PLLC R0600 DYSPNEA 01-14-2017 [facility]PEC[facility]IED [facility] H435PUE UNS ADVERS 01-14-2017 [facility] EFFECT PHYSICIANS, DRUG/MEDICA PLLC MENT INITIAL ENCNTR J189 PNEUMONIA 01-12-2017 [facility] UNSPECIFIED [facility] ORGANISM INC H6504 ACUTE 01-09-2017 [facility] SEROUS PHYSICIAN OTITIS GROUP MEDIA RECURRENT RIGHT EAR J0101 ACUTE 01-09-2017 [facility] RECURRENT PHYSICIAN MAXILLARY GROUP SINUSITIS I209 ANGINA 12-07-2016 [facility] PECTORIS [facility] UNSPECIFIED INC R9431 ABNORMAL 12-07-2016 [facility] ELECTROCARD [facility] IOGRAM INC Z8249 FAMILY HX 12-07-2016 [facility] ISCHEMIC [facility] HRT DZ OTH INC DZ CIRC SYSTEM H6693 OTITIS 12-03-2016 [facility] MEDIA PHYSICIAN UNSPECIFIED GROUP BILATERAL J0100 ACUTE 12-03-2016 [facility] MAXILLARY PHYSICIAN SINUSITIS GROUP UNSPECIFIED R002 PALPITATION 12-01-2016 [facility] MARSHALL, [facility] R079 CHEST PAIN 12-01-2016 [facility] E8770 FLUID 11-29-2016 [facility] OVERLOAD [facility] UNSPECIFIED INC Z0389 ENCOUNTER 11-16-2016 [facility] OBSERV OT MEDICAL SUSPCT DZ & IMAGING ASS COND RULED OUT M78582F SPRAIN UNS 10-20-2016 [facility] LIGAMENT PHYSICIANS LEFT ANKLE GROUP INITIAL ENCOUNTER J069 ACUTE UPPER 10-16-2016 [facility] RESPIRATORY INC INFECTION UNSPECIFIED Z94828 PRIMARY 10-10-2016 [facility] OSTEOARTHRI MEDICAL TIS LEFT IMAGING ASS ANKLE AND FOOT N76440 PAIN IN 10-10-2016 [place] RIGHT CHIROPRACTI SHOULDER C CENTE M5381 OTHER SPEC 10-10-2016 [place] DORSOPATHIE CHIROPRACTI S C CENTE OCCIPITO-AT HEATHER-AXIAL RGN M5386 OTHER 10-10-2016 [place] SPECIFIED CHIROPRACTI DORSOPATHIE C CENTE S LUMBAR REGION M5442 LUMBAGO 10-10-2016 [place] WITH CHIROPRACTI SCIATICA C CENTE LEFT SIDE M546 PAIN IN 10-10-2016 [place] THORACIC CHIROPRACTI SPINE C CENTE E75728 PAIN IN 10-10-2016 [facility] LEFT FOOT MEDICAL IM[facility]ING ASS M9906 SEGMENTAL & 10-10-2016 [place] SOMATIC CHIROPRACTI DYSFUNCTION C CENTE LOWER EXTREMITY S63941 ACUTE 06-29-2016 [facility] SUPPURATIVE PHYSICIANS OM W/O GROUP RUPT EAR DRUM RT EAR R109 UNSPECIFIED 06-29-2016 [facility] ABDOMINAL PHYSICIANS PAIN GROUP J029 ACUTE 05-04-2016 [facility] PHARYNGITIS PHYSICIANS GROUP UNSPECIFIED Z1231 ENCOUNTER 05-01-2016 [facility] SCREENING MEDICAL MAMMO MALIG IMAGING ASS NEOPLASM BREAST N951 MENOPAUSAL 04-25-2016 [facility] AND FEMALE PHYSICIANS CLIMACTERIC GROUP STATES I98906 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[facility] BLACKING WHEEL TENDER EXAM PHYSICIANS GENERAL RTN GROUP W/O ABNORMAL FIND Z1212 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[facility] SCREENING PHYSICIANS MALIGNANT GROUP NEOPLASM RECTUM J0390 ACUTE 04-13-2016 [facility] TONSILLITIS PHYSICIANS GROUP UNSPECIFIED M542 CERVICALGIA 03-30-2016 [place] CHIROPRACTI C CENTE M344IRG SPRAIN 03-30-2016 [place] LIGAMENTS CHIROPRACTI LUMBAR C CENTE SPINE INITIAL ENCOUNTER J59058P STRAIN 03-30-2016 [place] MUSCLE CHIROPRACTI FASCIA & C CENTE TENDON LOW BACK INITIAL G48749 PAIN IN 03-28-2016 [facility] LEFT HAND [facility] M7989 OTHER 03-28-2016 [facility] SPECIFIED MEDICAL SOFT TISSUE IMAGING ASS DISORDERS 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 M654 RADIAL 03-15-2016 [facility] STYLOID PHYSICIANS TENOSYNOVIT GROUP IS DE QUERVAIN V49266 GANGLION 03-15-2016 [facility] RIGHT WRIST PHYSICIANS GROUP B56740 GANGLION 03-15-2016 [facility] LEFT WRIST PHYSICIANS GROUP A32002 PAIN IN 03-07-2016 [facility] LEFT WRIST MEDICAL IMAGING ASS Z29637 GANGLION 03-07-2016 [facility] RIGHT HAND PHYSICIANS GROUP H08705 GANGLION 03-07-2016 [facility] LEFT HAND PHYSICIANS GROUP J61910 PAIN IN 03-07-2016 [facility] [facility] M9903 SEGMENTAL & 01-21-2016 [place] SOMATIC CHIROPRACTI DYSFUNCTION C CENTE OF LUMBAR REGION M545 LOW BACK 01-11-2016 [place] PAIN CHIROPRACTI C CENTE K1120 SIALOADENIT 01-04-2016 [facility] IS PHYSICIANS, UNSPECIFIED PLLC K1121 ACUTE 01-04-2016 [facility] SIALOADENIT [facility] IS INC J329 CHRONIC 12-27-2015 [facility] SINUSITIS [facility] J0140 ACUTE 11-22-2015 [facility] S MEDICAL UNSPECIFIED GROUP H6980 OTHER SPEC 11-09-2015 [facility] DISORDERS PHYSICIANS EUSTACHIAN GROUP TUBE UNS EAR Y50465 UNSPECIFIED 11-09-2015 [facility] ASTHMA PHYSICIANS UNCOMPLICAT GROUP ED R5383 OTHER 11-09-2015 [facility] FATIGUE PHYSICIANS GROUP Z840 FAMILY 11-09-2015 [facility] HISTORY PHYSICIANS DISEASES GROUP SKIN & SUBQ TISSUE Z0100 ENCOUNTER 11-04-2015 [facility] EXAM EYES & GRE VISION W/O ABNORMAL FIND H6690 OTITIS 09-22-2015 [facility] MEDIA PHYSICIANS UNSPECIFIED GROUP UNSPECIFIED EAR S01495 OTHER ACUTE 09-12-2015 [facility] NONSUPPURAT [facility] DOMINICK OM RECURRENT BILAT J0190 ACUTE 09-12-2015 [place] SINUSITIS [facility] D259 LEIOMYOMA 06-03-2015 [facility] UNSPECIFIED K660 PERITONEAL 06-03-2015 [facility] ADHESIONS [facility] POSTPROC INC POSTINFECTI ON N736 FEMALE 06-03-2015 [facility] PELVIC PHYSICIANS PERITONEAL GROUP ADHESIONS POSTINFECTI VE N800 ENDOMETRIOS 06-03-2015 [facility] IS OF [facility] UTERUS N831 CORPUS 06-03-2015 [facility] N8320 UNSPECIFIED 06-03-2015 [facility] OVARIAN PHYSICIANS CYSTS GROUP N856 INTRAUTERIN 06-03-2015 [facility] E SYNECH[facility] N938 OTHER SPEC 06-03-2015 [facility] ABNORMAL PHYSICIANS UTERINE & GROUP VAGINAL BLEEDING R102 PELVIC AND 06-03-2015 [facility] PERINEAL [facility] PAIN INC B9689 OTH SPEC 05-24-2015 ROSIBEL Ceballos BACTERIAL JESSIE BOTELLO AGNT CAUSE DZ CLASSIFIED ELSW N760 ACUTE 05-24-2015 ROSIB[facility] Ceballos VAGINITIS JESSIE BOTELLO N57580 ENCOUNTER 05-24-2015 [place] FOR OTHER [facility] PREPROCEDUR INC AL EXAMINATION N852 HYPERTROPHY 05-10-2015 [facility] N9489 OTH COND 05-04-2015 [facility] Ceballos ASSOC W/FE JESSIE BOTELLO GEN ORGN & MENSTRUAL CYCL 4019 UNSPECIFIED 02-03-2015 [facility] N 68553 ASTHMA, 02-03-2015 [place] [facility]US 5990 URINARY 02-03-2015 [place] TRACT [facility] SITE NOT SPECIFIED 80260 ABDOMINAL 01-05-2015 [facility] PAIN OTHER [facility] SPECIFIED INC SITE 48697 OTHER 11-03-2014 [place] SPECIFIED MEDICAL DISORDER OF IMAGING ASS KIDNEY AND URETER 24452 ABDOMINAL 11-03-2014 [facility] PAIN RIGHT [facility] UPPER INC QUADRANT V1301 PERSONAL 11-03-2014 [place] HISTORY OF [facility] URINARY INC CALCULI 462 ACUTE 10-07-2014 [place] PHARYNGITIS [facility] P 88587 ACUTE 10-07-2014 [place] LARYNGITIS, [facility] P MENTION OF OBSTRUCTIO 81331 UNSPECIFIED 09-14-2014 ROSIBEL Ceballos VAGINITIS JESSIE BOTELLO [...] STATES V7612 OTHER 06-16-2014 [facility] SCREENING [facility] MAM[facility] 401.9 401.9 12-11-2012 [facility].90 493.90 12-11-2012 [place] ASTHMA, [facility] Allergies, Adverse Reactions, Alerts Type Drug Allergy Adverse Reaction to Substance Substance Reaction Severity Erythromycin Unknown Unknown Chlorpheniramine Unknown Unknown Ibuprofen Unknown Unknown Hydrocodone Unknown Unknown Clinical Alert Notifications Alert Asthma: absence of controller with h/o SA beta agonist Asthma: no influenza vaccine in the last 365 days Diabetes: no A1C in the last 6 months Diabetes: no eye exam in the last 365 days Diabetes: no influenza vaccine in the last 365 days Diabetes: no lipid panel in the last 365 days Medications Na ND Rx Da Fi Fi Am Da Di Ph RX Ph St me C No te ll ll ou ys ag ar # ys at rm s nt no ma ic us Or Da si cy ia de te s n re d LI 68 09 09 30 30 00 RI Ac SI 18 -0 -2 .0 00 TE ti NO 00 2- 9- 00 01 ve VT 52 20 20 19 AI IL 00 17 17 37 D -H [address] AR Z MA 20 CY -2 5 #3 MG 93 8 TA B ES 00 09 09 8. 28 00 RI Ac TR 37 -0 -2 00 00 TE ti AD 84 1- 9- 0 01 ve IO 64 20 20 15 AI L 02 17 17 92 D 0. 6 37 PH 1 AR MG MA CY PA TC #3 H 93 8 ME 42 08 09 60 30 00 RI Ac TF 80 -2 -2 .0 00 TE ti OR 60 4- 2- 00 01 ve LA 31 20 20 19 AI N 30 17 17 68 D HC 5 77 PH L AR 50 MA 0 CY MG #3 TA 93 BL 8 ET JUAREZ 00 08 09 60 30 00 RI Ac LF 59 -2 -2 .0 00 TE ti 10 4- 2- 00 01 ve AL 79 20 20 19 AI AZ 60 17 17 68 D IN 1 78 PH E AR 50 MA 0 CY MG #3 TA 93 BL 8 ET DO 49 08 09 20 10 00 RI Ac XY 88 -1 -0 .0 00 TE ti CY 40 1- 8- 00 01 ve CL 72 20 20 19 AI IN 70 17 17 51 D E 3 08 PH MO AR NO MA CY 10 0 #3 MG 93 8 CA P ME 00 08 09 21 6 00 RI Ac TH 78 -1 -0 .0 00 TE ti YL 15 1- 8- 00 01 ve VT 02 20 20 19 AI ED 20 17 17 51 D NI 7 10 PH SO AR LO MA NE CY 4 #3 MG 93 8 DO SE PK VE 00 08 09 18 16 00 RI Ac NT 17 -1 -0 .0 00 TE ti OL 30 1- 8- 00 01 ve IN 68 20 20 19 AI 22 17 17 51 D HF 0 11 PH A AR 90 MA CY MC G #3 IN 93 RAMIRES 8 LE R ES 00 08 09 8. 28 00 RI Ac TR 37 -0 -0 00 00 TE ti AD 84 7- 1- 0 01 ve IO 64 20 20 15 AI L 02 17 17 92 D 0. 6 37 PH 1 AR MG MA CY PA TC #3 H 93 8 LI 68 08 09 30 30 00 RI Ac SI 18 -0 -0 .0 00 TE ti NO 00 7- 1- 00 01 ve VT 52 20 20 19 AI IL 00 17 17 37 D -H [address] AR Z MA 20 CY -2 5 #3 MG 93 8 TA B AM 66 08 09 14 7 00 RI Ac OX 68 -0 -0 .0 00 TE ti -C 51 8- 1- 00 01 ve LA 00 20 20 19 AI V 10 17 17 48 D 87 0 06 PH 5- AR 12 MA 5 CY MG #3 TA 93 BL 8 ET LI 68 06 07 30 30 00 RI Ac SI 18 -1 -1 .0 00 TE ti NO 00 9- 4- 00 01 ve VT 52 20 20 17 AI IL 00 [...] MG #3 TA 93 BL 8 ET FU 00 06 07 30 30 00 RI Ac RO 37 -1 -1 .0 00 TE ti SE 80 5- 4- 00 01 ve LA 21 20 20 18 AI DE 61 [...] TC #3 H 93 8 LI 68 05 06 30 30 00 RI Ac SI 18 -2 -1 .0 00 TE ti NO 00 3- 6- 00 01 ve VT 52 20 20 17 AI IL 00 [...] NO 00 6- 9- 00 01 ve VT 52 20 20 17 AI IL 00 [...] NO 00 2- 7- 00 01 ve VT 52 20 20 16 AI IL 00 [...] MG #3 TA 93 BL 8 ET VT 59 01 02 10 5 00 RI [...] NO 00 5- 0- 00 01 ve VT 52 20 20 16 AI IL 00 [...] MG #3 93 TA 8 BL ET VT 00 12 01 20 10 00 RI Ac OM 60 -2 -2 0. 00 TE ti ET 31 2- 0- 00 01 ve RAMIRES 58 20 20 0 16 AI ZI 65 16 17 36 D NE 4 14 PH -D AR M MA SY CY RU P #3 93 8 VT 00 12 01 10 5 00 RI [...] NO 00 5- 3- 00 01 ve VT 52 20 20 16 AI IL 00 [...] Order Detail nces retati t Range on Hemoglobin A1c in Blood (01-24-2017 07:08) Hemoglo 6.9 % 0.0% Normal complet bin A1c 017 - ed in 07:08 7.0% Blood Influenza virus A+B Ag [Presence] in Unspecified [...] Procedures Procedure DOS Code Location Performer Comment CT THORAX 11196 [facility] MAZARIEG[facility] W/O 7 MEDICAL CONTRAST IMAGING MATERIAL ASS SMR PRIM 08558 [facility] AL[facility] SRC 7 [facility] GRAM/GIEM INC INC SA STAIN BCT FUNGI/RONI L THERAPEUT 26622 [facility] STONE IC 7 PHYSICIAN PROPHYLAC S GROUP TIC/DX INJECTION SUBQ/IM INJECTION J0696 H STONE 7 PHYSICIAN CEFTRIAXO S GROUP NE SODIUM PER 250 MG CUL BACT 29294 [facility] ALV[facility]Z XCPT 7 [facility] URINE INC INC BLOOD/STO OL AEROBIC ISOL INJECTION J0696 H STONE 7 PHYSICIAN CEFTRIAXO S GROUP NE SODIUM PER 250 MG THERAPEUT 22738 [facility] STONE IC 7 PHYSICIAN PROPHYLAC S GROUP TIC/DX INJECTION SUBQ/[place] [address] [facility] ALVAREZ TROPONIN 7 [facility] QUANTITAT INC INC DOMINICK CREATINE 64737 [facility] ALVAREZ KINASE 7 [facility] TOTAL INC INC FIBRIN 62631 [facility] AL[facility]AREZ DGRADJ 7 [facility] PRODUCTS INC INC D-DIMER QUAL/SEMI ANGIE ECG 81212 [facility] ALVAREZ ROUTINE 7 [facility] ECG INC INC W/LEAST 12 LDS TRCG ONLY W/O I&R BLOOD 74514 [facility] ALVAREZ COUNT 7 [facility] COMPLETE INC INC AUTO&AUTO DIFRNTL WBC ECG 02754 [facility] TREADWELL ROUTINE 7 [facility] W/LEAST P 12 LDS I&R ONLY GLUC BLD 61204 [facility] ALVAREZ GLUC MNTR 7 [facility] DEV INC INC CLEARED FDA SPEC HOME USE NATRIURET 43862 [facility] ALVAREZ IC 7 [facility] PEPTIDE INC INC THYROID 56926 [facility] ALVAREZ HORM 7 [facility] UPTK/THYR INC INC OID HORMONE BINDING RATIO UNCLASSIF J3490 [facility] ALVAREZ IED DRUGS 7 [facility] INC INC COMPREHEN 92939 [facility] ALVAREZ SIVE 7 [facility] METABOLIC INC INC PANEL RADIOLOGI 49839 [facility] ALVAREZ C 7 [facility] EXAMINATI INC INC [place] [address] AN[facility]IO ALVAREZ THYROXINE 7 [facility] TOTAL INC INC CREATINE 18860 ANTONIO ALVAREZ KINASE MB 7 [facility] [place] [address] AN[facility]IO ALVAREZ THYROID 7 [facility] STIMULATI INC INC NG HORMONE TSH RADIOLOGI 90703 [facility] ALVAREZ C EXAM 7 [facility] CHEST 2 INC INC VIEWS FRONTAL&L ATERAL ECG 55512 [facility] ALVAREZ ROUTINE 7 [facility] ECG INC INC W/LEAST 12 LDS TRCG ONLY W/O I&R THERAPEUT 04753 [facility] FRYMAN IC 7 PHYSICIAN PROPHYLAC GROUP TIC/DX INJECTION SUBQ/IM INJECTION J0696 [facility] FRYMAN 7 PHYSICIAN CEFTRIAXO GROUP NE SODIUM PER 250 MG BLOOD 23949 [facility] ALVAREZ COUNT 7 [facility] COMPLETE INC INC AUTO&AUTO DIFRNTL [facility] G0378 [facility] ALVAREZ OBSERVATI 7 [facility] ON INC INC SERVICE PER HOUR BASIC 37945 AN[facility]IO ALVAREZ METABOLIC 7 [facility] PANEL INC INC CALCIUM TOTAL COMPREHEN 62920 AN[facility]IO ALVAREZ SIVE 7 [facility] METABOLIC INC INC PANEL CREATINE 61205 ANTONIO ALVAREZ KINASE MB 7 [facility] [place] [address] AN[facility]IO ALVAREZ THYROID 7 [facility] STIMULAT[place] [address] [facility] ALVAREZ THYROXINE 7 [facility] TOTAL INC INC RADIOLOGI 43557 [facility] ALVAREZ C 7 [facility] EXAMINATI INC INC ON [facility] G0378 [facility]IO ALVAREZ OBSERVATI 7 [facility] ON INC INC SERVICE PER HOUR OBSERVATI 90495 [facility] JEFFRY ON/INPATI 7 PHYSICIAN ENT S GROUP HOSPITAL CARE 50 MINUTES THYROID 11889 [facility]IO ALVAREZ HORM 7 [facility] UPTK/THYR INC INC OID HORMONE BINDING RATIO UNCLASSIF J3490 [facility]IO ALVAREZ IED DRUGS 7 [facility] INC INC ECG 43311 [facility] DEY ROUTINE 7 PHYSICIAN ECG S, PLLC W/LEAST 12 LDS I&[place] [address] ANTONIO ALVAREZ TROPONIN 7 [facility] QUANTITAT INC INC DOMINICK BLOOD 44424 [facility]IO ALVAREZ COUNT 7 [facility] COMPLETE INC INC AUTO&AUTO DIFRNTL WBC CREATINE 66102 [facility]IO ALVAREZ KINASE 7 [facility] TOTAL INC INC ECG 89856 AN[facility]IO ALVAREZ ROUTINE 7 [facility] ECG INC INC W/LEAST 12 LDS TRCG ONLY W/O I&R ECHO 91577 AN[facility]IO ALVAREZ TTHRC R-T 7 [facility]OS[facility] 2D INC INC W/WOM-MOD E COMPL SPEC&COLR D ECG 02002 AN[facility]IO TREADWELL ROUTINE 7 [facility] W/LEAST P 12 LDS I&R ONLY RHYTHM 69294 [facility] STONE ECG 1-3 7 PHYSICIAN LEADS S GROUP W/INTERPR ETATION & REPORT RADIOLOGI 75080 [facility] C EXAM 7 MEDICAL CHEST 2 IMAGING VIEWS ASS FRONTAL&L ATERAL COLLECTIO 57314 [facility] STONE N VENOUS 7 PHYSICIAN BLOOD S GROUP VENIPUNCT URE IAADIADOO 20600 [facility] ALVAREZ 7 [facility] INFLUENZA INC INC IAADIADOO 02568 [facility]IO ALVAREZ 7 [facility] [place]PTOC[place] [address] [place] [facility] 1/> AREAS 7 EACH 15 CHIROPRAC MIN TIC CENTE NEUROMUSC REEDUCA CHIROPRAC 17350 [place] [facility] TIC 7 MANIPULAT CHIROPRAC DOMINICK TX TIC CENTE SPINAL 1-2 REGIONS MANUAL 12890 [place] [facility] THERAPY 7 TQS 1/> CHIROPRAC REGIONS TIC CENTE EACH 15 MINUTES CHIROPRAC 94500 [place] TIC 7 MANIPLTV CHIROPRAC TX TIC CENTE EXTRASPIN AL 1/> REGION RADEX 52779 [facility] FOOT 7 MEDICAL COMPLETE IMAGING MINIMUM 3 ASS VIEWS INJECTION J1100 [facility] TYSON 7 PHYSICIAN DEXAMETHO S GROUP SONE SODIUM PHOSPHATE 1 MG THERAPEUT 23137 [facility] TYSON IC 7 PHYSICIAN PROPHYLAC S GROUP TIC/DX INJECTION SUBQ/IM MANUAL 38766 [place] [facility] THERAPY 7 TQS 1/> CHIROPRAC REGIONS TIC CENTE EACH 15 MINUTES CHIROPRAC 21953 [place] TIC 7 MANIPULAT CHIROPRAC DOMINICK TX TIC CENTE SPINAL 1-2 REGIONS URNLS DIP 93625 [facility] 7 PHYSICIAN PHYSICIAN STICK/TAB S GROUP S GROUP LET RGNT NON-AUTO W/O MICRSCP THERAPEUT 36521 [facility] STONE IC 7 PHYSICIAN PROPHYLAC S GROUP TIC/DX INJECTION SUBQ/IM INJECTION J0696 [facility] STONE 7 PHYSICIAN CEFTRIAXO S GROUP NE SODIUM PER 250 MG INJECTION J0696 [facility] STONE 6 PHYSICIAN CEFTRIAXO S GROUP NE SODIUM PER 250 MG THERAPEUT 25271 [facility] STONE IC 6 PHYSICIAN PROPHYLAC S GROUP TIC/DX INJECTION SUBQ/IM THERAPEUT 78870 [facility] FRYMAN IC 6 PHYSICIAN PROPHYLAC S GROUP TIC/DX INJECTION SUBQ/IM INJECTION J0696 [facility] FRYMAN 6 PHYSICIAN CEFTRIAXO S GROUP NE SODIUM PER 250 MG SCREENING G0202 [facility] ALVAREZ 6 [facility] MAMMOGRAP INC INC HY MICHELE INCL CAD WHEN PERFORMD COMPUTER- 74703 [facility] ALVAREZ AIDED 6 [facility] DETECTION INC INC SCREENING MAMMOGRAP HY CULTURE 47844 [facility] HARPEL CHLAMYDIA 6 PHYSICIAN SHASTA ANY S GROUP SOURCE CYTP C/V 08136 BIO BIO AUTO THIN 6 REFERNCE REFERNCE LYR LABORATOR LABORATOR PREPJ SCR IES IES MNL RESCR PHYS IADNA 16134 [facility] NEISSERIA 6 PHYSICIAN PHYSICIAN S GROUP S GROUP GONORRHOE AE DIRECT PROBE TQ IADNA 66764 BIO BIO NEISSERIA 6 REFERNCE REFERNCE LABORATOR LABORATOR GONORRHOE IES IES AE AMPLIFIED PROBE TQ IADNA NOS 21124 BIO BIO 6 REFERNCE REFERNCE AMPLIFIED LABORATOR LABORATOR PROBE TQ IES IES EACH ORGANISM IADNA 78183 BIO BIO CHLAMYDIA 6 REFERNCE REFERNCE LABORATOR LABORATOR TRACHOMAT IES IES IS AMPLIFIED PROBE TQ URINLS 81686 [facility] HARPEL DIP 6 PHYSICIAN SHASTA STICK/TAB S GROUP LET REAGNT NON-AUTO MICRSCPY IADNA 41367 BIO BIO TRICHOMON 6 REFERNCE REFERNCE LABORATOR LABORATOR VAGINALIS IES IES AMPLIFIED PROBE TECH INJECTION [id number] [facility] FR[facility]MAN 6 PHYSICIAN EUG CEFTRIAXO S GROUP NE SODIUM PER 250 MG THERAPEUT 69682 [facility] FR[facility]MAN IC 6 PHYSICIAN EUG PROPHYLAC S GROUP TIC/DX INJECTION SUBQ/IM [facility]AC 14445 [place] [facility] TIC 6 AMA MANIPLTV [facility] TX TIC CENTE EXTRASPIN AL 1/> REGION MANUAL 83603 [place] [facility] THERAPY 6 AMA TQS 1/> CH[facility] REGIONS TIC CENTE EACH 15 MINUTES CHIROPRAC 74920 [place] [facility] TIC 6 AMA MANIPULAT CHIROPRAC DOMINICK TX TIC CENTE SPINAL 3-4 REGIONS MRI UPPER 95767 [facility] 6 [facility] EXTREMITY INC INC OTH THAN JT W/O CONTR MATRL APPL 18094 [place] [facility] MODALITY 6 AMA 1/> AREAS CH[facility]OPRAC TIC CENTE ULTRASOUN D EA 15 MIN CH[facility]OP[facility]AC 03187 [place] [facility] TIC 6 AMA MANIPULAT CHIROPRAC DOMINICK TX TIC CENTE SPINAL 3-4 REGIONS MANUAL 71162 [place] [facility] THERAPY 6 AMA TQS 1/> CHIROPRAC REGIONS TIC CENTE EACH 15 MINUTES APPL 10466 [place] [facility] MODALITY 6 AMA 1/> AREAS [facility]OP[facility] ELEC TIC CENTE STIMJ UNATTENDE D APPL 77237 [place] [facility] MODALITY 6 AMA 1/> AREAS CHIROPRAC ELEC TIC CENTE STIMJ UNATTENDE D RADEX 62483 [facility]TON[facility] ALVAREZ HAND 2 6 [facility] VIEWS INC INC THERAPEUT 94176 [facility] IC 6 PHYSICIAN PHYSICIAN PROPHYLAC S GROUP S GROUP TIC/DX INJECTION SUBQ/IM MANUAL 09772 [place] [facility] THERAPY 6 AMA TQS 1/> CHIROPRAC REGIONS TIC CENTE EACH 15 MINUTES CHIROPRAC 95145 [place] [facility] TIC 6 AMA MANIPULAT CHIROPRAC DOMINICK TX TIC CENTE SPINAL 3-4 REGIONS APPL 71868 [place] [facility] MODALITY 6 AMA 1/> AREAS CHIROPRAC TIC CENTE ULTRASOUN D EA 15 MIN RADEX 85613 [place] [facility] WRIST 2 6 MEDICAL VIEWS IMAGING ASS APPL 89730 [place] [facility] MODALITY 6 AMA 1/> AREAS CHIROPRAC TIC CENTE ULTRASOUN D EA 15 MIN CHIROPRAC 92221 [place] [facility] TIC 6 AMA MANIPULAT CHIROPRAC DOMINICK TX TIC CENTE SPINAL 3-4 REGIONS MANUAL 03273 [place] [facility] THERAPY 6 AMA TQS 1/> CHIROPRAC REGIONS TIC CENTE EACH 15 MINUTES APPL 08091 [place] [facility] MODALITY 6 AMA 1/> AREAS CHIROPRAC ELEC TIC CENTE STIMJ UNATTENDE D APPL 19183 [place] [facility] MODALITY 6 AMA 1/> AREAS CHIROPRAC ELEC TIC CENTE STIMJ UNATTENDE D CHIROPRAC 20776 [place] [facility] TIC 6 AMA MANIPULAT CHIROPRAC DOMINICK TX TIC CENTE SPINAL 3-4 REGIONS MANUAL 89092 [place] [facility] THERAPY 6 AMA TQS 1/> CHIROPRAC REGIONS TIC CENTE EACH 15 MINUTES APPL 36229 [place] MODALITY 6 AMA 1/> AREAS CHIROPRAC TIC CENTE ULTRASOUN D EA 15 MIN APPL 12555 [place] MODALITY 6 AMA 1/> AREAS CHIROPRAC TIC CENTE ULTRASOUN D EA 15 MIN MANUAL 61381 [place] THERAPY 6 AMA TQS 1/> CHIROPRAC REGIONS TIC CENTE EACH 15 MINUTES CHIROPRAC 60036 [place] TIC 6 AMA MANIPULAT CHIROPRAC [place] TIC CENTE SPINAL 3-4 REGIONS APPL 15511 [place] MODALITY 6 AMA 1/> AREAS CHIROPRAC ELEC TIC CENTE STIMJ UNATTENDE D APPL 63477 [place] MODALITY 6 AMA 1/> AREAS CHIROPRAC ELEC TIC CENTE STIMJ UNATTENDE D CHIROPRAC 12329 [place] TIC 6 AMA MANIPULAT CHIROPRAC [place] TIC CENTE SPINAL 3-4 REGIONS MANUAL 92221 [place] THERAPY 6 AMA TQS 1/> CHIROPRAC REGIONS TIC CENTE EACH 15 MINUTES APPL 88524 [place] MODALITY 6 AMA 1/> AREAS CHIROPRAC TIC CENTE ULTRASOUN D EA 15 MIN MANUAL 06542 [place] THERAPY 6 AMA TQS 1/> CHIROPRAC REGIONS TIC CENTE EACH 15 MINUTES CHIROPRAC 56980 [place] TIC 6 AMA MANIPULAT CHIROPRAC [place] TIC CENTE SPINAL 3-4 REGIONS CHIROPRAC 26856 [place] TIC 6 AMA MANIPLTV CHIROPRAC TX TIC CENTE EXTRASPIN AL 1/> REGION APPL 56549 [place] MODALITY 6 AMA 1/> AREAS CHIROPRAC ELEC TIC CENTE STIMJ UNATTENDE D APPL 02488 [place] MODALITY 6 AMA 1/> AREAS CHIROPRAC TIC CENTE ULTRASOUN D EA 15 MIN THERAPEUT 80320 [place] IC PX 1/> 6 AMA AREAS CHIROPRAC EACH 15 TIC CENTE MIN EXERCISES APPL 69111 [place] MODALITY 6 AMA 1/> AREAS CHIROPRAC TIC CENTE ULTRASOUN D EA 15 MIN APPL 52703 [place] MODALITY 6 AMA 1/> AREAS CHIROPRAC ELEC TIC CENTE STIMJ UNATTENDE D CHIROPRAC 85935 [place] TIC 6 AMA MANIPLTV CHIROPRAC TX TIC CENTE EXTRASPIN AL 1/> REGION CHIROPRAC 20214 [place] TIC 6 AMA MANIPULAT CHIROPRAC DOM[place] TIC CENTE SPINAL 3-4 REGIONS MANUAL 98349 [place] THERAPY 6 AMA TQS 1/> CHIROPRAC REGIONS TIC CENTE EACH 15 MINUTES APPL 59129 [place] MODALITY 6 AMA 1/> AREAS CHIROPRAC TRACTION TIC CENTE MECHANICA L CHIROPRAC 49213 [place] TIC 6 AMA MANIPLTV CHIROPRAC TX TIC CENTE EXTRASPIN AL 1/> REGION MANUAL 04007 [place] [facility] THERAPY 6 AMA TQS 1/> CHIROPRAC REGIONS TIC CENTE EACH 15 MINUTES CHIROPRAC 44320 [place] TIC 6 AMA MANIPULAT CHIROPRAC DOM[place] TIC CENTE SPINAL 3-4 REGIONS APPL 53743 [place] MODALITY 6 AMA 1/> AREAS CHIROPRAC ELEC TIC CENTE STIMJ UNATTENDE D APPL 75248 [place] MODALITY 6 AMA 1/> AREAS CHIROPRAC TIC CENTE ULTRASOUN D EA 15 MIN APPL 18901 [place] MODALITY 6 AMA 1/> AREAS CHIROPRAC TRACTION TIC CENTE MECHANICA L APPL 66737 [place] MODALITY 6 AMA 1/> AREAS CHIROPRAC TRACTION TIC CENTE MECHANICA L APPL 04538 [place] MODALITY 6 AMA 1/> AREAS CHIROPRAC TIC CENTE ULTRASOUN D EA 15 MIN APPL 95899 [place] MODALITY 6 AMA 1/> AREAS CHIROPRAC ELEC TIC CENTE STIMJ UNATTENDE D CHIROPRAC 57420 [place] TIC 6 AMA MANIPULAT CHIROPRAC [place] TIC CENTE SPINAL 3-4 REGIONS MANUAL 98109 [place] THERAPY 6 AMA TQS 1/> CHIROPRAC REGIONS TIC CENTE EACH 15 MINUTES CHIROPRAC 84698 [place] TIC 6 AMA MANIPLTV CHIROPRAC TX TIC CENTE EXTRASPIN AL 1/> REGION CHIROPRAC 99910 [place] TIC 6 AMA MANIPULAT CHIROPRAC DOM[place] TX TIC CENTE SPINAL 3-4 REGIONS CHIROPRAC 31859 [place] TIC 6 AMA MANIPLTV CHIROPRAC TX TIC CENTE EXTRASPIN AL 1/> REGION MANUAL 65375 [place] THERAPY 6 AMA TQS 1/> CHIROPRAC REGIONS TIC CENTE EACH 15 MINUTES APPL 06003 [place] MODALITY 6 AMA 1/> AREAS CHIROPRAC ELEC TIC CENTE STIMJ UNATTENDE D APPL 93860 [place] MODALITY 6 AMA 1/> AREAS CHIROPRAC TIC CENTE ULTRASOUN D EA 15 MIN APPL 81043 [place] MODALITY 6 AMA 1/> AREAS CHIROPRAC TRACTION TIC CENTE MECHANICA L APPL 35961 [place] MODALITY 6 AMA 1/> AREAS CHIROPRAC TIC CENTE ULTRASOUN D EA 15 MIN APPL 91724 [place] MODALITY 6 AMA 1/> AREAS CHIROPRAC ELEC TIC CENTE STIMJ UNATTENDE D CHIROPRAC 33558 [place] TIC 6 AMA MANIPLTV CHIROPRAC TX TIC CENTE EXTRASPIN AL 1/> REGION CHIROPRAC 59086 [place] TIC 6 AMA MANIPULAT CHIROPRAC DOMIN[place] TX TIC CENTE SPINAL 3-4 REGIONS MANUAL 97393 [place] THERAPY 6 AMA TQS 1/> CHIROPRAC REGIONS TIC CENTE EACH 15 MINUTES RADEX 36828 [place] SPINE 6 AMA LUMBOSACR CHIROPRAC AL 2/3 TIC CENTE VIEWS APPL 36268 [place] MODALITY 6 AMA 1/> AREAS CHIROPRAC TRACTION TIC CENTE MECHANICA L CHIROPRAC 30509 [place] TIC 6 AMA MANIPLTV CHIROPRAC TX TIC CENTE EXTRASPIN AL 1/> REGION APPL 74462 [place] MODALITY 6 AMA 1/> AREAS CHIROPRAC TIC CENTE ULTRASOUN D EA 15 MIN MANUAL 78764 [place] [facility] THERAPY 6 AMA TQS 1/> CHIROPRAC REGIONS TIC CENTE EACH 15 MINUTES CHIROPRAC 14114 [place] TIC 6 AMA MANIPULAT CHIROPRAC DOM[place] TX TIC CENTE SPINAL 3-4 REGIONS APPL 93831 [place] MODALITY 6 AMA 1/> AREAS CHIROPRAC ELEC TIC CENTE STIMJ UNATTENDE D APPL 80320 [place] MODALITY 6 AMA 1/> AREAS CHIROPRAC TRACTION TIC CENTE MECHANICA L APPL 38910 [place] MODALITY 6 AMA 1/> AREAS CHIROPRAC TRACTION TIC CENTE MECHANICA L APPL 15599 [place] MODALITY 6 AMA 1/> AREAS CHIROPRAC ELEC TIC CENTE STIMJ UNATTENDE D CHIROPRAC 64872 [place] TIC 6 AMA MANIPULAT CHIROPRAC [place] TIC CENTE SPINAL 3-4 REGIONS MANUAL 69291 [place] THERAPY 6 AMA TQS 1/> CHIROPRAC REGIONS TIC CENTE EACH 15 MINUTES APPL 72102 [place] MODALITY 6 AMA 1/> AREAS CHIROPRAC TIC CENTE ULTRASOUN D EA 15 MIN CHIROPRAC 35394 [place] TIC 6 AMA MANIPLTV CHIROPRAC TX TIC CENTE EXTRASPIN AL 1/> REGION CHIROPRAC 05873 [place] TIC 6 AMA MANIPLTV CHIROPRAC TX TIC CENTE EXTRASPIN AL 1/> REGION MANUAL 97846 [place] [facility] THERAPY 6 AMA TQS 1/> CHIROPRAC REGIONS TIC CENTE EACH 15 MINUTES CHIROPRAC 37569 [place] TIC 6 AMA MANIPULAT CHIROPRAC DOMIN[place] TX TIC CENTE SPINAL 3-4 REGIONS APPL 08520 [place] MODALITY 6 AMA 1/> AREAS CHIROPRAC ELEC TIC CENTE STIMJ UNATTENDE D APPL 55559 [place] MODALITY 6 AMA 1/> AREAS CHIROPRAC TRACTION TIC CENTE MECHANICA L APPL 41819 [place] MODALITY 6 AMA 1/> AREAS CHIROPRAC TRACTION TIC CENTE MECHANICA L CHIROPRAC 58135 [place] TIC 6 AMA MANIPULAT CHIROPRAC DOMIN[place] TX TIC CENTE SPINAL 3-4 REGIONS CHIROPRAC 65830 [place] TIC 6 AMA MANIPLTV CHIROPRAC TX TIC CENTE EXTRASPIN AL 1/> REGION MANUAL 21282 [place] THERAPY 6 AMA TQS 1/> CHIROPRAC REGIONS TIC CENTE EACH 15 MINUTES MANUAL 91105 [place] THERAPY 6 AMA TQS 1/> CHIROPRAC REGIONS TIC CENTE EACH 15 MINUTES CHIROPRAC 54117 [place] TIC 6 AMA MANIPULAT CHIROPRAC DOMIN[place] TX TIC CENTE SPINAL 3-4 REGIONS CHIROPRAC 27657 [place] TIC 6 AMA MANIPLTV CHIROPRAC TX TIC CENTE EXTRASPIN AL 1/> REGION APPL 97759 [place] MODALITY 6 AMA 1/> AREAS CHIROPRAC TIC CENTE ULTRASOUN D EA 15 MIN APPL 40192 [place] MODALITY 6 1/> AREAS CHIROPRAC CHIROPRAC TRACTION TIC CENTE TIC CENTE MECHANICA L APPL 39479 [place] MODALITY 6 AMA 1/> AREAS CHIROPRAC ELEC TIC CENTE STIMJ UNATTENDE D THERAPEUT 30866 [place] CANTRELL IC PX 1/> 6 AMA AREAS CHIROPRAC EACH 15 TIC CENTE MIN EXERCISES APPL 34101 [place] MODALITY 6 1/> AREAS CHIROPRAC CHIROPRAC ELEC TIC CENTE TIC CENTE STIMJ UNATTENDE D APPL 82105 [place] MODALITY 6 AMA 1/> AREAS CHIROPRAC TRACTION TIC CENTE MECHANICA L APPL 54126 [place] MODALITY 6 AMA 1/> AREAS CHIROPRAC TIC CENTE ULTRASOUN D EA 15 MIN CHIROPRAC 46397 [place] TIC 6 AMA MANIPLTV CHIROPRAC TX TIC CENTE EXTRASPIN AL 1/> REGION CHIROPRAC 10727 [place] TIC 6 AMA MANIPULAT CHIROPRAC DOMIN[place] TX TIC CENTE SPINAL 3-4 REGIONS MANUAL 29494 [place] THERAPY 6 AMA TQS 1/> CHIROPRAC REGIONS TIC CENTE EACH 15 MINUTES MANUAL 95791 [place] THERAPY 6 AMA TQS 1/> CHIROPRAC REGIONS TIC CENTE EACH 15 MINUTES CHIROPRAC 83704 [place] TIC 6 AMA MANIPULAT CHIROPRAC DOMIN[place] TX TIC CENTE SPINAL 3-4 REGIONS CHIROPRAC 88828 [place] TIC 6 AMA MANIPLTV CHIROPRAC TX TIC CENTE EXTRASPIN AL 1/> REGION APPL 26159 [place] MODALITY 6 AMA 1/> AREAS CHIROPRAC TIC CENTE ULTRASOUN D EA 15 MIN APPL 62213 [place] MODALITY 6 1/> AREAS CHIROPRAC CHIROPRAC TRACTION TIC CENTE TIC CENTE MECHANICA L APPL 73020 [place] MODALITY 6 AMA 1/> AREAS CHIROPRAC ELEC TIC CENTE STIMJ UNATTENDE D APPL 62409 [place] MODALITY 6 AMA 1/> AREAS CHIROPRAC ELEC TIC CENTE STIMJ UNATTENDE D APPL 96756 [place] MODALITY 6 1/> AREAS CHIROPRAC CHIROPRAC TIC CENTE TIC CENTE ULTRASOUN D EA 15 MIN APPL 79029 [place] MODALITY 6 AMA 1/> AREAS CHIROPRAC TRACTION TIC CENTE MECHANICA L CHIROPRAC 06100 EMMIE RENEE PRA TIC 6 MANIPLTV CHIROPRAC TX TIC CENTE EXTRASPIN AL 1/> REGION CHIROPRAC 37282 [place] TIC 6 AMA MANIPULAT CHIROPRAC DOMIN[place] TX TIC CENTE SPINAL 3-4 REGIONS MANUAL 94775 [place] THERAPY 6 AMA TQS 1/> CHIROPRAC REGIONS TIC CENTE EACH 15 MINUTES MANUAL 85062 [place] THERAPY 6 AMA TQS 1/> CHIROPRAC REGIONS TIC CENTE EACH 15 MINUTES CHIROPRAC 57539 [place] TIC 6 AMA MANIPULAT CHIROPRAC DOMIN[place] TX TIC CENTE SPINAL 3-4 REGIONS CHIROPRAC 34969 [place] TIC 6 AMA MANIPLTV CHIROPRAC TX TIC CENTE EXTRASPIN AL 1/> REGION APPL 31506 [place] MODALITY 6 1/> AREAS CHIROPRAC CHIROPRAC TRACTION TIC CENTE TIC CENTE MECHANICA L APPL 28293 [place] MODALITY 6 AMA 1/> AREAS CHIROPRAC ELEC TIC CENTE STIMJ UNATTENDE D APPL 00878 [place] MODALITY 6 1/> AREAS CHIROPRAC CHIROPRAC TRACTION TIC CENTE TIC CENTE MECHANICA L APPL 47565 [place] MODALITY 6 AMA 1/> AREAS CHIROPRAC ELEC TIC CENTE STIMJ UNATTENDE D CHIROPRAC 51589 [place] TIC 6 AMA MANIPLTV CHIROPRAC TX TIC CENTE EXTRASPIN AL 1/> REGION CHIROPRAC 74067 [place] TIC 6 AMA MANIPULAT CHIROPRAC DOMINICK TX TIC CENTE SPINAL 3-4 REGIONS MANUAL 26977 [place]ANT[place] THERAPY 6 AMA TQS 1/> CHIROPRAC REGIONS TIC CENTE EACH 15 MINUTES MANUAL 37305 [place] THERAPY 6 AMA TQS 1/> CHIROPRAC REGIONS TIC CENTE EACH 15 MINUTES CHIROPRAC 71425 [place] TIC 6 AMA MANIPULAT CHIROPRAC DOMIN[place] TX TIC CENTE SPINAL 3-4 REGIONS CHIROPRAC 96726 [place] TIC 6 AMA MANIPLTV CHIROPRAC TX TIC CENTE EXTRASPIN AL 1/> REGION APPL 98492 [place] MODALITY 6 AMA 1/> AREAS CHIROPRAC ELEC TIC CENTE STIMJ UNATTENDE D APPL 43970 [place] MODALITY 6 AMA 1/> AREAS CHIROPRAC TRACTION TIC CENTE MECHANICA L APPL 96040 [place] MODALITY 6 AMA 1/> AREAS CHIROPRAC TRACTION TIC CENTE MECHANICA L APPL 23951 [place] MODALITY 6 AMA 1/> AREAS CHIROPRAC [place]LEC [place] [address] [place] CANT[place] 1/> AREAS 6 AMA EACH 15 CHIROPRAC MIN TIC CENTE NEUROMUSC REEDUCA CHIROPRAC 25364 [place] TIC 6 AMA MANIPLTV CHIROPRAC TX TIC CENTE EXTRASPIN AL 1/> REGION CHIROPRAC 49227 [place] TIC 6 AMA MANIPULAT CHIROPRAC DOMINICK TX TIC CENTE SPINAL 3-4 REGIONS MANUAL 53054 [place] THERAPY 6 AMA TQS 1/> CHIROPRAC REGIONS TIC CENTE EACH 15 MINUTES MANUAL 52887 [place] THERAPY 6 AMA TQS 1/> CHIROPRAC REGIONS TIC CENTE EACH 15 MINUTES CHIROPRAC 33409 [place] TIC 6 AMA MANIPULAT CHIROPRAC DOMINICK TX TIC CENTE SPINAL 3-4 REGIONS CHIROPRAC 19900 [place] TIC 6 AMA MANIPLTV CHIROPRAC TX TIC CENTE EXTRASPIN AL 1/> [place] [address] [place] 1/> AREAS 6 AMA EACH 15 CHIROPRAC MIN TIC CENTE NEUROMUSC REEDUCA APPL 96274 EMMIE CANTRELL MODALITY 6 AMA 1/> AREAS CHIROPRAC ELEC TIC CENTE STIMJ UNATTENDE D APPL 95869 EMMIE CANTRELL MODALITY 6 AMA 1/> AREAS CHIROPRAC TRACTION TIC CENTE MECHANICA L IAADIADOO 69964 [facility] STREPTOCO MEDICAL CCUS GROUP GROUP A BLOOD 06305 ANTONIO ALVAREZ COUNT 6 [facility] COMPLETE INC INC AUTO&AUTO DIFRNTL WBC 25 10996 ANTONIO ALVAREZ HYDROXY 6 [facility] INCLUDES INC INC FRACTIONS IF PERFORMED CREATINE 59107 ANTONIO ALVAREZ KINASE 6 [facility] TOTAL INC INC SEDIMENTA 38753 ANTONIO ALVAREZ TIDIAZ RATE 6 [facility] [place] [address] ANTONIO ALVAREZ THYROID 6 [facility] STIMULATI [place] [address] ANTONIO ALVAREZ THYROXINE 6 [facility] TOTAL INC INC ANTINUCLE 35334 ANTONIO ALVAREZ AR 6 [facility] ANTIBODIE INC INC S TYSHAWN C-REACTIV 02892 ANTONIO ALVAREZ E PROTEIN 6 [facility] INC INC DNA 38574 ANTONIO ALVAREZ ANTIBODY 6 [facility]/DO INC INC UBLE STRANDED COMPREHEN 01887 ANTONIO ALVAREZ SIVE 6 [facility] METABOLIC INC INC PANEL COLLECTIO 54626 [facility] YOLANDE N VENOUS 6 PHYSICIAN STONE BLOOD S GROUP PA-C CORBIN VENIPUNCT URE OPHTH 27400 [facility] 6 GRE GRE XM&EVAL COMPRE NEW PT 1/> VST THERAPEUT 02333 [facility] JEFFRY IC 6 PHYSICIAN HUGH PROPHYLAC S GROUP TIC/DX INJECTION SUBQ/IM INJECTION [id number] [facility] JEFFRY 6 PHYSICIAN HUGH CEFTRIAXO S GROUP NE SODIUM PER 250 MG INJECTION J1040 [facility] 6 PHYSICIAN HUGH METHYLPRE S GROUP DNISOLONE ACETATE 80 MG INJECTION J1040 [facility] JEFFRY 6 PHYSICIAN HUGH METHYLPRE S GROUP DNISOLONE ACETATE 80 MG INJECTION J0696 [facility] PHYSICIAN HUGH CEFTRIAXO S GROUP NE SODIUM PER 250 MG THERAPEUT 68768 [facility] IC 6 PHYSICIAN HUGH PROPHYLAC S GROUP TIC/DX INJECTION SUBQ/IM THERAPEUT 75990 [facility] IC 6 [facility] TIC/DX INJECTION SUBQ/IM INJECTION J1100 [address] DEXAMETHO [facility] SONE SODIUM PHOSPHATE 1 MG INJECTION J0561 [address] [facility] [place] 055925 UNITS ANESTHESI 00333 [facility] A 5 ANESTH INTRAPERI OF THE TONEAL BLUE LOWER ABD W/LAPS NOS TOTAL 36411 ROSIBEL ROMAN ABDOMINAL 5 JESSIE VEGAS HYSTERECT W/[place] [address] [facility], PICKLESIM SURG 5 [facility] PATH[facility] GROSS&HUGH ROSCOPIC EXAM COLLECTIO 45330 ANTONIO ALVAREZ N VENOUS 5 [facility] BLOOD INC INC VENIPUNCT URE CULTURE 50192 ANTONIO ALVAREZ BACTERIAL 5 [facility] INC INC QUANTTATI VE COLONY COUNT URINE SMR PRIM 53061 ROSIBEL ROMAN SRC WET 5 JESSIE VEGAS [facility] AGT SUSCEPTIB 46120 ANTONIO ALVAREZ LTY STDY 5 [facility] ANTIMICRB INC INC IAL MICRO/AGA R DILUTJ URNLS DIP 58872 ANTONIO ALVAREZ 5 [facility] STICK/TAB INC INC LET REAGENT AUTO MICROSCOP Y GONADOTRO 64281 ANTONIO ALVAREZ PIN 5 [facility] CHORIONIC INC INC QUALITATI VE BLOOD 67844 ANTONIO ALVAREZ COUNT 5 [facility] COMPLETE INC INC AUTO&[place] [address] [facility] TRANSVAGI 5 MEDICAL ARELY NAL IMAGING ASS URINLS 32792 ROSIBEL ROMAN DIP 5 HARPEL MD SHASTA STICK/TAB LET REAGNT NON-AUTO MICRSCPY CHIROPRAC 41930 EMMIE SALEEM TIC 5 GAR MANIPULAT CHIROPRAC DOMINICK TX TIC CENTE SPINAL 1-2 REGIONS CHIROPRAC 81297 EMMIE SALEEM TIC 5 GAR MANIPLTV CHIROPRAC TX TIC CENTE EXTRASPIN AL 1/> [place] [address] EMMIE SALEEM 1/> AREAS 5 GAR EACH 15 CHIROPRAC MIN TIC CENTE NEUROMUSC REEDUCA APPL 68998 EMMIE SALEEM MODALITY 5 GAR 1/> AREAS CHIROPRAC [place] [address] EMMIE SALEEM 1/> AREAS 5 GAR EACH 15 CHIROPRAC MIN TIC CENTE NEUROMUSC REEDUCA CHIROPRAC 49115 EMMIE SALEEM TIC 5 GAR MANIPLTV CHIROPRAC TX TIC CENTE EXTRASPIN AL 1/> REGION CHIROPRAC 24764 EMMIE SALEEM TIC 5 GAR MANIPULAT CHIROPRAC DOMINICK TX TIC CENTE SPINAL 1-[place] [address] EMMIE SALEEM 1/> AREAS 5 GAR EACH 15 CHIROPRAC [place] [address] CYNCUATE SALEEM 1/> AREAS 5 GAR EACH 15 CHIROPRAC MINUTES TIC CENTE MASSAGE CHIROPRAC 11587 EMMIE SALEEM TIC 5 GAR MANIPULAT CHIROPRAC DOMINICK TX TIC CENTE SPINAL 1-2 [place] [address] EMMIE SALEEM 1/> AREAS 5 GAR EACH 15 CHIROPRAC MIN TIC CENTE NEUROMUSC REEDUCA URNLS DIP 05606 ANTONIO BELTRAN 5 [facility] STICK/TAB [facility] LET RGNT NON-AUTO W/O MICRSCP COMPREHEN 63411 ANTONIO ALVAREZ SIVE 5 [facility] METABOLIC INC INC PANEL COLLECTIO 42434 ANTONIO ALVAREZ N VENOUS 5 [facility] BLOOD INC INC VENIPUNCT URE BLOOD 67980 ANTONIO ALVAREZ COUNT 5 [facility] COMPLETE INC INC AUTO&AUTO DIFRNTL WBC URNLS DIP 78448 ANTONIO ALVAREZ 5 [facility] STICK/TAB INC INC LET REAGENT AUTO MICROSCOP Y URNLS DIP 47894 ANTONIO ALVAREZ 5 [facility] STICK/TAB INC [place] [address] ANTONIO ALVAREZ ABDOMEN & 5 [facility] PELVIS INC INC W/O CONTRAST MATERIAL BLOOD 30764 ANTONIO ALVAREZ COUNT 5 [facility] COMPLETE INC INC AUTO&AUTO DIFRNTL WBC COMPREHEN 37303 ANTONIO ALVAREZ SIVE 5 [facility] METABOLIC INC INC PANEL COMPREHEN 74225 ANTONIO ALVAREZ SIVE 5 [facility] METABOLIC INC INC PANEL IMMUNOASS 66939 ANTONIO ALVAREZ AY NFCT 5 [facility] AGT ANTB INC INC QUAL/SEMI ANGIE 1 [place] [address] ANTONIO ALVAREZ INFUSION 5 [facility] THERAPY/P INC INC ROPHYLAXI S /DX 1ST TO 1 HR BLOOD 99911 ANTONIO ALVAREZ COUNT 5 [facility] COMPLETE INC INC AUTO&AUTO DIFRNTL WBC UNCLASSIF J3490 ANTONIO ALVAREZ IED DRUGS 5 [facility] INC INC HGB 11047 ROSIBEL ROMAN QUANTITAT 5 JESSIE VEGAS DOMINICK TRANSCUTA NEOUS SMR PRIM 87497 ROSIBEL ROMAN SRC WET 5 JESSIE VEGAS [facility] AGT ANESTHESI 11691 [facility] A VAGINAL 5 ANESTH LUCERO OF THE PROCEDURE BLUE W/BIOPSY NOS COLLECTIO 83369 ANTONIO ALVAREZ N VENOUS 5 [facility] BLOOD INC INC VENIPUNCT URE DILATION 67661 ROSIBEL ROMAN & 5 JESSIE VEGAS CURETTAGE DX&/[place] [address] [facility], [facility], SURG 5 [facility] PATHOLOGY GROSS&HUGH ROSCOPIC EXAM BLOOD 01400 ANTONIO ALVAREZ COUNT 5 [facility] [place] [address] ANTONIO ALVAREZ INFUSION 5 [facility] THERAPY INC INC PROPHYLAX IS/DX EA HOUR UNCLASSIF J3490 ANTONIO ALVAREZ IED DRUGS 5 [facility] INC INC INJECTION J2405 ANTONIO ALVAREZ 5 [facility] ONDANSETR INC INC ON HCL PER 1 MG BLOOD 30488 ANTONIO ALVAREZ COUNT 5 [facility] HEMOGLOBI INC INC N BLOOD 38840 ANTONIO ALVAREZ COUNT 5 [facility] COMPLETE INC INC AUTO&AUTO DIFRNTL WBC URNLS DIP 63638 ANTONIO ALVAREZ 5 [facility] STICK/TAB INC INC LET REAGENT AUTO MICROSCOP Y COLLECTIO 30567 ANTONIO ALVAREZ N VENOUS 5 [facility] BLOOD INC INC VENIPUNCT URE CULTURE 06155 AN[facility] ALVAREZ BACTERIAL 5 [facility] INC INC QUANTTATI VE COLONY COUNT URINE URINE 61557 [facility] TEST INC INC VISUAL COLOR CMPRSN METHS COLLECTIO 68407 [facility] ALVAREZ N VENOUS 5 [facility] [place] [address] [facility] ALVAREZ TRANSVAGI 5 [facility] NAL INC INC BLOOD 96596 [facility]AREZ COUNT 5 [facility] COMPLETE INC INC AUTO&AUTO DIFRNTL WBC SCREENING [id number] [facility] MAMMOGRAP INC INC HY MICHELE INCL CAD WHEN PERFORMD COMPUTER- 33926 ANTONIO ALVAREZ AIDED 5 [facility] DETECTION INC INC SCREENING MAMMOGRAP HY Encounters Encounter Start End Date Code Location Performer Type Date OFFICE 59160 [facility] OUTPATIEN 7 7 PHYSICIAN T VISIT S GROUP 25 MINUTES OFFICE 47458 [facility] 7 7 PHYSICIAN T [facility]ISIT 5 S GROUP MINUTES [facility] - [facility] 7 [facility] T OFFICE 18988 [facility] 7 7 PHYSICIAN T [facility]ISIT S GROUP 15 MINUTES EMERGENCY 87921 [facility] DEPT 7 7 [facility] V[facility] INC HIGH SEVERITY& THREAT [facility] - 7 7 [facility] - [facility] T OFFICE 00097 [facility] OUTPATIEN 7 7 [facility] T VISIT 5 INC MINUTES OFFICE 21335 [facility] [place] 7 7 PHYSICIAN T VISIT GROUP 15 MINUTES [facility] - 7 7 [facility] T OFFICE 51862 [facility] 7 7 PHYSICIAN T VISIT GROUP 15 MINUTES [facility] - 7 7 [facility] OUTPATIEN INC T EMERGENCY 37483 [facility] 7 7 [facility] DEPARTMEN INC T VISIT HIGH/URGE NT SEVERITY EMERGENCY 05533 [facility] DEY DEPT 7 7 PHYSICIAN VISIT S, [facility] HIGH SEVERITY& THREAT [facility] - 7 7 [facility] OUTPATI[facility] INC T OFFICE 58135 [facility] 7 7 PHYSICIAN T VISIT S GROUP 15 MINUTES OFFICE 79043 [facility] 7 7 PHYSICIAN T VISIT S GROUP 25 MINUTES OFFICE 92608 [facility] [place] 7 7 PHYSICIAN T VISIT S GROUP 15 MINUTES [facility] - 7 7 [facility] OUTPATI[facility] INC T OFFICE 57128 [facility] OUTPATIEN 7 7 [facility] T VISIT 5 INC MINUTES OFFICE 01287 [facility] [place] 7 7 PHYSICIAN T VISIT S GROUP 25 MINUTES OFFICE 64637 [facility] 7 7 PHYSICIAN T VISIT S GROUP 25 MINUTES OFFICE 13443 [facility] 7 7 PHYSICIAN T VISIT S GROUP 25 MINUTES OFFICE 25690 [facility] 6 6 PHYSICIAN T VISIT S GROUP 15 MINUTES OFFICE 52129 [facility] [place] OUT[facility] 6 6 PHYSICIAN T VISIT S GROUP 15 MINUTES OFFICE 03453 [facility] [place] [facility] 6 6 PHYSICIAN T VISIT S GROUP 25 MINUTES [facility]OSPITAL [facility] - 6 6 [facility] OUTPATI[facility] INC T PERIODIC 89266 [facility] PREVENTIV 6 6 PHYSICIAN SHASTA E MED EST S GROUP PATIENT 40-64YRS OFFICE 49037 [facility] [place] OUTPATI[facility] 6 6 PHYSICIAN EUG T VISIT S GROUP 15 MINUTES [facility]OSPITAL [facility] - 6 6 [facility] OUTPATIEN INC T OFFICE 57886 [facility] [place] [facility]PAT[facility] 6 6 PHYSICIAN T NEW 30 S GROUP MINUTES [facility] - 6 6 [facility] OUTPAT[facility] INC T OFFICE 15347 [facility] [place] 6 6 PHYSICIAN EUG T VISIT S GROUP 15 MINUTES OFFICE 03229 [facility] [place] [facility]PATI[facility] 6 6 PHYSICIAN T VISIT GROUP 25 MINUTES OFFICE 90121 [facility] CANTRELL OUTPATIEN 6 6 AMA T VISIT CHIROPRAC 15 TIC CENTE MINUTES OFFICE 80029 [facility] [place] OUTPATIEN 6 6 PHYSICIAN T VISIT GROUP 15 MINUTES OFFICE 15761 [facility] CANTRELL OUTPATIEN 6 6 AMA T VISIT CHIROPRAC 15 TIC CENTE MINUTES EMERGENCY 54522 [facility] 6 6 [facility] DEPARTMEN INC T VISIT LOW/MODER SEVERITY [facility]OSPITAL [facility] - 6 6 [facility] OUTPATIEN INC T EMERGENCY 43044 [facility] 6 6 [facility]YSICIAN DEPARTMEN S[facility] T VISIT MODERATE SEVERITY OFFICE 27399 ANTONIO GAGE OUTPATIEN 6 6 [facility] T VISIT HOSPITAL 25 MINUTES OFFICE 56235 [facility] 6 [facility] T VISIT MEDICAL 15 GROUP MINUTES [facility] ANTONIO - 6 6 [facility] OUTPATIEN INC T OFFICE 20148 [facility] [place] OUTPATIEN 6 6 PHYSICIAN STONE T VISIT S GROUP DOMINGO CORBIN 25 MINUTES OFFICE 32850 [facility]IB[facility] ROMAN OUTPATIEN 6 6 JESSIE BOTELLO SHASTA T VISIT 15 MINUTES OFFICE 32650 [facility] OUTPATIEN 6 6 PHYSICIAN HUGH T VISIT S GROUP 15 MINUTES OFFICE 51547 [facility] OUTPATIEN 6 6 PHYSICIAN HUGH T VISIT S GROUP 15 MINUTES OFFICE 95172 ANTONIO EASLEY OUTPATIEN 6 6 [facility] VISIT HOSP[facility] 15 MINUTES HOSPITAL [facility] - [address] [facility] ANTONIO - 5 5 [facility] OUTPATIEN INC T OFFICE 51075 ROSIBEL ROMAN OUTPATIEN 5 5 JESSIE BOTELLO SHASTA T VISIT 15 MINUTES [facility] T OFFICE [id number] ROSIBEL ROMAN OUTPATIEN 5 5 JESSIE BOTELLO SHASTA T VISIT 25 MINUTES OFFICE [id number] EMMIE SALEEM OUTPATIEN 5 5 [facility] T VISIT CHIROPRAC 10 TIC CENTE MINUTES OFFICE 16703 ANTONIO BELTRAN OUTPATIEN 5 5 [facility] VISIT [facility] 15 MINUTES [facility]OSP[facility] 5 5 [facility] ANTON[facility] - 5 5 [facility] T EMERGENCY 24421 [facility] 5 5 [facility]PART[facility] T VISIT MODERATE SEVERITY EMERGENCY 66923 ALYSIA JAMISON 5 5 [facility] T VISIT HIGH/URGE NT SEVERITY EMERGENCY 84038 [facility]TONIO 5 5 [facility] T VISIT HIGH/URGE NT SEVERITY [facility]OSP[facility] - 5 5 [facility] T EMERGENCY [id number] ANTONIO Apodaca 5 5 [facility] T VISIT P MODERATE SEVERITY OFFICE 35472 ROSIBEL ROMAN OUTPATIEN 5 5 JESSIE VEGAS T VISIT 15 MINUTES [facility]OS[facility] - 5 5 [facility] T OFFICE 45183 ROSIBEL ROMAN OUTPATIEN 5 5 JESSIE VEGAS T VISIT 15 MINUTES [facility] - 5 5 [facility] T OFFICE 77009 ROSIBEL ROMAN OUTPATIEN 5 5 JESSIE VEGAS T VISIT 15 MINUTES [facility] - 5 5 [facility] T OFFICE 35510 ROSIBEL ROMAN OUTPATIEN 5 5 JESSIE VE[facility]AS T VISIT 15 MINUTES [facility] - 5 5 [facility] T Emergency KAMILLE Jamison MD (ER) 3 05:26 3 05:27 [facility]
--- OUTSIDE RECORDS SUMMARY | 2017-03-15 22:07 | External Medical Summary Rpt | CCD ---
Author Author , OMAIRA Organization PATRICIARAJI Address Unknown Phone [email or web address] Care Team Providers Care Graphics Production Specialist Name Role Phone [facility] Unavailable Unavailable MEDICAL GROUP, [facility] HERNANDEZ TER, HERNANDEZ TER Unavailable [...] [facility] YOLANDE THORPE PA-C Unavailable Unavailable YOLANDE ALANIZ PA-C CORBIN SPARROW JADEN, SPARROW JADEN Unavailable Unavailable TUCKER, TUCKER Unavailable Unavailable ARAGON, ARAGON Unavailable Unavailable FRYMAN, FRYMAN Unavailable Unavailable FRYMAN EUG, FRYMAN Unavailable Unavailable EUG JEFFRY, JEFFRY Unavailable Unavailable JEFFRY HUGH, JEFFRY Unavailable Unavailable HUGH ROSIBEL ROMAN MD, Unavailable Unavailable ROSIBEL ROMAN SHASTA, HARPEL Unavailable Unavailable SHASTA [facility] Unavailable Unavailable INC, [facility] Unavailable [facility]available HOSPITAL, [facility] Unavailable Unavailable HOSPITAL P, [facility]PITAL P [facility], Unavailable Unavailable [facility], Unavailable Unavailable [facility] CANTRELL AMA, CANTRELL Unavailable Unavailable AMA DEY, DEY Unavailable Unavailable [facility] Unavailable Unavailable [facility], [facility] Janes Jamison MD, [...] Diagnosis DOS Provider Status [id number] OTHER 01-25-2017 [facility] OBESITY DUE PHYSICIANS TO EXCESS GROUP CALORIES J4520 MILD 01-25-2017 [facility] INTERMITTEN PHYSICIANS T ASTHMA GROUP UNCOMPLICAT ED M2550 PAIN IN 01-25-2017 [facility] UNSPECIFIED PHYSICIANS JOINT GROUP R739 HYPERGLYCEM 01-25-2017 [facility] IA PHYSICIANS UNSPECIFIED GROUP Z6841 BODY MASS 01-25-2017 [facility] INDEX BMI PHYSICIANS 40.0-44.9 GROUP ADULT R0602 SHORTNESS 01-24-2017 [facility] OF BREATH MEDICAL IMAGING ASS R0989 OTH SPEC SX 01-24-2017 [facility] & SIGNS MEDICAL INVLV THE IMAGING ASS CIRC & RESP SYS J40 BRONCHITIS 01-16-2017 [facility] NOT PHYSICIANS SPECIFIED GROUP ACUTE OR CHRONIC R5381 OTHER 01-15-2017 [facility] MALAISE PHYSICIANS GROUP I10 ESSENTIAL 01-14-2017 [facility] PRIMARY [facility]YSICIANS, HYPERTENSIO PLLC N J040 ACUTE 01-14-2017 [facility] J209 ACUTE 01-14-2017 [facility] BRONCHITIS PHYSICIANS, UNSPECIFIED PLLC R0600 DYSPNEA 01-14-2017 [facility] UNSPECIFIED MEDICAL IMAGING ASS J270NTC UNS ADVERS 01-14-2017 [facility] EFFECT PHYSICIANS, DRUG/MEDICA PLLC MENT INITIAL ENCNTR J189 PNEUMONIA 01-12-2017 [facility] UNSPECIFIED [facility] ORGANISM INC H6504 ACUTE 01-09-2017 [facility] SEROUS PHYSICIAN OTITIS GROUP MEDIA RECURRENT RIGHT EAR J0101 ACUTE 01-09-2017 [facility] RECURRENT PHYSICIAN MAXILLARY GROUP SINUSITIS I209 ANGINA 12-07-2016 [facility] PECTORIS [facility] UNSPECIFIED INC R9431 ABNORMAL 12-07-2016 [facility] ELECTROCARD [facility] IOGRAM INC Z8249 FAMILY HX 12-07-2016 [facility] ISCHEMIC [facility] HRT DZ OTH INC DZ CIRC SYSTEM H6693 OTITIS 12-03-2016 [facility] MEDIA PHYSICIAN UNSPECIFIED GROUP BILATERAL J0100 ACUTE 12-03-2016 [facility] MAXILLARY PHYSICIAN SINUSITIS GROUP UNSPECIFIED R002 PALPITATION 12-01-2016 [facility], [facility] R079 CHEST PAIN 12-01-2016 [facility] UNSPECIFIED MEDICAL IMAGING ASS E8770 FLUID 11-29-2016 [facility] OVERLOAD [facility] UNSPECIFIED INC Z0389 ENCOUNTER 11-16-2016 [facility] OBSERV OT MEDICAL SUSPCT DZ & IMAGING ASS COND RULED OUT N99387S SPRAIN UNS 10-20-2016 [facility] LIGAMENT PHYSICIANS LEFT ANKLE GROUP INITIAL ENCOUNTER J069 ACUTE UPPER 10-16-2016 [facility] H[facility]P RESPIRATORY INC INFECTION UNSPECIFIED P38355 PRIMARY 10-10-2016 [facility] OSTEOARTHRI MEDICAL TIS LEFT IMAGING ASS ANKLE AND FOOT Y11623 PAIN IN 10-10-2016 [place] RIGHT CHIROPRACTI SHOULDER C CENTE M5381 OTHER SPEC 10-10-2016 [place] DORSOPATHIE CHIROPRACTI S C CENTE OCCIPITO-AT HEATHER-AXIAL RGN M5386 OTHER 10-10-2016 [place] SPECIFIED CHIROPRACTI DORSOPATHIE C CENTE S LUMBAR REGION M5442 LUMBAGO 10-10-2016 [place] WITH CHIROPRACTI SCIATICA C CENTE LEFT SIDE M546 PAIN IN 10-10-2016 [place] THORACIC CHIROPRACTI SPINE C CENTE U43646 PAIN IN 10-10-2016 [facility] LEFT FOOT MEDICAL IMAGING ASS M9906 SEGMENTAL & 10-10-2016 [place] SOMATIC CHIROPRACTI DYSFUNCTION C CENTE LOWER EXTREMITY B38629 ACUTE 06-29-2016 [facility] SUPPURATIVE PHYSICIANS OM W/O GROUP RUPT EAR DRUM RT EAR R109 UNSPECIFIED 06-29-2016 [facility] ABDOMINAL PHYSICIANS PAIN GROUP J029 ACUTE 05-04-2016 [facility] PHARYNGITIS PHYSICIANS GROUP UNSPECIFIED Z1231 ENCOUNTER 05-01-2016 [facility] SCREENING MEDICAL MAMMO MALIG IMAGING ASS NEOPLASM BREAST N951 MENOPAUSAL 04-25-2016 [facility] AND FEMALE PHYSICIANS CLIMACTERIC GROUP STATES O00897 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[facility] AEGIS CONSOLE OPERATOR TRACK EXAM PHYSICIANS GENERAL RTN GROUP W/O ABNORMAL FIND Z1212 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[facility] SCREENING PHYSICIANS MALIGNANT GROUP NEOPLASM RECTUM J0390 ACUTE 04-13-2016 [facility] TONSILLITIS PHYSICIANS GROUP UNSPECIFIED M542 CERVICALGIA 03-30-2016 [place] CHIROPRACTI C CENTE Q479ZJX SPRAIN 03-30-2016 [place] LIGAMENTS CHIROPRACTI LUMBAR C CENTE SPINE INITIAL ENCOUNTER S24414G STRAIN 03-30-2016 [place] MUSCLE CHIROPRACTI FASCIA & C CENTE TENDON LOW BACK INITIAL M18682 PAIN IN 03-28-2016 [facility] LEFT HAND MEDICAL IMAGING ASS M7989 OTHER 03-28-2016 [facility] SPECIFIED MEDICAL SOFT TISSUE IMAGING ASS DISORDERS 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 M654 RADIAL 03-15-2016 [facility] STYLOID PHYSICIANS TENOSYNOVIT GROUP IS DE QUERVAIN N02718 GANGLION 03-15-2016 [facility] RIGHT WRIST PHYSICIANS GROUP F24547 GANGLION 03-15-2016 [facility] LEFT WRIST PHYSICIANS GROUP U49854 PAIN IN 03-07-2016 [facility] LEFT WRIST MEDICAL IMAGING ASS F28952 GANGLION 03-07-2016 [facility] RIGHT HAND PHYSICIANS GROUP S83986 GANGLION 03-07-2016 [facility] LEFT HAND PHYSICIANS GROUP X21344 PAIN IN 03-07-2016 [facility] RIGHT HAND MEDICAL IMAGING ASS M9903 SEGMENTAL & 01-21-2016 [place] S[facility]ATIC CHIROPRACTI DYSFUNCTION C CENTE OF LUMBAR REGION M545 LOW BACK 01-11-2016 [place] PAIN CHIROPRACTI C CENTE K1120 SIALOADENIT 01-04-2016 [facility] IS PHYSICIANS, UNSPECIFIED PLLC K1121 ACUTE 01-04-2016 [facility] SIALOADENIT [facility] IS INC J329 CHRONIC 12-27-2015 [facility] SINUSITIS [facility] J0140 ACUTE 11-22-2015 [facility] S MEDICAL UNSPECIFIED GROUP H6980 OTHER SPEC 11-09-2015 [facility] DISORDERS PHYSICIANS EUSTACHIAN GROUP TUBE UNS EAR Q80695 UNSPECIFIED 11-09-2015 [facility] ASTHMA PHYSICIANS UNCOMPLICAT GROUP ED R5383 OTHER 11-09-2015 [facility] FATIGUE PHYSICIANS GROUP Z840 FAMILY 11-09-2015 [facility] HISTORY PHYSICIANS DISEASES GROUP SKIN & SUBQ TISSUE Z0100 ENCOUNTER 11-04-2015 [facility] EXAM EYES & GRE VISION W/O ABNORMAL FIND H6690 OTITIS 09-22-2015 [facility] MEDIA PHYSICIANS UNSPECIFIED GROUP UNSPECIFIED EAR C60026 OTHER ACUTE 09-12-2015 [facility]AT [facility] DOMINICK OM RECURRENT BILAT J0190 ACUTE 09-12-2015 [facility] D259 LEIOMYOMA 06-03-2015 [facility] UNSPECIFIED K660 PERITONEAL 06-03-2015 [facility] ADHESIONS [facility] POSTPROC INC POSTINFECTI ON N736 FEMALE 06-03-2015 [facility] PELVIC PHYSICIANS PERITONEAL GROUP ADHESIONS POSTINFECTI VE N800 ENDOMETRIOS 06-03-2015 [facility] IS OF [facility] UTERUS N831 CORPUS 06-03-2015 [facility] N8320 UNSPECIFIED 06-03-2015 [facility] OVARIAN PHYSICIANS CYSTS GROUP N856 INTRAUTERIN 06-03-2015 [facility] E [facility] N938 OTHER SPEC 06-03-2015 [facility] ABNORMAL PHYSICIANS UTERINE & GROUP VAGINAL BLEEDING R102 PELVIC AND 06-03-2015 [facility] PERINEAL [facility] PAIN INC B9689 OTH SPEC 05-24-2015 ROSIBEL Ceballos BACTERIAL JESSIE BOTELLO AGNT CAUSE DZ CLASSIFIED ELSW N760 ACUTE 05-24-2015 ROSIBEL Ceballos VAGINITIS JESSIE BOTELLO N38513 ENCOUNTER 05-24-2015 [facility] FOR OTHER [facility] PREPROCEDUR INC AL EXAMINATION N852 HYPERTROPHY 05-10-2015 [facility] ASS N9489 OTH COND 05-04-2015 ROSIBEL Ceballos ASSOC W/FE JESSIE BOTELLO GEN ORGN & MENSTRUAL CYCL 4019 UNSPECIFIED 02-03-2015 [facility] N 85224 ASTHMA, 02-03-2015 [facility] 5990 URINARY 02-03-2015 [facility]OSP[facility] SITE NOT SPECIFIED 86626 ABDOMINAL 01-05-2015 [facility] PAIN OTHER [facility] SPECIFIED INC SITE 38013 OTHER 11-03-2014 [facility] SPECIFIED MEDICAL DISORDER OF IMAGING ASS KIDNEY AND URETER 47712 ABDOMINAL 11-03-2014 [facility] PAIN RIGHT [facility] UPPER INC QUADRANT V1301 PERSONAL 11-03-2014 [facility] HISTORY OF [facility] URINARY INC CALCULI 462 ACUTE 10-07-2014 [facility] PHARYNGITIS [facility] P 45432 ACUTE 10-07-2014 [facility] LARYNGITIS, [facility] P MENTION OF OBSTRUCTIO 19236 UNSPECIFIED 09-14-2014 ROSIBEL Ceballos VAGINITIS JESSIE BOTELLO [...] STATES V7612 OTHER 06-16-2014 [facility] SCREENING [facility] MAMMOGRAM INC 401.9 401.9 12-11[facility]2012 [facility].90 493.90 12-11-2012 [place] ASTHMA, [facility] Allergies, Adverse Reactions, Alerts Type Drug [...] NO 00 2- 9- 00 01 ve RI 52 20 20 19 AI IL 00 [...] OR 60 4- 2- 00 01 ve CA 31 20 20 19 AI N 30 [...] YL 15 1- 8- 00 01 ve RI 02 20 20 19 AI ED 20 [...] NO 00 7- 1- 00 01 ve RI 52 20 20 19 AI IL 00 [...] NO 00 9- 4- 00 01 ve RI 52 20 20 17 AI IL 00 [...] SE 80 5- 4- 00 01 ve CA 21 20 20 18 AI DE 61 [...] NO 00 3- 6- 00 01 ve RI 52 20 20 17 AI IL 00 [...] NO 00 6- 9- 00 01 ve RI 52 20 20 17 AI IL 00 [...] NO 00 2- 7- 00 01 ve RI 52 20 20 16 AI IL 00 [...] MG #3 TA 93 BL 8 ET RI 59 01 02 10 5 00 RI [...] NO 00 5- 0- 00 01 ve RI 52 20 20 16 AI IL 00 [...] MG #3 93 TA 8 BL ET RI 00 12 01 20 10 00 RI Ac OM 60 -2 -2 0. 00 TE ti ET 31 2- 0- 00 01 ve RAMIRES 58 20 20 0 16 AI ZI 65 16 17 36 D NE 4 14 PH -D AR M MA SY CY RU P #3 93 8 RI 00 12 01 10 5 00 RI [...] NO 00 5- 3- 00 01 ve RI 52 20 20 16 AI IL 00 [...] DOS Code Location Performer Comment CT THORAX 64292 [facility] MAZARIEGOS W/O 7 MEDICAL CONTRAST IMAGING MATERIAL ASS SMR PRIM 24695 [facility] AL[facility] SRC 7 [facility] GRAM/GIEM INC INC SA STAIN BCT FUNGI/RONI L THERAPEUT 54145 [facility] STONE IC 7 PHYSICIAN PROPHYLAC S GROUP TIC/DX INJECTION SUBQ/IM INJECTION J0696 H STONE 7 PHYSICIAN CEFTRIAXO S GROUP NE SODIUM PER 250 MG CUL BACT 24845 [facility] AL[facility]Z XCPT 7 [facility] URINE INC INC BLOOD/STO OL AEROBIC ISOL INJECTION J0696 H STONE 7 PHYSICIAN CEFTRIAXO S GROUP NE SODIUM PER 250 MG THERAPEUT 51991 [facility] STONE IC 7 PHYSICIAN PROPHYLAC S GROUP TIC/DX INJECTION SUBQ/[place] [address] [facility] ALVARE[facility] TROPONIN 7 [facility] QUANTITAT INC INC DOMINICK CREATINE 77472 [facility] ALVAREZ KINASE 7 [facility] TOTAL INC INC FIBRIN 19193 [facility] ALVAREZ DGRADJ 7 [facility] PRODUCTS INC INC D-DIMER QUAL/SEMI ANGIE ECG 25564 [facility] ALVAREZ ROUTINE 7 [facility] ECG INC INC W/LEAST 12 LDS TRCG ONLY W/O I&R BLOOD 30901 [facility] ALVAREZ COUNT 7 [facility] COMPLETE INC INC AUTO&AUTO DIFRNTL WBC ECG 78251 [facility] TREADWELL ROUTINE 7 [facility] W/LEAST P 12 LDS I&R ONLY GLUC BLD 93442 [facility] ALVAREZ GLUC MNTR 7 [facility] DEV INC INC CLEARED FDA SPEC HOME USE NATRIURET 26394 [facility] ALVAREZ IC 7 [facility] PEPTIDE INC INC THYROID 38299 [facility] ALVAREZ HORM 7 [facility] UPTK/THYR INC INC OID HORMONE BINDING RATIO UNCLASSIF J3490 [facility] ALV[facility]Z IED DRUGS 7 [facility] INC INC COMPREHEN 10042 [facility] AL[facility]Z SIVE 7 [facility] METABOLIC INC INC PANEL RADIOLOGI 33616 [facility] ALVAREZ C 7 [facility] EXAMINATI INC INC [place] [address] [facility] ALVAREZ THYROXINE 7 [facility] TOTAL INC INC CREATINE 08252 [facility] ALVAREZ KINASE MB 7 [facility] [place] [address] [facility] ALVAREZ THYROID 7 [facility] STIMULATI INC INC NG HORMONE TSH RADIOLOGI 10248 [facility] ALVAREZ C EXAM 7 [facility] CHEST 2 INC INC VIEWS FRONTAL&L ATERAL ECG 08623 [facility] ALVAREZ ROUTINE 7 [facility] ECG INC INC W/LEAST 12 LDS TRCG ONLY W/O I&R THERAPEUT 69419 [facility] FRYMAN IC 7 PHYSICIAN PROPHYLAC GROUP TIC/DX INJECTION SUBQ/IM INJECTION J0696 [facility] FRYMAN 7 PHYSICIAN CEFTRIAXO GROUP NE SODIUM PER 250 MG BLOOD 20061 [facility] ALVAREZ COUNT 7 [facility] COMPLETE INC INC AUTO&AUTO DIFRNTL [facility] G0378 [facility] ALV[facility]Z OBSERVATI 7 [facility] ON INC INC SERVICE PER HOUR BASIC 19792 [facility] ALVAREZ METABOLIC 7 [facility] PANEL INC INC CALCIUM TOTAL COMPREHEN 73070 [facility] ALVAREZ SIVE 7 [facility] METABOLIC INC INC PANEL CREATINE 49832 [facility]IO ALVAREZ KINASE MB 7 [facility] [place] [address] [facility] ALVAREZ THYROID 7 [facility]OS[facility] STIMULATI [place] [address] AN[facility]IO ALVAREZ THYROXINE 7 [facility] TOTAL INC INC RADIOLOGI 43164 ANOTNIO ALVAREZ C 7 [facility] EXAMINATI INC INC ON CHEST SINGLE [facility]IEW [facility] G0378 [facility] ALVAREZ OBSERVATI 7 [facility] ON INC INC SERVICE PER HOUR OBSERVATI 49081 [facility] JEFFRY ON/INPATI 7 PHYSICIAN ENT S GROUP HOSPITAL CARE 50 MINUTES THYROID 89083 [facility]IO ALVAREZ HORM 7 [facility] UPTK/THYR INC INC OID HORMONE BINDING RATIO UNCLASSIF J3490 [facility] ALVAREZ IED DRUGS 7 [facility] INC INC ECG 66163 [facility] DEY ROUTINE 7 PHYSICIAN ECG S, PLLC W/LEAST 12 LDS [place] [address] AN[facility]IO ALVAREZ TROPONIN 7 [facility] QUANTITAT INC INC DOMINICK BLOOD 09522 [facility] ALVAREZ COUNT 7 [facility] COMPLETE INC INC AUTO&AUTO DIFRNTL WBC CREATINE 70695 [facility] ALVAREZ KINASE 7 [facility] TOTAL INC INC ECG 17481 [facility] ALVAREZ ROUTINE 7 [facility] ECG INC INC W/LEAST 12 LDS TRCG ONLY W/O I&R ECHO 71751 [facility]IO ALVAREZ TTHRC R-T 7 [facility] 2D INC INC W/WOM-MOD E COMPL SPEC&COLR D ECG 99476 [facility]IO TREADWELL ROUTINE 7 [facility] W/LEAST P 12 LDS I&R ONLY RHYTHM 51991 [facility] STONE ECG 1-3 7 PHYSICIAN LEADS S GROUP W/INTERPR ETATION & REPORT RADIOLOGI 27049 [facility] C EXAM 7 MEDICAL CHEST 2 IMAGING VIEWS ASS FRONTAL&L ATERAL COLLECTIO 94876 [facility] STONE N VENOUS 7 PHYSICIAN BLOOD S GROUP VENIPUNCT URE IAADIADOO 45255 [facility] ALVAREZ 7 [facility] INFLUENZA INC INC IAADIADOO 67788 [facility] ALVAREZ 7 [facility] [place]REPTOC[place] [address] [place] [facility] 1/> AREAS 7 EACH 15 CHIROPRAC MIN TIC CENTE NEUROMUSC REEDUCA CHIROPRAC 45142 [place] [facility] TIC 7 MANIPULAT CHIROPRAC DOMINICK TX TIC CENTE SPINAL 1-2 REGIONS MANUAL 87244 [place] T[facility] THERAPY 7 TQS 1/> CHIROPRAC REGIONS TIC CENTE EACH 15 MINUTES CHIROPRAC 42285 [place] [facility] TIC 7 MANIPLTV CHIROPRAC TX TIC CENTE EXTRASPIN AL 1/> REGION RADEX 48053 [facility] FOOT 7 MEDICAL COMPLETE IMAGING MINIMUM 3 ASS VIEWS INJECTION J1100 [facility] TYSON 7 PHYSICIAN DEXAMETHO S GROUP SONE SODIUM PHOSPHATE 1 MG THERAPEUT 39889 [facility] [place] IC 7 PHYSICIAN PROPHYLAC S GROUP TIC/DX INJECTION SUBQ/IM MANUAL 96700 [place] THERAPY 7 TQS 1/> CHIROPRAC REGIONS TIC CENTE EACH 15 MINUTES CHIROPRAC 36236 [place] T[place] TIC 7 MANIPULAT CHIROPRAC DOMINICK TX TIC CENTE SPINAL 1-2 REGIONS URNLS DIP 24976 [facility] 7 PHYSICIAN PHYSICIAN STICK/TAB S GROUP S GROUP LET RGNT NON-AUTO W/O MICRSCP THERAPEUT 08516 [facility] STONE IC 7 PHYSICIAN PROPHYLAC S GROUP TIC/DX INJECTION SUBQ/IM INJECTION J0696 [facility] STONE 7 PHYSICIAN CEFTRIAXO S GROUP NE SODIUM PER 250 MG INJECTION J0696 [facility] STONE 6 PHYSICIAN CEFTRIAXO S GROUP NE SODIUM PER 250 MG THERAPEUT 51417 [facility] STONE IC 6 PHYSICIAN PROPHYLAC S GROUP TIC/DX INJECTION SUBQ/IM THERAPEUT 76519 [facility] FRYMAN IC 6 PHYSICIAN PROPHYLAC S GROUP TIC/DX INJECTION SUBQ/IM INJECTION J0696 [facility] FRYMAN 6 PHYSICIAN CEFTRIAXO S GROUP NE SODIUM PER 250 MG SCREENING G0202 [facility] ALVAREZ 6 [facility] MAMMOGRAP INC INC HY MICHELE INCL CAD WHEN PERFORMD COMPUTER- 36926 AN[facility]IO ALVAREZ AIDED 6 [facility] DETECTION INC INC SCREENING MAMMOGRAP HY CULTURE 88043 [facility] HARPEL CHLAMYDIA 6 PHYSICIAN SHASTA ANY S GROUP SOURCE CYTP C/V 91222 BIO BIO AUTO THIN 6 REFERNCE REFERNCE LYR LABORATOR LABORATOR PREPJ SCR IES IES MNL RESCR PHYS IADNA 99481 [facility] NEISSERIA 6 PHYSICIAN PHYSICIAN S GROUP S GROUP GONORRHOE AE DIRECT PROBE TQ IADNA 37366 BIO BIO NEISSERIA 6 REFERNCE REFERNCE LABORATOR LABORATOR GONORRHOE IES IES AE AMPLIFIED PROBE TQ IADNA NOS 34427 BIO BIO 6 REFERNCE REFERNCE AMPLIFIED LABORATOR LABORATOR PROBE TQ IES IES EACH ORGANISM IADNA 73496 BIO BIO CHLAMYDIA 6 REFERNCE REFERNCE LABORATOR LABORATOR TRACHOMAT IES IES IS AMPLIFIED PROBE TQ URINLS 21433 [facility] HARPEL DIP 6 PHYSICIAN SHASTA STICK/TAB S GROUP LET REAGNT NON-AUTO MICRSCPY IADNA 16438 BIO BIO TRICHOMON 6 REFERNCE REFERNCE LABORATOR LABORATOR VAGINALIS IES IES AMPLIFIED PROBE TECH INJECTION J0696 [facility] FRYMAN 6 PHYSICIAN EUG CEFTRIAXO S GROUP NE SODIUM PER 250 MG THERAPEUT 98768 [facility] FR[facility]MAN IC 6 PHYSICIAN EUG PROPHYLAC S GROUP TIC/DX INJECTION SUBQ/IM CHIROPRAC 43866 [place] CANTRELL TIC 6 AMA MANIPLTV CHIROPRAC TX TIC CENTE EXTRASPIN AL 1/> REGION MANUAL 18993 [place] CANTRELL THERAPY 6 AMA TQS 1/> CHIROPRAC REGIONS TIC CENTE EACH 15 MINUTES CHIROPRAC 93379 [place] TIC 6 AMA MANIPULAT CHIROPRAC DOMINICK TX TIC CENTE SPINAL 3-4 REGIONS MRI UPPER 38726 ANTONIO ALVAREZ 6 [facility] EXTREMITY INC INC OTH THAN JT W/O CONTR MATRL APPL 88819 [place] MODALITY 6 AMA 1/> AREAS CHIROPRAC TIC CENTE ULTRASOUN D EA 15 MIN CHIROPRAC 11909 [place] TIC 6 AMA MANIPULAT CHIROPRAC DOMINICK TX TIC CENTE SPINAL 3-4 REGIONS MANUAL 70874 [place] THERAPY 6 AMA TQS 1/> CHIROPRAC REGIONS TIC CENTE EACH 15 MINUTES APPL 77515 [place] MODALITY 6 AMA 1/> AREAS [facility] ELEC TIC CENTE STIMJ UNATTENDE D APPL 53566 [place] MODALITY 6 AMA 1/> AREAS [facility] ELEC TIC CENTE STIMJ UNATTENDE D RADEX 34213 ANTONIO ALVAREZ HAND 2 6 [facility] VIEWS INC INC THERAPEUT 10725 [facility] IC 6 PHYSICIAN PHYSICIAN PROPHYLAC S GROUP S GROUP TIC/DX INJECTION SUBQ/IM MANUAL 38766 [place] THERAPY 6 AMA TQS 1/> CHIROPRAC REGIONS TIC CENTE EACH 15 MINUTES CHIROPRAC 81346 [place] TIC 6 AMA MANIPULAT CHIROPRAC DOMINICK TX TIC CENTE SPINAL 3-4 REGIONS APPL 60019 [place] MODALITY 6 AMA 1/> AREAS CH[facility]OPRAC TIC CENTE ULTRASOUN D EA 15 MIN RADEX 71021 [facility] WRIST 2 6 MEDICAL VIEWS IMAGING ASS APPL 93447 [place] MODALITY 6 AMA 1/> AREAS CH[facility]OPRAC TIC CENTE ULTRASOUN D EA 15 MIN CHIROPRAC 03152 [place] TIC 6 AMA MANIPULAT CHIROPRAC DOMINICK TX TIC CENTE SPINAL 3-4 REGIONS MANUAL 92914 [place] THERAPY 6 AMA TQS 1/> CHIROPRAC REGIONS TIC CENTE EACH 15 MINUTES APPL 23331 [place] MODALITY 6 AMA 1/> AREAS CHIROPRAC ELEC TIC CENTE STIMJ UNATTENDE D APPL 25278 [place] MODALITY 6 AMA 1/> AREAS CHIROPRAC ELEC TIC CENTE STIMJ UNATTENDE D CHIROPRAC 19054 [place] TIC 6 AMA MANIPULAT CHIROPRAC DOMINICK TX TIC CENTE SPINAL 3-4 REGIONS MANUAL 79712 [place] THERAPY 6 AMA TQS 1/> CHIROPRAC REGIONS TIC CENTE EACH 15 MINUTES APPL 44088 [place] MODALITY 6 AMA 1/> AREAS CHIROPRAC TIC CENTE ULTRASOUN D EA 15 MIN APPL 70149 [place] MODALITY 6 AMA 1/> AREAS CHIROPRAC TIC CENTE ULTRASOUN D EA 15 MIN MANUAL 08884 [place] THERAPY 6 AMA TQS 1/> CHIROPRAC REGIONS TIC CENTE EACH 15 MINUTES CHIROPRAC 72140 [place] TIC 6 AMA MANIPULAT CHIROPRAC DOMINICK TX TIC CENTE SPINAL 3-4 REGIONS APPL 08513 [place] MODALITY 6 AMA 1/> AREAS CHIROPRAC ELEC TIC CENTE STIMJ UNATTENDE D APPL 20013 [place] MODALITY 6 AMA 1/> AREAS CHIROPRAC ELEC TIC CENTE STIMJ UNATTENDE D CHIROPRAC 96495 [place] TIC 6 AMA MANIPULAT CHIROPRAC DOMINICK TX TIC CENTE SPINAL 3-4 REGIONS MANUAL 58025 [place] THERAPY 6 AMA TQS 1/> CHIROPRAC REGIONS TIC CENTE EACH 15 MINUTES APPL 41073 [place] MODALITY 6 AMA 1/> AREAS CHIROPRAC TIC CENTE ULTRASOUN D EA 15 MIN MANUAL 77769 [place] THERAPY 6 AMA TQS 1/> CHIROPRAC REGIONS TIC CENTE EACH 15 MINUTES CHIROPRAC 22795 [place] TIC 6 AMA MANIPULAT CHIROPRAC DOMINICK TX TIC CENTE SPINAL 3-4 REGIONS CHIROPRAC 25538 [place] TIC 6 AMA MANIPLTV CHIROPRAC TX TIC CENTE EXTRASPIN AL 1/> REGION APPL 05418 [place] MODALITY 6 AMA 1/> AREAS CHIROPRAC ELEC TIC CENTE STIMJ UNATTENDE D APPL 55112 [place] CANTRELL MODALITY 6 AMA 1/> AREAS CHIROPRAC TIC CENTE ULTRASOUN D EA 15 MIN THERAPEUT 88964 [place] C[place] IC PX 1/> 6 AMA AREAS CHIROPRAC EACH 15 TIC CENTE MIN EXERCISES APPL 54317 [place] MODALITY 6 AMA 1/> AREAS CHIROPRAC TIC CENTE ULTRASOUN D EA 15 MIN APPL 89575 [place] MODALITY 6 AMA 1/> AREAS CHIROPRAC ELEC TIC CENTE STIMJ UNATTENDE D CHIROPRAC 23479 [place] TIC 6 AMA MANIPLTV CHIROPRAC TX TIC CENTE EXTRASPIN AL 1/> REGION CHIROPRAC 87825 [place] TIC 6 AMA MANIPULAT CHIROPRAC DOMINICK TX TIC CENTE SPINAL 3-4 REGIONS MANUAL 28765 [place] THERAPY 6 AMA TQS 1/> CHIROPRAC REGIONS TIC CENTE EACH 15 MINUTES APPL 85573 [place] C[place] MODALITY 6 AMA 1/> AREAS CHIROPRAC TRACTION TIC CENTE MECHANICA L CHIROPRAC 39295 [place] TIC 6 AMA MANIPLTV CHIROPRAC TX TIC CENTE EXTRASPIN AL 1/> REGION MANUAL 69631 [place] C[place] THERAPY 6 AMA TQS 1/> CHIROPRAC REGIONS TIC CENTE EACH 15 MINUTES CHIROPRAC 65485 [place] TIC 6 AMA MANIPULAT CHIROPRAC DOMINICK TX TIC CENTE SPINAL 3-4 REGIONS APPL 68266 [place]ANT[place] MODALITY 6 AMA 1/> AREAS CHIROPRAC ELEC TIC CENTE STIMJ UNATTENDE D APPL 94510 [place] MODALITY 6 AMA 1/> AREAS CHIROPRAC TIC CENTE ULTRASOUN D EA 15 MIN APPL 77663 [place] MODALITY 6 AMA 1/> AREAS CHIROPRAC TRACTION TIC CENTE MECHANICA L APPL 32490 [place] MODALITY 6 AMA 1/> AREAS CHIROPRAC TRACTION TIC CENTE MECHANICA L APPL 06101 [place] C[place] MODALITY 6 AMA 1/> AREAS CHIROPRAC TIC CENTE ULTRASOUN D EA 15 MIN APPL 60521 [place] MODALITY 6 AMA 1/> AREAS CHIROPRAC ELEC TIC CENTE STIMJ UNATTENDE D CHIROPRAC 91135 [place] TIC 6 AMA MANIPULAT CHIROPRAC DOMINICK TX TIC CENTE SPINAL 3-4 REGIONS MANUAL 25963 [place] THERAPY 6 AMA TQS 1/> CHIROPRAC REGIONS TIC CENTE EACH 15 MINUTES CHIROPRAC 35509 [place] TIC 6 AMA MANIPLTV CHIROPRAC TX TIC CENTE EXTRASPIN AL 1/> REGION CHIROPRAC 09939 [place] TIC 6 AMA MANIPULAT CHIROPRAC DOMINICK TX TIC CENTE SPINAL 3-4 REGIONS CHIROPRAC 67430 [place] TIC 6 AMA MANIPLTV CHIROPRAC TX TIC CENTE EXTRASPIN AL 1/> REGION MANUAL 75076 [place] C[place] THERAPY 6 AMA TQS 1/> CHIROPRAC REGIONS TIC CENTE EACH 15 MINUTES APPL 76558 [place] CANT[place] MODALITY 6 AMA 1/> AREAS CHIROPRAC ELEC TIC CENTE STIMJ UNATTENDE D APPL 50005 [place] CANT[place] MODALITY 6 AMA 1/> AREAS CHIROPRAC TIC CENTE ULTRASOUN D EA 15 MIN APPL 03217 [place] MODALITY 6 AMA 1/> AREAS CHIROPRAC TRACTION TIC CENTE MECHANICA L APPL 77101 [place] MODALITY 6 AMA 1/> AREAS CHIROPRAC TIC CENTE ULTRASOUN D EA 15 MIN APPL 72043 [place] MODALITY 6 AMA 1/> AREAS CHIROPRAC ELEC TIC CENTE STIMJ UNATTENDE D CHIROPRAC 97803 [place] TIC 6 AMA MANIPLTV CHIROPRAC TX TIC CENTE EXTRASPIN AL 1/> REGION CHIROPRAC 97482 [place] TIC 6 AMA MANIPULAT CHIROPRAC DOMINICK TX TIC CENTE SPINAL 3-4 REGIONS MANUAL 99775 [place] THERAPY 6 AMA TQS 1/> CHIROPRAC REGIONS TIC CENTE EACH 15 MINUTES RADEX 29134 [place] C[place] SPINE 6 AMA LUMBOSACR CHIROPRAC AL 2/3 TIC CENTE VIEWS APPL 07779 [place] CANT[place] MODALITY 6 AMA 1/> AREAS CHIROPRAC TRACTION TIC CENTE MECHANICA L CHIROPRAC 86728 [place] TIC 6 AMA MANIPLTV CHIROPRAC TX TIC CENTE EXTRASPIN AL 1/> REGION APPL 99639 [place] CANT[place] MODALITY 6 AMA 1/> AREAS CHIROPRAC TIC CENTE ULTRASOUN D EA 15 MIN MANUAL 10519 [place] CANT[place] THERAPY 6 AMA TQS 1/> CHIROPRAC REGIONS TIC CENTE EACH 15 MINUTES CHIROPRAC 72751 [place] TIC 6 AMA MANIPULAT CHIROPRAC DOMINICK TX TIC CENTE SPINAL 3-4 REGIONS APPL 65045 [place]ANT[place] MODALITY 6 AMA 1/> AREAS CHIROPRAC ELEC TIC CENTE STIMJ UNATTENDE D APPL 06395 [place] CANT[place] MODALITY 6 AMA 1/> AREAS CHIROPRAC TRACTION TIC CENTE MECHANICA L APPL 79288 [place] CANT[place] MODALITY 6 AMA 1/> AREAS CHIROPRAC TRACTION TIC CENTE MECHANICA L APPL 44478 [place] CANT[place] MODALITY 6 AMA 1/> AREAS CHIROPRAC ELEC TIC CENTE STIMJ UNATTENDE D CHIROPRAC 46618 [place] TIC 6 AMA MANIPULAT CHIROPRAC DOMINICK TX TIC CENTE SPINAL 3-4 REGIONS MANUAL 04872 [place] CANT[place] THERAPY 6 AMA TQS 1/> CHIROPRAC REGIONS TIC CENTE EACH 15 MINUTES APPL 74723 [place] CANT[place] MODALITY 6 AMA 1/> AREAS CHIROPRAC TIC CENTE ULTRASOUN D EA 15 MIN CHIROPRAC 43350 [place] TIC 6 AMA MANIPLTV CHIROPRAC TX TIC CENTE EXTRASPIN AL 1/> REGION CHIROPRAC 10793 [place] TIC 6 AMA MANIPLTV CHIROPRAC TX TIC CENTE EXTRASPIN AL 1/> REGION MANUAL 81069 [place] CANT[place] THERAPY 6 AMA TQS 1/> CHIROPRAC REGIONS TIC CENTE EACH 15 MINUTES CHIROPRAC 41389 [place] TIC 6 AMA MANIPULAT CHIROPRAC DOMINICK TX TIC CENTE SPINAL 3-4 REGIONS APPL 22818 [place]ANT[place] MODALITY 6 AMA 1/> AREAS CHIROPRAC ELEC TIC CENTE STIMJ UNATTENDE D APPL 11343 [place] CANT[place] MODALITY 6 AMA 1/> AREAS CHIROPRAC TRACTION TIC CENTE MECHANICA L APPL 93206 [place] CANT[place] MODALITY 6 AMA 1/> AREAS CHIROPRAC TRACTION TIC CENTE MECHANICA L CHIROPRAC 01385 [place] TIC 6 AMA MANIPULAT CHIROPRAC DOMINICK TX TIC CENTE SPINAL 3-4 REGIONS CHIROPRAC 90143 [place] TIC 6 AMA MANIPLTV CHIROPRAC TX TIC CENTE EXTRASPIN AL 1/> REGION MANUAL 74368 [place] CANT[place] THERAPY 6 AMA TQS 1/> CHIROPRAC REGIONS TIC CENTE EACH 15 MINUTES MANUAL 02316 [place] C[place] THERAPY 6 AMA TQS 1/> CHIROPRAC REGIONS TIC CENTE EACH 15 MINUTES CHIROPRAC 37251 [place] TIC 6 AMA MANIPULAT CHIROPRAC DOMINICK TX TIC CENTE SPINAL 3-4 REGIONS CHIROPRAC 24118 [place] TIC 6 AMA MANIPLTV CHIROPRAC TX TIC CENTE EXTRASPIN AL 1/> REGION APPL 16781 [place] CANT[place] MODALITY 6 AMA 1/> AREAS CHIROPRAC TIC CENTE ULTRASOUN D EA 15 MIN APPL 49146 [place] MODALITY 6 1/> AREAS CHIROPRAC CHIROPRAC TRACTION TIC CENTE TIC CENTE MECHANICA L APPL 47134 [place] CANT[place] MODALITY 6 AMA 1/> AREAS CHIROPRAC ELEC TIC CENTE STIMJ UNATTENDE D THERAPEUT 33815 [place] CANTRE[place] IC PX 1/> 6 AMA AREAS CHIROPRAC EACH 15 TIC CENTE MIN EXERCISES APPL 82407 [place] MODALITY 6 1/> AREAS CHIROPRAC CHIROPRAC ELEC TIC CENTE TIC CENTE STIMJ UNATTENDE D APPL 41129 [place] CANT[place] MODALITY 6 AMA 1/> AREAS CHIROPRAC TRACTION TIC CENTE MECHANICA L APPL 96169 [place] CANT[place] MODALITY 6 AMA 1/> AREAS CHIROPRAC TIC CENTE ULTRASOUN D EA 15 MIN CHIROPRAC 03130 [place] TIC 6 AMA MANIPLTV CHIROPRAC TX TIC CENTE EXTRASPIN AL 1/> REGION CHIROPRAC 43284 [place] TIC 6 AMA MANIPULAT CHIROPRAC DOMINICK TX TIC CENTE SPINAL 3-4 REGIONS MANUAL 29310 [place] CANT[place] THERAPY 6 AMA TQS 1/> CHIROPRAC REGIONS TIC CENTE EACH 15 MINUTES MANUAL 00184 [place] CANT[place] THERAPY 6 AMA TQS 1/> CHIROPRAC REGIONS TIC CENTE EACH 15 MINUTES CHIROPRAC 92962 [place] TIC 6 AMA MANIPULAT CHIROPRAC DOMINICK TX TIC CENTE SPINAL 3-4 REGIONS CHIROPRAC 09620 [place] TIC 6 AMA MANIPLTV CHIROPRAC TX TIC CENTE EXTRASPIN AL 1/> REGION APPL 32968 [place] CANT[place] MODALITY 6 AMA 1/> AREAS CHIROPRAC TIC CENTE ULTRASOUN D EA 15 MIN APPL 04957 [place] MODALITY 6 1/> AREAS CHIROPRAC CHIROPRAC TRACTION TIC CENTE TIC CENTE MECHANICA L APPL 22050 [place] CANT[place] MODALITY 6 AMA 1/> AREAS CHIROPRAC ELEC TIC CENTE STIMJ UNATTENDE D APPL 63235 [place] CANT[place] MODALITY 6 AMA 1/> AREAS CHIROPRAC ELEC TIC CENTE STIMJ UNATTENDE D APPL 83960 [place] MODALITY 6 1/> AREAS CHIROPRAC CHIROPRAC TIC CENTE TIC CENTE ULTRASOUN D EA 15 MIN APPL 47874 [place] CANT[place] MODALITY 6 AMA 1/> AREAS CHIROPRAC TRACTION TIC CENTE MECHANICA L CHIROPRAC 52986 EMMIE RENEE PRA TIC 6 MANIPLTV CHIROPRAC TX TIC CENTE EXTRASPIN AL 1/> REGION CHIROPRAC 31567 [place] TIC 6 AMA MANIPULAT CHIROPRAC DOMINICK TX TIC CENTE SPINAL 3-4 REGIONS MANUAL 57926 [place] CANT[place] THERAPY 6 AMA TQS 1/> CHIROPRAC REGIONS TIC CENTE EACH 15 MINUTES MANUAL 54345 [place] CANT[place] THERAPY 6 AMA TQS 1/> CHIROPRAC REGIONS TIC CENTE EACH 15 MINUTES CHIROPRAC 99353 [place] TIC 6 AMA MANIPULAT CHIROPRAC DOMINICK TX TIC CENTE SPINAL 3-4 REGIONS CHIROPRAC 82002 [place] TIC 6 AMA MANIPLTV CHIROPRAC TX TIC CENTE EXTRASPIN AL 1/> REGION APPL 90227 [place] MODALITY 6 1/> AREAS CHIROPRAC CHIROPRAC TRACTION TIC CENTE TIC CENTE MECHANICA L APPL 12427 [place] CANT[place] MODALITY 6 AMA 1/> AREAS CHIROPRAC ELEC TIC CENTE STIMJ UNATTENDE D APPL 31252 [place] MODALITY 6 1/> AREAS CHIROPRAC CHIROPRAC TRACTION TIC CENTE TIC CENTE MECHANICA L APPL 92938 [place] CANT[place] MODALITY 6 AMA 1/> AREAS CHIROPRAC ELEC TIC CENTE STIMJ UNATTENDE D CHIROPRAC 22631 [place] C[place] TIC 6 AMA MANIPLTV CHIROPRAC TX TIC CENTE EXTRASPIN AL 1/> REGION CHIROPRAC 54251 [place] TIC 6 AMA MANIPULAT CHIROPRAC DOMINICK TX TIC CENTE SPINAL 3-4 REGIONS MANUAL 49498 [place] CANT[place] THERAPY 6 AMA TQS 1/> CHIROPRAC REGIONS TIC CENTE EACH 15 MINUTES MANUAL 39772 [place] CANT[place] THERAPY 6 AMA TQS 1/> CHIROPRAC REGIONS TIC CENTE EACH 15 MINUTES CHIROPRAC 75189 [place] TIC 6 AMA MANIPULAT CHIROPRAC DOMINICK TX TIC CENTE SPINAL 3-4 REGIONS CHIROPRAC 09382 [place] TIC 6 AMA MANIPLTV CHIROPRAC TX TIC CENTE EXTRASPIN AL 1/> REGION APPL 97994 [place]ANT[place] MODALITY 6 AMA 1/> AREAS CHIROPRAC ELEC TIC CENTE STIMJ UNATTENDE D APPL 72293 [place]ANT[place] MODALITY 6 AMA 1/> AREAS CHIROPRAC TRACTION TIC CENTE MECHANICA L APPL 75259 [place] CANT[place] MODALITY 6 AMA 1/> AREAS CHIROPRAC TRACTION TIC CENTE MECHANICA L APPL 55326 [place] CANT[place] MODALITY 6 AMA 1/> AREAS CHIROPRAC [place] [address] [place] CANTRELL 1/> AREAS 6 AMA EACH 15 CHIROPRAC MIN TIC CENTE NEUROMUSC REEDUCA CHIROPRAC 01719 [place] TIC 6 AMA MANIPLTV CHIROPRAC TX TIC CENTE EXTRASPIN AL 1/> REGION CHIROPRAC 49418 [place] TIC 6 AMA MANIPULAT CHIROPRAC DOMINICK TX TIC CENTE SPINAL 3-4 REGIONS MANUAL 01800 [place] CANT[place] THERAPY 6 AMA TQS 1/> CHIROPRAC REGIONS TIC CENTE EACH 15 MINUTES MANUAL 00399 [place] CANT[place] THERAPY 6 AMA TQS 1/> CHIROPRAC REGIONS TIC CENTE EACH 15 MINUTES CHIROPRAC 73936 [place] TIC 6 AMA MANIPULAT CHIROPRAC DOMINICK TX TIC CENTE SPINAL 3-4 REGIONS CHIROPRAC 40929 [place] TIC 6 AMA MANIPLTV CHIROPRAC TX TIC CENTE EXTRASPIN AL 1/> [place] [address] [place] CANT[place] 1/> AREAS 6 AMA EACH 15 CHIROPRAC MIN TIC CENTE NEUROMUSC REEDUCA APPL 70082 EMMIE CANTRELL MODALITY 6 AMA 1/> AREAS CHIROPRAC ELEC TIC CENTE STIMJ UNATTENDE D APPL 45126 EMMIE CANTRELL MODALITY 6 AMA 1/> AREAS CHIROPRAC TRACTION TIC CENTE MECHANICA L IAADIADOO 54323 MANDAEN SHANIKA 6 [facility] CCUS GROUP GROUP A BLOOD 29586 ANTONIO ALVAREZ COUNT 6 [facility] COMPLETE INC INC AUTO&AUTO DIFRNTL WBC 25 85657 ANTONIO ALVAREZ HYDROXY 6 [facility] INCLUDES INC INC FRACTIONS IF PERFORMED CREATINE 39763 ANTONIO ALVARE[facility] KINASE 6 [facility] TOTAL INC INC SEDIMENTA 75749 ANTONIO ALVAREZ TIDIAZ RATE 6 [facility] [place] [address] ANTONIO ALVAREZ THYROID 6 [facility] STIMULATI [place] [address] ANTONIO ALVAREZ THYROXINE 6 [facility] TOTAL INC INC ANTINUCLE 24413 ANTONIO ALVAREZ AR 6 [facility] ANTIBODIE INC INC S TYSHAWN C-REACTIV 70138 ANTONIO ALVAREZ E PROTEIN 6 [facility] INC INC DNA 34108 ANTONIO ALVAREZ ANTIBODY 6 [facility] CIRCLE/DO INC INC UBLE STRANDED COMPREHEN 91588 ANTONIO ALVAREZ SIVE 6 [facility] METABOLIC INC INC PANEL COLLECTIO 82709 [facility] YOLANDE N VENOUS 6 PHYSICIAN STONE BLOOD S GROUP PA-C CORBIN VENIPUNCT URE OPHTH 86786 [facility] 6 GRE GRE XM&EVAL COMPRE NEW PT 1/> VST THERAPEUT 44881 [facility] JEFFRY IC 6 PHYSICIAN HUGH PROPHYLAC S GROUP TIC/DX INJECTION SUBQ/IM INJECTION J0696 [facility] JEFFRY 6 PHYSICIAN HUGH CEFTRIAXO S GROUP NE SODIUM PER 250 MG INJECTION J1040 [facility] 6 PHYSICIAN HUGH METHYLPRE S GROUP DNISOLONE ACETATE 80 MG INJECTION J1040 [facility] JEFFRY 6 PHYSICIAN HUGH METHYLPRE S GROUP DNISOLONE ACETATE 80 MG INJECTION [id number] [facility] 6 PHYSICIAN HUGH CEFTRIAXO S GROUP NE SODIUM PER 250 MG THERAPEUT 73030 [facility] IC 6 PHYSICIAN HUGH PROPHYLAC S GROUP TIC/DX INJECTION SUBQ/IM THERAPEUT 04219 [facility] IC 6 [facility] TIC/DX INJECTION SUBQ/IM INJECTION J1100 [address] [facility] S[facility] SODIUM PHOSPHATE 1 MG INJECTION J0561 [address] [facility] N G BENZATHIN E [id number] UNITS ANESTHESI 16549 [facility] JADEN A 5 ANESTH INTRAPERI OF THE TONEAL BLUE LOWER ABD W/LAPS NOS TOTAL 71763 ROSIBEL ROMAN ABDOMINAL 5 JESSIE VEGAS HYSTERECT W/[place] [address] [facility], PICKLESIM SURG 5 [facility] ROSCOPIC EXAM COLLECTIO 99110 ANTONIO ALVAREZ N VENOUS 5 [facility] BLOOD INC INC VENIPUNCT URE CULTURE 74617 ANTONIO ALVAREZ BACTERIAL 5 [facility] INC INC QUANTTATI VE COLONY COUNT URINE SMR PRIM 94843 ROSIBEL ROMAN SRC WET 5 JESSIE VEGAS [facility] NFCT AGT SUSCEPTIB 26561 ANTONIO ALVAREZ LTY STDY 5 [facility] ANTIMICRB INC INC IAL MICRO/AGA R DILUTJ URNLS DIP 85742 [facility]AREZ 5 [facility] STICK/TAB INC INC LET REAGENT AUTO MICROSCOP Y GONADOTRO 00976 ANTONIO ALVAREZ PIN 5 [facility] CHORIONIC INC INC QUALITATI VE BLOOD 48123 ANTONIO ALVAREZ COUNT 5 [facility] COMPLETE INC INC AUTO&[place] [address] [facility] TRANSVAGI 5 [facility]ICAL ARE[facility] NAL IMAGING ASS URINLS 38757 ROSIBEL ROMAN DIP 5 HARPEL MD SHASTA STICK/TAB LET REAGNT NON-AUTO MICRSCPY CHIROPRAC 85682 EMMIE SALEEM TIC 5 GAR MANIPULAT CHIROPRAC DOMINICK TX TIC CENTE SPINAL 1-2 REGIONS CHIROPRAC 45547 EMMIE SALEEM TIC 5 GAR MANIPLTV CHIROPRAC TX TIC CENTE EXTRASPIN AL 1/> [place] [address] EMMIE SALEEM 1/> AREAS 5 GAR EACH 15 CHIROPRAC MIN TIC CENTE NEUROMUSC REEDUCA APPL 01630 EMMIE SALEEM MODALITY 5 GAR 1/> AREAS CHIROPRAC [place] [address] EMMIE SALEEM 1/> AREAS 5 GAR EACH 15 CHIROPRAC MIN TIC CENTE NEUROMUSC REEDUCA CHIROPRAC 81154 EMMIE SALEEM TIC 5 GAR MANIPLTV CHIROPRAC TX TIC CENTE EXTRASPIN AL 1/> REGION CHIROPRAC 61474 EMMIE SALEEM TIC 5 GAR MANIPULAT CHIROPRAC DOMINICK TX TIC CENTE SPINAL 1-[place] [address] EMMIE SALEEM 1/> AREAS 5 GAR EACH 15 CHIROPRAC [place] [address] CYNCUATE SALEEM 1/> AREAS 5 GAR EACH 15 CHIROPRAC MINUTES TIC CENTE MASSAGE CHIROPRAC 79629 EMMIE SALEEM TIC 5 GAR MANIPULAT CHIROPRAC DOMINICK TX TIC CENTE SPINAL 1-2 [place] [address] EMMIE SALEEM 1/> AREAS 5 GAR EACH 15 CHIROPRAC MIN TIC CENTE NEUROMUSC REEDUCA URNLS DIP 70681 ANTONIO BELTRAN 5 [facility] STICK[facility]TAB [facility] LET RGNT NON-AUTO W/O MICRSCP COMPREHEN 30122 ANTONIO ALVAREZ SIVE 5 [facility] METABOLIC INC INC PANEL COLLECTIO 26023 ANTONIO ALVAREZ N VENOUS 5 [facility] BLOOD INC INC VENIPUNCT URE BLOOD 51631 ANTONIO ALVAREZ COUNT 5 [facility] COMPLETE INC INC AUTO&AUTO DIFRNTL WBC URNLS DIP 33787 ANTONIO ALVAREZ 5 [facility] STICK/TAB INC INC LET REAGENT AUTO MICROSCOP Y URNLS DIP 20016 ANTONIO ALVAREZ 5 [facility] STICK/TAB INC [place] [address] ANTONIO ALVAREZ ABDOMEN & 5 [facility] PELVIS INC INC W/O CONTRAST MATERIAL BLOOD 31144 ANTONIO ALVAREZ COUNT 5 [facility] COMPLETE INC INC AUTO&AUTO DIFRNTL WBC COMPREHEN 75342 ANTONIO ALVAREZ SIVE 5 [facility] METABOLIC INC INC PANEL COMPREHEN 23494 ANTONIO AL[facility]AREZ SIVE 5 [facility] METABOLIC INC INC PANEL IMMUNOASS 34579 ANTONIO ALVAREZ AY NFCT 5 [facility] AGT ANTB INC INC QUAL/SEMI ANGIE 1 [place] [address] ANTONIO ALVAREZ INFUSION 5 [facility] THERAPY/P INC INC ROPHYLAXI S /DX 1ST TO 1 HR BLOOD 45380 ANTONIO ALVAREZ COUNT 5 [facility] COMPLETE INC INC AUTO&AUTO DIFRNTL WBC UNCLASSIF J3490 ANTONIO ALVAREZ IED DRUGS 5 [facility] INC INC HGB 67500 ROSIBEL ROMAN QUANTITAT 5 JESSIE VEGAS DOMINICK TRANSCUTA NEOUS SMR PRIM 48416 ROSIBEL ROMAN SRC WET 5 JESSIE VEGAS [facility] NFCT AGT ANESTHESI 91218 [facility] A VAGINAL 5 ANESTH LUCERO OF THE PROCEDURE BLUE W/BIOPSY NOS COLLECTIO 52732 ANTONIO ALVAREZ N VENOUS 5 [facility] BLOOD INC INC VENIPUNCT URE DILATION 39154 ROSIBEL ROMAN & 5 JESSIE VEGAS CURETTAGE DX&/[place] [address] [facility], [facility], SURG 5 [facility] ROSCOPIC EXAM BLOOD 16298 ANTONIO ALVAREZ COUNT 5 [facility] [place] [address] ANTONIO ALVAREZ INFUSION 5 [facility] THERAPY INC INC PROPHYLAX IS/DX EA HOUR UNCLASSIF J3490 ANTONIO ALVAREZ IED DRUGS 5 [facility] INC INC INJECTION J2405 ANTONIO ALVAREZ 5 [facility] ONDANSETR INC INC ON HCL PER 1 MG BLOOD 55877 ANTONIO ALVAREZ COUNT 5 [facility] HEMOGLOBI INC INC N BLOOD 77259 ANTONIO ALVAREZ COUNT 5 [facility] COMPLETE INC INC AUTO&AUTO DIFRNTL WBC URNLS DIP 37609 ANTONIO ALVAREZ 5 [facility] STICK/TAB INC INC LET REAGENT AUTO MICROSCOP Y COLLECTIO 66166 ANTONIO ALVAREZ N VENOUS 5 [facility] BLOOD INC INC VENIPUNCT URE CULTURE 20986 ANTONIO ALVAREZ BACTERIAL 5 [facility] INC INC QUANTTATI VE COLONY COUNT URINE URINE 67974 ANTONIO ALVAREZ 5 [facility] TEST INC INC VISUAL COLOR CMPRSN METHS COLLECTIO 72024 ANTONIO ALVAREZ N VENOUS 5 [facility] [place] [address] ANTONIO ALVAREZ TRANSVAGI 5 [facility] NAL INC INC BLOOD 01329 ANTONIO ALVAREZ COUNT 5 [facility] COMPLETE INC INC AUTO&AUTO DIFRNTL WBC SCREENING G0202 ANTONIO ALVAREZ 5 [facility] MAMMOGRAP INC INC HY MICHELE INCL CAD WHEN PERFORMD COMPUTER- 98282 ANTONIO ALVAREZ AIDED 5 [facility] DETECTION INC INC SCREENING MAMMOGRAP HY Encounters Encounter Start End Date Code Location Performer Type Date OFFICE 14673 [facility] STONE OUTPATIEN 7 7 PHYSICIAN T VISIT S GROUP 25 MINUTES OFFICE 12650 [facility] STONE OUTPATIEN 7 7 PHYSICIAN T VISIT 5 S GROUP MINUTES [facility]OSPITAL ANTONIO - 7 7 [facility] OUTPATIEN INC T OFFICE 02505 [facility] STONE OUTPATIEN 7 7 PHYSICIAN T VISIT S GROUP 15 MINUTES EMERGENCY 93342 ANTONIO DEPT 7 7 [facility] VISIT INC HIGH SEVERITY& THREAT [facility]TONIO - 7 7 [facility] OUTPATIEN INC T [facility] - 7 7 [facility] INC T OFFICE 55216 [facility] OUTPATIEN 7 7 [facility] T VISIT 5 INC MINUTES OFFICE 76155 [facility] [place] OUTPATIEN 7 7 PHYSICIAN T VISIT GROUP 15 MINUTES [facility]OSP[facility] - 7 7 [facility] INC T OFFICE 49967 [facility] [place] OUTPATIEN 7 7 PHYSICIAN T VISIT GROUP 15 MINUTES [facility] - 7 7 [facility] OUTPATIEN INC T EMERGENCY 44720 [facility] 7 7 [facility] DEPARTMEN INC T VISIT HIGH/URGE NT SEVERITY EMERGENCY 10347 [facility]YSIA DEY DEPT 7 7 PHYSICIAN VISIT S, [facility] HIGH SEVERITY& THREAT [facility] ANTONIO - 7 7 [facility] OUTPATIEN INC T OFFICE 52488 [facility] [place] OUTPATIEN 7 7 PHYSICIAN T VISIT S GROUP 15 MINUTES OFFICE 91500 [facility] OUTPATIEN 7 7 PHYSICIAN T VISIT S GROUP 25 MINUTES OFFICE 87735 [facility] [place] OUTPATIEN 7 7 PHYSICIAN T VISIT S GROUP 15 MINUTES [facility] - 7 7 [facility] OUTPATIEN INC T OFFICE 47179 [facility] OUTPATIEN 7 7 [facility] T VISIT 5 INC MINUTES OFFICE 51632 [facility] [place] OUTPATIEN 7 7 PHYSICIAN T VISIT S GROUP 25 MINUTES OFFICE 67448 [facility] [place] OUTPATIEN 7 7 PHYSICIAN T VISIT S GROUP 25 MINUTES OFFICE 69364 [facility] [place] OUTPATIEN 7 7 PHYSICIAN T VISIT S GROUP 25 MINUTES OFFICE 59565 [facility] OUTPATIEN 6 6 PHYSICIAN T VISIT S GROUP 15 MINUTES OFFICE 03189 [facility] [place] OUTPATIEN 6 6 PHYSICIAN T VISIT S GROUP 15 MINUTES OFFICE 23145 [facility] [place] OUTPATIEN 6 6 PHYSICIAN T VISIT S GROUP 25 MINUTES HOSPITAL [facility] - 6 6 [facility] OUTPATIEN INC T PERIODIC 58386 [facility] HARPEL PREVENTIV 6 6 PHYSICIAN SHASTA E MED EST S GROUP PATIENT 40-64YRS OFFICE 47588 [facility] [place] OUTPATIEN 6 6 PHYSICIAN EUG T VISIT S GROUP 15 MINUTES [facility]OSP[facility] - 6 6 [facility] OUTPATIEN INC T OFFICE 24204 [facility] [place] OUTPATIEN 6 6 PHYSICIAN T NEW 30 S GROUP MINUTES [facility]OSPITAL [facility] - 6 6 [facility] OUTPATIEN INC T OFFICE 89584 [facility] [place] OUTPATIEN 6 6 PHYSICIAN EUG T VISIT S GROUP 15 MINUTES OFFICE 12674 [facility] [place] OUTPATIEN 6 6 PHYSICIAN T VISIT GROUP 25 MINUTES OFFICE 42321 CYNTHIANA CANTRELL OUTPATIEN 6 6 AMA T VISIT CHIROPRAC 15 TIC CENTE MINUTES OFFICE 29986 [facility] [place] OUTPATIEN 6 6 PHYSICIAN T VISIT GROUP 15 MINUTES OFFICE 66885 CYNTHIANA CANTRELL OUTPATIEN 6 6 AMA T VISIT CHIROPRAC 15 TIC CENTE MINUTES EMERGENCY 32228 [facility] 6 6 [facility] DEPARTMEN INC T VISIT LOW/MODER SEVERITY [facility] - 6 6 [facility] OUTPATIEN INC T EMERGENCY 09937 [facility] 6 6 PHYSICIAN DEPARTMEN S, PLL[facility] T VISIT MODERATE SEVERITY OFFICE 87787 AN[facility]IO GAGE OUTPATIEN [address] [facility] T VISIT HOSPITAL 25 MINUTES OFFICE 16759 MANDAEN SHANIKA OUTPATIEN 6 6 [facility] T OFFICE 21147 [facility] [place] OUTPATIEN 6 6 PHYSICIAN STONE T VISIT S GROUP DOMINGO CORBIN 25 MINUTES OFFICE 05375 ROSIBEL ROMAN OUTPATIEN 6 6 JESSIE BOTELLO SHASTA T VISIT 15 MINUTES OFFICE 55753 [facility] JEFFRY OUTPATIEN 6 6 PHYSICIAN HUGH T VISIT S GROUP 15 MINUTES OFFICE 96223 [facility] JEFFRY OUTPATIEN 6 6 PHYSICIAN HUGH T VISIT S GROUP 15 MINUTES OFFICE 77959 [facility] EASLEY OUTPATIEN 6 6 [facility] VISIT HOSPITAL 15 MINUTES [facility]OSPITAL [facility] - 5 6 [facility] - 5 5 [facility] OUTPATIEN INC T OFFICE 44736 ROSIBEL ROMAN OUTPATIEN 5 5 JESSIE BOTELLO SHASTA T VISIT 15 MINUTES [facility]OS[facility] - 5 5 [facility] OUTPATIEN INC T OFFICE 62606 ROSIBEL ROMAN OUTPATIEN 5 5 JESSIE BOTELLO SHASTA T VISIT 25 MINUTES OFFICE 91291 EMMIE SALEEM OUTPATIEN 5 5 [facility] T VISIT CHIROPRAC 10 TIC CENTE MINUTES OFFICE 77497 AN[facility] BELTRAN OUTPATIEN 5 5 [facility] 5 5 [facility] OUTPATIEN [facility] AN[facility]IO - 5 5 [facility] OUTPATIEN INC T EMERGENCY 71166 [facility] 5 5 [facility] DEPARTMEN INC T VISIT MODERATE SEVERITY EMERGENCY 27707 [facility] JAMISON 5 5 PHYSICIAN [facility] T VISIT HIGH/URGE NT SEVERITY EMERGENCY 46197 [facility] 5 5 [facility] DEPART[facility] INC T VISIT HIGH/URGE NT SEVERITY [facility]OSP[facility] - 5 5 [facility] OUTPATIEN INC T EMERGENCY 65139 [facility] [place] 5 5 [facility] T VISIT P MODERATE SEVERITY OFFICE [id number] [facility] 5 5 [facility] T VISIT 15 [facility]UT[facility] T OFFICE [id number] [facility] 5 5 [facility] T VISIT 15 MINUTES [facility] - 5 5 [facility] OFFICE [id number] [facility]PAT[facility] 5 5 J[facility]GAS T [facility]ISIT 15 MINUTES [facility] - 5 [facility] T OFFICE [id number] [facility] 5 5 J[facility]GAS T VISIT 15 [facility]UTES [facility] - 5 [facility] T Emergency KAMILLE Jamison MD (ER) 3 05:26 3 05:27 [facility]
--- OUTSIDE RECORDS SUMMARY | 2017-03-15 22:12 | External Medical Summary Rpt | CCD ---
Author Author , OMAIRA Hannah OMAIRA Address Unknown Phone [email or web address] Care Team Providers Care Instructional Systems Specialist Name Role Phone [facility] Unavailable Unavailable MEDICAL GROUP, [facility] BEINEKE HARINDER, BEINEKE Unavailable [...] Unavailable JESSIE LOPEZ MD Unavailable Unavailable SHAST[facility] Unavailable Unavailable INC, [facility] Unavailable Unavailable [facility]OSPITAL, [facility] Unavailable Unavailable [facility]OSPITAL P, [facility] P [facility], Unavailable [facility]available [facility], Unavailable Unavailable [facility] CANTRELL AMA, CANTRELL Unavailable Unavailable AMA DEY, DEY Unavailable Unavailable [facility], Unavailable Unavailable [...] Diagnosis DOS Provider Status [id number] OTHER 01-25-2017 [facility] OBESITY DUE PHYSICIANS TO EXCESS GROUP CALORIES J4520 MILD 01-25-2017 [facility] INTERMITTEN PHYSICIANS T ASTHMA GROUP UNCOMPLICAT ED M2550 PAIN IN 01-25-2017 [facility] UNSPECIFIED PHYSICIANS JOINT GROUP R739 HYPERGLYCEM 01-25-2017 [facility] IA PHYSICIANS UNSPECIFIED GROUP Z6841 BODY MASS 01-25-2017 [facility] INDEX BMI PHYSICIANS 40.0-44.9 GROUP ADULT R0602 SHORTNESS 01-24-2017 [place] [facility] R0989 OTH SPEC SX 01-24-2017 [place] & SIGNS MEDICAL INVLV THE IMAGING ASS CIRC & RESP SYS J40 BRONCHITIS 01-16-2017 [facility] NOT PHYSICIANS SPECIFIED GROUP ACUTE OR CHRONIC R5381 OTHER 01-15-2017 [facility] MALAISE PHYSICIANS GROUP I10 ESSENTIAL 01-14-2017 [facility] PRIMARY [facility]YS[facility]ANS, HYPERTENSIO PLLC N J040 ACUTE 01-14-2017 [facility] P J209 ACUTE 01-14-2017 [facility] BRONCHITIS PHYSICIANS, UNSPECIFIED PLLC R0600 DYSPNEA 01-14-2017 [place] UNSPECIFIED [facility]ICAL IM[facility]ING ASS [id number] UNS ADVERS 01-14-2017 [facility] EFFECT PHYSICIANS, DRUG/MEDICA PLLC MENT INITIAL ENCNTR J189 PNEUMONIA 01-12-2017 [facility]NSPECIFIED [facility] ORGANISM INC H6504 ACUTE 01-09-2017 [facility] SEROUS PHYSICIAN OTITIS GROUP MEDIA RECURRENT RIGHT EAR J0101 ACUTE 01-09-2017 [facility] RECURRENT PHYSICIAN MAXILLARY GROUP SINUSITIS I209 ANGINA 12-07-2016 [facility] PECTORIS [facility] UNSPECIFIED INC R9431 ABNORMAL 12-07-2016 [facility] ELECTROCARD [facility] IOGRAM INC Z8249 FAMILY HX 12-07-2016 [facility] ISCHEMIC [facility] HRT DZ OTH INC DZ CIRC SYSTEM H6693 OTITIS 12-03-2016 [facility] MEDIA PHYSICIAN UNSPECIFIED GROUP BILATERAL J0100 ACUTE 12-03-2016 [facility] MAXILLARY PHYSICIAN SINUSITIS GROUP UNSPECIFIED R002 PALPITATION 12-01-2016 [facility] Jimenez PHYSICIANS, [facility] R079 CHEST PAIN 12-01-2016 [place] [facility] E8770 FLUID 11-29-2016 [facility] OVERLOAD [facility] UNSPECIFIED INC Z0389 ENCOUNTER 11-16-2016 [facility] OT MEDICAL SUSPCT DZ & IMAGING ASS COND RULED OUT P02954V SPRAIN UNS 10-20-2016 [facility] LIGAMENT PHYSICIANS LEFT ANKLE GROUP INITIAL ENCOUNTER J069 ACUTE UPPER 10-16-2016 [facility] RESPIRATORY INC INFECTION UNSPECIFIED V27481 PRIMARY 10-10-2016 [place] OSTEOARTHRI MEDICAL TIS LEFT IMAGING ASS ANKLE AND FOOT O74228 PAIN IN 10-10-2016 [place] RIGHT CHIROPRACTI SHOULDER C CENTE M5381 OTHER SPEC 10-10-2016 [place] DORSOPATHIE CHIROPRACTI S C CENTE OCCIPITO-AT HEATHER-AXIAL RGN M5386 OTHER 10-10-2016 [place] SPECIFIED CHIROPRACTI DORSOPATHIE C CENTE S LUMBAR REGION M5442 LUMBAGO 10-10-2016 [place] WITH CHIROPRACTI SCIATICA C CENTE LEFT SIDE M546 PAIN IN 10-10-2016 [place] THORACIC CHIROPRACTI SPINE C CENTE V90410 PAIN IN 10-10-2016 [place] LEFT FOOT MEDICAL IMAGING ASS M9906 SEGMENTAL & 10-10-2016 [place] SOMATIC CHIROPRACTI DYSFUNCTION C CENTE LOWER EXTREMITY I71055 ACUTE 06-29-2016 [facility] SUPPURATIVE PHYSICIANS OM W/O GROUP RUPT EAR DRUM RT EAR R109 UNSPECIFIED 06-29-2016 [facility] ABDOMINAL PHYSICIANS PAIN GROUP J029 ACUTE 05-04-2016 [facility] PHARYNGITIS PHYSICIANS GROUP UNSPECIFIED Z1231 ENCOUNTER 05-01-2016 [place] SCREENING MEDICAL MAMMO MALIG IMAGING ASS NEOPLASM BREAST N951 MENOPAUSAL 04-25-2016 [facility] AND FEMALE PHYSICIANS CLIMACTERIC GROUP STATES R39792 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[facility] IMPORT MANAGER EXAM PHYSICIANS GENERAL RTN GROUP W/O ABNORMAL FIND Z1212 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[facility] SCREENING PHYSICIANS MALIGNANT GROUP NEOPLASM RECTUM J0390 ACUTE 04-13-2016 [facility] TONSILLITIS PHYSICIANS GROUP UNSPECIFIED M542 CERVICALGIA 03-30-2016 [place] CHIROPRACTI C CENTE L745QLC SPRAIN 03-30-2016 [place] LIGAMENTS CHIROPRACTI LUMBAR C CENTE SPINE INITIAL ENCOUNTER K58215L STRAIN 03-30-2016 [place] MUSCLE CHIROPRACTI FASCIA & C CENTE TENDON LOW BACK INITIAL L05837 PAIN IN 03-28-2016 [place] LEFT HAND [facility]ICAL [facility] M7989 OTHER 03-28-2016 [place] SPECIFIED MEDICAL SOFT TISSUE IMAGING ASS DISORDERS 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 M654 RADIAL 03-15-2016 [facility] STYLOID PHYSICIANS TENOSYNOVIT GROUP IS DE QUERVAIN E16743 GANGLION 03-15-2016 [facility] RIGHT WRIST PHYSICIANS GROUP S37825 GANGLION 03-15-2016 [facility] LEFT WRIST PHYSICIANS GROUP N44603 PAIN IN 03-07-2016 [place] LEFT WRIST MEDICAL IM[facility]ING ASS P89990 GANGLION 03-07-2016 [facility] RIGHT HAND PHYSICIANS GROUP D35499 GANGLION 03-07-2016 [facility] LEFT HAND PHYSICIANS GROUP R65442 PAIN IN 03-07-2016 [place] [facility] M9903 SEGMENTAL & 01-21-2016 [place] SOMATIC CHIROPRACTI DYSFUNCTION C CENTE OF LUMBAR REGION M545 LOW BACK 01-11-2016 [place] PAIN CHIROPRACTI C CENTE K1120 SIALOADENIT 01-04-2016 [facility] IS PHYSICIANS, UNSPECIFIED PLLC K1121 ACUTE 01-04-2016 [facility]IALOADENI [facility] IS INC J329 CHRONIC 12-27-2015 [facility] J0140 ACUTE 11-22-2015 [facility] MEDICAL UNSPECIFIED GROUP H6980 OTHER SPEC 11-09-2015 [facility] DISORDERS PHYSICIANS EUSTACHIAN GROUP TUBE UNS EAR T48998 UNSPECIFIED 11-09-2015 [facility] ASTHMA PHYSICIANS UNCOMPLICAT GROUP ED R5383 OTHER 11-09-2015 [facility] FATIGUE PHYSICIANS GROUP Z840 FAMILY 11-09-2015 [facility] HISTORY PHYSICIANS DISEASES GROUP SKIN & SUBQ TISSUE Z0100 ENCOUNTER 11-04-2015 [facility] EXAM EYES & GRE VISION W/O ABNORMAL FIND H6690 OTITIS 09-22-2015 [facility] MEDIA PHYSICIANS UNSPECIFIED GROUP UNSPECIFIED EAR C26462 OTHER ACUTE 09-12-2015 [facility] DOMINICK OM RECURRENT BILAT J0190 ACUTE 09-12-2015 [facility] SINUSITIS [facility] D259 LEIOMYOMA 06-03-2015 [facility] UNSPECIFIED K660 PERITONEAL 06-03-2015 [facility] ADHESIONS [facility] POSTPROC INC POSTINFECTI ON N736 FEMALE 06-03-2015 [facility] PELVIC PHYSICIANS PERITONEAL GROUP ADHESIONS POSTINFECTI VE N800 ENDOMETRIOS 06-03-2015 [facility] IS OF [facility] UTERUS N831 CORPUS 06-03-2015 [facility] N8320 UNSPECIFIED 06-03-2015 [facility] OVARIAN PHYSICIANS CYSTS GROUP N856 INTRAUTERIN 06-03-2015 [facility] E [facility]NECH[facility] N938 OTHER SPEC 06-03-2015 [facility] ABNORMAL PHYSICIANS UTERINE & GROUP VAGINAL BLEEDING R102 PELVIC AND 06-03-2015 [facility] PERINEAL [facility] PAIN INC B9689 OTH SPEC 05-24-2015 [facility] Ceballos BACTERIAL JESSIE BOTELLO AGNT CAUSE DZ CLASSIFIED ELSW N760 ACUTE 05-24-2015 [facility] ROMAN MD S11394 ENCOUNTER 05-24-2015 [facility] FOR OTHER [facility] PREPROCEDUR INC AL EXAMINATION N852 HYPERTROPHY 05-10-2015 [place] [facility] N9489 OTH COND 05-04-2015 [facility] C[facility]all[facility] ASSOC W/FE JESSIE BOTELLO GEN ORGN & MENSTRUAL CYCL 4019 UNSPECIFIED 02-03-2015 [facility] N 95845 ASTHMA, 02-03-2015 [facility] 5990 URINARY 02-03-2015 [facility] SITE NOT SPECIFIED 21379 ABDOMINAL 01-05-2015 [facility] PAIN OTHER [facility] SPECIFIED INC SITE 35120 OTHER 11-03-2014 [place] SPECIFIED MEDICAL DISORDER OF IMAGING ASS KIDNEY AND URETER 57258 ABDOMINAL 11-03-2014 [facility] PAIN RIGHT [facility] UPPER INC QUADRANT V1301 PERSONAL 11-03-2014 [facility] HISTORY OF [facility] URINARY INC CALCULI 462 ACUTE 10-07-2014 [facility] PHARYNGITIS [facility] P 22223 ACUTE 10-07-2014 [facility] P MENTION OF OBSTRUCTIO 99108 UNSPECIFIED 09-14-2014 [facility] ROMAN MD AND VULVOVAGINI TIS 6262 EXCESSIVE 09-14-2014 [facility] R OR MELANY ROMAN MD MENSTRUATIO N 0794 [...] te s n re d ES 00 09 09 8. 28 00 RI Ac TR 37 -0 -2 00 00 TE ti AD 84 1- 9- 0 01 ve IO 64 20 20 15 AI L 02 17 17 92 D 0. 6 37 PH 1 AR MG MA CY PA TC #3 H 93 8 LI 68 09 09 30 30 00 RI Ac SI 18 -0 -2 .0 00 TE ti NO 00 2- 9- 00 01 ve NJ 52 20 20 19 AI IL 00 17 17 37 D -H [address] AR Z MA 20 CY -2 5 #3 MG 93 8 TA B ME 42 08 09 60 30 00 RI Ac TF 80 -2 -2 .0 00 TE ti OR 60 4- 2- 00 01 ve NC 31 20 20 19 AI N 30 17 17 68 D HC 5 77 PH L AR 50 MA 0 CY MG #3 TA 93 BL 8 ET GASCA 00 08 09 60 30 00 RI [...] YL 15 1- 8- 00 01 ve NJ 02 20 20 19 AI ED 20 [...] #3 IN 93 RAMIRES 8 LE R AM 66 08 09 14 7 00 RI Ac OX 68 -0 -0 .0 00 TE ti -C 51 8- 1- 00 01 ve LA 00 20 20 19 AI V 10 17 17 48 D 87 0 06 PH 5- AR 12 MA 5 CY MG #3 TA 93 BL 8 ET ES 00 08 09 8. 28 00 [...] NO 00 7- 1- 00 01 ve NJ 52 20 20 19 AI IL 00 17 17 37 D -H [address] AR Z MA 20 CY -2 5 #3 MG 93 8 TA B FU 00 06 07 30 30 00 RI Ac RO 37 -1 -1 .0 00 TE ti SE 80 5- 4- 00 01 ve NC 21 20 20 18 AI DE 61 [...] NO 00 9- 4- 00 01 ve NJ 52 20 20 17 AI IL 00 [...] NO 00 3- 6- 00 01 ve NJ 52 20 20 17 AI IL 00 [...] NO 00 6- 9- 00 01 ve NJ 52 20 20 17 AI IL 00 [...] NO 00 2- 7- 00 01 ve NJ 52 20 20 16 AI IL 00 [...] MG #3 TA 93 BL 8 ET NJ 59 01 02 10 5 00 RI [...] NO 00 5- 0- 00 01 ve NJ 52 20 20 16 AI IL 00 [...] MG #3 93 TA 8 BL ET NJ 00 12 01 20 10 00 RI Ac OM 60 -2 -2 0. 00 TE ti ET 31 2- 0- 00 01 ve RAMIRES 58 20 20 0 16 AI ZI 65 16 17 36 D NE 4 14 PH -D AR M MA SY CY RU P #3 93 8 NJ 00 12 01 10 5 00 RI [...] NO 00 5- 3- 00 01 ve NJ 52 20 20 16 AI IL 00 16 17 26 D -H [address] AR Z MA 20 CY -2 5 #3 MG 93 8 TA B Procedures Procedure DOS Code Location Performer Comment CT THORAX 58220 [place] MAZARIEG[facility] W/O 7 MEDICAL CONTRAST IMAGING MATERIAL ASS SMR PRIM 74585 [facility] SRC 7 [facility] GRAM/GIEM INC INC SA STAIN BCT FUNGI/RONI L INJECTION J0696 [facility] STONE 7 PHYSICIAN CEFTRIAXO S GROUP NE SODIUM PER 250 MG THERAPEUT 56496 [facility] STONE IC 7 PHYSICIAN PROPHYLAC S GROUP TIC/DX INJECTION SUBQ/IM CUL BACT 39179 [facility] XCPT 7 [facility] URINE INC INC BLOOD/STO OL AEROBIC ISOL THERAPEUT 80247 [facility] STONE IC 7 PHYSICIAN PROPHYLAC S GROUP TIC/DX INJECTION SUBQ/IM INJECTION J0696 [facility] STONE 7 PHYSICIAN CEFTRIAXO S GROUP NE SODIUM PER 250 MG COMPREHEN 93177 [facility] SIVE 7 [facility] METABOLIC INC INC PANEL ECG 24144 [facility] TREADWELL ROUTINE 7 [facility] W/LEAST P 12 LDS I&R ONLY UNCLASSIF J3490 [facility] IED DRUGS 7 [facility] INC INC GLUC BLD 42918 [facility] AL[facility] GLUC MNTR 7 [facility] DEV INC INC CLEARED FDA SPEC HOME USE NATRIURET 36312 [facility] IC 7 [facility] [place] [address] [facility] AL[facility] TROPONIN 7 [facility] QUANTITAT INC INC DOMINICK THYROID 53028 [facility] AL[facility] HORM 7 [facility] UPTK/THYR INC INC OID HORMONE BINDING RATIO BLOOD 78765 [facility] ALVAREZ COUNT 7 [facility] COMPLETE INC INC AUTO&AUTO DIFRNTL WBC CREATINE 54950 [facility] KINASE 7 [facility] TOTAL INC INC FIBRIN 69007 [facility] ALVAREZ DGRADJ 7 [facility]OS[facility] PRODUCTS INC INC D-DIMER QUAL/SEMI ANGIE ECG 89743 [facility] ALVAREZ ROUTINE 7 [facility] ECG INC INC W/LEAST 12 LDS TRCG ONLY W/O I&[place] [address] [facility] AL[facility] THYROXINE 7 [facility] TOTAL INC INC RADIOLOGI 86982 [facility] AL[facility]AREZ C 7 [facility] EXAMINATI INC INC ON CHEST SINGLE VIEW FRONTAL CREATINE 35264 [facility] AL[facility]AREZ KINASE MB 7 [facility] [place] [address] [facility] ALVAREZ THYROID 7 [facility] STIMULATI INC INC NG HORMONE TSH RADIOLOGI 85685 [facility] ALVAREZ C EXAM 7 [facility] CHEST 2 INC INC VIEWS FRONTAL&L ATERAL ECG 36372 [facility] ALVAREZ ROUTINE 7 [facility] ECG INC INC W/LEAST 12 LDS TRCG ONLY W/O I&R THERAPEUT 62834 [facility] FRYMAN IC 7 PHYSICIAN PROPHYLAC GROUP TIC/DX INJECTION SUBQ/IM INJECTION J0696 [facility] FRYMAN 7 PHYSICIAN CEFTRIAXO GROUP NE SODIUM PER 250 MG BLOOD 76117 [facility] ALVAREZ COUNT 7 [facility] COMPLETE INC INC AUTO&AUTO DIFRNTL WBC BASIC 20828 [facility] AL[facility] METABOLIC 7 [facility] PANEL INC INC [facility] G0378 [facility] OBSERVATI 7 [facility] ON INC INC SERVICE PER HOUR CREATINE 23618 [facility] ALVAREZ KINASE MB 7 [facility] [place] [address] [facility] AL[facility]Z THYROID 7 [facility]OS[facility] STIMULATI INC INC NG HORMONE TSH RADIOLOGI 71437 [facility] ALVAREZ C 7 [facility] EXAMINATI INC INC [place] [address] [facility] ALVAREZ THYROXINE 7 [facility] TOTAL INC INC ECG 97346 [facility] ALVAREZ ROUTINE 7 [facility] ECG INC INC W/LEAST 12 LDS TRCG ONLY W/O I&R CREATINE 72018 [facility] ALVAREZ KINASE 7 [facility] TOTAL INC INC HOSPITAL G0378 [facility] OBSERVATI 7 [facility] ON INC INC SERVICE PER HOUR UNCLASSIF J3490 [facility] AL[facility]Z IED DRUGS 7 [facility] INC INC BLOOD 56203 [facility] ALVAREZ COUNT 7 [facility] COMPLETE INC INC AUTO&[place] [address] [facility] ALVAREZ TROPONIN 7 [facility] QUANTITAT INC INC DOMINICK THYROID 68065 [facility] ALVAREZ HORM 7 [facility] UPTK/THYR INC INC OID HORMONE BINDING RATIO COMPREHEN 76459 [facility] ALV[facility]Z SIVE 7 [facility] METABOLIC INC INC PANEL OBSERVATI 34583 [facility] JEFFRY ON/INPATI 7 PHYSICIAN ENT S GROUP HOSPITAL CARE 50 MINUTES ECG 32065 [facility] DEY ROUTINE 7 PHYSICIAN ECG S, PLLC W/LEAST 12 LDS I&R ONLY ECHO 53405 [facility] ALVAREZ TTHRC R-T 7 [facility] 2D INC INC W/WOM-MOD E COMPL SPEC&COLR D RADIOLOGI 14716 [facility] EXAM 7 MEDICAL CHEST 2 IMAGING VIEWS ASS FRONTAL&L ATERAL ECG 68827 [facility] TREADWELL ROUTINE 7 [facility] W/LEAST P 12 LDS I&R ONLY COLLECTIO 21113 [facility] STONE N VENOUS 7 PHYSICIAN BLOOD S GROUP VENIPUNCT URE RHYTHM 19067 [facility] STONE ECG 1-3 7 PHYSICIAN LEADS S GROUP W/INTERPR ETATION & REPORT IAADIADOO 15607 [facility]VAREZ 7 [facility] INFLUENZA INC INC IAADIADOO 50625 [facility] ALVAREZ 7 [facility] STREPTOCO INC INC CCUS GROUP A MANUAL 99207 [place] [facility] THERAPY 7 TQS 1/> CHIROPRAC REGIONS TIC CENTE EACH 15 MINUTES RADEX 36290 [place] [facility] FOOT 7 MEDICAL COMPLETE IMAGING MINIMUM 3 [place] [address] [place] T[facility]ER 1/> AREAS 7 EACH 15 CHIROPRAC MIN TIC CENTE NEUROMUSC REEDUCA CHIROPRAC 25681 [place] T[facility] TIC 7 MANIPULAT CHIROPRAC DOMINICK TX TIC CENTE SPINAL 1-2 REGIONS CHIROPRAC 32479 [place] T[facility] TIC 7 MANIPLTV CHIROPRAC TX TIC CENTE EXTRASPIN AL 1/> REGION INJECTION J1100 [facility] TYSON 7 PHYSICIAN DEXAMETHO S GROUP SONE SODIUM PHOSPHATE 1 MG THERAPEUT 79379 [facility] TYSON IC 7 PHYSICIAN PROPHYLAC S GROUP TIC/DX INJECTION SUBQ/IM MANUAL 21968 [place] [facility] THERAPY 7 TQS 1/> CHIROPRAC REGIONS TIC CENTE EACH 15 MINUTES CHIROPRAC 49284 [place] T[facility] TIC 7 MANIPULAT CHIROPRAC DOMINICK TX TIC CENTE SPINAL 1-2 REGIONS URNLS DIP 74848 [facility] 7 PHYSICIAN PHYSICIAN STICK/TAB S GROUP S GROUP LET RGNT NON-AUTO W/O MICRSCP INJECTION J0696 [facility] STONE 7 PHYSICIAN CEFTRIAXO S GROUP NE SODIUM PER 250 MG THERAPEUT 34948 [facility] STONE IC 7 PHYSICIAN PROPHYLAC S GROUP TIC/DX INJECTION SUBQ/IM THERAPEUT 89878 [facility] STONE IC 6 PHYSICIAN PROPHYLAC S GROUP TIC/DX INJECTION SUBQ/IM INJECTION J0696 [facility] STONE 6 PHYSICIAN CEFTRIAXO S GROUP NE SODIUM PER 250 MG INJECTION J0696 [facility] FRYMAN 6 PHYSICIAN CEFTRIAXO S GROUP NE SODIUM PER 250 MG THERAPEUT 86776 [facility] FRYMAN IC 6 PHYSICIAN PROPHYLAC S GROUP TIC/DX INJECTION SUBQ/IM SCREENING G0202 [facility] 6 [facility] MAMMOGRAP INC INC HY MICHELE INCL CAD WHEN PERFORMD 94607 [facility] AL[facility] AIDED 6 [facility] DETECTION INC INC SCREENING MAMMOGRAP HY URINLS 79311 [facility] HARPEL DIP 6 PHYSICIAN SHASTA STICK/TAB S GROUP LET REAGNT NON-AUTO MICRSCPY IADNA 66776 BIO BIO TRICHOMON 6 REFERNCE REFERNCE LABORATOR LABORATOR VAGINALIS IES IES AMPLIFIED PROBE TECH CULTURE 04409 [facility] HARPEL CHLAMYDIA 6 PHYSICIAN SHASTA ANY S GROUP SOURCE CYTP C/V 06423 BIO BIO AUTO THIN 6 REFERNCE REFERNCE LYR LABORATOR LABORATOR PREPJ SCR IES IES MNL RESCR PHYS IADNA 40646 BIO BIO CHLAMYDIA 6 REFERNCE REFERNCE LABORATOR LABORATOR TRACHOMAT IES IES IS AMPLIFIED PROBE TQ IADNA 43541 [facility] NEISSERIA 6 PHYSICIAN PHYSICIAN S GROUP S GROUP GONORRHOE AE DIRECT PROBE TQ IADNA 03387 BIO BIO NEISSERIA 6 REFERNCE REFERNCE LABORATOR LABORATOR GONORRHOE IES IES AE AMPLIFIED PROBE TQ IADNA NOS 86613 BIO BIO 6 REFERNCE REFERNCE AMPLIFIED LABORATOR LABORATOR PROBE TQ IES IES EACH ORGANISM THERAPEUT 85369 [facility] FR[facility]MAN IC 6 PHYSICIAN EUG PROPHYLAC S GROUP TIC/DX INJECTION SUBQ/IM INJECTION J0696 [facility] FRYMAN 6 PHYSICIAN EUG CEFTRIAXO S GROUP NE SODIUM PER 250 MG CHIROPRAC 84780 [facility] CANT[facility] TIC 6 AMA MANIPULAT CHIROPRAC DOMINICK TX TIC CENTE SPINAL 3-4 REGIONS MANUAL 21851 [place] CATNRELL THERAPY 6 AMA TQS 1/> CHIROPRAC REGIONS TIC CENTE EACH 15 MINUTES CHIROPRAC 88549 [place] CANTRELL TIC 6 AMA MANIPLTV CHIROPRAC TX TIC CENTE EXTRASPIN AL 1/> REGION MRI UPPER 15672 [place] JACOB 6 MEDICAL EXTREMITY IMAGING OTH THAN ASS JT W/O CONTR MATRL APPL 93970 [place] CANTRELL MODALITY 6 AMA 1/> AREAS CHIROPRAC TIC CENTE ULTRASOUN D EA 15 MIN MANUAL 25610 [place] CANTRELL THERAPY 6 AMA TQS 1/> CHIROPRAC REGIONS TIC CENTE EACH 15 MINUTES APPL 87025 [place] CANT[facility] MODALITY 6 AMA 1/> AREAS CHIROPRAC ELEC TIC CENTE STIMJ UNATTENDE D CH[facility]OPRAC 80203 [place] CANTRELL TIC 6 AMA MANIPULAT CHIROPRAC DOMINICK TX TIC CENTE SPINAL 3-4 REGIONS CHIROPRAC 61293 [place] CANTRELL TIC 6 AMA MANIPULAT CHIROPRAC DOMINICK TX TIC CENTE SPINAL 3-4 REGIONS APPL 98069 [place] MODALITY 6 AMA 1/> AREAS [facility]IROPR[facility] ELEC TIC CENTE STIMJ UNATTENDE D MANUAL 38463 [place] THERAPY 6 AMA TQS 1/> CHIROPRAC REGIONS TIC CENTE EACH 15 MINUTES APPL 69747 [place] MODALITY 6 AMA 1/> AREAS CHIROPRAC TIC CENTE ULTRASOUN D EA 15 MIN RADEX 60588 [place] ALL WRIST 2 6 MEDICAL VIEWS IMAGING ASS THERAPEUT 57310 [facility] IC 6 PHYSICIAN PHYSICIAN PROPHYLAC S GROUP S GROUP TIC/DX INJECTION SUBQ/IM RADEX 98073 [place] [facility] ALL HAND 2 6 MEDICAL VIEWS IMAGING ASS APPL 88949 [place] MODALITY 6 AMA 1/> AREAS CHIROPRAC ELEC TIC CENTE STIMJ UNATTENDE D APPL 48165 [place] MODALITY 6 AMA 1/> AREAS CHIROPRAC TIC CENTE ULTRASOUN D EA 15 MIN MANUAL 98892 [place] THERAPY 6 AMA TQS 1/> CHIROPRAC REGIONS TIC CENTE EACH 15 MINUTES CHIROPRAC 35671 [place] TIC 6 AMA MANIPULAT CHIROPRAC DOMINICK TX TIC CENTE SPINAL 3-4 REGIONS CHIROPRAC 82635 [place] TIC 6 AMA MANIPULAT CHIROPRAC DOMINICK TX TIC CENTE SPINAL 3-4 REGIONS MANUAL 65534 [place] THERAPY 6 AMA TQS 1/> CHIROPRAC REGIONS TIC CENTE EACH 15 MINUTES APPL 12696 [place] MODALITY 6 AMA 1/> AREAS CHIROPRAC TIC CENTE ULTRASOUN D EA 15 MIN APPL 31738 [place] MODALITY 6 AMA 1/> AREAS CHIROPRAC ELEC TIC CENTE STIMJ UNATTENDE D APPL 87928 [place] MODALITY 6 AMA 1/> AREAS CHIROPRAC ELEC TIC CENTE STIMJ UNATTENDE D APPL 85887 [place] MODALITY 6 AMA 1/> AREAS CHIROPRAC TIC CENTE ULTRASOUN D EA 15 MIN MANUAL 59458 [place] THERAPY 6 AMA TQS 1/> CHIROPRAC REGIONS TIC CENTE EACH 15 MINUTES CHIROPRAC 52253 [place] TIC 6 AMA MANIPULAT CHIROPRAC DOMINICK TX TIC CENTE SPINAL 3-4 REGIONS CHIROPRAC 20601 [place] TIC 6 AMA MANIPULAT CHIROPRAC DOMINICK TX TIC CENTE SPINAL 3-4 REGIONS MANUAL 29884 [place] THERAPY 6 AMA TQS 1/> CHIROPRAC REGIONS TIC CENTE EACH 15 MINUTES APPL 52694 [place] MODALITY 6 AMA 1/> AREAS CHIROPRAC ELEC TIC CENTE STIMJ UNATTENDE D APPL 56554 [place] MODALITY 6 AMA 1/> AREAS CHIROPRAC TIC CENTE ULTRASOUN D EA 15 MIN APPL 73323 [place] MODALITY 6 AMA 1/> AREAS CHIROPRAC TIC CENTE ULTRASOUN D EA 15 MIN THERAPEUT 08901 [place] IC PX 1/> 6 AMA AREAS CHIROPRAC EACH 15 TIC CENTE MIN EXERCISES APPL 09901 [place] MODALITY 6 AMA 1/> AREAS CHIROPRAC ELEC TIC CENTE STIMJ UNATTENDE D MANUAL 11459 [place] THERAPY 6 AMA TQS 1/> CHIROPRAC REGIONS TIC CENTE EACH 15 MINUTES CHIROPRAC 79320 [place] TIC 6 AMA MANIPULAT CHIROPRAC DOMINICK TX TIC CENTE SPINAL 3-4 REGIONS CHIROPRAC 87279 [place] TIC 6 AMA MANIPLTV CHIROPRAC TX TIC CENTE EXTRASPIN AL 1/> REGION CHIROPRAC 09094 [place] TIC 6 AMA MANIPLTV CHIROPRAC TX TIC CENTE EXTRASPIN AL 1/> REGION CHIROPRAC 44225 [place] TIC 6 AMA MANIPULAT CHIROPRAC DOMINICK TX TIC CENTE SPINAL 3-4 REGIONS MANUAL 14190 [place] THERAPY 6 AMA TQS 1/> CHIROPRAC REGIONS TIC CENTE EACH 15 MINUTES APPL 44182 [place] MODALITY 6 AMA 1/> AREAS CHIROPRAC TIC CENTE ULTRASOUN D EA 15 MIN APPL 69664 [place] MODALITY 6 AMA 1/> AREAS CHIROPRAC ELEC TIC CENTE STIMJ UNATTENDE D APPL 82587 [place] MODALITY 6 AMA 1/> AREAS CHIROPRAC TRACTION TIC CENTE MECHANICA L APPL 80012 [place] MODALITY 6 AMA 1/> AREAS CHIROPRAC TRACTION TIC CENTE MECHANICA L APPL 83524 [place] MODALITY 6 AMA 1/> AREAS CHIROPRAC TIC CENTE ULTRASOUN D EA 15 MIN MANUAL 64323 [place] THERAPY 6 AMA TQS 1/> CHIROPRAC REGIONS TIC CENTE EACH 15 MINUTES APPL 44571 [place] MODALITY 6 AMA 1/> AREAS CHIROPRAC ELEC TIC CENTE STIMJ UNATTENDE D CHIROPRAC 14011 [place] CANTRELL TIC 6 AMA MANIPULAT CHIROPRAC DOMINICK TX TIC CENTE SPINAL 3-4 REGIONS CHIROPRAC 66875 [place] C[place] TIC 6 AMA MANIPLTV CHIROPRAC TX TIC CENTE EXTRASPIN AL 1/> REGION CHIROPRAC 36537 [place] TIC 6 AMA MANIPLTV CHIROPRAC TX TIC CENTE EXTRASPIN AL 1/> REGION CHIROPRAC 83912 [place] TIC 6 AMA MANIPULAT CHIROPRAC DOM[place]ICK TX TIC CENTE SPINAL 3-4 REGIONS APPL 22769 [place] C[place] MODALITY 6 AMA 1/> AREAS CHIROPRAC ELEC TIC CENTE STIMJ UNATTENDE D MANUAL 02662 [place] C[place] THERAPY 6 AMA TQS 1/> CHIROPRAC REGIONS TIC CENTE EACH 15 MINUTES APPL 07851 [place] MODALITY 6 AMA 1/> AREAS CHIROPRAC TIC CENTE ULTRASOUN D EA 15 MIN APPL 10834 [place] MODALITY 6 AMA 1/> AREAS CHIROPRAC TRACTION TIC CENTE MECHANICA L APPL 18096 [place] MODALITY 6 AMA 1/> AREAS CHIROPRAC TRACTION TIC CENTE MECHANICA L APPL 24325 [place] MODALITY 6 AMA 1/> AREAS CHIROPRAC TIC CENTE ULTRASOUN D EA 15 MIN MANUAL 01295 [place] THERAPY 6 AMA TQS 1/> CHIROPRAC REGIONS TIC CENTE EACH 15 MINUTES APPL 41517 [place] CANT[place] MODALITY 6 AMA 1/> AREAS CHIROPRAC ELEC TIC CENTE STIMJ UNATTENDE D CHIROPRAC 17338 [place] CANT[place] TIC 6 AMA MANIPULAT CHIROPRAC DOMINICK TX TIC CENTE SPINAL 3-4 REGIONS CHIROPRAC 53813 [place] CANT[place] TIC 6 AMA MANIPLTV CHIROPRAC TX TIC CENTE EXTRASPIN AL 1/> REGION CHIROPRAC 66366 [place] TIC 6 AMA MANIPLTV CHIROPRAC TX TIC CENTE EXTRASPIN AL 1/> REGION CHIROPRAC 98619 [place] TIC 6 AMA MANIPULAT CHIROPRAC DOMINICK TX TIC CENTE SPINAL 3-4 REGIONS APPL 37453 [place] CANT[place] MODALITY 6 AMA 1/> AREAS CHIROPRAC ELEC TIC CENTE STIMJ UNATTENDE D MANUAL 32982 [place] C[place] THERAPY 6 AMA TQS 1/> CHIROPRAC REGIONS TIC CENTE EACH 15 MINUTES APPL 52405 [place] MODALITY 6 AMA 1/> AREAS CHIROPRAC TIC CENTE ULTRASOUN D EA 15 MIN APPL 02957 [place] MODALITY 6 AMA 1/> AREAS CHIROPRAC TRACTION TIC CENTE MECHANICA L RADEX 88753 [place] SPINE 6 AMA LUMBOSACR CHIROPRAC AL 2/3 TIC CENTE VIEWS APPL 52570 [place]ANT[place] MODALITY 6 AMA 1/> AREAS CHIROPRAC TRACTION TIC CENTE MECHANICA L APPL 82042 [place] MODALITY 6 AMA 1/> AREAS CHIROPRAC TIC CENTE ULTRASOUN D EA 15 MIN MANUAL 41727 [place] C[place] THERAPY 6 AMA TQS 1/> CHIROPRAC REGIONS TIC CENTE EACH 15 MINUTES APPL 92954 [place]ANT[place] MODALITY 6 AMA 1/> AREAS CHIROPRAC ELEC TIC CENTE STIMJ UNATTENDE D CHIROPRAC 04718 [place] CANT[place] TIC 6 AMA MANIPULAT CHIROPRAC DOMINICK TX TIC CENTE SPINAL 3-4 REGIONS CHIROPRAC 92191 [place] CANT[place] TIC 6 AMA MANIPLTV CHIROPRAC TX TIC CENTE EXTRASPIN AL 1/> REGION CHIROPRAC 57348 [place] CANT[place] TIC 6 AMA MANIPLTV CHIROPRAC TX TIC CENTE EXTRASPIN AL 1/> REGION MANUAL 76276 [place] CANT[place] THERAPY 6 AMA TQS 1/> CHIROPRAC REGIONS TIC CENTE EACH 15 MINUTES CHIROPRAC 68968 [place] TIC 6 AMA MANIPULAT CHIROPRAC DOMINICK TX TIC CENTE SPINAL 3-4 REGIONS APPL 46258 [place]ANT[place] MODALITY 6 AMA 1/> AREAS CHIROPRAC ELEC TIC CENTE STIMJ UNATTENDE D APPL 86352 [place] CANT[place] MODALITY 6 AMA 1/> AREAS CHIROPRAC TIC CENTE ULTRASOUN D EA 15 MIN APPL 72344 [place] CANT[place] MODALITY 6 AMA 1/> AREAS CHIROPRAC TRACTION TIC CENTE MECHANICA L APPL 43027 [place] CANT[place] MODALITY 6 AMA 1/> AREAS CHIROPRAC TRACTION TIC CENTE MECHANICA L APPL 70878 [place] CANT[place] MODALITY 6 AMA 1/> AREAS CHIROPRAC ELEC TIC CENTE STIMJ UNATTENDE D CHIROPRAC 74623 [place] CANT[place] TIC 6 AMA MANIPULAT CHIROPRAC DOMINICK TX TIC CENTE SPINAL 3-4 REGIONS MANUAL 88414 [place] CANT[place] THERAPY 6 AMA TQS 1/> CHIROPRAC REGIONS TIC CENTE EACH 15 MINUTES CHIROPRAC 34004 [place] CANT[place] TIC 6 AMA MANIPLTV CHIROPRAC TX TIC CENTE EXTRASPIN AL 1/> REGION CHIROPRAC 96464 [place] CANT[place] TIC 6 AMA MANIPLTV CHIROPRAC TX TIC CENTE EXTRASPIN AL 1/> REGION CHIROPRAC 56362 [place] CANT[place] TIC 6 AMA MANIPULAT CHIROPRAC DOMINICK TX TIC CENTE SPINAL 3-4 REGIONS MANUAL 82812 [place] CANT[place] THERAPY 6 AMA TQS 1/> CHIROPRAC REGIONS TIC CENTE EACH 15 MINUTES APPL 33439 [place] CANT[place] MODALITY 6 AMA 1/> AREAS CHIROPRAC TRACTION TIC CENTE MECHANICA L APPL 46424 [place] MODALITY 6 1/> AREAS CHIROPRAC CHIROPRAC TRACTION TIC CENTE TIC CENTE MECHANICA L THERAPEUT 72158 [place] HUFFELL IC PX 1/> 6 AMA AREAS CHIROPRAC EACH 15 TIC CENTE MIN EXERCISES APPL 87789 [place] CANT[place] MODALITY 6 AMA 1/> AREAS CHIROPRAC TIC CENTE ULTRASOUN D EA 15 MIN MANUAL 51459 [place] CANT[place] THERAPY 6 AMA TQS 1/> CHIROPRAC REGIONS TIC CENTE EACH 15 MINUTES APPL 98529 [place] CANT[place] MODALITY 6 AMA 1/> AREAS CHIROPRAC ELEC TIC CENTE STIMJ UNATTENDE D CHIROPRAC 68439 [place] CANT[place] TIC 6 AMA MANIPULAT CHIROPRAC DOMINICK TX TIC CENTE SPINAL 3-4 REGIONS CHIROPRAC 34493 [place] CANT[place] TIC 6 AMA MANIPLTV CHIROPRAC TX TIC CENTE EXTRASPIN AL 1/> REGION CHIROPRAC 89319 [place] CANT[place] TIC 6 AMA MANIPLTV CHIROPRAC TX TIC CENTE EXTRASPIN AL 1/> REGION CHIROPRAC 35917 [place] CANT[place] TIC 6 AMA MANIPULAT CHIROPRAC DOMINICK TX TIC CENTE SPINAL 3-4 REGIONS APPL 60206 [place] MODALITY 6 1/> AREAS CHIROPRAC CHIROPRAC ELEC TIC CENTE TIC CENTE STIMJ UNATTENDE D MANUAL 86263 [place] CANT[place] THERAPY 6 AMA TQS 1/> CHIROPRAC REGIONS TIC CENTE EACH 15 MINUTES APPL 51018 [place] CANT[place] MODALITY 6 AMA 1/> AREAS CHIROPRAC TIC CENTE ULTRASOUN D EA 15 MIN APPL 35497 [place] CANT[place] MODALITY 6 AMA 1/> AREAS CHIROPRAC TRACTION TIC CENTE MECHANICA L APPL 93418 [place] MODALITY 6 1/> AREAS CHIROPRAC CHIROPRAC TRACTION TIC CENTE TIC CENTE MECHANICA L APPL 58674 [place] CANT[place] MODALITY 6 AMA 1/> AREAS CHIROPRAC TIC CENTE ULTRASOUN D EA 15 MIN MANUAL 62302 [place] CANT[place] THERAPY 6 AMA TQS 1/> CHIROPRAC REGIONS TIC CENTE EACH 15 MINUTES APPL 66276 [place] CANT[place] MODALITY 6 AMA 1/> AREAS CHIROPRAC ELEC TIC CENTE STIMJ UNATTENDE D CHIROPRAC 57756 [place] CANT[place] TIC 6 AMA MANIPULAT CHIROPRAC DOMINICK TX TIC CENTE SPINAL 3-4 REGIONS CHIROPRAC 67099 [place] CANT[place] TIC 6 AMA MANIPLTV CHIROPRAC TX TIC CENTE EXTRASPIN AL 1/> REGION CHIROPRAC 95588 [place] RENEE PRA TIC 6 MANIPLTV CHIROPRAC TX TIC CENTE EXTRASPIN AL 1/> REGION CHIROPRAC 93207 [place]ANT[place] TIC 6 AMA MANIPULAT CHIROPRAC DOMINICK TX TIC CENTE SPINAL 3-4 REGIONS MANUAL 69015 [place] CANT[place] THERAPY 6 AMA TQS 1/> CHIROPRAC REGIONS TIC CENTE EACH 15 MINUTES APPL 31457 [place] MODALITY 6 1/> AREAS CHIROPRAC CHIROPRAC TIC CENTE TIC CENTE ULTRASOUN D EA 15 MIN APPL 51871 [place] CANT[place] MODALITY 6 AMA 1/> AREAS CHIROPRAC ELEC TIC CENTE STIMJ UNATTENDE D APPL 24631 [place] CANT[place] MODALITY 6 AMA 1/> AREAS CHIROPRAC TRACTION TIC CENTE MECHANICA L APPL 71695 [place] MODALITY 6 1/> AREAS CHIROPRAC CHIROPRAC TRACTION TIC CENTE TIC CENTE MECHANICA L APPL 80287 [place] CANT[place] MODALITY 6 AMA 1/> AREAS CHIROPRAC ELEC TIC CENTE STIMJ UNATTENDE D MANUAL 17485 [place] C[place] THERAPY 6 AMA TQS 1/> CHIROPRAC REGIONS TIC CENTE EACH 15 MINUTES CHIROPRAC 62560 [place] CANT[place] TIC 6 AMA MANIPULAT CHIROPRAC DOMINICK TX TIC CENTE SPINAL 3-4 REGIONS CHIROPRAC 42520 [place] CANT[place] TIC 6 AMA MANIPLTV CHIROPRAC TX TIC CENTE EXTRASPIN AL 1/> REGION CHIROPRAC 34696 [place] CANT[place] TIC 6 AMA MANIPLTV CHIROPRAC TX TIC CENTE EXTRASPIN AL 1/> REGION CHIROPRAC 46297 [place] CANT[place] TIC 6 AMA MANIPULAT CHIROPRAC DOMINICK TX TIC CENTE SPINAL 3-4 REGIONS MANUAL 48316 [place] CANT[place] THERAPY 6 AMA TQS 1/> CHIROPRAC REGIONS TIC CENTE EACH 15 MINUTES APPL 83656 [place] CANT[place] MODALITY 6 AMA 1/> AREAS CHIROPRAC ELEC TIC CENTE STIMJ UNATTENDE D APPL 56999 [place] MODALITY 6 1/> AREAS CHIROPRAC CHIROPRAC TRACTION TIC CENTE TIC CENTE MECHANICA L APPL 47218 [place] CANT[place] MODALITY 6 AMA 1/> AREAS CHIROPRAC TRACTION TIC CENTE MECHANICA L APPL 50936 [place]ANT[place] MODALITY 6 AMA 1/> AREAS CHIROPRAC ELEC TIC CENTE STIMJ UNATTENDE D MANUAL 54256 [place] CANT[place] THERAPY 6 AMA TQS 1/> CHIROPRAC REGIONS TIC CENTE EACH 15 MINUTES CHIROPRAC 34332 [place] CANT[place] TIC 6 AMA MANIPULAT CHIROPRAC DOMINICK TX TIC CENTE SPINAL 3-4 REGIONS CHIROPRAC 38547 [place] CANT[place] TIC 6 AMA MANIPLTV CHIROPRAC TX TIC CENTE EXTRASPIN AL 1/> REGION CHIROPRAC 63333 [place] CANT[place] TIC 6 AMA MANIPLTV CHIROPRAC TX TIC CENTE EXTRASPIN AL 1/> REGION CHIROPRAC 09925 [place] CANT[place] TIC 6 AMA MANIPULAT CHIROPRAC DOMINICK TX TIC CENTE SPINAL 3-4 REGIONS MANUAL 21395 [place] CANT[place] THERAPY 6 AMA TQS 1/> CHIROPRAC REGIONS TIC CENTE EACH 15 MINUTES APPL 92089 [place] CANT[place] MODALITY 6 AMA 1/> AREAS CHIROPRAC ELEC TIC CENTE STIMJ UNATTENDE D APPL 65096 [place] CANT[place] MODALITY 6 AMA 1/> AREAS [place] [address] [place] CANT[place]LL 1/> AREAS 6 AMA EACH 15 CHIROPRAC [place] [address] [place] CANT[place]LL 1/> AREAS 6 AMA EACH 15 CHIROPRAC MIN TIC CENTE NEUROMUSC REEDUCA APPL 25380 [place] CANT[place] MODALITY 6 AMA 1/> AREAS CHIROPRAC TRACTION TIC CENTE MECHANICA L APPL 66696 [place] CANT[place] MODALITY 6 AMA 1/> AREAS CHIROPRAC ELEC TIC CENTE STIMJ UNATTENDE D MANUAL 97202 [place] CANT[place] THERAPY 6 AMA TQS 1/> CHIROPRAC REGIONS TIC CENTE EACH 15 MINUTES CHIROPRAC 77541 [place] CANT[place] TIC 6 AMA MANIPULAT CHIROPRAC DOMINICK TX TIC CENTE SPINAL 3-4 REGIONS CHIROPRAC 18451 [place] CANT[place] TIC 6 AMA MANIPLTV CHIROPRAC TX TIC CENTE EXTRASPIN AL 1/> REGION IAADIADOO 32823 YARSANISM SHANIKA 6 [facility] GROUP GROUP A COMPREHEN 58361 ANTONIO ALVAREZ SIVE 6 [facility] METABOLIC INC INC PANEL BLOOD 47430 ANTONIO ALVAREZ COUNT 6 [facility] COMPLETE INC INC AUTO&AUTO DIFRNTL WBC COLLECTIO 43505 [facility] YOLANDE N VENOUS 6 PHYSICIAN STONE BLOOD S GROUP PA-C CORBIN VENIPUNCT URE C-REACTIV 34775 ANTONIO ALVAREZ E PROTEIN 6 [facility] INC INC DNA 87172 ANTONIO ALVAREZ ANTIBODY 6 [facility] [place] [address] ANTONIO ALVAREZ THYROXINE 6 [facility] TOTAL INC INC ANTINUCLE 54963 ANTONIO ALVAREZ AR 6 [facility] [place] [address] ANTONIO ALVAREZ THYROID 6 [facility] STIMULATI INC INC NG HORMONE TSH SEDIMENTA 74061 ANTONIO ALVAREZ TIDIAZ RATE 6 [facility] RBC INC INC NON-AUTOM ATED 25 34828 ANTONIO ALVAREZ HYDROXY 6 [facility] INCLUDES INC INC FRACTIONS IF PERFORMED CREATINE 78333 ANTONIO ANTONIO KINASE 6 [facility] TOTAL INC INC OPHTH 02144 [facility] 6 GRE GRE XM&EVAL COMPRE NEW PT 1/> VST THERAPEUT 59484 [facility] JEFFRY IC 6 PHYSICIAN HUGH PROPHYLAC S GROUP TIC/DX INJECTION SUBQ/IM INJECTION J1040 [facility] 6 PHYSICIAN HUGH METHYLPRE S GROUP DNISOLONE ACETATE 80 MG INJECTION J0696 [facility] JEFFRY 6 PHYSICIAN HUGH CEFTRIAXO S GROUP NE SODIUM PER 250 MG INJECTION J0696 [facility] JEFFRY 6 PHYSICIAN HUGH CEFTRIAXO S GROUP NE SODIUM PER 250 MG INJECTION J1040 [facility] JEFFRY 6 PHYSICIAN HUGH METHYLPRE S GROUP DNISOLONE ACETATE 80 MG THERAPEUT 89436 [facility] IC 6 PHYSICIAN HUGH PROPHYLAC S GROUP TIC/DX INJECTION SUBQ/IM THERAPEUT [address] IC 6 [facility] TIC/DX INJECTION SUBQ/IM INJECTION J[address] 6 [facility] SONE SODIUM PHOSPHATE 1 MG INJECTION J0561 [facility] [address] 6 [facility] N G [place] E 912807 UNITS TOTAL 56155 [facility] SCHULSTAD ABDOMINAL 5 PHYSICIAN CAM S GROUP HYSTERECT W/[place] [address] [facility], PICKLESIM SURG 5 [facility] GROSS&HUGH ROSCOPIC EXAM ANESTHESI 48517 [facility] JADEN A 5 ANESTH INTRAPERI OF THE TONEAL BLUE LOWER ABD W/LAPS NOS SMR PRIM 19705 ROSIBEL ROMAN SRC WET [address] [facility] NFCT AGT CULTURE 20488 ANTONIO ALVAREZ BACTERIAL 5 [facility] INC INC QUANTTATI VE COLONY COUNT URINE COLLECTIO 74019 ANTONIO ALVAREZ N VENOUS 5 [facility] BLOOD INC INC VENIPUNCT URE URNLS DIP 16431 ANTONIO ALVAREZ 5 [facility] STICK/TAB INC INC LET REAGENT AUTO MICROSCOP Y SUSCEPTIB 13083 ANTONIO ALVAREZ LTY STDY 5 [facility] ANTIMICRB INC INC IAL MICRO/AGA R DILUTJ GONADOTRO 05008 ANTONIO ALVAREZ PIN 5 [facility] CHORIONIC INC INC QUALITATI VE BLOOD 75280 ANTONIO ALVAREZ COUNT 5 [facility] COMPLETE INC INC AUTO&[place] [address] ANTONIO ALVAREZ TRANSVAGI 5 [facility] NAL INC INC URINLS 56040 ROSIBEL ROMAN DIP 5 JESSIE BOTELLO SHASTA STICK/TAB LET REAGNT NON-AUTO MICRSCPY CHIROPRAC 59735 EMMIE SALEEM TIC 5 GAR MANIPULAT CHIROPRAC DOMINICK TX TIC CENTE SPINAL 1-2 REGIONS APPL 40813 EMMIE SALEEM MODALITY 5 GAR 1/> AREAS CHIROPRAC [place] [address] EMMIE SALEEM 1/> AREAS 5 GAR EACH 15 CHIROPRAC MIN TIC CENTE NEUROMUSC REEDUCA CHIROPRAC 41977 EMMIE SALEEM TIC 5 GAR MANIPLTV CHIROPRAC TX TIC CENTE EXTRASPIN AL 1/> REGION CHIROPRAC 79959 EMMIE SALEEM TIC 5 GAR MANIPLTV CHIROPRAC TX TIC CENTE EXTRASPIN AL 1/> REGION CHIROPRAC 72772 EMMIE SALE[place] TIC 5 GAR MANIPULAT CHIROPRAC DOMINICK TX TIC CENTE SPINAL 1-[place] [address] EMMIE SALEEM 1/> AREAS 5 GAR EACH 15 CHIROPRAC [place] [address] EMMIE SALEEM 1/> AREAS 5 GAR EACH 15 CHIROPRAC [place] [address] EMMIE SALEEM 1/> AREAS 5 GAR EACH 15 CHIROPRAC MINUTES TIC CENTE MASSAGE CHIROPRAC 48915 EMMIE SALEEM TIC 5 GAR MANIPULAT CHIROPRAC DOMINICK TX TIC CENTE SPINAL 1-[place] [address] EMMIE SALEEM 1/> AREAS 5 GAR EACH 15 CHIROPRAC MIN TIC CENTE NEUROMUSC REEDUCA URNLS DIP 69009 ANTONIO BELTRAN 5 [facility] LET RGNT NON-AUTO W/O MICRSCP COMPREHEN 84000 ANTONIO GIRARD 5 [facility] METABOLIC INC INC PANEL URNLS DIP 46005 ANTONIO ALVAREZ 5 [facility] STICK/TAB INC INC LET REAGENT AUTO MICROSCOP Y BLOOD 07555 ANTONIO ALVAREZ COUNT 5 [facility] COMPLETE INC INC AUTO&AUTO DIFRNTL WBC COLLECTIO 87331 ANTONIO Cevallos VENOUS 5 [facility] [place] [address] [facility] ABDOMEN & 5 MEDICAL ARELY PELVIS IMAGING W/O ASS CONTRAST MATERIAL BLOOD 30073 ANTONIO ALVAREZ COUNT 5 [facility] COMPLETE INC INC AUTO&AUTO DIFRNTL WBC COMPREHEN 80164 ANTONIO ALVAREZ SIVE 5 [facility] METABOLIC INC INC PANEL URNLS DIP 27716 ANTONIO ALVAREZ 5 [facility] STICK/TAB INC INC LET REAGENT AUTO MICROSCOP Y COMPREHEN 29454 ANTONIO ALVAREZ SIVE 5 [facility] [place] [address] ANTONIO ALVAREZ INFUSION 5 [facility] THERAPY/P INC INC ROPHYLAXI S /DX 1ST TO 1 HR BLOOD 57545 ANTONIO ALVAREZ COUNT 5 [facility] COMPLETE INC INC AUTO&AUTO DIFRNTL WBC IMMUNOASS 40957 ANTONIO ALVAREZ AY NFCT 5 [facility] AGT ANTB INC INC QUAL/SEMI ANGIE 1 STEP UNCLASSIF J3490 ANTONIO ALVAREZ IED DRUGS 5 [facility] INC INC SMR PRIM 09803 ROSIBEL ROMAN SRC WET 5 [facility] [place] [facility] AGT HGB 00779 ROSIBEL ROMAN QUANTITAT 5 JESSIE VEGAS DOMINICK TRANSCUTA NEOUS ANESTHESI 46497 [facility] VAGINAL 5 ANESTH LUCERO OF THE PROCEDURE [place] [address] ANTONIO ALVAREZ INFUSION 5 [facility] THERAPY INC INC PROPHYLAX IS/DX EA HOUR BLOOD 21162 ANTONIO ALVAREZ COUNT 5 [facility] [address] [facility], [facility], SURG 5 [facility] PATHOLOGY GROSS&HUGH ROSCOPIC EXAM UNCLASSIF J3490 ANTONIO ALVAREZ IED DRUGS 5 [facility] INC INC COLLECTIO 09070 ANTONIO ALVAREZ N VENOUS 5 [facility] BLOOD INC INC VENIPUNCT URE DILATION 04781 ANTONIO ALVAREZ & 5 [facility] CURETTAGE INC INC DX&/THER NONOBSTET JACQUI BLOOD 39263 ANTONIO ALVAREZ COUNT 5 [facility] HEMOGLOBI INC INC N INJECTION J2405 ANTONIO ALVAREZ 5 [facility] ONDANSETR INC INC ON HCL PER 1 MG URINE 93125 ANTONIO ALVAREZ 5 [facility] TEST INC INC VISUAL COLOR CMPRSN METHS BLOOD 52275 ANTONIO ALVAREZ COUNT 5 [facility] COMPLETE INC INC AUTO&AUTO DIFRNTL WBC URNLS DIP 36132 ANTONIO ALVAREZ 5 [facility] STICK/TAB INC INC LET REAGENT AUTO MICROSCOP Y COLLECTIO 78317 ANTONIO ALVAREZ N VENOUS 5 [facility] BLOOD INC INC VENIPUNCT URE CULTURE 81703 ANTONIO ALVAREZ BACTERIAL 5 [facility] INC INC QUANTTATI VE COLONY COUNT URINE COLLECTIO 11551 ANTONIO ANTONIO N VENOUS 5 [facility] BLOOD INC INC VENIPUNCT URE BLOOD 15504 ANTONIO ALVAREZ COUNT 5 [facility] COMPLETE INC INC AUTO&[place] [address] [place] [facility] TRANSVAGI 5 MEDICAL HARINDER NAL IMAGING [facility]- 74038 ANTONIO ANTONIO AIDED 5 [facility] DETECTION INC INC SCREENING MAMMOGRAP HY SCREENING G0202 ANTONIO ALVAREZ 5 [facility] MAMMOGRAP INC INC HY MICHELE INCL CAD WHEN PERFORMD Encounters Encounter Start End Date Code Location Performer Type Date OFFICE 58028 [facility] STONE OUTPATIEN 7 7 PHYSICIAN T VISIT S GROUP 25 MINUTES OFFICE 95726 [facility] STONE OUTPATIEN 7 7 PHYSICIAN T VISIT 5 S GROUP MINUTES [facility]OSP[facility] - 7 7 [facility] OUTPATIEN INC T OFFICE 63155 [facility] STONE OUTPATIEN 7 7 PHYSICIAN T VISIT S GROUP 15 MINUTES EMERGENCY 65340 ANTONIO DEPT 7 7 [facility] VISIT INC HIGH SEVERITY& THREAT FUN [facility]OSP[facility] AN[facility]IO - 7 7 [facility] OUTPATIEN INC T OFFICE 84851 ANTONIO OUTPATIEN 7 7 [facility] T VISIT 5 INC MINUTES [facility]OSPITAL [facility]IO - 7 7 [facility] OUTPATIEN INC T OFFICE 32045 [facility] [place] OUTPATIEN 7 7 PHYSICIAN T VISIT GROUP 15 MINUTES HOSPITAL ANTONIO - 7 7 [facility] OUTPATIEN INC T OFFICE 19514 [facility] [place] OUTPATIEN 7 7 PHYSICIAN T VISIT GROUP 15 MINUTES HOSPITAL ANTONIO - 7 7 [facility] OUTPATIEN INC T EMERGENCY 52643 ANTONIO 7 7 [facility] DEPARTMEN INC T VISIT HIGH/URGE NT SEVERITY EMERGENCY 05660 AL[facility] DEY DEPT 7 7 PHYSICIAN VISIT S, [facility] HIGH SEVERITY& THREAT [facility] ANTONIO - 7 7 [facility] OUTPATIEN INC T OFFICE 34045 [facility] STONE OUTPATIEN 7 7 PHYSICIAN T VISIT S GROUP 15 MINUTES OFFICE 94480 [facility] STONE OUTPATIEN 7 7 PHYSICIAN T VISIT S GROUP 25 MINUTES OFFICE 10609 [facility] [place] OUTPATIEN 7 7 PHYSICIAN T VISIT S GROUP 15 MINUTES HOSPITAL ANTONIO - 7 7 [facility] OUTPATIEN INC T OFFICE 82133 ANTONIO OUTPATIEN 7 7 [facility] T VISIT 5 INC MINUTES OFFICE 59086 [facility] [place] OUTPATIEN 7 7 PHYSICIAN T VISIT S GROUP 25 MINUTES OFFICE 29249 [facility] STONE OUTPATIEN 7 7 PHYSICIAN T VISIT S GROUP 25 MINUTES OFFICE 47026 [facility] [place] OUT[facility]IEN 7 7 PHYSICIAN T VISIT S GROUP 25 MINUTES OFFICE 51865 H OUTPATIEN 6 6 PHYSICIAN T VISIT S GROUP 15 MINUTES OFFICE 12441 [facility] [place] OUTPATIEN 6 6 PHYSICIAN T VISIT S GROUP 15 MINUTES OFFICE 92685 [facility] [place] OUTPATIEN 6 6 PHYSICIAN T VISIT S GROUP 25 MINUTES HOSPITAL ANTONIO - 6 6 [facility] OUTPATIEN INC T PERIODIC 03433 [facility] HARPEL PREVENTIV 6 6 PHYSICIAN SHASTA E MED EST S GROUP PATIENT 40-64YRS OFFICE 35239 [facility] [place] OUTPATIEN 6 6 PHYSICIAN EUG T VISIT S GROUP 15 MINUTES HOSPITAL ANTONIO - 6 6 [facility] OUTPATIEN INC T OFFICE 96992 [facility] [place] OUTPATIEN 6 6 PHYSICIAN T NEW 30 S GROUP MINUTES OFFICE 54362 [facility] [place] OUTPATIEN 6 6 PHYSICIAN EUG T VISIT S GROUP 15 MINUTES HOSPITAL ANTONIO - 6 6 [facility] OUTPATIEN INC T OFFICE 82868 [facility] [place] OUTPATIEN 6 6 PHYSICIAN T VISIT GROUP 25 MINUTES OFFICE 34083 TYLERTYSHAWN HUFFELL OUTPATIEN 6 6 AMA T VISIT CHIROPRAC 15 TIC CENTE MINUTES OFFICE 88925 [facility] GAGE OUTPATIEN 6 6 PHYSICIAN T VISIT GROUP 15 MINUTES OFFICE 29741 JOSÉTHITYSHAWN CANTRELL OUTPATIEN 6 6 AMA T VISIT CHIROPRAC 15 TIC CENTE MINUTES EMERGENCY 28782 [facility] 6 6 [facility] DEPARTMEN INC T VISIT LOW/MODER SEVERITY EMERGENCY 91301 [facility] 6 6 PHYSICIAN DEPARTMEN S, PLL[facility] T VISIT MODERATE SEVERITY HOSPITAL ANTONIO - 6 6 [facility] OUTPATIEN INC T OFFICE 30113 ANTONIO GAGE OUTPATIEN 6 6 [facility] T VISIT HOSPITAL 25 MINUTES OFFICE 77340 YARSANISM SHANIKA OUTPATIEN 6 6 [facility] T VISIT MEDICAL 15 GROUP MINUTES OFFICE 50031 [facility] YOLANDE OUTPATIEN 6 6 PHYSICIAN STONE T VISIT S GROUP PA-C CORBIN 25 MINUTES HOSPITAL ANTONIO - 6 6 [facility] OUTPATIEN INC T OFFICE 99933 ROSIBEL ROMAN OUTPATIEN 6 6 JESSIE BOTELLO SHASTA T VISIT 15 MINUTES OFFICE 79795 [facility] JEFFRY OUTPATIEN 6 6 PHYSICIAN HUGH T VISIT S GROUP 15 MINUTES OFFICE 97020 [facility] JEFFRY OUTPATIEN 6 6 PHYSICIAN HUGH T VISIT S GROUP 15 MINUTES OFFICE 71164 ANTONIO EASLEY OUTPATIEN 6 6 [facility] T VISIT HOSPITAL 15 MINUTES HOSPITAL ANTONIO - 5 6 [facility] INPATIENT INC OFFICE 89187 ROSIBEL ROMAN OUTPATIEN 5 5 JESSIE VEGAS T VISIT 15 MINUTES HOSPITAL ANTONIO - 5 5 [facility] OUTPATIEN [facility] T [facility]OSPITAL ANTONIO - 5 5 [facility] OUTPATIEN INC T OFFICE 61151 ROSIBEL ROMAN OUTPATIEN 5 5 JESSIE VEGAS T VISIT 25 MINUTES OFFICE 94573 EMMIE SALEEM OUTPATIEN 5 5 [facility] T VISIT CHIROPRAC 10 TIC CENTE MINUTES OFFICE 56472 ANTONIO BELTRAN OUTPATIEN 5 5 [facility] VISIT HOSPITAL 15 MINUTES HOSPITAL ANTONIO - 5 5 [facility] OUTPATIEN INC T EMERGENCY 53568 ALYSIA TERAN 5 5 PHYSICIAN [facility] T VISIT HIGH/URGE NT SEVERITY EMERGENCY 56396 ANTONIO 5 5 [facility] DEPARTMEN INC T VISIT MODERATE SEVERITY HOSPITAL ANTONIO - 5 5 [facility] OUTPATIEN INC T EMERGENCY 42536 ANTONIO Apodaca 5 5 [facility] T VISIT P MODERATE SEVERITY HOSPITAL ANTONIO - 5 5 [facility] OUTPATIEN INC T EMERGENCY 26923 ANTONIO 5 5 [facility] DEPARTMEN INC T VISIT HIGH/URGE NT SEVERITY OFFICE 75230 ROSIBEL ROMAN OUTPATIEN 5 5 JESSIE VEGAS T VISIT 15 MINUTES HOSPITAL ANTONIO - 5 5 [facility] T [facility] ANTONIO - 5 5 [facility] INC T OFFICE 96032 ROSIBEL ROMAN OUTPATIEN 5 5 JESSIE VEGAS T VISIT 15 MINUTES OFFICE 34378 ROSIBEL ROSALESPATIDWIGHT 5 5 JESSIE VEGAS T VISIT 15 MINUTES HOSPITAL ANTONIO - 5 5 [facility] OUTPATIEN INC T OFFICE 60557 ROSIBEL ROSALESPATIDWIGHT 5 5 JESSIE VEGAS T VISIT 15 MINUTES HOSPITAL ANTONIO - 5 5 [facility] OUTPATIEN INC T
--- OUTSIDE RECORDS SUMMARY | 2017-03-15 22:12 | External Medical Summary Rpt | CCD ---
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 Name Role Phone [facility] Unavailable Unavailable MEDICAL GROUP, [facility] BEINEKE HARINDER, BEINEKE Unavailable [...] Unavailable JESSIE LOPEZ MD Unavailable Unavailable [facility] Un[facility], [facility] Unavailable Unavailable [facility], [facility] Unavailable Unavailable [facility] P, [facility] P [facility], Unavailable [facility]available [facility], Unavailable Unavailable [facility] CANTRELL AMA, CANTRELL Unavailable Unavailable AMA DEY, DEY Unavailable Unavailable [facility] Unavailable Unavailable [facility], [facility], Unavailable Unavailable [...] Diagnosis DOS Provider Status [id number] OTHER 01-25-2017 [facility] OBESITY DUE PHYSICIANS TO EXCESS GROUP CALORIES J4520 MILD 01-25-2017 [facility] INTERMITTEN PHYSICIANS T ASTHMA GROUP UNCOMPLICAT ED M2550 PAIN IN 01-25-2017 [facility] UNSPECIFIED PHYSICIANS JOINT GROUP R739 HYPERGLYCEM 01-25-2017 [facility] IA PHYSICIANS UNSPECIFIED GROUP Z6841 BODY MASS 01-25-2017 [facility] INDEX BMI PHYSICIANS 40.0-44.9 GROUP ADULT R0602 SHORTNESS 01-24-2017 [place] [facility] BREATH [facility] R0989 OTH SPEC SX 01-24-2017 [place] & SIGNS MEDICAL INVLV THE IMAGING ASS CIRC & RESP SYS J40 BRONCHITIS 01-16-2017 [facility] NOT PHYSICIANS SPECIFIED GROUP ACUTE OR CHRONIC R5381 OTHER 01-15-2017 [facility] MALAISE PHYSICIANS GROUP I10 ESSENTIAL 01-14-2017 [facility] PRIMARY [facility]YS[facility]ANS, HYPERTENSIO PLLC N J040 ACUTE 01-14-2017 [facility] P J209 ACUTE 01-14-2017 [facility] BRONCHITIS PHYSICIANS, UNSPECIFIED PLLC R0600 DYSPNEA 01-14-2017 [place] [facility]NSPECIFIED [facility] [id number] UNS ADVERS 01-14-2017 [facility] EFFECT PHYSICIANS, DRUG/MEDICA PLLC MENT INITIAL ENCNTR J189 PNEUMONIA 01-12-2017 [facility]NSPECIFIED [facility] ORGANISM INC H6504 ACUTE 01-09-2017 [facility] SEROUS PHYSICIAN OTITIS GROUP MEDIA RECURRENT RIGHT EAR J0101 ACUTE 01-09-2017 [facility] RECURRENT PHYSICIAN MAXILLARY GROUP SINUSITIS I209 ANGINA 12-07-2016 [facility] PECTORIS [facility] UNSPECIFIED INC R9431 ABNORMAL 12-07-2016 [facility] ELECTROCARD [facility] IOGRAM INC Z8249 FAMILY HX 12-07-2016 [facility] ISCHEMIC [facility] HRT DZ OTH INC DZ CIRC SYSTEM H6693 OTITIS 12-03-2016 [facility] MEDIA PHYSICIAN UNSPECIFIED GROUP BILATERAL J0100 ACUTE 12-03-2016 [facility] MAXILLARY PHYSICIAN SINUSITIS GROUP UNSPECIFIED R002 PALPITATION 12-01-2016 [facility] Jimenez PHYSICIANS, [facility] R079 CHEST PAIN 12-01-2016 [place] [facility] E8770 FLUID 11-29-2016 [facility] OVERLOAD [facility] UNSPECIFIED INC Z0389 ENCOUNTER 11-16-2016 [facility] OT MEDICAL SUSPCT DZ & IMAGING ASS COND RULED OUT [id number] SPRAIN UNS 10-20-2016 [facility] LIGAMENT PHYSICIANS LEFT ANKLE GROUP INITIAL ENCOUNTER J069 ACUTE UPPER 10-16-2016 [facility] RESPIRATORY INC INFECTION UNSPECIFIED [id number] PRIMARY 10-10-2016 [place] OSTEOARTHRI [facility]ICAL TIS LEFT IMAGING ASS ANKLE AND FOOT K57799 PAIN IN 10-10-2016 [place] RIGHT CHIROPRACTI SHOULDER C CENTE M5381 OTHER SPEC 10-10-2016 [place] DORSOPATHIE CHIROPRACTI S C CENTE OCCIPITO-AT HEATHER-AXIAL RGN M5386 OTHER 10-10-2016 [place] SPECIFIED CHIROPRACTI DORSOPATHIE C CENTE S LUMBAR REGION M5442 LUMBAGO 10-10-2016 [place] WITH CHIROPRACTI SCIATICA C CENTE LEFT SIDE M546 PAIN IN 10-10-2016 [place] THORACIC CHIROPRACTI SPINE C CENTE W65377 PAIN IN 10-10-2016 [place] LEFT FOOT MEDICAL IMAGING ASS M9906 SEGMENTAL & 10-10-2016 [place] SOMATIC CHIROPRACTI DYSFUNCTION C CENTE LOWER EXTREMITY U63270 ACUTE 06-29-2016 [facility] SUPPURATIVE PHYSICIANS OM W/O GROUP RUPT EAR DRUM RT EAR R109 UNSPECIFIED 06-29-2016 [facility] ABDOMINAL PHYSICIANS PAIN GROUP J029 ACUTE 05-04-2016 [facility] PHARYNGITIS PHYSICIANS GROUP UNSPECIFIED Z1231 ENCOUNTER 05-01-2016 [place] SCREENING MEDICAL MAMMO MALIG IMAGING ASS NEOPLASM BREAST N951 MENOPAUSAL 04-25-2016 [facility] AND FEMALE PHYSICIANS CLIMACTERIC GROUP STATES V44614 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[facility] HEAD ORTHOPEDIC TEAM PHYSICIAN EXAM PHYSICIANS GENERAL RTN GROUP W/O ABNORMAL FIND Z1212 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[facility] SCREENING PHYSICIANS MALIGNANT GROUP NEOPLASM RECTUM J0390 ACUTE 04-13-2016 [facility] TONSILLITIS PHYSICIANS GROUP UNSPECIFIED M542 CERVICALGIA 03-30-2016 [place] CHIROPRACTI C CENTE L620OOT SPRAIN 03-30-2016 [place] LIGAMENTS CHIROPRACTI LUMBAR C CENTE SPINE INITIAL ENCOUNTER [id number] STRAIN 03-30-2016 [place] MUSCLE CHIROPRACTI FASCIA & C CENTE TENDON LOW BACK INITIAL S55132 PAIN IN 03-28-2016 [place] LEFT HAND [facility]ICAL [facility] ASS M7989 OTHER 03-28-2016 [place] SPECIFIED MEDICAL SOFT TISSUE IMAGING ASS DISORDERS 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 M654 RADIAL 03-15-2016 [facility] STYLOID PHYSICIANS TENOSYNOVIT GROUP IS DE QUERVAIN M21462 GANGLION 03-15-2016 [facility] RIGHT WRIST PHYSICIANS GROUP U34064 GANGLION 03-15-2016 [facility] LEFT WRIST PHYSICIANS GROUP H48281 PAIN IN 03-07-2016 [place] LEFT WRIST MEDICAL IMAGING ASS K61769 GANGLION 03-07-2016 [facility] RIGHT HAND PHYSICIANS GROUP G70797 GANGLION 03-07-2016 [facility] LEFT HAND PHYSICIANS GROUP E47279 PAIN IN 03-07-2016 [place] RIGHT HAND [facility]ICAL [facility] M9903 SEGMENTAL & 01-21-2016 [place] SOMATIC CHIROPRACTI DYSFUNCTION C CENTE OF LUMBAR REGION M545 LOW BACK 01-11-2016 [place] PAIN CHIROPRACTI C CENTE K1120 SIALOADENIT 01-04-2016 [facility] IS PHYSICIANS, UNSPECIFIED PLLC K1121 ACUTE 01-04-2016 [place] [facility]I [facility] IS INC J329 CHRONIC 12-27-2015 [facility] J0140 ACUTE 11-22-2015 [facility] MEDICAL UNSPECIFIED GROUP H6980 OTHER SPEC 11-09-2015 [facility] DISORDERS PHYSICIANS EUSTACHIAN GROUP TUBE UNS EAR Y36332 UNSPECIFIED 11-09-2015 [facility] ASTHMA PHYSICIANS UNCOMPLICAT GROUP ED R5383 OTHER 11-09-2015 [facility] FATIGUE PHYSICIANS GROUP Z840 FAMILY 11-09-2015 [facility] HISTORY PHYSICIANS DISEASES GROUP SKIN & SUBQ TISSUE Z0100 ENCOUNTER 11-04-2015 [facility] EXAM EYES & GRE VISION W/O ABNORMAL FIND H6690 OTITIS 09-22-2015 [facility] MEDIA PHYSICIANS UNSPECIFIED GROUP UNSPECIFIED EAR Y38837 OTHER ACUTE 09-12-2015 [facility] DOMINICK OM RECURRENT BILAT J0190 ACUTE 09-12-2015 [place] SINUSITIS [facility] D259 LEIOMYOMA 06-03-2015 [facility] UNSPECIFIED K660 PERITONEAL 06-03-2015 [facility] ADHESIONS [facility] POSTPROC INC POSTINFECTI ON N736 FEMALE 06-03-2015 [facility] PELVIC PHYSICIANS PERITONEAL GROUP ADHESIONS POSTINFECTI VE N800 ENDOMETRIOS 06-03-2015 [facility] IS OF [facility] UTERUS N831 CORPUS 06-03-2015 [facility] N8320 UNSPECIFIED 06-03-2015 [facility] OVARIAN PHYSICIANS CYSTS GROUP N856 INTRAUTERIN 06-03-2015 [facility] E [facility] N938 OTHER SPEC 06-03-2015 [facility] ABNORMAL PHYSICIANS UTERINE & GROUP VAGINAL BLEEDING R102 PELVIC AND 06-03-2015 [facility] PERINEAL [facility] PAIN INC B9689 OTH SPEC 05-24-2015 [facility] Ceballos BACTERIAL JESSIE BOTELLO AGNT CAUSE DZ CLASSIFIED ELSW N760 ACUTE 05-24-2015 [facility] ROMAN MD K74789 ENCOUNTER 05-24-2015 [facility] FOR OTHER [facility] PREPROCEDUR INC AL EXAMINATION N852 HYPERTROPHY 05-10-2015 [place] [facility] N9489 OTH COND 05-04-2015 [facility]all[facility] ASSOC W/FE JESSIE BOTELLO GEN ORGN & MENSTRUAL CYCL 4019 UNSPECIFIED 02-03-2015 [facility] N 50654 ASTHMA, 02-03-2015 [place] [facility]US 5990 URINARY 02-03-2015 [facility] INFECTION [facility]OSPITAL SITE NOT SPECIFIED 07367 ABDOMINAL 01-05-2015 [facility] PAIN OTHER [facility] SPECIFIED INC SITE 75366 OTHER 11-03-2014 [place] SPECIFIED MEDICAL DISORDER OF IMAGING ASS KIDNEY AND URETER 08588 ABDOMINAL 11-03-2014 [facility] PAIN RIGHT [facility] UPPER INC QUADRANT V1301 PERSONAL 11-03-2014 [place] HISTORY OF [facility] URINARY INC CALCULI 462 ACUTE 10-07-2014 [place] PHARYNGITIS [facility] P 84243 ACUTE 10-07-2014 [place] [facility] MENTION OF OBSTRUCTIO 15280 UNSPECIFIED 09-14-2014 [facility] ROMAN MD AND VULVOVAGINI [...] NO 00 2- 9- 00 01 ve SC 52 20 20 19 AI IL 00 17 17 37 D -H [address] AR Z MA 20 CY -2 5 #3 MG 93 8 TA B ME 42 08 09 60 30 00 RI Ac TF 80 -2 -2 .0 00 TE ti OR 60 4- 2- 00 01 ve ID 31 20 20 19 AI N 30 [...] YL 15 1- 8- 00 01 ve SC 02 20 20 19 AI ED 20 [...] NO 00 7- 1- 00 01 ve SC 52 20 20 19 AI IL 00 17 17 37 D -H [address] AR Z MA 20 CY -2 5 #3 MG 93 8 TA B FU 00 06 07 30 30 00 RI Ac RO 37 -1 -1 .0 00 TE ti SE 80 5- 4- 00 01 ve ID 21 20 20 18 AI DE 61 [...] NO 00 9- 4- 00 01 ve SC 52 20 20 17 AI IL 00 [...] NO 00 3- 6- 00 01 ve SC 52 20 20 17 AI IL 00 [...] NO 00 6- 9- 00 01 ve SC 52 20 20 17 AI IL 00 [...] NO 00 2- 7- 00 01 ve SC 52 20 20 16 AI IL 00 [...] MG #3 TA 93 BL 8 ET SC 59 01 02 10 5 00 RI [...] NO 00 5- 0- 00 01 ve SC 52 20 20 16 AI IL 00 [...] MG #3 93 TA 8 BL ET SC 00 12 01 20 10 00 RI Ac OM 60 -2 -2 0. 00 TE ti ET 31 2- 0- 00 01 ve RAMIRES 58 20 20 0 16 AI ZI 65 16 17 36 D NE 4 14 PH -D AR M MA SY CY RU P #3 93 8 SC 00 12 01 10 5 00 RI [...] NO 00 5- 3- 00 01 ve SC 52 20 20 16 AI IL 00 16 17 26 D -H [address] AR Z MA 20 CY -2 5 #3 MG 93 8 TA B Procedures Procedure DOS Code Location Performer Comment CT THORAX 69067 [place] MAZARIEGOS W/O 7 MEDICAL CONTRAST IMAGING MATERIAL ASS SMR PRIM 64473 [facility] SRC 7 [facility] GRAM/GIEM INC INC SA STAIN BCT FUNGI/RONI L INJECTION J0696 [facility] STONE 7 PHYSICIAN CEFTRIAXO S GROUP NE SODIUM PER 250 MG THERAPEUT 79827 [facility] STONE IC 7 PHYSICIAN PROPHYLAC S GROUP TIC/DX INJECTION SUBQ/IM CUL BACT 65441 [facility] XCPT 7 [facility] URINE INC INC BLOOD/STO OL AEROBIC ISOL THERAPEUT 51997 [facility] STONE IC 7 PHYSICIAN PROPHYLAC S GROUP TIC/DX INJECTION SUBQ/IM INJECTION J0696 [facility] STONE 7 PHYSICIAN CEFTRIAXO S GROUP NE SODIUM PER 250 MG COMPREHEN 85646 [facility] SIVE 7 [facility] METABOLIC INC INC PANEL ECG 23173 [facility] TREADWELL ROUTINE 7 [facility] W/LEAST P 12 LDS I&R ONLY UNCLASSIF J3490 [facility] IED DRUGS 7 [facility] INC INC GLUC BLD 87958 [facility] GLUC MNTR 7 [facility] DEV INC INC CLEARED FDA SPEC HOME USE NATRIURET 37541 [facility] AL[facility]Z IC 7 [facility] [place] [address] [facility] AL[facility]AREZ TROPONIN 7 [facility] QUANTITAT INC INC DOMINICK THYROID 96208 [facility] AL[facility]Z HORM 7 [facility] UPTK/THYR INC INC OID HORMONE BINDING RATIO BLOOD 06796 [facility] ALV[facility]Z COUNT 7 [facility] COMPLETE INC INC AUTO&AUTO DIFRNTL WBC CREATINE 25982 [facility] AL[facility] KINASE 7 [facility] TOTAL INC INC FIBRIN 09312 [facility] AL[facility] DGRADJ 7 [facility] PRODUCTS INC INC D-DIMER QUAL/SEMI ANGIE ECG 60733 [facility] ALVAREZ ROUTINE 7 [facility] ECG INC INC W/LEAST 12 LDS TRCG ONLY W/O I&[place] [address] [facility] AL[facility] THYROXINE 7 [facility] TOTAL INC INC RADIOLOGI 16169 [facility] AL[facility]AREZ C 7 [facility] EXAMINATI INC INC ON CHEST SINGLE VIEW FRONTAL CREATINE 06992 [facility] ALVAREZ KINASE MB 7 [facility] [place] [address] [facility] ALVARE[facility] THYROID 7 [facility] STIMULATI INC INC NG HORMONE TSH RADIOLOGI 10015 [facility] ALVAREZ C EXAM 7 [facility]OSP CHEST 2 INC INC VIEWS FRONTAL&L ATERAL ECG 66776 [facility] ALVAREZ ROUTINE 7 [facility] ECG INC INC W/LEAST 12 LDS TRCG ONLY W/O I&R THERAPEUT 82111 [facility] FRYMAN IC 7 PHYSICIAN PROPHYLAC GROUP TIC/DX INJECTION SUBQ/IM INJECTION J0696 [facility] FRYMAN 7 PHYSICIAN CEFTRIAXO GROUP NE SODIUM PER 250 MG BLOOD 49622 [facility] AL[facility] COUNT 7 [facility] COMPLETE INC INC AUTO&AUTO DIFRNTL WBC BASIC 23246 [facility] AL[facility] METABOLIC 7 [facility] PANEL INC INC [facility] G0378 [facility] OBSERVATI 7 [facility] ON INC INC SERVICE PER HOUR CREATINE 07448 [facility] ALVAREZ KINASE MB 7 MEM [facility] [place] [address] [facility] AL[facility] THYROID 7 [facility]OS[facility] STIMULATI INC INC NG HORMONE TSH RADIOLOGI 40944 [facility] AL[facility]AREZ C 7 [facility] EXAMINATI INC INC [place] [address] [facility] ALVAREZ THYROXINE 7 [facility]OS[facility] TOTAL INC INC ECG 27220 [facility] ALVAREZ ROUTINE 7 [facility] ECG INC INC W/LEAST 12 LDS TRCG ONLY W/O I&R CREATINE 68452 [facility] ALVAREZ KINASE 7 [facility] TOTAL INC INC HOSPITAL G0378 [facility] OBSERVATI 7 [facility] ON INC INC SERVICE PER HOUR UNCLASSIF J3490 [facility] IED DRUGS 7 [facility] INC INC BLOOD 93483 [facility] ALVAREZ COUNT 7 [facility] COMPLETE INC INC AUTO&[place] [address] [facility] ALVARE[facility] TROPONIN 7 [facility] QUANTITAT INC INC DOMINICK THYROID 19305 [facility] AL[facility]AREZ HORM 7 [facility] UPTK/THYR INC INC OID HORMONE BINDING RATIO COMPREHEN 35511 [facility] ALV[facility] SIVE 7 [facility] METABOLIC INC INC PANEL OBSERVATI 62799 [facility] JEFFRY ON/INPATI 7 PHYSICIAN ENT S GROUP HOSPITAL CARE 50 MINUTES ECG 32204 [facility] DEY ROUTINE 7 PHYSICIAN ECG S, PLLC W/LEAST 12 LDS I&R ONLY ECHO 25198 [facility] ALVAREZ TTHRC R-T 7 [facility] 2D INC INC W/WOM-MOD E COMPL SPEC&COLR D RADIOLOGI 55412 [facility] EXAM 7 MEDICAL CHEST 2 IMAGING VIEWS ASS FRONTAL&L ATERAL ECG 08641 [facility] TREADWELL ROUTINE 7 [facility] W/LEAST P 12 LDS I&R ONLY COLLECTIO 97485 [facility] STONE N VENOUS 7 PHYSICIAN BLOOD S GROUP VENIPUNCT URE RHYTHM 90945 [facility] STONE ECG 1-3 7 PHYSICIAN LEADS S GROUP W/INTERPR ETATION & REPORT IAADIADOO 05164 [facility]Z 7 [facility] INFLUENZA INC INC IAADIADOO 03022 [facility] ALV[facility]Z 7 [facility] STREPTOCO INC INC CCUS GROUP A MANUAL 61474 [place] T[facility] THERAPY 7 TQS 1/> CHIROPRAC REGIONS TIC CENTE EACH 15 MINUTES RADEX 71290 [place] [facility] FOOT 7 MEDICAL COMPLETE IMAGING MINIMUM 3 [place] [address] [place] T[facility] 1/> AREAS 7 EACH 15 CHIROPRAC MIN TIC CENTE NEUROMUSC REEDUCA CHIROPRAC 27103 [place] [facility] TIC 7 MANIPULAT CHIROPRAC DOMINICK TX TIC CENTE SPINAL 1-2 REGIONS CHIROPRAC 10580 [place] [facility] TIC 7 MANIPLTV CHIROPRAC TX TIC CENTE EXTRASPIN AL 1/> REGION INJECTION J1100 [facility] TYSON 7 PHYSICIAN DEXAMETHO S GROUP SONE SODIUM PHOSPHATE 1 MG THERAPEUT 53306 [facility] TYSON IC 7 PHYSICIAN PROPHYLAC S GROUP TIC/DX INJECTION SUBQ/IM MANUAL 94993 [place] [facility] THERAPY 7 TQS 1/> CHIROPRAC REGIONS TIC CENTE EACH 15 MINUTES CHIROPRAC 48248 [place] [facility] TIC 7 MANIPULAT CHIROPRAC DOMINICK TX TIC CENTE SPINAL 1-2 REGIONS URNLS DIP 21878 [facility] PHYSICIAN STICK/TAB S GROUP S GROUP LET RGNT NON-AUTO W/O MICRSCP INJECTION J0696 [facility] STONE 7 PHYSICIAN CEFTRIAXO S GROUP NE SODIUM PER 250 MG THERAPEUT 47907 [facility] STONE IC 7 PHYSICIAN PROPHYLAC S GROUP TIC/DX INJECTION SUBQ/IM THERAPEUT 03590 [facility] STONE IC 6 PHYSICIAN PROPHYLAC S GROUP TIC/DX INJECTION SUBQ/IM INJECTION J0696 [facility] STONE 6 PHYSICIAN CEFTRIAXO S GROUP NE SODIUM PER 250 MG INJECTION J0696 [facility] FRYMAN 6 PHYSICIAN CEFTRIAXO S GROUP NE SODIUM PER 250 MG THERAPEUT 14776 [facility] FRYMAN IC 6 PHYSICIAN PROPHYLAC S GROUP TIC/DX INJECTION SUBQ/IM SCREENING G0202 [facility] 6 [facility] MAMMOGRAP INC INC HY MICHELE INCL CAD WHEN PERFORMD 02263 [facility] ALV[facility] AIDED 6 [facility] DETECTION INC INC SCREENING MAMMOGRAP HY URINLS 66754 [facility] HARPEL DIP 6 PHYSICIAN SHASTA STICK/TAB S GROUP LET REAGNT NON-AUTO MICRSCPY IADNA 72807 BIO BIO TRICHOMON 6 REFERNCE REFERNCE LABORATOR LABORATOR VAGINALIS IES IES AMPLIFIED PROBE TECH CULTURE 45952 [facility] HARPEL CHLAMYDIA 6 PHYSICIAN SHASTA ANY S GROUP SOURCE CYTP C/V 71820 BIO BIO AUTO THIN 6 REFERNCE REFERNCE LYR LABORATOR LABORATOR PREPJ SCR IES IES MNL RESCR PHYS IADNA 70214 BIO BIO CHLAMYDIA 6 REFERNCE REFERNCE LABORATOR LABORATOR TRACHOMAT IES IES IS AMPLIFIED PROBE TQ IADNA 71843 [facility] NEISSERIA 6 PHYSICIAN PHYSICIAN S GROUP S GROUP GONORRHOE AE DIRECT PROBE TQ IADNA 50962 BIO BIO NEISSERIA 6 REFERNCE REFERNCE LABORATOR LABORATOR GONORRHOE IES IES AE AMPLIFIED PROBE TQ IADNA NOS 79901 BIO BIO 6 REFERNCE REFERNCE AMPLIFIED LABORATOR LABORATOR PROBE TQ IES IES EACH ORGANISM THERAPEUT 13920 [facility] FRYMAN IC 6 PHYSICIAN EUG PROPHYLAC S GROUP TIC/DX INJECTION SUBQ/IM INJECTION J0696 [facility] FRYMAN 6 PHYSICIAN EUG CEFTRIAXO S GROUP NE SODIUM PER 250 MG CHIROPRAC 14264 [facility] C[facility] TIC 6 AMA MANIPULAT CHIROPRAC DOMINICK TX TIC CENTE SPINAL 3-4 REGIONS MANUAL 18109 [place] CANTRELL THERAPY 6 AMA TQS 1/> CHIROPRAC REGIONS TIC CENTE EACH 15 MINUTES CHIROPRAC 71833 [place] CANTRELL TIC 6 AMA MANIPLTV CHIROPRAC TX TIC CENTE EXTRASPIN AL 1/> REGION MRI UPPER 32394 [place] JACOB 6 MEDICAL EXTREMITY IMAGING OTH THAN ASS JT W/O CONTR MATRL APPL 67264 [place] CANTRELL MODALITY 6 AMA 1/> AREAS CHIROPRAC TIC CENTE ULTRASOUN D EA 15 MIN MANUAL 70932 [place] THERAPY 6 AMA TQS 1/> CHIROPRAC REGIONS TIC CENTE EACH 15 MINUTES APPL 03541 [place] MODALITY 6 AMA 1/> AREAS CHIROPRAC ELEC TIC CENTE STIMJ UNATTENDE D CHIROPRAC 94729 [place] TIC 6 AMA MANIPULAT CHIROPRAC DOMINICK TX TIC CENTE SPINAL 3-4 REGIONS CHIROPRAC 55554 [place] TIC 6 AMA MANIPULAT CHIROPRAC DOMINICK TX TIC CENTE SPINAL 3-4 REGIONS APPL 63632 [place] MODALITY 6 AMA 1/> AREAS CHIROPRAC ELEC TIC CENTE STIMJ UNATTENDE D MANUAL 21612 [place] THERAPY 6 AMA TQS 1/> CHIROPRAC REGIONS TIC CENTE EACH 15 MINUTES APPL 96970 [place] MODALITY 6 AMA 1/> AREAS CHIROPRAC TIC CENTE ULTRASOUN D EA 15 MIN RADEX 59125 [place] MAZAR[place] ALL WRIST 2 6 MEDICAL VIEWS IMAGING ASS THERAPEUT 57977 [facility] IC 6 PHYSICIAN PHYSICIAN PROPHYLAC S GROUP S GROUP TIC/DX INJECTION SUBQ/IM RADEX 07380 [place] MAZAR[place] ALL HAND 2 6 MEDICAL VIEWS IMAGING ASS APPL 15785 [place] MODALITY 6 AMA 1/> AREAS CHIROPRAC ELEC TIC CENTE STIMJ UNATTENDE D APPL 68636 [place] MODALITY 6 AMA 1/> AREAS CHIROPRAC TIC CENTE ULTRASOUN D EA 15 MIN MANUAL 10293 [place] THERAPY 6 AMA TQS 1/> CHIROPRAC REGIONS TIC CENTE EACH 15 MINUTES CHIROPRAC 78049 [place] TIC 6 AMA MANIPULAT CHIROPRAC DOMINICK TX TIC CENTE SPINAL 3-4 REGIONS CHIROPRAC 80834 [place] TIC 6 AMA MANIPULAT CHIROPRAC DOMINICK TX TIC CENTE SPINAL 3-4 REGIONS MANUAL 11222 [place] THERAPY 6 AMA TQS 1/> CHIROPRAC REGIONS TIC CENTE EACH 15 MINUTES APPL 06708 [place] MODALITY 6 AMA 1/> AREAS CHIROPRAC TIC CENTE ULTRASOUN D EA 15 MIN APPL 61983 [place] MODALITY 6 AMA 1/> AREAS CHIROPRAC ELEC TIC CENTE STIMJ UNATTENDE D APPL 51576 [place] MODALITY 6 AMA 1/> AREAS CHIROPRAC ELEC TIC CENTE STIMJ UNATTENDE D APPL 53481 [place] MODALITY 6 AMA 1/> AREAS CHIROPRAC TIC CENTE ULTRASOUN D EA 15 MIN MANUAL 21094 [place] THERAPY 6 AMA TQS 1/> CHIROPRAC REGIONS TIC CENTE EACH 15 MINUTES CHIROPRAC 50639 [place] TIC 6 AMA MANIPULAT CHIROPRAC DOMINICK TX TIC CENTE SPINAL 3-4 REGIONS CHIROPRAC 45161 [place] TIC 6 AMA MANIPULAT CHIROPRAC DOMINICK TX TIC CENTE SPINAL 3-4 REGIONS MANUAL 90248 [place] THERAPY 6 AMA TQS 1/> CHIROPRAC REGIONS TIC CENTE EACH 15 MINUTES APPL 72163 [place] MODALITY 6 AMA 1/> AREAS CHIROPRAC ELEC TIC CENTE STIMJ UNATTENDE D APPL 09873 [place] MODALITY 6 AMA 1/> AREAS CHIROPRAC TIC CENTE ULTRASOUN D EA 15 MIN APPL 86222 [place] MODALITY 6 AMA 1/> AREAS CHIROPRAC TIC CENTE ULTRASOUN D EA 15 MIN THERAPEUT 87967 [place] IC PX 1/> 6 AMA AREAS CHIROPRAC EACH 15 TIC CENTE MIN EXERCISES APPL 70140 [place] MODALITY 6 AMA 1/> AREAS CHIROPRAC ELEC TIC CENTE STIMJ UNATTENDE D MANUAL 06152 [place] THERAPY 6 AMA TQS 1/> CHIROPRAC REGIONS TIC CENTE EACH 15 MINUTES CHIROPRAC 89884 [place] TIC 6 AMA MANIPULAT CHIROPRAC DOMINICK TX TIC CENTE SPINAL 3-4 REGIONS CHIROPRAC 05636 [place] TIC 6 AMA MANIPLTV CHIROPRAC TX TIC CENTE EXTRASPIN AL 1/> REGION CHIROPRAC 16795 [place] CANTRELL TIC 6 AMA MANIPLTV CHIROPRAC TX TIC CENTE EXTRASPIN AL 1/> REGION CHIROPRAC 31948 [place] TIC 6 AMA MANIPULAT CHIROPRAC DOMINICK TX TIC CENTE SPINAL 3-4 REGIONS MANUAL 65412 [place] CANT[place] THERAPY 6 AMA TQS 1/> CHIROPRAC REGIONS TIC CENTE EACH 15 MINUTES APPL 32964 [place] C[place] MODALITY 6 AMA 1/> AREAS CHIROPRAC TIC CENTE ULTRASOUN D EA 15 MIN APPL 81905 [place] C[place] MODALITY 6 AMA 1/> AREAS CHIROPRAC ELEC TIC CENTE STIMJ UNATTENDE D APPL 95760 [place] MODALITY 6 AMA 1/> AREAS CHIROPRAC TRACTION TIC CENTE MECHANICA L APPL 73630 [place] CANTRE[place] MODALITY 6 AMA 1/> AREAS CHIROPRAC TRACTION TIC CENTE MECHANICA L APPL 83435 [place] CANT[place] MODALITY 6 AMA 1/> AREAS CHIROPRAC TIC CENTE ULTRASOUN D EA 15 MIN MANUAL 69476 [place] CANT[place] THERAPY 6 AMA TQS 1/> CHIROPRAC REGIONS TIC CENTE EACH 15 MINUTES APPL 96323 [place] C[place] MODALITY 6 AMA 1/> AREAS CHIROPRAC ELEC TIC CENTE STIMJ UNATTENDE D CHIROPRAC 15573 [place] CANT[place] TIC 6 AMA MANIPULAT CHIROPRAC DOMINICK TX TIC CENTE SPINAL 3-4 REGIONS CHIROPRAC 08628 [place] CANT[place] TIC 6 AMA MANIPLTV CHIROPRAC TX TIC CENTE EXTRASPIN AL 1/> REGION CHIROPRAC 60230 [place] CANT[place] TIC 6 AMA MANIPLTV CHIROPRAC TX TIC CENTE EXTRASPIN AL 1/> REGION CHIROPRAC 97450 [place] C[place] TIC 6 AMA MANIPULAT CHIROPRAC DOMINICK TX TIC CENTE SPINAL 3-4 REGIONS APPL 43139 [place] CANT[place] MODALITY 6 AMA 1/> AREAS CHIROPRAC ELEC TIC CENTE STIMJ UNATTENDE D MANUAL 61825 [place] CANT[place] THERAPY 6 AMA TQS 1/> CHIROPRAC REGIONS TIC CENTE EACH 15 MINUTES APPL 10819 [place] MODALITY 6 AMA 1/> AREAS CHIROPRAC TIC CENTE ULTRASOUN D EA 15 MIN APPL 15259 [place] C[place] MODALITY 6 AMA 1/> AREAS CHIROPRAC TRACTION TIC CENTE MECHANICA L APPL 50365 [place] CANT[place] MODALITY 6 AMA 1/> AREAS CHIROPRAC TRACTION TIC CENTE MECHANICA L APPL 74167 [place] C[place] MODALITY 6 AMA 1/> AREAS CHIROPRAC TIC CENTE ULTRASOUN D EA 15 MIN MANUAL 93749 [place] C[place] THERAPY 6 AMA TQS 1/> CHIROPRAC REGIONS TIC CENTE EACH 15 MINUTES APPL 73716 [place] MODALITY 6 AMA 1/> AREAS CHIROPRAC ELEC TIC CENTE STIMJ UNATTENDE D CHIROPRAC 74421 [place] CANT[place] TIC 6 AMA MANIPULAT CHIROPRAC DOMINICK TX TIC CENTE SPINAL 3-4 REGIONS CHIROPRAC 52774 [place] CANT[place] TIC 6 AMA MANIPLTV CHIROPRAC TX TIC CENTE EXTRASPIN AL 1/> REGION CHIROPRAC 11213 [place] CANT[place] TIC 6 AMA MANIPLTV CHIROPRAC TX TIC CENTE EXTRASPIN AL 1/> REGION CHIROPRAC 76006 [place] CANT[place] TIC 6 AMA MANIPULAT CHIROPRAC DOMINICK TX TIC CENTE SPINAL 3-4 REGIONS APPL 23998 [place] CANT[place] MODALITY 6 AMA 1/> AREAS CHIROPRAC ELEC TIC CENTE STIMJ UNATTENDE D MANUAL 85820 [place] CANT[place] THERAPY 6 AMA TQS 1/> CHIROPRAC REGIONS TIC CENTE EACH 15 MINUTES APPL 67519 [place] CANT[place] MODALITY 6 AMA 1/> AREAS CHIROPRAC TIC CENTE ULTRASOUN D EA 15 MIN APPL 48675 [place] CANT[place] MODALITY 6 AMA 1/> AREAS CHIROPRAC TRACTION TIC CENTE MECHANICA L RADEX 68109 [place] C[place] SPINE 6 AMA LUMBOSACR CHIROPRAC AL 2/3 TIC CENTE VIEWS APPL 18193 [place] CANT[place] MODALITY 6 AMA 1/> AREAS CHIROPRAC TRACTION TIC CENTE MECHANICA L APPL 91953 [place] CANT[place] MODALITY 6 AMA 1/> AREAS CHIROPRAC TIC CENTE ULTRASOUN D EA 15 MIN MANUAL 11064 [place] CANT[place] THERAPY 6 AMA TQS 1/> CHIROPRAC REGIONS TIC CENTE EACH 15 MINUTES APPL 06260 [place] CANT[place] MODALITY 6 AMA 1/> AREAS CHIROPRAC ELEC TIC CENTE STIMJ UNATTENDE D CHIROPRAC 35258 [place] CANT[place] TIC 6 AMA MANIPULAT CHIROPRAC DOMINICK TX TIC CENTE SPINAL 3-4 REGIONS CHIROPRAC 48557 [place] CANT[place] TIC 6 AMA MANIPLTV CHIROPRAC TX TIC CENTE EXTRASPIN AL 1/> REGION CHIROPRAC 85320 [place] CANT[place] TIC 6 AMA MANIPLTV CHIROPRAC TX TIC CENTE EXTRASPIN AL 1/> REGION MANUAL 26302 [place] CANT[place] THERAPY 6 AMA TQS 1/> CHIROPRAC REGIONS TIC CENTE EACH 15 MINUTES CHIROPRAC 78667 [place] CANT[place] TIC 6 AMA MANIPULAT CHIROPRAC DOMINICK TX TIC CENTE SPINAL 3-4 REGIONS APPL 41441 [place] CANT[place] MODALITY 6 AMA 1/> AREAS CHIROPRAC ELEC TIC CENTE STIMJ UNATTENDE D APPL 68036 [place] CANT[place] MODALITY 6 AMA 1/> AREAS CHIROPRAC TIC CENTE ULTRASOUN D EA 15 MIN APPL 41550 [place] CANT[place] MODALITY 6 AMA 1/> AREAS CHIROPRAC TRACTION TIC CENTE MECHANICA L APPL 38865 [place] CANT[place] MODALITY 6 AMA 1/> AREAS CHIROPRAC TRACTION TIC CENTE MECHANICA L APPL 79174 [place] CANT[place] MODALITY 6 AMA 1/> AREAS CHIROPRAC ELEC TIC CENTE STIMJ UNATTENDE D CHIROPRAC 52538 [place] CANT[place] TIC 6 AMA MANIPULAT CHIROPRAC DOMINICK TX TIC CENTE SPINAL 3-4 REGIONS MANUAL 98010 [place] CANT[place] THERAPY 6 AMA TQS 1/> CHIROPRAC REGIONS TIC CENTE EACH 15 MINUTES CHIROPRAC 51433 [place] CANT[place] TIC 6 AMA MANIPLTV CHIROPRAC TX TIC CENTE EXTRASPIN AL 1/> REGION CHIROPRAC 85751 [place] CANT[place] TIC 6 AMA MANIPLTV CHIROPRAC TX TIC CENTE EXTRASPIN AL 1/> REGION CHIROPRAC 05740 [place] CANT[place] TIC 6 AMA MANIPULAT CHIROPRAC DOMINICK TX TIC CENTE SPINAL 3-4 REGIONS MANUAL 70125 [place] CANT[place] THERAPY 6 AMA TQS 1/> CHIROPRAC REGIONS TIC CENTE EACH 15 MINUTES APPL 42806 [place] CANT[place] MODALITY 6 AMA 1/> AREAS CHIROPRAC TRACTION TIC CENTE MECHANICA L APPL 07955 [place] MODALITY 6 1/> AREAS CHIROPRAC CHIROPRAC TRACTION TIC CENTE TIC CENTE MECHANICA L THERAPEUT 41344 [place] HUFFELL IC PX 1/> 6 AMA AREAS CHIROPRAC EACH 15 TIC CENTE MIN EXERCISES APPL 50043 [place] CANT[place] MODALITY 6 AMA 1/> AREAS CHIROPRAC TIC CENTE ULTRASOUN D EA 15 MIN MANUAL 40801 [place] CANT[place] THERAPY 6 AMA TQS 1/> CHIROPRAC REGIONS TIC CENTE EACH 15 MINUTES APPL 18668 [place] CANT[place] MODALITY 6 AMA 1/> AREAS CHIROPRAC ELEC TIC CENTE STIMJ UNATTENDE D CHIROPRAC 94277 [place] CANT[place] TIC 6 AMA MANIPULAT CHIROPRAC DOMINICK TX TIC CENTE SPINAL 3-4 REGIONS CHIROPRAC 42364 [place] CANT[place] TIC 6 AMA MANIPLTV CHIROPRAC TX TIC CENTE EXTRASPIN AL 1/> REGION CHIROPRAC 14265 [place] CANT[place] TIC 6 AMA MANIPLTV CHIROPRAC TX TIC CENTE EXTRASPIN AL 1/> REGION CHIROPRAC 07248 [place] CANT[place] TIC 6 AMA MANIPULAT CHIROPRAC DOMINICK TX TIC CENTE SPINAL 3-4 REGIONS APPL 34069 [place] MODALITY 6 1/> AREAS CHIROPRAC CHIROPRAC ELEC TIC CENTE TIC CENTE STIMJ UNATTENDE D MANUAL 77435 [place] CANT[place] THERAPY 6 AMA TQS 1/> CHIROPRAC REGIONS TIC CENTE EACH 15 MINUTES APPL 49942 [place] CANT[place] MODALITY 6 AMA 1/> AREAS CHIROPRAC TIC CENTE ULTRASOUN D EA 15 MIN APPL 47200 [place] CANT[place] MODALITY 6 AMA 1/> AREAS CHIROPRAC TRACTION TIC CENTE MECHANICA L APPL 52031 [place] MODALITY 6 1/> AREAS CHIROPRAC CHIROPRAC TRACTION TIC CENTE TIC CENTE MECHANICA L APPL 32419 [place] CANT[place] MODALITY 6 AMA 1/> AREAS CHIROPRAC TIC CENTE ULTRASOUN D EA 15 MIN MANUAL 09310 [place] CANT[place] THERAPY 6 AMA TQS 1/> CHIROPRAC REGIONS TIC CENTE EACH 15 MINUTES APPL 81553 [place] CANT[place] MODALITY 6 AMA 1/> AREAS CHIROPRAC ELEC TIC CENTE STIMJ UNATTENDE D CHIROPRAC 39375 [place] CANT[place] TIC 6 AMA MANIPULAT CHIROPRAC DOMINICK TX TIC CENTE SPINAL 3-4 REGIONS CHIROPRAC 00903 [place] CANT[place] TIC 6 AMA MANIPLTV CHIROPRAC TX TIC CENTE EXTRASPIN AL 1/> REGION CHIROPRAC 28436 [place] RENEE PRA TIC 6 MANIPLTV CHIROPRAC TX TIC CENTE EXTRASPIN AL 1/> REGION CHIROPRAC 95884 [place] CANT[place] TIC 6 AMA MANIPULAT CHIROPRAC DOMINICK TX TIC CENTE SPINAL 3-4 REGIONS MANUAL 60114 [place] CANTRELL THERAPY 6 AMA TQS 1/> CHIROPRAC REGIONS TIC CENTE EACH 15 MINUTES APPL 79890 [place] MODALITY 6 1/> AREAS CHIROPRAC CHIROPRAC TIC CENTE TIC CENTE ULTRASOUN D EA 15 MIN APPL 43738 [place] CANT[place]LL MODALITY 6 AMA 1/> AREAS CHIROPRAC ELEC TIC CENTE STIMJ UNATTENDE D APPL 26748 [place] CANT[place] MODALITY 6 AMA 1/> AREAS CHIROPRAC TRACTION TIC CENTE MECHANICA L APPL 54235 [place] MODALITY 6 1/> AREAS CHIROPRAC CHIROPRAC TRACTION TIC CENTE TIC CENTE MECHANICA L APPL 11805 [place] CANT[place] MODALITY 6 AMA 1/> AREAS CHIROPRAC ELEC TIC CENTE STIMJ UNATTENDE D MANUAL 12054 [place] CANT[place] THERAPY 6 AMA TQS 1/> CHIROPRAC REGIONS TIC CENTE EACH 15 MINUTES CHIROPRAC 37952 [place] CANT[place] TIC 6 AMA MANIPULAT CHIROPRAC DOMINICK TX TIC CENTE SPINAL 3-4 REGIONS CHIROPRAC 42127 [place] CANT[place] TIC 6 AMA MANIPLTV CHIROPRAC TX TIC CENTE EXTRASPIN AL 1/> REGION CHIROPRAC 62989 [place] CANT[place] TIC 6 AMA MANIPLTV CHIROPRAC TX TIC CENTE EXTRASPIN AL 1/> REGION CHIROPRAC 61152 [place] CANT[place] TIC 6 AMA MANIPULAT CHIROPRAC DOMINICK TX TIC CENTE SPINAL 3-4 REGIONS MANUAL 32975 [place] CANT[place] THERAPY 6 AMA TQS 1/> CHIROPRAC REGIONS TIC CENTE EACH 15 MINUTES APPL 34919 [place] CANT[place]LL MODALITY 6 AMA 1/> AREAS CHIROPRAC ELEC TIC CENTE STIMJ UNATTENDE D APPL 74143 [place] MODALITY 6 1/> AREAS CHIROPRAC CHIROPRAC TRACTION TIC CENTE TIC CENTE MECHANICA L APPL 07075 [place] CANT[place]LL MODALITY 6 AMA 1/> AREAS CHIROPRAC TRACTION TIC CENTE MECHANICA L APPL 07721 [place] CANT[place] MODALITY 6 AMA 1/> AREAS CHIROPRAC ELEC TIC CENTE STIMJ UNATTENDE D MANUAL 99447 [place] CANTRE[place] THERAPY 6 AMA TQS 1/> CHIROPRAC REGIONS TIC CENTE EACH 15 MINUTES CHIROPRAC 95052 [place] CANT[place] TIC 6 AMA MANIPULAT CHIROPRAC DOMINICK TX TIC CENTE SPINAL 3-4 REGIONS CHIROPRAC 34141 [place] CANT[place] TIC 6 AMA MANIPLTV CHIROPRAC TX TIC CENTE EXTRASPIN AL 1/> REGION CHIROPRAC 06645 [place] CANT[place] TIC 6 AMA MANIPLTV CHIROPRAC TX TIC CENTE EXTRASPIN AL 1/> REGION CHIROPRAC 30254 [place] CANT[place] TIC 6 AMA MANIPULAT CHIROPRAC DOMINICK TX TIC CENTE SPINAL 3-4 REGIONS MANUAL 17368 [place] CANTRE[place] THERAPY 6 AMA TQS 1/> CHIROPRAC REGIONS TIC CENTE EACH 15 MINUTES APPL 41171 [place] CANT[place] MODALITY 6 AMA 1/> AREAS CHIROPRAC ELEC TIC CENTE STIMJ UNATTENDE D APPL 68070 [place] CANT[place] MODALITY 6 AMA 1/> AREAS [place]IROPR[place] [address] [place] CANTRELL 1/> AREAS 6 AMA EACH 15 CHIROPRAC [place] [address] [place] CANTRELL 1/> AREAS 6 AMA EACH 15 CHIROPRAC MIN TIC CENTE NEUROMUSC REEDUCA APPL 21863 [place] CANT[place]LL MODALITY 6 AMA 1/> AREAS CHIROPRAC TRACTION TIC CENTE MECHANICA L APPL 02337 [place] CANT[place]LL MODALITY 6 AMA 1/> AREAS CHIROPRAC ELEC TIC CENTE STIMJ UNATTENDE D MANUAL 89093 [place] CANTRELL THERAPY 6 AMA TQS 1/> CHIROPRAC REGIONS TIC CENTE EACH 15 MINUTES CHIROPRAC 15575 [place] CANT[place]LL TIC 6 AMA MANIPULAT CHIROPRAC DOMINICK TX TIC CENTE SPINAL 3-4 REGIONS CHIROPRAC 90644 [place] CANTRELL TIC 6 AMA MANIPLTV CHIROPRAC TX TIC CENTE EXTRASPIN AL 1/> REGION IAADIADOO 07453 EPISCOPAL SHANIKA [facility] CC[facility] GROUP GROUP A COMPREHEN 36680 [facility]IO ALVAREZ SIVE 6 [facility] METABOLIC INC INC PANEL BLOOD 24379 ANTONIO ALVAREZ COUNT 6 [facility] COMPLETE INC INC AUTO&AUTO DIFRNTL WBC COLLECTIO 88534 [facility] YOLANDE N VENOUS 6 PHYSICIAN STONE BLOOD S GROUP PA-C CORBIN VENIPUNCT URE C-REACTIV 16174 ANTONIO ALVAREZ E PROTEIN 6 [facility] INC INC DNA 64332 ANTONIO ALVAREZ ANTIBODY 6 [facility] [place] [address] ANTONIO ALVAREZ THYROXINE 6 [facility] TOTAL INC INC ANTINUCLE 59475 ANTONIO ALVAREZ AR 6 [facility] [place] [address] ANTONIO ALVAREZ THYROID 6 [facility] STIMULATI INC INC NG HORMONE TSH SEDIMENTA 32547 ANTONIO ALVAREZ TIDIAZ RATE 6 [facility] RBC INC INC NON-AUTOM ATED 25 54104 ANTONIO ALVAREZ HYDROXY 6 [facility] INCLUDES INC INC FRACTIONS IF PERFORMED CREATINE 54058 ANTONIO ANTONIO KINASE 6 [facility] TOTAL INC INC OPHTH 28822 [facility] 6 GRE GRE XM&EVAL COMPRE NEW PT 1/> VST THERAPEUT 22491 [facility] JEFFRY IC 6 PHYSICIAN HUGH PROPHYLAC S GROUP TIC/DX INJECTION SUBQ/IM INJECTION [id number] [facility] 6 PHYSICIAN HUGH METHYLPRE S GROUP DNISOLONE ACETATE 80 MG INJECTION J0696 [facility] JEFFRY 6 PHYSICIAN HUGH CEFTRIAXO S GROUP NE SODIUM PER 250 MG INJECTION J0696 [facility] JEFFRY 6 PHYSICIAN HUGH CEFTRIAXO S GROUP NE SODIUM PER 250 MG INJECTION J1040 [facility] JEFFRY 6 PHYSICIAN HUGH METHYLPRE S GROUP DNISOLONE ACETATE 80 MG THERAPEUT 90398 [facility] IC 6 PHYSICIAN HUGH PROPHYLAC S GROUP TIC/DX INJECTION SUBQ/IM THERAPEUT [address] IC 6 [facility] TIC/DX INJECTION SUBQ/IM INJECTION J[address] 6 [facility] SONE SODIUM PHOSPHATE 1 MG INJECTION J0561 [facility] TER 6 [facility] N G BENZATHIN E 290353 UNITS TOTAL 07235 [facility] SCHULSTAD ABDOMINAL 5 PHYSICIAN CAM S GROUP HYSTERECT W/[place] [address] [facility], PICKLESIM SURG 5 [facility] PATHOLOGY GROSS&HUGH ROSCOPIC EXAM ANESTHESI 26634 [facility] SP[facility]OW JADEN A 5 ANESTH INTRAPERI OF THE TONEAL BLUE LOWER ABD W/LAPS NOS SMR PRIM 63201 ROSIBEL ROMAN SRC WET 5 JESSIE VEGAS [facility] NFCT AGT CULTURE 57250 ANTONIO ALVAREZ BACTERIAL 5 [facility] INC INC QUANTTATI VE COLONY COUNT URINE COLLECTIO 93110 ANTONIO ALVAREZ N VENOUS 5 [facility] BLOOD INC INC VENIPUNCT URE URNLS DIP 16229 ANTONIO ALVAREZ 5 [facility] STICK/TAB INC INC LET REAGENT AUTO MICROSCOP Y SUSCEPTIB 26556 ANTONIO ALVAREZ LTY STDY 5 [facility] ANTIMICRB INC INC IAL MICRO/AGA R DILUTJ GONADOTRO 82871 ANTONIO ALVAREZ PIN 5 [facility] CHORIONIC INC INC QUALITATI VE BLOOD 82254 ANTONIO ALVAREZ COUNT 5 [facility] COMPLETE INC INC AUTO&[place] [address] ANTONIO ALVAREZ TRANSVAGI 5 [facility] NAL INC INC URINLS 71908 ROSIBEL ROMAN DIP 5 JESSIE BOTELLO SHASTA STICK/TAB LET REAGNT NON-AUTO MICRSCPY CHIROPRAC 04280 EMMIE SALEEM TIC 5 GAR MANIPULAT CHIROPRAC DOMINICK TX TIC CENTE SPINAL 1-2 REGIONS APPL 98014 EMMIE SALEEM MODALITY 5 GAR 1/> AREAS CHIROPRAC [place] [address] EMMIE SALEEM 1/> AREAS 5 GAR EACH 15 CHIROPRAC MIN TIC CENTE NEUROMUSC REEDUCA CHIROPRAC 56315 EMMIE SALEEM TIC 5 GAR MANIPLTV CHIROPRAC TX TIC CENTE EXTRASPIN AL 1/> REGION CHIROPRAC 89620 EMMIE SALEEM TIC 5 GAR MANIPLTV CHIROPRAC TX TIC CENTE EXTRASPIN AL 1/> REGION CHIROPRAC 10753 EMMIE SALEEM TIC 5 GAR MANIPULAT CHIROPRAC DOMINICK TX TIC CENTE SPINAL 1-[place] [address] EMMIE SALEEM 1/> AREAS 5 GAR EACH 15 CHIROPRAC MIN [place] [address] EMMIE SALEEM 1/> AREAS 5 GAR EACH 15 CHIROPRAC [place] [address] EMMIE SALEEM 1/> AREAS 5 GAR EACH 15 CHIROPRAC MINUTES TIC CENTE MASSAGE CHIROPRAC 98847 EMMIE SALEEM TIC 5 GAR MANIPULAT CHIROPRAC DOMINICK TX TIC CENTE SPINAL 1-[address] [place] [address] EMMIE SALEEM 1/> AREAS 5 GAR EACH 15 CHIROPRAC MIN TIC CENTE NEUROMUSC REEDUCA URNLS DIP 15065 ANTONIO BELTRAN 5 [facility] LET RGNT NON-AUTO W/O MICRSCP COMPREHEN 79243 ANTONIO GIRARD 5 [facility] METABOLIC INC INC PANEL URNLS DIP 15693 ANTONIO ALVAREZ 5 [facility] STICK/TAB INC INC LET REAGENT AUTO MICROSCOP Y BLOOD 78339 ANTONIO ALVAREZ COUNT 5 [facility] COMPLETE INC INC AUTO&AUTO DIFRNTL WBC COLLECTIO 53335 ANTONIO Cevallos VENOUS 5 [facility] [place] [address] [facility] ABDOMEN & 5 MEDICAL ARELY PELVIS IMAGING W/O ASS CONTRAST MATERIAL BLOOD 82091 ANTONIO ALVAREZ COUNT 5 [facility] COMPLETE INC INC AUTO&AUTO DIFRNTL WBC COMPREHEN 15124 ANTONIO ALVAREZ SIVE 5 [facility] METABOLIC INC INC PANEL URNLS DIP 09995 ANTONIO ALVAREZ 5 [facility] STICK/TAB INC INC LET REAGENT AUTO MICROSCOP Y COMPREHEN 05968 ANTONIO ALVAREZ SIVE 5 [facility] [place] [address] ANTONIO ALVAREZ INFUSION 5 [facility] THERAPY/P INC INC ROPHYLAXI S /DX 1ST TO 1 HR BLOOD 35824 ANTONIO ALVAREZ COUNT 5 [facility] COMPLETE INC INC AUTO&AUTO DIFRNTL WBC IMMUNOASS 95957 ANTONIO ALVAREZ AY NFCT 5 [facility] AGT ANTB INC INC QUAL/SEMI ANGIE 1 STEP UNCLASSIF J3490 ANTONIO ALVAREZ IED DRUGS 5 [facility] INC INC SMR PRIM 52597 ROSIBEL ROMAN SRC WET 5 [place] [facility] AGT HGB 87294 ROSIBEL ROMAN QUANTITAT 5 JESSIE VEGAS DOMINICK TRANSCUTA NEOUS ANESTHESI 16748 [facility] VAGINAL 5 ANESTH LUCERO OF THE PROCEDURE BL[place] W/[place] [address] ANTONIO ALVAREZ INFUSION 5 [facility] THERAPY INC INC PROPHYLAX IS/DX EA HOUR BLOOD 50209 ANTONIO ALVAREZ COUNT 5 [facility] [address] [facility], [facility], SURG 5 [facility] PATHOLOGY GROSS&HUGH ROSCOPIC EXAM UNCLASSIF J3490 ANTONIO ALVAREZ IED DRUGS 5 [facility] INC INC COLLECTIO 24068 ANTONIO ALVAREZ N VENOUS 5 [facility] BLOOD INC INC VENIPUNCT URE DILATION 30592 ANTONIO ALVAREZ & 5 [facility] CURETTAGE INC INC DX&/THER NONOBSTET JACQUI BLOOD 64688 ANTONIO ALVAREZ COUNT 5 [facility] HEMOGLOBI INC INC N INJECTION J2405 ANTONIO ALVAREZ 5 [facility] ONDANSETR INC INC ON HCL PER 1 MG URINE 49655 ANTONIO ALVAREZ 5 [facility] TEST INC INC VISUAL COLOR CMPRSN METHS BLOOD 85688 ANTONIO ALVAREZ COUNT 5 [facility] COMPLETE INC INC AUTO&AUTO DIFRNTL WBC URNLS DIP 54056 ANTONIO ALVAREZ 5 [facility] STICK/TAB INC INC LET REAGENT AUTO MICROSCOP Y COLLECTIO 57744 ANTONIO ALVAREZ N VENOUS 5 [facility] BLOOD INC INC VENIPUNCT URE CULTURE 58369 ANTONIO ALVAREZ BACTERIAL 5 [facility] INC INC QUANTTATI VE COLONY COUNT URINE COLLECTIO 67951 ANTONIO ANTONIO N VENOUS 5 [facility] BLOOD INC INC VENIPUNCT URE BLOOD 73228 ANTONIO ALVAREZ COUNT 5 [facility] COMPLETE INC INC AUTO&[place] [address] [place] [facility] TRANSVAGI 5 MEDICAL HARINDER NAL IMAGING ASS [facility]- [address] ANTONIO ANTONIO AIDED 5 [facility] DETECTION INC INC SCREENING MAMMOGRAP HY SCREENING [id number] ANTONIO ALVAREZ 5 [facility] MAMMOGRAP INC INC HY MICHELE INCL CAD WHEN PERFORMD Encounters Encounter Start End Date Code Location Performer Type Date OFFICE 16802 [facility] STONE OUTPATIEN 7 7 PHYSICIAN T VISIT S GROUP 25 MINUTES OFFICE 00519 [facility] STONE OUTPATIEN 7 7 PHYSICIAN T VISIT 5 S GROUP MINUTES [facility] - 7 7 [facility] OUTPATIEN INC T OFFICE 61691 [facility] STONE OUTPATIEN 7 7 PHYSICIAN T VISIT S GROUP 15 MINUTES EMERGENCY 12203 ANTONIO DEPT 7 7 [facility] VISIT INC HIGH SEVERITY& THREAT FUN [facility]OSP[facility] AN[facility]IO - 7 7 [facility] OUTPATIEN INC T OFFICE 49928 [facility] OUTPATIEN 7 7 [facility] T VISIT 5 INC MINUTES [facility]OSPITAL AN[facility]IO - 7 7 [facility] OUTPATIEN INC T OFFICE 58772 [facility] [place] OUTPATIEN 7 7 PHYSICIAN T VISIT GROUP 15 MINUTES HOSPITAL [facility]IO - 7 7 [facility] OUTPATIEN INC T OFFICE 52365 [facility] [place] OUTPATIEN 7 7 PHYSICIAN T VISIT GROUP 15 MINUTES [facility] - 7 7 [facility] OUT[facility]IEN [facility] T EMERGENCY 48240 [facility] 7 7 [facility] DEPARTMEN INC T VISIT HIGH/URGE NT SEVERITY EMERGENCY 32189 ALYSIA DEY DEPT 7 7 PHYSICIAN VISIT S, [facility] HIGH SEVERITY& THREAT [facility] - 7 7 [facility] T OFFICE 40054 [facility] [place] OUTPATIEN 7 7 PHYSICIAN T VISIT S GROUP 15 MINUTES OFFICE 11039 [facility] [place] OUTPATIEN 7 7 PHYSICIAN T VISIT S GROUP 25 MINUTES OFFICE 81305 [facility] [place] OUTPATIEN 7 7 PHYSICIAN T VISIT S GROUP 15 MINUTES [facility] - 7 7 [facility] T OFFICE 97555 [facility] OUT[facility]IEN 7 7 [facility] T VISIT 5 INC MINUTES OFFICE 63858 [facility] [place] OUTPATIEN 7 7 PHYSICIAN T VISIT S GROUP 25 MINUTES OFFICE 06975 [facility] [place] OUTPATIEN 7 7 PHYSICIAN T VISIT S GROUP 25 MINUTES OFFICE 07327 [facility] [place] OUTPATIEN 7 7 PHYSICIAN T VISIT S GROUP 25 MINUTES OFFICE 34874 H OUTPATIEN 6 6 PHYSICIAN T VISIT S GROUP 15 MINUTES OFFICE 74358 [facility] [place] OUTPATIEN 6 6 PHYSICIAN T VISIT S GROUP 15 MINUTES OFFICE 01454 [facility] [place] OUTPATIEN 6 6 PHYSICIAN T VISIT S GROUP 25 MINUTES [facility]OSP[facility] - 6 6 [facility] OUT[facility] INC T PERIODIC 87779 [facility] HARPEL PREVENTIV 6 6 PHYSICIAN SHASTA E MED EST S GROUP PATIENT 40-64YRS OFFICE 94171 [facility] [place] OUTPATIEN 6 6 PHYSICIAN EUG T VISIT S GROUP 15 MINUTES [facility] - 6 6 [facility] OUTPATIEN INC T OFFICE 84785 [facility] [place] OUTPATIEN 6 6 PHYSICIAN T NEW 30 S GROUP MINUTES OFFICE 90355 [facility] [place] OUTPATIEN 6 6 PHYSICIAN EUG T VISIT S GROUP 15 MINUTES [facility] - 6 6 [facility] OUTPATIEN INC T OFFICE 07474 [facility] [place] OUTPATIEN 6 6 PHYSICIAN T VISIT GROUP 25 MINUTES OFFICE 99431 TYLERTYSHAWN HUFFELL OUTPATIEN 6 6 AMA T VISIT CHIROPRAC 15 TIC CENTE MINUTES OFFICE 46178 [facility] GAGE OUTPATIEN 6 6 PHYSICIAN T VISIT GROUP 15 MINUTES OFFICE 21547 JOSÉTHITYSHAWN CANTRELL OUTPATIEN 6 6 AMA T VISIT CHIROPRAC 15 TIC CENTE MINUTES EMERGENCY 18212 [facility] 6 6 [facility] DEPARTMEN INC T VISIT LOW/MODER SEVERITY EMERGENCY 42818 [facility] 6 6 PHYSICIAN DEPARTMEN S, PLLC T VISIT MODERATE SEVERITY [facility] - 6 6 [facility] OUTPATIEN INC T OFFICE 01773 [facility] GAGE OUTPATIEN 6 6 [facility] T VISIT HOSPITAL 25 MINUTES OFFICE 02796 [facility] SHANIKA OUTPATIEN 6 6 [facility]ALTH [facility] T VISIT MEDICAL 15 GROUP MINUTES OFFICE 65366 [facility] YOLANDE OUTPATIEN 6 6 PHYSICIAN STONE T VISIT S GROUP PA-C CORBIN 25 MINUTES [facility]OSP[facility] - 6 6 [facility] OUT[facility]IEN INC T OFFICE 73130 ROSIBEL ROMAN OUTPATIEN 6 6 JESSIE BOTELLO SHASTA T VISIT 15 MINUTES OFFICE 85695 [facility] JEFFRY OUTPATIEN 6 6 PHYSICIAN HUGH T VISIT S GROUP 15 MINUTES OFFICE 12078 [facility] JEFFRY OUTPATIEN 6 6 PHYSICIAN HUGH T VISIT S GROUP 15 MINUTES OFFICE 51096 [facility] EASLEY OUTPATIEN 6 6 [facility] T VISIT HOSPITAL 15 MINUTES [facility]OSP[facility] - 5 6 [facility] INC OFF[facility] 67347 ROSIBEL ROMAN OUTPATIEN 5 5 JESSIE VEGAS T VISIT 15 MINUTES [facility] - 5 5 [facility] T [facility] - 5 5 [facility] OUTPATIEN INC T OFFICE 31744 ROSIBEL ROMAN OUTPATIEN 5 5 JESSIE VEGAS T VISIT 25 MINUTES OFFICE 94268 EMMIE SALEEM OUTPATIEN 5 5 [facility] T VISIT CHIROPRAC 10 TIC CENTE MINUTES OFFICE 08845 [facility] BELTRAN OUTPATIEN 5 5 [facility] VIS[facility] HOSP[facility] 15 MINUTES [facility] - 5 5 [facility] OUTPATIEN INC T EMERGENCY 50032 ALYSIA TERAN 5 5 PHYSICIAN [facility] S, [facility] T VISIT HIGH/URGE NT SEVERITY EMERGENCY 60183 [facility] 5 5 [facility] DE[facility] INC T VISIT MODERATE SEVERITY [facility] - 5 5 [facility] OUTPATIEN INC T EMERGENCY 18328 [facility] Apod[place] 5 5 [facility] T VISIT P MODERATE SEVERITY [facility] - 5 5 [facility] T EMERGENCY 60856 [facility] 5 5 [facility] INC T VISIT HIGH/URGE NT SEVERITY OFFICE 06219 ROSIB[facility] ROMAN OUTPATIEN 5 5 JESSIE VEGAS T VISIT 15 MINUTES [facility] - 5 5 [facility] - 5 5 [facility] T OFFICE 16480 ROSIBEL ROMAN OUTPATIEN 5 5 JESSIE VEGAS T VISIT 15 MINUTES OFFICE 56972 ROSIBEL ROSALESPATIDWIGHT 5 5 [facility] VEGAS T [facility]ES [facility] [id number] ROSIBEL ROSALESPATIDWIGHT 5 5 JESSIE VEGAS T VISIT 15 [facility]UTES [facility] 5 [facility]
--- OUTSIDE RECORDS SUMMARY | 2017-03-15 22:13 | External Medical Summary Rpt | CCD ---
Demographics Preferred Language Maldivian Marital Status Unknown Taoism Affiliation Unknown Race Unknown Ethnic Group Unknown Author Author , OMAIRA CASTANO Address Unknown Phone Immunization No patient found.
--- OUTSIDE RECORDS SUMMARY | 2017-03-15 22:13 | External Medical Summary Rpt | CCD ---
Demographics Preferred Language Samoan Marital Status Unknown Congregational Affiliation Unknown Race Unknown Ethnic Group Unknown Author Author , OMAIRA CASTANO Address Unknown Phone Immunization No patient found.
--- OUTSIDE RECORDS SUMMARY | 2017-03-15 22:14 | External Medical Summary Rpt ---
Author Author OMAIRA Webb, OMAIRA [employer] Address Unknown Phone Unavailable Results Comprehensive metabolic 2000 panel in Serum or Plasma Observa Value Referen Units Interpr Notes Date tion ce etation Range Albumin/G 1.1 - 1.8 No Normal No Jan 24 lobulin informati informati 2016 7:08 [Mass on in on in AM ratio] in source source Serum or data data Plasma Albumin 3.4 - 5.0 gm/dL Normal No Jan 24 [Mass/vol informati 2016 7:08 ume] in on in AM Serum or source Plasma data Alkaline 46 - 116 U/L Normal No Jan 24 phosphata informati 2016 7:08 se on in AM [Enzymati source c data activity/ volume] in Serum or Plasma Bilirubin 0.2 - 1.0 mg/dL Normal No Jan 24 .total informati 2016 7:08 [Mass/vol on in AM ume] in source Serum or data Plasma Urea 7 - 18 mg/dL Normal No Jan 24 nitrogen informati 2016 7:08 [Mass/vol on in AM ume] in source Serum or data Plasma Calcium 8.5 - mg/dL Normal No Jan 24 [Mass/vol 10.1 informati 2016 7:08 ume] in on in AM Serum or source Plasma data Chloride 98 - 107 mmoL/L Normal No Jan 24 [Moles/vo informati 2017 7:08 lume] in on in AM Serum or source Plasma data Carbon 21.0 - mmoL/L Normal No Jan 24 dioxide, 32.0 informati 2017 7:08 total on in AM [Moles/vo source lume] in data Serum or Plasma Creatinin 0.55 - mg/dL Normal No Jan 24 e 1.02 informati 2017 7:08 [Mass/vol on in AM ume] in source Serum or data Plasma Estimated 59- ML/MIN No REFERENCE Jan 24 informati RANGE: 2017 7:08 glomerula on in >60 AM r source ML/MIN/1. filtratio data 73 SQUARE n rate METERSIf (GF this patient is -A merican, then multiply theresult by 1.210. Globulin 1.3 - 3.2 gm/dL High No Jan 24 [Mass/vol informati 2016 7:08 ume] in on in AM Serum source data Glucose 74 - 106 mg/dL High No Jan 24 [Mass/vol informati 2016 7:08 ume] in on in AM Serum or source Plasma data Potassium 3.5 - 5.1 mmoL/L Normal No Jan 24 informati 2016 7:08 [Moles/vo on in AM lume] in source Serum or data Plasma Sodium 136 - 145 mmoL/L Normal No Jan 24 [Moles/vo informati 2016 7:08 lume] in on in AM Serum or source Plasma data Aspartate 15 - 37 U/L High No Jan 24 informati 2016 7:08 aminotran on in AM sferase source [Enzymati data c activity/ volume] in Serum or Plasma Alanine 12 - 78 U/L High No Jan 24 aminotran informati 2016 7:08 sferase on in AM [Enzymati source c data activity/ volume] in Serum or Plasma Protein 6.4 - 8.2 gm/dL Normal No Jan 24 [Mass/vol informati 2016 7:08 ume] in on in AM Serum or source Plasma data Lipid 1996 panel in Serum or Plasma Observa Value Referen Units Interpr Notes Date tion ce etation Range Cholester < 200 mg/dL No No Jan 24 ol informati informati 2016 7:08 [Moles/vo on in on in AM lume] in source source Unspecifi data data ed specimen Cholester 40 - 60 MG/DL Low No Jan 24 ol in HDL informati 2016 7:08 on in AM [Mass/vol source ume] in data Serum or Plasma Cholester 0 - 130 mg/dL Normal No Jan 24 ol in LDL informati 2017 7:08 on in AM [Mass/vol source ume] in data Serum or Plasma by calculati on Triglycer 30 - 200 mg/dL Normal No Jan 24 kathi informati 2017 7:08 [Moles/vo on in AM lume] in source Serum or data Plasma Cholester 0 - 40 No Normal No Jan 24 ol in informati informati 2016 7:08 VLDL on in on in AM [Mass/vol source source ume] in data data Serum or Plasma Hemoglobin A1c in Blood Observa Value Referen Units Interpr Notes Date tion ce etation Range Hemoglo 6.9 0.0 - % Normal < 6% Jan 24 bin A1c 7.0 [facility] Blood LEVEL< 7% CONTROL LED DIABETI C LEVEL> 8% POORLY CONTROL LED DIABETI C LEVEL Glucose [Mass/volume] in Capillary blood by Glucometer Observa Value Referen Units Interpr Notes Date ti ce etation Range Glucose 70 - 110 mg/dl High No Jan 14 [Mass/vol informati 2016 ume] in on in 11:08 PM Capillary source blood by data Glucomete r Natriutietic peptide B [Mass/volume] in Serum or Plasma Observa Value Referen Units Interpr Notes Date ti ce etation Range Natriutie 0 - 100 pg/mL Normal No Jan 14 tic inform2016 9:15 peptide B on in PM source [Mass/vol data ume] in Serum or Plasma Fibrin D-dimer FEU [Mass/volume] in Platelet poor plasma Observa Value Referen Units Interpr Notes Date ti ce etation Range Fibrin 0 - 400 ng/mL Normal The Jan 14 D-dimer D-Dimer 2016 9:15 FEU values PM [Mass/vol are ume] in presented Platelet in units poor of plasma mass(ng/m L) ofD-Dimer units(DDU ).This test has been FDA approved as an aid in the assessmen tand evaluatio n of suspected DIC, and thromboem bolic eventsinc luding PE and DVT. However, it does not have approvalf or cut-off values for the exclusion of these condition s. CBC W Auto Differential panel in Blood Observa Value Referen Units Interpr Notes Date ti ce etation Range Basophils 0 - 0.2 K/MM3 Normal No Jan 14 inform2016 9:15 [#/volume on in PM ] in source Blood by data Automated count Basophils 0.1 - 2.0 % Normal No Jan 14 informati 2016 9:15 leukocyte on in PM s in source Blood by data Automated count Eosinophi 0.0 - 0.4 K/mm3 Normal No Jan 14 ls informati 2016 9:15 [#/volume on in PM ] in source Blood by data Automated count Eosinophi 0.1 - % Normal No Aug 13 ls/100 12.0 informati 2017 9:15 leukocyte on in PM s in source Blood by data Automated count Granulocy 1.8 - 7.8 K/mm3 Normal No Jan 14 mick informati 2016 9:15 [#/volume on in PM ] in source Blood by data Automated count Granulocy 37.0 - % Normal No Jan 14 mick/100 80.0 informati 2016 9:15 leukocyte on in PM s in source Blood by data Automated count Hematocri 37.0 - % Normal No Jan 14 t [Volume 47.0 informati 2016 9:15 on in PM Fraction] source of Blood data Hemoglobi 12.2 - g/dL Normal No Jan 14 n 16.2 informati 2016 9:15 [Mass/vol on in PM ume] in source Blood data Lymphocyt 0.7 - 4.5 K/mm3 Normal No Jan 14 es informati 2016 9:15 [#/volume on in PM ] in source Unspecifi data ed specimen by Automated count Lymphocyt 10 - 50.0 % Normal No Jan 14 informati 2016 9:15 [#/volume on in PM ] in source Unspecifi data ed specimen by Automated count Erythrocy 27 - 31.2 pg Normal No Jan 14 te mean informati 2016 9:15 corpuscul on in PM ar source hemoglobi data n [Entitic mass] Erythrocy 31.8 - g/dl Normal No Jan 14 te mean 35.4 informati 2016 9:15 corpuscul on in PM ar source hemoglobi data n concentra tion [Mass/vol ume] by Automated count Erythrocy 82.2 - fl Normal No Jan 14 te mean 97.8 informati 2016 9:15 corpuscul on in PM ar volume source [Entitic data volume] by Automated count Monocytes 0.1 - 1.0 K/mm3 Normal No Jan 14 informati 2016 9:15 [#/volume on in PM ] in source Blood by data Automated count Monocytes 1.7 - 9.3 % Normal No Jan 14 informati 2016 9:15 leukocyte on in PM s in source Blood by data Automated count Platelet 7.4 - fl Normal No Jan 14 mean 10.4 informati 2016 9:15 volume on in PM [Entitic source volume] data in Blood by Automated count Platelets 142 - 424 K/mm3 No No Jan 14 informati informati 2016 9:15 [#/volume on in on in PM ] in source source Blood data data Erythrocy 4.2 - 5.4 M/mm3 Normal No Jan 14 mick informati 2016 9:15 [#/volume on in PM ] in source Amniotic data fluid Erythrocy 11.5 - % Normal No Jan 14 te 17.5 informati 2017 9:15 distribut on in PM ion width source [Entitic data volume] by Automated count Leukocyte 4.8 - K/MM3 Normal No Jan 14 s 10.8 informati 2016 9:15 [#/volume on in PM ] in source Blood data Basic metabolic panel in Blood Observa Value Referen Units Interpr Notes Date tion ce etation Range Urea 7 - 18 mg/dL No No Dec 02 nitrogen informati informati 2016 6:05 [Mass/vol on in on in AM [...] Normal No Dec 02 dioxide, 32.0 informati 2016 6:05 total on in AM [Moles/vo source [...] - 2.0 % Normal No Dec 02 / informati 2017 6:05 leukocyte on in AM s in source Blood by data Automated count Eosinophi 0.0 - 0.4 K/mm3 Normal No Dec 02 ls informati 2017 6:05 [#/volume on in AM ] in source Blood by data Automated count Eosinophi 0.1 - % Normal No Dec 02 ls/100 12.0 informati 2017 6:05 leukocyte on in AM s in source Blood by data Automated count Granulocy 1.8 - 7.8 K/mm3 Normal No Dec 02 mick informati 2017 6:05 [#/volume on in AM ] in source Blood by data Automated count Granulocy 37.0 - % Normal No Dec 02 mick/100 80.0 informati 2017 6:05 leukocyte on in AM s in source Blood by data Automated count Hematocri 37.0 - % Low No Dec 02 t [Volume 47.0 informati 2017 6:05 on in AM Fraction] source of [...] % Normal No Dec 02 es informati 2016 6:05 [#/volume on in AM ] in source Unspecifi data ed specimen by Automated count Erythrocy 27 - 31.2 pg Normal No Dec 02 te mean informati 2016 6:05 corpuscul on in AM ar source hemoglobi data n [Entitic mass] Erythrocy 31.8 - g/dl Normal No Dec 02 te mean 35.4 informati 2016 6:05 corpuscul on in AM ar source [...] 1.7 - 9.3 % Normal No Dec 02 /100 informati [...] Automated count Leukocyte 4.8 - K/MM3 No No Dec 02 s 10.8 informati informati 2017 6:05 [#/volume on in on in AM ] in source source Blood data data Free T4 & TSH panel in Serum or Plasma Observa Value Referen Units Interpr Notes ti ce etation Range Thyroxine 5.93 - ug/dl [...] Normal No Dec 01 in 3.740 informati 2017 2:37 [Units/vo on in PM lume] in source Serum or data Plasma CBC W Auto Differential panel in Blood Observa Value Referen Units Interpr Notes Date tion ce etation Range Basophils 0 - 0.2 K/MM3 Normal No Dec 01 informati 2016 1:25 [#/volume on in PM ] in source Blood by data Automated count Basophils 0.1 - 2.0 % Normal No Dec 01 /100 informati 2016 1:25 leukocyte on in PM s in source Blood by data Automated count Eosinophi 0.0 - 0.4 K/mm3 Normal No Dec 01 ls informati 2016 1:25 [#/volume on in [...] 4.5 K/mm3 Normal No Dec 01 es 2016 1:25 [#/volume on in PM ] [...] 0.1 - 1.0 K/mm3 Normal No Nov 30 informati 2016 1:25 [#/volume on in PM ] in source Blood by data Automated count Monocytes 1.7 - 9.3 % Normal No Nov 30 /100 informati 2016 1:25 leukocyte on in PM s in source Blood by data Automated count Platelet 7.4 - fl Normal No Dec 01 mean 10.4 informati 2016 1:25 volume on in PM [Entitic source volume] data in Blood by Automated count Platelets 142 - 424 K/mm3 Normal No Dec 01 informati 2016 1:25 [#/volume on in PM ] in source Blood data Erythrocy 4.2 - 5.4 M/mm3 Normal No Dec 01 mick informati 2016 1:25 [#/volume on in PM ] in source Amniotic data fluid Erythrocy 11.5 - % Normal No Dec 01 te 17.5 informati 2016 1:25 distribut on in PM ion width source [Entitic data volume] by Automated count Leukocyte 4.8 - K/MM3 Normal No Dec 01 s 10.8 informati 2016 1:25 [#/volume on in PM ] in source Blood data Natriutietic peptide B [Mass/volume] in Serum or Plasma Observa Value Referen Units Interpr Notes Date tion ce etation Range Natriutie 0 - 100 pg/mL Normal No Nov 16 tic informati 2016 3:25 peptide B on [...] U/L Normal No Nov 16 phosphata informati 2016 3:25 se on in PM [Enzymati source c data activity/ volume] in Serum or Plasma Bilirubin 0.2 - 1.0 mg/dL Normal No Nov 16 .total informati 2016 3:25 [Mass/vol on in PM ume] in source Serum or data Plasma Urea 7 - 18 mg/dL Normal No Nov 16 nitrogen informati 2016 3:25 [Mass/vol on in PM ume] in source Serum or data Plasma Calcium 8.5 - mg/dL Normal No Nov 16 [Mass/vol 10.1 informati 2016 3:25 ume] in on in PM Serum or source Plasma data Chloride 98 - 107 mmoL/L Normal No Nov 16 [Moles/vo informati [...] ML/MIN No REFERENCE Nov 16 informati RANGE: 2017 3:25 glomerula on in >60 PM r [...] - 37 U/L Normal No Nov 16 informati 2016 3:25 aminotran on in PM sferase source [Enzymati data c activity/ volume] in Serum or Plasma Alanine 12 - 78 U/L Normal No Nov 16 aminotran informati 2016 3:25 sferase on in PM [Enzymati source c data activity/ volume] in Serum or Plasma Protein 6.4 - 8.2 gm/dL Normal No Nov 16 [Mass/vol informati 2016 3:25 ume] in on in PM Serum or source Plasma data Thyroxine (T4) free [Mass/volume] in Serum or Plasma Observa Value Referen Units Interpr Notes Date ti ce etation Range Thyroxine 0.76 - ng/dL Normal No Nov 16 (T4) 1.46 informati 2016 3:25 free on in PM [Mass/vol source ume] in data Serum or Plasma Thyrotropin [Units/volume] in Serum or Plasma Observa Value Referen Units Interpr Notes Date ti ce etation Range Thyrotrop 0.358 - uIU/ml Normal No Nov 15 in 3.740 informati 2016 3:25 [Units/vo on in PM lume] in source Serum or data Plasma CBC W Auto Differential panel in Blood Observa Value Referen Units Interpr Notes Date ti ce etation Range Basophils 0 - 0.2 K/MM3 Normal No Nov 15 inform2016 3:25 [#/volume on in PM ] in source Blood by data Automated count Basophils 0.1 - 2.0 % Normal No Nov 15 /100 informati 2016 3:25 leukocyte on in PM s in source Blood by data Automated count Eosinophi 0.0 - 0.4 K/mm3 Normal No Nov 16 ls informati 2016 3:25 [#/volume on in PM ] in source Blood by data Automated count Eosinophi 0.1 - % Normal No Nov 16 ls/100 12.0 informati 2016 3:25 leukocyte on in PM s in source Blood by data Automated count Granulocy 1.8 - 7.8 K/mm3 Normal No Nov 15 mick informati 2016 3:25 [#/volume on in PM ] in source Blood by data Automated count Granulocy 37.0 - % Normal No Nov 16 mick/100 80.0 informati 2016 3:25 leukocyte on in PM s in source Blood by data Automated count Hematocri 37.0 - % Low No Nov 16 t [Volume 47.0 informati 2016 3:25 on in PM Fraction] source of Blood data Hemoglobi 12.2 - g/dL Normal No Nov 16 n 16.2 informati 2016 3:25 [Mass/vol on in PM ume] in source Blood data Lymphocyt 0.7 - 4.5 K/mm3 Normal No Nov 16 es informati 2016 3:25 [#/volume on in PM ] in source Unspecifi data ed specimen by Automated count Lymphocyt 10 - 50.0 % Normal No Nov 16 es informati 2016 3:25 [#/volume on in PM ] in source Unspecifi data ed specimen by Automated count Erythrocy 27 - 31.2 pg Normal No Nov 15 te mean inform2016 3:25 corpuscul on in PM ar source [...] 16 ZA B DETECTE DETECTD informa informa @[id number] ANTIGEN D tion in tion in 5 EXP 7:40 PM source source DATE data data @ 930 Streptococcus pyogenes Ag [Presence] in Unspecified specimen [...]
--- OUTSIDE RECORDS SUMMARY | 2017-03-15 22:14 | External Medical Summary Rpt ---
Author Author OMAIRA Webb, OMAIRA [employer] Address Unknown Phone Unavailable [...] 24 bin A1c 7.0 NON-TYE [address] [facility] AM Blood LEVEL< 7% CONTROL LED [...] 16 ZA B DETECTE DETECTD informa informa @[id number] ANTIGEN D tion in tion in 5 [...]
== END 2017-03-08 19:34 | disposition left against medical advice (07) ==
LOC: UTC 18:37
DX: R07.0 Pain in throat (principal)

== ENCOUNTER 2017-03-12 15:14 | Emergency (ER) | payer MEDICAID ==
[~2017-03-12] VITALS: Ht 172.7 cm; Wt 129.3 kg
[2017-03-12 15:26] LABS: URINE BILIRUBIN - DIPSTICK NEGATIVE (NEG); URINE BLOOD NEGATIVE (NEG)
--- NOTE | 2017-03-12 15:50 | Emergency Room Report ---
History of Present Illness Time Seen by MD Brar Presenting Problem in Triage Pt arrived:Walked Presenting Problem:FLANK PAIN Onset of symptoms date/time:03/10/1712/18/899 or onset unknown for:MEDICAL HX UNKNOWN Treatment Prior to Arrival: [facility] Provided by: Sepsis Risk Assessment: Temp: 98.1 B/P: 132/80 MAP: 97 Pulse: 88 Resp: 20 Recent fever? N Clinical Suspician of Infection? N Mental Status: 1 - Regular (Normal Baseline) Sepsis Risk:Low Sepsis Risk Have you (or family members/close friends) recently traveled outside the [place]? N If Yes, where/when: Have you had exposure to infectious disease within the past month? TB? Other? Specify: R flank pain, positional over last day or so, no loss of bowel or bladder function. Seen at [facility] and UA negative so sent to ED for further eval and CT. Reports no urinary sx, no fever, no cough. Has had choly, EDWAR, still has an appendix. Moved bowels well today and has no blood from above or below; appetite good. Pain is at times intermittent, feels better to hold very still. It radiates to the RLQ. ALLERGIES Coded Allergies: erythromycin base (Intermediate, I-HIVES 01/14/17) ibuprofen (Intermediate, SWELLING 01/14/17) levofloxacin (From LEVAQUIN) (S-DIFF. BREATHING 01/14/17) Home Medications Active Scripts Methylprednisolone (Medrol Dose Dean) 4 MG PO UD #1 DEAN Prov: 01/12/17 Reported Medications Estradiol 1 EACH TD 2 X WEEK #16 History Medical History General CAD? No Angina: No MO: No Hypertension? Yes Hyperlipidemia? No CHF? No DVT? No PE? No COPD? No Asthma? Yes Anemia? No GERD? No Gastric ulcers? No GI Bleed? No Hernia? No Thyroid Problems? No Hypothyroidism? No CVA? No Seizures? No Diabetes? No Renal Insuffiency? No End Stage Renal Disease? No UTI? Yes Stones? Yes BPH? No GB Disease: Yes Nephritic Syndrome? No Asplenia? No Hepatitis? No Sickle Cell Disease? No Arthritis? No Migraines? No Cataracts? No Glaucoma? No MRSA? No HIV? No TB? No Anxiety? No Depression? No Cancer? No More? 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 Musculoskeletal back pain Physical Exam Vital Signs Vital Signs Date Time Temp Pulse Resp B/P Pulse O2 O2 Flow FiO2 Ox Delivery Rate 03/12 1943 98.3 78 18 161/93 98 03/12 1857 76 14 155/94 99 03/12 1658 80 18 134/87 97 03/12 1527 98.1 88 20 132/80 97 03/12 1518 98.1 88 20 132/80 97 General Appearance normal appearance, WD/WN, no apparent distress, obese Eye Exam - bilateral eye normal exam, bilateral eye PERRL, bilateral eye EOMI Neck normal inspection, non-tender, supple, full range of motion Respiratory Status Yes: trachea midline, chest symmetrical, non tender chest. No: respiratory distress, tender on palpation, use of accessory muscles, pain on inspiration, pain on expiration, productive cough, non productive cough. Lung Sounds bilateral: normal breath sounds, lungs clear. Cardiovascular normal exam, regular rate/rhythm, no peripheral edema, no gallop, no JVD, no murmur, no rub, normal peripheral pulses Gastrointestinal normal bowel sounds, normal exam, non tender, soft, no organomegaly, no guarding, no rebound Back normal inspection (trigger point R glut), no CVA tenderness, no vertebral tenderness, muscle spasm, strt leg raising(L)-NML, strt leg raising(R)-NML Extremities non-tender, normal range of motion, normal inspection, normal capillary refill, no calf tenderness, no pedal edema, pelvis stable Strength 5 Upper Ext (L), 5 Upper Ext (R), 5 Lower Ext (L), 5 Lower Ext (R) Neurologic alert, normal exam, no motor/sensory deficits, oriented x 3 ( ambulatory w/ clear speech) Glascow Coma Scale Glascow Coma Scale Response Value EYE response: 4 Spontaneously 4 MOTOR response: 6 OBEYS 6 VERBAL response: 5 Oriented & Converses 5 Total 15 Reflexes Reflexes normal Yes DTR 2+ ankle (R), 2+ ankle (L) Skin intact, normal color, no rash cons.w/shingles Lymphatic no adenopathy Medical Decision Making LABS/Meds/Orders Pt receiving controlled substance in ED? No Results/Orders Laboratory Tests 03/12/17 1540: Lipase 170 03/12/17 1540: Sodium 138, Potassium 3.6, Chloride 103, Carbon Dioxide 27, BUN 13, Creatinine 0.8, Estimated Creat Clear 179, Estimated GFR (MDRD) 77, Glucose 138 H, Calcium 9.1, Total Bilirubin 0.3, AST 34, ALT 64, Alkaline Phosphatase 70, Total Protein 7.9, Albumin 4.0, Globulin 3.9 H, Albumin/Globulin Ratio 1.0 L, WBC 6.9, RBC 4.68, Hgb 13.0, Hct 39.1, MCV 83.7, RDW 14.5, Plt Count 202, MPV 8.6, Gran % 51.5, Gran # 3.6, Lymphocytes % 35.5, Monocytes % 6.6, Eosinophils % 5.7, Basophils % 0.7, Lymphocytes # 2.5, Monocytes # 0.5, Eosinophils # 0.4, Basophils # 0.1, PUBS MCHC 33.3, MCH 27.8 03/12/17 1518: Urine Color YELLOW, Urine Appearance CLEAR, Urine pH 5.5, Ur Specific [place] >= 1.030, Urine Protein NEGATIVE, Urine Ketones NEGATIVE, Urine Blood NEGATIVE, Urine Nitrate NEGATIVE, Urine Bilirubin NEGATIVE, Urine Urobilinogen 0.2, Ur Leukocyte Esterase NEGATIVE, Urine Glucose NEGATIVE Current Medication Orders Sig/Asher Start time Last Medication Dose Route Stop Time Status Admin Iopamidol 75 ML ONCE ONE 03/12 1900 UNV 03/12 IV 03/12 1901 184 Sodium Chloride 10 ML ONCE ONE 03/12 1900 UNV 03/12 IV 03/12 190 184 Diatrizoate Meglum/ 30 ML ONCE ONE 03/12 1700 DC 03/12 Diatrizoate Sod PO 03/12 170 1655 Diatrizoate Meglum/ 0 .STK-MED ONE 03/12 1655 DC Diatrizoate Sod .ROUTE Sodium Chloride 10 ML PRN PRN 03/12 1545 AC IV 03/13 1531 Sodium Chloride 1,000 ML .Q1H1M 03/12 1545 DC 03/12 IV 03/12 1645 1543 Sodium Chloride 10 ML PRN PRN 03/12 1545 AC IV 03/13 1532 Sodium Chloride 1,000 ML .STK-MED ONE 03/12 1543 DC IV Orders Procedure Date/time Status DIET-NOTHING BY MOUTH 03/[address] ABD & PELVIS W/ CONTRAST 03/[address] ABD/PELVIS REQ 03/12 1652 Complete LIPASE 03/[address] ABD/PELVIS REQ 03/12 153 Complete IV SALINE LOCK 03/12 1532 Active COMPLETE METABOLIC PANEL 03/12 153 Complete CBC WITH AUTO DIFF 03/12 153 Complete UTC URINE DIPSTICK 03/12 1518 Complete XRAY/CT/US XRAY/CT/US 1 CT abdomen, pelvis CT interpretation by reviewed by me, discussed w/radiologist Time results known: 1651 CT Results unable to see lumen well in ascending colon; Dr. Maxwell from radiology service recommends repeat CT with IV and PO dye given hx neoplasm XRAY/CT/US 2 CT interpretation by reviewed by me ([facility] report reviewed) Time results known: 1948 CT Results normal/NAD, no abnormalities at all :with IV and PO contrast Progress ED Progress Notes Date 03/12/17 Time 1950 Comment I have rechecked the patient and she drove here so no Flexeril given. She continues to have a trigger point, right lat, soft abdomen. Agrees to close f/u PCP. Departure Departure Time of Disposition 1951 Disposition DC Home or Self Care(routine) Clinical Impression Primary Impression: Right flank pain Secondary Impressions: History of neoplasm Condition STABLE Referrals YAS MONIQUE (Family) Patient Instructions DI for Flank Pain Additional Instructions There is a musculoskeletal component to your pain: Rx Flexeril, recommend Epsom salt warm baths. see Yas in one day for recheck. Watch for fever, rashes, any concerns return to ED or see Yas right away. Discharge Counseling Counseled pt/family regarding diagnosis, test results, medications/RX, home care, follow up needs Prescriptions Current Visit Scripts Cyclobenzaprine Hcl (Flexeril) 10 MG PO TID PRN spasm #10 TAB ED Critical Care Critical Care No at 1956
[2017-03-12 15:54] LABS: LYMPH # 2.5 K/mm3 (0.7-4.5); LYMPH % 35.5 % (10-50.0)
--- NOTE | 2017-03-12 16:38 | RADIOLOGY REPORT PS360 ---
CT ABD PELVIS W/O CONTRAST CLINICAL INDICATION: Right flank pain FLANK PAIN ORDERING PHYSICIAN: Blossom Hernandez MD PATIENT AGE: 46 years COMPARISON: 11-16 TECHNIQUE: Axial images obtained with sagittal and coronal reformats. PROCEDURE: Oral Contrast: None IV Contrast: None . FINDINGS: There is a 7 mm noncalcified nodule in the right lung base laterally in the subpleural region unchanged. A calcified granuloma is present within the lingula. There is diffuse fatty liver. There has been a prior cholecystectomy. The spleen, adrenal glands, and pancreas are unremarkable. No renal calculi or hydronephrosis. No ureteral calculus. There is a faint area of parenchymal calcification in the mid aspect of the left kidney unchanged. Unremarkable urinary bladder. There is focal thickening of the proximal to mid aspect of the ascending colon with mild stranding in the paracolic fat. The remaining colon has an unremarkable appearance. No evidence of appendicitis. No abnormal fluid collections. There has been prior hysterectomy. Postsurgical changes are present involving the anterior abdominal wall in the infraumbilical region. There is a small umbilical hernia containing fat. No acute bony anomalies. IMPRESSION: There is focal thickening of the proximal to mid aspect of the ascending colon with some mild stranding of the pericolic fat. Differential diagnosis would include an area of diverticulitis. A definite diverticulum is however not identified at this area but could be obscured due to the underlying inflammation. Focal colitis or neoplasm is also a consideration. Consider follow-up with IV and oral contrast for better delineation of the abnormality.
[2017-03-12] MEDS ORDERED: FLEXERIL10 MG PO (19:55)
[2017-03-12 19:58] VITALS: BP 161/93
--- NOTE | 2017-03-13 09:57 | RADIOLOGY REPORT PS360 ---
CT ABD PELVIS W/ CONTRAST CLINICAL INDICATION: Right-sided abdominal pain, equivocal unenhanced CT abdomen. HX NEOPLASM, RT SIDED PAIN AND EQUIVOCAL CT W/O DYE ORDERING PHYSICIAN: Blossom Hernandez MD PATIENT AGE: 46 years COMPARISON: Unenhanced exam from the same day TECHNIQUE: Axial images obtained with sagittal and coronal reformats. PROCEDURE: Oral Contrast: Gastroview IV Contrast: 75 mL of Isovue-370 . FINDINGS: No acute finding in the lung bases. Nonspecific nodular opacity once again noted right lower hemithorax laterally. There is diffuse hepatic steatosis. There has been prior cholecystectomy. Spleen, adrenal glands, pancreas, and kidneys have an unremarkable appearance. There may be a small right renal cyst at 9 mm. There is a moderate amount retained colonic feces. There is only minimal stranding of the pericolic fat in the region of the previously described abnormality in the area of the proximal to mid ascending colon. This appears less apparent on these post enhanced images and was probably exacerbated by the collapsed mucosa on the previous exam. This is suspicious for an area of inflammation and could be related to focal colitis or epiploic appendagitis. Follow-up study may confirm resolution. On the coronal images there is an area of decreased attenuation surrounded by halo of increased density in this region which may be seen with epiploic appendagitis. No free air. No intestinal obstruction. No evidence of appendicitis. Postsurgical changes are present involving the anterior abdominal wall IMPRESSION: 1. Persistent but less apparent stranding of the pericolic fat in the proximal to mid ascending colon region anteriorly. The decreased prominence is likely related to the technique. The findings are suspicious for epiploic appendagitis. Continued follow-up recommended to confirm resolution.
== END 2017-03-12 20:00 | disposition home or self-care (01) ==
LOC: UTC 15:14 → ER 15:16
PROVIDERS: Emergency Medicine; Nurse Practitioner Family
DX: R10.31 Right lower quadrant pain (principal); Z88.1 Allergy status to other antibiotic agents; I10 Essential (primary) hypertension; J45.909 Unspecified asthma, uncomplicated
CPT/HCPCS: Q9967